=== PATIENT | male | born 1945 | race Caucasian/White ===

== ENCOUNTER 2018-03-05 04:23 | Emergency (ER) | payer MEDICARE, MEDICAID, SELFPAY ==
[2018-03-05 04:24] VITALS: BP 127/67; PULSE 72; RESP 16; TEMP 36.6; O2SAT 97; BMI 32.1
[2018-03-05 05:24] LABS: Absolute Lymphocyte Count 1.57 X10^3/ul (0.83-4.51); Basophil# 0.04 X10^3/uL; Basophil% 0.2 % (0-1); Eosinophil# 0.19 X10^3/uL; Eosinophils% 0.9 % (0-5); Hematocrit 44.4 % (40-54); Hemoglobin 15.5 g/dl (13.0-16.5); Lymphocyte # 1.57 X10^3/ul (4.0); Lymphocyte % 7.6 % (19-41); Mean Corp Hgb Conc 34.9 g/gl (32-36); Mean Corpuscular Hgb 33.3 pg (27.0-32.0); Mean Corpuscular Volume 95.5 fL (80-94); Mean Platelet Vol. 10.9 fl (6.2-12.0); Monocyte% 8.2 % (0-10); Neutrophil # 17.04 X10^3/uL (2.7-7.7); Neutrophil % 82.5 % (47-70); Platelet Count 257 K/mm3 (150-450); RBC Distribution Width CV 13.4 % (11.6-14.6); RBC Distribution Width SD 45.9 fl (35.1-43.9); Red Blood Count 4.65 M/mm3 (4.6-6.2); White Blood Count 20.7 K/mm3 (4.4-11.0)
[2018-03-05 05:27] LABS: Differential Indicated SCAN CRITERIA MET; POSITIVE COUNT NO; POSITIVE DIFFERENTIAL YES; POSITIVE MORPHOLOGY NO
--- NOTE | 2018-03-05 05:47 | CT_ITS ---
STUDY: CT ABDOMEN AND PELVIS WITH CONTRAST REASON FOR EXAM: Male, 73 years old. Right upper quadrant pain. Leukocytosis. Diarrhea for 3 days. RADIATION DOSAGE (If Supplied By Facility): CTDIvol = ( 19.11 ) mGy, DLP = ( 1074.03 ) mGycm TECHNIQUE: Transaxial images were obtained from the dome of the diaphragm to the symphysis pubis without oral contrast. 100 ml of Isovue 300 contrast was administered. Sagittal and coronal images were reconstructed. Individualized dose optimization techniques were used for this CT. COMPARISON: June 13, 2017. FINDINGS: Possible bilateral lower lobe subsegmental atelectasis or fibrosis. The visualized portions of the heart are within normal limits. Small hiatal hernia. Normal liver. Normal gallbladder and extrahepatic biliary system. Normal spleen. Normal pancreas. Normal bilateral adrenal glands. Stable bilateral renal cysts largest arising from the midpole left kidney measuring 3.1 cm. Normal visualized stomach. Wall thickening and perienteric inflammatory changes involving the distal ileum including the terminal ileum. Normal colon. The appendix is visualized and appears normal. There is atherosclerotic calcification of the abdominal aorta and common iliac arteries with 1.5 cm dilatation of the proximal left common iliac artery unchanged.. Normal inferior vena cava. Normal retroperitoneum. No intra-abdominal free air. Normal urinary bladder. Prostate gland radiation implant seeds. The prostate gland is not enlarged. Normal abdominal wall. Postkyphoplasty changes T11 present previously. Multilevel degenerative changes of the lumbar spine. No evidence of metastatic disease. CT/Abdomen/Pelvis W IV Cont ONLY IMPRESSION: Enteritis involving the distal ileum. Considerations include inflammatory bowel disease or infection. Small hiatal hernia. Stable bilateral renal cysts. Mild dilatation of left common iliac artery unchanged. Prostate gland radiation implant seeds. Postkyphoplasty changes T11. Electronically Signed: Charbel Mayen MD at 6:46 EDT , Service support ,
[2018-03-05 05:51] LABS: AST(SGOT) 29 U/L (15-37); Alanine Aminotransfer ALT/SGPT 28 U/L (16-61); Albumin, Serum 3.3 g/dL (3.2-5.0); Alkaline Phosphatase 64 U/L (45-117); Anion Gap 11 (5-15); BUN 12 mg/dL (7-18); BUN/Creat Ratio 15.9 RATIO (10-20); Bilirubin, Direct 0.23 mg/dL (0.00-0.30); Calcium,Total 8.4 mg/dL (8.5-10.1); Chloride 106 mmol/L (98-107); Creatinine, Serum 0.75 mg/dL (0.70-1.30); EST Glomerular Filtration Rate 108 mL/min (>60); Est Glom Filt Rate - Afr Amer 130 mL/min (>60); Estimated Creatinine Clearance 58.48 ml/min; Globulin 3.8 g/dL (2.2-4.2); Glucose 115 mg/dL (74-106); Lipase 128 U/L (73-393); Potassium 4.5 mmol/L (3.5-5.1); Protein, Total 7.1 g/dL (6.4-8.2); Sodium Level 139 mmol/L (136-145)
--- NOTE | 2018-03-05 06:36 | ED.DCSUM_ITS ---
- ER Visit Summary Date of Service: 03/05/18 Chief Complaint: Epigastric abdominal pain History of Present Illness: The patient is a 73 M with 3-day history of epigastric abdominal pain with loose stools. Denies any obvious melena no vomiting or any hematemesis. No fever. No drastic weight loss. He has had 4- 5 episodes per day for the last 3 days of loose stools. No history of infectious diarrhea. No recent antibiotic use. States epigastric pain is sharp at times. Denies any fever. No prior abdominal surgeries. Physical Examination: Older male no acute distress. Vital signs are stable afebrile. Initial blood pressure 120s over 67. He does not look septic or toxic. H EENT exam unremarkable. Moist wheeze membranes. Neck nontender no lymphadenopathy. Lungs clear to auscultation bilaterally. Heart regular rhythm no murmur. Abdomen is soft nondistended normal bowel sounds no peritoneal signs. No hernias no masses no organomegaly. He is tender in epigastric region only. No Dupont's or McBurney's point tenderness. No pulsatile mass. Ventral hernia that easily reduces on tone. No signs of obstruction, incarceration or strangulation. He is moving all 4 extremities. Neurovascular intact. Back exam nontender. Neurologic exam normal. Test Results: CBC is elevated 20,700. Normal H&H and bands. Chemistries normal. Normal gap and creatinine. Liver enzymes are normal other than total bilirubin slightly elevated at 1.4. Lipase is normal as is the troponin. EKG is a sinus rhythm rate of 65 with a first-degree AV block otherwise unchanged from prior EKG from May of last year. CT abdomen pelvis with IV contrast only shows enteritis of the distal ileum. Also prostate gland radiation implant seeds. Otherwise unremarkable. Read by the radiologist reviewed by me. Emergency Department Course and Treatment: Patient is currently resting comfortably. He has received IV Protonix. His abdominal exam is not significantly changed. Due to the white count he will undergo a CT abdomen and pelvis to evaluate him for epigastric abdominal pain. Treatment Plan: Repeat exams at both 05:17 and 0700 patient is doing well. Abdomen is benign. He and I discussed all his tests and results. He is comfortable being discharged home. We will continue his Protonix at home. Follow-up his primary care physician. Disposition: Discharge Impression: Acute epigastric abdominal pain of uncertain etiology Leukocytosis This note was generated with Betty dictation software. It may contain incorrect words, spelling, and punctuation that were not noted in review of the chart prior to signing ED Disposition - Plan for ED Patient: Chief Complaint: Diarrhea Referrals: Chaitanya Castaneda Jr., MD [Primary Care Provider] -
--- NOTE | 2018-03-05 07:03 | ED.DEP ---
ED Disposition - Plan for ED Patient: Disposition: Home or Assisted Living Chief Complaint: Diarrhea Instructions: ED Abdominal Pain Unkn Cause Referrals: Chaitanya Castaneda Jr., MD [Primary Care Provider] - 3-5 Days if not improving Additional Instructions: Continue your daily Protonix. Avoid excessive caffeine, alcohol and any spicy foods. [place] diet and increase slowly. Follow-up your primary care physician if not improving. Return to ER if feeling worse, black or bloody stool, vomiting blood. Or fever.
[2018-03-05 07:11] VITALS: BP 129/68; PULSE 71; RESP 15; O2SAT 96
== END 2018-03-05 07:11 | disposition home or self-care (01) ==
PROVIDERS: Emergency Provider Emergency Medicine; Family Provider Internal Medicine; PCP Internal Medicine
DX: R10.13 Epigastric pain (principal); D72.829 Elevated white blood cell count, unspecified; I44.0 Atrioventricular block, first degree; R19.7 Diarrhea, unspecified; I10 Essential (primary) hypertension; E78.00 Pure hypercholesterolemia, unspecified; K21.9 Gastro-esophageal reflux disease without esophagitis
CPT/HCPCS: 74177; 80048; 80076; 83690; 84484; 85025; 93005; 99285; J7050; Q9967; A4216

== ENCOUNTER 2018-03-07 10:39 | Outpatient (REF) | payer SELFPAY ==
[2018-03-07 10:40] VITALS: BP 143/80; PULSE 91; RESP 15; TEMP 36.6; BMI 31.8
--- NOTE | 2018-03-07 11:04 | ED.VISSUMM ---
- ER Visit Summary Date of Service: 03/07/18 Chief Complaint: Skin tear right upper extremity History of Present Illness: The patient is a 73 M presenting with skin tear right upper extremity. Patient was getting off the elevator and the door hit him on the right arm. He sustained a skin tear to the right forearm. He does not recall his last tetanus immunization. He is not on anticoagulants. No other injuries. Physical Examination: Vitals are stable. Patient is afebrile. Alert no acute distress. HEENT exam is unremarkable. Lungs are clear and equal bilaterally. Heart is regular rate and rhythm. Extremities 3 cm skin tear to right forearm, AFROM, normal distal pulse. Skin is warm and dry. No focal neurologic deficit. Remainder of exam is unremarkable. Emergency Department Course and Treatment: Patient is given tetanus IM. Wound was cleaned and dressed. Advised wound care instructions. Advised to follow with primary care physician. Advised return to ED for worsening complaints. Disposition: Discharge home Impression: Skin tear right upper extremity This note was generated with eduPad dictation software. It may contain incorrect words, spelling, and punctuation that were not noted in review of the chart prior to signing ED Disposition - Plan for ED Patient: Chief Complaint: Wound Instructions: ED Avulsion Dermal Referrals: Chaitanya Castaneda Jr., MD [Primary Care Provider] -
[2018-03-07] MEDS: Diphth,Pertuss(Acell),Tet Vac 0.5 ML Vial IM (11:31)
== END 2018-03-07 11:39 | disposition home or self-care (01) ==
LOC: ED 10:39
PROVIDERS: Family Provider Internal Medicine; PCP Internal Medicine; Visit Provider Emergency Medicine
DX: S51.811A Laceration without foreign body of right forearm, initial encounter (principal); W22.8XXA Striking against or struck by other objects, initial encounter; Y93.9 Activity, unspecified; Y92.89 Other specified places as the place of occurrence of the external cause; Y99.9 Unspecified external cause status; Z23 Encounter for immunization; I10 Essential (primary) hypertension; K21.9 Gastro-esophageal reflux disease without esophagitis
CPT/HCPCS: 90471; 90715

== ENCOUNTER 2018-06-24 09:34 | Observation (INO) | payer MEDICARE, MEDICAID, SELFPAY ==
[2018-06-24] VITALS (11 sets, daily range): BP systolic 121–166; BP diastolic 56–72; PULSE 52–85; RESP 14–18; TEMP 36.5–36.9; O2SAT 94–99; BMI 32.2; BMI 31.8
--- NOTE | 2018-06-24 09:51 | CT_ITS ---
STUDY: CT ABDOMEN AND PELVIS WITHOUT CONTRAST REASON FOR EXAM: Male, 73 years old. RT SIDED CP, RT FLANK PAIN, HX-KS, GERD, COPD, EMPHYSEMA, HTN, COPD, EMPHYSEMA, PROSTATE CA-FIDUCIALS FOR RAD TX RADIATION DOSAGE (If Supplied By Facility): CTDIvol = ( 20.19 ) mGy, DLP = ( 963.32 ) mGycm TECHNIQUE: Transaxial images were obtained from the dome of the diaphragm to the symphysis pubis without oral contrast, and without intravenous contrast. Sagittal and coronal images were reconstructed. Individualized dose optimization techniques were used for this CT. COMPARISON: None. FINDINGS: Posterior basilar atelectatic changes with granulomatous change the right lower lung. The visualized portions of the heart are within normal limits. Normal liver. Normal gallbladder and extrahepatic biliary system. Normal spleen. Normal pancreas. Normal bilateral adrenal glands. Hypodensity within the right lateral cortex of the right kidney consistent with cortical cyst is present measuring 1.7 cm. Exophytic left hypodense renal cyst measuring 3 cm in diameter is present with simple Hounsfield units. Normal visualized stomach. Normal small intestine. Normal colon. The appendix is visualized and appears normal. There is diffuse atherosclerotic calcification of the abdominal aorta, without a demonstrated aneurysm. Normal inferior vena cava. Normal retroperitoneum. Normal urinary bladder. Surgical clips are noted within the prostate. Normal abdominal wall. Normal osseous structures. CT/Abdomen/Pelvis without Cont IMPRESSION: Senescent changes and renal cysts as above with no evidence of acute intra-abdominal process or focal inflammation. Electronically Signed: Orlando Parker DO at 10:44 EST , Service support ,
--- NOTE | 2018-06-24 09:51 | EKG12_ITS ---
Test Reason : CP Blood Pressure : / mmHG Vent. Rate : 078 BPM Atrial Rate : 078 BPM P-R Int : 184 ms QRS Dur : 094 ms QT Int : 390 ms P-R-T Axes : 066 047 049 degrees QTc Int : 444 ms Normal sinus rhythm Normal ECG Confirmed by ADÁN WASHINGTON, RIAZ ([id number]), photographic editor MAGALY LYNN ([id number] on 06/27/2018 2:24:31 PM Referred By: KHLOE Confirmed By:RIAZ MCCAIN MD
--- NOTE | 2018-06-24 09:51 | RAD_ITS ---
STUDY: X-RAY CHEST REASON FOR EXAM: Male, 73 years old. Chest and back pain. TECHNIQUE: Single AP portable view of the chest. COMPARISON: 31 July 2014 FINDINGS: The lungs are clear and expanded. There is no demonstrated pleural abnormality. Normal size heart. Normal mediastinum and elvin. Normal visualized pulmonary arteries. There is atherosclerotic calcification of the aortic arch with tortuosity. Normal visualized thoracic spine. Normal visualized ribs, clavicles, and shoulders. There is no demonstrated abnormality of the visualized soft tissue structures of the upper abdomen. RAD/Chest 1 View (Portable) IMPRESSION: No evidence of acute cardiopulmonary process. Electronically Signed: Orlando Parker DO at 10:34 EST , Service support ,
[2018-06-24] MEDS: 0.9% Normal Saline 1,000 ML 150 ML IV (09:53)
[2018-06-24 10:06] LABS: Absolute Lymphocyte Count 1.86 X10^3/ul (0.83-4.51); Absolute Neutrophil Count 11.8 X10^3/uL (2.0-7.7); Basophil# 0.05 X10^3/uL; Basophil% 0.3 % (0-1); Eosinophil# 0.03 X10^3/uL; Eosinophils% 0.2 % (0-5); Hematocrit 46.1 % (40-54); Hemoglobin 15.9 g/dl (13.0-16.5); Lymphocyte # 1.86 X10^3/ul (4.0); Lymphocyte % 12.7 % (19-41); Mean Corp Hgb Conc 34.5 g/gl (32-36); Mean Corpuscular Hgb 32.1 pg (27.0-32.0); Mean Corpuscular Volume 92.9 fL (80-94); Mean Platelet Vol. 10.5 fl (6.2-12.0); Monocyte# 0.61 X10^3/uL; Monocyte% 4.2 % (0-10); Neutrophil # 11.75 X10^3/uL (2.7-7.7); Neutrophil % 80.5 % (47-70); Platelet Count 289 K/mm3 (150-450); RBC Distribution Width CV 13.8 % (11.6-14.6); RBC Distribution Width SD 45.8 fl (35.1-43.9); Red Blood Count 4.96 M/mm3 (4.6-6.2); White Blood Count 14.6 K/mm3 (4.4-11.0)
[2018-06-24 10:07] LABS: Differential Indicated SCAN CRITERIA MET; POSITIVE COUNT NO; POSITIVE DIFFERENTIAL NO; POSITIVE MORPHOLOGY YES
[2018-06-24 10:11] LABS: Bacteria 0 SEEN /hpf (None Seen); Mucous, Urine 0 SEEN /hpf (<or=2+); Red Blood Cells-Urine 0 SEEN /hpf (0-5); White Blood Cells 0 SEEN /hpf (0-5)
[2018-06-24 10:13] LABS: Color, Urine Yellow (Yellow); Glucose, Dipstick Normal (Normal); Ketone-Dipstick Negative (Negative); Leukocyte Esterase-Dipstick Negative /ul (Negative); Nitrite-Dipstick Negative (Negative); Occult Blood-Urine Negative /ul (Negative); Protein-Dipstick Negative (Negative); Urine Bilirubin Dipstick Negative (Negative); Urine Clarity Clear (Clear); Urine Urobilinogen Normal (Normal); Urine pH 6.5 (5.0 - 8.0)
[2018-06-24 10:13] LABS: D-Dimer Quantitative (DVT/PE) 0.56 FEU/ug/m (0.27-0.49)
[2018-06-24 10:17] LABS: ALB/GLOB Ratio 0.9 RATIO (0.9-2.4); AST(SGOT) 12 U/L (15-37); Alanine Aminotransfer ALT/SGPT 31 U/L (16-61); Albumin, Serum 3.6 g/dL (3.2-5.0); Alkaline Phosphatase 73 U/L (45-117); Anion Gap 9 (5-15); BUN 13 mg/dL (7-18); BUN/Creat Ratio 17.6 RATIO (10-20); Calcium,Total 8.4 mg/dL (8.5-10.1); Chloride 105 mmol/L (98-107); Creatinine, Serum 0.74 mg/dL (0.70-1.30); EST Glomerular Filtration Rate 110 mL/min (>60); Est Glom Filt Rate - Afr Amer 133 mL/min (>60); Estimated Creatinine Clearance 60.59 ml/min; Globulin 4.2 g/dL (2.2-4.2); Glucose 118 mg/dL (74-106); Lipase 152 U/L (73-393); Potassium 3.2 mmol/L (3.5-5.1); Protein, Total 7.8 g/dL (6.4-8.2); Sodium Level 138 mmol/L (136-145)
[2018-06-24 10:18] LABS: Squamous Epithelial Cells - UA 0-5 SEEN /hpf (0-5)
--- NOTE | 2018-06-24 11:10 | ED.VISSUMM ---
- ER Visit Summary Date of Service: 06/24/18 Chief Complaint: [Chest pain] History of Present Illness: The patient is a 73 M presents with chest pain that started this morning about an hour ago. Patient states that he was driving when he had sudden onset of severe pain in his right flank that radiated up his back and into his right shoulder. Patient did not develop diffuse chest discomfort that he described as tightness and a dull ache. Patient felt somewhat short of breath. Night any nausea or vomiting. Patient called EMS who gave him an aspirin and a nitro which resolved his pain however he states the pain was starting to go away before that. Patient is never had discomfort like that before. Patient does have a history of COPD, GERD, hypertension, prostate cancer and remote history of pulmonary embolism. Patient is not currently anticoagulated. Patient's last heart catheterization was in 1999 but he has had a stress test since he cannot remember how long ago. Patient himself does not have any cardiac history.] Physical Examination: [HEENT-PERRLA, EOMI. Cranial nerves II through XII grossly intact. TMs clear. Mucous membranes moist. No adenopathy. Cardiovascular-regular rate and rhythm without murmur or ectopy Lungs-clear to auscultation, chest wall stable without crepitus or subcu emphysema Abdomen-normoactive bowel sounds, soft, nontender, no rebound or rigidity, no peritoneal signs. Extremities-intact ?4, normal range of motion, normal pulses, atraumatic] Test Results: [EKG obtained on arrival showed a sinus rhythm with a ventricular rate of 78 bpm with no acute ST segment changes. CBC with differential obtained was significant for slightly elevated white blood cell count of 14.6, hemoglobin 16, hematocrit 46, platelets 289. Chemistries unremarkable other than a slightly depressed potassium of 3.2. LFTs were normal. Lipase normal. Urinalysis normal. Troponin was less than 0.015. Chest x-ray showed nothing acute. Flank CT showed nothing acute.] Emergency Department Course and Treatment: [Patient continued describes small amount of discomfort retrosternally. Patient was ordered a sublingual nitroglycerin in the department. Case will be discussed with hospitalist evaluate patient for admission] Treatment Plan: [Admit for further workup of his chest pain.] Disposition: [Admit] Impression: [Chest pain-rule out acute coronary syndrome] This note was generated with Dragon dictation software. It may contain incorrect words, spelling, and punctuation that were not noted in review of the chart prior to signing ED Disposition - Plan for ED Patient: Chief Complaint: Chest Other Referrals: Chaitanya Castaneda Jr., MD [Primary Care Provider] -
--- NOTE | 2018-06-24 14:07 | EKG12_ITS ---
Test Reason : CHEST PAIN Blood Pressure : / mmHG Vent. Rate : 052 BPM Atrial Rate : 052 BPM P-R Int : 182 ms QRS Dur : 076 ms QT Int : 430 ms P-R-T Axes : 059 050 055 degrees QTc Int : 399 ms Sinus bradycardia Otherwise normal ECG Confirmed by ADÁN WASHINGTON, RIAZ ([id number]), order editor MAGALY LYNN ([id number] on 06/29/2018 2:16:44 PM Referred By: JORDANA Confirmed By:RIAZ MCCAIN MD
[2018-06-24] MEDS: Mag Hydrox/Al Hydrox/Simeth 30 ML UDC PO (16:06)
--- NOTE | 2018-06-24 19:21 | HP.PCM_ITS ---
Problem List (1) Glaucoma Status: Chronic (2) Chest pain Status: Acute (3) Gastroesophageal reflux disease Status: Chronic (4) COPD (chronic obstructive pulmonary disease) Status: Chronic Comment: mild (5) HTN (hypertension) Status: Chronic History of Present Illness Date of Admission: 06/24/18 Chief Complaint: chest pain The patient is a 73 year old M with a PMH as below presenting with an acute onset flank pain on the right that radiated to his chest. He became SOB. No lightheadedness or dizziness. No arm or jaw pain, no diaphoresis. He pain improved with nitroglycerin and resolved by the time he was admitted. He has smoked a significant amount in the past, but has quit. Denies any cardiac history. In the ER troponins were negative and EKG was unremarkable. He has leukocytosis which appears chronic but was afebrile, D-Dimer was normal for age, and his troponin has remained negative x3. He is having intermittent burning pain. Past Medical History Past Medical History (Chronic Problems): Chronic Problems Glaucoma (Chronic) Tobacco user (Chronic) Gastroesophageal reflux disease (Chronic) COPD (chronic obstructive pulmonary disease) (Chronic) mild Hx pulmonary embolism (Chronic) HTN (hypertension) (Chronic) Prostate cancer (Chronic) Allergies Penicillins Allergy (Verified 06/24/18 09:40) Unknown Sulfa (Sulfonamide Antibiotics) Allergy (Verified 06/24/18 09:40) Unknown morphine Adverse Reaction (Intermediate, Verified 06/24/18 09:40) Shortness of breath lorazepam Adverse Reaction (Verified 06/24/18 09:40) Other blurry vision Home Medications: Ambulatory Orders Medication Instructions Recorded Amlodipine [Norvasc] 10 mg PO DAILY 01/27/14 Metoprolol(XL)Succ [Toprol Xl 100 mg PO QHS 01/27/14 (Beta Vivien)] Vitamin B Complex 1 each PO DAILY 01/27/14 Bimatoprost 0.01% [Lumigan 0.01%] 1 drop EACH EYE QHS 07/28/16 Timolol Maleate [Timoptic-XE 0.5%] 1 drop EACH EYE DAILY 07/28/16 Losartan Potassium 50 mg PO BID 05/07/17 Pantoprazole Sodium [Protonix] 40 mg PO DAILY 06/13/17 Nitroglycerin [Nitrostat] 0.4 mg SUBLINGUAL Q5M PRN 03/05/18 Oxycodone HCl/Acetaminophen 1 tablet PO Q8H PRN PRN 03/05/18 [Percocet 10-325 mg Tablet] Cyanocobalamin (Vitamin B-12) 1,000 mcg SL DAILY 06/24/18 [B-12] Tamsulosin HCl [Flomax] 0.4 mg PO QHS 06/24/18 Surgical History: tonsillectomy Psychiatric History: No pertinent psych hx, - - He has no hx of anxiety but his BP goes up with any stressor. He is afraid to go home even though the work up in the ER is negative. When the EMT's picked him up at his house his BP was over 200 he says. It was 173/91 with a HR of 103 when he initially presented to the ER. Smoking Status: Former smoker Tobacco Use: Cigarettes Alcohol: None Drugs: None - *Family History Maternal History Items: No pertinent history Paternal History Items: Heart Disease Review of Systems Constitutional: Denies: Chills, Fever, Weight Change HEENT: Denies: Head Aches, Sinus Congestion, Sinus Drainage Cardiovascular: Reports: Chest Pain. Denies: Palpitations Respiratory: Denies: Cough, Shortness of breath at rest, Sputum production Gastrointestinal: Denies: Abdominal Pain, Nausea, Vomiting Genitourinary: Denies: Dysuria Musculoskeletal: Denies: Joint Pain, Joint Tenderness Skin: Denies: Rash, Wounds Neurological: Denies: Numbness, Tingling, Focal weakness Psychiatric: Denies: Anxiety, Depression Hematologic/ Lymphatic: Denies: Easy Bruising, Easy Bleeding VTE Information - Inpt Only VTE Present on Admission: No Patient Problems: Active and Suspected Problems Chest pain (Acute) - Physical Exam General: Alert, Oriented x3, Cooperative, No apparent distress HEENT: Atraumatic, PERRLA, EOMI, Normocephalic Oral: Moist Mucosa Neck: Supple, No JVD Lungs: Clear to auscultation, Normal air movement, No rhonchi, No wheeze, No rales Cardiovascular: Regular rate, Regular Rhythm, Normal S1, Normal S2, No murmurs Abdomen: Soft, Non Tender, Non-Distended, No Hepato-splenomegaly Extremities: No edema, Capillary Refill Less than 3 Seconds Skin: No rashes, No breakdown Neurological: Neuro grossly intact, Sensory exam intact to light touch and pain Psych/Mental Status: Normal Affect, Appropriate Vital Signs Temp Pulse Resp BP Pulse Ox 98.4 F 68 18 154/72 H 96 06/24/18 17:25 06/24/18 17:25 06/24/18 17:25 06/24/18 17:25 06/24/18 17:25 Oxygen Delivery Method Room Air Weight: 197 lb 5.019 oz Body Mass Index (BMI) 31.8 Intake and Output for Last 24 Hours 06/22/18 06/23/18 06/24/18 23:59 23:59 23:59 Intake Total 550 / 550 Balance 550 / 550 Laboratory Tests Past 24 Hrs 06/24/18 06/24/18 06/24/18 09:50 09:50 09:50 WBC 14.6 H RBC 4.96 Hgb 15.9 Hct 46.1 MCV 92.9 MCH 32.1 H MCHC 34.5 RDW 13.8 RDW Differential 45.8 H Plt Count 289 MPV 10.5 Immature Gran % (Auto) 2.100 H Neut % (Auto) 80.5 H Lymph % (Auto) 12.7 L [place] % (Auto) 4.2 Eos % (Auto) 0.2 Baso % (Auto) 0.3 Absolute Neuts (auto) 11.8 H Absolute Lymphs (auto) 1.86 Total Counted Not Reportable Diff Path Review May foll D-Dimer Quant (PE/DVT) 0.56 H* Sodium 138 Potassium 3.2 L Chloride 105 Carbon Dioxide 24.0 Anion Gap 9 BUN 13 Creatinine 0.74 Estim Creat Clear Calc 60.59 Est GFR (MDRD) Af Amer 133 Est GFR (MDRD) Non-Af 110 BUN/Creatinine Ratio 17.6 Glucose 118 H Calcium 8.4 L Total Bilirubin 0.80 AST 12 L ALT 31 Alkaline Phosphatase 73 Troponin I < 0.015 Total Protein 7.8 Albumin 3.6 Globulin 4.2 Albumin/Globulin Ratio 0.9 Lipase 152 Urine Color Urine Clarity Urine pH Ur Specific [place] Urine Protein Urine Glucose (UA) Urine Ketones Urine Occult Blood Urine Nitrite Urine Bilirubin Urine Urobilinogen Ur Leukocyte Esterase Urine RBC Urine WBC Ur Squamous Epith Cells Urine Bacteria Urine Mucus 06/24/18 06/24/18 06/24/18 10:00 14:27 17:25 WBC RBC Hgb Hct MCV MCH MCHC RDW RDW Differential Plt Count MPV Immature Gran % (Auto) Neut % (Auto) Lymph % (Auto) [place] % (Auto) Eos % (Auto) Baso % (Auto) Absolute Neuts (auto) Absolute Lymphs (auto) Total Counted Diff Path Review D-Dimer Quant (PE/DVT) Sodium Potassium Chloride Carbon Dioxide Anion Gap BUN Creatinine Estim Creat Clear Calc Est GFR (MDRD) Af Amer Est GFR (MDRD) Non-Af BUN/Creatinine Ratio Glucose Calcium Total Bilirubin AST ALT Alkaline Phosphatase Troponin I < 0.015 < 0.015 Total Protein Albumin Globulin Albumin/Globulin Ratio Lipase Urine Color Yellow Urine Clarity Clear Urine pH 6.5 Ur Specific [place] 1.010 Urine Protein Negative Urine Glucose (UA) Normal Urine Ketones Negative Urine Occult Blood Negative Urine Nitrite Negative Urine Bilirubin Negative Urine Urobilinogen Normal Ur Leukocyte Esterase Negative Urine RBC 0 SEEN Urine WBC 0 SEEN Ur Squamous Epith Cells 0-5 SEEN Urine Bacteria 0 SEEN Urine Mucus 0 SEEN Assessment/Plan All Active Problems Chest pain (Acute) Near syncope (Acute) Hyperglycemia (Acute) 1. Chest pain/HTN/flank pain - Will risk stratify with lipid panel for possible statin use - He will be started on an aspirin - Possible stress test on tuesday - GI cocktail to see if that helps with his burning chest pain - CT abd/pelvis was negative - c/w home BP meds 2. GERD - GI cocktail for his burning pain - c/w his PPI 3. Glaucoma - stable - c/w home eye drops 4. BPH - stable - c/w flomax DVT: Heparin diet: Cardiac Code Visit OBSV E&M: [id number] Initial observation care L3
[2018-06-24 20:09] LABS: Hemoglobin A1c 5.9 % (4.2-6.3)
[2018-06-24] MEDS: 0.9% NaCl Peripheral Flush Adult/Peds IV (22:08)
[2018-06-24] MEDS: Heparin Injection (Vial) 5,000 UNIT/ML VIAL 5000 UNIT SC (22:10)
[2018-06-25 03:00] VITALS: PULSE 67
[2018-06-25 04:00] VITALS: BP 153/74; PULSE 80; RESP 16; TEMP 36.9; O2SAT 94
[2018-06-25 05:52] LABS: Absolute Lymphocyte Count 1.73 X10^3/ul (0.83-4.51); Absolute Neutrophil Count 8.6 X10^3/uL (2.0-7.7); Basophil# 0.04 X10^3/uL; Basophil% 0.4 % (0-1); Eosinophil# 0.02 X10^3/uL; Eosinophils% 0.2 % (0-5); Hematocrit 43.4 % (40-54); Hemoglobin 14.9 g/dl (13.0-16.5); Lymphocyte # 1.73 X10^3/ul (4.0); Lymphocyte % 15.3 % (19-41); Mean Corp Hgb Conc 34.3 g/gl (32-36); Mean Corpuscular Hgb 32.3 pg (27.0-32.0); Mean Corpuscular Volume 93.9 fL (80-94); Mean Platelet Vol. 10.9 fl (6.2-12.0); Monocyte# 0.73 X10^3/uL; Monocyte% 6.5 % (0-10); Neutrophil # 8.64 X10^3/uL (2.7-7.7); Neutrophil % 76.4 % (47-70); Platelet Count 266 K/mm3 (150-450); RBC Distribution Width SD 46.3 fl (35.1-43.9); Red Blood Count 4.62 M/mm3 (4.6-6.2); White Blood Count 11.3 K/mm3 (4.4-11.0)
[2018-06-25 06:03] LABS: Anion Gap 7 (5-15); BUN 11 mg/dL (7-18); BUN/Creat Ratio 19.7 RATIO (10-20); Calcium,Total 8.3 mg/dL (8.5-10.1); Chloride 109 mmol/L (98-107); Cholesterol 144 mg/dL (200); Creatinine, Serum 0.56 mg/dL (0.70-1.30); EST Glomerular Filtration Rate 152 mL/min (>60); Est Glom Filt Rate - Afr Amer 184 mL/min (>60); Estimated Creatinine Clearance 58.48 ml/min; Glucose 105 mg/dL (74-106); High Density Lipoprotein 36 mg/dL; Potassium 4.2 mmol/L (3.5-5.1); Sodium Level 141 mmol/L (136-145); Triglycerides 82 mg/dL; Very Low Density Lipoprotein 16 mg/dL (5-40)
--- NOTE | 2018-06-25 06:54 | PCM.PN.HOSP ---
Patient Problems: Active and Suspected Problems Chest pain (Acute) Subjective: No complaints today, pain has resolved Vitals/I&O's: Vital Signs Temp Pulse Resp BP Pulse Ox 98.5 F 80 16 153/74 H 94 06/25/18 04:00 06/25/18 04:00 06/25/18 04:00 06/25/18 04:00 06/25/18 04:00 Oxygen Delivery Method Room Air Weight: 197 lb 5.019 oz Body Mass Index (BMI) 31.8 Intake and Output for Last 24 Hours 06/23/18 06/24/18 06/25/18 23:59 23:59 23:59 Intake Total 550 / 550 890 / 890 Balance 550 / 550 890 / 890 General: Alert, Oriented x3, Cooperative, No apparent distress HEENT: Atraumatic, PERRLA, EOMI, Normocephalic Oral: Moist Mucosa Neck: Supple, No JVD Lungs: Clear to auscultation, Normal air movement, No rhonchi, No wheeze, No rales Cardiovascular: Regular rate, Regular Rhythm, Normal S1, Normal S2, No murmurs Abdomen: Soft, Non Tender, Non-Distended, No Hepato-splenomegaly Extremities: No edema, Capillary Refill Less than 3 Seconds Skin: No rashes, No breakdown Neurological: Neuro grossly intact, Sensory exam intact to light touch and pain Psych/Mental Status: Normal Affect, Appropriate Laboratory Results 06/24/18 09:50: WBC 14.6 H, RBC 4.96, Hgb 15.9, Hct 46.1, MCV 92.9, MCH 32.1 H, MCHC 34.5, RDW 13.8, RDW Differential 45.8 H, Plt Count 289, MPV 10.5, Immature Gran % (Auto) 2.100 H, Neut % (Auto) 80.5 H, Lymph % (Auto) 12.7 L, [place] % (Auto) 4.2, Eos % (Auto) 0.2, Baso % (Auto) 0.3, Absolute Neuts (auto) 11.8 H, Absolute Lymphs (auto) 1.86, Total Counted Not Reportable, Diff Path Review November06/24/18 09:50: D-Dimer Quant (PE/DVT) 0.56 H* 06/24/18 09:50: Sodium 138, Potassium 3.2 L, Chloride 105, Carbon Dioxide 24.0, Anion Gap 9, BUN 13, Creatinine 0.74, Estim Creat Clear Calc 60.59, Est GFR (MDRD) Af Amer 133, Est GFR (MDRD) Non-Af 110, BUN/Creatinine Ratio 17.6, Glucose 118 H, Calcium 8.4 L, Total Bilirubin 0.80, AST 12 L, ALT 31, Alkaline Phosphatase 73, Troponin I < 0.015, Total Protein 7.8, Albumin 3.6, Globulin 4.2, Albumin/Globulin Ratio 0.9, Lipase 152 06/24/18 09:50: Hemoglobin A1c 5.9 06/24/18 10:00: Urine Color Yellow, Urine Clarity Clear, Urine pH 6.5, Ur Specific [place] 1.010, Urine Protein Negative, Urine Glucose (UA) Normal, Urine Ketones Negative, Urine Occult Blood Negative, Urine Nitrite Negative, Urine Bilirubin Negative, Urine Urobilinogen Normal, Ur Leukocyte Esterase Negative, Urine RBC 0 SEEN, Urine WBC 0 SEEN, Ur Squamous Epith Cells 0-5 SEEN, Urine Bacteria 0 SEEN, Urine Mucus 0 SEEN 06/24/18 14:27: Troponin I < 0.015 06/24/18 17:25: Troponin I < 0.015 06/25/18 04:45: WBC Pending, RBC Pending, Hgb Pending, Hct Pending, MCV Pending, MCH Pending, MCHC Pending, RDW Pending, RDW Differential Pending, Plt Count Pending, Neut % (Auto) Pending, Absolute Neuts (auto) Pending, Total Counted Pending 06/25/18 04:45: Sodium 141, Potassium 4.2, Chloride 109 H, Carbon Dioxide 25.0, Anion Gap 7, BUN 11, Creatinine 0.56 L, Estim Creat Clear Calc 58.48, Est GFR (MDRD) Af Amer 184, Est GFR (MDRD) Non-Af 152, BUN/Creatinine Ratio 19.7, Glucose 105, Calcium 8.3 L, Triglycerides 82, Cholesterol 144, LDL Cholesterol 92, VLDL Cholesterol 16, HDL Cholesterol 36 L Current Medications Acetaminophen (Tylenol) 325 mg PO Q8H PRN PRN PRN Reason: PAIN Aspirin (Aspirin, Baby) 81 mg PO DAILY@0800 [facility] Heparin Sodium (Porcine) (Heparin Na) 5,000 unit SC Q12 JOE Last Admin: 06/24/18 22:10 Dose: 5,000 unit Magnesium Hydroxide (Milk Of Magnesia) 30 ml PO DAILY PRN PRN Reason: Constipation Oxycodone HCl (Oxyir) 10 mg PO Q8H PRN PRN PRN Reason: SEVERE PAIN (6-10/10) Sodium Chloride () 5 - 15 ml IV UD PRN PRN Reason: SALINE FLUSH Last Admin: 06/24/18 22:08 Dose: 10 ml Medical Necessity - Tobacco Use Smoking Status: Former smoker Tobacco Use: Cigarettes Assessment/Plan All Active Problems Chest pain (Acute) Near syncope (Acute) Hyperglycemia (Acute) 1. Chest pain/HTN/flank pain - He will be started on an aspirin - Had a stress test in [place] in August which was negative and he has an appointment with cardiology on tuesday - CT abd/pelvis was negative - c/w home BP meds - ASCVD is 34%, though this is mostly influenced by his age, will start lipitor 40 mg - He would like to go home today since he feels great 2. GERD - GI cocktail for his burning pain - c/w his PPI 3. Glaucoma - stable - c/w home eye drops 4. BPH - stable - c/w flomax DVT: Heparin diet: Cardiac Code Visit OBSV E&M: 17687 Initial observation care L2
[2018-06-25 07:06] VITALS: PULSE 62
[2018-06-25 07:08] LABS: POSITIVE COUNT NO; POSITIVE DIFFERENTIAL NO; POSITIVE MORPHOLOGY NO
[2018-06-25 07:49] VITALS: RESP 18
[2018-06-25 09:28] VITALS: BP 171/86; PULSE 89; RESP 18; TEMP 37.2; O2SAT 97
[2018-06-25 10:23] LABS: Bacteria 0 SEEN /hpf (None Seen); Mucous, Urine 0 SEEN /hpf (<or=2+); Red Blood Cells-Urine 0 SEEN /hpf (0-5); Squamous Epithelial Cells - UA 0 SEEN /hpf (0-5); White Blood Cells 0 SEEN /hpf (0-5)
[2018-06-25 10:26] LABS: Color, Urine Yellow (Yellow); Glucose, Dipstick Normal (Normal); Ketone-Dipstick Negative (Negative); Leukocyte Esterase-Dipstick Negative /ul (Negative); Nitrite-Dipstick Negative (Negative); Occult Blood-Urine Negative /ul (Negative); Protein-Dipstick 30 mg/dl (Negative); Specific Gravity, Urine 1.015 (1.002-1.030); Urine Bilirubin Dipstick Negative (Negative); Urine Clarity Clear (Clear); Urine Urobilinogen Normal (Normal)
--- NOTE | 2018-06-25 11:06 | DCINST_ITS ---
- Discharge Diagnoses Current Active Problems: Current Active and Chronic Problems Glaucoma (Chronic) Chest pain (Acute) You will use the following diet at home:: Cardiac Your food should be the consistency of: Regular Your liquids should be the consistency of: Regular/Thin Discharge Activity: No Restrictions Call your doctor if you observe: Shortness of breath, Dizziness, Chest pain, Increased palpitations (irregular heartbeat) Allergies/Adverse Reactions: Allergies Penicillins Allergy (Verified 06/24/18 09:40) Unknown Sulfa (Sulfonamide Antibiotics) Allergy (Verified 06/24/18 09:40) Unknown morphine Adverse Reaction (Intermediate, Verified 06/24/18 09:40) Shortness of breath lorazepam Adverse Reaction (Verified 06/24/18 09:40) Other blurry vision Medications to take at Discharge Amlodipine [Norvasc] 10 mg PO DAILY 01/27/14 Metoprolol(XL)Succ [Toprol Xl (Beta Vivien)] 100 mg PO QHS 01/27/14 Vitamin B Complex 1 each PO DAILY 01/27/14 Bimatoprost 0.01% [Lumigan 0.01%] 1 drop EACH EYE QHS 07/28/16 Timolol Maleate [Timoptic-XE 0.5%] 1 drop EACH EYE DAILY 07/28/16 Losartan Potassium 50 mg PO BID 05/07/17 Pantoprazole Sodium [Protonix] 40 mg PO DAILY 06/13/17 Nitroglycerin [Nitrostat] 0.4 mg SUBLINGUAL Q5M PRN 03/05/18 Oxycodone HCl/Acetaminophen [Percocet 10-325 mg Tablet] 1 tablet PO Q8H PRN PRN 03/05/18 Cyanocobalamin (Vitamin B-12) [B-12] 1,000 mcg SL DAILY 06/24/18 Tamsulosin HCl [Flomax] 0.4 mg PO QHS 06/24/18 Aspirin [Aspirin, Baby] 81 mg PO DAILY@0800 #30 tab.chew 06/25/18 Atorvastatin Calcium [Lipitor] 40 mg PO QHS #30 tab 06/25/18 The following prescriptions were given: Aspirin [Aspirin, Baby] 81 mg PO DAILY@0800 #30 tab.chew Atorvastatin Calcium [Lipitor] 40 mg PO QHS #30 tab Primary Care Physician: Chaitanya Castaneda Jr., MD [Primary Care Provider] - Please follow up with your Primary Care Physician in: In 3-5 days Test Results: Test results from this visit will be discussed in further detail at your follow- up appointment, if applicable.
[2018-06-25] MEDS: Vitamin B Comp W-C Capsule 1 CAP PO (11:21)
[2018-06-25] MEDS: Aspirin 81 MG TAB.CHEW PO (11:21)
[2018-06-25] MEDS: Losartan Potassium 50 MG Tablet PO (11:21)
[2018-06-25] MEDS: Cyanocobalamin 500 MCG Tablet 1000 MCG PO (11:21)
[2018-06-25] MEDS: Pantoprazole Sodium 40 MG Tablet PO (11:21)
[2018-06-25] MEDS: amLODIPine 10 MG Tablet PO (11:22)
--- NOTE | 2018-06-25 12:05 | DS.PCM_ITS ---
Discharge Date and Diagnosis Date of Admission: 06/24/18 Date of Discharge: 06/25/18 - Secondary Discharge Diagnosis Chronic Problems Glaucoma (Chronic) Tobacco user (Chronic) Gastroesophageal reflux disease (Chronic) COPD (chronic obstructive pulmonary disease) (Chronic) mild Hx pulmonary embolism (Chronic) HTN (hypertension) (Chronic) Prostate cancer (Chronic) Hospital Course and Treatment Imaging Results: CT abd/pelvis: IMPRESSION: Senescent changes and renal cysts as above with no evidence of acute intra-abdominal process or focal inflammation. CXR: IMPRESSION: No evidence of acute cardiopulmonary process. Operations: None Procedures: None Summary of Care Provided: Per HPI: The patient is a 73 year old M with a PMH as below presenting with an acute onset flank pain on the right that radiated to his chest. He became SOB. No lightheadedness or dizziness. No arm or jaw pain, no diaphoresis. He pain improved with nitroglycerin and resolved by the time he was admitted. He has smoked a significant amount in the past, but has quit. Denies any cardiac history. In the ER troponins were negative and EKG was unremarkable. He has leukocytosis which appears chronic but was afebrile, D-Dimer was normal for age, and his troponin has remained negative x3. He is having intermittent burning pain. Hospital Course: 1. Chest Pain/HTN/Flank Pain - He presented with flank pain on the right that then had progressed across his chest which is why he presented to the ER. He was admitted for chest pain rule out after CT scan of his abdomen and pelvis was negative. During his admission he was found to have 2 EKGs were both normal sinus without any ischemic changes, and 3 troponins were negative. On the morning of his discharge we discussed the fact that he had had a normal stress test in August at [facility], and currently he was not having any chest pain. He did not want to stay for a stress test on Tuesday since he was going to be seeing a patient service technician pst on Tuesday where his could be having carotid ultrasound. He was discharged on an aspirin and his ASCVD risk was obtained at around 34% mostly due to his age. He was discharged on a statin as well. 2. His other medical diagnoses were evaluated and his home medications were continued were appropriate. - Physical Exam Vital Signs Temp Pulse Resp BP Pulse Ox 98.9 F 89 18 171/86 H 97 06/25/18 09:28 06/25/18 09:28 06/25/18 09:28 06/25/18 09:28 06/25/18 09:28 Oxygen Delivery Method Room Air Weight: 197 lb 5.019 oz Body Mass Index (BMI) 31.8 Intake and Output for Last 24 Hours 06/23/18 06/24/18 06/25/18 23:59 23:59 23:59 Intake Total 550 / 550 890 / 890 Balance 550 / 550 890 / 890 Laboratory Tests Past 24 Hrs 06/24/18 06/24/18 06/24/18 09:50 14:27 17:25 WBC RBC Hgb Hct MCV MCH MCHC RDW RDW Differential Plt Count MPV Immature Gran % (Auto) Neut % (Auto) Lymph % (Auto) [place] % (Auto) Eos % (Auto) Baso % (Auto) Absolute Neuts (auto) Absolute Lymphs (auto) Total Counted Sodium Potassium Chloride Carbon Dioxide Anion Gap BUN Creatinine Estim Creat Clear Calc Est GFR (MDRD) Af Amer Est GFR (MDRD) Non-Af BUN/Creatinine Ratio Glucose Hemoglobin A1c 5.9 Calcium Troponin I < 0.015 < 0.015 Triglycerides Cholesterol LDL Cholesterol VLDL Cholesterol HDL Cholesterol Urine Color Urine Clarity Urine pH Ur Specific [place] Urine Protein Urine Glucose (UA) Urine Ketones Urine Occult Blood Urine Nitrite Urine Bilirubin Urine Urobilinogen Ur Leukocyte Esterase Urine RBC Urine WBC Ur Squamous Epith Cells Urine Bacteria Urine Mucus 06/25/18 06/25/18 06/25/18 04:45 04:45 10:15 WBC 11.3 H RBC 4.62 Hgb 14.9 Hct 43.4 MCV 93.9 MCH 32.3 H MCHC 34.3 RDW 14.0 RDW Differential 46.3 H Plt Count 266 MPV 10.9 Immature Gran % (Auto) 1.200 H Neut % (Auto) 76.4 H Lymph % (Auto) 15.3 L [place] % (Auto) 6.5 Eos % (Auto) 0.2 Baso % (Auto) 0.4 Absolute Neuts (auto) 8.6 H Absolute Lymphs (auto) 1.73 Total Counted Not Reportable Sodium 141 Potassium 4.2 Chloride 109 H Carbon Dioxide 25.0 Anion Gap 7 BUN 11 Creatinine 0.56 L Estim Creat Clear Calc 58.48 Est GFR (MDRD) Af Amer 184 Est GFR (MDRD) Non-Af 152 BUN/Creatinine Ratio 19.7 Glucose 105 Hemoglobin A1c Calcium 8.3 L Troponin I Triglycerides 82 Cholesterol 144 LDL Cholesterol 92 VLDL Cholesterol 16 HDL Cholesterol 36 L Urine Color Yellow Urine Clarity Clear Urine pH 6.0 Ur Specific [place] 1.015 Urine Protein 30 H Urine Glucose (UA) Normal Urine Ketones Negative Urine Occult Blood Negative Urine Nitrite Negative Urine Bilirubin Negative Urine Urobilinogen Normal Ur Leukocyte Esterase Negative Urine RBC 0 SEEN Urine WBC 0 SEEN Ur Squamous Epith Cells 0 SEEN Urine Bacteria 0 SEEN Urine Mucus 0 SEEN Discharge Activity: No Restrictions Call your doctor if you observe: Shortness of breath, Dizziness, Chest pain, Increased palpitations (irregular heartbeat) Home Medications: Medications to take at Discharge Amlodipine [Norvasc] 10 mg PO DAILY 01/27/14 Metoprolol(XL)Succ [Toprol Xl (Beta Vivien)] 100 mg PO QHS 01/27/14 Vitamin B Complex 1 each PO DAILY 01/27/14 Bimatoprost 0.01% [Lumigan 0.01%] 1 drop EACH EYE QHS 07/28/16 Timolol Maleate [Timoptic-XE 0.5%] 1 drop EACH EYE DAILY 07/28/16 Losartan Potassium 50 mg PO BID 05/07/17 Pantoprazole Sodium [Protonix] 40 mg PO DAILY 06/13/17 Nitroglycerin [Nitrostat] 0.4 mg SUBLINGUAL Q5M PRN 03/05/18 Oxycodone HCl/Acetaminophen [Percocet 10-325 mg Tablet] 1 tablet PO Q8H PRN PRN 03/05/18 Cyanocobalamin (Vitamin B-12) [B-12] 1,000 mcg SL DAILY 06/24/18 Tamsulosin HCl [Flomax] 0.4 mg PO QHS 06/24/18 Aspirin [Aspirin, Baby] 81 mg PO DAILY@0800 #30 tab.chew 06/25/18 Atorvastatin Calcium [Lipitor] 40 mg PO QHS #30 tab 06/25/18 Following Prescrptions Were Given to Patient: Aspirin [Aspirin, Baby] 81 mg PO DAILY@0800 #30 tab.chew Atorvastatin Calcium [Lipitor] 40 mg PO QHS #30 tab Primary Care Physician: Chaitanya Castaneda Jr., MD [Primary Care Provider] - Please follow up with your Primary Care Physician in: In 3-5 days Disposition: Home Patient Condition:: Good Medical Necessity - Tobacco Use Smoking Status: Former smoker Tobacco Use: Cigarettes Meaningful Use Info Meaningful Use Diagnoses (Choose all that apply): None applicable Code Visit OBSV E&M: 87471 Observation care discharge
[2018-06-27 14:43] LABS: Pathologist Review Reviewed
--- OUTSIDE RECORDS SUMMARY | 2018-08-18 19:41 | XMS RPT_ITS ---
:1945 Author Organization [facility] Care Team Providers Name Role Phone CHAITANYA LEBRON MD, JR. Attending Unavailable CHAITANYA LEBRON MD, JR. Primary Care Unavailable CHAITANYA LEBRON MD, JR. Attending Unavailable CHAITANYA LEBRON MD, JR. Primary Care Unavailable HAZEL ISSA CNP Attending Unavailable CHAITANYA LEBRON MD, JR. Primary Care Unavailable Leonel Gandhi, Chaitanya Primary Care Unavailable Eder Smith Attending Unavailable Leonel Gandhi, Chaitanya Primary Care Unavailable Debra Marquez Attending Unavailable Delgado Salguero Attending Unavailable Leonel Gandhi, Chaitanya Primary Care Unavailable Leonel Gandhi, Chaitanya Primary Care Unavailable Kotsonis, Mihir F Admitting Unavailable Kotsonis, Mihir F Attending Unavailable Kotsonis, Mihir F Admitting Unavailable Kotsonis, Mihir F Attending Unavailable Leonel Gandhi, Chaitanya Primary Care Unavailable Kotsonis, Mihir F Consulting Unavailable Kotsonis, Mihir F Admitting Unavailable Kotsonis, Mihir F Attending Unavailable Leonel Gandhi, Chaitanya Primary Care Unavailable Kotsonis, Mihir F Consulting Unavailable PROBLEMS PROBLEMS No Problem Records FoundPROCEDURES PROCEDURES No Procedure Records FoundRESULTS RESULTS VL CAROTID BILATERAL Observed: 06/30/2018 Status: F Source: [place] [employer] DUPLEX 8:52 AM [facility] REPOSITORY ORIGINAL Carotid duplex examination using B-mode, color flow and spectral Doppler CLINICAL STATEMENT: stenosis, , follow-up previous carotid stenosis, history of hypertension, coronary artery disease and increased cholesterol COMPARISON: 03/11/2015 FINDINGS: There is intimal thickening and a small amount of partially calcified atherosclerotic plaque in the distal common and proximal internal carotid arteries on both sides. RIGHT SIDE: Maximum morphologic diameter stenosis in the carotid bulb is 38%. CCA PSV: 76 cm/s ICA PSV: 72 cm/s ICA/CCA ratio: 0.94 ECA PSV: 197 cm/s Vertebral artery: Antegrade , low resistance Subclavian artery: Antegrade LEFT SIDE: Maximum morphologic diameter stenosis in the carotid bulb is 30%. CCA PSV: 73 cm/s ICA PSV: 99 cm/s ICA/CCA ratio: 1.54 ECA PSV: 177 cm/s Vertebral artery: Antegrade , low resistance Subclavian artery: Antegrade IMPRESSION: There is atherosclerotic disease bilaterally. No ICA stenosis of greater than 50% is seen. Findings are not significantly changed from the earlier study. Interpreted By: Enrique Jackson MD Preliminary Report By: Enrique Jackson MD Electronically Signed By: Enrique Jackson MD Dictated Date: 07/01/2018 9:53:32 AM Prelim Date: 07/01/2018 9:53:32 AM Sign Date: 07/01/2018 9:55:40 AM 12 LEAD ELECTROCARDIOGRAM Observed: 06/29/2018 Status: F Source: [place] 2:17 PM [facility] REPOSITORY [facility] Cardiovascular Services [address] [place] [address] 12 Lead EKG 06/24/18 1425 MR#: [id number] Acct: [id number] Name: TRI FRANK Jr. Rep #: [id number] : 1945 73 From: Joel Mccain MD Attending Dr: Mihir Harden MD Status: DIS HARMAN Ordering Dr: Mihir Harden MD Date: 06/24/18 Location: [facility] Sex: M C Admitted: 06/24/18 Test Reason : CHEST PAIN Blood Pressure : / mmHG Vent. Rate : 052 BPM Atrial Rate : 052 BPM P-R Int : 182 ms QRS Dur : 076 ms QT Int : 430 ms P-R-T Axes : 059 050 055 degrees QTc Int : 399 ms Sinus bradycardia Otherwise normal ECG Confirmed by ADÁN WASHINGTON, JOEL ([id number]), editor greeting card MAGALY LYNN ([id number]) on 06/29/2018 2:16:44 PM Referred By: JORDANA Confirmed By:JOEL MCCAIN MD 06/29/18 1416 Date Joel Mccain MD CC: Chaitanya Lebron Jr., MD; Mihir Harden MD Signed 12 LEAD ELECTROCARDIOGRAM Observed: 06/27/2018 Status: F Source: [place] 2:25 PM [facility] REPOSITORY [facility] Cardiovascular Services [address] [place] [address] 12 Lead EKG 06/24/18 0944 MR#: [id number] Acct: [id number] Name: TRI FRANK Jr. Rep #: [id number] : 1945 73 From: Joel Mccain MD Attending Dr: Mihir Harden MD Status: DIS HARMAN Ordering Dr: Sonia Marion DO Date: 06/24/18 Location: [facility] Sex: M C Admitted: 06/24/18 Test Reason : CP Blood Pressure : / mmHG Vent. Rate : 078 BPM Atrial Rate : 078 BPM P-R Int : 184 ms QRS Dur : 094 ms QT Int : 390 ms P-R-T Axes : 066 047 049 degrees QTc Int : 444 ms Normal sinus rhythm Normal ECG Confirmed by ADÁN WASHINGTON, JOEL ([id number]), editor greeting card MAGALY LYNN ([id number]) on 06/27/2018 2:24:31 PM Referred By: RU Confirmed By:JOEL MCCAIN MD 06/27/18 1424 Date Joel Mccain MD CC: Chaitanya Lebron Jr., MD; Mihir Harden MD; Sonia Marion DO Signed DISCHARGE SUMMARY Observed: 06/25/2018 Status: F Source: [place] 12:08 PM [facility] REPOSITORY [facility] Medical Records Department [address] [place] [address] Discharge Summary 06/25/18 1201 MR#: [id number] Acct: [id number] Name: TRI FRANK JrShanthi Rep #: [id number] : 1945 73 From: Mihir Harden MD PCP: Chaitanya Lebron Jr., MD Status: DIS HARMAN Y Location: [place] [address]-1 Discharge Date and Diagnosis Date of Admission: 06/24/18 Date of Discharge: 06/25/18 - Secondary Discharge Diagnosis Chronic Problems Glaucoma (Chronic) Tobacco user (Chronic) Gastroesophageal reflux disease (Chronic) COPD (chronic obstructive pulmonary disease) (Chronic) mild Hx pulmonary embolism (Chronic) HTN (hypertension) (Chronic) Prostate cancer (Chronic) Hospital Course and Treatment Imaging Results: CT abd/pelvis: IMPRESSION: Senescent changes and renal cysts as above with no evidence of acute intra-abdominal process or focal inflammation. CXR: IMPRESSION: No evidence of acute cardiopulmonary process. Operations: None Procedures: None Summary of Care Provided: Per HPI: The patient is a 73 year old M with a PMH as below presenting with an acute onset flank pain on the right that radiated to his chest. He became SOB. No lightheadedness or dizziness. No arm or jaw pain, no diaphoresis. He pain improved with nitroglycerin and resolved by the time he was admitted. He has smoked a significant amount in the past, but has quit. Denies any cardiac history. In the ER troponins were negative and EKG was unremarkable. He has leukocytosis which appears chronic but was afebrile, D-Dimer was normal for age, and his troponin has remained negative x3. He is having intermittent burning pain. Hospital Course: 1. Chest Pain/HTN/Flank Pain - He presented with flank pain on the right that then had progressed across his chest which is why he presented to the ER. He was admitted for chest pain rule out after CT scan of his abdomen and pelvis was negative. During his admission he was found to have 2 EKGs were both normal sinus without any ischemic changes, and 3 troponins were negative. On the morning of his discharge we discussed the fact that he had had a normal stress test in August at [facility], and currently he was not having any chest pain. He did not want to stay for a stress test on Tuesday since he was going to be seeing a sales support associate on Tuesday where his could be having carotid ultrasound. He was discharged on an aspirin and his ASCVD risk was obtained at around 34% mostly due to his age. He was discharged on a statin as well. 2. His other medical diagnoses were evaluated and his home medications were continued were appropriate. - Physical Exam Vital Signs Temp Pulse Resp BP Pulse Ox 98.9 F 89 18 171/86 H 97 06/25/18 09:28 06/25/18 09:28 06/25/18 09:28 06/25/18 09:28 06/25/18 09:28 Oxygen Delivery Method Room Air Weight: 197 lb 5.019 oz Body Mass Index (BMI) 31.8 Intake and Output for Last 24 Hours Intake Total 550 / 550 890 / 890 Balance 550 / 550 890 / 890 Laboratory Tests Past 24 Hrs WBC RBC Hgb Hct MCV MCH MCHC Discharge Activity: No Restrictions Call your doctor if you observe: Shortness of breath, Dizziness, Chest pain, Increased palpitations (irregular heartbeat) Home Medications: Medications to take at Discharge Amlodipine [Norvasc] 10 mg PO DAILY 01/27/14 Metoprolol(XL)Succ [Toprol Xl (Beta Vivien)] 100 mg PO QHS 01/27/14 Vitamin B Complex 1 each PO DAILY 01/27/14 Bimatoprost 0.01% [Lumigan 0.01%] 1 drop EACH EYE QHS 07/28/16 Timolol Maleate [Timoptic-XE 0.5%] 1 drop EACH EYE DAILY 07/28/16 Losartan Potassium 50 mg PO BID 05/07/17 Pantoprazole Sodium [Protonix] 40 mg PO DAILY 06/13/17 Nitroglycerin [Nitrostat] 0.4 mg SUBLINGUAL Q5M PRN 03/05/18 Oxycodone HCl/Acetaminophen [Percocet 10-325 mg Tablet] 1 tablet PO Q8H PRN PRN 03/05/18 Cyanocobalamin (Vitamin B-12) [B-12] 1,000 mcg SL DAILY 06/24/18 Tamsulosin HCl [Flomax] 0.4 mg PO QHS 06/24/18 Aspirin [Aspirin, Baby] 81 mg PO DAILY@0800 #30 tab.chew 06/25/18 Atorvastatin Calcium [Lipitor] 40 mg PO QHS #30 tab 06/25/18 Following Prescrptions Were Given to Patient: Aspirin [Aspirin, Baby] 81 mg PO DAILY@0800 #30 tab.chew Atorvastatin Calcium [Lipitor] 40 mg PO QHS #30 tab Primary Care Physician: Chaitanya Lebron Jr., MD [Primary Care Provider] - Please follow up with your Primary Care Physician in: In 3- 5 days Disposition: Home Patient Condition:: Good Medical Necessity - Tobacco Use Smoking Status: Former smoker Tobacco Use: Cigarettes Meaningful Use Info Meaningful Use Diagnoses (Choose all that apply): None applicable Code Visit OBSV E AND M: 83704 Observation care discharge 06/25/18 1208 <Electronically signed by Mihir Harden MD> Date Mihir Harden MD Cosigner Signature (if applicable): Date CC: Chaitanya Lebron Jr., MD; Mihir Harden MD Signed DISCHARGE INSTRUCTION Observed: 06/25/2018 Status: F Source: [place] 11:06 AM [facility] REPOSITORY [facility] Medical Records Department [address] [place] [address] Instructions for Home/Discharge Instructions 06/25/18 1104 MR#: [id number] Acct: [id number] Name: TRI FRANK Jr. Rep #: [id number] : 1945 73 From: Mihir Harden MD PCP: Chaitanya Lebron Jr., MD Status: ADM HARMAN - Discharge Diagnoses Current Active Problems: Current Active and Chronic Problems Glaucoma (Chronic) Chest pain (Acute) You will use the following diet at home:: Cardiac Your food should be the consistency of: Regular Your liquids should be the consistency of: Regular/Thin Discharge Activity: No Restrictions Call your doctor if you observe: Shortness of breath, Dizziness, Chest pain, Increased palpitations (irregular heartbeat) Allergies/Adverse Reactions: Allergies Penicillins Allergy (Verified 06/24/18 09:40) Unknown Sulfa (Sulfonamide Antibiotics) Allergy (Verified 06/24/18 09:40) Unknown morphine Adverse Reaction (Intermediate, Verified 06/24/18 09:40) Shortness of breath lorazepam Adverse Reaction (Verified 06/24/18 09:40) Other blurry vision Medications to take at Discharge Amlodipine [Norvasc] 10 mg PO DAILY 01/27/14 Metoprolol(XL)Succ [Toprol Xl (Beta Vivien)] 100 mg PO QHS 01/27/14 Vitamin B Complex 1 each PO DAILY 01/27/14 Bimatoprost 0.01% [Lumigan 0.01%] 1 drop EACH EYE QHS 07/28/16 Timolol Maleate [Timoptic-XE 0.5%] 1 drop EACH EYE DAILY 07/28/16 Losartan Potassium 50 mg PO BID 05/07/17 Pantoprazole Sodium [Protonix] 40 mg PO DAILY 06/13/17 Nitroglycerin [Nitrostat] 0.4 mg SUBLINGUAL Q5M PRN 03/05/18 Oxycodone HCl/Acetaminophen [Percocet 10-325 mg Tablet] 1 tablet PO Q8H PRN PRN 03/05/18 Cyanocobalamin (Vitamin B-12) [B-12] 1,000 mcg SL DAILY 06/24/18 Tamsulosin HCl [Flomax] 0.4 mg PO QHS 06/24/18 Aspirin [Aspirin, Baby] 81 mg PO DAILY@0800 #30 tab.chew 06/25/18 Atorvastatin Calcium [Lipitor] 40 mg PO QHS #30 tab 06/25/18 The following prescriptions were given: Aspirin [Aspirin, Baby] 81 mg PO DAILY@0800 #30 tab.chew Atorvastatin Calcium [Lipitor] 40 mg PO QHS #30 tab Primary Care Physician: Chaitanya Lebron Jr., MD [Primary Care Provider] - Please follow up with your Primary Care Physician in: In 3- 5 days Test Results: Test results from this visit will be discussed in further detail at your follow-up appointment, if applicable. 06/25/18 1106 <Electronically signed by Mihir Harden MD> Date Mihir Harden MD CC: Chaitanya Lebron Jr., MD URINALYSIS, COMPLETE Collected: 06/25/2018 Status: F Source: [place] 10:15 AM [facility] REPOSITORY Order Comment: Order Date: 06/25/18 How was Urine Obtained? CLEAN CATCH TYPE CODE TESTS RESULT OUT OF RANGE REFERENCE UNITS LAB L400.3000 Yellow COLOR Normal Yellow LAB L400.3050 Clear Normal CLARITY Clear LAB L400.3200 Normal mg/dl Normal GLUCOSE, UR Normal LAB L400.3300 Negative mg/dL Normal BILIRUBIN URINE Negative LAB L400.3400 Negative mg/dl Normal KETONE UR Negative LAB L400.3465 1.002-1.030 Normal SP.GR. DIPSTX 1.015 LAB L400.3550 5.0 - 8.0 pH UR Normal 6.0 LAB L400.3600 Negative mg/dl High PROT 30 DIPSTX LAB L400.3700 Normal mg/dl Normal UROBILI Normal LAB L400.3750 Negative Normal NITRITE UR Negative LAB L400.3780 Negative /ul Normal OCCULT BLOOD-UR Negative LAB L400.3800 Negative /ul LEUK Normal ESTERASE Negative LAB L400.4050 0-5 /hpf WBC 0 Normal SEEN LAB L400.4100 0-5 /hpf 0 Normal RBC-UA SEEN LAB L400.4150 0-5 /hpf SQUAM 0 Normal EPI SEEN LAB L400.4300 None Seen /hpf 0 Normal BACTERIA SEEN LAB L400.4350 <or=2+ /hpf 0 Normal MUCUS, URINE SEEN Performed By: #### L400.0001 #### [facility] [address] [place], [place], [address] BASIC METABOLIC Collected: 06/25/2018 Status: F Source: [place] PROFILE (BMP) 4:45 AM [facility] REPOSITORY TYPE CODE TESTS RESULT OUT OF RANGE REFERENCE UNITS LAB L501.0100 74-106 mg/dL Normal GLU 105 Result Comment: Fasting Glucose result from 100 to 125 mg/dL suggests IMPAIRED HOMEOSTASIS per A.D.A. criteria. Please note revised GLUCOSE reference range effective 2017. LAB L501.1000 7-18 mg/dL Normal BUN 11 LAB L501.1100 0.70-1.30 mg/dL Low CREAT,SERUM 0.56 Result Comment: The validity of the calculated GFR AND GFRAA in patients over 70 years has not been determined. Clinical correlation is essential. LAB L501.1110 >60 mL/min Normal EST GFR 152 Result Comment: Non- GFR Calc LAB L501.1115 >60 mL/min Normal EST GFR - AA 184 Result Comment: GFR Calc LAB L501.1255 ml/min Normal Estimated CRCL 58.48 LAB L501.1300 10-20 RATIO Normal BUN/CRE 19.7 LAB L501.2200 8.5-10 mg/dL Low .1 CA 8.3 LAB L501.5300 136-14 mmol/L Normal 5 NA 141 LAB L501.5600 3.5-5. mmol/L Normal 1 K 4.2 LAB L501.5900 98-107 mmol/L High CL 109 LAB L501.6100 21.0-3 mmol/L Normal 2.0 CO2 25.0 LAB L501.6200 5-15 Normal GAP 7 Performed By: #### L500.2500, L500.4100 #### [facility] [address] [place], [place], [address] LIPID PROFILE Collected: 06/25/2018 Status: F Source: [place] 4:45 AM [facility] REPOSITORY TYPE CODE TESTS RESULT OUT OF RANGE REFERENCE UNITS LAB L501.4900 200 mg/dL Normal CHOL 144 Result Comment: <200 mg/dL Desirable 200-240 mg/dL Borderline >240 mg/dL High Risk LAB L501.5000 mg/dL Normal TRIG 82 Result Comment: The drugs N-Acetylcysteine and Metamizole may falsely depress this assay. Serum Triglycerides Reference Interval Normal <150 mg/dL Borderline high 150 - 199 mg/dL High 200 - 499 mg/dL Very High > or = 500 mg/dL LAB L501.6400 mg/dL Low HDL 36 Result Comment: The drugs N-Acetylcysteine and Metamizole may falsely depress this assay. Reference Range HDL <40 mg/dL Low HDL Cholesterol HDL >or= 60 mg/dL High HDL Cholesterol LAB L501.6500 0-130 mg/dL Normal LDL 92 LAB L501.6600 5-40 mg/dL Normal VLDL 16 Performed By: #### L500.2500, L500.4100 #### [facility] [address] [place], [place], [address] CBC W/DIFF, AUTOMATED Collected: 06/25/2018 Status: F Source: [place] 4:45 AM [facility] REPOSITORY TYPE CODE TESTS RESULT OUT OF RANGE REFERENCE UNITS LAB L100.1000 4.4-11.0 K/mm3 High WBC 11.3 LAB L100.1200 4.6-6.2 M/mm3 Normal RBC 4.62 LAB L100.1300 13.0-16.5 g/dl Normal HGB 14.9 LAB L100.1400 40-54 % Normal HCT 43.4 LAB L100.1500 80-94 fL Normal MCV 93.9 LAB L100.1600 27.0-32.0 pg High MCH 32.3 LAB L100.1700 32-36 g/gl Normal MCHC 34.3 LAB L100.1810 11.6-14.6 % Normal RDW CV 14.0 LAB L100.1820 35.1-43.9 fl High RDW SD 46.3 LAB L100.1900 150-450 K/mm3 Normal PLT 266 LAB L100.2000 6.2-12.0 fl Normal MPV 10.9 LAB L100.2100 47-70 % High NEUT% 76.4 LAB L100.2200 19-41 % Low LY% 15.3 LAB L100.2300 0-10 % Normal MONO% 6.5 LAB L100.2400 0-5 % Normal EO% 0.2 LAB L100.2500 0-1 % Normal BASO% 0.4 LAB L100.2550 0.0-0.9 % High IM GRAN % 1.200 Result Comment: IG% - Immature Granulocytes (promyelocytes, myelocytes and metamyelocytes) > 1% indicates that a LEFT SHIFT is Present. LAB L100.2620 2.0-7.7 X10 3/uL High Absolute Neut 8.6 LAB L100.2720 0.83-4.51 X10 3/ul Normal Absolute Lymph 1.73 Performed By: #### L100.0100 #### [facility] [address] [facility] [place], [address] HISTORY AND PHYSICAL Observed: 06/24/2018 Status: F Source: [place] EXAM 7:27 PM [facility] REPOSITORY [facility] Medical Records Department [address] [place] [address] History and Physical 06/24/181916 MR#: [id number] Acct: [id number] Name: TRI FRANK Jr. Rep #: [id number] : 1945 73 From: Mihir Harden MD PCP: Chaitanya Lebron Jr., MD Status: ADM HARMAN Y Location: [place] [address] Problem List (1) Glaucoma Status: Chronic (2) Chest pain Status: Acute (3) Gastroesophageal reflux disease Status: Chronic (4) COPD (chronic obstructive pulmonary disease) Status: Chronic Comment: mild (5) HTN (hypertension) Status: Chronic History of Present Illness Date of Admission: 06/24/18 Chief Complaint: chest pain The patient is a 73 year old M with a PMH as below presenting with an acute onset flank pain on the right that radiated to his chest. He became SOB. No lightheadedness or dizziness. No arm or jaw pain, no diaphoresis. He pain improved with nitroglycerin and resolved by the time he was admitted. He has smoked a significant amount in the past, but has quit. Denies any cardiac history. In the ER troponins were negative and EKG was unremarkable. He has leukocytosis which appears chronic but was afebrile, D-Dimer was normal for age, and his troponin has remained negative x3. He is having intermittent burning pain. Past Medical History Past Medical History (Chronic Problems): Chronic Problems Glaucoma (Chronic) Tobacco user (Chronic) Gastroesophageal reflux disease (Chronic) COPD (chronic obstructive pulmonary disease) (Chronic) mild Hx pulmonary embolism (Chronic) HTN (hypertension) (Chronic) Prostate cancer (Chronic) Allergies Penicillins Allergy (Verified 06/24/18 09:40) Unknown Sulfa (Sulfonamide Antibiotics) Allergy (Verified 06/24/18 09:40) Unknown morphine Adverse Reaction (Intermediate, Verified 06/24/18 09:40) Shortness of breath lorazepam Adverse Reaction (Verified 06/24/18 09:40) Other blurry vision Home Medications: Ambulatory Orders Medication Instructions Recorded Amlodipine [Norvasc] 10 mg PO DAILY 01/27/14 Metoprolol(XL)Succ [Toprol Xl 100 mg PO QHS 01/27/14 Surgical History: tonsillectomy Psychiatric History: No pertinent psych hx, - - He has no hx of anxiety but his BP goes up with any stressor. He is afraid to go home even though the work up in the ER is negative. When the EMT's picked him up at his house his BP was over 200 he says. It was 173/91 with a HR of 103 when he initially presented to the ER. Smoking Status: Former smoker Tobacco Use: Cigarettes Alcohol: None Drugs: None - *Family History Maternal History Items: No pertinent history Paternal History Items: Heart Disease Review of Systems Constitutional: Denies: Chills, Fever, Weight Change HEENT: Denies: Head Aches, Sinus Congestion, Sinus Drainage Cardiovascular: Reports: Chest Pain. Denies: Palpitations Respiratory: Denies: Cough, Shortness of breath at rest, Sputum production Gastrointestinal: Denies: Abdominal Pain, Nausea, Vomiting Genitourinary: Denies: Dysuria Musculoskeletal: Denies: Joint Pain, Joint Tenderness Skin: Denies: Rash, Wounds Neurological: Denies: Numbness, Tingling, Focal weakness Psychiatric: Denies: Anxiety, Depression Hematologic/ Lymphatic: Denies: Easy Bruising, Easy Bleeding VTE Information - Inpt Only VTE Present on Admission: No Patient Problems: Active and Suspected Problems Chest pain (Acute) - Physical Exam General: Alert, Oriented x3, Cooperative, No apparent distress HEENT: Atraumatic, PERRLA, EOMI, Normocephalic Oral: Moist Mucosa Neck: Supple, No JVD Lungs: Clear to auscultation, Normal air movement, No rhonchi, No wheeze, No rales Cardiovascular: Regular rate, Regular Rhythm, Normal S1, Normal S2, No murmurs Abdomen: Soft, Non Tender, Non-Distended, No Hepato-splenomegaly Extremities: No edema, Capillary Refill Less than 3 Seconds Skin: No rashes, No breakdown Neurological: Neuro grossly intact, Sensory exam intact to light touch and pain Psych/Mental Status: Normal Affect, Appropriate Vital Signs Temp Pulse Resp BP Pulse Ox 98.4 F 68 18 154/72 H 96 06/24/18 17:25 06/24/18 17:25 06/24/18 17:25 06/24/18 17:25 06/24/18 17:25 Oxygen Delivery Method Room Air Weight: 197 lb 5.019 oz Body Mass Index (BMI) 31.8 Intake and Output for Last 24 Hours Intake Total 550 / 550 Balance 550 / 550 Laboratory Tests Past 24 Hrs WBC RBC Hgb Hct MCV MCH MCHC Assessment/Plan All Active Problems Chest pain (Acute) Near syncope (Acute) Hyperglycemia (Acute) 1. Chest pain/HTN/flank pain - Will risk stratify with lipid panel for possible statin use - He will be started on an aspirin - Possible stress test on tuesday - GI cocktail to see if that helps with his burning chest pain - CT abd/pelvis was negative - c/w home BP meds 2. GERD - GI cocktail for his burning pain - c/w his PPI 3. Glaucoma - stable - c/w home eye drops 4. BPH - stable - c/w flomax DVT: Heparin diet: Cardiac Code Visit OBSV E AND M: 02108 Initial observation care L3 06/24/181926 <Electronically signed by Mihir Harden MD> Date Mihir Harden MD Cosigner Signature: Date (if applicable) CC: Chaitanya Lebron Jr., MD; Mihir Harden MD Signed TROPONIN-I Collected: 06/24/2018 Status: F Source: [place] 5:25 PM [facility] REPOSITORY Order Comment: 'TROP' Serial specimen #1, #2 or #3: 3 TYPE CODE TESTS RESULT OUT OF RANGE REFERENCE UNITS LAB L501.4010 <0.045 ng/mL Normal < 0.015 TROPONIN-I Result Comment: TROPONIN-I EXPECTED VALUES <0.045 Negative 0.045 - 0.590 Consistent with Cardiac Damage > OR = 0.600 Critical Value Not every elevated troponin is indicative of TN. These values should be used with clinical judgement in examining the patient's clinical picture for diagnosis. To establish a diagnosis of TN versus myocardial injury, there must be a demonstrated rise and/or fall in the troponin values, in addition to ischemic symptoms, EKG changes, new regional wall motion abnormality, and/or angiographical evidence. PLEASE NOTE: REFERENCE RANGES EDITED 17 Performed By: #### L501.4010 #### [facility] [place], [address] TROPONIN-I Collected: 06/24/2018 Status: F Source: [place] 2:27 PM [facility] REPOSITORY Order Comment: 'TROP' Serial specimen #1, #2 or #3: 2 TYPE CODE TESTS RESULT OUT OF RANGE REFERENCE UNITS LAB L501.4010 <0.045 ng/mL Normal < 0.015 TROPONIN-I Result Comment: TROPONIN-I EXPECTED VALUES <0.045 Negative 0.045 - 0.590 Consistent with Cardiac Damage > OR = 0.600 Critical Value Not every elevated troponin is indicative of TN. These values should be used with clinical judgement in examining the patient's clinical picture for diagnosis. To establish a diagnosis of TN versus myocardial injury, there must be a demonstrated rise and/or fall in the troponin values, in addition to ischemic symptoms, EKG changes, new regional wall motion abnormality, and/or angiographical evidence. PLEASE NOTE: REFERENCE RANGES EDITED 17 Performed By: #### L501.4010 #### [facility] [address] [place], [address] EMERGENCY DEPARTMENT Observed: 06/24/2018 Status: F Source: [place] SUMMARY 11:13 AM [facility] REPOSITORY [facility] Medical Records Department 176 [place] [address] Emergency Department Summary 06/24/18 1110 MR#: [id number] Acct: [id number] Name: TRI FRANK Jr. Rep #: [id number] : 1945 73 From: Sonia Marion DO PCP: Chaitanya Lebron Jr., MD Status: REG ER - ER Visit Summary Date of Service: 06/24/18 Chief Complaint: [Chest pain] History of Present Illness: The patient is a 73 M presents with chest pain that started this morning about an hour ago. Patient states that he was driving when he had sudden onset of severe pain in his right flank that radiated up his back and into his right shoulder. Patient did not develop diffuse chest discomfort that he described as tightness and a dull ache. Patient felt somewhat short of breath. Night any nausea or vomiting. Patient called EMS who gave him an aspirin and a nitro which resolved his pain however he states the pain was starting to go away before that. Patient is never had discomfort like that before. Patient does have a history of COPD, GERD, hypertension, prostate cancer and remote history of pulmonary embolism. Patient is not currently anticoagulated. Patient's last heart catheterization was in 1999 but he has had a stress test since he cannot remember how long ago. Patient himself does not have any cardiac history.] Physical Examination: [HEENT-PERRLA, EOMI. Cranial nerves II through XII grossly intact. TMs clear. Mucous membranes moist. No adenopathy. Cardiovascular-regular rate and rhythm without murmur or ectopy Lungs-clear to auscultation, chest wall stable without crepitus or subcu emphysema Abdomen-normoactive bowel sounds, soft, nontender, no rebound or rigidity, no peritoneal signs. Extremities-intact 4, normal range of motion, normal pulses, atraumatic] Test Results: [EKG obtained on arrival showed a sinus rhythm with a ventricular rate of 78 bpm with no acute ST segment changes. CBC with differential obtained was significant for slightly elevated white blood cell count of 14.6, hemoglobin 16, hematocrit 46, platelets 289. Chemistries unremarkable other than a slightly depressed potassium of 3.2. LFTs were normal. Lipase normal. Urinalysis normal. Troponin was less than 0.015. Chest x-ray showed nothing acute. Flank CT showed nothing acute.] Emergency Department Course and Treatment: [Patient continued describes small amount of discomfort retrosternally. Patient was ordered a sublingual nitroglycerin in the department. Case will be discussed with hospitalist evaluate patient for admission] Treatment Plan: [Admit for further workup of his chest pain.] Disposition: [Admit] Impression: [Chest pain-rule out acute coronary syndrome] This note was generated with Acousticeye dictation software. It may contain incorrect words, spelling, and punctuation that were not noted in review of the chart prior to signing ED Disposition - Plan for ED Patient: Chief Complaint: Chest Other Referrals: Chaitanya Lebron Jr., MD [Primary Care Provider] - What to do if you have Problems For any increased pain, shortness of breath, bleeding, nausea or vomiting, chest pain, or any unexpected problems, contact your Primary Care Provider. Call [facility] ([phone]) or report to the closest Emergency Room. Call 911 if necessary. 06/24/18 1113 <Electronically signed by Sonia Marion DO> Date Sonia Marion DO Cosigner Signature (If Indicated): Date CC: Chaitanya Lebron Jr., MD URINALYSIS, COMPLETE Collected: 06/24/2018 Status: F Source: DUC 10:00 AM [facility] REPOS[facility] Order Comment: Order Date: 06/24/18 How was Urine Obtained? CLEAN CATCH TYPE CODE TESTS RESULT OUT OF RANGE REFERENCE UNITS LAB L400.3000 Yellow COLOR Normal Yellow LAB L400.3050 Clear Normal CLARITY Clear LAB L400.3200 Normal mg/dl Normal GLUCOSE, UR Normal LAB L400.3300 Negative mg/dL Normal BILIRUBIN URINE Negative LAB L400.3400 Negative mg/dl Normal KETONE UR Negative LAB L400.3465 1.002-1.030 Normal SP.GR. DIPSTX 1.010 LAB L400.3550 5.0 - 8.0 pH UR Normal 6.5 LAB L400.3600 Negative mg/dl PROT Normal DIPSTX Negative LAB L400.3700 Normal mg/dl Normal UROBILI Normal LAB L400.3750 Negative Normal NITRITE UR Negative LAB L400.3780 Negative /ul Normal OCCULT BLOOD-UR Negative LAB L400.3800 Negative /ul LEUK Normal ESTERASE Negative LAB L400.4050 0-5 /hpf WBC 0 Normal SEEN LAB L400.4100 0-5 /hpf 0 Normal RBC-UA SEEN LAB L400.4150 0-5 /hpf SQUAM Normal EPI 0-5 SEEN LAB L400.4300 None Seen /hpf 0 Normal BACTERIA SEEN LAB L400.4350 <or=2+ /hpf 0 Normal MUCUS, URINE SEEN Performed By: #### L400.0001 #### [facility] [address] [place], [address] CHEST 1 VIEW Observed: 06/24/2018 Status: F Source: DUC (PORTABLE) 9:53 AM [facility] REPOSITORY [facility] Imaging Services [address] [place] [address] Chest 1 View (Portable) MR#: [id number] Acct: [id number] Name: TRI FRANK Jr. Rep #: [id number] : 1945 M 73 From: Orlando Parker DO PCP: Chaitanya Lebron Jr., MD Status: REG ER Study: Chest 1 View (Portable) Date of Exam: 06/24/18 Exam# [id number] Ordering Dr: Sonia Marion DO STUDY: X-RAY CHEST REASON FOR EXAM: Male, 73 years old. Chest and back pain. TECHNIQUE: Single AP portable view of the chest. COMPARISON: 31 July 2014 FINDINGS: The lungs are clear and expanded. There is no demonstrated pleural abnormality. Normal size heart. Normal mediastinum and elvin. Normal visualized pulmonary arteries. There is atherosclerotic calcification of the aortic arch with tortuosity. Normal visualized thoracic spine. Normal visualized ribs, clavicles, and shoulders. There is no demonstrated abnormality of the visualized soft tissue structures of the upper abdomen. RAD/Chest 1 View (Portable) IMPRESSION: No evidence of acute cardiopulmonary process. Electronically Signed: Orlando Parker DO at 10:34 EST , Service support , CC: Chaitanya Lebron Jr., MD; Sonia Marion DO Information Systems Planner: Signed ABDOMEN/PELVIS WITHOUT Observed: 06/24/2018 Status: F Source: [place] CONT 9:53 AM [facility] REPOSITORY [facility] Imaging Services [address] [place] [address] Abdomen/Pelvis without Cont MR#: [id number] Acct: [id number] Name: TRI FRANK Jr. Rep #: [id number] : 1945 M 73 From: Orlando Parker DO PCP: Chaitanya Lebron Jr., MD Status: REG ER Study: Abdomen/Pelvis without Cont Date of Exam: 06/24/18 Exam# [id number] Ordering Dr: Sonia Marion DO STUDY: CT ABDOMEN AND PELVIS WITHOUT CONTRAST REASON FOR EXAM: Male, 73 years old. RT SIDED CP, RT FLANK PAIN, HX-KS, GERD, COPD, EMPHYSEMA, HTN, COPD, EMPHYSEMA, PROSTATE CA-FIDUCIALS FOR RAD TX RADIATION DOSAGE (If Supplied By Facility): CTDIvol = ( 20.19 ) mGy, DLP = ( 963.32 ) mGycm TECHNIQUE: Transaxial images were obtained from the dome of the diaphragm to the symphysis pubis without oral contrast, and without intravenous contrast. Sagittal and coronal images were reconstructed. Individualized dose optimization techniques were used for this CT. COMPARISON: None. FINDINGS: Posterior basilar atelectatic changes with granulomatous change the right lower lung. The visualized portions of the heart are within normal limits. Normal liver. Normal gallbladder and extrahepatic biliary system. Normal spleen. Normal pancreas. Normal bilateral adrenal glands. Hypodensity within the right lateral cortex of the right kidney consistent with cortical cyst is present measuring 1.7 cm. Exophytic left hypodense renal cyst measuring 3 cm in diameter is present with simple Hounsfield units. Normal visualized stomach. Normal small intestine. Normal colon. The appendix is visualized and appears normal. There is diffuse atherosclerotic calcification of the abdominal aorta, without a demonstrated aneurysm. Normal inferior vena cava. Normal retroperitoneum. Normal urinary bladder. Surgical clips are noted within the prostate. Normal abdominal wall. Normal osseous structures. CT/Abdomen/Pelvis without Cont IMPRESSION: Senescent changes and renal cysts as above with no evidence of acute intra-abdominal process or focal inflammation. Electronically Signed: Orlando Parker DO at 10:44 EST , Service support , CC: Chaitanya Lebron Jr., MD; Sonia Marion DO Information Systems Planner: Signed CBC W/DIFF, AUTOMATED Collected: 06/24/2018 Status: C Source: [place]UC 9:50 AM [facility] REPOS[facility] TYPE CODE TESTS RESULT OUT OF RANGE REFERENCE UNITS LAB L100.1000 4.4-11.0 K/mm3 High WBC 14.6 LAB L100.1200 4.6-6.2 M/mm3 Normal RBC 4.96 LAB L100.1300 13.0-16.5 g/dl Normal HGB 15.9 LAB L100.1400 40-54 % Normal HCT 46.1 LAB L100.1500 80-94 fL Normal MCV 92.9 LAB L100.1600 27.0-32.0 pg High MCH 32.1 LAB L100.1700 32-36 g/gl Normal MCHC 34.5 LAB L100.1810 11.6-14.6 % Normal RDW CV 13.8 LAB L100.1820 35.1-43.9 fl High RDW SD 45.8 LAB L100.1900 150-450 K/mm3 Normal PLT 289 LAB L100.2000 6.2-12.0 fl Normal MPV 10.5 LAB L100.2100 47-70 % High NEUT% 80.5 LAB L100.2200 19-41 % Low LY% 12.7 LAB L100.2300 0-10 % Normal MONO% 4.2 LAB L100.2400 0-5 % Normal EO% 0.2 LAB L100.2500 0-1 % Normal BASO% 0.3 LAB L100.2550 0.0-0.9 % High IM GRAN % 2.100 Result Comment: IG% - Immature Granulocytes (promyelocytes, myelocytes and metamyelocytes) > 1% indicates that a LEFT SHIFT is Present. LAB L100.2620 2.0-7.7 X10 3/uL High Absolute Neut 11.8 LAB L100.2720 0.83-4.51 X10 3/ul Normal Absolute Lymph 1.86 LAB L100.9900 Normal PATH REV Reviewed Result Comment: Neutrophilic leukocytosis with left shift. Clinical correlation necessary. Saravanan Healy M.D. 06/27/18 AMENDED REPORT 06/27/18 1443 PATH REV previously reported as: November martha Performed By: #### L100.0100 #### [facility] [address] [place], [address] D-DIMER QUANTITATIVE Collected: 06/24/2018 Status: F Source: [facility] (DVT/PE) 9:50 AM [facility]POS[facility] Order Comment: CRITICAL VALUE VERIFIED. CALLED TO TABITHA 06/24/18 Kevin Mittal. RESULTS READ BACK BY RENUKA . TYPE CODE TESTS RESULT OUT OF RANGE REFERENCE UNITS LAB L300.8000 0.27-0.49 FEU/ug/m High alert D-DIMER 0.56 QUANT Result Comment: D-Dimer ELEVATED (>0.49): Additional studies and clinical assessments are indicated to conclude diagnosis of: Deep Vein Thrombosis (DVT) or Pulmonary Embolism (PE) Performed By: #### L300.8000 #### [facility] [place], [address] COMPREHENSIVE METABOLIC Collected: 06/24/2018 Status: F Source: DUC [facility] 9:50 AM [facility]POS[facility] TYPE CODE TESTS RESULT OUT OF RANGE REFERENCE UNITS LAB L501.0100 74-106 mg/dL High GLU 118 Result Comment: Fasting Glucose result from 100 to 125 mg/dL suggests IMPAIRED HOMEOSTASIS per A.D.A. criteria. Please note revised GLUCOSE reference range effective 2017. LAB L501.1000 7-18 mg/dL Normal BUN 13 LAB L501.1100 0.70-1.30 mg/dL Normal CREAT,SERUM 0.74 Result Comment: The validity of the calculated GFR AND GFRAA in patients over 70 years has not been determined. Clinical correlation is essential. LAB L501.1110 >60 mL/min Normal EST GFR 110 Result Comment: Non- GFR Calc LAB L501.1115 >60 mL/min Normal EST GFR - AA 133 Result Comment: GFR Calc LAB L501.1255 ml/min Normal Estimated CRCL 60.59 LAB L501.1300 10-20 RATIO Normal BUN/CRE 17.6 LAB L501.1500 6.4-8. g/dL Normal 2 T PROT 7.8 LAB L501.1800 3.2-5. g/dL Normal 0 ALB 3.6 LAB L501.1950 2.2-4. g/dL Normal 2 GLOB 4.2 LAB L501.2000 0.9-2. RATIO Normal 4 A/G 0.9 LAB L501.2200 8.5-10 mg/dL Low .1 CA 8.4 LAB L501.4100 15-37 U/L Low AST 12 LAB L501.4305 45-117 U/L Normal ALK P 73 LAB L501.4405 16-61 U/L Normal ALT 31 LAB L501.4600 0.20-1 mg/dL Normal .00 T BILI 0.80 LAB L501.5300 136-14 mmol/L Normal 5 NA 138 LAB L501.5600 3.5-5. mmol/L Low 1 K 3.2 LAB L501.5900 98-107 mmol/L Normal CL 105 LAB L501.6100 21.0-3 mmol/L Normal 2.0 CO2 24.0 LAB L501.6200 5-15 Normal GAP 9 Performed By: #### L500.4050, L501.2450, L501.4010 #### [facility] [address] [place], [address] LIPASE Collected: 06/24/2018 Status: F Source: [place] 9:50 AM [facility] TYPE CODE TESTS RESULT OUT OF RANGE REFERENCE UNITS LAB L501.2450 73-393 U/L Normal LIPASE 152 Performed By: #### L500.4050, L501.2450, L501.4010 #### [facility] [address] [place], [place], [address] TROPONIN-I Collected: 06/24/2018 Status: F Source: [place] 9:50 AM [facility] TYPE CODE TESTS RESULT OUT OF RANGE REFERENCE UNITS LAB L501.4010 <0.045 ng/mL Normal < 0.015 TROPONIN-I Result Comment: TROPONIN-I EXPECTED VALUES <0.045 Negative 0.045 - 0.590 Consistent with Cardiac Damage > OR = 0.600 Critical Value Not every elevated troponin is indicative of TN. These values should be used with clinical judgement in examining the patient's clinical picture for diagnosis. To establish a diagnosis of TN versus myocardial injury, there must be a demonstrated rise and/or fall in the troponin values, in addition to ischemic symptoms, EKG changes, new regional wall motion abnormality, and/or angiographical evidence. PLEASE NOTE: REFERENCE RANGES EDITED 17 Performed By: #### L500.4050, L501.2450, L501.4010 #### [facility] [address] [place], [place], [address] HEMOGLOBIN A1C Collected: 06/24/2018 Status: F Source: [place] 9:50 AM [facility] TYPE CODE TESTS RESULT OUT OF RANGE REFERENCE UNITS LAB L501.9985 4.2-6.3 % Normal HGB A1C 5.9 Performed By: #### L501.9985 #### [facility] [address] [place], [address] CBC Collected: 04/03/2018 Status: F Source: [facility] 9:36 AM [facility] REPOSITORY TYPE CODE TESTS RESULT OUT OF REFERENCE UNITS RANGE LAB WBC(LOINC) 4.60-10.80 10 3/mcL High WBC 12.30 LAB RBCCT(LOINC 4.04-6.13 10 6/mcL ) RBC 5.06 LAB HGB(LOINC) 14.0-18.0 G/dL Hgb 16.5 LAB HCT(LOINC) 42.0-52.0 % Hct 47.5 LAB MCV(LOINC) 80.0-94.0 fL MCV 93.8 LAB MCH(LOINC) 27.0-31.2 pg High MCH 32.6 LAB MCHC(LOINC) 31.8-35.4 G/dL MCHC 34.8 LAB RDW(LOINC) 11.5-14.5 % RDW 13.3 LAB PLT(LOINC) 130-400 10 3/mcL Platelet 284 LAB MPV(LOINC) 7.4-10.4 fL MPV 9.6 Performed By: #### CBC, ANEU, ADIFF #### [facility] [address] [address] .AUTO DIFF Collected: 04/03/2018 Status: F Source: [facility] 9:36 AM [facility] REPOSITORY TYPE CODE TESTS RESULT OUT OF REFERENCE UNITS RANGE LAB SARITHA(LOINC) 37.0-80.0 % Neutrophil % 74.6 LAB LYM(LOINC) 10.0-50.0 % Lymphocyte % 17.1 LAB MON(LOINC) 1.7-13.0 % Monocyte % 6.9 LAB EO(LOINC) 0.0-7.0 % Eosinophil % 1.0 LAB BAS(LOINC) 0.0-2.5 % Basophil % 0.4 LAB ABLYM(LOIN 0.77-3.85 10 3/mcL C) Lymphocyte, 2.10 Absolute LAB DAMON(LOINC 0.15-1.00 10 3/mcL ) Monocyte, 0.80 Absolute LAB AEOS(LOINC 0.00-0.40 10 3/mcL ) Eosinophil, 0.10 Absolute LAB ABAS(LOINC 0.00-0.19 10 3/mcL ) Basophil, 0.00 Absolute Performed By: #### CBC, ANEU, ADIFF #### [facility] [place] [address] [place], [place] [address] .NEUABS Collected: 04/03/2018 Status: F Source: [facility] 9:36 AM [facility] TYPE CODE TESTS RESULT OUT OF REFERENCE UNITS RANGE LAB ANEU(LOINC) 2.85-6.16 10 3/mcL High Neutrophil, 9.20 Absolute Performed By: #### CBC, ANEU, ADIFF #### [facility] [address] [place], [place] [address] 12 LEAD ELECTROCARDIOGRAM Observed: 03/07/2018 Status: F Source: [place] 12:48 PM [facility] REPOSITORY [facility] Cardiovascular Services [address] [place] [address] 12 Lead EKG 03/05/18 0457 MR#: [id number] Acct: [id number] Name: TRI FRANK Rep #: [id number] : 1945 73 From: Reji Monson MD Attending Dr: Status: DEP ER Ordering Dr: Eder Smith MD Date: 03/05/18 Location: ED Sex: M C Admitted: Test Reason : DIARRHEA Blood Pressure : / mmHG Vent. Rate : 065 BPM Atrial Rate : 065 BPM P-R Int : 214 ms QRS Dur : 086 ms QT Int : 400 ms P-R-T Axes : 053 032 062 degrees QTc Int : 416 ms Sinus rhythm with 1st degree A-V block Otherwise normal ECG Confirmed by REJI MONSON MD ([id number]), editor greeting card MAGALY LYNN ([id number]) on 03/07/2018 12:48:06 PM Referred By: ELOY Confirmed By:REJI MONSON MD 03/07/18 1248 Date Reji Monson MD CC: Chaitanya Lebron Jr., MD; Eder Smith MD Signed EMERGENCY DEPARTMENT Observed: 03/07/2018 Status: F Source: [place] SUMMARY 11:06 AM [facility] REPOSITORY [facility] Medical Records Department [address] [place] [address] Emergency Department Summary 03/07/18 1104 MR#: [id number] Acct: [id number] Name: TRI FRANK Jr. Rep #: [id number] : 1945 73 From: Debra Marquez MD PCP: Chaitanya Lebron Jr., MD Status: PRE ER - ER Visit Summary Date of Service: 03/07/18 Chief Complaint: Skin tear right upper extremity History of Present Illness: The patient is a 73 M presenting with skin tear right upper extremity. Patient was getting off the elevator and the door hit him on the right arm. He sustained a skin tear to the right forearm. He does not recall his last tetanus immunization. He is not on anticoagulants. No other injuries. Physical Examination: Vitals are stable. Patient is afebrile. Alert no acute distress. HEENT exam is unremarkable. Lungs are clear and equal bilaterally. Heart is regular rate and rhythm. Extremities 3 cm skin tear to right forearm, AFROM, normal distal pulse. Skin is warm and dry. No focal neurologic deficit. Remainder of exam is unremarkable. Emergency Department Course and Treatment: Patient is given tetanus IM. Wound was cleaned and dressed. Advised wound care instructions. Advised to follow with primary care physician. Advised return to ED for worsening complaints. Disposition: Discharge home Impression: Skin tear right upper extremity This note was generated with Acousticeye dictation software. It may contain incorrect words, spelling, and punctuation that were not noted in review of the chart prior to signing ED Disposition - Plan for ED Patient: Chief Complaint: Wound Instructions: ED Avulsion Dermal Referrals: Chaitanya Lebron Jr., MD [Primary Care Provider] - What to do if you have Problems For any increased pain, shortness of breath, bleeding, nausea or vomiting, chest pain, or any unexpected problems, contact your Primary Care Provider. Call [facility] ([phone]) or report to the closest Emergency Room. Call 911 if necessary. 03/07/18 1106 <Electronically signed by Debra Marquez MD> Date Debra Marquez MD Cosigner Signature (If Indicated): Date CC: Chaitanya Lebron Jr., MD DISCHARGE INSTRUCTION Observed: 03/07/2018 Status: F Source: DUC 11:04 AM [facility] Medical Records Department [address] [place] [address] Discharge Instruction 03/07/18 110 MR#: [id number] Acct: [id number] Name: ZACTRI Geeta Gandhi Rep #: [id number] : 1945 73 From: Debra Marquez MD PCP: Chaitanya Lebron Jr., MD Status: PRE ER ED Disposition - Plan for ED Patient: Chief Complaint: Wound Instructions: ED Avulsion Dermal Referrals: Chaitanya Lebron Jr., MD [Primary Care Provider] - What to do if you have Problems For any increased pain, shortness of breath, bleeding, nausea or vomiting, chest pain, or any unexpected problems, contact your Primary Care Provider. Call [facility] ([phone]) or report to the closest Emergency Room. Call 911 if necessary. 03/07/18 1104 <Electronically signed by Debra Marquez MD> Date Debra Marquez MD Cosigner Signature (If Indicated): Date CC: Chaitanya Lebron Jr., MD EMERGENCY DEPARTMENT Observed: 03/05/2018 Status: F Source: DUC SUMMARY 10:34 PM [facility] Medical Records Department [address] [facility] [place] [place] [address] Emergency Department Summary 03/05/18 0633 MR#: [id number] Acct: [id number] Name: TRI FRANK Jr. Rep #: [id number] : 1945 73 From: Eder Smith MD PCP: Chaitanya Lebron Jr., MD Status: DEP ER - ER Visit Summary Date of Service: 03/05/18 Chief Complaint: Epigastric abdominal pain History of Present Illness: The patient is a 73 M with 3-day history of epigastric abdominal pain with loose stools. Denies any obvious melena no vomiting or any hematemesis. No fever. No drastic weight loss. He has had 4-5 episodes per day for the last 3 days of loose stools. No history of infectious diarrhea. No recent antibiotic use. States epigastric pain is sharp at times. Denies any fever. No prior abdominal surgeries. Physical Examination: Older male no acute distress. Vital signs are stable afebrile. Initial blood pressure 120s over 67. He does not look septic or toxic. H EENT exam unremarkable. Moist wheeze membranes. Neck nontender no lymphadenopathy. Lungs clear to auscultation bilaterally. Heart regular rhythm no murmur. Abdomen is soft nondistended normal bowel sounds no peritoneal signs. No hernias no masses no organomegaly. He is tender in epigastric region only. No Dupont's or McBurney's point tenderness. No pulsatile mass. Ventral hernia that easily reduces on tone. No signs of obstruction, incarceration or strangulation. He is moving all 4 extremities. Neurovascular intact. Back exam nontender. Neurologic exam normal. Test Results: CBC is elevated 20,700. Normal H AND H and bands. Chemistries normal. Normal gap and creatinine. Liver enzymes are normal other than total bilirubin slightly elevated at 1.4. Lipase is normal as is the troponin. EKG is a sinus rhythm rate of 65 with a first-degree AV block otherwise unchanged from prior EKG from May of last year. CT abdomen pelvis with IV contrast only shows enteritis of the distal ileum. Also prostate gland radiation implant seeds. Otherwise unremarkable. Read by the radiologist reviewed by me. Emergency Department Course and Treatment: Patient is currently resting comfortably. He has received IV Protonix. His abdominal exam is not significantly changed. Due to the white count he will undergo a CT abdomen and pelvis to evaluate him for epigastric abdominal pain. Treatment Plan: Repeat exams at both 05:17 and 0700 patient is doing well. Abdomen is benign. He and I discussed all his tests and results. He is comfortable being discharged home. We will continue his Protonix at home. Follow-up his primary care physician. Disposition: Discharge Impression: Acute epigastric abdominal pain of uncertain etiology Leukocytosis This note was generated with Acousticeye dictation software. It may contain incorrect words, spelling, and punctuation that were not noted in review of the chart prior to signing ED Disposition - Plan for ED Patient: Chief Complaint: Diarrhea Referrals: Chaitanya Lebron Jr., MD [Primary Care Provider] - What to do if you have Problems For any increased pain, shortness of breath, bleeding, nausea or vomiting, chest pain, or any unexpected problems, contact your Primary Care Provider. Call [facility] ([phone]) or report to the closest Emergency Room. Call 911 if necessary. 03/05/18 223 <Electronically signed by Eder Smith MD> Date Eder Smith MD Cosigner Signature (If Indicated): Date CC: Chaitanya Lebron Jr., MD DISCHARGE INSTRUCTION Observed: 03/05/2018 Status: F Source: [place] 10:34 PM [facility] REPOSITORY [facility] Medical Records Department [address] [place] [address] Discharge Instruction 03/05/18 0703 MR#: [id number] Acct: [id number] Name: TRI FRANK Geeta Gandhi Rep #: [id number] : 1945 73 From: Eder Smith MD PCP: Chaitanya Lebron Jr., MD Status: DEP ER ED Disposition - Plan for ED Patient: Disposition: Home or Assisted Living Chief Complaint: Diarrhea Instructions: ED Abdominal Pain Unkn Cause Referrals: Chaitanya Lebron Jr., MD [Primary Care Provider] - 3-5 Days if not improving Additional Instructions: Continue your daily Protonix. Avoid excessive caffeine, alcohol and any spicy foods. Bryant diet and increase slowly. Follow-up your primary care physician if not improving. Return to ER if feeling worse, black or bloody stool, vomiting blood. Or fever. What to do if you have Problems For any increased pain, shortness of breath, bleeding, nausea or vomiting, chest pain, or any unexpected problems, contact your Primary Care Provider. Call [facility] ([phone]) or report to the closest Emergency Room. Call 911 if necessary. 03/05/18 2274 <Electronically signed by Eder Smith MD> Date Eder Smith MD Cosigner Signature (If Indicated): Date CC: Chaitanya Lebron Jr., MD ABDOMEN/PELVIS W IV CONT Observed: 03/05/2018 Status: F Source: DUC ONLY 5:48 AM [facility] REPOSITORY [facility] Imaging Services [address] [place] [address] 22857 Abdomen/Pelvis W IV Cont ONLY MR#: [id number] Acct: [id number] Name: TRI FRANK Geeta Gandhi Rep #: [id number] : 1945 M 73 From: Charbel Mayen PCP: Chaitanya Lebron Jr., MD Status: REG ER Study: Abdomen/Pelvis W IV Cont ONLY Date of Exam: 03/05/18 Exam# [id number] Ordering Dr: Eder Smith MD STUDY: CT ABDOMEN AND PELVIS WITH CONTRAST REASON FOR EXAM: Male, 73 years old. Right upper quadrant pain. Leukocytosis. Diarrhea for 3 days. RADIATION DOSAGE (If Supplied By Facility): CTDIvol = ( 19.11 ) mGy, DLP = ( 1074.03 ) mGycm TECHNIQUE: Transaxial images were obtained from the dome of the diaphragm to the symphysis pubis without oral contrast. 100 ml of Isovue 300 contrast was administered. Sagittal and coronal images were reconstructed. Individualized dose optimization techniques were used for this CT. COMPARISON: June 13, 2017. FINDINGS: Possible bilateral lower lobe subsegmental atelectasis or fibrosis. The visualized portions of the heart are within normal limits. Small hiatal hernia. Normal liver. Normal gallbladder and extrahepatic biliary system. Normal spleen. Normal pancreas. Normal bilateral adrenal glands. Stable bilateral renal cysts largest arising from the midpole left kidney measuring 3.1 cm. Normal visualized stomach. Wall thickening and perienteric inflammatory changes involving the distal ileum including the terminal ileum. Normal colon. The appendix is visualized and appears normal. There is atherosclerotic calcification of the abdominal aorta and common iliac arteries with 1.5 cm dilatation of the proximal left common iliac artery unchanged.. Normal inferior vena cava. Normal retroperitoneum. No intra-abdominal free air. Normal urinary bladder. Prostate gland radiation implant seeds. The prostate gland is not enlarged. Normal abdominal wall. Postkyphoplasty changes T11 present previously. Multilevel degenerative changes of the lumbar spine. No evidence of metastatic disease. CT/Abdomen/Pelvis W IV Cont ONLY IMPRESSION: Enteritis involving the distal ileum. Considerations include inflammatory bowel disease or infection. Small hiatal hernia. Stable bilateral renal cysts. Mild dilatation of left common iliac artery unchanged. Prostate gland radiation implant seeds. Postkyphoplasty changes T11. Electronically Signed: Charbel Mayen MD at 6:46 EDT , Service support , CC: Chaitanya Lebron Jr., MD; Eder Smith MD Information Systems Planner: Signed CBC W/DIFF, AUTOMATED Collected: 03/05/2018 Status: F Source: DUC 4:55 AM [facility] REPOSITORY TYPE CODE TESTS RESULT OUT OF RANGE REFERENCE UNITS LAB L100.1000 4.4-11.0 K/mm3 High WBC 20.7 LAB L100.1200 4.6-6.2 M/mm3 Normal RBC 4.65 LAB L100.1300 13.0-16.5 g/dl Normal HGB 15.5 LAB L100.1400 40-54 % Normal HCT 44.4 LAB L100.1500 80-94 fL High MCV 95.5 LAB L100.1600 27.0-32.0 pg High MCH 33.3 LAB L100.1700 32-36 g/gl Normal MCHC 34.9 LAB L100.1810 11.6-14.6 % Normal RDW CV 13.4 LAB L100.1820 35.1-43.9 fl High RDW SD 45.9 LAB L100.1900 150-450 K/mm3 Normal PLT 257 LAB L100.2000 6.2-12.0 fl Normal MPV 10.9 LAB L100.2100 47-70 % High NEUT% 82.5 LAB L100.2200 19-41 % Low LY% 7.6 LAB L100.2300 0-10 % Normal MONO% 8.2 LAB L100.2400 0-5 % Normal EO% 0.9 LAB L100.2500 0-1 % Normal BASO% 0.2 LAB L100.2550 0.0-0.9 % Normal IM GRAN % 0.600 Result Comment: IG% - Immature Granulocytes (promyelocytes, myelocytes and metamyelocytes) > 1% indicates that a LEFT SHIFT is Present. LAB L100.2620 2.0-7.7 X10 3/uL High Absolute Neut 17.0 LAB L100.2720 0.83-4.51 X10 3/ul Normal Absolute Lymph 1.57 Performed By: #### L100.0100 #### [facility]. [place], [place], [address] BASIC METABOLIC Collected: 03/05/2018 Status: F Source: [place] PROFILE ([facility]) 4:55 AM [facility] REPOSITORY TYPE CODE TESTS RESULT OUT OF RANGE REFERENCE UNITS LAB L501.0100 74-106 mg/dL High GLU 115 Result Comment: Fasting Glucose result from 100 to 125 mg/dL suggests IMPAIRED HOMEOSTASIS per A.D.A. criteria. Please note revised GLUCOSE reference range effective 2017. LAB L501.1000 7-18 mg/dL Normal BUN 12 LAB L501.1100 0.70-1.30 mg/dL Normal CREAT,SERUM 0.75 Result Comment: The validity of the calculated GFR AND GFRAA in patients over 70 years has not been determined. Clinical correlation is essential. LAB L501.1110 >60 mL/min Normal EST GFR 108 Result Comment: Non- GFR Calc LAB L501.1115 >60 mL/min Normal EST GFR - AA 130 Result Comment: GFR Calc LAB L501.1255 ml/min Normal Estimated CRCL 58.48 LAB L501.1300 10-20 RATIO Normal BUN/CRE 15.9 LAB L501.2200 8.5-10 mg/dL Low .1 CA 8.4 LAB L501.5300 136-14 mmol/L Normal 5 NA 139 LAB L501.5600 3.5-5. mmol/L Normal 1 K 4.5 LAB L501.5900 98-107 mmol/L Normal CL 106 LAB L501.6100 21.0-3 mmol/L Normal 2.0 CO2 22.0 LAB L501.6200 5-15 Normal GAP 11 Performed By: #### L500.2500, L500.3400, L501.2450, L501.4010 #### [facility] [address] [facility]. [place], [place], [id number] LIVER PROFILE Collected: 03/05/2018 Status: F Source: [place] 4:55 AM [facility] REPOSITORY TYPE CODE TESTS RESULT OUT OF RANGE REFERENCE UNITS LAB L501.1500 6.4-8.2 g/dL Normal T PROT 7.1 LAB L501.1800 3.2-5.0 g/dL Normal ALB 3.3 LAB L501.1950 2.2-4.2 g/dL Normal GLOB 3.8 LAB L501.4100 15-37 U/L Normal AST 29 LAB L501.4305 45-117 U/L Normal ALK P 64 LAB L501.4405 16-61 U/L Normal ALT 28 LAB L501.4600 0.20-1.00 mg/dL High T BILI 1.40 LAB L501.4700 0.00-0.30 mg/dL Normal D BILI 0.23 Performed By: #### L500.2500, L500.3400, L501.2450, L501.4010 #### [facility] [address] [place], [place], [id number] LIPASE Collected: 03/05/2018 Status: F Source: [place] 4:55 AM [facility] REPOSITORY TYPE CODE TESTS RESULT OUT OF RANGE REFERENCE UNITS LAB L501.2450 73-393 U/L Normal LIPASE 128 Performed By: #### L500.2500, L500.3400, L501.2450, L501.4010 #### [facility] [address] [place], [place], [address] TROPONIN-I Collected: 03/05/2018 Status: F Source: [place] 4:55 AM [facility] REPOSITORY TYPE CODE TESTS RESULT OUT OF RANGE REFERENCE UNITS LAB L501.4010 <0.045 ng/mL Normal < 0.015 TROPONIN-I Result Comment: TROPONIN-I EXPECTED VALUES <0.045 Negative 0.045 - 0.590 Consistent with Cardiac Damage > OR = 0.600 Critical Value Not every elevated troponin is indicative of TN. These values should be used with clinical judgement in examining the patient's clinical picture for diagnosis. To establish a diagnosis of TN versus myocardial injury, there must be a demonstrated rise and/or fall in the troponin values, in addition to ischemic symptoms, EKG changes, new regional wall motion abnormality, and/or angiographical evidence. PLEASE NOTE: REFERENCE RANGES EDITED 17 Performed By: #### L500.2500, L500.3400, L501.2450, L501.4010 #### [facility] [address] [facility] [place], [address] HGMP Collected: 02/16/2018 Status: F Source: [facility] 7:46 AM [facility] REPOSITORY TYPE CODE TESTS RESULT OUT OF REFERENCE UNITS RANGE LAB WBC(LOINC) 4.60-10.80 10 3/mcL High WBC 12.10 LAB RBCCT(LOINC 4.04-6.13 10 6/mcL ) RBC 4.77 LAB HGB(LOINC) 14.0-18.0 G/dL Hgb 15.4 LAB HCT(LOINC) 42.0-52.0 % Hct 44.9 LAB MCV(LOINC) 80.0-94.0 fL MCV 94.0 LAB MCH(LOINC) 27.0-31.2 pg High MCH 32.3 LAB MCHC(LOINC) 31.8-35.4 G/dL MCHC 34.4 LAB RDW(LOINC) 11.5-14.5 % RDW 13.9 LAB PLT(LOINC) 130-400 10 3/mcL Platelet 282 LAB MPV(LOINC) 7.4-10.4 fL MPV 9.5 Performed By: #### PSA, GFR, CMP, LIPID #### [place] [address] #### HGMP #### [address] [address] PSA Collected: 02/16/2018 Status: F Source: [facility] 7:46 AM [facility] REPOSITORY TYPE CODE TESTS RESULT OUT OF REFERENCE UNITS RANGE LAB PSA(LOINC) 0.00-4.00 ng/mL Prostate 0.28 Specific Antigen Performed By: #### PSA, GFR, CMP, LIPID #### [place] [address] #### HGMP #### [address] [address] LIPID Collected: 02/16/2018 Status: F Source: [facility] 7:46 AM [facility] REPOSITORY TYPE CODE TESTS RESULT OUT OF REFERENCE UNITS RANGE LAB CHOL(LOINC 0-200 mg/dL ) Cholesterol 160 Result Comment: Cholesterol Reference Interval: Less than 200 Desirable 200-239 Borderline high risk 240 and above High risk LAB TRIG(LOINC) 0-150 mg/dL Triglycerides 86 Result Comment: Triglyceride Reference Interval: Less than 150 Normal 150-199 Borderline high risk 200-499 High risk 500 or higher Very high risk LAB HD(LOINC) 40-60 mg/dL HDL Cholesterol 40 LAB LDL(LOINC) 0-130 mg/dL LDL Cholesterol 103 Performed By: #### PSA, GFR, CMP, LIPID #### [place] [address] #### HGMP #### [place] [address] [place], [place] [address] CMP Collected: 02/16/2018 Status: F Source: [facility] 7:46 AM [facility] REPOSITORY TYPE CODE TESTS RESULT OUT OF REFERENCE UNITS RANGE LAB GLU(LOINC) 83-110 mg/dL Glucose Level 92 LAB NA(LOINC) 136-145 mmol/L Sodium Level 138 LAB K(LOINC) 3.5-5.1 mmol/L Potassium Level 4.5 LAB CL(LOINC) 98-107 mmol/L Chloride 102 LAB CO2(LOINC) 23-31 mmol/L CO2 28 LAB EBAL(LOINC mEq/L ) Electrolyte Balance 8.0 LAB BUN(LOINC) 7-18 mg/dL BUN 13 LAB CRE(LOINC) 0.70-1.30 mg/dL Creatinine Lvl (s) 0.75 LAB BC(LOINC) 7-27 ratio BUN/Creatinine 17 Ratio LAB CA(LOINC) 8.4-10.2 mg/dL Calcium Lvl 8.9 LAB PROT(LOINC 6.4-8.2 G/dL ) Total Protein 7.2 LAB ALB(LOINC) 3.4-4.8 G/dL Albumin Level 3.8 LAB GLB(LOINC) G/dL Globulin 3.4 LAB AG(LOINC) 1.1-2.5 ratio A/G Ratio 1.1 LAB BILT(LOINC 0.2-1.0 mg/dL ) Bili Total 1.0 LAB AP(LOINC) 40-135 U/L Alk Phos 69 LAB AST(LOINC) 10-40 U/L AST/SGOT 14 LAB ALT(LOINC) 10-35 U/L ALT/SGPT 34 Performed By: #### PSA, GFR, CMP, LIPID #### [address] [address] #### HGMP #### [address] [address] .GFR Collected: 02/16/2018 Status: F Source: [facility] 7:46 AM [facility] REPOSITORY TYPE CODE TESTS RESULT OUT OF REFERENCE UNITS RANGE LAB GFRAA(LOINC ml/min/1.73 ) sqm GFR 123 Cameroonian Result Comment: GFR Population mean for , Non- Americans Ages 20-29 = 116 mL/min/1.73 sq.m. Ages 30-39 = 107 mL/min/1.73 sq.m. Ages 40-49 = 99 mL/min/1.73 sq.m. Ages 50-59 = 93 mL/min/1.73 sq.m. Ages 60-69 = 85 mL/min/1.73 sq.m. Ages 70+ = 75 mL/min/1.73 sq.m. Chronic Kidney Disease: Less than 60 mL/min/1.73 square meters End Stage Renal Disease: Less than 15 mL/min/1.73 square meters LAB GFRNO(LOINC) ml/min/1.73sqm GFR Non- 102 Result Comment: GFR Population mean for , Non- Americans Ages 20-29 = 116 mL/min/1.73 sq.m. Ages 30-39 = 107 mL/min/1.73 sq.m. Ages 40-49 = 99 mL/min/1.73 sq.m. Ages 50-59 = 93 mL/min/1.73 sq.m. Ages 60-69 = 85 mL/min/1.73 sq.m. Ages 70+ = 75 mL/min/1.73 sq.m. Chronic Kidney Disease: Less than 60 mL/min/1.73 square meters End Stage Renal Disease: Less than 15 mL/min/1.73 square meters Performed By: #### PSA, GFR, CMP, LIPID #### [address] [address] #### HGMP #### [address] [address] PROGRESS Observed: 07/31/2017 Status: COMPLETED Source: [place] 9:43 AM [facility] REPOSITORY HNO ID: [id number] Author: Evon Miller Service: (none) Author Type: Nurse Practitioner Type: Progress Notes Filed: 07/31/2017 9:46 AM Note Text: Patient is a 72 year old male presenting with cough. The history is provided by the patient (coughing since worse when laying down, headache, sneezing, fever, sinus pressure ). Cough Associated symptoms include sore throat. He has tried decongestants for the symptoms. Review of Systems Constitutional: Positive for fever. HENT: Positive for congestion, sinus pain and sore throat. Respiratory: Positive for cough. Physical Exam Constitutional: He is oriented to person, place, and time and well-developed, well-nourished, and in no distress. Vital signs are normal. BP 132/68 Pulse 82 Temp 36.8 ?C (98.3 ?F) (Tympanic) Resp 16 Wt 93 kg (205 lb) SpO2 99% BMI 33.59 kg/m2 HENT: Right Ear: Tympanic membrane normal. Left Ear: Tympanic membrane normal. Nose: Rhinorrhea present. Mouth/Throat: Oropharynx is clear and moist. Clear rhinorrhea , sinus pressure upon palpation Cardiovascular: Normal rate and regular rhythm. Neurological: He is oriented to person, place, and time. ASSESSMENT/PLAN: 1. Cough - ICD9: 786.2, ICD10: R05 (primary diagnosis) - BENZONATATE 100 MG CAPSULE 2. Bacterial sinusitis - ICD9: 473.9, 041.9, ICD10: J32.9, B96.89 - The patient should also be given OTC cough and cold meds as needed and warm salt water gargles, throat lozenges and/or OTC throat spray as needed for the first 5-7 days of treatment. - Supportive care with plenty of fluids, rest, and analgesia prn. - Follow up in 3-5 days if symptoms persist or worsen. - AZITHROMYCIN 250 MG TABLET Evon Miller CNP CNOV Observed: 07/31/2017 Status: COMPLETED Source: [place] 9:15 AM [facility] REPOSITORY Office Visit (WSTR) TRI FRANK ([id number]) 1945 M Date Time Provider Department 07/31/17 9:15 AM EVON MILLER) WSTR During your visit today, we recorded the following information about you: Temperature Pulse Respiration Blood pressure 98.3 degrees 82/minute 16/minute 132/68 Weight 93 kg Evon Miller CNP 07/31/2017 9:46 AM Signed Patient is a 72 year old male presenting with cough. The history is provided by the patient (coughing since worse when laying down, headache, sneezing, fever, sinus pressure ). Cough Associated symptoms include sore throat. He has tried decongestants for the symptoms. Review of Systems Constitutional: Positive for fever. HENT: Positive for congestion, sinus pain and sore throat. Respiratory: Positive for cough. Physical Exam Constitutional: He is oriented to person, place, and time and well-developed, well-nourished, and in no distress. Vital signs are normal. BP 132/68 Pulse 82 Temp 36.8 ?C (98.3 ?F) (Tympanic) Resp 16 Wt 93 kg (205 lb) SpO2 99% BMI 33.59 kg/m2 HENT: Right Ear: Tympanic membrane normal. Left Ear: Tympanic membrane normal. Nose: Rhinorrhea present. Mouth/Throat: Oropharynx is clear and moist. Clear rhinorrhea , sinus pressure upon palpation Cardiovascular: Normal rate and regular rhythm. Neurological: He is oriented to person, place, and time. ASSESSMENT/PLAN: 1. Cough - ICD9: 786.2, ICD10: R05 (primary diagnosis) - BENZONATATE 100 MG CAPSULE 2. Bacterial sinusitis - ICD9: 473.9, 041.9, ICD10: J32.9, B96.89 - The patient should also be given OTC cough and cold meds as needed and warm salt water gargles, throat lozenges and/or OTC throat spray as needed for the first 5-7 days of treatment. - Supportive care with plenty of fluids, rest, and analgesia prn. - Follow up in 3-5 days if symptoms persist or worsen. - AZITHROMYCIN 250 MG TABLET Evon Miller CNP Referring Provider: SELF [200] Allergies As of Date: 07/31/2017 Noted Allergy Reaction LORAZEPAM 01/29/2015 5 - Intolerance MORPHINE 04/12/2012 12 - Shortness of Breath PENICILLINS 04/12/2012 16 - Unknown Comments: SULFA (SULFONAMIDE ANTIBIOTICS) 08/21/2012 5 - Intolerance Date Reviewed: 07/31/2017 Reviewed by: Amaya Frederick Cma - Fully Assessed Reason for Visit: Cough [28] Cmt: cough and chest congestion x 3 days Rhinitis [369] Cmt: x 3 days Primary Visit Diagnosis:Cough [R05] Other Visit Diagnosis:Bacterial sinusitis [J32.9, B96.89] Order(s):azithromycin (ZITHROMAX) 250 mg tabletTake 1 tablet by mouth once daily.Disp: 5 tabletRfl: 0 benzonatate (TESSALON PERLE) 100 mg capsuleTake 1 capsule by mouth three times daily as needed for Cough for up to 7 days.Disp: 21 capsuleRfl: 0 Prescriptions as of 07/31/2017 Sig: TAMSULOSIN 0.4 MG CAPSULE Take 0.4 mg by mouth. MUPIROCIN 2 % TOPICAL OINTMENT Apply 1 application to affect* LOSARTAN 50 MG TABLET Take 50 mg by mouth twice connie* LUMIGAN OPHTHALMIC Use in eyes. TIMOPTIC OPHTHALMIC Use in eyes. AMLODIPINE 10 MG TABLET Take 10 mg by mouth once stefan* LORATADINE 10 MG CAPSULE Take by mouth once daily. PANTOPRAZOLE 40 MG TABLET,DEL* Take 40 mg by mouth once stefan* NITROGLYCERIN 0.4 MG SUBLINGU* Dissolve 0.4 mg under the ton* METOPROLOL TARTRATE 50 MG TAB* Take 100 mg by mouth once connie* * VITAMIN B COMPLEX TABLET Take 1 tablet by mouth once d* AZITHROMYCIN 250 MG TABLET Take 1 tablet by mouth once d* BENZONATATE 100 MG CAPSULE Take 1 capsule by mouth three* Problem List As Of Date 07/31/2017 Noted Resolved Unspecified essential hypertension [I10] Prostate cancer [C61] Acute gastritis without mention of hemorrhage [*INVALID FOR* Benign neoplasm of colon [D12.6] INVALID FOR* Diverticulosis of colon (without mention of hem*INVALID FOR* Family history of malignant neoplasm of gastroi*INVALID FOR* Prescriptions ordered this encounter Disp Refills Start End AZITHROMYCIN 250 MG TABLET 5 ta* 0 07/31/2017 Route: ORAL Sig: Take 1 tablet by mouth once daily. BENZONATATE 100 MG CAPSULE 21 c* 0 07/31/2017 08/07/2017 Route: ORAL Sig: Take 1 capsule by mouth three times daily as needed for Cough for up to 7 days. Encounter Status:Closed by EVON MILLER CNP on 07/31/17 ALLERGIES ALLERGIES DATE TYPE / NAME / CODE REACTION SEVERITY SOURCE CODE 06/24/2018 Drug Penicillins/F0010 Unknown Unknown Amber Allergy/41 68091(RXNORM) Community [id number]([facility]) Repository 06/24/2018 Drug Sulfa Unknown Unknown Amber Allergy/41 (Sulfonamide [facility] 2987561( Antibiotics)/F001 [facility]) 841499(RXNORM) Repository 06/24/2018 Drug lorazepam/[id number] Other Unknown Duc Allergy/41 460(RXNORM) Community 8406720( Hospital OMED [facility]) Repository 06/24/2018 Drug morphine/[id number] Shortness of [place] Duc Allergy/41 45(RXNORM) breath Community 2068945( Hospital OMED CT) Repository 01/29/2015 DRUG LORAZEPAM INTOLERANCE [facility] INGREDI/[address] [place] 1032857( Repository OMED CT) 08/21/2012 Drug SULFA INTOLERANCE [facility] Class/4195 (SULFONAMIDE [place] [address](SNOM ANTIBIOTICS) Repository ED CT) 04/12/2012 DRUG MORPHINE SHORTNESS OF [facility] INGREDI/41 [address] [place] 0870914( Repository OMED CT) 04/12/2012 Drug PENICILLINS UNKNOWN [facility] Class/4195 [place] [address](SNOM Repository ED CT) ENCOUNTERS ENCOUNTERS ADMIT/DISCHARGE ACCOUNT NUMBER ADMITTING ENCOUNTER LOCATION SOURCE CLASS 06/30/2018/06/30/20 [id number] Ambulatory BBuilding:[address] Repository 06/24/2018/06/25/20 [id number] Mckinley Harden [address] ding:PCURoom Repository : [id number]: 1 06/24/2018 [id number] Mckinley Harden BMSBuilding: Duc Ibarra [facility] Repository 06/24/2018 [id number] Mckinley Harden BMSBuilding: Duc Ibarra [facility] Repository 05/25/2018 [id number] Ambulatory [facility] ding:LAB.FUT Repository URE 04/03/2018/04/03/20 [id number] Ambulatory [address] ding:OLAB [facility] Repository 03/07/2018/03/07/20 [id number] Ambulatory [address] ding:ED Repository 03/05/2018/03/05/20 [id number] Emergency [address] ding:ED Repository 02/16/2018/02/17/20 [id number] Ambulatory [address] ding:DARYL [facility] Repository 07/31/2017/07/31/19 [id number] Ambulatory [address] Repository PAYERS PAYERS ENCOUNTER GUARANTOR PAYER SUBSCRIBER SOURCE 06/30/2018 TRI Connor [facility]: [facility] [id number] APT Number: [address] [place] [address] [id number] [place] [address]Obg: 330) Date:2018-06-30Tel: [phone] [phone] ()Tel: ([phone]) Name:[facility] () () [facility] 000-0000 () [address] [place] [address]HH: 06/30/2018 Secondary TRI Connor [facility] Insurance:MEDICAID [facility]AC [facility] [id number] Repository Number: [id number] [place], [place] Date:2018-06-30 [id number]: [phone] [phone] Name:DESHAWN Jefferson ()Tel: ([phone], [place] 000-0000 (WP) [phone]: 06/24/2018 TRI Connor Primary TRI Connor Duc FR[address] Jr[address] Insurance:MEDICARE ZAC Gandhi: Community [address] PART A [facility] [id number] Number: Repository [address]Bxr: [phone] [id number] [phone] (HP) Date:2018-06-24 06/24/2018 Secondary TRI Xavier Insurance:MEDICAIDPol ZAC Gandhi: Community icy Number: [id number] Hospital [id number] Repository Date:2018-06-24 06/24/2018 Tertiary NOT GIVENUNK Amber Insurance:SELF PAY [facility]: Effective Repository Date:2018-06-24 06/24/2018 TRI Connor Primary TRI GODFREYLER Jr[address]905 Insurance:MEDICARE BEICHLER Jr.: Community [address] PART A [facility] [id number], [place] Number: Repository [address]Jbi: 330 [id number] [phone] (HP) Date:2018-06-24 06/24/2018 Secondary TRI Elkinsoster Insurance:MEDICAIDPol BEICHLER Jr.: Community icy Number: [id number] Hospital [id number] Repository Date:2018-06-24 06/24/2018 Tertiary NOT GIVENUNK Amber Insurance:SELF PAY [facility] Number: Effective Repository Date:2018-06-24 06/24/2018 TRI Connor Primary TRI GODFREYLER Jr.905 Insurance:MEDICARE BEICHLER Jr.: Community [address] A [facility] [id number] [place] Number: Repository [address]Uxf: 330 [id number] [phone] (HP) Date:2018-06-24 06/24/2018 Secondary TRI Xavier Insurance:MEDICAIDPol BEICHLER Jr.: Community icy Number: [id number] Hospital [id number] Repository Date:2018-06-24 06/24/2018 Tertiary NOT GIVENUNK Duc Insurance:SELF PAY [facility] Number: Effective Repository Date:2018-06-24 05/25/2018 TRI Connor Primary TRI GODFREYLER Jr[address]905 Insurance:MEDICARE BEICHLER Jr.: Community [address] PART A [facility] [id number], [place] Number: Repository [id number]: 330 [id number] [phone] (HP) Date:2018-05-25 05/25/2018 Secondary TRI G Duc [facility] ZAC Shanthi: Community icy Number: [id number] Hospital [id number] Repository Date:2018-05-25 05/25/2018 Tertiary NOT GIVENUNK Duc Insurance:SELF PAY [facility] Number: Effective Repository Date:2018-05-25 04/03/2018 TRI Connor Primary TRI Connor [facility] Insurance:MEDICARE BEICHLER JRDOB: [facility] PART BPolicy Number: [id number] [id number] [place], [place] Date:2018-04-03[place], [place] [address]Nhc: 330 [id number]: Name:[place] [address] ()Tel: (999) Administrators LLCPO () () [address] [address]Jgtlhpxox, 000[address] () [place] [address]FI: 04/03/2018 Secondary TRI Connor [facility] Insurance:MEDICAID [facility] Number: [id number] Repository [id number]T Date:2018[place] [id number] [id number]: ([phone]) Name:DESHAWN CRENSHAW [phone] [id number], [place] ()Tel: [phone]) [phone]: (WP) [phone] 03/07/2018 TRI Connor Primary NOT GIVENUNK Duc ZAC [id number] Insurance:SELF PAY [address] Number: Effective Repository [id number]: ([phone]) Date:2018-03-07 [phone] (HP) 03/05/2018 TRI [facility] KIMMAURO [id number] Insurance:MEDICARE ZAC Gandhi: [address] BPolicy [id number] [address], [place] Number: Repository [address]Dbq: [phone] [phone] (HP) Date:2018-03-05 03/05/2018 Secondary TRI Xavier [facility]: [facility] ic Number: [id number] [id number] Repository Date:2018-03-05 03/05/2018 Tertiary NOT GIVENUNK Duc Insurance:SELF PAY [facility]: Effective Repository Date:2018-03-05 02/16/2018 TRI [facility] [place] PART olicy Number: [id number], [place] Date:2018-02-16[place], [place] [address]Bfa: [phone] [id number]: Name:[facility] [id number] (HP)Tel: [phone] Administrators LLCPO (HP) (WP) [address], [phone] (WP) [place] [address]JC: 02/16/2018 Secondary [facility] Insurance:MEDICAID [facility] Number: [id number] Repository [id number] Date:2018-02-16[place], [place] [id number]: [phone] Name:DESHAWN CRENSHAW [phone] [id number], [place] (HP)Tel: [phone]: [phone]
== END 2018-06-25 11:05 | disposition home or self-care (01) ==
LOC: ED 10:41 → PCU 12:41
PROVIDERS: Admitting Provider Family Medicine; Emergency Provider Emergency Medicine; Family Provider Internal Medicine; PCP Internal Medicine; Visit Provider Family Medicine
DX: R07.89 Other chest pain (principal); I10 Essential (primary) hypertension; R06.02 Shortness of breath; J44.9 Chronic obstructive pulmonary disease, unspecified; K21.9 Gastro-esophageal reflux disease without esophagitis; H40.9 Unspecified glaucoma; R55 Syncope and collapse; N40.0 Benign prostatic hyperplasia without lower urinary tract symptoms; R73.9 Hyperglycemia, unspecified; Z85.46 Personal history of malignant neoplasm of prostate; Z86.711 Personal history of pulmonary embolism; Z79.899 Other long term (current) drug therapy; Z87.891 Personal history of nicotine dependence
CPT/HCPCS: 36415; 71045; 74176; 80048; 80053; 80061; 81001; 83036; 83690; 84484; 85025; 85379; 93005; 96360; 96361; 96372; 99218; 99285; J7030; A4216; G0378

== ENCOUNTER 2018-10-27 00:26 | Observation (INO) | payer MEDICARE, MEDICAID, SELFPAY ==
[2018-06-24 13:21] VITALS: BMI 31.8
[2018-10-27] VITALS (12 sets, daily range): BP systolic 130–180; BP diastolic 65–91; PULSE 54–92; RESP 12–18; TEMP 36.4–36.6; O2SAT 92–97; BMI 34.5; BMI 32.3; BMI 34.0
--- NOTE | 2018-10-27 00:44 | EKG12_ITS ---
Test Reason : REPEAT CP Blood Pressure : / mmHG Vent. Rate : 068 BPM Atrial Rate : 068 BPM P-R Int : 208 ms QRS Dur : 080 ms QT Int : 400 ms P-R-T Axes : 059 049 062 degrees QTc Int : 425 ms Normal sinus rhythm Normal ECG Confirmed by LONI WASHINGTON, FERNANDO ([id number]), state editor ANA MURRY ([id number]) on 10/30/2018 11:12:18 AM Referred By: LUDWIN Confirmed By:FERNANDO IVEY MD
--- NOTE | 2018-10-27 00:48 | ED.DCSUM_ITS ---
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 nausea, resolved. Narrative: No shortness of breath, palpitations, near syncope. No recent leg swelling or pain. States this feels the same as when he was diagnosed with a blood clot 7 years ago or so. He is no longer on anticoagulants. No recent travel, immobilization, hospitalization, or surgery. He had a stress test may be 2 years ago that was unremarkable. He is a former smoker. Compliant with medications he is prescribed. He states he had 2 heart caths, one in 1990 and one in 2000, at [facility] which no longer [facility], and [facility]. Both were unremarkable. - Past Medical History (1) Hyperlipidemia Status: Chronic (2) COPD (chronic obstructive pulmonary disease) Status: Chronic Comment: mild (3) Gastroesophageal reflux disease Status: Chronic (4) HTN (hypertension) Status: Chronic (5) Hx pulmonary embolism Status: Chronic Past Medical History - Allergies and Home Meds Allergies/Adverse Reactions: Allergies Penicillins Allergy (Verified 10/27/18 00:30) Unknown Sulfa (Sulfonamide Antibiotics) Allergy (Verified 10/27/18 00:30) Unknown morphine Adverse Reaction (Intermediate, Verified 10/27/18 00:30) Shortness of breath lorazepam Adverse Reaction (Verified 10/27/18 00:30) Other blurry vision Surgical History: tonsillectomy Lives: Spouse/ Significant Other Smoking Status: Former smoker - Family History Maternal Family History: Reports: No pertinent history Paternal Family History: Reports: Heart Disease Review of Systems General: Reports: Malaise, Sweats. Denies: Chills, Fever Eyes: Denies: Visual changes - bilaterally, Diplopia ENT: Denies: Rhinorrhea, Sore throat Cardiovascular: Reports: Chest pain. Denies: Palpitations, Heart racing Respiratory: Denies: Dyspnea, Cough, Dyspnea on exertion Gastrointestinal: Reports: Nausea - gone. Denies: Abdominal pain, Vomiting, Diarrhea, Melena, Hematochezia Genitourinary: Denies: Dysuria, Hematuria, Frequency Musculoskeletal: Reports: Extremity Pain - RUE - gone Skin: Denies: Rash, Wounds Neurological: Denies: Headache, Weakness, Numbness Physical Exam Vital Signs/Narrative: Vital Signs Temp Pulse Resp BP Pulse Ox 10/27/18 00:27 97.9 F 92 12 180/91 H 97 Inital Vital Signs reviewed: Yes General: Well nourished, Well developed, No Acute Distress Head: Normocephalic, Atraumatic Eyes: Perrl, EOMI ENT: Moist mucous membranes, No rhinorrhea Neck: Supple, Nontender, No JVD Cardiovascular: Regular rate, Regular rhythm, No murmurs, Normal S1, Normal S2. Negative for: Tachycardia Respiratory: No distress, CTA bilaterally, Chest nontender Abdomen: Soft, Nontender, Nondistended, Normal bowel sounds Back: Nontender, Normal Inspection Extremities: Nontender, No edema. Negative for: Calf Tenderness Skin: Normal color, No rash Neurological: Alert, Oriented x3, Cranial nerves II-XII grossly intact, Normal Strength, Normal Sensation Psychological: Normal affect, Normal Mood Diagnostic/Tx/Re-eval Chest X-Ray - ED: 1 View, Read by ED Physician, No Acute Disease, Chronic Changes Laboratory Tests 10/27/18 10/27/18 10/27/18 Range/Units 00:35 00:35 00:35 WBC 12.0 H (4.4-11.0) K/mm3 RBC 5.11 (4.6-6.2) M/mm3 Hgb 15.7 (13.0-16.5) g/dl Hct 46.2 (40-54) % MCV 90.4 (80-94) fL MCH 30.7 (27.0-32.0) pg MCHC 34.0 (32-36) g/gl RDW 13.5 (11.6-14.6) % RDW Differential 44.2 H (35.1-43.9) fl Plt Count 246 (150-450) K/mm3 MPV 10.8 (6.2-12.0) fl Immature Gran % (Auto) 0.800 (0.0-0.9) % Neut % (Auto) 75.5 H (47-70) % Lymph % (Auto) 14.9 L (19-41) % Edwards % (Auto) 7.5 (0-10) % Eos % (Auto) 1.0 (0-5) % Baso % (Auto) 0.3 (0-1) % Absolute Neuts (auto) 9.0 H (2.0-7.7) X10^3/uL Absolute Lymphs (auto) 1.79 (0.83-4.51) X10^3/ul Total Counted Not Reportable D-Dimer Quant (PE/DVT) 0.39 (0.27-0.49) FEU/ug/m Sodium 140 (136-145) mmol/L Potassium 3.3 L (3.5-5.1) mmol/L Chloride 106 (98-107) mmol/L Carbon Dioxide 27.0 (21.0-32.0) mmol/L Anion Gap 7 (5-15) BUN 10 (7-18) mg/dL Creatinine 0.75 (0.70-1.30) mg/dL Estim Creat Clear Calc 56.38 ml/min Est GFR (MDRD) Af Amer 131 (>60) mL/min Est GFR (MDRD) Non-Af 109 (>60) mL/min BUN/Creatinine Ratio 13.4 (10-20) RATIO Glucose 138 H (74-106) mg/dL Calcium 8.2 L (8.5-10.1) mg/dL Troponin I < 0.015 (<0.045) ng/mL - Rhythm Strip Rhythm Strip: Sinus Rhythm Rate: 80 Ectopy: None - EKG Initial EKG Interpretation: Sinus Rhythm, No Acute Injury Pattern - nml axis. nml EKG. Follow-up EKG Interpretation: Sinus Rhythm, No Acute Injury Pattern Prior: Unchanged - Medical Decision Making FRANCA risk score - 2 HEART score - 4 EKG unremarkable while he was chest pain-free, workup is negative so far but he had discomfort that started only 1 hour prior to arrival. His chest pain returned mild, while sitting and at rest in the emergency department, after the workup returned. EKG was repeated. No acute injury pattern or significant dynamic changes. He was given nitroglycerin, which made his burning discomfort resolve; NTG paste applied. Plan is for admission for evaluation and further treatment. ED Disposition - Plan for ED Patient: Disposition: [facility] Diagnosis: Chest pain
[2018-10-27 00:54] LABS: Absolute Lymphocyte Count 1.79 X10^3/ul (0.83-4.51); Basophil# 0.03 X10^3/uL; Basophil% 0.3 % (0-1); Eosinophil# 0.12 X10^3/uL; Hematocrit 46.2 % (40-54); Hemoglobin 15.7 g/dl (13.0-16.5); Lymphocyte # 1.79 X10^3/ul (4.0); Lymphocyte % 14.9 % (19-41); Mean Corpuscular Hgb 30.7 pg (27.0-32.0); Mean Corpuscular Volume 90.4 fL (80-94); Mean Platelet Vol. 10.8 fl (6.2-12.0); Monocyte% 7.5 % (0-10); Neutrophil # 9.04 X10^3/uL (2.7-7.7); Neutrophil % 75.5 % (47-70); Platelet Count 246 K/mm3 (150-450); RBC Distribution Width CV 13.5 % (11.6-14.6); RBC Distribution Width SD 44.2 fl (35.1-43.9); Red Blood Count 5.11 M/mm3 (4.6-6.2)
--- NOTE | 2018-10-27 00:55 | RAD_ITS ---
HISTORY: chest pain EXAM:XR Chest 1 View portable COMPARISON: 06/24/2018 FINDINGS: EKG leads in place. Normal heart size. Left basilar chronic mild scarring or atelectasis and right basilar chronic interstitial thickening. No vascular congestion or pulmonary consolidation. No pneumothorax. Atherosclerotic thoracic aorta. Previous kyphoplasty of the T11 level. RAD/Chest 1 View (Portable) IMPRESSION: 1. Left basilar chronic atelectasis or mild scarring. 2. No pneumonia or CHF identified. at 0122 Reported and signed by: Gordon Lopez MD Electronically Signed: Gordon Lopez, at 1:21 EDT Tel , Service support ,
[2018-10-27 00:57] LABS: POSITIVE COUNT NO; POSITIVE DIFFERENTIAL NO; POSITIVE MORPHOLOGY NO
[2018-10-27] MEDS: 0.9% Normal Saline 1,000 ML 150 ML IV (01:00)
[2018-10-27 01:04] LABS: Anion Gap 7 (5-15); BUN 10 mg/dL (7-18); BUN/Creat Ratio 13.4 RATIO (10-20); Calcium,Total 8.2 mg/dL (8.5-10.1); Chloride 106 mmol/L (98-107); Creatinine, Serum 0.75 mg/dL (0.70-1.30); D-Dimer Quantitative (DVT/PE) 0.39 FEU/ug/m (0.27-0.49); EST Glomerular Filtration Rate 109 mL/min (>60); Est Glom Filt Rate - Afr Amer 131 mL/min (>60); Estimated Creatinine Clearance 56.38 ml/min; Glucose 138 mg/dL (74-106); Potassium 3.3 mmol/L (3.5-5.1); Sodium Level 140 mmol/L (136-145)
--- NOTE | 2018-10-27 01:55 | HP.PCM_ITS ---
Problem List (1) Chest pain Status: Acute (2) Hyperlipidemia Status: Chronic (3) HTN (hypertension) Status: Chronic History of Present Illness Date of Admission: 10/27/18 Chief Complaint: chest pain The patient is a 73 year old M with a significant history of hypertension; prostate cancer status post radiation ( and implantation of some material); former tobacco abuse who presented to the emergency department with substernal chest pain that radiated to his right arm and to his right wrist. He rates his chest pain severity as 9 out of 10. His chest pain is dull and burning. Associated with his symptoms is shortness of breath and diaphoresis. He reports burning in his throat. He denies any nausea or vomiting. He denies any aggravating or ameliorating factor. His chest pain occurred at rest a few hours before presentation. He was evaluated with health cath in 1990 and in 2000 and both were unremarkable. Also he think he had a stress test in at [facility]. At the emergency department his troponin was negative. Chest x-ray showed some mild atelectasis in the left lower base. He was admitted and discharged at our the hospital June 24, 2018 and June 25, 2018 respectively with chest pain. 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 Past Medical History Past Medical History (Chronic Problems): Chronic Problems Glaucoma (Chronic) Hyperlipidemia (Chronic) Tobacco user (Chronic) Gastroesophageal reflux disease (Chronic) COPD (chronic obstructive pulmonary disease) (Chronic) mild Hx pulmonary embolism (Chronic) HTN (hypertension) (Chronic) Prostate cancer (Chronic) Allergies Penicillins Allergy (Verified 10/27/18 00:30) Unknown Sulfa (Sulfonamide Antibiotics) Allergy (Verified 10/27/18 00:30) Unknown morphine Adverse Reaction (Intermediate, Verified 10/27/18 00:30) Shortness of breath lorazepam Adverse Reaction (Verified 10/27/18 00:30) Other blurry vision Home Medications: Ambulatory Orders Medication Instructions Recorded Amlodipine [Norvasc] 10 mg PO DAILY 01/27/14 Metoprolol(XL)Succ [Toprol Xl 100 mg PO QHS 01/27/14 (Beta Vivien)] Vitamin B Complex 1 each PO DAILY 01/27/14 Bimatoprost 0.01% [Lumigan 0.01%] 1 drop EACH EYE QHS 07/28/16 Timolol Maleate [Timoptic-XE 0.5%] 1 drop EACH EYE DAILY 07/28/16 Losartan Potassium 50 mg PO BID 05/07/17 Pantoprazole Sodium [Protonix] 40 mg PO DAILY 06/13/17 Nitroglycerin [Nitrostat] 0.4 mg SUBLINGUAL Q5M PRN 03/05/18 Oxycodone HCl/Acetaminophen 1 tablet PO Q8H PRN PRN 03/05/18 [Percocet 10-325 mg Tablet] Cyanocobalamin (Vitamin B-12) 1,000 mcg SL DAILY 06/24/18 [B-12] Tamsulosin HCl [Flomax] 0.4 mg PO QHS 06/24/18 Loratadine [Claritin] 10 mg PO DAILY 10/27/18 Surgical History: tonsillectomy Lives: Spouse/ Significant Other Smoking Status: Former smoker - *Family History Maternal History Items: COPD Paternal History Items: Heart Disease - His father at age 50 from massive heart attack. Review of Systems Constitutional: Denies: Chills, Fever, Weight Change HEENT: Denies: Head Aches, Sinus Congestion, Sinus Drainage Cardiovascular: Reports: Chest Pain. Denies: Palpitations Respiratory: Denies: Cough, Shortness of breath at rest, Sputum production Gastrointestinal: Denies: Abdominal Pain, Nausea, Vomiting Genitourinary: Denies: Dysuria Musculoskeletal: Reports: Joint Pain - Right wrist. Denies: Joint Tenderness Skin: Denies: Rash, Wounds Neurological: Denies: Numbness, Tingling, Focal weakness Psychiatric: Denies: Anxiety, Depression, Homicidal Ideations, Suicidal Ideations Hematologic/ Lymphatic: Denies: Easy Bruising, Easy Bleeding VTE Information - Inpt Only VTE Present on Admission: No VTE Mechan Device Prophylaxis: None VTE Pharm Prophylaxis ordered?: Yes Patient Problems: Active and Suspected Problems Chest pain (Acute) - Physical Exam General: Alert, Oriented x3, Cooperative HEENT: Atraumatic, PERRLA, EOMI, Normocephalic Neck: Supple, No JVD, Negative Carotid Bruits Lungs: Clear to auscultation, Normal air movement Cardiovascular: Regular rate, No murmurs Abdomen: Bowel Sounds Present, Soft, Non Tender Extremities: No edema, Capillary Refill Less than 3 Seconds Skin: No rashes, No breakdown Musculoskeletal: No Tenderness to Palpation of Joints or Extremities Neurological: Neuro grossly intact Psych/Mental Status: Normal Affect, Appropriate Vital Signs Temp Pulse Resp BP Pulse Ox 97.9 F 92 12 180/91 H 97 10/27/18 00:27 10/27/18 00:27 10/27/18 00:27 10/27/18 00:27 10/27/18 00:27 Oxygen Flow Rate (L/min) 2 Oxygen Delivery Method Nasal Cannula Weight: 94.2 kg Body Mass Index (BMI) 34.5 Laboratory Tests Past 24 Hrs 10/27/18 10/27/18 10/27/18 00:35 00:35 00:35 WBC 12.0 H RBC 5.11 Hgb 15.7 Hct 46.2 MCV 90.4 MCH 30.7 MCHC 34.0 RDW 13.5 RDW Differential 44.2 H Plt Count 246 MPV 10.8 Immature Gran % (Auto) 0.800 Neut % (Auto) 75.5 H Lymph % (Auto) 14.9 L [place] % (Auto) 7.5 Eos % (Auto) 1.0 Baso % (Auto) 0.3 Absolute Neuts (auto) 9.0 H Absolute Lymphs (auto) 1.79 Total Counted Not Reportable D-Dimer Quant (PE/DVT) 0.39 Sodium 140 Potassium 3.3 L Chloride 106 Carbon Dioxide 27.0 Anion Gap 7 BUN 10 Creatinine 0.75 Estim Creat Clear Calc 56.38 Est GFR (MDRD) Af Amer 131 Est GFR (MDRD) Non-Af 109 BUN/Creatinine Ratio 13.4 Glucose 138 H Calcium 8.2 L Troponin I < 0.015 Assessment/Plan All Active Problems Chest pain (Acute) Near syncope (Acute) Hyperglycemia (Acute) The patient is a 73 year old M with a significant history of hypertension;prostate cancer status post radiation ( and implantation of some material) former tobacco abuse who presented to the emergency department with substernal chest pain and with a significant family history where his father at age 50 with a massive heart attack. Chest pain Admit to a monitored bed on PCU Chest x-ray showed mild atelectasis in the left lower base. Chest x-ray was independently reviewed. I agree with radiologist interpretation. EKG independently reviewed confirms sinus rhythm. ASA 81 mg p.o. daily SL NTG 0.4 mg x3 was given at emergency department and Nitroglycerin paste placed. Of note patient has an allergy to morphine. We will check lipid panel. High intensity statin x1 dose ordered. Serial cardiac enzymes ordered Stat EKG as needed for chest pain Chemical stress test in the AM if the cardiac enzymes are negative. He report that he has back pain and so he cannot walk fast/run on a tread mill Hypertension On presentation his blood pressure was not within goal but with nitroglycerin his blood pressure reduced appropriately Amlodipine, losartan and metoprolol continued Trend blood pressure and adjust blood pressure medication Hypokalemia: On presentation his potassium was 3.3. Potassium chloride 40 mEq x1 ordered. BPH Tamsulosin continue GERD: Protonix continued. Glaucoma: timolol maleate continued. Allergies: Claritin continued. Chronic back pain: As needed Percocet- 10 continued. DVT prophylaxis Subcutaneous Lovenox. Code Visit OBSV E&M: 56436 Initial observation care L3
[2018-10-27] MEDS: Nitroglycerin Oint 1 INCH PACKET 0.5 INCH TRANSDERM. (03:36)
[2018-10-27] MEDS: Ondansetron 4 MG/2 ML Vial IV (05:42)
--- NOTE | 2018-10-27 05:43 | NURSING ---
PT AWAKE, DRY HEAVING VERY NAUSEATED. PRN ZOFRAN GIVEN
[2018-10-27 06:29] LABS: International Normalized Ratio 1.1; Prothrombin Time (Protime)PT. 13.7 SECONDS (11.7-14.9)
[2018-10-27 06:35] LABS: Cholesterol 136 mg/dL (200); High Density Lipoprotein 35 mg/dL; Triglycerides 70 mg/dL; Very Low Density Lipoprotein 14 mg/dL (5-40)
[2018-10-27] MEDS: Aspirin E.C. 81 MG Tablet PO (08:09)
[2018-10-27] MEDS: Losartan Potassium 50 MG Tablet PO (08:09)
[2018-10-27] MEDS: amLODIPine 10 MG Tablet PO (10:29)
[2018-10-27] MEDS: Loratadine 10 MG Tablet PO (10:29)
[2018-10-27] MEDS: Cyanocobalamin 500 MCG Tablet 1000 MCG PO (10:29)
[2018-10-27] MEDS: Vitamin B Comp W-C Capsule 1 CAP PO (10:30)
[2018-10-27] MEDS: Pantoprazole Sodium 40 MG Tablet PO (10:30)
--- NOTE | 2018-10-27 10:48 | STRESSREP ---
Stress Test Report Pharmacologic myocardial perfusion stress test. 73-year-old male with a history of chest pain. Stress protocol: Resting EKG demonstrates normal sinus rhythm with a rate of 66 beats minute normal intervals are noted resting blood pressure 168/70 mmHg. 0.4 mg of regadenoson was infused per usual protocol followed by rapid intravenous saline flush injection continuous EKG monitoring was performed. The maximum heart rate attained was 95 bpm which was 65% of maximum predicted heart rate the maximum workload was 1 metabolic equivalent. At rest there were no ST or T wave changes noted suggest abnormal flow reserve at peak infusion nonspecific ST-T wave changes were noted with no meet the criteria for ischemia. Resting blood pressure 160/70 final blood pressure 146/70. Myocardial perfusion protocol. 14.1 mCi of technetium 99m sestamibi was injected at rest. 0.4 mg of regadenoson was infused per usual protocol peak infusion 44.3 mCi of technetium 99m sestamibi was injected stress images were obtained stress and rest images were reconstructed and compared in the short axis vertical long horizontal long axis. Gated images were also obtained per Perfusion SPECT analysis: Review of the stress images demonstrate normal uptake of tracer noted in all areas of the myocardium. The resting images similarly demonstrate normal uptake of tracer noted in all areas of the myocardium. No areas of reversibility are noted suggest ischemia no previous infarct is noted. Gated SPECT analysis: The gated ejection fraction is noted to be 80%. Conclusion: Normal pharmacologic myocardial perfusion stress test. Preserved ejection fraction.
--- NOTE | 2018-10-27 11:36 | PCM.DC.SUM ---
Discharge Date and Diagnosis - Problem List Patient Problems: Active and Suspected Problems Chest pain (Acute) Date of Admission: 10/27/18 Date of Discharge: 10/27/18 - Primary Discharge Diagnosis Active and Suspected Problems Chest pain (Acute) - Secondary Discharge Diagnosis Chronic Problems Glaucoma (Chronic) Hyperlipidemia (Chronic) Tobacco user (Chronic) Gastroesophageal reflux disease (Chronic) COPD (chronic obstructive pulmonary disease) (Chronic) mild Hx pulmonary embolism (Chronic) HTN (hypertension) (Chronic) Prostate cancer (Chronic) Hospital Course and Treatment Imaging Results: 10/27/18 05:55 Nuclear Stress Test - Chemical [NM] AM (NON MEDS) Consults: None Operations: None Procedures: Nuclear stress test - Perfusion SPECT analysis: Review of the stress images demonstrate normal uptake of tracer noted in all areas of the myocardium. The resting images similarly demonstrate normal uptake of tracer noted in all areas of the myocardium. No areas of reversibility are noted suggest ischemia no previous infarct is noted. Gated SPECT analysis: The gated ejection fraction is noted to be 80%. Conclusion: Normal pharmacologic myocardial perfusion stress test. Preserved ejection fraction. Summary of Care Provided: Per HPI: The patient is a 73 year old M with a significant history of hypertension; prostate cancer status post radiation ( and implantation of some material); former tobacco abuse who presented to the emergency department with substernal chest pain that radiated to his right arm and to his right wrist. He rates his chest pain severity as 9 out of 10. His chest pain is dull and burning. Associated with his symptoms is shortness of breath and diaphoresis. He reports burning in his throat. He denies any nausea or vomiting. He denies any aggravating or ameliorating factor. His chest pain occurred at rest a few hours before presentation. He was evaluated with health cath in 1990 and in 2000 and both were unremarkable. Also he think he had a stress test in 2015/2016 at [facility]. At the emergency department his troponin was negative. Chest x-ray showed some mild atelectasis in the left lower base. He was admitted and discharged at our the hospital June 24, 2018 and June 25, 2018 respectively with chest pain. 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 Hospital Course: 1. Chest pain/[id number]-old male with a history of hypertension, prostate cancer and former tobacco abuse has presented multiple times in the last several months with chest pain. He unfortunate was unable to stay due to prior outpatient commitments, however he did have serial troponins at that time which were negative. He presents again with chest pain that was substernal and radiated to his right arm into his right wrist. This was atypical in presentation however considering he has had previous ER visits he was admitted for an observation to have a stress test. The stress test was performed today and was found to be negative and he states that his symptoms have resolved and he is feeling much better. He would like to go home and I recommended that he follow-up with his primary care physician to further workup a burning chest pain. This could be secondary to GERD and he is on a PPI but may need an EGD as an outpatient. 2. His other medical diagnoses were evaluated and his home medications were continued where appropriate Patient Problems: Active and Suspected Problems Chest pain (Acute) - Physical Exam General: Alert, Oriented x3, Cooperative, No apparent distress HEENT: Atraumatic, PERRLA, EOMI, Normocephalic Oral: Moist Mucosa Neck: Supple, No JVD, Trachea Midline Lungs: Clear to auscultation, Normal air movement, No rhonchi, No wheeze, No rales Cardiovascular: Regular rate, Regular Rhythm, Normal S1, Normal S2, No murmurs Abdomen: Soft, Non Tender, Non-Distended, No Hepato-splenomegaly Extremities: No edema, Capillary Refill Less than 3 Seconds Skin: - - Multiple areas of ecchymosis on both arms is chronic Neurological: Neuro grossly intact, Sensory exam intact to light touch and pain Psych/Mental Status: Normal Affect, Appropriate Vital Signs Temp Pulse Resp BP Pulse Ox 97.6 F L 81 18 130/69 H 92 10/27/18 08:10 10/27/18 11:00 10/27/18 08:10 10/27/18 08:10 10/27/18 08:40 Oxygen Flow Rate (L/min) 2 Oxygen Delivery Method Room Air Weight: 194 lb 3.636 oz Body Mass Index (BMI) 32.3 Intake and Output for Last 24 Hours 10/25/18 10/26/18 10/27/18 23:59 23:59 23:59 Intake Total 25 / 25 Balance 25 / 25 Laboratory Tests Past 24 Hrs 10/27/18 10/27/1819 00:35 00:35 00:35 WBC 12.0 H RBC 5.11 Hgb 15.7 Hct 46.2 MCV 90.4 MCH 30.7 MCHC 34.0 RDW 13.5 RDW Differential 44.2 H Plt Count 246 MPV 10.8 Immature Gran % (Auto) 0.800 Neut % (Auto) 75.5 H Lymph % (Auto) 14.9 L [place] % (Auto) 7.5 Eos % (Auto) 1.0 Baso % (Auto) 0.3 Absolute Neuts (auto) 9.0 H Absolute Lymphs (auto) 1.79 Total Counted Not Reportable PT INR D-Dimer Quant (PE/DVT) 0.39 Sodium 140 Potassium 3.3 L Chloride 106 Carbon Dioxide 27.0 Anion Gap 7 BUN 10 Creatinine 0.75 Estim Creat Clear Calc 56.38 Est GFR (MDRD) Af Amer 131 Est GFR (MDRD) Non-Af 109 BUN/Creatinine Ratio 13.4 Glucose 138 H Calcium 8.2 L Troponin I < 0.015 Triglycerides Cholesterol LDL Cholesterol VLDL Cholesterol HDL Cholesterol 10/27/18 10/27/18 10/27/18 05:48 05:48 05:48 WBC RBC Hgb Hct MCV MCH MCHC RDW RDW Differential Plt Count MPV Immature Gran % (Auto) Neut % (Auto) Lymph % (Auto) [place] % (Auto) Eos % (Auto) Baso % (Auto) Absolute Neuts (auto) Absolute Lymphs (auto) Total Counted PT 13.7 INR 1.1 D-Dimer Quant (PE/DVT) Sodium Potassium Chloride Carbon Dioxide Anion Gap BUN Creatinine Estim Creat Clear Calc Est GFR (MDRD) Af Amer Est GFR (MDRD) Non-Af BUN/Creatinine Ratio Glucose Calcium Troponin I < 0.015 Triglycerides 70 Cholesterol 136 LDL Cholesterol 87 VLDL Cholesterol 14 HDL Cholesterol 35 L 10/27/18 10:22 WBC RBC Hgb Hct MCV MCH MCHC RDW RDW Differential Plt Count MPV Immature Gran % (Auto) Neut % (Auto) Lymph % (Auto) [place] % (Auto) Eos % (Auto) Baso % (Auto) Absolute Neuts (auto) Absolute Lymphs (auto) Total Counted PT INR D-Dimer Quant (PE/DVT) Sodium Potassium Chloride Carbon Dioxide Anion Gap BUN Creatinine Estim Creat Clear Calc Est GFR (MDRD) Af Amer Est GFR (MDRD) Non-Af BUN/Creatinine Ratio Glucose Calcium Troponin I < 0.015 Triglycerides Cholesterol LDL Cholesterol VLDL Cholesterol HDL Cholesterol Call your doctor if you observe: Fever of 101 or Higher, Shortness of breath, Dizziness, Fainting spells, Swelling in the ankles, Chest pain, Increased palpitations (irregular heartbeat) Home Medications: Medications to take at Discharge Amlodipine [Norvasc] 10 mg PO DAILY 01/27/14 Metoprolol(XL)Succ [Toprol Xl (Beta Vivien)] 100 mg PO QHS 01/27/14 Vitamin B Complex 1 each PO DAILY 01/27/14 Timolol Maleate [Timoptic-XE 0.5%] 1 drop EACH EYE QHS 07/28/16 Losartan Potassium 50 mg PO BID 05/07/17 Pantoprazole Sodium [Protonix] 40 mg PO DAILY 06/13/17 Nitroglycerin [Nitrostat] 0.4 mg SUBLINGUAL Q5M PRN 03/05/18 Oxycodone HCl/Acetaminophen [Percocet 10-325 mg Tablet] 1 tablet PO Q8H PRN PRN 03/05/18 Cyanocobalamin (Vitamin B-12) [B-12] 1,000 mcg SL DAILY 06/24/18 Tamsulosin HCl [Flomax] 0.4 mg PO QHS 06/24/18 Aspirin E.C. [Ecotrin] 81 mg PO DAILY@0800 tablet 10/27/18 Loratadine [Claritin] 10 mg PO DAILY 10/27/18 Primary Care Physician: Layo Clifford DO [Primary Care Provider] - Please follow up with your Primary Care Physician in: 3-5 days Disposition: Home Minutes spent on discharge:: 35 Patient Condition:: Stable Medical Necessity - Tobacco Use Smoking Status: Former smoker Meaningful Use Info Meaningful Use Diagnoses (Choose all that apply): None applicable Code Visit OBSV E&M: 02234 Observation care discharge
--- NOTE | 2018-10-27 11:37 | DCINST_ITS ---
- Discharge Diagnoses Current Active Problems: Current Active and Chronic Problems Chest pain (Acute) You will use the following diet at home:: Cardiac Your food should be the consistency of: Regular Your liquids should be the consistency of: Regular/Thin Discharge Activity: Return to Normal Activity Call your doctor if you observe: Fever of 101 or Higher, Shortness of breath, Dizziness, Fainting spells, Swelling in the ankles, Chest pain, Increased palpitations (irregular heartbeat) Allergies/Adverse Reactions: Allergies Penicillins Allergy (Verified 10/27/18 00:30) Unknown Sulfa (Sulfonamide Antibiotics) Allergy (Verified 10/27/18 00:30) Unknown morphine Adverse Reaction (Intermediate, Verified 10/27/18 00:30) Shortness of breath lorazepam Adverse Reaction (Verified 10/27/18 00:30) Other blurry vision Medications to take at Discharge Amlodipine [Norvasc] 10 mg PO DAILY 01/27/14 Metoprolol(XL)Succ [Toprol Xl (Beta Vivien)] 100 mg PO QHS 01/27/14 Vitamin B Complex 1 each PO DAILY 01/27/14 Timolol Maleate [Timoptic-XE 0.5%] 1 drop EACH EYE QHS 07/28/16 Losartan Potassium 50 mg PO BID 05/07/17 Pantoprazole Sodium [Protonix] 40 mg PO DAILY 06/13/17 Nitroglycerin [Nitrostat] 0.4 mg SUBLINGUAL Q5M PRN 03/05/18 Oxycodone HCl/Acetaminophen [Percocet 10-325 mg Tablet] 1 tablet PO Q8H PRN PRN 03/05/18 Cyanocobalamin (Vitamin B-12) [B-12] 1,000 mcg SL DAILY 06/24/18 Tamsulosin HCl [Flomax] 0.4 mg PO QHS 06/24/18 Aspirin E.C. [Ecotrin] 81 mg PO DAILY@0800 tablet 10/27/18 Loratadine [Claritin] 10 mg PO DAILY 10/27/18 Primary Care Physician: Laoy Clifford DO [Primary Care Provider] - Please follow up with your Primary Care Physician in: 3-5 days Test Results: Test results from this visit will be discussed in further detail at your follow- up appointment, if applicable.
== END 2018-10-27 11:36 | disposition home or self-care (01) ==
LOC: ED 01:22 → PCU 02:26
PROVIDERS: Admitting Provider Hospitalist; Emergency Provider Emergency Medicine; Family Provider Family Medicine; PCP Family Medicine; Visit Provider Family Medicine
DX: R07.89 Other chest pain (principal); R06.02 Shortness of breath; E78.5 Hyperlipidemia, unspecified; J44.9 Chronic obstructive pulmonary disease, unspecified; K21.9 Gastro-esophageal reflux disease without esophagitis; I10 Essential (primary) hypertension; N40.0 Benign prostatic hyperplasia without lower urinary tract symptoms; G89.29 Other chronic pain; H40.9 Unspecified glaucoma; E87.6 Hypokalemia; Z86.711 Personal history of pulmonary embolism; Z87.891 Personal history of nicotine dependence; Z79.899 Other long term (current) drug therapy; Z85.46 Personal history of malignant neoplasm of prostate; Z92.3 Personal history of irradiation
CPT/HCPCS: 36415; 71045; 78452; 80048; 80061; 84484; 85025; 85379; 85610; 93005; 93017; 96361; 96374; 99218; 99285; A9500; J7030; A4216; G0378; J2405; J2785

== ENCOUNTER 2018-11-07 18:35 | Observation (INO) | payer MEDICARE, MEDICAID, SELFPAY ==
[2018-10-27 02:58] VITALS: BMI 32.3
[2018-11-07 18:36] VITALS: BP 171/72; PULSE 111; RESP 18; TEMP 36.9; O2SAT 96; BMI 31.1
--- NOTE | 2018-11-07 18:37 | ED.RN ---
CALLED FOR EKG, PULLED OLD EKGS FOR
[2018-11-07 18:46] VITALS: O2SAT 99
--- NOTE | 2018-11-07 18:46 | EKG12_ITS ---
Test Reason : Blood Pressure : / mmHG Vent. Rate : 075 BPM Atrial Rate : 075 BPM P-R Int : 182 ms QRS Dur : 084 ms QT Int : 388 ms P-R-T Axes : 057 043 061 degrees QTc Int : 433 ms Normal sinus rhythm Normal ECG Confirmed by LONI WASHINGTON, FERNANDO ([id number]), city editor MAGALY LYNN ([id number] on 11/09/2018 9:46:32 AM Referred By: Sanket Haider Confirmed By:FERNANDO IVEY MD
--- NOTE | 2018-11-07 18:46 | RAD_ITS ---
STUDY: X-RAY CHEST REASON FOR EXAM: Male, 73 years old. Chest pain. TECHNIQUE: Single AP portable view of the chest. COMPARISON: October 27, 2018. FINDINGS: Telemetry wires overlie the chest. The lungs are well expanded. There is mild chronic interstitial changes without acute infiltrate or mass. There is calcification in the left hilum unchanged from the prior exam. There is no demonstrated pleural abnormality. Normal size heart. Normal mediastinum and elvin. Normal visualized pulmonary arteries. Normal visualized aortic arch and descending thoracic aorta. The thoracic spine is obscured by the mediastinum. There is evidence of kyphoplasty of the lower thoracic vertebral body. Normal visualized ribs, clavicles, and shoulders. There is no demonstrated abnormality of the visualized soft tissue structures of the upper abdomen. RAD/Chest 1 View (Portable) IMPRESSION: No acute cardiopulmonary disease or major interval change. Electronically Signed: Reno Quispe DO at 19:11 EDT Tel [phone], Service support ,
--- NOTE | 2018-11-07 19:00 | ED.VISSUMM ---
- ER Visit Summary Date of Service: 11/07/18 Chief Complaint: Chest pain History of Present Illness: The patient is a 73 M presenting with chest pain. He states the chest pain started 45 minutes prior to arrival. He took one nitro at home with some improvement. EMS was called. He was given additional nitro per EMS with improvement of his pain. He complains of associated nausea, no vomiting. Denies diaphoresis. Complains of shortness of breath. Pain is midsternal with no radiation. He states initially was 10 out of 10. After 2 nitro it was 4 out of 10. Patient was recently started on lisinopril and his losartan was stopped by his primary care physician. He had a stress test on October 27, 2018 which was normal. Physical Examination: Vitals are stable. Patient is afebrile. Alert no acute distress. HEENT exam is unremarkable. Neck is supple. Lungs are clear and equal bilaterally. Heart is regular rate and rhythm. Abdomen is soft nontender nondistended. Extremities are unremarkable. Skin is warm and dry. No focal neurologic deficit. Remainder of exam is unremarkable. Emergency Department Course and Treatment: EKG is sinus rate of 90 with no acute ischemic changes. Chest x-ray shows no acute process. CBC shows white count of 15.6. Chemistries show potassium 2.8, glucose 169. Troponin is negative. He was given potassium oral replacement. He was given aspirin on arrival. On reevaluation, patient is chest pain-free. Discussed with Dr. Deal and the hospitalist. Patient will be admitted for further evaluation. Disposition: Admission Impression: Chest pain This note was generated with Rapportive dictation software. It may contain incorrect words, spelling, and punctuation that were not noted in review of the chart prior to signing ED Disposition - Plan for ED Patient: Referrals: Layo Clifford DO [Primary Care Provider] -
[2018-11-07 19:21] LABS: Absolute Lymphocyte Count 2.28 X10^3/ul (0.83-4.51); Absolute Neutrophil Count 12.3 X10^3/uL (2.0-7.7); Basophil# 0.04 X10^3/uL; Basophil% 0.3 % (0-1); Eosinophil# 0.12 X10^3/uL; Eosinophils% 0.8 % (0-5); Hematocrit 47.1 % (40-54); Hemoglobin 16.2 g/dl (13.0-16.5); Lymphocyte # 2.28 X10^3/ul (4.0); Lymphocyte % 14.6 % (19-41); Mean Corp Hgb Conc 34.4 g/gl (32-36); Mean Corpuscular Hgb 30.7 pg (27.0-32.0); Mean Corpuscular Volume 89.4 fL (80-94); Mean Platelet Vol. 11.3 fl (6.2-12.0); Monocyte# 0.75 X10^3/uL; Monocyte% 4.8 % (0-10); Neutrophil # 12.29 X10^3/uL (2.7-7.7); Neutrophil % 78.9 % (47-70); Platelet Count 273 K/mm3 (150-450); RBC Distribution Width CV 13.6 % (11.6-14.6); RBC Distribution Width SD 44.1 fl (35.1-43.9); Red Blood Count 5.27 M/mm3 (4.6-6.2); White Blood Count 15.6 K/mm3 (4.4-11.0)
[2018-11-07 19:31] LABS: Anion Gap 7 (5-15); BUN 8 mg/dL (7-18); BUN/Creat Ratio 9.4 RATIO (10-20); Calcium,Total 8.8 mg/dL (8.5-10.1); Chloride 103 mmol/L (98-107); Creatinine, Serum 0.85 mg/dL (0.70-1.30); EST Glomerular Filtration Rate 94 mL/min (>60); Est Glom Filt Rate - Afr Amer 113 mL/min (>60); Estimated Creatinine Clearance 76.25 ml/min; Glucose 169 mg/dL (74-106); Potassium 2.8 mmol/L (3.5-5.1); Sodium Level 136 mmol/L (136-145)
[2018-11-07 19:33] LABS: POSITIVE COUNT NO; POSITIVE DIFFERENTIAL NO; POSITIVE MORPHOLOGY NO
[2018-11-07 19:35] VITALS: BP 141/73; PULSE 84; RESP 18; O2SAT 98
[2018-11-07 20:00] VITALS: BP 163/75; PULSE 79; RESP 14; O2SAT 98
[2018-11-07 20:00] LABS: D-Dimer Quantitative (DVT/PE) 0.35 FEU/ug/m (0.27-0.49)
[2018-11-07 21:00] VITALS: BP 170/79; PULSE 85; RESP 14
--- NOTE | 2018-11-07 21:40 | PCM.HP.STD ---
Problem List (1) Chest pain at rest Status: Acute (2) COPD (chronic obstructive pulmonary disease) Status: Chronic Comment: mild (3) HTN (hypertension) Status: Chronic History of Present Illness Date of Admission: 11/07/18 Chief Complaint: chest pain The patient is a 73 year old M with a significant history of hypertension; COPD; PE; obesity; and a leaky heart valve who presents with progressively worsening continues excruciating substernal chest pain that started few hours before his admission. His chest pain relieved somewhat with nitroglycerin that he took at home by himself. Also he received nitroglycerin from the paramedics that also improved his pain. He denies any exacerbating factors to his chest pain. Originally he attributed his chest pain to indigestion but his chest pain persisted beyond what he thought an indigestion will be. He describes chest pain as a sledge hammer going through his chest. Emergency department doctor reported a conversation with battery inspector with cardiology intention to follow patient for possible cardiac cath because of a recent negative stress test.. Patient denies any diaphoresis, nausea or vomiting. His chest pain was nonradiating. While at emergency department patient reported that his chest pain has eased. However he complains of heartburn that started about an hour ago while at emergency department for which reason it was discussed the emergency department doctor to administer GI cocktail. While on the floor patient reported about bubbling feeling in his upper abdomen that he attributes to heartburn and was requesting medication for relief. Patient was recently admitted on 10/27/18 for chest pain and discharge same day after a negative stress test. Past Medical History Past Medical History (Chronic Problems): Chronic Problems Glaucoma (Chronic) Hyperlipidemia (Chronic) Tobacco user (Chronic) Gastroesophageal reflux disease (Chronic) COPD (chronic obstructive pulmonary disease) (Chronic) mild Hx pulmonary embolism (Chronic) HTN (hypertension) (Chronic) Prostate cancer (Chronic) Allergies Penicillins Allergy (Verified 11/07/18 18:35) Unknown Sulfa (Sulfonamide Antibiotics) Allergy (Verified 11/07/18 18:35) Unknown morphine Adverse Reaction (Intermediate, Verified 11/07/18 18:35) Shortness of breath lorazepam Adverse Reaction (Verified 11/07/18 18:35) Other blurry vision Home Medications: Ambulatory Orders Medication Instructions Recorded Amlodipine [Norvasc] 10 mg PO DAILY 07/06/14 Metoprolol(XL)Succ [Toprol Xl 100 mg PO QHS 01/27/14 (Beta Vivien)] Vitamin B Complex 1 each PO DAILY 01/27/14 Timolol Maleate [Timoptic-XE 0.5%] 1 drop EACH EYE QHS 07/28/16 Pantoprazole Sodium [Protonix] 40 mg PO DAILY 06/13/17 Nitroglycerin [Nitrostat] 0.4 mg SUBLINGUAL Q5M PRN 03/05/18 Oxycodone HCl/Acetaminophen 1 tablet PO Q8H PRN PRN 03/05/18 [Percocet 10-325 mg Tablet] Cyanocobalamin (Vitamin B-12) 1,000 mcg SL DAILY 06/24/18 [B-12] Tamsulosin HCl [Flomax] 0.4 mg PO QHS 06/24/18 Loratadine [Claritin] 10 mg PO DAILY 10/27/18 Benzonatate 100 mg PO TID PRN 11/07/18 Lisinopril 20 mg PO QHS 11/07/18 Surgical History: tonsillectomy Lives: Alone Smoking Status: Former smoker - *Family History Maternal History Items: COPD Paternal History Items: Heart Disease - His father at age 50 from massive heart attack. Review of Systems Constitutional: Denies: Chills, Fever, Weight Change HEENT: Denies: Head Aches, Sinus Congestion, Sinus Drainage Cardiovascular: Denies: Chest Pain, Palpitations Respiratory: Denies: Cough, Shortness of breath at rest, Sputum production Gastrointestinal: Denies: Abdominal Pain, Nausea, Vomiting Genitourinary: Denies: Dysuria Musculoskeletal: Denies: Joint Pain, Joint Tenderness Skin: Denies: Rash, Wounds Neurological: Denies: Numbness, Tingling, Focal weakness Psychiatric: Denies: Anxiety, Depression, Homicidal Ideations, Suicidal Ideations Hematologic/ Lymphatic: Denies: Easy Bruising, Easy Bleeding VTE Information - Inpt Only VTE Present on Admission: No VTE Mechan Device Prophylaxis: None VTE Pharm Prophylaxis ordered?: Yes Patient Problems: Active and Suspected Problems Chest pain at rest (Acute) - Physical Exam General: Alert, Oriented x3, Cooperative HEENT: Atraumatic, PERRLA, EOMI, Normocephalic Neck: Supple, No JVD, Negative Carotid Bruits Lungs: Clear to auscultation, Normal air movement Cardiovascular: Regular rate, No murmurs Abdomen: Bowel Sounds Present, Soft, Non Tender Extremities: No edema, Capillary Refill Less than 3 Seconds Skin: No rashes, No breakdown Musculoskeletal: No Tenderness to Palpation of Joints or Extremities Neurological: Cranial nerves II-XII grossly intact Psych/Mental Status: Normal Affect, Appropriate Vital Signs Temp Pulse Resp BP Pulse Ox 98.5 F 79 14 163/75 H 98 11/07/18 18:36 11/07/18 20:00 11/07/18 20:00 11/07/18 20:00 11/07/18 20:00 Oxygen Flow Rate (L/min) 2 Oxygen Delivery Method Nasal Cannula Weight: 95.8 kg Body Mass Index (BMI) 31.1 Laboratory Tests Past 24 Hrs 11/07/18 11/07/18 11/07/18 18:47 18:47 18:47 WBC 15.6 H RBC 5.27 Hgb 16.2 Hct 47.1 MCV 89.4 MCH 30.7 MCHC 34.4 RDW 13.6 RDW Differential 44.1 H Plt Count 273 MPV 11.3 Immature Gran % (Auto) 0.600 Neut % (Auto) 78.9 H Lymph % (Auto) 14.6 L [place] % (Auto) 4.8 Eos % (Auto) 0.8 Baso % (Auto) 0.3 Absolute Neuts (auto) 12.3 H Absolute Lymphs (auto) 2.28 Total Counted Not Reportable D-Dimer Quant (PE/DVT) 0.35 Sodium 136 Potassium 2.8 L Chloride 103 Carbon Dioxide 26.0 Anion Gap 7 BUN 8 Creatinine 0.85 Estim Creat Clear Calc 76.25 Est GFR (MDRD) Af Amer 113 Est GFR (MDRD) Non-Af 94 BUN/Creatinine Ratio 9.4 L Glucose 169 H Calcium 8.8 Troponin I < 0.015 Assessment/Plan All Active Problems Chest pain (Acute) Chest pain at rest (Acute) Near syncope (Acute) Hyperglycemia (Acute) The patient is a 73 year old M with a significant history of hypertension; COPD; PE; obesity; and a leaky heart valve who presents with progressively worsening continues excruciating substernal chest pain after a negative stress test on 10/27/2018. Chest pain Admit to a monitored bed on PCU CXR independently reviewed confirms no acute cardiopulmonary process. EKG independently reviewed confirms nonspecific ST abnormality. Old records reviewed showed EKG with normal sinus rhythm. Received aspirin 324 mg from paramedics. ASA 81 mg p.o. daily ordered SL NTG 0.4 mg prn as needed for chest pain High intensity statin ordered. Initial troponin at the emergency department was negative. Serial cardiac enzymes Stat EKG as needed for chest pain We will keep n.p.o. while Cardiology intend to see patient in a.m. GERD Discussed with ED doctor to give GI cocktail At floor patient still complained of heart burn and mylicon 80MG X1 was given. While n.p.o. we will hold his home Protonix 40 mg daily and escalate his PPI regimen to Protonix 40 mg IV every 12 hours. Hypokalemia On admission his potassium was 2.8. Received 40 mEq of K-Dur at the emergency department. We will give another K-Dur 40 mEq x1. Lactated Ringer's with 40 potassium 75 MLS per hour for 1 L ordered. We will check magnesium Trend BMP. Hypertension On presentation his blood pressure was not within goal Patient reported not taking both his metoprolol and lisinopril scheduled each night. Discussed with nurse to give both medication now. Continue amlodipine daily. PRN labetalol ordered. Trend blood pressures and adjust blood pressure medications. DVT prophylaxis Subcutaneous heparin ordered. Code Visit OBSV E&M: 29025 Initial observation care L3
[2018-11-07] MEDS: Mag Hydrox/Al Hydrox/Simeth 30 ML UDC PO (22:55)
[2018-11-07 23:06] VITALS: BMI 32.5
[2018-11-07 23:19] VITALS: BP 169/83; PULSE 98; RESP 16; TEMP 36.6; O2SAT 95
[2018-11-07 23:22] VITALS: BMI 32.0
[2018-11-08] VITALS (18 sets, daily range): BP systolic 127–160; BP diastolic 65–88; PULSE 71–98; RESP 16–18; TEMP 36.8–37.6; O2SAT 93–97
--- NOTE | 2018-11-08 00:09 | EKG12_ITS ---
Test Reason : CP Blood Pressure : / mmHG Vent. Rate : 090 BPM Atrial Rate : 090 BPM P-R Int : 182 ms QRS Dur : 090 ms QT Int : 362 ms P-R-T Axes : 054 041 062 degrees QTc Int : 442 ms Normal sinus rhythm Nonspecific ST abnormality Abnormal ECG Confirmed by LONI WASHINGTON, FERNANDO ([id number]), image editor MAGALY LYNN ([id number]) on 11/09/2018 9:32:55 AM Referred By: Sanket Haider Confirmed By:FERNANDO IVEY MD
[2018-11-08] MEDS: Lisinopril 20 MG Tablet PO (01:01)
[2018-11-08] MEDS: Atorvastatin Calcium 80 MG Tablet PO (01:02)
[2018-11-08] MEDS: Metoprolol(XL)Succ 100 MG Tablet PO (01:02)
[2018-11-08] MEDS: Timolol 0.5% 5ML OPTH.BTL 1 DRP EACH EYE (01:03)
[2018-11-08] MEDS: Ondansetron 4 MG/2 ML Vial IV (01:22)
[2018-11-08 02:40] LABS: Anion Gap 7 (5-15); BUN 7 mg/dL (7-18); BUN/Creat Ratio 11.7 RATIO (10-20); Calcium,Total 8.2 mg/dL (8.5-10.1); Chloride 108 mmol/L (98-107); EST Glomerular Filtration Rate 141 mL/min (>60); Est Glom Filt Rate - Afr Amer 170 mL/min (>60); Estimated Creatinine Clearance 56.38 ml/min; Glucose 125 mg/dL (74-106); Potassium 3.5 mmol/L (3.5-5.1); Sodium Level 139 mmol/L (136-145)
--- NOTE | 2018-11-08 07:06 | PCM.CONS.C ---
Problem List (1) Chest pain Status: Acute (2) Hyperlipidemia Status: Chronic (3) HTN (hypertension) Status: Chronic (4) PAD (peripheral artery disease) Status: Chronic (5) COPD (chronic obstructive pulmonary disease) Status: Chronic Comment: mild (6) Gastroesophageal reflux disease Status: Chronic Reason for Consult Date of Consultation: 11/08/18 History of Present Illness: The patient is a 73 year old white male with a past history which is included hyperlipidemia, hypertension, PAD/carotid artery disease, COPD, GERD, who is been following with Dr. farias as a software development manager in [place], [place] for concerns of leaky valve and his carotid artery disease who presents for evaluation of recurrent chest discomfort. He has been evaluated in the past both noninvasively and invasively. He has had noninvasive studies performed at [facility] and invasive studies with respect to diagnostic cardiac catheterization performed in [place], [place]. He states he was told he had leaky valve but no underlying CAD. Over time he was diagnosed with a left carotid artery bruit which led to noninvasive studies. He states he does have carotid artery disease but has not required intervention thus far. He also notes he has a history of COPD and GERD. He has presented recently for chest discomfort. He underwent NM protocol which was reportedly negative. He was released home. He did have a follow-up appointment with his software development manager. He was returned for an outpatient exercise tolerance test. This was performed on 10/27/2018 as a pharmacologic stress nuclear imaging study. It was interpreted as negative. He notes yesterday he had abdominal discomfort and felt bloated. He thought this was related to his GERD. However as the day progressed he developed centralized chest pressure. It did not radiate. He is not sure whether or not he was truly nauseated. He did not have any obvious emesis. There is no report of dyspnea or diaphoresis. He presented back to the emergency department for further evaluation. There he had repeat cardiac enzymes which were negative and a repeat ECG which demonstrated sinus rhythm with no acute ECG changes. He was separately brought into the hospital for further cardiovascular evaluation as well as noncardiac evaluation. Today he states he feels better with respect to his chest pressure. However he states he still feels abdominal discomfort and somewhat bloated. He believes there is a difference between the two. He is denied any obvious orthopnea or PND or worsening peripheral pitting edema. There has been no near syncope or syncope. He does state that he has undergone EGD in the past. He believes he was told at one time he may have had ulcer disease. [] Past Medical History Allergies/Adverse Reactions: Allergies Penicillins Allergy (Verified 11/07/18 18:35) Unknown Sulfa (Sulfonamide Antibiotics) Allergy (Verified 11/07/18 18:35) Unknown morphine Adverse Reaction (Intermediate, Verified 11/07/18 18:35) Shortness of breath lorazepam Adverse Reaction (Verified 11/07/18 18:35) Other blurry vision Home Medications: Ambulatory Orders Medication Instructions Recorded RX: Amlodipine [Norvasc] 10 mg PO DAILY 01/27/14 RX: Metoprolol(XL)Succ [Toprol Xl 100 mg PO QHS 01/27/14 (Beta Vivien)] RX: Vitamin B Complex 1 each PO DAILY 01/27/14 RX: Timolol Maleate [Timoptic-XE 1 drop EACH EYE QHS 07/28/16 0.5%] RX: Pantoprazole Sodium [Protonix] 40 mg PO DAILY 06/13/17 RX: Nitroglycerin [Nitrostat] 0.4 mg SUBLINGUAL Q5M PRN 03/05/18 RX: Oxycodone HCl/Acetaminophen 1 tablet PO Q8H PRN PRN 03/05/18 [Percocet 10-325 mg Tablet] RX: Cyanocobalamin (Vitamin B-12) 1,000 mcg SL DAILY 06/24/18 [B-12] RX: Tamsulosin HCl [Flomax] 0.4 mg PO QHS 06/24/18 RX: Loratadine [Claritin] 10 mg PO DAILY 10/27/18 RX: Benzonatate 100 mg PO TID PRN 11/07/18 RX: Lisinopril 20 mg PO QHS 11/07/18 Past Medical History (Chronic Problems): Chronic Problems Glaucoma (Chronic) Hyperlipidemia (Chronic) PAD (peripheral artery disease) (Chronic) Tobacco user (Chronic) Gastroesophageal reflux disease (Chronic) COPD (chronic obstructive pulmonary disease) (Chronic) mild Hx pulmonary embolism (Chronic) HTN (hypertension) (Chronic) Prostate cancer (Chronic) Surgical History: tonsillectomy - *Family History Maternal History Items: COPD Paternal History Items: Heart Disease - His father at age 50 from massive heart attack. Lives: Alone Smoking Status: Former smoker Review of Systems - Review of Systems General: Denies: Fever, Night Sweats, Fatigue Cardiovascular: Reports: Chest Discomfort, Chest Discomfort at Rest, Shortness of Breath. Denies: Orthopnea, PND, Peripheral Edema, Palpitations, Lightheadedness, Dizziness, Near Syncope, Syncope Respiratory: Reports: Shortness of Breath. Denies: Cough, Sputum Production, Hemoptysis Gastrointestinal: Reports: Abdominal Discomfort. Denies: Hematemesis, Hematochezia, Melena Genitourinary: Denies: Dysuria, Hematuria Skin: Denies: Rash Subjectve: This is a 73-year-old white male who appears to be resting comfortably at the moment in the supine position in no acute distress. Objective: Vital Signs Temp Pulse Resp BP Pulse Ox 97.8 F 93 16 160/88 H 95 11/07/18 23:19 11/08/18 01:35 11/08/18 00:05 11/08/18 01:02 11/07/18 23:19 Oxygen Flow Rate (L/min) 2 Oxygen Delivery Method Room Air Weight: 195 lb 12.328 oz Body Mass Index (BMI) 32.5 General: Awake, Alert, Oriented x 3, Cooperative, No Acute Distress HEENT: Atraumatic, Normocephalic, PERRL, EOMI, Sclera Non Icteric Oral: Moist Mucosa Neck: Supple, Good ROM, No JVD Lungs: Clear to auscultation Cardiovascular: Regular Rhythm, Normal S1, Normal S2 Vascular: L Carotid Artery Bruits Abdomen: Bowel Sounds Present, Soft, - - Tenderness to palpation in the epigastric area. Extremities: No Cyanosis, No Clubbing, No edema Neurological: No Focal Motor or Sensory Deficit Psych/Mental Status: Appropriate 11/07/18 18:47: WBC 15.6 H, RBC 5.27, Hgb 16.2, Hct 47.1, MCV 89.4, MCH 30.7, MCHC 34.4, RDW 13.6, RDW Differential 44.1 H, Plt Count 273, MPV 11.3, Immature Gran % (Auto) 0.600, Neut % (Auto) 78.9 H, Lymph % (Auto) 14.6 L, [place] % (Auto) 4.8, Eos % (Auto) 0.8, Baso % (Auto) 0.3, Absolute Neuts (auto) 12.3 H, Total Counted Not Reportable 11/07/18 18:47: D-Dimer Quant (PE/DVT) 0.35 11/07/18 18:47: Sodium 136, Potassium 2.8 L, Chloride 103, Carbon Dioxide 26.0, Anion Gap 7, BUN 8, Creatinine 0.85, Est GFR (MDRD) Af Amer 113, Est GFR (MDRD) Non-Af 94, BUN/Creatinine Ratio 9.4 L, Glucose 169 H, Calcium 8.8, Troponin I < 0.015 11/07/18 23:20: Troponin I 0.030 11/08/18 02:10: Magnesium 2.0, Troponin I 0.024 11/08/18 02:10: Sodium 139, Potassium 3.5, Chloride 108 H, Carbon Dioxide 24.0, Anion Gap 7, BUN 7, Creatinine 0.60 L, Est GFR (MDRD) Af Amer 170, Est GFR (MDRD) Non-Af 141, BUN/Creatinine Ratio 11.7, Glucose 125 H, Calcium 8.2 L Rhythm: Sinus rhythm EKG: Sinus rhythm ECHO: 06/29/2013: Left ventricle normal with an LVEF of 65%; trivial MR/TR; mild aortic valve thickening; trivial AI Stress Test: As noted above Cardiac Cath: Unavailable for review CXR: Preliminary evaluation: No acute cardiopulmonary disease process appreciated: Please see official report Assessment/Plan 1. Chest pain The patient has had recurrent chest pain. He states this is different from his GERD symptoms. He has been undergoing a rule out NM protocol which has been negative thus far. His recent pharmacologic stress nuclear imaging study was interpreted as negative. However he returns with recurrent chest pain that is otherwise unclear as to the etiology and From a cardiac standpoint based upon his history, his cardiovascular risk factors, etc. was felt reasonable the patient be considered for further evaluation with diagnostic cardiac catheterization. The procedure and risks were discussed with him. He was agreeable to this approach. If this is unremarkable for angiographically significant appearing CAD requiring above and beyond medical therapy then he may need to be considered for other etiologies of his chest discomfort including gastrointestinal evaluation based upon his history and other symptoms and physical examination findings. 2. Hyperlipidemia He will need to continue lipid evaluation and care as deemed appropriate. 3. Hypertension He notes his antihypertensive medications have been adjusted recently. His blood pressure has been somewhat elevated. It is unclear as to whether that is playing a role in his ongoing symptoms. He will need further evaluation care of his blood pressure as deemed appropriate. 4. COPD He has a history of COPD. He will need continue evaluation care per internal medicine. 5. GERD He does have a history of GERD. Again he may need further evaluation, whether or not he has underlying CAD, etc., based on his symptoms and physical exam emanation findings with respect to be there is esophagus, gastric system, gallbladder system, etc. Comment: The patient's case has been discussed and reviewed with patient and previously with Dr. Marquez of the emergency department staff. This note was generated using a voice recognition system and there may be incorrect words, spelling or punctuation that were not noted when reviewing the office note prior to saving.
[2018-11-08] MEDS: Aspirin 81 MG TAB.CHEW PO (07:12)
--- NOTE | 2018-11-08 07:13 | CON.PCM_ITS ---
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 He has been evaluated in the past both noninvasively and invasively. He has had noninvasive studies performed at [facility] and invasive studies with respect to diagnostic cardiac catheterization performed in [place], [place]. He states he was told he had leaky valve but no underlying CAD. Over time he was diagnosed with a left carotid artery bruit which led to noninvasive studies. He states he does have carotid artery disease but has not required intervention thus far. He also notes he has a history of COPD and GERD. He has presented recently for chest discomfort. He underwent LA protocol which was reportedly negative. He was released home. He did have a follow-up a ppointment with his limousine driver. He was returned for an outpatient exercise tolerance test. This was performed on 10/27/2018 as a pharmacologic stress nuclear imaging study. It was interpreted as negative. He notes yesterday he had abdominal discomfort and felt bloated. He thought this was related to his GERD. However as the day progressed he developed centralized chest pressure. It did not radiate. He is not sure whether or not he was truly nauseated. He did not have any obvious emesis. There is no report of dyspnea or diaphoresis. He presented back to the emergency department for f urther evaluation. There he had repeat cardiac enzymes which were negative and a repeat ECG which demonstrated sinus rhythm with no acute ECG changes. He was separately brought into the hospital for further cardiovascular evaluation as well as noncardiac evaluation. Today he states he feels better with respect to his chest pressure. However he states he still feels abdominal discomfort and somewhat bloated. He believes there is a difference between the two. He is denied any obvious orthopnea or PND or worsening peripheral pitting edema. There has been no near syncope or syncope. He does state that he has undergone EGD in the past. He believes he was told at one time he may have had ulcer disease. [] Past Medical History Allergies/Adverse Reactions: Allergies Penicillins Allergy (Verified 11/07/18 18:35) Unknown Sulfa (Sulfonamide Antibiotics) Allergy (Verified 11/07/18 18:35) Unknown morphine Adverse Reaction (Intermediate, Verified 11/07/18 18:35) Shortness of breath lorazepam Adverse Reaction (Verified 11/07/18 18:35) Other blurry vision Home Medications: Ambulatory Orders Medication Instructions Recorded RX: Amlodipine [Norvasc] 10 mg PO DAILY 01/27/14 RX: Metoprolol(XL)Succ [Toprol Xl 100 mg PO QHS 01/27/14 (Beta Vivien)] RX: Vitamin B Complex 1 each PO DAILY 01/27/14 RX: Timolol Maleate [Timoptic-XE 1 drop EACH EYE QHS 07/28/16 0.5%] RX: Pantoprazole Sodium [Protonix] 40 mg PO DAILY 06/13/17 RX: Nitroglycerin [Nitrostat] 0.4 mg SUBLINGUAL Q5M PRN 03/05/18 RX: Oxycodone HCl/Acetaminophen 1 tablet PO Q8H PRN PRN 03/05/18 [Percocet 10-325 mg Tablet] RX: Cyanocobalamin (Vitamin B-12) 1,000 mcg SL DAILY 06/24/18 [B-12] RX: Tamsulosin HCl [Flomax] 0.4 mg PO QHS 06/24/18 RX: Loratadine [Claritin] 10 mg PO DAILY 10/27/18 RX: Benzonatate 100 mg PO TID PRN 11/07/18 RX: Lisinopril 20 mg PO QHS 11/07/18 Past Medical History (Chronic Problems): Chronic Problems Glaucoma (Chronic) Hyperlipidemia (Chronic) PAD (peripheral artery disease) (Chronic) Tobacco user (Chronic) Gastroesophageal reflux disease (Chronic) COPD (chronic obstructive pulmonary disease) (Chronic) mild Hx pulmonary embolism (Chronic) HTN (hypertension) (Chronic) Prostate cancer (Chronic) Surgical History: tonsillectomy - *Family History Maternal History Items: COPD Paternal History Items: Heart Disease - His father at age 50 from massive heart attack. Lives: Alone Smoking Status: Former smoker Review of Systems - Review of Systems General: Denies: Fever, Night Sweats, Fatigue Cardiovascular: Reports: Chest Discomfort, Chest Discomfort at Rest, Shortness of Breath. Denies: Orthopnea, PND, Peripheral Edema, Palpitations, Lightheadedness, Dizziness, Near Syncope, Syncope Respiratory: Reports: Shortness of Breath. Denies: Cough, Sputum Production, Hemoptysis Gastrointestinal: Reports: Abdominal Discomfort. Denies: Hematemesis, Hematochezia, Melena Genitourinary: Denies: Dysuria, Hematuria Skin: Denies: Rash Subjectve: This is a 73-year-old white male who appears to be resting comfortably at the moment in the supine position in no acute distress. Objective: Vital Signs Temp Pulse Resp BP Pulse Ox 97.8 F 93 16 160/88 H 95 11/07/18 23:19 11/08/18 01:35 11/08/18 00:05 11/08/18 01:02 11/07/18 23:19 Oxygen Flow Rate (L/min) 2 Oxygen Delivery Method Room Air Weight: 195 lb 12.328 oz Body Mass Index (BMI) 32.5 General: Awake, Alert, Oriented x 3, Cooperative, No Acute Distress HEENT: Atraumatic, Normocephalic, PERRL, EOMI, Sclera Non Icteric Oral: Moist Mucosa Neck: Supple, Good ROM, No JVD Lungs: Clear to auscultation Cardiovascular: Regular Rhythm, Normal S1, Normal S2 Vascular: L Carotid Artery Bruits Abdomen: Bowel Sounds Present, Soft, - - Tenderness to palpation in the epigastric area. Extremities: No Cyanosis, No Clubbing, No edema Neurological: No Focal Motor or Sensory Deficit Psych/Mental Status: Appropriate 11/07/18 18:47: WBC 15.6 H, RBC 5.27, Hgb 16.2, Hct 47.1, MCV 89.4, MCH 30.7, MCHC 34.4, RDW 13.6, RDW Differential 44.1 H, Plt Count 273, MPV 11.3, Immature Gran % (Auto) 0.600, Neut % (Auto) 78.9 H, Lymph % (Auto) 14.6 L, [place] % (Auto) 4.8, Eos % (Auto) 0.8, Baso % (Auto) 0.3, Absolute Neuts (auto) 12.3 H, Total Counted Not Reportable 11/07/18 18:47: D-Dimer Quant (PE/DVT) 0.35 11/07/18 18:47: Sodium 136, Potassium 2.8 L, Chloride 103, Carbon Dioxide 26.0, Anion Gap 7, BUN 8, Creatinine 0.85, Est GFR (MDRD) Af Amer 113, Est GFR (MDRD) Non-Af 94, BUN/Creatinine Ratio 9.4 L, Glucose 169 H, Calcium 8.8, Troponin I < 0.015 11/07/18 23:20: Troponin I 0.030 11/08/18 02:10: Magnesium 2.0, Troponin I 0.024 11/08/18 02:10: Sodium 139, Potassium 3.5, Chloride 108 H, Carbon Dioxide 24.0, Anion Gap 7, BUN 7, Creatinine 0.60 L, Est GFR (MDRD) Af Amer 170, Est GFR (MDRD) Non-Af 141, BUN/Creatinine Ratio 11.7, Glucose 125 H, Calcium 8.2 L Rhythm: Sinus rhythm EKG: Sinus rhythm ECHO: 06/29/2013: Left ventricle normal with an LVEF of 65%; trivial MR/TR; mild aortic valve thickening; trivial AI Stress Test: As noted above Cardiac Cath: Unavailable for review CXR: Preliminary evaluation: No acute cardiopulmonary disease process appreci ated: Please see official report Assessment/Plan 1. Chest pain The patient has had recurrent chest pain. He states this is different from his GERD symptoms. He has been undergoing a rule out LA protocol which has been negative thus far. His recent pharmacologic stress nuclear imaging study was interpreted as negative. However he returns with recurrent chest pain that is otherwise unclear as to the etiology and From a cardiac standpoint based upon his history, his cardiovascular risk factors, etc. was felt reasonable the patient be considered for further evaluation with diagnostic cardiac catheterization. The procedure and risks were discussed with him. He was agreeable to this approach. If this is unremarkable for angiographically significant appearing CAD requiring above and beyond medical therapy then he may need to be considered for other etiologies of his chest discomfort including gastrointestinal evaluation based upon his history and other symptoms and physical examination findings. 2. Hyperlipidemia He will need to continue lipid evaluation and care as deemed appropriate. 3. Hypertension He notes his antihypertensive medications have been adjusted recently. His blood pressure has been somewhat elevated. It is unclear as to whether that is playing a role in his ongoing symptoms. He will need further evaluation care of his blood pressure as deemed appropriate. 4. COPD He has a history of COPD. He will need continue evaluation care per internal medicine. 5. GERD He does have a history of GERD. Again he may need further evaluation, whether or not he has underlying CAD, etc., based on his symptoms and physical exam emanation findings with respect to be there is esophagus, gastric system, gallbladder system, etc. Comment: The patient's case has been discussed and reviewed with patient and previously with Dr. Marquez of the emergency department staff. This note was generated using a voice recognition system and there may be incorrect words, spelling or punctuation that were not noted when reviewing the office note prior to saving.
--- NOTE | 2018-11-08 08:45 | NURSING ---
pt returned from medical laboratory technical officer at this time
[2018-11-08 08:49] LABS: Absolute Lymphocyte Count 1.34 X10^3/ul (0.83-4.51); Absolute Neutrophil Count 12.6 X10^3/uL (2.0-7.7); Basophil# 0.02 X10^3/uL; Basophil% 0.1 % (0-1); Eosinophil# 0.11 X10^3/uL; Eosinophils% 0.7 % (0-5); Hematocrit 42.8 % (40-54); Hemoglobin 14.6 g/dl (13.0-16.5); Lymphocyte # 1.34 X10^3/ul (4.0); Lymphocyte % 8.7 % (19-41); Mean Corp Hgb Conc 34.1 g/gl (32-36); Mean Corpuscular Hgb 31.1 pg (27.0-32.0); Mean Corpuscular Volume 91.1 fL (80-94); Mean Platelet Vol. 11.6 fl (6.2-12.0); Monocyte# 1.16 X10^3/uL; Monocyte% 7.6 % (0-10); Neutrophil # 12.63 X10^3/uL (2.7-7.7); Neutrophil % 82.4 % (47-70); Platelet Count 243 K/mm3 (150-450); RBC Distribution Width CV 13.6 % (11.6-14.6); White Blood Count 15.3 K/mm3 (4.4-11.0)
[2018-11-08 08:50] LABS: POSITIVE COUNT NO; POSITIVE DIFFERENTIAL NO; POSITIVE MORPHOLOGY NO
[2018-11-08] MEDS: Vitamin B Comp W-C Capsule 1 CAP PO (09:43)
[2018-11-08] MEDS: Loratadine 10 MG Tablet PO (09:43)
[2018-11-08] MEDS: Cyanocobalamin 500 MCG Tablet 1000 MCG PO (09:43)
[2018-11-08] MEDS: amLODIPine 10 MG Tablet PO (09:43)
[2018-11-08] MEDS: oxyCODONE 5 MG Tablet 10 MG PO (09:46)
--- NOTE | 2018-11-08 11:13 | DCINST_ITS ---
- Discharge Diagnoses Current Active Problems: Current Active and Chronic Problems Chest pain at rest (Acute) PAD (peripheral artery disease) (Chronic) You will use the following diet at home:: Cardiac Your food should be the consistency of: Regular Discharge Activity: Return to Normal Activity Weight Bearing Status: Weight bearing as tolerated Call your doctor if you observe: Fever of 101 or Higher, Shortness of breath, Dizziness, Fainting spells, Chest pain, Increased palpitations (irregular heartbeat), Uncontrolled pain Additional Instructions: Follow-up with your primary doctor in a week if the symptoms of abdominal bloating continued. You may need to be referred to GI specialist as outpatient. Allergies/Adverse Reactions: Allergies Penicillins Allergy (Verified 11/07/18 18:35) Unknown Sulfa (Sulfonamide Antibiotics) Allergy (Verified 11/07/18 18:35) Unknown morphine Adverse Reaction (Intermediate, Verified 11/07/18 18:35) Shortness of breath lorazepam Adverse Reaction (Verified 11/07/18 18:35) Other blurry vision Medications to take at Discharge Amlodipine [Norvasc] 10 mg PO DAILY 01/27/14 Metoprolol(XL)Succ [Toprol Xl (Beta Vivien)] 100 mg PO QHS 01/27/14 Vitamin B Complex 1 each PO DAILY 01/27/14 Timolol Maleate [Timoptic-XE 0.5%] 1 drop EACH EYE QHS 07/28/16 Pantoprazole Sodium [Protonix] 40 mg PO DAILY 06/13/17 Nitroglycerin [Nitrostat] 0.4 mg SUBLINGUAL Q5M PRN 03/05/18 Oxycodone HCl/Acetaminophen [Percocet 10-325 mg Tablet] 1 tablet PO Q8H PRN PRN 03/05/18 Cyanocobalamin (Vitamin B-12) [B-12] 1,000 mcg SL DAILY 06/24/18 Tamsulosin HCl [Flomax] 0.4 mg PO QHS 06/24/18 Loratadine [Claritin] 10 mg PO DAILY 10/27/18 Benzonatate 100 mg PO TID PRN 11/07/18 Lisinopril 20 mg PO QHS 11/07/18 Primary Care Physician: Layo Clifford DO [Primary Care Provider] - Please follow up with your Primary Care Physician in: 1-2 WEEKS. Test Results: Test results from this visit will be discussed in further detail at your follow- up appointment, if applicable.
--- NOTE | 2018-11-08 12:53 | NURSING ---
pt ambulated in [place] at this time. Rt groin site c/d/i post ambulation. No signs of bleeding or hematoma
--- NOTE | 2018-11-08 13:41 | PCM.DC.SUM ---
Discharge Date and Diagnosis Date of Admission: 11/07/18 Date of Discharge: 11/08/18 - Primary Discharge Diagnosis Active and Suspected Problems #1 atypical chest pain, ACS ruled out. #2 hypokalemia. - Secondary Discharge Diagnosis Chronic Problems Glaucoma (Chronic) Hyperlipidemia (Chronic) PAD (peripheral artery disease) (Chronic) Tobacco user (Chronic) Gastroesophageal reflux disease (Chronic) COPD (chronic obstructive pulmonary disease) (Chronic) mild Hx pulmonary embolism (Chronic) HTN (hypertension) (Chronic) Prostate cancer (Chronic) Hospital Course and Treatment Imaging Results: Clinical Impression(s) from Imaging Studies Chest X-Ray 11/07/18 18:46 IMPRESSION: No acute cardiopulmonary disease or major interval change. Electronically Signed: Reno Quispe DO at 19:11 EDT Tel [phone], Service support , Dr. Monson, cardiology. Operations: None Procedures: Cardiac catheterization, EKG Summary of Care Provided: Patient seen and examined on the day of discharge and appeared to be stable to be discharged home. He states that he had no more chest pain. He complained of mild abdominal bloating and discomfort. He admitted eating some kind of corn from [place] over the last couple of days with lots of volume. He denied fever or chills. He denies constipation or diarrhea. His vital signs are stable. The patient is a 73 year old M admitted because of chest pain for evaluation. His chest pain seemed to be atypical for acute coronary syndrome. His EKG revealed normal sinus rhythm without evidence of acute ischemic changes. His troponin was negative x3. His routine blood work was remarkable for potassium of 2.8 which was replaced and corrected. Chest x-ray showed no acute findings. Cardiology consulted and because patient had recent stress test that was unremarkable, cardiac catheterization recommended. Patient underwent cardiac catheterization that revealed angiographically normal left main coronary artery, 10-25% stenosis of the proximal LAD, mild luminal irregularities of the mid LAD, angiographically normal right coronary artery, normal aortic root and there was no evidence of significant coronary artery atherosclerosis. Patient symptoms of abdominal discomfort and bloating attributed to probable acute gastritis. Patient's vital signs were stable. Patient discharged home in a stable medical condition, discharged on his chronic home medications without any changes, recommended follow-up with PCP in 1-2 weeks. - Physical Exam General: Alert, Oriented x3, Cooperative, No apparent distress HEENT: Atraumatic, PERRLA, EOMI, Normocephalic Oral: Moist Mucosa, No Gingival or Mucosal Lesions/ Ulcerations Neck: Supple, No JVD, Negative Carotid Bruits Lungs: Clear to auscultation, Normal air movement, No rhonchi, No wheeze, No rales Cardiovascular: Regular rate, Regular Rhythm, Normal S1, Normal S2, PMI Normal Abdomen: Bowel Sounds Present, Soft, Non Tender, Non-Distended, No Hepato-splenomegaly, Obese Extremities: No clubbing, No cyanosis Skin: No rashes, No breakdown Lymphatic: No Cervical, Supraclavicular, or Inguinal Adenopathy Neurological: Cranial nerves II-XII grossly intact, Neuro grossly intact Psych/Mental Status: Normal Affect, Appropriate Vital Signs Temp Pulse Resp BP Pulse Ox 98.3 F 77 16 139/69 H 93 11/08/18 12:45 11/08/18 12:45 11/08/18 12:45 11/08/18 12:45 11/08/18 12:45 Oxygen Flow Rate (L/min) 2 Oxygen Delivery Method Room Air Weight: 195 lb 12.328 oz Body Mass Index (BMI) 32.5 Intake and Output for Last 24 Hours 11/06/18 11/07/18 11/08/18 23:59 23:59 23:59 Intake Total 1182 / 1182 Output Total 700 / 700 Balance 482 / 482 Laboratory Tests Past 24 Hrs 11/07/18 11/07/18 11/07/18 18:47 18:47 18:47 WBC 15.6 H RBC 5.27 Hgb 16.2 Hct 47.1 MCV 89.4 MCH 30.7 MCHC 34.4 RDW 13.6 RDW Differential 44.1 H Plt Count 273 MPV 11.3 Immature Gran % (Auto) 0.600 Neut % (Auto) 78.9 H Lymph % (Auto) 14.6 L Foster % (Auto) 4.8 Eos % (Auto) 0.8 Baso % (Auto) 0.3 Absolute Neuts (auto) 12.3 H Absolute Lymphs (auto) 2.28 Total Counted Not Reportable D-Dimer Quant (PE/DVT) 0.35 Sodium 136 Potassium 2.8 L Chloride 103 Carbon Dioxide 26.0 Anion Gap 7 BUN 8 Creatinine 0.85 Estim Creat Clear Calc 76.25 Est GFR (MDRD) Af Amer 113 Est GFR (MDRD) Non-Af 94 BUN/Creatinine Ratio 9.4 L Glucose 169 H Calcium 8.8 Magnesium Troponin I < 0.015 11/07/18 11/08/18 11/08/18 23:20 02:10 02:10 WBC RBC Hgb Hct MCV MCH MCHC RDW RDW Differential Plt Count MPV Immature Gran % (Auto) Neut % (Auto) Lymph % (Auto) Foster % (Auto) Eos % (Auto) Baso % (Auto) Absolute Neuts (auto) Absolute Lymphs (auto) Total Counted D-Dimer Quant (PE/DVT) Sodium 139 Potassium 3.5 Chloride 108 H Carbon Dioxide 24.0 Anion Gap 7 BUN 7 Creatinine 0.60 L Estim Creat Clear Calc 56.38 Est GFR (MDRD) Af Amer 170 Est GFR (MDRD) Non-Af 141 BUN/Creatinine Ratio 11.7 Glucose 125 H Calcium 8.2 L Magnesium 2.0 Troponin I 0.030 0.024 11/08/18 02:10 WBC 15.3 H RBC 4.70 Hgb 14.6 Hct 42.8 MCV 91.1 MCH 31.1 MCHC 34.1 RDW 13.6 RDW Differential 45.0 H Plt Count 243 MPV 11.6 Immature Gran % (Auto) 0.500 Neut % (Auto) 82.4 H Lymph % (Auto) 8.7 L Foster % (Auto) 7.6 Eos % (Auto) 0.7 Baso % (Auto) 0.1 Absolute Neuts (auto) 12.6 H Absolute Lymphs (auto) 1.34 Total Counted Not Reportable D-Dimer Quant (PE/DVT) Sodium Potassium Chloride Carbon Dioxide Anion Gap BUN Creatinine Estim Creat Clear Calc Est GFR (MDRD) Af Amer Est GFR (MDRD) Non-Af BUN/Creatinine Ratio Glucose Calcium Magnesium Troponin I Discharge Activity: Return to Normal Activity Weight Bearing Status: Weight bearing as tolerated Call your doctor if you observe: Fever of 101 or Higher, Shortness of breath, Dizziness, Fainting spells, Chest pain, Increased palpitations (irregular heartbeat), Uncontrolled pain Home Medications: Medications to take at Discharge Amlodipine [Norvasc] 10 mg PO DAILY 01/27/14 Metoprolol(XL)Succ [Toprol Xl (Beta Vivien)] 100 mg PO QHS 01/27/14 Vitamin B Complex 1 each PO DAILY 01/27/14 Timolol Maleate [Timoptic-XE 0.5%] 1 drop EACH EYE QHS 07/28/16 Pantoprazole Sodium [Protonix] 40 mg PO DAILY 06/13/17 Nitroglycerin [Nitrostat] 0.4 mg SUBLINGUAL Q5M PRN 03/05/18 Oxycodone HCl/Acetaminophen [Percocet 10-325 mg Tablet] 1 tablet PO Q8H PRN PRN 03/05/18 Cyanocobalamin (Vitamin B-12) [B-12] 1,000 mcg SL DAILY 06/24/18 Tamsulosin HCl [Flomax] 0.4 mg PO QHS 06/24/18 Loratadine [Claritin] 10 mg PO DAILY 10/27/18 Benzonatate 100 mg PO TID PRN 11/07/18 Lisinopril 20 mg PO QHS 11/07/18 Primary Care Physician: Layo Clifford DO [Primary Care Provider] - Please follow up with your Primary Care Physician in: 1-2 WEEKS. Disposition: Home Minutes spent on discharge:: 25 Patient Condition:: Stable Medical Necessity - Tobacco Use Smoking Status: Former smoker Meaningful Use Info Meaningful Use Diagnoses (Choose all that apply): None applicable Code Visit OBSV E&M: 06615 Observation care discharge
== END 2018-11-08 11:13 | disposition home or self-care (01) ==
LOC: ED 22:07 → PCU 22:41
PROVIDERS: Admitting Provider Hospitalist; Emergency Provider Emergency Medicine; Family Provider Family Medicine; PCP Family Medicine; Referring Provider Hospitalist; Visit Provider Hospitalist
DX: R07.89 Other chest pain (principal); E87.6 Hypokalemia; R11.0 Nausea; I25.10 Atherosclerotic heart disease of native coronary artery without angina pectoris; R06.02 Shortness of breath; I10 Essential (primary) hypertension; J44.9 Chronic obstructive pulmonary disease, unspecified; I73.9 Peripheral vascular disease, unspecified; E66.9 Obesity, unspecified; K21.9 Gastro-esophageal reflux disease without esophagitis; Z68.32 Body mass index [BMI] 32.0-32.9, adult; Z71.3 Dietary counseling and surveillance; Z85.46 Personal history of malignant neoplasm of prostate; Z79.899 Other long term (current) drug therapy; Z86.711 Personal history of pulmonary embolism; Z87.891 Personal history of nicotine dependence
CPT/HCPCS: 36415; 71045; 80048; 83735; 84484; 85025; 85379; 93005; 93458; 96365; 96366; 99152; 99153; 99218; 99285; J7030; J7120; Q9967; A4216; C1769; C1894; G0378; J2405

== ENCOUNTER 2018-12-15 07:31 | Emergency (ER) | payer MEDICARE, MEDICAID, SELFPAY ==
[2018-12-15 07:35] VITALS: BP 192/75; PULSE 82; RESP 13; TEMP 36.4; O2SAT 98; BMI 32.8
--- NOTE | 2018-12-15 07:41 | EKG12_ITS ---
Test Reason : ALLERGIC REACTION Blood Pressure : / mmHG Vent. Rate : 064 BPM Atrial Rate : 064 BPM P-R Int : 208 ms QRS Dur : 090 ms QT Int : 414 ms P-R-T Axes : 062 039 060 degrees QTc Int : 427 ms Normal sinus rhythm Normal ECG Confirmed by LIANNA APONTE ([id number]), manuscript editor ANA MURRY ([id number]) on 12/21/2018 8:44:41 AM Referred By: MARILY Confirmed By:LIANNA APONTE
--- NOTE | 2018-12-15 07:41 | RAD_ITS ---
STUDY: X-RAY CHEST REASON FOR EXAM: Male, 73 years old. Chest discomfort. Cough. TECHNIQUE: PA and lateral views of the chest. COMPARISON: Comparison is made with prior study dated November 07, 2018. FINDINGS: EKG electrodes are seen. Mild increased markings at the lung bases suggestive of bibasilar atelectasis. These have progressed as compared to prior study. There is no demonstrated pleural abnormality. Normal size heart. Normal mediastinum and elvin. Normal visualized pulmonary arteries. There is atherosclerotic calcification of the aortic arch with tortuosity. Prior vertebroplasty of the T11 vertebrae. There is degenerative osteoarthritis of the bilateral shoulders. There is no demonstrated abnormality of the visualized soft tissue structures of the upper abdomen. RAD/Chest PA and Lateral IMPRESSION: Increased linear markings at the lung bases suggestive of a linear atelectasis superimposed on linear scarring. Electronically Signed: Anthony Beyer, at 8:59 EDT , Service support ,
--- NOTE | 2018-12-15 07:45 | ED.VISSUMM ---
- ER Visit Summary Date of Service: 12/15/18 Chief Complaint: General malaise History of Present Illness: The patient is a 73 M presents to the emergency department generalized malaise. The patient was recently taken off of his metoprolol and started on carvedilol 3 days ago. He states that last night, he began to have chills and sweats. He states that he had increased urinary frequency and was feeling just generalized malaise. He thought that he may be having a reaction to his medication. He had been on metoprolol for some time. He states he had no issues with it. He denies any shortness of breath. He denies any chest pain. He had no headache. He is unsure if he had a fever, but was having chills and sweats. He denies any back pain but does admit to some myalgias. Physical Examination: Vital signs reviewed General: Well-nourished, well-developed Head: Normocephalic, atraumatic Eyes: Pupils equal and reactive, extraocular muscles intact Neck, supple, no lymphadenopathy Heart: Regular rate and rhythm Respiratory: No distress, clear bilaterally Abdomen: Soft, nontender, nondistended, no peritoneal signs Back: Nontender Extremities: Nontender, no edema, no cords Skin: Normal color no rash Neuro: Alert and oriented, no focal or lateralizing deficits Test Results: [] Emergency Department Course and Treatment: Broad metabolic work-up was pursued. EKG showed sinus rhythm without acute ischemic change. The patient did have a heart catheterization 3 weeks ago which was normal. Screening labs are obtained were unremarkable. Chest x-ray shows atelectasis but no pneumonia. Urine shows no infection. I do feel this may be intolerance to his new carvedilol. He did fine on his metoprolol. I do feel that placing back on his metoprolol to be the most important plan of care at this time. He is comfortable with this. 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 The patient will be discharged home. Treatment Plan: [] Disposition: Discharge Impression: 1. Medication intolerance This note was generated with [employer] software. It may contain incorrect words, spelling, and punctuation that were not noted in review of the chart prior to signing ED Disposition - Plan for ED Patient: Instructions: ED Drug React Adverse Other Prescriptions: Metoprolol(XL)Succ [Toprol Xl (Beta Vivien)] 100 mg PO DAILY #30 tab Referrals: Layo Clifford DO [Primary Care Provider] - Additional Instructions: Stop the Coreg. Call your steel division supervisor today and let them know that we are going to resume metoprolol as you
[2018-12-15 08:19] LABS: Absolute Neutrophil Count 6.5 X10^3/uL (2.0-7.7); Basophil# 0.03 X10^3/uL; Basophil% 0.3 % (0-1); Eosinophils% 1.1 % (0-5); Hematocrit 45.8 % (40-54); Hemoglobin 15.6 g/dl (13.0-16.5); Lymphocyte % 19.6 % (19-41); Mean Corp Hgb Conc 34.1 g/gl (32-36); Mean Corpuscular Hgb 30.8 pg (27.0-32.0); Mean Corpuscular Volume 90.3 fL (80-94); Mean Platelet Vol. 10.7 fl (6.2-12.0); Monocyte# 0.68 X10^3/uL; Monocyte% 7.4 % (0-10); Neutrophil # 6.54 X10^3/uL (2.7-7.7); Neutrophil % 71.2 % (47-70); Platelet Count 257 K/mm3 (150-450); RBC Distribution Width SD 45.6 fl (35.1-43.9); Red Blood Count 5.07 M/mm3 (4.6-6.2); White Blood Count 9.2 K/mm3 (4.4-11.0)
[2018-12-15 08:28] LABS: POSITIVE COUNT NO; POSITIVE DIFFERENTIAL NO; POSITIVE MORPHOLOGY NO
[2018-12-15 08:30] LABS: Bacteria 0 SEEN /hpf (None Seen); Mucous, Urine 0 SEEN /hpf (<or=2+); Red Blood Cells-Urine 0 SEEN /hpf (0-5); Squamous Epithelial Cells - UA 0 SEEN /hpf (0-5); White Blood Cells 0 SEEN /hpf (0-5)
[2018-12-15 08:34] LABS: ALB/GLOB Ratio 0.9 RATIO (0.9-2.4); AST(SGOT) 12 U/L (15-37); Alanine Aminotransfer ALT/SGPT 27 U/L (16-61); Albumin, Serum 3.6 g/dL (3.2-5.0); Alkaline Phosphatase 76 U/L (45-117); Anion Gap 3 (5-15); BUN 8 mg/dL (7-18); BUN/Creat Ratio 11.7 RATIO (10-20); Calcium,Total 8.5 mg/dL (8.5-10.1); Chloride 108 mmol/L (98-107); Creatinine, Serum 0.69 mg/dL (0.70-1.30); EST Glomerular Filtration Rate 120 mL/min (>60); Est Glom Filt Rate - Afr Amer 145 mL/min (>60); Estimated Creatinine Clearance 56.38 ml/min; Glucose 100 mg/dL (74-106); Potassium 3.5 mmol/L (3.5-5.1); Protein, Total 7.6 g/dL (6.4-8.2); Sodium Level 140 mmol/L (136-145)
[2018-12-15 08:39] LABS: Color, Urine Yellow (Yellow); Glucose, Dipstick Normal (Normal); Ketone-Dipstick Negative (Negative); Leukocyte Esterase-Dipstick Negative /ul (Negative); Nitrite-Dipstick Negative (Negative); Occult Blood-Urine Negative /ul (Negative); Protein-Dipstick 30 mg/dl (Negative); Urine Bilirubin Dipstick Negative (Negative); Urine Clarity Clear (Clear); Urine Urobilinogen Normal (Normal)
[2018-12-15 09:13] VITALS: BP 165/73; PULSE 59; RESP 10; O2SAT 95
== END 2018-12-15 09:18 | disposition home or self-care (01) ==
LOC: ED 08:05
PROVIDERS: Emergency Provider Emergency Medicine; Family Provider Family Medicine; PCP Family Medicine
DX: R53.81 Other malaise (principal); R35.0 Frequency of micturition; T44.7X5A Adverse effect of beta-adrenoreceptor antagonists, initial encounter; Y92.9 Unspecified place or not applicable; I25.10 Atherosclerotic heart disease of native coronary artery without angina pectoris; I10 Essential (primary) hypertension; E78.00 Pure hypercholesterolemia, unspecified; I25.2 Old myocardial infarction; Z87.891 Personal history of nicotine dependence
CPT/HCPCS: 71046; 80053; 81001; 85025; 93005; 99285; J7040

== ENCOUNTER → 2019-02-05 10:19 | Outpatient (CLI) | payer MEDICARE, MEDICAID, SELFPAY ==
[2019-02-05 12:02] LABS: Anion Gap 5 (5-15); BUN 10 mg/dL (7-18); BUN/Creat Ratio 13.5 RATIO (10-20); Calcium,Total 8.8 mg/dL (8.5-10.1); Chloride 105 mmol/L (98-107); Creatinine, Serum 0.74 mg/dL (0.70-1.30); EST Glomerular Filtration Rate 109 mL/min (>60); Est Glom Filt Rate - Afr Amer 132 mL/min (>60); Glucose 101 mg/dL (74-106); PSA,Total- Diagnostic 0.19 ng/mL (0.0-4.0); Potassium 3.2 mmol/L (3.5-5.1); Sodium Level 140 mmol/L (136-145)
== END ==
PROVIDERS: Family Provider Family Medicine; PCP Family Medicine; Referring Provider Urology; Visit Provider Urology
DX: C61 Malignant neoplasm of prostate (principal)
CPT/HCPCS: 36415; 80048; 84153

== ENCOUNTER 2019-03-20 06:59 | Observation (INO) | payer MEDICARE, MEDICAID, SELFPAY ==
[2019-03-20] VITALS (14 sets, daily range): BP systolic 145–176; BP diastolic 70–82; PULSE 60–83; RESP 16–19; TEMP 36.4–37.2; O2SAT 92–100; BMI 33.2; BMI 32.3
--- NOTE | 2019-03-20 07:09 | EKG12_ITS ---
Test Reason : CP Blood Pressure : / mmHG Vent. Rate : 072 BPM Atrial Rate : 072 BPM P-R Int : 212 ms QRS Dur : 092 ms QT Int : 420 ms P-R-T Axes : 061 039 053 degrees QTc Int : 459 ms Sinus rhythm with 1st degree A-V block Otherwise normal ECG Confirmed by LIANNA APONTE ([id number]), material expeditor RADHA BE ([id number]) on 03/27/2019 10:10:19 AM Referred By: Yfn Smith Confirmed By:LIANNA APONTE
--- NOTE | 2019-03-20 07:15 | RAD_ITS ---
STUDY: X-RAY CHEST REASON FOR EXAM: Male, 74 years old. Chest pain TECHNIQUE: Portable chest COMPARISON: 12/15/2018 FINDINGS: There is mild left lower lobe pulmonary opacity. There is also linear left lower lobe scar or subsegmental atelectasis. There is no demonstrated pleural abnormality. Normal size heart. Normal mediastinum and elvin. Normal visualized pulmonary arteries. Normal visualized aortic arch and descending thoracic aorta. There is an old lower thoracic spine compression fracture with prior kyphoplasty. There is no demonstrated abnormality of the visualized soft tissue structures of the upper abdomen. RAD/Chest 1 View (Portable) IMPRESSION: Mild left lower lobe infiltrate and linear subsegmental atelectasis or scar Old lower thoracic spine compression fracture and prior kyphoplasty Electronically Signed: Layo Salazar, at 7:50 EDT Tel , Service support ,
--- NOTE | 2019-03-20 07:20 | ED.VISSUMM ---
- ER Visit Summary Date of Service: 03/20/19 Chief Complaint: Sudden onset of midsternal chest pain History of Present Illness: The patient is a 74 M history of hypertension, prior PE in 2011, prostate cancer, kidney stone, chronic pain from neck and back pain degenerative disc disease. Patient had a recent cardiac cath which he states was negative in October. He is never had an NH or known coronary disease. He is never had a stent. Patient states that around 630 this morning he had sudden onset of midsternal chest pain that did not radiate. He has had prior pain like this before. He was given sublingual nitro that he took 1 of his own into by the squad along with aspirin and his pain is almost completely gone. He denies any recent exertional dyspnea or exertional chest pain. No leg pain or swelling. No hemoptysis. Last time he was hospitalized was in October. Physical Examination: Older male no acute distress. Vital signs are stable and afebrile. His pulse ox is 100% on 2 L. H EENT exam unremarkable. Neck nontender. Lungs clear to auscultation bilaterally. Heart regular rhythm rate about 81 no murmur. Chest wall nontender. Abdomen is soft and nontender. Normal bowel sounds no pulsatile mass. No peritoneal signs. Patient moving all 4 extremities. Calves are nontender without edema or cords. Dorsi and plantar flexion intact. 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 Equal symmetrical radial pulses. Neurologically is awake and alert with no focal motor deficits. Test Results: EKG shows a sinus rhythm with first-degree AV block with a heart rate of 72. No acute signs of NH no ischemia. Chest x-ray shows chronic changes no acute process. CBC unremarkable white count 8. Hemoglobin 16. Electrolytes unremarkable potassium 3.2. Normal creatinine and gap. Troponin normal. Troponin III hours after the first did go up to 0.058. Repeat EKG done at 11:20 AM shows sinus rhythm with no acute signs of NH or ischemia and unchanged infarct. Emergency Department Course and Treatment: Patient will undergo cardiac work-up. He is already received aspirin and nitro by squad. P exam the patient is doing well at 9 AM. He is currently pain-free. And I have gone over all the test results. He will have a 3-hour troponin redrawn by nursing staff. I did review his most recent cardiac catheterization from October done at this facility. He had minimal irregularity and disease. Treatment Plan: Due to his rise in his troponin, I spoke to the hospitalist about admission and further evaluation. Disposition: Discharge Impression: Acute chest pain uncertain etiology This note was generated with [employer] dictation software. It may contain incorrect words, spelling, and punctuation that were not noted in review of the chart prior to signing ED Disposition - Plan for ED Patient: Referrals: Layo Clifford DO [Primary Care Provider] -
[2019-03-20 07:26] LABS: Absolute Lymphocyte Count 2.53 X10^3/uL (0.83-4.51); Absolute Neutrophil Count 5.6 X10^3/uL (2.0-7.7); Basophil# 0.04 X10^3/uL; Basophil% 0.4 % (0-1); Eosinophil# 0.18 X10^3/uL; Hematocrit 47.6 % (40-54); Lymphocyte # 2.53 X10^3/ul (4.0); Lymphocyte % 28.3 % (19-41); Mean Corp Hgb Conc 33.6 g/dL (32-36); Mean Corpuscular Hgb 30.1 pg (27.0-32.0); Mean Corpuscular Volume 89.5 fL (80-94); Mean Platelet Vol. 10.8 fl (6.2-12.0); Monocyte# 0.53 X10^3/uL; Monocyte% 5.9 % (0-10); NRBC Flagged by Analyzer 0 % (0-5); Neutrophil # 5.58 X10^3/uL (2.7-7.7); Neutrophil % 62.5 % (47-70); Platelet Count 234 K/mm3 (150-450); RBC Distribution Width CV 13.8 % (11.6-14.6); RBC Distribution Width SD 45.3 fl (35.1-43.9); Red Blood Count 5.32 M/mm3 (4.6-6.2); White Blood Count 8.9 K/mm3 (4.4-11.0)
[2019-03-20 07:43] LABS: Anion Gap 7 (5-15); BUN 11 mg/dL (7-18); BUN/Creat Ratio 12.8 RATIO (10-20); Calcium,Total 8.9 mg/dL (8.5-10.1); Chloride 108 mmol/L (98-107); Creatinine, Serum 0.86 mg/dL (0.70-1.30); EST Glomerular Filtration Rate 92 mL/min (>60); Est Glom Filt Rate - Afr Amer 112 mL/min (>60); Estimated Creatinine Clearance 64.56 ml/min; Glucose 138 mg/dL (74-106); Potassium 3.2 mmol/L (3.5-5.1); Sodium Level 141 mmol/L (136-145)
--- NOTE | 2019-03-20 11:06 | EKG12_ITS ---
Test Reason : CP REPEAT Blood Pressure : / mmHG Vent. Rate : 067 BPM Atrial Rate : 067 BPM P-R Int : 220 ms QRS Dur : 088 ms QT Int : 410 ms P-R-T Axes : 061 039 058 degrees QTc Int : 433 ms Sinus rhythm with sinus arrhythmia with 1st degree A-V block Otherwise normal ECG Confirmed by LIANNA APONTE ([id number]), assignment editor RADHA BE ([id number]) on 03/27/2019 10:09:53 AM Referred By: Yfn Smith Confirmed By:LIANNA APONTE
--- NOTE | 2019-03-20 11:27 | HP.PCM_ITS ---
Problem List (1) Chest pain at rest Status: Acute (2) Hyperglycemia Status: Acute (3) Near syncope Status: Inactive (4) COPD (chronic obstructive pulmonary disease) Status: Chronic Comment: mild (5) Gastroesophageal reflux disease Status: Chronic (6) Glaucoma Status: Chronic (7) HTN (hypertension) Status: Chronic (8) Hx pulmonary embolism Status: Chronic (9) Hyperlipidemia Status: Chronic (10) PAD (peripheral artery disease) Status: Chronic (11) Prostate cancer Status: Chronic (12) Tobacco user Status: Chronic History of Present Illness Date of Admission: 03/20/19 Chief Complaint: Chest pain The patient is a 74 year old M with history of hypertension, PE in 2012, prostate cancer other comorbidities came to ER with chest pain that this started after he woke up. Chest pain is localized midsternal felt like someone had punched him without radiation. Associated with mild shortness of breath but no dizziness, near-syncope or syncope. Patient also has obstructive sleep apnea and follows Dr. Jain and has been using CPAP for last 2 months. He felt very uncomfortable and was trying to remove CPAP last night and could not sleep. In ED, EKG shows normal sinus rhythm at 67 bpm with sinus arrhythmia type I AV block. CT interval 220 ms. First troponin normal second elevated, 0.058. Mild hypokalemia, K 3.2. Past Medical History Past Medical History (Chronic Problems): Chronic Problems Glaucoma (Chronic) Hyperlipidemia (Chronic) PAD (peripheral artery disease) (Chronic) Tobacco user (Chronic) Gastroesophageal reflux disease (Chronic) COPD (chronic obstructive pulmonary disease) (Chronic) mild Hx pulmonary embolism (Chronic) HTN (hypertension) (Chronic) Prostate cancer (Chronic) Allergies Penicillins Allergy (Verified 03/20/19 07:00) Unknown Sulfa (Sulfonamide Antibiotics) Allergy (Verified 03/20/19 07:00) Unknown morphine Adverse Reaction (Intermediate, Verified 03/20/19 07:00) Shortness of breath lorazepam Adverse Reaction (Verified 03/20/19 07:00) Other blurry vision Home Medications: Ambulatory Orders Medication Instructions Recorded Amlodipine [Norvasc] 10 mg PO DAILY 01/27/14 Metoprolol(XL)Succ [Toprol Xl 50 mg PO QHS 01/27/14 (Beta Vivien)] Vitamin B Complex 1 each PO DAILY 01/27/14 Timolol Maleate [Timoptic-XE 0.5%] 1 drop EACH EYE QHS 07/28/16 Pantoprazole Sodium [Protonix] 40 mg PO DAILY 06/13/17 Nitroglycerin (INPATIENT USE) 0.4 mg SUBLINGUAL Q5M PRN 03/05/18 [Nitrostat] Cyanocobalamin (Vitamin B-12) 1,000 mcg SL DAILY 06/24/18 [B-12] Tamsulosin HCl [Flomax] 0.4 mg PO QHS 06/24/18 Loratadine [Claritin] 10 mg PO DAILY 10/27/18 Metoprolol(XL)Succ [Toprol Xl 100 mg PO DAILY #30 tab 12/15/18 (Beta Vivien)] Bimatoprost 0.01% [Lumigan 0.01%] 1 drp EACH EYE QHS 03/20/19 Cholecalciferol (Vitamin D3) 2,000 unit PO DAILY 03/20/19 [Vitamin D3] Furosemide [Lasix] 20 mg PO DAILY 03/20/19 Potassium Chloride [Klor-Con M20] 20 meq PO DAILY 03/20/19 Surgical History: tonsillectomy Psychiatric History: No pertinent psych hx, - - He has no hx of anxiety but his BP goes up with any stressor. He is afraid to go home even though the work up in the ER is negative. When the EMT's picked him up at his house his BP was over 200 he says. It was 173/91 with a HR of 103 when he initially presented to the ER. Smoking Status: Former smoker - *Family History Maternal History Items: COPD Paternal History Items: Heart Disease - His father at age 50 from massive heart attack. Review of Systems Constitutional: Denies: Chills, Fever, Weight Change HEENT: Denies: Head Aches, Sinus Congestion, Sinus Drainage Cardiovascular: Reports: Chest Pain. Denies: Palpitations Respiratory: Reports: Shortness of Breath. Denies: Cough, Shortness of breath at rest, Sputum production Gastrointestinal: Denies: Abdominal Pain, Nausea, Vomiting Genitourinary: Denies: Dysuria, Frequency, Urgency Musculoskeletal: Reports: Joint stiffness, Neck Pain, Shoulder Pain. Denies: Joint Pain, Joint Tenderness Skin: Denies: Rash, Wounds Neurological: Denies: Numbness, Tingling, Focal weakness Psychiatric: Denies: Anxiety, Depression, Homicidal Ideations, Suicidal Ideations Hematologic/ Lymphatic: Denies: Easy Bruising, Easy Bleeding VTE Information - Inpt Only VTE Present on Admission: No VTE Mechan Device Prophylaxis: None VTE Pharm Prophylaxis ordered?: Yes - Physical Exam General: Alert, Oriented x3, Cooperative HEENT: Atraumatic, PERRLA, EOMI, Normocephalic Neck: Supple, No JVD, Negative Carotid Bruits Lungs: Clear to auscultation, No rhonchi, No wheeze, No rales, Diminished Cardiovascular: Regular rate, Regular Rhythm, Normal S1, Normal S2, No murmurs Abdomen: Bowel Sounds Present, Soft, Non Tender, Non-Distended Extremities: Capillary Refill Less than 3 Seconds, Edema - Mild ankle edema Skin: No rashes, No breakdown Musculoskeletal: No Tenderness to Palpation of Joints or Extremities, Arthritic Changes Neurological: Cranial nerves II-XII grossly intact, Deep Tendon Reflexes 2+/4 and Symmetrical, Neuro grossly intact, Motor Exam 5/5 strength throughout Psych/Mental Status: Normal Affect, Appropriate Vital Signs Temp Pulse Resp BP Pulse Ox 97.6 F L 83 18 166/80 H 97 03/20/19 07:00 03/20/19 11:23 03/20/19 11:23 03/20/19 11:23 03/20/19 11:23 Oxygen Flow Rate (L/min) 2 Oxygen Delivery Method Nasal Cannula Weight: 199 lb 11.821 oz Body Mass Index (BMI) 33.2 Laboratory Tests Past 24 Hrs 03/20/19 03/20/19 03/20/19 07:10 07:10 10:20 WBC 8.9 RBC 5.32 Hgb 16.0 Hct 47.6 MCV 89.5 MCH 30.1 MCHC 33.6 RDW Std Deviation 45.3 H RDW Coeff of Suki 13.8 Plt Count 234 MPV 10.8 Immature Gran % (Auto) 0.900 Neut % (Auto) 62.5 Lymph % (Auto) 28.3 [place] % (Auto) 5.9 Eos % (Auto) 2.0 Baso % (Auto) 0.4 Absolute Neuts (auto) 5.6 Absolute Lymphs (auto) 2.53 Nucleated RBC % 0 Sodium 141 Potassium 3.2 L Chloride 108 H Carbon Dioxide 26.0 Anion Gap 7 BUN 11 Creatinine 0.86 Estim Creat Clear Calc 64.56 Est GFR (MDRD) Af Amer 112 Est GFR (MDRD) Non-Af 92 BUN/Creatinine Ratio 12.8 Glucose 138 H Calcium 8.9 Troponin I < 0.015 0.058 H Assessment/Plan All Active Problems Chest pain at rest (Acute) Hyperglycemia (Acute) The patient is a 74 year old M with history of hypertension, PE in 2011, prostate cancer other comorbidities came to ER with chest pain that this started after he woke up. Chest pain is localized midsternal felt like someone had punched him without radiation. Associated with mild shortness of breath but no dizziness, near-syncope or syncope. Patient also has obstructive sleep apnea and follows Dr. Jain and has been using CPAP for last 2 months. He felt very uncomfortable and was trying to remove CPAP last night and could not sleep. In ED, EKG shows normal sinus rhythm at 67 bpm with sinus arrhythmia type I AV block. CT interval 220 ms. First troponin normal second elevated, 0.058. Mild hypokalemia, K 3.2. 1. Atypical chest pain: Patient had been about 4 times since June 2018 for chest pain. Last time he had diagnostic cardiac cath and reported EF 65% with normal LV size, wall motion and systolic function. Mild [place] multivessel coronary artery disease, proximal LAD 10 to 25% recommended medical therapy. This time, unclear whether related to hypoxia provoked chest pain. Cycle troponin. 2D echo ordered. BNP ordered. 2. GERD: Patient had EGD about 5 to 10 years ago. Does not remember EGD finding but gets heartburn. On Protonix daily. Will. 3. Hypokalemia on Lasix: Patient has mild ankle edema. Potassium being replaced. Monitor electrolytes. 4. Hypertension: Blood pressure is elevated. On amlodipine. Lisinopril 5 mg daily added. 5. Other comorbidities include prostate cancer, glaucoma, history of PE and obstructive sleep apnea on CPAP: Home medication reconciliation done. Continue CPAP. DVT prophylaxis: On Lovenox 40 mg subcu daily Clinical Impression(s) from Imaging Studies Chest X-Ray 03/20/19 07:15 IMPRESSION: Mild left lower lobe infiltrate and linear subsegmental atelectasis or scar Old lower thoracic spine compression fracture and prior kyphoplasty Laboratory Results 03/20/19 07:10: WBC 8.9, RBC 5.32, Hgb 16.0, Hct 47.6, MCV 89.5, MCH 30.1, MCHC 33.6, RDW Std Deviation 45.3 H, RDW Coeff of Suki 13.8, Plt Count 234, MPV 10.8, Immature Gran % (Auto) 0.900, Neut % (Auto) 62.5, Lymph % (Auto) 28.3, [place] % (Auto) 5.9, Eos % (Auto) 2.0, Baso % (Auto) 0.4, Absolute Neuts (auto) 5.6, Absolute Lymphs (auto) 2.53, Nucleated RBC % 0 03/20/19 07:10: Sodium 141, Potassium 3.2 L, Chloride 108 H, Carbon Dioxide 26.0, Anion Gap 7, BUN 11, Creatinine 0.86, Estim Creat Clear Calc 64.56, Est GFR (MDRD) Af Amer 112, Est GFR (MDRD) Non-Af 92, BUN/Creatinine Ratio 12.8, Glucose 138 H, Calcium 8.9, Troponin I < 0.015 03/20/19 07:10: B-Natriuretic Peptide Pending 03/20/19 10:20: Troponin I 0.058 H Code Visit OBSV E&M: 49615 Initial observation care L3
--- NOTE | 2019-03-20 12:39 | ECHOCS_ITS ---
Reason For Study: Chest pain Procedure This was a 2D Doppler, Color Flow transthoracic echocardiogram. The study was technically difficult. Contrast injection was performed. Exam performed portable in patient room. Left Ventricle Normal LV size. Left ventricular systolic function is normal. The estimated ejection fraction is 65 %. Diastolic function is indeterminate. No regional wall motion abnormalities noted. Right Ventricle Mildly dilated right ventricle. Normal systolic function. Atria Normal left atrium. Normal right atrium. No doppler evidence for ASD. Mitral Valve There is mild mitral annular calcification. Normal mitral valve. Trivial mitral valve insufficiency. Tricuspid Valve Normal tricuspid valve. Trivial tricuspid valve insufficiency. Right ventricular systolic pressure estimated to be 31 mmHg. Aortic Valve Trisinus/trileaflet aortic valve. Mild focal aortic valve calcification. Trivial aortic valve insufficiency. Pulmonic Valve The pulmonic valve is not well visualized. Great Vessels Normal sized aortic root. Pericardium/Pleural No pericardial effusion. Medication Diluted definity 1.5ml given slow IV push to enhance endocardial definition. MMode/2D Measurements & Calculations LVIDd: 3.6 cm IVSd: 1.4 cm Ao root diam: 3.3 cm LVIDs: 2.2 cm LVPWd: 1.2 cm RVDd: 3.3 cm FS: 40.6 % LAV(MOD-bp): 46.7 ml LA A4 area: 16.7 cm2 LA dimension(2D): 4.2 cm LAV(MOD-bp) Indexed: 23.6 ml/m2 LAV(MOD-sp2): 46.3 ml LAV(MOD-sp4): 43.8 ml RA A4 area: 17.6 cm2 Doppler Measurements & Calculations MV E max juan alberto: 91.0 cm/sec Lat Peak E' Juan Alberto: 7.4 cm/sec Med Peak E' Juan Alberto: 6.7 cm/sec MV A max juan alberto: 100.8 cm/sec E/E' lat: 12.2 E/E' med: 13.5 MV E/A: 0.90 Ao V2 max: 113.8 cm/sec LV V1 max: 99.5 cm/sec PA V2 max: 86.2 cm/sec Ao max P.2 mmHg LV V1 max P.0 mmHg TR max juan alberto: 263.7 cm/sec TR max P.8 mmHg Interpretation Summary The study was technically difficult. Contrast injection was performed. Left ventricular systolic function is normal. The estimated ejection fraction is 65 %. Mildly dilated right ventricle. There is mild mitral annular calcification. Trivial mitral valve insufficiency. Trivial tricuspid valve insufficiency. Mild focal aortic valve calcification. Trivial aortic valve insufficiency. Right ventricular systolic pressure estimated to be 31 mmHg. Diastolic function is indeterminate. Ordering Physician: Yfn Smith Referring Physician: Layo Clifford Performed By: Manuel, Aurelia, RDCS
[2019-03-20] MEDS: Enoxaparin 40 MG/0.4 ML Syringe SC (14:03)
--- NOTE | 2019-03-20 15:00 | EKG12_ITS ---
Test Reason : CP Blood Pressure : / mmHG Vent. Rate : 066 BPM Atrial Rate : 066 BPM P-R Int : 208 ms QRS Dur : 086 ms QT Int : 400 ms P-R-T Axes : 065 039 051 degrees QTc Int : 419 ms Normal sinus rhythm Normal ECG Confirmed by ADÁN WASHINGTON, RIAZ ([id number]), editor managing director RADHA BE ([id number]) on 03/27/2019 12:02:26 PM Referred By: Yfn Smith Confirmed By:RIAZ MCCAIN MD
[2019-03-20] MEDS: Acetaminophen 325 MG Tablet 650 MG PO (15:18)
--- NOTE | 2019-03-20 18:45 | NURSING ---
REVIEWED SERGIO Jiménez'S CHARTING.
[2019-03-20] MEDS: Latanoprost 0.005% 1 Bottle 1 DRP EACH EYE (21:19)
[2019-03-20] MEDS: Timolol 0.5% 5ML OPTH.BTL 1 DRP EACH EYE (21:19)
[2019-03-20] MEDS: Tamsulosin HCl 0.4 MG Capsule PO (21:19)
[2019-03-20] MEDS: Metoprolol(XL)Succ 50 MG Tablet PO (21:19)
[2019-03-21] VITALS (7 sets, daily range): BP systolic 139–153; BP diastolic 65–80; PULSE 52–76; RESP 16–18; TEMP 36.4–36.6; O2SAT 92–96
[2019-03-21] MEDS: Acetaminophen 325 MG Tablet 650 MG PO (02:39)
[2019-03-21 06:26] LABS: ALB/GLOB Ratio 0.8 RATIO (0.9-2.4); AST(SGOT) 18 U/L (15-37); Alanine Aminotransfer ALT/SGPT 28 U/L (16-61); Albumin, Serum 3.2 g/dL (3.2-5.0); Alkaline Phosphatase 71 U/L (45-117); Anion Gap 7 (5-15); BUN 9 mg/dL (7-18); BUN/Creat Ratio 13.2 RATIO (10-20); Calcium,Total 8.4 mg/dL (8.5-10.1); Chloride 109 mmol/L (98-107); Cholesterol 146 mg/dL (200); Creatinine, Serum 0.68 mg/dL (0.70-1.30); EST Glomerular Filtration Rate 121 mL/min (>60); Est Glom Filt Rate - Afr Amer 146 mL/min (>60); Estimated Creatinine Clearance 55.52 ml/min; Globulin 3.9 g/dL (2.2-4.2); Glucose 100 mg/dL (74-106); High Density Lipoprotein 30 mg/dL; Protein, Total 7.1 g/dL (6.4-8.2); Sodium Level 142 mmol/L (136-145); Thyroid Stim Hormone (TSH) 1.48 uIU/mL (0.358-3.74); Triglycerides 123 mg/dL; Very Low Density Lipoprotein 25 mg/dL (5-40)
--- NOTE | 2019-03-21 08:37 | CT_ITS ---
STUDY: CTA CHEST REASON FOR EXAM: Male, 74 years old. Shortness of breath. History of pulmonary embolism. RADIATION DOSAGE (If Supplied By Facility): CTDIvol = ( 13.03 ) mGy, DLP = ( 509.97 ) mGycm TECHNIQUE: The examination was performed with the intravenous administration of 100 IV Isovue 370. Post-processing of the angiographic images was performed, with multiplanar reformation and 3D reconstruction. Individualized dose optimization techniques were used for this CT. COMPARISON: Comparison is made with prior study dated January 27, 2014. FINDINGS: Normal enhancement of the main pulmonary artery and right and left pulmonary arteries. Normal enhancement of the bilateral peripheral pulmonary arteries. There is no demonstrated pulmonary embolism. Normal thoracic aorta and visualized great vessels. There is no demonstrated aortic dissection. Normal heart and pericardium. Normal mediastinum. Normal hilar regions. Normal visualized trachea and bronchi. The lungs are well expanded. Mild degree of emphysematous changes. Mild degree of linear scarring in the posterior segment of the right upper lobe as well as at the lung bases with subpleural blebs. Mild degree of bronchiectasis in the lower lobes. Normal pleura. Normal chest wall structures. There are degenerative changes of thoracic spine. Prior vertebroplasty of a lower dorsal vertebrae. Small hiatal hernia. Stable cysts in the upper aspects of both kidneys more prominent on the left side measuring 3.2 cm x [address]/CTA Chest W/WO Contrast IMPRESSION: No evidence of pulmonary embolism. Findings in keeping with mild scarring at the lung bases. Bilateral renal cysts. Electronically Signed: Anthony Beyer, at 9:52 EDT , Service support ,
[2019-03-21] MEDS: Loratadine 10 MG Tablet PO (08:57)
[2019-03-21] MEDS: Pantoprazole Sodium 40 MG Tablet PO (08:57)
[2019-03-21] MEDS: Metoprolol(XL)Succ 100 MG Tablet PO (08:57)
[2019-03-21] MEDS: amLODIPine 10 MG Tablet PO (08:57)
[2019-03-21] MEDS: Polyethylene Glycol 3350 17 GM PACKET PO (08:58)
[2019-03-21] MEDS: Enoxaparin 40 MG/0.4 ML Syringe SC (08:58)
[2019-03-21] MEDS: Timolol 0.5% 5ML OPTH.BTL 1 DRP EACH EYE (08:58)
--- NOTE | 2019-03-21 11:08 | DCINST_ITS ---
You will use the following diet at home:: Cardiac Your food should be the consistency of: Regular Discharge Activity: May Not Drive Call your doctor if you observe: Fever of 101 or Higher, Numbness or Tingling, Inability to urinate, Inability to have a bowel movement, Shortness of breath, Dizziness, Fainting spells, Swelling in the ankles, Chest pain, Prolonged hiccoughing, Increased palpitations (irregular heartbeat), Calf discomfort, Uncontrolled pain Allergies/Adverse Reactions: Allergies Penicillins Allergy (Verified 03/20/19 07:00) Unknown Sulfa (Sulfonamide Antibiotics) Allergy (Verified 03/20/19 07:00) Unknown morphine Adverse Reaction (Intermediate, Verified 03/20/19 07:00) Shortness of breath lorazepam Adverse Reaction (Verified 03/20/19 07:00) Other blurry vision Medications to take at Discharge Amlodipine [Norvasc] 10 mg PO DAILY 01/27/14 Vitamin B Complex 1 each PO DAILY 01/27/14 Timolol Maleate [Timoptic-XE 0.5%] 1 drop EACH EYE QHS 07/28/16 Pantoprazole Sodium [Protonix] 40 mg PO DAILY 06/13/17 Nitroglycerin (INPATIENT USE) [Nitrostat] 0.4 mg SUBLINGUAL Q5M PRN 03/05/18 Cyanocobalamin (Vitamin B-12) [B-12] 1,000 mcg SL DAILY 06/24/18 Tamsulosin HCl [Flomax] 0.4 mg PO QHS 06/24/18 Loratadine [Claritin] 10 mg PO DAILY 10/27/18 Metoprolol(XL)Succ [Toprol Xl (Beta Vivien)] 100 mg PO DAILY #30 tab 12/15/18 Bimatoprost 0.01% [Lumigan 0.01%] 1 drp EACH EYE QHS 03/20/19 Cholecalciferol (Vitamin D3) [Vitamin D3] 2,000 unit PO DAILY 03/20/19 Furosemide [Lasix] 20 mg PO DAILY 03/20/19 Oxycodone HCl/Acetaminophen [Oxycodone-Acetaminophen 10-325] 5 - 10 mg PO BID 03/20/19 Potassium Chloride [Klor-Con M20] 20 meq PO DAILY 03/20/19 Simvastatin 20 mg PO QHS 03/20/19 Zolpidem Tartrate [Ambien] 10 mg PO QHS PRN 03/20/19 Primary Care Physician: Layo Clifford DO [Primary Care Provider] - Please follow up with your Primary Care Physician in: in 2 weeks Test Results: Test results from this visit will be discussed in further detail at your follow- up appointment, if applicable. Please Follow Up With: Layo Jain MD When: Right ventricle dialted. COPD? in 3-4 weeks
--- NOTE | 2019-03-21 11:10 | DS.PCM_ITS ---
Discharge Date and Diagnosis Date of Admission: 03/20/19 Date of Discharge: 03/21/19 - Secondary Discharge Diagnosis Chronic Problems Glaucoma (Chronic) Hyperlipidemia (Chronic) PAD (peripheral artery disease) (Chronic) Tobacco user (Chronic) Gastroesophageal reflux disease (Chronic) COPD (chronic obstructive pulmonary disease) (Chronic) mild Hx pulmonary embolism (Chronic) HTN (hypertension) (Chronic) Prostate cancer (Chronic) Hospital Course and Treatment Imaging Results: 03/21/19 08:37 CTA Chest W/WO Contrast [CT] Urgent Operations: None Summary of Care Provided: [] The patient is a 74 year old M with history of hypertension, PE in 2011, prostate cancer other comorbidities came to ER with chest pain that this started after he woke up. Chest pain is localized midsternal felt like someone had punched him without radiation. Associated with mild shortness of breath but no dizziness, near-syncope or syncope. Patient also has obstructive sleep apnea and follows Dr. Jain and has been using CPAP for last 2 months. He felt very uncomfortable and was trying to remove CPAP last night and could not sleep. In ED, EKG shows normal sinus rhythm at 67 bpm with sinus arrhythmia type I AV block. IN interval 220 ms. First troponin normal second elevated, 0.058. Mild hypokalemia, K 3.2. 1. Atypical chest pain; exact etiology unclear but acute coronary syndrome and PE ruled out: The patient had diagnostic cardiac cath in 2018 and reported EF 65% with normal LV size, wall motion and systolic function. Mild [place] multivessel coronary artery disease, proximal LAD 10 to 25% recommended medical therapy. BNP 11. Last troponin normal, therefore middle elevated troponin 0.058 may be error. Echo was done and shows right ventricle mildly dilated with normal systolic function, suggestive of mild right-sided heart failure. Patient has leg swelling on Lasix at home. EF 65%. No regional wall motion abnormality. Normal LV systolic function. Trivial TR, RVSP 31 mmHg. Normal left and right atria. It is unclear whether mild RV dilatation is old or new as he had PE in 2012. CTPA was further done and is negative for acute PE. 2. GERD: Patient had EGD about 5 to 10 years ago. Does not remember EGD finding but gets heartburn. On Protonix daily. Follow with PCP. He might need repeat EGD as outpatient. 3. Hypokalemia on Lasix: Patient has mild ankle edema. Repeat electrolytes are normal. Lasix was held as the patient got contrast and perfused with IV fluid normal saline. 4. Hypertension: Blood pressure is elevated. On amlodipine. Lisinopril 5 mg daily was restarted and a prescription sent to pharmacy. Continue metoprolol. 5. Other comorbidities include prostate cancer, glaucoma, history of PE, dyslipidemia and obstructive sleep apnea on CPAP: Home medication reconciliation done. Continue CPAP. Lipid profile reported as LDL 91, HDL 30. Continue simvastatin. 6. Prediabetes: A1c 6.0. Diet control and weight control advised. Recommended 1600 ADA diet. DVT prophylaxis: On Lovenox 40 mg subcut daily Clinical Impression(s) from Imaging Studies Chest X-Ray 03/20/19 07:15 IMPRESSION: Mild left lower lobe infiltrate and linear subsegmental atelectasis or scar Old lower thoracic spine compression fracture and prior kyphoplasty Chest CTA 03/21/19 08:37 IMPRESSION: No evidence of pulmonary embolism. Findings in keeping with mild scarring at the lung bases. Bilateral renal cysts. Laboratory Results 03/20/19 13:52: Troponin I < 0.015 03/21/19 05:10: Sodium 142, Potassium 4.0, Chloride 109 H, Carbon Dioxide 26.0, Anion Gap 7, BUN 9, Creatinine 0.68 L, Estim Creat Clear Calc 55.52, Est GFR (MDRD) Af Amer 146, Est GFR (MDRD) Non-Af 121, BUN/Creatinine Ratio 13.2, Glucose 100, Calcium 8.4 L, Total Bilirubin 1.10 H, AST 18, ALT 28, Alkaline Phosphatase 71, Total Protein 7.1, Albumin 3.2, Globulin 3.9, Albumin/Globulin Ratio 0.8 L, Triglycerides 123, Cholesterol 146, LDL Cholesterol 91, VLDL Cholesterol 25, HDL Cholesterol 30 L, TSH 1.48 03/21/19 05:10: Hemoglobin A1c 6.0 Subjective: Seen and examined. Patient had history of PE 2012 and at that time he quit his smoking. Started smoking at the age of 20 when he joined [employer]. He follows [employer] Dr. Jain and gets regular PFT. - Physical Exam General: Alert, Oriented x3, Cooperative HEENT: Atraumatic, PERRLA, EOMI, Normocephalic Neck: Supple, No JVD, Negative Carotid Bruits Lungs: Clear to auscultation, Normal air movement, No rhonchi, No wheeze, No rales Cardiovascular: Regular rate, Regular Rhythm, Normal S1, Normal S2, No murmurs Abdomen: Bowel Sounds Present, Soft, Non Tender, Non-Distended Extremities: No edema, Capillary Refill Less than 3 Seconds Skin: No rashes, No breakdown Musculoskeletal: No Tenderness to Palpation of Joints or Extremities, Arthritic Changes Neurological: Cranial nerves II-XII grossly intact, Deep Tendon Reflexes 2+/4 and Symmetrical, Neuro grossly intact Psych/Mental Status: Normal Affect, Appropriate Vital Signs Temp Pulse Resp BP Pulse Ox 97.5 F L 69 18 153/65 H 96 03/21/19 08:55 03/21/19 08:57 03/21/19 08:55 03/21/19 08:55 03/21/19 08:55 Oxygen Flow Rate (L/min) 2 Oxygen Delivery Method Room Air Weight: 194 lb 0.108 oz Body Mass Index (BMI) 32.3 Intake and Output for Last 24 Hours 03/19/19 03/20/19 03/21/19 23:59 23:59 23:59 Intake Total 480 / 480 120 / 120 Output Total / Balance 479 / 479 120 / 120 Laboratory Tests Past 24 Hrs 03/20/19 03/20/19 03/21/19 07:10 13:52 05:10 Sodium 142 Potassium 4.0 Chloride 109 H Carbon Dioxide 26.0 Anion Gap 7 BUN 9 Creatinine 0.68 L Estim Creat Clear Calc 55.52 Est GFR (MDRD) Af Amer 146 Est GFR (MDRD) Non-Af 121 BUN/Creatinine Ratio 13.2 Glucose 100 Hemoglobin A1c Calcium 8.4 L Total Bilirubin 1.10 H AST 18 ALT 28 Alkaline Phosphatase 71 Troponin I < 0.015 B-Natriuretic Peptide 11.0 Total Protein 7.1 Albumin 3.2 Globulin 3.9 Albumin/Globulin Ratio 0.8 L Triglycerides 123 Cholesterol 146 LDL Cholesterol 91 VLDL Cholesterol 25 HDL Cholesterol 30 L TSH 1.48 03/21/19 05:10 Sodium Potassium Chloride Carbon Dioxide Anion Gap BUN Creatinine Estim Creat Clear Calc Est GFR (MDRD) Af Amer Est GFR (MDRD) Non-Af BUN/Creatinine Ratio Glucose Hemoglobin A1c 6.0 Calcium Total Bilirubin AST ALT Alkaline Phosphatase Troponin I B-Natriuretic Peptide Total Protein Albumin Globulin Albumin/Globulin Ratio Triglycerides Cholesterol LDL Cholesterol VLDL Cholesterol HDL Cholesterol TSH Discharge Activity: May Not Drive Call your doctor if you observe: Fever of 101 or Higher, Numbness or Tingling, Inability to urinate, Inability to have a bowel movement, Shortness of breath, Dizziness, Fainting spells, Swelling in the ankles, Chest pain, Prolonged hiccoughing, Increased palpitations (irregular heartbeat), Calf discomfort, Uncontrolled pain Home Medications: Medications to take at Discharge Amlodipine [Norvasc] 10 mg PO DAILY 01/27/14 Vitamin B Complex 1 each PO DAILY 01/27/14 Timolol Maleate [Timoptic-XE 0.5%] 1 drop EACH EYE QHS 07/28/16 Pantoprazole Sodium [Protonix] 40 mg PO DAILY 06/13/17 Nitroglycerin (INPATIENT USE) [Nitrostat] 0.4 mg SUBLINGUAL Q5M PRN 03/05/18 Cyanocobalamin (Vitamin B-12) [B-12] 1,000 mcg SL DAILY 06/24/18 Tamsulosin HCl [Flomax] 0.4 mg PO QHS 06/24/18 Loratadine [Claritin] 10 mg PO DAILY 10/27/18 Metoprolol(XL)Succ [Toprol Xl (Beta Vivien)] 100 mg PO DAILY #30 tab 12/15/18 Bimatoprost 0.01% [Lumigan 0.01%] 1 drp EACH EYE QHS 03/20/19 Cholecalciferol (Vitamin D3) [Vitamin D3] 2,000 unit PO DAILY 03/20/19 Furosemide [Lasix] 20 mg PO DAILY 03/20/19 Oxycodone HCl/Acetaminophen [Oxycodone-Acetaminophen 10-325] 5 - 10 mg PO BID 03/20/19 Potassium Chloride [Klor-Con M20] 20 meq PO DAILY 03/20/19 Simvastatin 20 mg PO QHS 03/20/19 Zolpidem Tartrate [Ambien] 10 mg PO QHS PRN 03/20/19 Primary Care Physician: Layo Clifford DO [Primary Care Provider] - Please follow up with your Primary Care Physician in: in 2 weeks Please Follow Up With: Layo Jain MD When: Right ventricle dialted. COPD? in 3-4 weeks Medical Necessity - Tobacco Use Smoking Status: Former smoker Tobacco Use: Cigarettes Meaningful Use Info Meaningful Use Diagnoses (Choose all that apply): None applicable Code Visit OBSV E&M: 74738 Observation care discharge
--- NOTE | 2019-03-21 11:38 | PHA.DC.MR ---
Pharmacy Service has performed discharge medication reconciliation for this patient. No new home medications added at discharge, reviewed previously reported home medications. The patient's discharge medication list was reviewed for discrepancies and discrepancies were resolved. Home Medications Amlodipine [Norvasc] 10 mg PO DAILY 01/27/14 Vitamin B Complex 1 each PO DAILY 01/27/14 Timolol Maleate [Timoptic-XE 0.5%] 1 drop EACH EYE QHS 07/28/16 Pantoprazole Sodium [Protonix] 40 mg PO DAILY 06/13/17 Nitroglycerin (INPATIENT USE) [Nitrostat] 0.4 mg SUBLINGUAL Q5M PRN 03/05/18 Cyanocobalamin (Vitamin B-12) [B-12] 1,000 mcg SL DAILY 06/24/18 Tamsulosin HCl [Flomax] 0.4 mg PO QHS 06/24/18 Loratadine [Claritin] 10 mg PO DAILY 10/27/18 Metoprolol(XL)Succ [Toprol Xl (Beta Vivien)] 100 mg PO DAILY #30 tab 12/15/18 Bimatoprost 0.01% [Lumigan 0.01%] 1 drp EACH EYE QHS 03/20/19 Cholecalciferol (Vitamin D3) [Vitamin D3] 2,000 unit PO DAILY 03/20/19 Furosemide [Lasix] 20 mg PO DAILY 03/20/19 Oxycodone HCl/Acetaminophen [Oxycodone-Acetaminophen 10-325] 5 - 10 mg PO BID 03/20/19 Potassium Chloride [Klor-Con M20] 20 meq PO DAILY 03/20/19 Simvastatin 20 mg PO QHS 03/20/19 Zolpidem Tartrate [Ambien] 10 mg PO QHS PRN 03/20/19
--- NOTE | 2019-03-21 11:41 | CASEMGMT ---
LW/POA forms scanned into summary tab of pt's echart in [employer]. Meliza Robles is listed as POA. RIC Austin
== END 2019-03-21 11:09 | disposition home or self-care (01) ==
LOC: ED 07:24 → PCU 11:30
PROVIDERS: Admitting Provider Internal Medicine; Emergency Provider Emergency Medicine; Family Provider Family Medicine; PCP Family Medicine; Referring Provider Internal Medicine; Visit Provider Internal Medicine
DX: R07.89 Other chest pain (principal); I10 Essential (primary) hypertension; G89.29 Other chronic pain; K21.9 Gastro-esophageal reflux disease without esophagitis; J44.9 Chronic obstructive pulmonary disease, unspecified; E78.5 Hyperlipidemia, unspecified; I73.9 Peripheral vascular disease, unspecified; R73.03 Prediabetes; G47.33 Obstructive sleep apnea (adult) (pediatric); R06.00 Dyspnea, unspecified; E87.6 Hypokalemia; I44.1 Atrioventricular block, second degree; Z86.711 Personal history of pulmonary embolism; Z85.46 Personal history of malignant neoplasm of prostate; Z79.899 Other long term (current) drug therapy; Z87.891 Personal history of nicotine dependence
CPT/HCPCS: 36415; 71045; 71275; 80048; 80053; 80061; 83036; 83880; 84443; 84484; 85025; 93005; 93306; 96360; 96361; 96372; 99218; 99285; J7030; Q9957; Q9967; A4216; C8929; G0378

== ENCOUNTER 2020-01-11 20:02 | Inpatient (IN) | payer MEDICARE, MEDICAID, SELFPAY ==
[2019-03-20 12:40] VITALS: BMI 32.3
[2020-01-11 20:02] VITALS: BP 177/71; PULSE 69; RESP 18; TEMP 37.4; O2SAT 98; BMI 32.9
[2020-01-11 20:09] VITALS: BP 177/71; PULSE 71; O2SAT 99
--- NOTE | 2020-01-11 20:18 | EKG12_ITS ---
Test Reason : CP Blood Pressure : / mmHG Vent. Rate : 073 BPM Atrial Rate : 073 BPM P-R Int : 164 ms QRS Dur : 090 ms QT Int : 384 ms P-R-T Axes : 054 039 055 degrees QTc Int : 423 ms Normal sinus rhythm with sinus arrhythmia Normal ECG Confirmed by LONI WASHINGTON, FERNANDO ([id number]), makeup editor ANA MURRY ([id number]) on 01/15/2020 10:42:53 AM Referred By: CHRISS Confirmed By:FERNANDO IVEY MD
--- NOTE | 2020-01-11 20:19 | CT_ITS ---
CTA of the chest and abdomen INDICATION: Aortic dissection Comparison study March 21, 2019 TECHNIQUE: CTA of the chest and abdomen was performed scanning in the axial plane following contrast injection followed by sagittal and coronal reconstructions. Radiographic technique was optimized to limit patient radiation dose. DLP was 914.32 FINDINGS: There is mild diffuse interstitial thickening more pronounced in the lower lobes. Centrilobular emphysematous changes are seen in the upper lobes There is minor atelectasis at both lung bases. There is no focal infiltrate. There is a tiny calcified nodule in the right lower lobe.. The heart is normal size. There is multifocal coronary artery calcification. There are tiny calcified right hilar lymph nodes There is mild atherosclerotic changes of the aorta without evidence for aneurysm periaortic leak or dissection. Dorsal spine demonstrates degenerative change. There is old compression fracture of T12 status post kyphoplasty The liver is enlarged and fatty infiltrated without mass or bile duct dilatation. The gallbladder is normal. The spleen is normal size and homogeneous attenuation. Pancreas is normal in size and homogeneous attenuation. The adrenals are normal. There is no evidence for renal obstruction. There are multiple bilateral renal cysts. There are atherosclerotic changes of the aorta without evidence for aneurysm periaortic leak or dissection. There is no evidence for small bowel obstruction normal peritoneum. CT/CTA Chest W/WO Contrast IMPRESSION: COPD and old granulomatous disease. Minor atelectasis at both lung bases. ASHD. No evidence for aortic aneurysm periaortic leak or dissection. Enlarged fatty infiltrated liver. Multiple bilateral renal cysts Old compression fracture of T12 status post kyphoplasty Electronically Signed: Eder Camarena MD at 20:55 EDT , Service support ,
--- NOTE | 2020-01-11 20:19 | CT_ITS ---
CTA of the chest and abdomen INDICATION: Aortic dissection Comparison study March 21, 2019 TECHNIQUE: CTA of the chest and abdomen was performed scanning in the axial plane following contrast injection followed by sagittal and coronal reconstructions. Radiographic technique was optimized to limit patient radiation dose. DLP was 914.32 FINDINGS: There is mild diffuse interstitial thickening more pronounced in the lower lobes. Centrilobular emphysematous changes are seen in the upper lobes There is minor atelectasis at both lung bases. There is no focal infiltrate. There is a tiny calcified nodule in the right lower lobe.. The heart is normal size. There is multifocal coronary artery calcification. There are tiny calcified right hilar lymph nodes There is mild atherosclerotic changes of the aorta without evidence for aneurysm periaortic leak or dissection. Dorsal spine demonstrates degenerative change. There is old compression fracture of T12 status post kyphoplasty The liver is enlarged and fatty infiltrated without mass or bile duct dilatation. The gallbladder is normal. The spleen is normal size and homogeneous attenuation. Pancreas is normal in size and homogeneous attenuation. The adrenals are normal. There is no evidence for renal obstruction. There are multiple bilateral renal cysts. There are atherosclerotic changes of the aorta without evidence for aneurysm periaortic leak or dissection. There is no evidence for small bowel obstruction normal peritoneum. CT/CTA Abdomen W/WO Contrast IMPRESSION: COPD and old granulomatous disease. Minor atelectasis at both lung bases. ASHD. No evidence for aortic aneurysm periaortic leak or dissection. Enlarged fatty infiltrated liver. Multiple bilateral renal cysts Old compression fracture of T12 status post kyphoplasty Electronically Signed: Eder Camarena MD at 20:55 EDT , Service support ,
[2020-01-11 20:40] LABS: Absolute Lymphocyte Count 2.52 X10^3/uL (0.83-4.51); Absolute Neutrophil Count 17.2 X10^3/uL (2.0-7.7); Basophil% 0.5 % (0-1); Eosinophil# 0.03 X10^3/uL; Eosinophils% 0.1 % (0-5); Hematocrit 45.2 % (40-54); Hemoglobin 15.5 g/dL (13.0-16.5); Lymphocyte # 2.52 X10^3/ul (4.0); Lymphocyte % 11.5 % (19-41); Mean Corp Hgb Conc 34.3 g/dL (32-36); Mean Corpuscular Hgb 31.8 pg (27.0-32.0); Mean Corpuscular Volume 92.6 fL (80-94); Mean Platelet Vol. 11.2 fl (6.2-12.0); Monocyte# 1.41 X10^3/uL; Monocyte% 6.5 % (0-10); NRBC Flagged by Analyzer 0 % (0-5); Neutrophil # 17.19 X10^3/uL (2.7-7.7); Neutrophil % 78.8 % (47-70); Platelet Count 290 K/mm3 (150-450); RBC Distribution Width CV 13.7 % (11.6-14.6); RBC Distribution Width SD 46.7 fl (35.1-43.9); Red Blood Count 4.88 M/mm3 (4.6-6.2); White Blood Count 21.8 K/mm3 (4.4-11.0)
[2020-01-11] MEDS: 0.9% Normal Saline 1,000 ML 1000 ML IV (20:40)
[2020-01-11 21:00] LABS: ALB/GLOB Ratio 0.9 RATIO (0.9-2.4); AST(SGOT) 11 U/L (15-37); Alanine Aminotransfer ALT/SGPT 34 U/L (16-61); Albumin, Serum 3.5 g/dL (3.2-5.0); Alkaline Phosphatase 65 U/L (45-117); Anion Gap 9 (5-15); BUN 14 mg/dL (7-18); Calcium,Total 8.8 mg/dL (8.5-10.1); Chloride 105 mmol/L (98-107); Creatinine, Serum 0.74 mg/dL (0.70-1.30); EST Glomerular Filtration Rate 110 mL/min (>60); Est Glom Filt Rate - Afr Amer 133 mL/min (>60); Estimated Creatinine Clearance 55.52 ml/min; Globulin 3.7 g/dL (2.2-4.2); Glucose 133 mg/dL (74-106); Lipase 134 U/L (73-393); Potassium 3.5 mmol/L (3.5-5.1); Protein, Total 7.2 g/dL (6.4-8.2); Sodium Level 138 mmol/L (136-145)
[2020-01-11 21:43] LABS: Bacteria 0 SEEN /hpf (None Seen); Color, Urine Yellow (Yellow); Glucose, Dipstick Normal (Normal); Ketone-Dipstick Negative (Negative); Leukocyte Esterase-Dipstick Negative /ul (Negative); Mucous, Urine 0 SEEN /hpf (<or=2+); Nitrite-Dipstick Negative (Negative); Occult Blood-Urine Negative /ul (Negative); Protein-Dipstick Negative (Negative); Red Blood Cells-Urine 0 SEEN /hpf (0-5); Specific Gravity, Urine 1.005 (1.002-1.030); Squamous Epithelial Cells - UA 0 SEEN /hpf (0-5); Urine Bilirubin Dipstick Negative (Negative); Urine Clarity Sl. Cloudy (Clear); Urine Urobilinogen Normal (Normal); White Blood Cells 0 SEEN /hpf (0-5)
[2020-01-11] MEDS: oxyCODONE 5 MG Tablet PO (21:59)
[2020-01-11] MEDS: Acetaminophen 500 MG Tablet 1000 MG PO (22:00)
[2020-01-11 22:08] VITALS: BP 150/60; O2SAT 98
--- NOTE | 2020-01-11 22:29 | EKG12_ITS ---
Test Reason : REPEAT EKG Blood Pressure : / mmHG Vent. Rate : 058 BPM Atrial Rate : 058 BPM P-R Int : 190 ms QRS Dur : 092 ms QT Int : 410 ms P-R-T Axes : 048 031 049 degrees QTc Int : 402 ms Sinus bradycardia Otherwise normal ECG Confirmed by LONI WASHINGTON, FERNANDO ([id number]), editor & co founder ANA MURRY ([id number]) on 01/15/2020 10:43:08 AM Referred By: CHRISS Confirmed By:FERNANDO IVEY MD
--- NOTE | 2020-01-11 23:28 | ED.VISSUMM ---
- ER Visit Summary Date of Service: 01/11/20 Chief Complaint: Chest pain History of Present Illness: The patient is a [address] 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 Patient reports that he was at a baseball game and had back pain that came on abruptly it was a sharp pain was 8 out of 10 in severity. It radiated up from his lower back into his neck. He got in his car and was driving to the emergency department when he had the onset of chest pain that began 30 minutes ago. He describes it as a elephant sitting on my chest. States pain was 10 at 10 at worst and is pain-free currently. It was worsened by nothing. It was relieved with a second nitroglycerin on the way in. Reports that it made him nauseated, diaphoretic, and short of breath. States is had similar symptoms previously. He had a heart catheterization 1 year ago that did not require stents. Physical Examination: Vitals: Stable. Afebrile. General: Well-nourished and well-developed. Head: Normocephalic atraumatic. Neck: Supple, no lymphadenopathy. No JVD. Nontender. Cardiovascular: Regular rate and rhythm. 2 out of 6 systolic murmur. Respiratory: No respiratory distress. Clear to auscultation bilaterally. Abdominal: Soft, nontender, nondistended, normal bowel sounds. No guarding, rebound, or peritoneal signs. Back: Nontender. Extremities: Nontender, no edema. Skin: Normal color, no rash. Neurologic: Alert and oriented ?3. Cranial nerves II through XII are intact. Normal strength and sensation. Psych: Normal affect. Test Results: EKG shows sinus arrhythmia rate of 73. Is unchanged from February 2019. Repeat EKG is unchanged. Initial troponin is 0.015. Repeat troponin is 0.091. CBC shows a white count of 21.8 with 79 segmented neutrophils, 12 lymphocytes, and 2.6% immature granulocytes. Chem-7 shows a glucose 133. LFTs are normal. Lipase is normal. UA is normal. Clinical Impression(s) from Imaging Studies Abdomen CTA 01/11/20 20:19 IMPRESSION: COPD and old granulomatous disease. Minor atelectasis at both lung bases. ASHD. No evidence for aortic aneurysm periaortic leak or dissection. Enlarged fatty infiltrated liver. Multiple bilateral renal cysts Old compression fracture of T12 status post kyphoplasty Electronically Signed: Eder Camarena MD at 20:55 EDT , Service support , Chest CTA 01/11/20 20:19 IMPRESSION: COPD and old granulomatous disease. Minor atelectasis at both lung bases. ASHD. No evidence for aortic aneurysm periaortic leak or dissection. Enlarged fatty infiltrated liver. Multiple bilateral renal cysts Old compression fracture of T12 status post kyphoplasty Electronically Signed: Eder Camarena MD at 20:55 EDT , Service support , Emergency Department Course and Treatment: Patient was given a dose of Tylenol and oxycodone p.o. He is resting comfortably. He was given aspirin by squad. He denies chest pain at this time. I reviewed the patient's records. He had a heart catheterization in October 2018 that showed 10-25 proximal LAD and only mild luminal irregularities otherwise. He was admitted in February of last year with what he reports are the exact same symptoms that he had tonight. At that time his troponin became indeterminate as well and his third troponin was normal. He reports that he was not given an explanation for this. I told him that I do not have an explanation for this tonight either. Treatment Plan: Patient was discussed with Dr. Haider. He will be admitted to the hospital for further evaluation and treatment. Disposition: Admitted in improved and stable condition. Impression: 1. Atypical chest pain. 2. Indeterminate troponin. 3. FRANCA score of 3. 4. Leukocytosis. 5. Back pain, uncertain cause. This note was generated with [employer] software. It may contain incorrect words, spelling, and punctuation that were not noted in review of the chart prior to signing ED Disposition - Plan for ED Patient: Referrals: Layo Clifford DO [Primary Care Provider] -
--- NOTE | 2020-01-11 23:34 | PCM.HP.STD ---
Problem List (1) Glaucoma Status: Chronic (2) Hyperlipidemia Status: Chronic (3) Chest pain at rest Status: Acute (4) PAD (peripheral artery disease) Status: Chronic (5) Gastroesophageal reflux disease Status: Chronic (6) COPD (chronic obstructive pulmonary disease) Status: Chronic Comment: mild (7) Hx pulmonary embolism Status: Chronic (8) HTN (hypertension) Status: Chronic (9) Prostate cancer Status: Chronic (10) NSTEMI (non-ST elevated myocardial infarction) Status: Acute History of Present Illness Date of Admission: 01/11/20 Chief Complaint: chest pain The patient is a 74 year old M with a significant history of prostate cancer; hypertension; and hyperlipidemia who presented to emergency department with chest pain that started at rest. Patient was watching his grandson's baseball game. He began to have progressively worsening excruciating substernal chest pain. Because of the chest pain he left the basketball game and began to drive towards the hospital. He took 2 tablets of nitroglycerin sequentially. His second nitroglycerin gave him some relief. Because his chest pain was getting worse he called the paramedics who met him on his way and brought him to the emergency department. He denies any aggravating factors to the chest pain. The paramedics gave patient 4 tablets of baby aspirin. His chest pain radiates to his back. Associated with his symptoms is diaphoresis; nausea and shortness of breath. He denies vomiting. At the emergency department EKG shows sinus bradycardia. Past Medical History Past Medical History (Chronic Problems): Chronic Problems Glaucoma (Chronic) Hyperlipidemia (Chronic) PAD (peripheral artery disease) (Chronic) Gastroesophageal reflux disease (Chronic) COPD (chronic obstructive pulmonary disease) (Chronic) mild Hx pulmonary embolism (Chronic) HTN (hypertension) (Chronic) Prostate cancer (Chronic) Allergies Penicillins Allergy (Verified 01/11/20 20:13) Unknown Sulfa (Sulfonamide Antibiotics) Allergy (Verified 01/11/20 20:13) Unknown morphine Adverse Reaction (Intermediate, Verified 01/11/20 20:13) Shortness of breath lorazepam Adverse Reaction (Verified 01/11/20 20:13) Other blurry vision Home Medications: Ambulatory Orders Medication Instructions Recorded Amlodipine [Norvasc] 10 mg PO DAILY 01/27/14 Vitamin B Complex 1 each PO DAILY 01/27/14 Timolol Maleate [Timoptic-XE 0.5%] 1 drop EACH EYE QHS 01/04/17 Pantoprazole Sodium [Protonix] 40 mg PO DAILY 06/13/17 Nitroglycerin (INPATIENT USE) 0.4 mg SUBLINGUAL Q5M PRN 03/05/18 [Nitrostat] Cyanocobalamin (Vitamin B-12) 1,000 mcg SL DAILY 06/24/18 [B-12] Tamsulosin HCl [Flomax] 0.4 mg PO QHS 06/24/18 Loratadine [Claritin] 10 mg PO DAILY 10/27/18 Metoprolol(XL)Succ [Toprol Xl 100 mg PO DAILY #30 tab 12/15/18 (Beta Vivien)] Bimatoprost 0.01% [Lumigan 0.01%] 1 drp EACH EYE QHS 03/20/19 Cholecalciferol (Vitamin D3) 2,000 unit PO DAILY 03/20/19 [Vitamin D3] Furosemide [Lasix] 20 mg PO DAILY 03/20/19 Oxycodone HCl/Acetaminophen 10 mg PO BID PRN 03/20/19 [Oxycodone-Acetaminophen 10-325] Potassium Chloride [Klor-Con M20] 20 meq PO DAILY 03/20/19 Glucosamine/Methylsulfonylmeth 2 ea PO DAILY 01/12/20 [Glucosamine-MSM Caplet] Surgical History: tonsillectomy Psychiatric History: No pertinent psych hx, - - He has no hx of anxiety but his BP goes up with any stressor. He is afraid to go home even though the work up in the ER is negative. When the EMT's picked him up at his house his BP was over 200 he says. It was 173/91 with a HR of 103 when he initially presented to the ER. Smoking Status: Never smoker - *Family History Maternal History Items: COPD Paternal History Items: Heart Disease - His father at age 50 from massive heart attack. Review of Systems Constitutional: Denies: Chills, Fever, Weight Change HEENT: Denies: Head Aches, Sinus Congestion, Sinus Drainage Cardiovascular: Reports: Chest Pain. Denies: Palpitations Respiratory: Reports: Shortness of Breath. Denies: Cough, Sputum production Gastrointestinal: Reports: Nausea. Denies: Abdominal Pain, Vomiting Genitourinary: Denies: Dysuria Musculoskeletal: Reports: Back Pain. Denies: Joint Pain, Joint Tenderness Skin: Denies: Rash, Wounds Neurological: Denies: Numbness, Tingling, Focal weakness Psychiatric: Denies: Anxiety, Depression, Homicidal Ideations, Suicidal Ideations Hematologic/ Lymphatic: Denies: Easy Bruising, Easy Bleeding VTE Information - Inpt Only VTE Present on Admission: No VTE Mechan Device Prophylaxis: None VTE Pharm Prophylaxis ordered?: No Reason prophylaxis not ordered:: Treatment Not Indicated - Started on heparin drip for non-ST elevation SC. Patient Problems: Active and Suspected Problems NSTEMI (non-ST elevated myocardial infarction) (Acute) - Physical Exam Vitals/I&O's: Vital Signs Temp Pulse Resp BP Pulse Ox 99.3 F H 71 18 150/60 H 98 01/11/20 20:02 01/11/20 20:09 01/11/20 20:02 01/11/20 22:08 01/11/20 22:08 Oxygen Delivery Method Room Air Weight: 89.7 kg Body Mass Index (BMI) 32.9 Intake and Output for Last 24 Hours 01/09/20 01/10/20 01/11/20 23:59 23:59 23:59 Intake Total 1000 / 1000 Balance 1000 / 1000 General: Alert, Oriented x3, Cooperative HEENT: Atraumatic, PERRLA, EOMI, Normocephalic Neck: Supple, No JVD, Negative Carotid Bruits Lungs: Clear to auscultation, Normal air movement, No rhonchi, No wheeze, No rales Cardiovascular: Regular rate, Regular Rhythm, Normal S1, Normal S2, No murmurs Abdomen: Bowel Sounds Present, Soft, Non Tender Extremities: No edema, Capillary Refill Less than 3 Seconds Skin: No rashes, No breakdown Musculoskeletal: No Tenderness to Palpation of Joints or Extremities Neurological: Cranial nerves II-XII grossly intact Psych/Mental Status: Normal Affect, Appropriate Laboratory Results 01/11/20 20:15: WBC 21.8 H, RBC 4.88, Hgb 15.5, Hct 45.2, MCV 92.6, MCH 31.8, MCHC 34.3, RDW Std Deviation 46.7 H, RDW Coeff of Suki 13.7, Plt Count 290, MPV 11.2, Immature Gran % (Auto) 2.600 H, Neut % (Auto) 78.8 H, Lymph % (Auto) 11.5 L, [place] % (Auto) 6.5, Eos % (Auto) 0.1, Baso % (Auto) 0.5, Absolute Neuts (auto) 17.2 H, Absolute Lymphs (auto) 2.52, Nucleated RBC % 0 01/11/20 20:15: Sodium 138, Potassium 3.5, Chloride 105, Carbon Dioxide 24.0, Anion Gap 9, BUN 14, Creatinine 0.74, Estim Creat Clear Calc 55.52, Est GFR (MDRD) Af Amer 133, Est GFR (MDRD) Non-Af 110, BUN/Creatinine Ratio 19.0, Glucose 133 H, Calcium 8.8, Total Bilirubin 0.90, AST 11 L, ALT 34, Alkaline Phosphatase 65, Troponin I < 0.015, Total Protein 7.2, Albumin 3.5, Globulin 3.7, Albumin/Globulin Ratio 0.9, Lipase 134 01/11/20 21:40: Urine Color Yellow, Urine Clarity Sl. Cloudy, Urine pH 7.0, Ur Specific Fenton 1.005, Urine Protein Negative, Urine Glucose (UA) Normal, Urine Ketones Negative, Urine Occult Blood Negative, Urine Nitrite Negative, Urine Bilirubin Negative, Urine Urobilinogen Normal, Ur Leukocyte Esterase Negative, Urine RBC 0 SEEN, Urine WBC 0 SEEN, Ur Squamous Epith Cells 0 SEEN, Urine Bacteria 0 SEEN, Urine Mucus 0 SEEN 01/11/20 22:40: Troponin I 0.091 H Assessment/Plan All Active Problems Chest pain at rest (Acute) NSTEMI (non-ST elevated myocardial infarction) (Acute) The patient is a 74 year old M with a significant history of prostate cancer; hypertension; and hyperlipidemia who presented to emergency department with chest pain that started at rest and with elevated troponin. Non-ST elevation SC. His initial troponin was 0.015. However his repeat troponin increase to 0.091. Received 4 baby aspirin by paramedics. Discussed case with biological lab technician on-call Dr. Aldo Christianson. Aspirin 81 mg daily ordered. Up recommendation from biological lab technician will start patient on IV nitroglycerin and IV heparin. Cardiology to see patient in a.m.. Repeat EKG. Check lipid panel. EKG on presentation showed mild sinus bradycardia with ventricular rate of 58. Review of emergency department labs showed first troponin to be Patient had a diagnostic cardiac catheterization on 11/08/2018 which showed lower [place] multivessel CAD. His proximal LAD showed 10 to 25% stenosis. Mid LAD show some mild luminal irregularities. Circumflex showed mild luminal irregularities. OM1 proximal showed mild showed mild luminal irregularities. Ramus was angiographically normal. Right coronary artery showed mild luminal irregularities. His left ventricular ejection fraction was normal. He had elevated left ventricular end-diastolic pressure. Metoprolol and lisinopril continued. Hypertensive emergency Highest systolic blood pressure is 200. Amlodipine continued. Lisinopril and metoprolol continued. Trend blood pressure and adjust blood pressure medications. Nitroglycerin IV started for chest pain. DVT prophylaxis Not indicated since patient has been started on a heparin drip for non-ST elevation SC. Inpatient E&M: 16930 Init Hosp L3
[2020-01-11 23:56] VITALS: BP 187/76; PULSE 73; RESP 15; TEMP 37.1; O2SAT 98
[2020-01-12] VITALS (21 sets, daily range): BP systolic 132–200; BP diastolic 54–93; PULSE 54–101; RESP 11–16; TEMP 36.5–36.7; O2SAT 89–98; BMI 31.4
--- NOTE | 2020-01-12 00:38 | EKG12_ITS ---
Test Reason : CP ADMIT Blood Pressure : / mmHG Vent. Rate : 059 BPM Atrial Rate : 059 BPM P-R Int : 190 ms QRS Dur : 090 ms QT Int : 404 ms P-R-T Axes : 050 033 056 degrees QTc Int : 399 ms Sinus bradycardia Otherwise normal ECG When compared with ECG of 11-JAN-2020 20:11, MANUAL COMPARISON REQUIRED, DATA IS UNCONFIRMED Confirmed by LONI WASHINGTON, FERNANDO ([id number]), multimedia editor ANA MURRY ([id number]) on 01/15/2020 11:07:31 AM Referred By: DR DUKE Confirmed By:FERNANDO IVEY MD
[2020-01-12] MEDS: Nitroglycerin Infusion 250 ML 3 MG IV (01:54)
[2020-01-12] MEDS: 0.9% Saline Lock 10 ML Syringe IV (02:03)
[2020-01-12 02:52] LABS: International Normalized Ratio 1.1; Prothrombin Time (Protime)PT. 13.4 SECONDS (11.7-14.9)
[2020-01-12] MEDS: Atorvastatin Calcium 40 MG Tablet PO (02:57)
[2020-01-12] MEDS: oxyCODONE 5 MG Tablet PO ×2 (03:02→09:09)
[2020-01-12 03:09] LABS: Absolute Lymphocyte Count 1.53 X10^3/uL (0.83-4.51); Absolute Neutrophil Count 15.2 X10^3/uL (2.0-7.7); Basophil# 0.07 X10^3/uL; Basophil% 0.4 % (0-1); Eosinophil# 0.03 X10^3/uL; Eosinophils% 0.2 % (0-5); Hematocrit 44.8 % (40-54); Hemoglobin 15.2 g/dL (13.0-16.5); Lymphocyte # 1.53 X10^3/ul (4.0); Lymphocyte % 8.4 % (19-41); Mean Corp Hgb Conc 33.9 g/dL (32-36); Mean Corpuscular Hgb 31.9 pg (27.0-32.0); Mean Corpuscular Volume 93.9 fL (80-94); Mean Platelet Vol. 11.1 fl (6.2-12.0); Monocyte# 0.97 X10^3/uL; Monocyte% 5.3 % (0-10); NRBC Flagged by Analyzer 0 % (0-5); Neutrophil # 15.24 X10^3/uL (2.7-7.7); Neutrophil % 83.5 % (47-70); Platelet Count 274 K/mm3 (150-450); RBC Distribution Width CV 13.9 % (11.6-14.6); RBC Distribution Width SD 48.2 fl (35.1-43.9); Red Blood Count 4.77 M/mm3 (4.6-6.2); White Blood Count 18.3 K/mm3 (4.4-11.0)
[2020-01-12 03:23] LABS: ALB/GLOB Ratio 0.9 RATIO (0.9-2.4); AST(SGOT) 10 U/L (15-37); Alanine Aminotransfer ALT/SGPT 30 U/L (16-61); Albumin, Serum 3.2 g/dL (3.2-5.0); Alkaline Phosphatase 60 U/L (45-117); Anion Gap 6 (5-15); BUN 13 mg/dL (7-18); BUN/Creat Ratio 21.9 RATIO (10-20); Calcium,Total 8.3 mg/dL (8.5-10.1); Chloride 108 mmol/L (98-107); Cholesterol 166 mg/dL (200); Creatinine, Serum 0.59 mg/dL (0.70-1.30); EST Glomerular Filtration Rate 141 mL/min (>60); Est Glom Filt Rate - Afr Amer 171 mL/min (>60); Estimated Creatinine Clearance 55.52 ml/min; Globulin 3.5 g/dL (2.2-4.2); Glucose 131 mg/dL (74-106); High Density Lipoprotein 52 mg/dL; Potassium 3.7 mmol/L (3.5-5.1); Protein, Total 6.7 g/dL (6.4-8.2); Sodium Level 140 mmol/L (136-145); Triglycerides 61 mg/dL; Very Low Density Lipoprotein 12 mg/dL (5-40)
[2020-01-12] MEDS: Heparin Injection (Vial) 5,000 UNIT/ML VIAL 6000 UNIT IV (03:29)
[2020-01-12] MEDS: HEPARIN/D5w 25,000 UNITS 25,000 UNITS/250 ML IV.SOLN. 12 UNITS IV (03:30)
--- NOTE | 2020-01-12 09:53 | PCM.CONS.C ---
Problem List (1) Chest pain at rest Status: Acute Reason for Consult Date of Consultation: 01/12/20 Reason for Consultation: Recurrence of chest pain History of Present Illness: The patient is a 74 year old M [] Was at a baseball game yesterday and develop neck pain with radiation down to the substernal area. He drove long-term to the hospital and took 2 nitro with resolutions of the pain. The EMT picked him up long-term and brought him to the emergency room. After admission, 3 sets of EKG were normal, troponin was mildly elevated initially and trending down. 14 months ago patient had similar pain and had cardiac catheterization which showed insignificant coronary artery disease with preserved left ventricular systolic wall motion. He was a heavy smoker and quit several years ago. He is a nondrinker. He is known to have hypertension and hyperlipidemia. In a good day, patient can walk through [facility] with no difficulty. Past Medical History Allergies/Adverse Reactions: Allergies Penicillins Allergy (Verified 01/11/20 20:13) Unknown Sulfa (Sulfonamide Antibiotics) Allergy (Verified 01/11/20 20:13) Unknown morphine Adverse Reaction (Intermediate, Verified 01/11/20 20:13) Shortness of breath lorazepam Adverse Reaction (Verified 01/11/20 20:13) Other blurry vision Home Medications: Ambulatory Orders Medication Instructions Recorded Amlodipine [Norvasc] 10 mg PO DAILY 01/27/14 Vitamin B Complex 1 each PO DAILY 01/27/14 Timolol Maleate [Timoptic-XE 0.5%] 1 drop EACH EYE QHS 07/28/16 Pantoprazole Sodium [Protonix] 40 mg PO DAILY 06/13/17 Nitroglycerin (INPATIENT USE) 0.4 mg SUBLINGUAL Q5M PRN 03/05/18 [Nitrostat] Cyanocobalamin (Vitamin B-12) 1,000 mcg SL DAILY 06/24/18 [B-12] Tamsulosin HCl [Flomax] 0.4 mg PO QHS 06/24/18 Loratadine [Claritin] 10 mg PO DAILY 10/27/18 Metoprolol(XL)Succ [Toprol Xl 100 mg PO DAILY #30 tab 12/15/18 (Beta Vivien)] Bimatoprost 0.01% [Lumigan 0.01%] 1 drp EACH EYE QHS 03/20/19 Cholecalciferol (Vitamin D3) 2,000 unit PO DAILY 03/20/19 [Vitamin D3] Furosemide [Lasix] 20 mg PO DAILY 03/20/19 Oxycodone HCl/Acetaminophen 10 mg PO BID PRN 03/20/19 [Oxycodone-Acetaminophen 10-325] Potassium Chloride [Klor-Con M20] 20 meq PO DAILY 03/20/19 Glucosamine/Methylsulfonylmeth 2 ea PO DAILY 01/12/20 [Glucosamine-MSM Caplet] Past Medical History (Chronic Problems): Chronic Problems Glaucoma (Chronic) Hyperlipidemia (Chronic) PAD (peripheral artery disease) (Chronic) Gastroesophageal reflux disease (Chronic) COPD (chronic obstructive pulmonary disease) (Chronic) mild Hx pulmonary embolism (Chronic) HTN (hypertension) (Chronic) Prostate cancer (Chronic) Surgical History: tonsillectomy Psychiatric History: No pertinent psych hx, - - He has no hx of anxiety but his BP goes up with any stressor. He is afraid to go home even though the work up in the ER is negative. When the EMT's picked him up at his house his BP was over 200 he says. It was 173/91 with a HR of 103 when he initially presented to the ER. - *Family History Maternal History Items: COPD Paternal History Items: Heart Disease - His father at age 50 from massive heart attack. Smoking Status: Former smoker Tobacco Use: Cigarettes Review of Systems - Review of Systems General: Denies: Fever, Fatigue, Weakness Cardiovascular: Reports: Chest Discomfort at Rest - History of present illness Gastrointestinal: Denies: Hematemesis, Hematochezia, Melena Neurological: Reports: Dizziness - For short period time yesterday Objective: Vital Signs Temp Pulse Resp BP Pulse Ox 98.0 F 54 L 14 151/61 H 92 01/12/20 08:00 01/12/20 08:00 01/12/20 08:00 01/12/20 09:00 01/12/20 08:00 Oxygen Delivery Method Room Air Weight: 188 lb 14.978 oz Body Mass Index (BMI) 31.4 Intake and Output for Last 24 Hours 01/10/20 01/11/20 01/12/20 23:59 23:59 23:59 Intake Total 1000 / 1000 100.30 / 100.30 Output Total 250 / 250 Balance 1000 / 1000 -149.70 / -149.70 General: Healthy Appearing, No Acute Distress Neck: Supple Lungs: Diminished Abelardo Bases - No bronchospasm Cardiovascular: Regular Rhythm, Normal S1, Normal S2, No Murmurs Vascular: No Carotid Bruits Abdomen: Bowel Sounds Present, Soft, Non Tender Extremities: Mild LLE Edema Neurological: No Focal Motor or Sensory Deficit 01/11/20 20:15: WBC 21.8 H, RBC 4.88, Hgb 15.5, Hct 45.2, MCV 92.6, MCH 31.8, MCHC 34.3, Plt Count 290, MPV 11.2, Immature Gran % (Auto) 2.600 H, Neut % (Auto) 78.8 H, Lymph % (Auto) 11.5 L, [place] % (Auto) 6.5, Eos % (Auto) 0.1, Baso % (Auto) 0.5, Absolute Neuts (auto) 17.2 H, Nucleated RBC % 0 01/11/20 20:15: Sodium 138, Potassium 3.5, Chloride 105, Carbon Dioxide 24.0, Anion Gap 9, BUN 14, Creatinine 0.74, Est GFR (MDRD) Af Amer 133, Est GFR (MDRD) Non-Af 110, BUN/Creatinine Ratio 19.0, Glucose 133 H, Calcium 8.8, Total Bilirubin 0.90, Troponin I < 0.015 01/11/20 21:40: Urine Color Yellow, Urine Clarity Sl. Cloudy, Urine pH 7.0, Ur Specific [place] 1.005, Urine Protein Negative, Urine Glucose (UA) Normal, Urine Ketones Negative, Urine Occult Blood Negative, Urine Nitrite Negative, Urine Bilirubin Negative, Urine Urobilinogen Normal, Ur Leukocyte Esterase Negative, Urine RBC 0 SEEN, Urine WBC 0 SEEN 01/11/20 22:40: Troponin I 0.091 H 01/12/20 02:36: WBC 18.3 H, RBC 4.77, Hgb 15.2, Hct 44.8, MCV 93.9, MCH 31.9, MCHC 33.9, Plt Count 274, MPV 11.1, Immature Gran % (Auto) 2.200 H, Neut % (Auto) 83.5 H, Lymph % (Auto) 8.4 L, [place] % (Auto) 5.3, Eos % (Auto) 0.2, Baso % (Auto) 0.4, Absolute Neuts (auto) 15.2 H, Nucleated RBC % 0 01/12/20 02:36: Sodium 140, Potassium 3.7, Chloride 108 H, Carbon Dioxide 26.0, Anion Gap 6, BUN 13, Creatinine 0.59 L, Est GFR (MDRD) Af Amer 171, Est GFR (MDRD) Non-Af 141, BUN/Creatinine Ratio 21.9 H, Glucose 131 H, Calcium 8.3 L, Total Bilirubin 1.10 H, Triglycerides 61, Cholesterol 166, LDL Cholesterol 102, VLDL Cholesterol 12, HDL Cholesterol 52 01/12/20 02:36: Troponin I 0.069 H 01/12/20 02:36: PT 13.4, INR 1.1, APTT 28.0 Rhythm: EK sets of EKG were normal ECHO: Stress Test: Cardiac Cath: Normal cardiac catheterization 14 months ago PCI: CT Surgery: Holter monitor: EPS: PPM: CXR: Chest CT Scan: CTA of the chest and abdomen showed no dissection Assessment/Plan #1 chest pain preceded by neck pain, this is most likely due to degenerative arthritis of the neck which the patient is known to have. The pain was similar to the pain 14 months ago before cardiac catheterization which showed insignificant coronary artery disease. 3 sets of EKG were normal. 3 sets of enzymes were not impressive. CTA of the chest showed no dissection. I am comfortable concluding that the patient does not have ischemic episode. IV nitro and IV heparin could be discontinued. At this point no invasive cardiology procedure is entertained
[2020-01-12] MEDS: Timolol 0.5% 5ML OPTH.BTL 5 DRP EACH EYE (10:00)
[2020-01-12] MEDS: Loratadine 10 MG Tablet PO (10:03)
[2020-01-12] MEDS: Vitamin B Comp W-C Capsule 1 CAP PO (10:03)
[2020-01-12] MEDS: Furosemide 20 MG Tablet PO (10:04)
[2020-01-12] MEDS: Aspirin E.C. 81 MG Tablet PO (10:04)
[2020-01-12] MEDS: amLODIPine 10 MG Tablet PO (10:04)
[2020-01-12] MEDS: Pantoprazole Sodium 40 MG Tablet PO (10:04)
[2020-01-12 10:05] LABS: Partial Thromboplast Time 120.1 Seconds (24.1-36.2)
[2020-01-12] MEDS: Metoprolol(XL)Succ 100 MG Tablet PO (10:05)
[2020-01-12] MEDS: Latanoprost 0.005% 1 Bottle 1 DRP OPHTHALMIC (10:05)
--- NOTE | 2020-01-12 11:00 | DCINST_ITS ---
- Discharge Diagnoses Current Active Problems: Current Active and Chronic Problems NSTEMI (non-ST elevated myocardial infarction) (Acute) You will use the following diet at home:: No restrictions Your food should be the consistency of: Regular Your liquids should be the consistency of: Regular/Thin Discharge Activity: Return to Normal Activity Weight Bearing Status: Full weight bearing Allergies/Adverse Reactions: Allergies Penicillins Allergy (Verified 01/11/20 20:13) Unknown Sulfa (Sulfonamide Antibiotics) Allergy (Verified 01/11/20 20:13) Unknown morphine Adverse Reaction (Intermediate, Verified 01/11/20 20:13) Shortness of breath lorazepam Adverse Reaction (Verified 01/11/20 20:13) Other blurry vision Medications to take at Discharge Amlodipine [Norvasc] 10 mg PO DAILY 01/27/14 Vitamin B Complex 1 each PO DAILY 01/27/14 Timolol Maleate [Timoptic-XE 0.5%] 1 drop EACH EYE QHS 07/28/16 Pantoprazole Sodium [Protonix] 40 mg PO DAILY 06/13/17 Nitroglycerin (INPATIENT USE) [Nitrostat] 0.4 mg SUBLINGUAL Q5M PRN 03/05/18 Cyanocobalamin (Vitamin B-12) [B-12] 1,000 mcg SL DAILY 06/24/18 Tamsulosin HCl [Flomax] 0.4 mg PO QHS 06/24/18 Loratadine [Claritin] 10 mg PO DAILY 10/27/18 Metoprolol(XL)Succ [Toprol Xl (Beta Vivien)] 100 mg PO DAILY #30 tab 12/15/18 Bimatoprost 0.01% [Lumigan 0.01%] 1 drp EACH EYE QHS 03/20/19 Cholecalciferol (Vitamin D3) [Vitamin D3] 2,000 unit PO DAILY 03/20/19 Furosemide [Lasix] 20 mg PO DAILY 03/20/19 Oxycodone HCl/Acetaminophen [Oxycodone-Acetaminophen 10-325] 10 mg PO BID PRN 03/20/19 Potassium Chloride [Klor-Con M20] 20 meq PO DAILY 03/20/19 Glucosamine/Methylsulfonylmeth [Glucosamine-MSM Caplet] 2 ea PO DAILY 01/12/20 Isosorbide Mononitrate [Imdur] 30 mg PO UD #60 tab 01/12/20 The following prescriptions were given: Isosorbide Mononitrate [Imdur] 30 mg PO UD #60 tab Transmission Status: Pending to [id number] Primary Care Physician: Layo Clifford DO [Primary Care Provider] - Please follow up with your Primary Care Physician in: in one week Test Results: Test results from this visit will be discussed in further detail at your follow- up appointment, if applicable.
--- NOTE | 2020-01-12 11:10 | CASEMGMT ---
JOHNY QUIROZ assessment: Face to Face with patient for initial transition planning/care coordination assessment. JOHNY QUIROZ introduced self and role at [facility], pt voices understanding and consents to assessment at this time. Pt is sitting up in bed in no distress at this time. Pt is A/Ox4 at this time and answers all questions appropriately at this time. Care providers, pharmacy, and demographics verified at this time. Presentation: CP starting at 1900-took nitro, felt 'sick to stomach' with pain Admitting dx: NSTEMI PCP: Layo Clifford Specialists: Josi-CHRISTINA at [facility] Preferred Pharmacy: [facility] Insurance: [facility] A/B, [employer] Prescription Benefit: Yes Living Will/HPOA: Pt has LW/HPOA and is aware that they are on file at [facility] at this time. Pt's daughter, Meliza Robles, is HPOA. LNOK: Meliza Robles, daughter Living Arrangements: Pt states lives alone in 1 story apartment and states no concerns at home at this time. Pt states is independent with ADL's. Transportation: Pt states drives self and states no transportation concerns at this time. DME/HHC: Pt states has the following DME: cane, grab bars, and cpap thru [employer]. Pt states no need for any further DME at this time. Pt states no hx of HHC or SNF in the past. Pt states no concerns with going home at time of discharge. Pt states is retired. Pt states does not smoke or drink ETOH. Pt states no further concerns/needs at this time. CM to follow for any further discharge planning/needs. Advised pt to ask for CM if any further questions/concerns/needs arise, voices understanding. Pt Goal: Home Plan[place] JOHNY QUIROZ
[2020-01-12 12:50] LABS: Hemoglobin A1c 5.7 % (3.8-5.6)
--- NOTE | 2020-01-13 17:07 | DS.PCM_ITS ---
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 #5 chronic obstructive pulmonary disease #6 hyperlipidemia - Secondary Discharge Diagnosis Chronic Problems: Chronic Problems Glaucoma (Chronic) Hyperlipidemia (Chronic) PAD (peripheral artery disease) (Chronic) Gastroesophageal reflux disease (Chronic) COPD (chronic obstructive pulmonary disease) (Chronic) mild Hx pulmonary embolism (Chronic) HTN (hypertension) (Chronic) Prostate cancer (Chronic) Hospital Course and Treatment Operations: None Procedures: None Summary of Care Provided: The patient is a 74 year old M was seen in the emergency room at [facility] with a chief complaint of back pain that radiated into his neck, he then had onset of chest pain. He described it as an elephant sitting on my chest. Patient took 2 nitroglycerin and it relieved the pain. Patient had a history of nonocclusive coronary disease and had underwent a cardiac catheterization approximately a year ago which showed minimal coronary artery disease. Patient was worked up in the emergency room, EKG showed sinus arrhythmia but was unchanged from February 2019, initial troponin was 0.015, repeat troponin was obtained which was elevated at 0.091. CBC showed an elevated white blood cell count at 21.8, CTA of the chest was performed which showed no evidence of pulmonary emboli, and old compression fracture of T12 was noted to be present with evidence of post kyphoplasty, minor atelectasis at both lung bases was noted along with COPD. Patient was admitted for non-STEMI, repeat troponin actually declined from the second troponin. Patient had no more episodes of chest pain, he was seen in consultation by cardiology who did not feel the patient had a non-STEMI and felt that his chest discomfort could have been secondary to musculoskeletal reasons. On 01/12/2020, patient was seen and examined: On examination he appeared in good health and spirits. Vital signs as documented. Skin warm and dry and without overt rashes. Neck without JVD, neck was supple, trachea midline, thyroid was normal. Lungs clear bilaterally, normal air movement was noted. Heart exam notable for regular rhythm, normal sounds and absence of murmurs, rubs or gallops. Abdomen unremarkable and without evidence of organomegaly, masses, or abdominal aortic enlargement. Bowel sounds are present, abdomen is not distended. Extremities nonedematous, no cyanosis was noted, no clubbing was noted. Neuro: Cranial nerves II through XII are grossly intact, no focal motor deficits were noted, sensation to light touch and pinprick intact, motor exam 5/5 throughout. Psych: Patient is alert and oriented x3, he does not appear anxious or depressed, he does not appear agitated. On 01/12/2020, patient was seen and examined felt in stable condition for discharge home-I made the decision at the time of discharge to place the patient on long-acting nitrates and have him follow-up with his PCP for further instructions. Cardiology did not recommend placing the patient on an aspirin. - Physical Exam Vitals/I&O's: Vital Signs Temp Pulse Resp BP Pulse Ox 98.0 F 101 H 14 174/88 H 94 01/12/20 09:58 01/12/20 10:58 01/12/20 09:58 01/12/20 09:58 01/12/20 09:58 Oxygen Delivery Method Room Air Weight: 85.7 kg Body Mass Index (BMI) 31.4 Intake and Output for Last 24 Hours 01/11/20 01/12/20 01/13/20 23:59 23:59 23:59 Intake Total 1000 / 1000 100.30 / 100.30 Output Total 250 / 250 Balance 1000 / 1000 -149.70 / -149.70 Discharge Activity: Return to Normal Activity Weight Bearing Status: Full weight bearing Home Medications: Medications to take at Discharge Amlodipine [Norvasc] 10 mg PO DAILY 01/27/14 Vitamin B Complex 1 each PO DAILY 01/27/14 Timolol Maleate [Timoptic-XE 0.5%] 1 drop EACH EYE QHS 07/28/16 Pantoprazole Sodium [Protonix] 40 mg PO DAILY 06/13/17 Nitroglycerin (INPATIENT USE) [Nitrostat] 0.4 mg SUBLINGUAL Q5M PRN 03/05/18 Cyanocobalamin (Vitamin B-12) [B-12] 1,000 mcg SL DAILY 06/24/18 Tamsulosin HCl [Flomax] 0.4 mg PO QHS 06/24/18 Loratadine [Claritin] 10 mg PO DAILY 10/27/18 Metoprolol(XL)Succ [Toprol Xl (Beta Vivien)] 100 mg PO DAILY #30 tab 12/15/18 Bimatoprost 0.01% [Lumigan 0.01%] 1 drp EACH EYE QHS 03/20/19 Cholecalciferol (Vitamin D3) [Vitamin D3] 2,000 unit PO DAILY 03/20/19 Furosemide [Lasix] 20 mg PO DAILY 03/20/19 Oxycodone HCl/Acetaminophen [Oxycodone-Acetaminophen 10-325] 10 mg PO BID PRN 03/20/19 Potassium Chloride [Klor-Con M20] 20 meq PO DAILY 03/20/19 Glucosamine/Methylsulfonylmeth [Glucosamine-MSM Caplet] 2 ea PO DAILY 01/12/20 Isosorbide Mononitrate [Imdur] 30 mg PO UD #60 tab 01/12/20 Following Prescrptions Were Given to Patient: Isosorbide Mononitrate [Imdur] 30 mg PO UD #60 tab Transmission Status: [id number] Primary Care Physician: Layo Clifford DO [Primary Care Provider] - Please follow up with your Primary Care Physician in: in one week Disposition: Home Minutes spent on discharge:: 31 Patient Condition:: Stable Medical Necessity - Tobacco Use Smoking Status: Former smoker Tobacco Use: Cigarettes Meaningful Use Info Meaningful Use Diagnoses (Choose all that apply): None applicable OBSV E&M: 53801 Observ/hosp same date L3
== END 2020-01-12 11:47 | disposition home or self-care (01) | DRG 313 ==
LOC: ED 20:51 → PCU 01-12 00:41
PROVIDERS: Admitting Provider Hospitalist; Emergency Provider Emergency Medicine; PCP Family Medicine; Visit Provider Internal Medicine
DX: R07.89 Other chest pain (principal); I16.1 Hypertensive emergency; M48.54XA Collapsed vertebra, not elsewhere classified, thoracic region, initial encounter for fracture; I25.10 Atherosclerotic heart disease of native coronary artery without angina pectoris; E78.5 Hyperlipidemia, unspecified; N28.1 Cyst of kidney, acquired; R79.89 Other specified abnormal findings of blood chemistry; M47.812 Spondylosis without myelopathy or radiculopathy, cervical region; M50.30 Other cervical disc degeneration, unspecified cervical region; M51.36 Other intervertebral disc degeneration, lumbar region; H40.9 Unspecified glaucoma; I73.9 Peripheral vascular disease, unspecified; K21.9 Gastro-esophageal reflux disease without esophagitis; I10 Essential (primary) hypertension; J44.9 Chronic obstructive pulmonary disease, unspecified; Z86.711 Personal history of pulmonary embolism; Z85.46 Personal history of malignant neoplasm of prostate; Z82.49 Family history of ischemic heart disease and other diseases of the circulatory system; Z82.5 Family history of asthma and other chronic lower respiratory diseases
CPT/HCPCS: 36415; 71275; 74175; 80053; 80061; 81001; 83036; 83690; 84484; 85025; 85610; 85730; 93005; 99285; Q9967; A4216

== ENCOUNTER 2021-08-18 15:25 | Emergency (ER) | payer MEDICARE, MEDICAID, SELFPAY ==
[2021-08-18 15:26] VITALS: PULSE 77; RESP 20; TEMP 36.7; O2SAT 96; BMI 33.7
[2021-08-18 15:30] VITALS: BP 156/61
--- NOTE | 2021-08-18 15:40 | CT_ITS ---
STUDY: CT BRAIN WITHOUT CONTRAST REASON FOR EXAM: Male, 76 years old. Confusion RADIATION DOSAGE (If Supplied By Facility): CTDIvol = ( 44.99 ) mGy, DLP = ( 812.98 ) mGycm TECHNIQUE: Transaxial CT imaging of the brain was performed without administration of intravenous contrast material. Individualized dose optimization techniques were used for this CT. COMPARISON: 07/20/2013 FINDINGS: Normal soft tissue structures. Normal calvarium. There is mild cerebral atrophy with widening of the extra-axial spaces and ventricular dilatation. Normal white matter tracts of the cerebral hemispheres. Normal basal ganglia and thalami. Normal brainstem. Normal cerebellum. There is no intracranial hemorrhage. There are no findings of an acute ischemic infarction. Normal visualized paranasal sinuses. CT/Brain/Head without Contrast IMPRESSION: Chronic involutional changes of the brain. Electronically Signed: Chaitanya Machuca MD at 16:37 EST ,
--- NOTE | 2021-08-18 15:43 | EX.ED.DYSGE1 ---
HPI History of Present Illness Chief Complaint: Confusion Informant: patient Onset/Context/Timing Onset: Today Context: Gradual Onset Timing: Waxes and wanes Quality: Confused Location: Generalized Worsened by: Nothing Relieved by: Nothing Narrative Narrative: Patient presents with confusion that began today. Patient states it has been waxing and waning throughout the day. Patient remembers telling the nurse that he saw the year was 2019 but also remembers that she corrected him and knows that the year is 2021. Patient knows the president [employer]. Patient knows that it is Tuesday. Patient denies any numbness or tingling in his arms or legs. Patient admits to a mild headache. Patient states nothing makes his symptoms worse and nothing makes it better. Patient states that he has had abnormal labs recently. Patient does not remember the labs that have been abnormal however triage note indicates that it is his sodium. Patient states he only drank small amount of coffee today. [facility] Medical History (Updated 08/18/21 @ 17:[address] Aldo Rice, DO) COPD (chronic obstructive pulmonary disease) HTN (hypertension) PAD (peripheral artery disease) Home Medications amlodipine 10 mg PO DAILY 01/27/14 [History Last Taken 01/11/20] vitamin B complex 1 ea PO DAILY 01/27/14 [History Last Taken 01/11/20] timolol maleate [Timoptic-XE] 1 drp EACH EYE QHS 07/28/16 [History Last Taken 01/10/20] pantoprazole 40 mg PO DAILY 06/13/17 [History Last Taken 01/11/20] nitroglycerin 0.4 mg SUBLINGUAL Q5M PRN 03/05/18 [History Last Taken 01/11/20] cyanocobalamin (vitamin B-12) 1,000 mcg SUBLINGUAL DAILY 06/24/18 [History Last Taken 01/11/20] tamsulosin [Flomax] 0.4 mg PO QHS 06/24/18 [History Last Taken 01/10/20] metoprolol succinate 100 mg PO DAILY #30 tab 12/15/18 [Rx Last Taken 01/11/20 10:00] bimatoprost 1 drp EACH EYE QHS 03/20/19 [History Last Taken 01/10/20] cholecalciferol (vitamin D3) 2,000 unit PO DAILY 03/20/19 [History Last Taken 01/11/20] furosemide 20 mg PO DAILY 03/20/19 [History Last Taken 01/11/20] oxycodone-acetaminophen 10 mg PO BID PRN 03/20/19 [History Last Taken 01/08/20] potassium chloride 20 meq PO DAILY 03/20/19 [History Last Taken 01/11/20] glucosamine sulfate-msm 2 ea PO DAILY 01/12/20 [History Last Taken 01/11/20] isosorbide mononitrate 60 mg PO UD 08/18/21 [History Last Taken Unknown] Allergy/AdvReac Type Severity Reaction Status Date / Time Penicillins Allergy Unknown Verified 08/18/21 15:29 Sulfa (Sulfonamide Allergy Unknown Verified 08/18/21 15:29 Antibiotics) morphine AdvReac Intermediate Shortness Verified 08/18/21 15:29 of breath lorazepam AdvReac Other Verified 08/18/21 15:29 Surgical History (Updated 08/18/21 @ 15:[address] Aldo Riec DO) Hx of tonsillectomy Social History Smoking Status: Former smoker ROS ROS ED Constitutional Constitutional ED: Denies chills or fever(s) Eyes Eyes: Denies blurry vision or change in vision ENT ENT ED: Reports sore throat; Denies rhinorrhea Cardiovascular Cardiovascular: Denies chest pain or palpitations Respiratory/Chest Respiratory/Chest: Reports cough; Denies dyspnea Gastrointestinal Gastrointestinal: Denies nausea or vomiting Genitourinary Genitourinary ED: Reports urinary frequency; Denies dysuria or hematuria Musculoskeletal Musculoskeletal: Reports neck pain; Denies back pain Integumentary Denies abscess or rash Neurologic Neurologic: Reports headache(s); Denies weakness Allergic/Immunologic Allergic/Immunologic ED: Denies mouth swelling or urticaria EXAM Physical Exam Const Vital Signs: 08/18/21 15:26 08/18/21 15:30 Temperature 98.1 F Temperature Source Oral Pulse Rate 77 Respiratory Rate 20 H Blood Pressure 156/61 H Blood Pressure Mean 92 Pulse Ox 96 Oxygen Delivery Method Room Air Positive well nourished and well developed General Appearance ED: well developed HEENT Reports moist mucous membranes Neck supple and no JVD Resp normal respiratory effort and clear to auscultation bilaterally Cardio regular rate, regular rhythm and no murmurs GI normal to inspection, nondistended, normoactive bowel sounds and non-tender Palpation: soft Extremity normal to inspection General Extremety ED: Negative for edema or tenderness General Extremity: Negative for edema Neuro oriented x3, CN's II-XII intact bilaterally and no sensory deficits noted Sensorium / Orientation: alert Motor Exam: strength 5/5 throughout Psych mental status grossly normal Skin no rashes or lesions noted MDM MDM MDM Narrative Medical decision making narrative: CT scan of the brain was obtained. There are chronic changes noted. There is no acute intracranial abnormality. This was interpreted by the radiologist and reviewed by myself. CBC and comprehensive metabolic profile were obtained and were within normal limits. Urinalysis does not show any evidence of urinary tract infection. Ammonia level was normal. Patient was advised of his findings. Patient was instructed to follow-up with his primary care physician in 3 to 5 days for further evaluation. Patient understood and was agreeable with the plan. All questions were answered. Lab Data Labs: Laboratory Results - last 24 hr 08/18/21 08/18/21 08/18/21 15:45 15:45 15:55 WBC 9.2 RBC 5.07 Hgb 15.8 Hct 46.9 MCV 92.5 MCH 31.2 MCHC 33.7 RDW Std Deviation 44.6 H RDW Coeff of Suki 13.2 Plt Count 233 MPV 11.8 Immature Gran % (Auto) 0.400 Neut % (Auto) 68.7 Lymph % (Auto) 22.2 [place] % (Auto) 6.4 Eos % (Auto) 1.9 Baso % (Auto) 0.4 Absolute Neuts (auto) 6.3 Absolute Lymphs (auto) 2.04 Nucleated RBC % 0 Sodium 141 Potassium 4.0 Chloride 109 H Carbon Dioxide 27.0 Anion Gap 5 BUN 9 Creatinine 0.80 Estim Creat Clear Calc 67.27 Est GFR (MDRD) Af Amer 120 Est GFR (MDRD) Non-Af 99 BUN/Creatinine Ratio 11.2 Glucose 106 Calcium 8.9 Total Bilirubin 1.10 H AST 16 ALT 31 Alkaline Phosphatase 77 Ammonia Total Protein 8.0 Albumin 3.9 Globulin 4.1 Albumin/Globulin Ratio 1.0 Urine Color Straw Urine Clarity Clear Urine pH 7.0 Ur Specific [place] 1.005 Urine Protein Negative Urine Glucose (UA) Normal Urine Ketones Negative Urine Occult Blood Negative Urine Nitrite Negative Urine Bilirubin Negative Urine Urobilinogen Normal Ur Leukocyte Esterase Negative Urine RBC 0 SEEN Urine WBC 0 SEEN Ur Squamous Epith Cells 0 SEEN Urine Bacteria 0 SEEN Urine Mucus 0 SEEN 08/18/21 15:57 WBC RBC Hgb Hct MCV MCH MCHC RDW Std Deviation RDW Coeff of Suki Plt Count MPV Immature Gran % (Auto) Neut % (Auto) Lymph % (Auto) [place] % (Auto) Eos % (Auto) Baso % (Auto) Absolute Neuts (auto) Absolute Lymphs (auto) Nucleated RBC % Sodium Potassium Chloride Carbon Dioxide Anion Gap BUN Creatinine Estim Creat Clear Calc Est GFR (MDRD) Af Amer Est GFR (MDRD) Non-Af BUN/Creatinine Ratio Glucose Calcium Total Bilirubin AST ALT Alkaline Phosphatase Ammonia 11.0 Total Protein Albumin Globulin Albumin/Globulin Ratio Urine Color Urine Clarity Urine pH Ur Specific [place] Urine Protein Urine Glucose (UA) Urine Ketones Urine Occult Blood Urine Nitrite Urine Bilirubin Urine Urobilinogen Ur Leukocyte Esterase Urine RBC Urine WBC Ur Squamous Epith Cells Urine Bacteria Urine Mucus Radiography Diagnostic Testing: Clinical Impression(s) from Imaging Studies Brain CT 08/18/21 15:40 IMPRESSION: Chronic involutional changes of the brain. Electronically Signed: Chaitanya Machuca MD at 16:37 EST , Discharge Plan Triage Chief Complaint: Confusion ED Provider: Aldo Rice Dx/Rx/DC Orders Clinical Impression: Episode of confusion Instructions: ED Confusion Prescriptions: No Action amlodipine 5 MG tablet 10 mg PO DAILY RF: 0 vitamin B complex 1 EACH capsule 1 ea PO DAILY RF: 0 timolol maleate [Timoptic-XE] 1 DROP gel forming solution 1 drp Each Eye QHS RF: 0 pantoprazole 40 MG tablet 40 mg PO DAILY RF: 0 nitroglycerin 0.4 MG tablet 0.4 mg sublingual Q5M PRN (Reason: Chest Pain) RF: 0 cyanocobalamin (vitamin B-12) 1,000 MCG tablet 1,000 mcg sublingual DAILY RF: 0 tamsulosin [Flomax] 0.4 MG capsule 0.4 mg PO QHS RF: 0 metoprolol succinate 100 MG tablet 100 mg PO DAILY Qty: 30 RF: 0 potassium chloride 20 MEQ tablet,ER particles/crystals 20 meq PO DAILY RF: 0 furosemide 20 MG tablet 20 mg PO DAILY RF: 0 cholecalciferol (vitamin D3) 2,000 UNIT capsule 2,000 unit PO DAILY RF: 0 bimatoprost 1 DROP bottle 1 drp EACH EYE QHS RF: 0 oxycodone-acetaminophen 1 EACH tablet 10 mg PO BID PRN (Reason: Pain Score 1-10/10) RF: 0 glucosamine sulfate-msm 1 EACH tablet 2 ea PO DAILY RF: 0 isosorbide mononitrate 30 MG tablet extended release 24 hr 60 mg PO UD RF: 0 Primary Care Provider: Care Physician,No Primary Referrals: Care Physician,No Primary [Primary Care Provider] - Doctor,Your [STAFF PHYSICIAN] - 3-5 Days Disposition Disposition: Home, Self Care
[2021-08-18 15:59] LABS: Bacteria 0 SEEN /hpf (None Seen); Mucous, Urine 0 SEEN /hpf (<or=2+); Red Blood Cells-Urine 0 SEEN /hpf (0-5); Squamous Epithelial Cells - UA 0 SEEN /hpf (0-5); White Blood Cells 0 SEEN /hpf (0-5)
[2021-08-18 16:06] LABS: Color, Urine Straw (Yellow); Glucose, Dipstick Normal (Normal); Ketone-Dipstick Negative (Negative); Leukocyte Esterase-Dipstick Negative /ul (Negative); Nitrite-Dipstick Negative (Negative); Occult Blood-Urine Negative /ul (Negative); Protein-Dipstick Negative (Negative); Specific Gravity, Urine 1.005 (1.002-1.030); Urine Bilirubin Dipstick Negative (Negative); Urine Clarity Clear (Clear); Urine Urobilinogen Normal (Normal)
[2021-08-18] MEDS: 0.9% Normal Saline 1,000 ML 1000 ML IV (16:13)
[2021-08-18 16:16] LABS: AST(SGOT) 16 U/L (15-37); Alanine Aminotransfer ALT/SGPT 31 U/L (16-61); Albumin, Serum 3.9 g/dL (3.2-5.0); Alkaline Phosphatase 77 U/L (45-117); Anion Gap 5 (5-15); BUN 9 mg/dL (7-18); BUN/Creat Ratio 11.2 RATIO (10-20); Calcium,Total 8.9 mg/dL (8.5-10.1); Chloride 109 mmol/L (98-107); EST Glomerular Filtration Rate 99 mL/min (>60); Est Glom Filt Rate - Afr Amer 120 mL/min (>60); Estimated Creatinine Clearance 67.27 ml/min; Globulin 4.1 g/dL (2.2-4.2); Glucose 106 mg/dL (74-106); Sodium Level 141 mmol/L (136-145)
[2021-08-18 16:18] LABS: Absolute Lymphocyte Count 2.04 X10^3/uL (0.83-4.51); Absolute Neutrophil Count 6.3 X10^3/uL (2.0-7.7); Basophil# 0.04 X10^3/uL; Basophil% 0.4 % (0-1); Eosinophil# 0.17 X10^3/uL; Eosinophils% 1.9 % (0-5); Hematocrit 46.9 % (40-54); Hemoglobin 15.8 g/dL (13.0-16.5); Lymphocyte # 2.04 X10^3/ul (0.83-4.51); Lymphocyte % 22.2 % (19-41); Mean Corp Hgb Conc 33.7 g/dL (32-36); Mean Corpuscular Hgb 31.2 pg (27.0-32.0); Mean Corpuscular Volume 92.5 fL (80-94); Mean Platelet Vol. 11.8 fl (6.2-12.0); Monocyte# 0.59 X10^3/uL; Monocyte% 6.4 % (0-10); NRBC Flagged by Analyzer 0 % (0-5); Neutrophil % 68.7 % (47-70); Platelet Count 233 K/mm3 (150-450); RBC Distribution Width CV 13.2 % (11.6-14.6); RBC Distribution Width SD 44.6 fl (35.1-43.9); Red Blood Count 5.07 M/mm3 (4.6-6.2); White Blood Count 9.2 K/mm3 (4.4-11.0)
[2021-08-18 17:32] VITALS: BP 145/61; PULSE 70; RESP 16; O2SAT 95
== END 2021-08-18 17:33 | disposition home or self-care (01) ==
PROVIDERS: Emergency Provider Emergency Medicine; Visit Provider Emergency Medicine
DX: R41.0 Disorientation, unspecified (principal); J44.9 Chronic obstructive pulmonary disease, unspecified; I73.9 Peripheral vascular disease, unspecified; I10 Essential (primary) hypertension; Z79.899 Other long term (current) drug therapy; Z87.891 Personal history of nicotine dependence
CPT/HCPCS: 70450; 80053; 81001; 82140; 85025; 96360; 99285; J7030; A4216

== ENCOUNTER → 2021-11-13 | Outpatient (CLI) | payer MEDICARE, MEDICAID, SELFPAY ==
[2021-11-13 08:11] LABS: Osmolality, Urine 118 mOsm/KG
[2021-11-13 08:20] LABS: Urine Sodium 19 mmol/L (Not Establ.)
[2021-11-13 08:30] LABS: Anion Gap 4 (5-15); BUN 13 mg/dL (7-18); BUN/Creat Ratio 17.1 RATIO (10-20); Calcium,Total 8.1 mg/dL (8.5-10.1); Chloride 106 mmol/L (98-107); Creatinine, Serum 0.76 mg/dL (0.70-1.30); EST Glomerular Filtration Rate 105 mL/min (>60); Est Glom Filt Rate - Afr Amer 127 mL/min (>60); Glucose 107 mg/dL (74-106); Potassium 3.8 mmol/L (3.5-5.1); Sodium Level 138 mmol/L (136-145)
== END | disposition home or self-care (01) ==
LOC: LAB 07:17
PROVIDERS: Referring Provider Internal Medicine Nephrology; Visit Provider Internal Medicine Nephrology
DX: E87.1 Hypo-osmolality and hyponatremia (principal)
CPT/HCPCS: 36415; 80048; 83935; 84300

== ENCOUNTER → 2021-12-25 | Outpatient (CLI) | payer MEDICARE, MEDICAID, SELFPAY ==
--- NOTE | 2021-12-25 16:24 | CT_ITS ---
INDICATION: PULMONARY HPERTENSION EXAMINATION: CT CHEST WITHOUT CONTRAST - CT Chest W/O Contrast Injection TECHNIQUE: Helically acquired images were obtained of the chest. A radiation dose optimization technique was used for this scan. IV Contrast dosage and agent: None. COMPARISON: CTA chest of 01/11/2020.. FINDINGS: LUNGS, PLEURA AND LARGE AIRWAYS: Chronic discoid scarring or atelectasis at the lung bases. Mild pulmonary emphysema again noted within the upper lobes. No acute pulmonary infiltrates. No masses, consolidation, or edema. No pleural effusion or thickening. No pneumothorax. THYROID: No thyroid lesions. HEART AND PERICARDIUM: Trace of pericardial fluid, extending into the superior pericardial recess; this minimal pericardial effusion has developed since the prior study. CORONARY ARTERIES: Extensive coronary artery calcification. VESSELS: Thoracic aorta is calcific and is normal in caliber. No intimal calcification displacement. Main pulmonary trunk measures up to 3.4 cm in transverse diameter, as can be seen with pulmonary arterial hypertension, and unchanged.. MEDIASTINUM AND DAVID: Normal size mediastinal lymph nodes. Calcified hilar lymph nodes are present indicating remote granulomatous infection. No mediastinal or hilar adenopathy. Esophagus is unremarkable. No hiatal hernia. UPPER ABDOMEN: Visualized portions of the liver, spleen, and adrenal glands are unremarkable. 3.2 cm simple cyst is partially imaged at the upper pole of the right kidney, and requires no follow-up. Left renal upper pole is unremarkable. Pancreas is atrophic. No pneumoperitoneum is noted. 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 BONES: No acute fracture. Previous vertebroplasty at the T11 level. CT/Chest without Contrast IMPRESSION: No significant interval change. Mild upper lobe pulmonary emphysema. Mild dilatation of the main pulmonary trunk as can be seen with pulmonary arterial hypertension. Interval development of a minimal pericardial effusion. No acute pulmonary infiltrates. Electronically Signed: Onesimo Montero MD at 7:35 EDT ,
== END | disposition home or self-care (01) ==
LOC: CT 16:21
PROVIDERS: PCP Nurse Practitioner Primary Care; Referring Provider Internal Medicine Pulmonary Disease; Visit Provider Internal Medicine Pulmonary Disease
DX: I27.20 Pulmonary hypertension, unspecified (principal)
CPT/HCPCS: 71250

== ENCOUNTER → 2023-01-10 | Outpatient (CLI) | payer MEDICARE, MEDICAID, SELFPAY ==
--- NOTE | 2023-01-10 07:07 | CT_ITS ---
STUDY: LOW DOSE CT LUNG CANCER SCREENING REASON FOR EXAM: Male, 77 years old. One pack per day smoker x30 years, quit 20 years ago RADIATION DOSAGE (If Supplied By Facility): CTDIvol = ( 3.02 ) mGy, DLP = ( 91.01 ) mGycm TECHNIQUE: No contrast was administered. Low dose technique was utilized (average mAS-38 and kVp 120). 1.25 mm axial source images with a slice interval of 1.25-mm were reconstructed in lung windows. 2.5 mm axial source images with a slice interval of 2.5-mm were reconstructed in lung windows. 5.0 mm axial source images with a slice interval of 5.0-mm were reconstructed in soft tissue windows. COMPARISON: 12/25/2021 FINDINGS: Lung windows show the lungs to be normally expanded. Chronic interstitial changes in both lung amras with bibasilar atelectasis. No organized infiltrate, or effusion, no suspicious noncalcified mass or nodule. Soft tissue windows show normal-appearing thyroid gland. Scattered subcentimeter in short axis dimension likely physiologic axillary and mediastinal lymph nodes. Peripheral calcifications noted in the thoracic aorta and multiple coronary vessels. Bony structures show degenerative change. Limited cuts through the upper abdomen do not show any suspicious abnormality CT/Low Dose CT Lung Screening IMPRESSION: Lung-RADS category 2 - Continue annual screening with LDCT in 12 months. IMPORTANT NOTES FOR USE: ACR Lung-RADS Version 1.1 Assessment Categories Release Date: 2018 Category: Coded 0-4 bases on nodule(s) with highest degree of suspicion. Negative screen is defined as categories 1 and 2; a positive screen is defined as categories 3 and 4. Category 3 and 4A nodules that are unchanged on interval CT should be coded as category 2, and individuals returned to screening in 12 months. Category 4X: Category 3 or 4 nodules with additional imaging findings that increase the suspicion of lung cancer, such as spiculation, GGN that doubles in size in 1 year, enlarged lymph notes, etc. Category Modifiers: S (significant finding unrelated to lung cancer) Electronically Signed: Johny Da Silva MD at 16:19 EDT ,
== END | disposition home or self-care (01) ==
LOC: CT 07:06
PROVIDERS: PCP Nurse Practitioner Primary Care; Referring Provider Internal Medicine Pulmonary Disease; Visit Provider Internal Medicine Pulmonary Disease
DX: Z12.2 Encounter for screening for malignant neoplasm of respiratory organs (principal); Z87.891 Personal history of nicotine dependence
CPT/HCPCS: 71271

== ENCOUNTER → 2023-06-01 | Outpatient (CLI) | payer MEDICARE, SELFPAY ==
--- NOTE | 2023-06-01 11:19 | CT_ITS ---
STUDY: CT BRAIN WITHOUT CONTRAST REASON FOR EXAM: Male, 78 years old. Headache for the last 2 weeks. RADIATION DOSAGE (If Supplied By Facility): CTDIvol = ( 44.99 ) mGy, DLP = ( 812.98 ) mGycm TECHNIQUE: Transaxial CT imaging of the brain was performed without administration of intravenous contrast material. Individualized dose optimization techniques were used for this CT. COMPARISON: Comparison is made with prior study February 15, 2022. FINDINGS: Normal soft tissue structures. Normal calvarium. There is mild cerebral atrophy with widening of the extra-axial spaces and ventricular dilatation. There are areas of decreased attenuation within the white matter tracts of the supratentorial brain, consistent with microvascular disease changes. Normal basal ganglia and thalami. Normal brainstem. Normal cerebellum. There is no intracranial hemorrhage. There are no findings of an acute ischemic infarction. Atherosclerotic plaque formation of the cavernous portions of the internal carotid arteries bilaterally. Minimal mucosal thickening along the posterior aspect of the left sphenoid sinus. CT/Brain/Head without Contrast IMPRESSION: Chronic involutional changes of the brain. Electronically Signed: Anthony Beyer MD at 12:36 EST ,
== END | disposition home or self-care (01) ==
PROVIDERS: PCP Nurse Practitioner Primary Care; Referring Provider Nurse Practitioner Primary Care; Visit Provider Nurse Practitioner Primary Care
DX: R51.9 Headache, unspecified (principal)
CPT/HCPCS: 70450

== ENCOUNTER 2023-06-30 13:02 | Inpatient (IN) | payer MEDICARE, SELFPAY ==
[2023-06-30] VITALS (9 sets, daily range): BP systolic 124–181; BP diastolic 55–67; PULSE 74–105; RESP 14–18; TEMP 36.8–37.3; O2SAT 86–100; BMI 30.7; BMI 29.8
[2023-06-30 14:56] LABS: Absolute Lymphocyte Count 1.27 X10^3/uL (0.83-4.51); Absolute Neutrophil Count 8.6 X10^3/uL (2.0-7.7); Basophil# 0.05 X10^3/uL; Basophil% 0.4 % (0-1); Eosinophil# 0.15 X10^3/uL; Eosinophils% 1.3 % (0-5); Hematocrit 42.3 % (40-54); Hemoglobin 14.2 g/dL (13.0-16.5); Lymphocyte # 1.27 X10^3/ul (0.83-4.51); Lymphocyte % 11.2 % (19-41); Mean Corp Hgb Conc 33.6 g/dL (32-36); Mean Corpuscular Hgb 31.1 pg (27.0-32.0); Mean Corpuscular Volume 92.8 fL (80-94); Monocyte% 10.6 % (0-10); NRBC Flagged by Analyzer 0 % (0-5); Neutrophil % 76.1 % (47-70); Platelet Count 204 K/mm3 (150-450); RBC Distribution Width SD 44.1 fl (35.1-43.9); Red Blood Count 4.56 M/mm3 (4.6-6.2); White Blood Count 11.3 K/mm3 (4.4-11.0)
[2023-06-30 15:10] LABS: ALB/GLOB Ratio 0.8 RATIO (0.9-2.4); AST(SGOT) 14 U/L (15-37); Alanine Aminotransfer ALT/SGPT 28 U/L (16-61); Albumin, Serum 3.6 g/dL (3.2-5.0); Alkaline Phosphatase 59 U/L (45-117); Anion Gap 4 (5-15); BUN 10 mg/dL (7-18); BUN/Creat Ratio 10.7 RATIO (10-20); Calcium,Total 8.5 mg/dL (8.5-10.1); Chloride 106 mmol/L (98-107); Creatinine, Serum 0.93 mg/dL (0.70-1.30); EST Glomerular Filtration Rate 83 mL/min (>60); Est Glom Filt Rate - Afr Amer 100 mL/min (>60); Globulin 4.3 g/dL (2.2-4.2); Glucose 115 mg/dL (74-106); Potassium 4.1 mmol/L (3.5-5.1); Protein, Total 7.9 g/dL (6.4-8.2); Sodium Level 138 mmol/L (136-145)
--- NOTE | 2023-06-30 16:26 | EDS_ITS ---
HPI History of Present Illness Chief Complaint: Nausea/Vomiting Narrative Narrative: 77-year-old male presenting with chest pain. He states left-sided and rating to left arm. This happened about noon today. Patient states that he was diagnosed with COVID-19 this morning at [place] and was on his way home and decided to get a sandwich at the gas station. When he sat in his car he started to develop chest pain that lasted about 3 minutes in which time he had called EMS. By the time they arrived he states the chest pain was improved. Patient states that he has no cardiac history. He states his only medical problem is hypertension. He states has been sick since Tuesday so this is roughly 6 days. [facility] Medical History COPD (chronic obstructive pulmonary disease) HTN (hypertension) PAD (peripheral artery disease) Home Medications amlodipine 5 mg tablet 10 mg PO DAILY blood pressure 01/27/14 [History Last Taken 01/11/20] vitamin B complex 1 ea PO DAILY vitamin 01/27/14 [History Last Taken 01/11/20] timolol maleate 0.5 % eye gel forming solution (Timoptic-XE) 1 drp QHS eye health 07/28/16 [History Last Taken 01/10/20] pantoprazole 40 mg tablet,delayed release 40 mg PO DAILY reflux 06/13/17 [History Last Taken 01/11/20] nitroglycerin 0.4 mg sublingual tablet 0.4 mg sublingual Q5M PRN Chest Pain 03/05/18 [History Last Taken 01/11/20] cyanocobalamin (vitamin B-12) 1,000 mcg tablet 1,000 mcg sublingual DAILY vitamin 06/24/18 [History Last Taken 01/11/20] tamsulosin 0.4 mg capsule (Flomax) 0.4 mg PO QHS prostate 06/24/18 [History Last Taken 01/10/20] metoprolol succinate 100 mg tablet,extended release 24 hr 100 mg PO DAILY #30 tabs 12/15/18 [Rx Last Taken 01/11/20 10:00] bimatoprost 0.01 % eye drops 1 drp EACH EYE QHS glaucoma 03/20/19 [History Last Taken 01/10/20] cholecalciferol (vitamin D3) 50 mcg (2,000 unit) capsule 2,000 unit PO DAILY vitamin 03/20/19 [History Last Taken 01/11/20] furosemide 20 mg tablet 20 mg PO DAILY diuretic 03/20/19 [History Last Taken 01/11/20] oxycodone-acetaminophen 10 mg-325 mg tablet 10 mg PO BID PRN Pain Score 1-1003/20/19 [History Last Taken 01/08/20] potassium chloride 20 mEq tablet,extended release(part/cryst) 20 meq PO DAILY replacement 03/20/19 [History Last Taken 01/11/20] glucosamine sulfate-methylsulfonylmethane 500 mg-500 mg tablet 2 ea PO DAILY joint health 01/12/20 [History Last Taken 01/11/20] isosorbide mononitrate 30 mg tablet,extended release 24 hr 60 mg PO UD 08/18/21 [History Last Taken Unknown] Allergy/AdvReac Type Severity Reaction Status Date / Time Penicillins Allergy Unknown Verified 06/30/23 13:03 Sulfa (Sulfonamide Allergy Unknown Verified 06/30/23 13:03 Antibiotics) morphine AdvReac Intermediate Shortness Verified 06/30/23 13:03 of breath lorazepam AdvReac Other Verified 06/30/23 13:03 Surgical History Hx of tonsillectomy Social History Smoking Status: Former smoker ROS ROS ED Constitutional Constitutional ED: Denies chills, fever(s) or sweats Eyes Eyes: Denies blurry vision or change in vision ENT ENT ED: Denies ear pain or sore throat Cardiovascular Cardiovascular: Reports chest pain; Denies palpitations or racing heartbeat Respiratory/Chest Respiratory/Chest: Reports cough; Denies dyspnea or sputum Gastrointestinal Gastrointestinal: Reports nausea; Denies abdominal pain, constipation, diarrhea or vomiting Genitourinary Genitourinary ED: Denies dysuria, hematuria or urinary frequency Musculoskeletal Musculoskeletal: Denies arthralgias, myalgias or neck pain Integumentary Denies abscess, Abrasions or rash Neurologic Neurologic: Denies headache(s), paresthesias or weakness Psychiatric Psychiatric: Denies anxiety, depression, suicidal ideation or suicidal thoughts Endocrine Endocrinology: Denies polydipsia or polyuria EXAM Physical Exam Const Vital Signs: 06/30/23 13:03 06/30/23 16:29 06/30/23 19:47 Temperature 98.3 F Temperature Source Temporal Pulse Rate 74 105 H 94 Respiratory Rate 14 17 17 Blood Pressure 129/56 H 176/65 H 124/62 H Blood Pressure Mean 80 102 82 Pulse Ox 98 100 90 Oxygen Delivery Method Room Air Room Air Room Air Oxygen Flow Rate (L/min) 06/30/23 19:50 06/30/23 19:58 06/30/23 19:58 Temperature Temperature Source Pulse Rate Respiratory Rate Blood Pressure Blood Pressure Mean Pulse Ox 93 86 93 Oxygen Delivery Method Room Air Room Air Nasal Cannula Oxygen Flow Rate (L/min) 2 06/30/23 20:01 Temperature Temperature Source Pulse Rate 91 Respiratory Rate 16 Blood Pressure 124/55 H Blood Pressure Mean 78 Pulse Ox 93 Oxygen Delivery Method Oxygen Flow Rate (L/min) Positive well nourished General Appearance ED: Negative for pallor HEENT Reports moist mucous membranes normocephalic and atraumatic Eyes PERRL Chest Wall inspection of chest normal Resp normal respiratory effort and clear to auscultation bilaterally Auscultation: Negative for rales, rhonchi or wheezes Cardio regular rate and regular rhythm GI normal to inspection, nondistended, normoactive bowel sounds Neuro oriented x3 and CN's II-XII intact bilaterally Sensorium / Orientation: awake and alert Motor Exam: strength 5/5 throughout Psych mental status grossly normal Skin no rashes or lesions noted General Skin Exam: Negative for jaundice or pallor Heart Score History: Slightly/Non-Suspicious ECG: Normal Age: >/= 65 years Risk Factors: >/= 3 Risk Factors or History of CAD Troponin: </= Normal Limit Score: 4 MDM MDM MDM Narrative Medical decision making narrative: Patient presenting with chest pain. This started about noon today. He states he does not have any cardiac history although there is a history of hyperlipidemia, NSTEMI, PAD, hypertension and previous tobacco use. Patient was initially triaged in the emergency room for nausea/vomiting and apparently had not told the nurse he was having chest pain. After discussing this with him he tells me it started about noon lasted about 3 minutes. I did review the medical record and again he has multiple medical problems and risk for cardiac disease. Differential includes ACS, CHF, PE, pneumonia, dehydration, electrolyte abnormalities, COVID-19. Patient medicated with Zofran. He is currently pain- free. EKG high-sensitivity troponin will be obtained. Basic lab work ordered as protocol in the waiting room. His CBC shows a normal white blood cell count, hemoglobin, platelets. CMP shows normal renal function and electrolytes. His LFTs are unremarkable. His total bilirubin is always elevated and is 1.2 today consistent with previous. Other LFTs are normal. Troponin was 5. D-dimer was elevated at 0.81 so CTA of the chest was performed and does not show any PE or dissection, or acute infiltrate. Patient's delta troponin came back at 58 therefore his changes greater than 20. Patient given aspirin 325 mg. In addition to this when I went back to evaluate the patient he was 87% on room air. For this reason he was given Decadron. Discussed with the hospitalist for admission. Impression: 1. COVID-19 2. Chest pain 3. Hypoxic respiratory failure Lab Data Labs: Laboratory Results - last 24 hr 06/30/23 06/30/23 06/30/23 14:40 17:20 19:08 WBC 11.3 H RBC 4.56 L Hgb 14.2 Hct 42.3 MCV 92.8 MCH 31.1 MCHC 33.6 RDW Std Deviation 44.1 H RDW Coeff of Suki 13.0 Plt Count 204 MPV 11.0 Immature Gran % (Auto) 0.400 Neut % (Auto) 76.1 H Lymph % (Auto) 11.2 L [place] % (Auto) 10.6 H Eos % (Auto) 1.3 Baso % (Auto) 0.4 Absolute Neuts (auto) 8.6 H Absolute Lymphs (auto) 1.27 Nucleated RBC % 0 D-Dimer Quant (PE/DVT) 0.81 H* Sodium 138 Potassium 4.1 Chloride 106 Carbon Dioxide 28.0 Anion Gap 4 L BUN 10 Creatinine 0.93 Est GFR (MDRD) Af Amer 100 Est GFR (MDRD) Non-Af 83 BUN/Creatinine Ratio 10.7 Glucose 115 H Calcium 8.5 Total Bilirubin 1.20 H AST 14 L ALT 28 Alkaline Phosphatase 59 Troponin I High Sens 5 Total Protein 7.9 Albumin 3.6 Globulin 4.3 H Albumin/Globulin Ratio 0.8 L Urine Color Yellow Urine Clarity Clear Urine pH 6.0 Ur Specific [place] 1.010 Urine Protein 15 H Urine Glucose (UA) Normal Urine Ketones Negative Urine Occult Blood Negative Urine Nitrite Negative Urine Bilirubin Negative Urine Urobilinogen Normal Ur Leukocyte Esterase Negative Urine RBC 0 SEEN Urine WBC 0 SEEN Ur Squamous Epith Cells 0 SEEN Urine Bacteria 0 SEEN Urine Mucus 0 SEEN 06/30/23 19:20 WBC RBC Hgb Hct MCV MCH MCHC RDW Std Deviation RDW Coeff of Suki Plt Count MPV Immature Gran % (Auto) Neut % (Auto) Lymph % (Auto) [place] % (Auto) Eos % (Auto) Baso % (Auto) Absolute Neuts (auto) Absolute Lymphs (auto) Nucleated RBC % D-Dimer Quant (PE/DVT) Sodium Potassium Chloride Carbon Dioxide Anion Gap BUN Creatinine Est GFR (MDRD) Af Amer Est GFR (MDRD) Non-Af BUN/Creatinine Ratio Glucose Calcium Total Bilirubin AST ALT Alkaline Phosphatase Troponin I High Sens 58 Total Protein Albumin Globulin Albumin/Globulin Ratio Urine Color Urine Clarity Urine pH Ur Specific [place] Urine Protein Urine Glucose (UA) Urine Ketones Urine Occult Blood Urine Nitrite Urine Bilirubin Urine Urobilinogen Ur Leukocyte Esterase Urine RBC Urine WBC Ur Squamous Epith Cells Urine Bacteria Urine Mucus Radiography Diagnostic Testing: Clinical Impression(s) from Imaging Studies Chest X-Ray 06/30/23 16:49 IMPRESSION: Emphysema without pneumonia or atelectasis. Electronically Signed: Chaitanya Machuca MD at 17:29 EST Reading Location ID and State: [id number] / [employer] Tel , Service support , Chest CTA 06/30/23 17:47 IMPRESSION: Normal CTA chest examination, without a demonstrated pulmonary embolism or arterial dissection. Electronically Signed: Chaitanya Machuca MD at 18:39 EST , Discharge Plan Triage Chief Complaint: Nausea/Vomiting ED Provider: Loco Dee Dx/Rx/DC Orders Primary Care Provider: Jessica Galaviz NP
[2023-06-30] MEDS: Ondansetron 4 MG/2 ML Vial IV (16:35)
--- NOTE | 2023-06-30 16:49 | RAD_ITS ---
STUDY: X-RAY CHEST REASON FOR EXAM: Male, 78 years old. chest pain TECHNIQUE: Single AP portable view of the chest. COMPARISON: None. FINDINGS: There is hyperinflation of the lungs consistent with chronic obstructive lung disease (COPD). There is no demonstrated pleural abnormality. Normal size heart. Normal mediastinum and elvin. Normal visualized pulmonary arteries. Normal visualized aortic arch and descending thoracic aorta. Normal visualized thoracic spine. Normal visualized ribs, clavicles, and shoulders. There is no demonstrated abnormality of the visualized soft tissue structures of the upper abdomen. RAD/Chest 1 View (Portable) IMPRESSION: Emphysema without pneumonia or atelectasis. Electronically Signed: Chaitanya Machuca MD at 17:29 EST ,
[2023-06-30 17:43] LABS: Troponin-I HS 5 pg/mL (3.0-78.0)
[2023-06-30 17:45] LABS: D-Dimer Quantitative (DVT/PE) 0.81 FEU/ug/m (0.27-0.49)
--- NOTE | 2023-06-30 17:47 | CT_ITS ---
STUDY: CTA CHEST REASON FOR EXAM: Male, 78 years old. chest pain PE suspected RADIATION DOSAGE (If Supplied By Facility): CTDIvol = ( 10.12 ) mGy, DLP = ( 470.14 ) mGycm TECHNIQUE: The examination was performed with the intravenous administration of IV 100mL Isovue-370. Post-processing of the angiographic images was performed, with multiplanar reformation and 3D reconstruction. Individualized dose optimization techniques were used for this CT. COMPARISON: 12/25/2021 FINDINGS: Normal enhancement of the main pulmonary artery and right and left pulmonary arteries. Normal enhancement of the bilateral peripheral pulmonary arteries. There is no demonstrated pulmonary embolism. Normal thoracic aorta and visualized great vessels. There is no demonstrated aortic dissection. Normal heart and pericardium. Normal mediastinum. Normal hilar regions. Normal visualized trachea and bronchi. The lungs are well expanded. Mild emphysema. Some bibasilar linear scarring. No noncalcified nodule or mass. Normal pleura. Normal chest wall structures. Status post vertebroplasty in the lower thoracic spine. Normal visualized upper abdomen. CT/CTA Chest W/WO Contrast IMPRESSION: Normal CTA chest examination, without a demonstrated pulmonary embolism or arterial dissection. Electronically Signed: Chaitanya Machuca MD at 18:39 EST ,
[2023-06-30 19:16] LABS: Bacteria 0 SEEN /hpf (None Seen); Mucous, Urine 0 SEEN /hpf (<or=2+); Red Blood Cells-Urine 0 SEEN /hpf (0-5); Squamous Epithelial Cells - UA 0 SEEN /hpf (0-5); White Blood Cells 0 SEEN /hpf (0-5)
[2023-06-30 19:17] LABS: Color, Urine Yellow (Yellow); Glucose, Dipstick Normal (Normal); Ketone-Dipstick Negative (Negative); Leukocyte Esterase-Dipstick Negative /ul (Negative); Nitrite-Dipstick Negative (Negative); Occult Blood-Urine Negative /ul (Negative); Protein-Dipstick 15 mg/dl (Negative); Urine Bilirubin Dipstick Negative (Negative); Urine Clarity Clear (Clear); Urine Urobilinogen Normal (Normal)
[2023-06-30 19:46] LABS: Troponin-I HS 58 pg/mL (3.0-78.0)
--- NOTE | 2023-06-30 19:56 | HP.PCM.HOS_ITS ---
HPI - General General Date of Admission: 06/30/23 Date of Service: 06/30/23 Chief Complaint: Chest pain, nausea and vomiting HPI Narrative TRI FRANK, is a 78 M with a past medical history of essential hypertension, hyperlipidemia, obesity; with BMI of 30.7 present on admission, history of coronary artery disease; status post non-ST elevation IA (2019), peripheral arterial disease, glaucoma, GERD, BPH, history of prostate cancer, os teoarthritis; with degenerative disc disease of the lumbar and cervical spine and history of tobacco abuse with subsequent COPD who presents to [facility] ER complaining of chest pain, nausea and vomiting. Mr. Caldwell reports his initial symptoms began approximately 6 days ago with a gradual onset of a viral upper of upper respiratory syndrome that have progressively worsened since that time and then ~8 hours prior to admission around noon earlier today on June 30, 2023, while he was at [facility] shortly after being diagnosed with COVID-19 he then decided to get a sandwich at the gas station and then started to have chest pain that was substernal, pressure-like, moderate and radiating into his left arm with nothing seeming to make the pain better or worse. The pain lasted more than 3 minutes so he activated EMS. He admits to associated nausea with 1 episode of vomiting with bilious emesis. In the ER he was noted to have an elevated D-dimer of 0.81 present on admission with his subsequent CTA of the chest negative for PE or other acute pathologic changes but there was evidence of chronic emphysema. His troponins also were noted to be trending from 5 pg/mL present on admission to 58 pg/mL on second check with a delta of greater than 20 suggestive of suspected ischemia with a confirmed non-ST elevation IA after his third troponin returned elevated at 174 pg/mL complicated by an active COVID-19 diagnosis in the setting of baseline COPD. He was then admitted to the PCU under droplet and contact precautions for a stay that is expected to be greater than 48 hours. [facility] Medical History COPD (chronic obstructive pulmonary disease) HTN (hypertension) PAD (peripheral artery disease) Home Medications amlodipine 5 mg tablet 10 mg PO DAILY blood pressure 01/27/14 [History Last Taken 01/11/20] vitamin B complex 1 ea PO DAILY vitamin 01/27/14 [History Last Taken 01/11/20] timolol maleate 0.5 % eye gel forming solution (Timoptic-XE) 1 drp QHS eye health 07/28/16 [History Last Taken 01/10/20] pantoprazole 40 mg tablet,delayed release 40 mg PO DAILY reflux 06/13/17 [History Last Taken 01/11/20] nitroglycerin 0.4 mg sublingual tablet 0.4 mg sublingual Q5M PRN Chest Pain 03/05/18 [History Last Taken 01/11/20] cyanocobalamin (vitamin B-12) 1,000 mcg tablet 1,000 mcg sublingual DAILY vit mckeon 06/24/18 [History Last Taken 01/11/20] tamsulosin 0.4 mg capsule (Flomax) 0.4 mg PO QHS prostate 06/24/18 [History Last Taken 01/10/20] metoprolol succinate 100 mg tablet,extended release 24 hr 100 mg PO DAILY #30 tabs 12/15/18 [Rx Last Taken 01/11/20 10:00] cholecalciferol (vitamin D3) 50 mcg (2,000 unit) capsule 2,000 unit PO DAILY vitamin 03/20/19 [History Last Taken 01/11/20] furosemide 20 mg tablet 20 mg PO DAILY diuretic 03/20/19 [History Last Taken 01/11/20] oxycodone-acetaminophen 10 mg-325 mg tablet 10 mg PO BID PRN Pain Score 1-05/0303/20/19 [History Last Taken 01/08/20] glucosamine sulfate-methylsulfonylmethane 500 mg-500 mg tablet 2 ea PO DAILY joint health 01/12/20 [History Last Taken 01/11/20] isosorbide mononitrate 30 mg tablet,extended release 24 hr 60 mg PO UD high b lood pressure 08/18/21 [History Last Taken Unknown] amlodipine 10 mg tablet 10 mg PO DAILY high blood pressure 06/30/23 [History Last Taken Unknown] dorzolamide 2 % eye drops 1 drp ophthalmic (eye) TID glaucoma 06/30/23 [History Last Taken Unknown] potassium chloride 20 mEq tablet,extended release (K-Tab) 20 meq PO DAILY potassium level 06/30/23 [History Last Taken Unknown] Allergy/AdvReac Type Severity Reaction Status Date / Time Penicillins Allergy Unknown Verified 06/30/23 13:03 Sulfa (Sulfonamide Allergy Unknown Verified 06/30/23 13:03 Antibiotics) morphine AdvReac Intermediate Shortness Verified 06/30/23 13:03 of breath lorazepam AdvReac Other Verified 06/30/23 13:03 Surgical History Hx of tonsillectomy Social History household members: none housing: apartment number of children: 1 service: Yes ([employer]) current occupational status: retired Smoking Status: Former smoker Prior Cardiac Testing/Procedures Prior Cardiac Testing/Procedures: Echocardiogram, Stenting and CTA Chest/CTA Coronary Angioplasty ROS ROS Narrative Review of systems: General: Denies fever or chills HENT: Denies headache, denies stuffy nose, denies sore throat EYES: Denies changes in vision Resp: Denies cough but admits to mild shortness of breath Cardiac: He admits to chest pain radiating into his left arm with a known history of coronary artery disease and previous non-ST elevation IA GI: He admits to nausea with bilious emesis : Denies changes in urination Extremity: Denies swelling Musculoskeletal: Feels somewhat generally weak and unwell Neuro: Denies any numbness/tingling Heme: Denies any bleeding or bruising Skin: Denies rashes Psychiatric: No complaints voiced with patient denying anxiety, depression or suicidal thoughts Endocrine: No polyuria, polydipsia or polyphagia The rest of the 14 point ROS was negative except for positives in HPI. Vital Signs Vital Signs Vital Signs: 06/30/23 13:03 06/30/23 16:29 06/30/23 19:47 Temperature 98.3 F Temperature Source Temporal Pulse Rate 74 105 H 94 Respiratory Rate 14 17 17 Blood Pressure 129/56 H 176/65 H 124/62 H Blood Pressure Mean 80 102 82 Pulse Ox 98 100 90 Oxygen Delivery Method Room Air Room Air Room Air 06/30/23 19:50 Temperature Temperature Source Pulse Rate Respiratory Rate Blood Pressure Blood Pressure Mean Pulse Ox 93 Oxygen Delivery Method Room Air Weight Weight: 190 lb 0.615 oz Body Mass Index (BMI) 30.7 Physical Exam Const alert, oriented x3, no apparent distress and average body habitus General Appearance: cooperative HEENT normocephalic, head/scalp atraumatic, hearing grossly normal bilaterally and moist oral mucous membranes Eyes PERRL and EOMs intact bilaterally Neck no lymphadenopathy and supple Resp Resp Narrative: Diminished breath sounds throughout with scattered rhonchi. Auscultation: rhonchi Cardio regular rate and regular rhythm GI normal to inspection, nondistended, normoactive bowel sounds, soft to palpation, non-tender and non-distended Extremity normal to inspection Skin Skin Narrative: And has no evidence of rash at this time. Neuro oriented x3, CN's II-XII intact bilaterally, moves all extremities and no focal motor deficits Sensorium / Orientation: awake, alert, oriented to person, oriented to place and oriented to time Speech: speech normal Motor Exam: strength 5/5 throughout Psych affect normal Results Medical Records Data Attestation: I reviewed the patient's medical records Lab / Micro Data Attestation: I reviewed the patient's lab results. 06/30/23 14:40 06/30/23 14:40 Labs: Laboratory Results - last 24 hr 06/30/23 14:40: WBC 11.3 H, RBC 4.56 L, Hgb 14.2, Hct 42.3, MCV 92.8, MCH 31.1, MCHC 33.6, RDW Std Deviation 44.1 H, RDW Coeff of Suki 13.0, Plt Count 204, MPV 11.0, Immature Gran % (Auto) 0.400, Neut % (Auto) 76.1 H, Lymph % (Auto) 11.2 L, [place] % (Auto) 10.6 H, Eos % (Auto) 1.3, Baso % (Auto) 0.4, Absolute Neuts (auto) 8.6 H, Absolute Lymphs (auto) 1.27, Nucleated RBC % 0, Sodium 138, Potassium 4.1, Chloride 106, Carbon Dioxide 28.0, Anion Gap 4 L, BUN 10, Creatinine 0.93, Est GFR (MDRD) Af Amer 100, Est GFR (MDRD) Non-Af 83, BUN/Creatinine Ratio 10.7, Glucose 115 H, Calcium 8.5, Total Bilirubin 1.20 H, AST 14 L, ALT 28, Alkaline Phosphatase 59, Total Protein 7.9, Albumin 3.6, Globulin 4.3 H, Albumin/Globulin Ratio 0.8 L 06/30/23 17:20: D-Dimer Quant (PE/DVT) 0.81 H*, Troponin I High Sens 5 06/30/23 19:08: Urine Color Yellow, Urine Clarity Clear, Urine pH 6.0, Ur Specific [place] 1.010, Urine Protein 15 H, Urine Glucose (UA) Normal, Urine Ketones Negative, Urine Occult Blood Negative, Urine Nitrite Negative, Urine Bilirubin Negative, Urine Urobilinogen Normal, Ur Leukocyte Esterase Negative, Urine RBC 0 SEEN, Urine WBC 0 SEEN, Ur Squamous Epith Cells 0 SEEN, Urine Bacteria 0 SEEN, Urine Mucus 0 SEEN 06/30/23 19:20: Troponin I High Sens 58 Imagaing Radiology Impression Chest X-Ray 06/30/23 16:49 IMPRESSION: Emphysema without pneumonia or atelectasis. Electronically Signed: Chaitanya Machuca MD at 17:29 EST Reading Location ID and State: [facility] / [employer] Tel , Service support , Chest CTA 06/30/23 17:47 IMPRESSION: Normal CTA chest examination, without a demonstrated pulmonary embolism or arterial dissection. Electronically Signed: Chaitanya Machuca MD at 18:39 EST Reading Location ID and State: [id number] / [employer] Tel , Service support , Assessment & Plan Assessment/Plan (1) COVID-19: (2) Chest pain at rest: (3) Dyspnea: QUALIFIERS: Dyspnea type: shortness of breath Qualified Code(s): R06.02 - Shortness of breath (4) Nausea & vomiting: QUALIFIERS: Vomiting type: bilious vomiting Qualified Code(s): R11.14 - Bilious vomiting PLAN: Plan 1. Acute COVID-19 infection - Admit to PCU under droplet and contact precautions. Continue IV Decadron and nebulizers plus add IV doxycycline. Give vitamin D3, vitamin C and zinc to optimize immune response. Give Tylenol as needed fever or mild to moderate level 1-5 out of 10 pain. 2. Non-ST elevation IA with troponin rising from 5 pg/mL to 58 pg/mL up to 174 pg/mL in the setting of known previous coronary artery disease; status post non- ST elevation IA (2019) complicating #1 - Resume aspirin begun in the ER plus add Plavix, statin and full-dose Lovenox. Check echocardiogram to evaluate left ventricular ejection fraction. Give low-dose Dilaudid as needed for severe level 6-10 out of 10 pain (given his listed allergy to morphine). Finally, we will consult the decorating machine tender on-call to see this patient on rounds in the a.m. for further recommendations regarding possible left heart catheterization with help appreciated in advance. 3. Acute hypoxic respiratory insufficiency arising from #1 & #2 in the setting of previous tobacco abuse; with subsequent COPD- Wean supplemental oxygen as tolerated. Patient has no evidence of acute exacerbation of COPD at this time. Continue as needed nebulizers as previous. 4. Essential hypertension - Continue home medications plus give as needed IV hydralazine for systolic blood pressure greater than 160 mmHg. 5. Hyperlipidemia - Resume statin and check lipid profile this admission in light of #2. 6. Obesity; with BMI of 30.7 present on admission - Weight loss will be recommended. Check TSH. 7. Peripheral arterial disease - Stable at this time. 8. Glaucoma - Continue eyedrops as previous. 9. GERD - Resume PPI. 10. BPH - Continue Flomax and watch for signs of urinary retention. 11. History of prostate cancer - Stable. 12 Osteoarthritis; with degenerative disc disease of the lumbar and cervical spine - Noted. 13. DVT prophylaxis - Patient on full dose Lovenox for #2. Total time: Approximately 55 minutes. Charges/Coding Visit Charges Inpatient E&M: 12234 Init Hosp L2
[2023-06-30] MEDS: Aspirin 81 MG TAB.CHEW 324 MG PO (20:09)
[2023-06-30] MEDS: dexAMETHasone 10 MG/ML Vial 6 MG IV (20:09)
[2023-06-30] MEDS: 0.9% Saline Lock 10 ML Syringe IV (22:35)
[2023-06-30] MEDS: Lactated Ringers 1,000 ML 75 ML IV (22:36)
[2023-06-30] MEDS: Latanoprost 0.005% 1 Bottle 1 DRP EACH EYE (23:34)
[2023-06-30] MEDS: Enoxaparin 100 MG/ML Syringe 90 MG SC (23:34)
[2023-06-30] MEDS: Timolol 0.5% 5ML OPTH.BTL 1 DRP OPHTHALMIC (23:35)
[2023-06-30] MEDS: Clopidogrel Bisulfate 75 MG Tablet PO (23:35)
[2023-06-30] MEDS: Zinc Sulfate 50 mg zinc (220 mg) ORAL capsule PO (23:36)
[2023-06-30] MEDS: Atorvastatin Calcium 40 MG Tablet PO (23:36)
[2023-06-30] MEDS: Metoprolol(XL)Succ 50 MG Tablet PO (23:36)
[2023-06-30] MEDS: Tamsulosin HCl 0.4 MG Capsule PO (23:36)
[2023-06-30] MEDS: Doxycycline 100 MG in Dextrose 5%-Water (250mL Bag) 250 ML 250 MG IV (23:39)
[2023-07-01] VITALS (10 sets, daily range): BP systolic 126–160; BP diastolic 60–72; PULSE 70–85; RESP 16–18; TEMP 35.9–36.3; O2SAT 96–97; BMI 30.6
--- NOTE | 2023-07-01 00:09 | NURSING ---
Pts primary rn aware of troponin of 174 at this time.
[2023-07-01 00:10] LABS: Troponin-I HS 174 pg/mL (3.0-78.0)
[2023-07-01] MEDS: Nitroglycerin Oint 1 INCH PACKET TD ×2 (02:17→06:45)
[2023-07-01 06:33] LABS: Absolute Lymphocyte Count 0.95 X10^3/uL (0.83-4.51); Absolute Neutrophil Count 4.8 X10^3/uL (2.0-7.7); Basophil# 0.01 X10^3/uL; Basophil% 0.2 % (0-1); Hematocrit 41.1 % (40-54); Hemoglobin 13.6 g/dL (13.0-16.5); Lymphocyte # 0.95 X10^3/ul (0.83-4.51); Lymphocyte % 16.2 % (19-41); Mean Corp Hgb Conc 33.1 g/dL (32-36); Mean Corpuscular Hgb 31.1 pg (27.0-32.0); Mean Corpuscular Volume 94.1 fL (80-94); Mean Platelet Vol. 11.4 fl (6.2-12.0); Monocyte# 0.15 X10^3/uL; Monocyte% 2.6 % (0-10); NRBC Flagged by Analyzer 0 % (0-5); Neutrophil # 4.75 X10^3/uL (2.7-7.7); Neutrophil % 80.7 % (47-70); Platelet Count 222 K/mm3 (150-450); RBC Distribution Width CV 13.1 % (11.6-14.6); Red Blood Count 4.37 M/mm3 (4.6-6.2); White Blood Count 5.9 K/mm3 (4.4-11.0)
[2023-07-01] MEDS: Isosorbide Mononitrate 60 MG Tablet PO (06:44)
[2023-07-01] MEDS: Clopidogrel Bisulfate 75 MG Tablet PO (06:44)
[2023-07-01] MEDS: Metoprolol(XL)Succ 100 MG Tablet PO (06:44)
[2023-07-01] MEDS: amLODIPine 10 MG Tablet PO (06:44)
--- NOTE | 2023-07-01 07:00 | NURSING ---
AM meds given early d/t possibility of heart cath today
[2023-07-01 07:06] LABS: Troponin-I HS 90 pg/mL (3.0-78.0)
[2023-07-01 07:16] LABS: Cholesterol 135 mg/dL (200); High Density Lipoprotein 37 mg/dL; Triglycerides 58 mg/dL; Very Low Density Lipoprotein 12 mg/dL (5-40)
--- NOTE | 2023-07-01 08:59 | PN.HOSP_ITS ---
Reason for Visit Reason for Visit: Diagnoses Shortness of breath (06/30/23) Chest pain, unspecified (06/30/23) Bilious vomiting (06/30/23) COVID-19 (06/30/23) Subjective Subjective Patient was seen and examined today, he is currently on 2 L of oxygen via nasal cannula, he does not complain of any chest pain or shortness of breath. Patient will be seen by cardiology today to determine if he needs a cardiac catheterization. Objective Data Objective Data Vital Signs: Vital Signs Temp Pulse Resp BP Pulse Ox O2 Del Method O2 Flow Rate 97.3 F L 78 16 160/71 H 97 Nasal Cannula 2 07/01/23 06:49 07/01/23 06:49 07/01/23 06:49 07/01/23 06:49 07/01/23 06:49 07/01/23 06:49 07/01/23 06:49 Oxygen Flow Rate (L/min) 2 Oxygen Delivery Method Nasal Cannula Weight: 86 kg Body Mass Index (BMI) 30.6 Intake & Output: Intake and Output for Last 24 Hours 06/29/23 06/30/23 07/01/23 23:59 23:59 23:59 Intake Total 607.5 / 607.5 Balance 607.5 / 607.5 Lab / Micro Data 07/01/23 05:10 06/30/23 14:40 Labs: Laboratory Results - last 24 hr 06/30/23 14:40: WBC 11.3 H, RBC 4.56 L, Hgb 14.2, Hct 42.3, MCV 92.8, MCH 31.1, MCHC 33.6, RDW Std Deviation 44.1 H, RDW Coeff of Suki 13.0, Plt Count 204, MPV 11.0, Immature Gran % (Auto) 0.400, Neut % (Auto) 76.1 H, Lymph % (Auto) 11.2 L, [place] % (Auto) 10.6 H, Eos % (Auto) 1.3, Baso % (Auto) 0.4, Absolute Neuts (auto) 8.6 H, Absolute Lymphs (auto) 1.27, Nucleated RBC % 0, Sodium 138, Potassium 4.1, Chloride 106, Carbon Dioxide 28.0, Anion Gap 4 L, BUN 10, Creatinine 0.93, Est GFR (MDRD) Af Amer 100, Est GFR (MDRD) Non-Af 83, BUN/Creatinine Ratio 10.7, Glucose 115 H, Calcium 8.5, Total Bilirubin 1.20 H, AST 14 L, ALT 28, Alkaline Phosphatase 59, Total Protein 7.9, Albumin 3.6, Globulin 4.3 H, Albumin/Globulin Ratio 0.8 L 06/30/23 17:20: D-Dimer Quant (PE/DVT) 0.81 H*, Troponin I High Sens 5 06/30/23 19:08: Urine Color Yellow, Urine Clarity Clear, Urine pH 6.0, Ur Specific [place] 1.010, Urine Protein 15 H, Urine Glucose (UA) Normal, Urine Ketones Negative, Urine Occult Blood Negative, Urine Nitrite Negative, Urine Bilirubin Negative, Urine Urobilinogen Normal, Ur Leukocyte Esterase Negative, Urine RBC 0 SEEN, Urine WBC 0 SEEN, Ur Squamous Epith Cells 0 SEEN, Urine Bacteria 0 SEEN, Urine Mucus 0 SEEN 06/30/23 19:20: Troponin I High Sens 58 06/30/23 23:35: Troponin I High Sens 174 H* 07/01/23 05:10: WBC 5.9, RBC 4.37 L, Hgb 13.6, Hct 41.1, MCV 94.1 H, MCH 31.1, MCHC 33.1, RDW Std Deviation 45.0 H, RDW Coeff of [place]uki 13.1, Plt Count 222, MPV 11.4, Immature Gran % (Auto) 0.300, Neut % (Auto) 80.7 H, Lymph % (Auto) 16.2 L, [place] % (Auto) 2.6, Eos % (Auto) 0.0, Baso % (Auto) 0.2, Absolute Neuts (auto) 4.8, Absolute Lymphs (auto) 0.95, Nucleated RBC % 0, Troponin I High Sens 90 H, Triglycerides 58, Cholesterol 135, LDL Cholesterol 86, VLDL Cholesterol 12, HDL Cholesterol 37 L Radiography Diagnostic Testing: Radiology Impression Chest X-Ray 06/30/23 16:49 IMPRESSION: Emphysema without pneumonia or atelectasis. Electronically Signed: Chaitanya Machuca MD at 17:29 EST , Chest CTA 06/30/23 17:47 IMPRESSION: Normal CTA chest examination, without a demonstrated pulmonary embolism or arterial dissection. Electronically Signed: Chaitanya Machuca MD at 18:39 EST , Physical Exam Const alert, oriented x3, no apparent distress, average body habitus and healthy appearing General Appearance: cooperative, well kempt and well developed Orientation / Consciousness: awake, oriented to person, oriented to place and oriented to time HEENT normocephalic, head/scalp atraumatic and moist oral mucous membranes Eyes PERRL, EOMs intact bilaterally and conjunctivae normal Neck supple, no JVD, thyroid normal and no carotid bruits General: trachea midline Resp normal respiratory effort, no retractions, no use of accessory muscles and clear to auscultation bilaterally Auscultation: Negative for rales, rhonchi or wheezes Cardio regular rate, regular rhythm, S1 normal heart sound, S2 normal heart sound, no murmurs, no rub and no gallops GI normal to inspection, nondistended, normoactive bowel sounds, soft to palpation, non-tender and non-distended Extremity no clubbing, cyanosis or edema Skin no rashes or lesions noted General Skin Exam: no breakdown Neuro oriented x3, CN's II-XII intact bilaterally, moves all extremities, no focal mot or deficits and no sensory deficits noted Sensorium / Orientation: awake, alert, oriented to person, oriented to place and oriented to time Speech: speech normal Psych affect normal Assessment & Plan Assessment/Plan (1) COVID-19: PLAN: Plan 1. COVID-19 infection without pneumonia-patient will remain in droplet precautions/COVID precautions, he will remain on dexamethasone, if his oxygen is able to be weaned off, I will not place him on remdesivir. I decided to stop his doxycycline #2 non-ST elevation RI-patient's troponin is now on the decline, he is not having any more chest pain, I discussed the case with cardiology and they advised that an echocardiogram should be obtained and he could have a stress test as an outpatient. I will cancel the cardiology consultation for now. #3 hypoxia-again patient's pulse ox is 97% on 2 L, I will attempt to wean his oxygen off, pulse ox will be monitored #4 essential hypertension-patient will remain on his present medications, medicines will be adjusted if necessary Total clinical time spent by myself addressing the patient's medical issues, reviewing all of his data, and collaborating with patient's care team: 35 minutes Charges/Coding Visit Charges Inpatient E&M: 82535 Subs Hosp L2
--- NOTE | 2023-07-01 09:07 | ECHOD_ITS ---
Reason For Study: Chest Pain Procedure This was a limited 2D transthoracic echocardiogram. The study was technically difficult. Exam performed portable in patient room. The exam was abbreviated due to the COVID 19 protocol. Left Ventricle Normal size and thickness. The left ventricular ejection fraction is 65 %. Unable to assess diastolic function based on available data. Right Ventricle Normal right ventricle. Atria The left and right atria are normal. Mitral Valve Trivial mitral valve insufficiency. Tricuspid Valve Trivial tricuspid valve insufficiency. Unable to estimate RV systolic pressure due to insufficient tricuspid regurgitant envelope. Aortic Valve Trisinus/trileaflet aortic valve. Aortic sclerosis, no stenosis. Pulmonic Valve The pulmonic valve is not well visualized. Great Vessels The aortic root is not well visualized. Pericardium/Pleural No pericardial effusion. MMode/2D Measurements & Calculations LVIDd: 4.2 cm IVSd: 0.99 cm LVIDs: 2.4 cm LVPWd: 0.98 cm FS: 41.8 % ECHO/Echo Complete Interpretation Summary The left ventricular ejection fraction is 65 %. Aortic sclerosis, no stenosis. The study was technically difficult. Ordering Physician: Yaw Yao Referring Physician: Jessica Galaviz Performed By: Mary Ramires, DARYA, RVT
[2023-07-01 10:27] LABS: ALB/GLOB Ratio 0.8 RATIO (0.9-2.4); AST(SGOT) 14 U/L (15-37); Alanine Aminotransfer ALT/SGPT 26 U/L (16-61); Albumin, Serum 3.2 g/dL (3.2-5.0); Alkaline Phosphatase 56 U/L (45-117); Anion Gap 5 (5-15); BUN 11 mg/dL (7-18); BUN/Creat Ratio 13.8 RATIO (10-20); Calcium,Total 8.6 mg/dL (8.5-10.1); Chloride 109 mmol/L (98-107); EST Glomerular Filtration Rate 100 mL/min (>60); Est Glom Filt Rate - Afr Amer 121 mL/min (>60); Estimated Creatinine Clearance 67.57 ml/min; Globulin 4.2 g/dL (2.2-4.2); Glucose 139 mg/dL (74-106); Magnesium 2.3 mg/dL (1.6-2.6); Phosphorus 1.4 mg/dL (2.5-4.9); Potassium 4.2 mmol/L (3.5-5.1); Protein, Total 7.4 g/dL (6.4-8.2); Sodium Level 140 mmol/L (136-145); Thyroid Stim Hormone (TSH) 0.34 uIU/mL (0.358-3.74)
[2023-07-01] MEDS: Enoxaparin 100 MG/ML Syringe 90 MG SC ×2 (11:31→22:00)
[2023-07-01] MEDS: Ascorbic Acid 500 MG Tablet 1000 MG PO ×2 (11:31→16:01)
[2023-07-01] MEDS: Potassium Chloride Oral Tablet 20 MEQ PO (11:32)
[2023-07-01] MEDS: dexAMETHasone 10 MG/ML Vial 6 MG IV ×2 (11:32→21:57)
[2023-07-01] MEDS: Oxycodone/Apap 5/325 Tablet PO ×2 (11:32→21:51)
[2023-07-01] MEDS: Cyanocobalamin 500 MCG Tablet 1000 MCG PO (11:33)
[2023-07-01] MEDS: Cholecalciferol (VIT D3) 25 MCG TABLET (1,000 UNITS) 50 MCG PO (11:33)
[2023-07-01] MEDS: Zinc Sulfate 50 mg zinc (220 mg) ORAL capsule PO (11:33)
[2023-07-01] MEDS: Furosemide 20 MG Tablet PO (11:34)
[2023-07-01] MEDS: Pantoprazole Sodium 40 MG Tablet PO (11:34)
[2023-07-01] MEDS: Vitamin B Comp W-C Capsule 1 CAP PO (11:34)
[2023-07-01] MEDS: Flu Vacc QS2023-24(65YR UP)/PF 240 MCG/0.7 ML Syringe IM (11:41)
--- NOTE | 2023-07-01 11:50 | CASEMGMT ---
RN GABRIELLA Face to Face with patient for initial transition planning/care coordination assessment. RN CM introduced self and role at [facility]. Patient lying in bed, alert and oriented. Patient willing to participate in assessment and is able to answer all questions appropriately. Care providers, pharmacy, and demographics verified. Patient wishes to discharge home, denies need for home health at this time. Patient states he has no further needs or concerns at this time. CM to follow for discharge planning needs that may arise. PCP: BRAVO Galaviz Specialists: Cristobal, ict support engineer; Rico community relations liaison Preferred Pharmacy: [facility] Insurance: [employer] Prescription Benefit: yes Living Will/HPOA: yes, daughter Meliza Robles LNOK: daugther Living Arrangements: Patient lives alone in a first floor apartment with no steps to enter. Patient is independent at home. Transportation: self, daughter DME/HHC: Patient has cane, wheelchair, cpap, home oxygen at 2 lpm at HS. No previous HHC or SNF. Will monitor for increase in home oxygen. Disposition Plan: Patient to discharge home with family support and follow-up plans in place. Kym AGRAWAL, RN, CM
[2023-07-01] MEDS: Timolol 0.5% 5ML OPTH.BTL 1 DRP OPHTHALMIC ×2 (11:52→22:01)
[2023-07-01] MEDS: Tamsulosin HCl 0.4 MG Capsule PO (21:50)
[2023-07-01] MEDS: Metoprolol(XL)Succ 50 MG Tablet PO (21:50)
[2023-07-01] MEDS: Atorvastatin Calcium 40 MG Tablet PO (21:51)
[2023-07-01] MEDS: 0.9% Saline Lock 10 ML Syringe IV (21:58)
[2023-07-01] MEDS: Latanoprost 0.005% 1 Bottle 1 DRP EACH EYE (22:00)
[2023-07-02] VITALS (10 sets, daily range): BP systolic 138–158; BP diastolic 45–79; PULSE 66–92; RESP 16–18; TEMP 35.8–36.8; O2SAT 93–95; BMI 30.5
[2023-07-02] MEDS: Cyanocobalamin 500 MCG Tablet 1000 MCG PO (09:32)
[2023-07-02] MEDS: Potassium Chloride Oral Tablet 20 MEQ PO (09:32)
[2023-07-02] MEDS: dexAMETHasone 10 MG/ML Vial 6 MG IV (09:32)
[2023-07-02] MEDS: Enoxaparin 100 MG/ML Syringe 90 MG SC (09:32)
[2023-07-02] MEDS: Metoprolol(XL)Succ 100 MG Tablet PO (09:33)
[2023-07-02] MEDS: Vitamin B Comp W-C Capsule 1 CAP PO (09:33)
[2023-07-02] MEDS: Furosemide 20 MG Tablet PO (09:33)
[2023-07-02] MEDS: Isosorbide Mononitrate 60 MG Tablet PO (09:33)
[2023-07-02] MEDS: amLODIPine 10 MG Tablet PO (09:33)
[2023-07-02] MEDS: Clopidogrel Bisulfate 75 MG Tablet PO (09:33)
[2023-07-02] MEDS: Ascorbic Acid 500 MG Tablet 1000 MG PO ×2 (09:33→16:58)
[2023-07-02] MEDS: Pantoprazole Sodium 40 MG Tablet PO (09:33)
[2023-07-02] MEDS: Zinc Sulfate 50 mg zinc (220 mg) ORAL capsule PO (09:34)
[2023-07-02] MEDS: Cholecalciferol (VIT D3) 25 MCG TABLET (1,000 UNITS) 50 MCG PO (09:34)
[2023-07-02] MEDS: Timolol 0.5% 5ML OPTH.BTL 1 DRP OPHTHALMIC ×2 (09:34→21:29)
[2023-07-02] MEDS: Nitroglycerin Oint 1 INCH PACKET TD ×2 (12:29→16:59)
--- NOTE | 2023-07-02 16:26 | PN.HOSP_ITS ---
Reason for Visit Reason for Visit: Diagnoses Shortness of breath (06/30/23) Chest pain, unspecified (06/30/23) Bilious vomiting (06/30/23) COVID-19 (06/30/23) Subjective Subjective Patient was seen and examined today, nursing states the patient appeared to have some confusion this morning, yesterday when I was talking to the patient he also exhibited some confusion. I talked to the patient's daughter by phone today and she states she has noticed that her father has been confused at times over the past year, she would like to talk with his physician about this but she states the physician does not seem to want to discuss this with her. Patient remains on room air at this time, he has no complaints of any chest pain or shortness of breath. Objective Data Objective Data Vital Signs: Vital Signs Temp Pulse Resp BP Pulse Ox O2 Del Method O2 Flow Rate 97.1 F L 70 18 158/62 H 94 Room Air 93 07/02/23 12:15 07/02/23 12:29 07/02/23 12:15 07/02/23 12:29 07/02/23 12:15 07/02/23 14:00 07/02/23 14:00 Oxygen Flow Rate (L/min) 93 Oxygen Delivery Method Room Air Weight: 85.8 kg Body Mass Index (BMI) 30.5 Intake & Output: Intake and Output for Last 24 Hours 06/30/23 07/01/23 07/02/23 23:59 23:59 23:59 Intake Total 1905.0 / 1905.0 600 / 600 Output Total 200 / 200 Balance 1705.0 / 1705.0 600 / 600 Lab / Micro Data 07/01/23 05:10 07/01/23 05:10 Radiography Diagnostic Testing: Radiology Impression Echocardiogram 07/01/23 09:07 Interpretation Summary The left ventricular ejection fraction is 65 %. Aortic sclerosis, no stenosis. The study was technically difficult. Ordering Physician: Yaw Yao Referring Physician: Jessica Galaviz Performed By: Mary Ramires, DARYA, RVT Physical Exam Narrative alert,, no apparent distress, average body habitus and healthy appearing General Appearance: cooperative, well kempt and well developed Orientation / Consciousness: awake, oriented to person, oriented to place and oriented to time HEENT normocephalic, head/scalp atraumatic and moist oral mucous membranes Eyes PERRL, EOMs intact bilaterally and conjunctivae normal Neck supple, no JVD, thyroid normal and no carotid bruits General: trachea midline Resp normal respiratory effort, no retractions, no use of accessory muscles and clear to auscultation bilaterally Auscultation: Negative for rales, rhonchi or wheezes Cardio regular rate, regular rhythm, S1 normal heart sound, S2 normal heart sound, no murmurs, no rub and no gallops GI normal to inspection, nondistended, normoactive bowel sounds, soft to palpation, non-tender and non-distended Extremity no clubbing, cyanosis or edema Skin no rashes or lesions noted General Skin Exam: no breakdown Neuro CN's II-XII intact bilaterally, moves all extremities, no focal motor deficits and no sensory deficits noted Sensorium / Orientation: awake, alert, oriented to person, oriented to place Speech: speech normal Psych affect normal Assessment & Plan Assessment/Plan (1) COVID-19: PLAN: Plan 1. COVID-19 infection without pneumonia-patient will remain in droplet precautions/COVID precautions, I do not feel the patient needs dexamethasone at this time, I stopped it #2 non-ST elevation [place]-patient will be set up for a nuclear stress test on Tuesday #3 hypoxia-resolved at this time, patient is on room air #4 essential hypertension-patient will remain on his present medications, medicines will be adjusted if necessary #5 evidence of mild cognitive impairment-I have decided to place the patient on Aricept, I discussed this with his daughter Total clinical time spent by myself addressing the patient's medical issues, reviewing all of his data, and collaborating with patient's care team: 35 christophe steen Charges/Coding Visit Charges Inpatient E&M: 40774 Subs Hosp L2
--- NOTE | 2023-07-02 20:30 | NURSING ---
pt confused and agitated at this time, wanting to leave and turn off truck lights so the battery does not . This RN and nightshift aid tried to redirect and orient pt of arriving to the Hospital via ambulance. Pt is unable to be redirected and starts cussing at RN and aid
[2023-07-02] MEDS: Haloperidol Lactate 5 MG/ML Vial 1 MG IV (21:02)
--- NOTE | 2023-07-02 21:15 | NURSING ---
This RN talked to daughter and had pt talk to her as well, daughter states that this is normal for pt to become confused and agitated at times, MD came to pts room and attempted to educate pt on the importance of staying, pt still unable to understand and agitated. MD ordered 1mg of Haldol to be given stat
[2023-07-02] MEDS: Atorvastatin Calcium 40 MG Tablet PO (21:22)
[2023-07-02] MEDS: Tamsulosin HCl 0.4 MG Capsule PO (21:22)
[2023-07-02] MEDS: Donepezil HCl 5 MG Tablet PO (21:22)
[2023-07-02] MEDS: Metoprolol(XL)Succ 50 MG Tablet PO (21:22)
[2023-07-02] MEDS: Oxycodone/Apap 5/325 Tablet PO (21:23)
[2023-07-02] MEDS: Latanoprost 0.005% 1 Bottle 1 DRP EACH EYE (21:29)
[2023-07-03 02:20] VITALS: BP 164/69; PULSE 77; RESP 16; TEMP 36.4; O2SAT 94
[2023-07-03] MEDS: Nitroglycerin Oint 1 INCH PACKET TD ×3 (02:51→18:12)
[2023-07-03 05:13] VITALS: BMI 30.5
[2023-07-03 08:30] VITALS: BP 156/59; PULSE 56; RESP 17; TEMP 36; O2SAT 98
[2023-07-03] MEDS: Enoxaparin 100 MG/ML Syringe 90 MG SC ×2 (10:50→21:39)
[2023-07-03] MEDS: Ascorbic Acid 500 MG Tablet 1000 MG PO ×2 (10:51→18:13)
[2023-07-03] MEDS: Cyanocobalamin 500 MCG Tablet 1000 MCG PO (10:51)
[2023-07-03] MEDS: amLODIPine 10 MG Tablet PO (10:51)
[2023-07-03] MEDS: Cholecalciferol (VIT D3) 25 MCG TABLET (1,000 UNITS) 50 MCG PO (10:51)
[2023-07-03] MEDS: Pantoprazole Sodium 40 MG Tablet PO (10:51)
[2023-07-03] MEDS: Vitamin B Comp W-C Capsule 1 CAP PO (10:52)
[2023-07-03] MEDS: Isosorbide Mononitrate 60 MG Tablet PO (10:52)
[2023-07-03] MEDS: Potassium Chloride Oral Tablet 20 MEQ PO (10:52)
[2023-07-03] MEDS: Furosemide 20 MG Tablet PO (10:53)
[2023-07-03] MEDS: Clopidogrel Bisulfate 75 MG Tablet PO (10:54)
[2023-07-03] MEDS: Zinc Sulfate 50 mg zinc (220 mg) ORAL capsule PO (10:55)
[2023-07-03] MEDS: Timolol 0.5% 5ML OPTH.BTL 1 DRP OPHTHALMIC ×2 (10:56→21:44)
--- NOTE | 2023-07-03 11:08 | PCM.PN.HOSP ---
Reason for Visit Reason for Visit: Diagnoses Shortness of breath (06/30/23) Chest pain, unspecified (06/30/23) Bilious vomiting (06/30/23) COVID-19 (06/30/23) Subjective Subjective Seen and examined today, he exhibited some confusion today when I talked to him in his room, initially he stated he did not know where he was and then he corrected himself. Patient denies any chest pain or shortness of breath. Patient remains on room air. Objective Data Objective Data Vital Signs: Vital Signs Temp Pulse Resp BP Pulse Ox O2 Del Method O2 Flow Rate 96.8 F L 56 L 17 156/59 H 98 Room Air 93 07/03/23 08:30 07/03/23 08:30 07/03/23 08:30 07/03/23 08:30 07/03/23 08:30 07/03/23 08:30 07/02/23 14:00 Oxygen Flow Rate (L/min) 93 Oxygen Delivery Method Room Air Weight: 85.9 kg Body Mass Index (BMI) 30.5 Intake & Output: Intake and Output for Last 24 Hours 07/01/23 07/02/23 07/03/23 23:59 23:59 23:59 Intake Total 1905.0 / 1905.0 1100 / 1100 Output Total 200 / 200 Balance 1705.0 / 1705.0 1100 / 1100 Lab / Micro Data 07/01/23 05:10 07/01/23 05:10 Physical Exam Narrative alert,, no apparent distress, average body habitus and healthy appearing General Appearance: cooperative, well kempt and well developed Orientation / Consciousness: awake, oriented to person, oriented to place and oriented to time HEENT normocephalic, head/scalp atraumatic and moist oral mucous membranes Eyes PERRL, EOMs intact bilaterally and conjunctivae normal Neck supple, no JVD, thyroid normal and no carotid bruits General: trachea midline Resp normal respiratory effort, no retractions, no use of accessory muscles and clear to auscultation bilaterally Auscultation: Negative for rales, rhonchi or wheezes Cardio regular rate, regular rhythm, S1 normal heart sound, S2 normal heart sound, no murmurs, no rub and no gallops GI normal to inspection, nondistended, normoactive bowel sounds, soft to palpation, non-tender and non-distended Extremity no clubbing, cyanosis or edema Skin no rashes or lesions noted General Skin Exam: no breakdown Neuro CN's II-XII intact bilaterally, moves all extremities, no focal motor deficits and no sensory deficits noted Sensorium / Orientation: awake, alert, oriented to person, oriented to place Speech: speech normal Psych affect normal Assessment & Plan Assessment/Plan (1) COVID-19: PLAN: Plan 1. COVID-19 infection without pneumonia-patient will remain in droplet precautions/COVID precautions, patient remains on room air, he does not complain of any symptoms of COVID #2 non-ST elevation [place]-patient will be set up for a nuclear stress test on Tuesday, I discussed this with cardiology #3 hypoxia-resolved at this time, patient is on room air #4 essential hypertension-patient will remain on his present medications, medicines will be adjusted if necessary #5 evidence of mild cognitive impairment-patient is currently on Aricept Total clinical time spent by myself addressing the patient's medical issues, reviewing all of his data, and collaborating with patient's care team: 25 minutes Charges/Coding Visit Charges Inpatient E&M: 17257 Subs Hosp L1
[2023-07-03] MEDS: Oxycodone/Apap 5/325 Tablet PO ×2 (12:19→14:51)
[2023-07-03] MEDS: Dorzolamide 2% 10ml Bottle 1 DRP OPHTHALMIC ×2 (14:51→21:45)
[2023-07-03 14:54] VITALS: BP 159/58; PULSE 54; RESP 16; TEMP 36.2; O2SAT 95
[2023-07-03 21:34] VITALS: BP 159/80; PULSE 59; RESP 18; TEMP 36.6; O2SAT 97
[2023-07-03] MEDS: Atorvastatin Calcium 40 MG Tablet PO (21:38)
[2023-07-03] MEDS: MELATONIN 3 MG TABLET PO (21:38)
[2023-07-03] MEDS: Donepezil HCl 5 MG Tablet PO (21:38)
[2023-07-03] MEDS: Tamsulosin HCl 0.4 MG Capsule PO (21:39)
[2023-07-03] MEDS: Latanoprost 0.005% 1 Bottle 1 DRP EACH EYE (21:44)
[2023-07-04 00:28] VITALS: BP 159/67; PULSE 52; RESP 16; TEMP 36.6; O2SAT 94
--- NOTE | 2023-07-04 05:55 | EKG12_ITS ---
Test Reason : REPEAT CP Blood Pressure : / mmHG Vent. Rate : 110 BPM Atrial Rate : 110 BPM P-R Int : 196 ms QRS Dur : 088 ms QT Int : 330 ms P-R-T Axes : 071 047 063 degrees QTc Int : [address] depression, consider subendocardial injury Abnormal ECG When compared with ECG of 30-JUN-2023 16:30, MANUAL COMPARISON REQUIRED, DATA IS UNCONFIRMED Confirmed by HOA WASHINGTON, ODALYS ([id number]), supervising film or videotape editor ANA MURRY ([id number]) on 07/11/2023 1:01:19 P M Referred By: MOJGAN Confirmed By:MOHAN CAMARA MD
[2023-07-04 06:00] VITALS: BMI 30.6
[2023-07-04] MEDS: Clopidogrel Bisulfate 75 MG Tablet PO ×2 (06:32→10:09)
[2023-07-04] MEDS: Dorzolamide 2% 10ml Bottle 1 DRP OPHTHALMIC ×2 (06:33→15:49)
[2023-07-04 06:35] VITALS: BP 164/63; PULSE 64; RESP 16; TEMP 36.6; O2SAT 96
[2023-07-04 10:03] VITALS: BP 171/72; PULSE 69; RESP 15; TEMP 36.6; O2SAT 97
[2023-07-04] MEDS: Isosorbide Mononitrate 60 MG Tablet PO (10:07)
[2023-07-04] MEDS: Enoxaparin 100 MG/ML Syringe 90 MG SC (10:08)
[2023-07-04] MEDS: Zinc Sulfate 50 mg zinc (220 mg) ORAL capsule PO (10:08)
[2023-07-04] MEDS: amLODIPine 10 MG Tablet PO (10:08)
[2023-07-04] MEDS: Vitamin B Comp W-C Capsule 1 CAP PO (10:09)
[2023-07-04] MEDS: Pantoprazole Sodium 40 MG Tablet PO (10:09)
[2023-07-04] MEDS: Ascorbic Acid 500 MG Tablet 1000 MG PO ×2 (10:09→15:48)
[2023-07-04] MEDS: Cholecalciferol (VIT D3) 25 MCG TABLET (1,000 UNITS) 50 MCG PO (10:09)
[2023-07-04] MEDS: Cyanocobalamin 500 MCG Tablet 1000 MCG PO (10:10)
[2023-07-04] MEDS: Potassium Chloride Oral Tablet 20 MEQ PO (10:10)
[2023-07-04] MEDS: Furosemide 20 MG Tablet PO (10:10)
[2023-07-04] MEDS: Timolol 0.5% 5ML OPTH.BTL 1 DRP OPHTHALMIC (10:11)
[2023-07-04 12:09] VITALS: O2SAT 97; O2SAT 99
--- NOTE | 2023-07-04 15:18 | DS.PCM_ITS ---
Providers Date of Admission: 06/30/23 Date of Discharge: 07/04/23 Primary Care Physician: Jessica Galaviz NP Reason For Visit: ACUTE COVID 19, CHEST PAIN W/UPWARD TRENDING Diagnosis Discharge Diagnosis (1) COVID-19: Status: Acute Code(s): U07.1 - COVID-19 Medications at Discharge Home Medications vitamin B complex 1 ea PO DAILY vitamin 01/27/14 timolol maleate 0.5 % eye gel forming solution (Timoptic-XE) 1 drp QHS eye health 07/28/16 pantoprazole 40 mg tablet,delayed release 40 mg PO DAILY reflux 06/13/17 nitroglycerin 0.4 mg sublingual tablet 0.4 mg sublingual Q5M PRN Chest Pain 03/05/18 cyanocobalamin (vitamin B-12) 1,000 mcg tablet 1,000 mcg sublingual DAILY vitamin 06/24/18 tamsulosin 0.4 mg capsule (Flomax) 0.4 mg PO QHS prostate 06/24/18 metoprolol succinate 100 mg tablet,extended release 24 hr 100 mg PO DAILY #30 tabs 12/15/18 cholecalciferol (vitamin D3) 50 mcg (2,000 unit) capsule 2,000 unit PO DAILY vitamin 03/20/19 furosemide 20 mg tablet 20 mg PO DAILY diuretic 03/20/19 oxycodone-acetaminophen 10 mg-325 mg tablet 10 mg PO BID PRN Pain Score 1-05/0303/20/19 glucosamine sulfate-methylsulfonylmethane 500 mg-500 mg tablet 2 ea PO DAILY [facility] 01/12/20 isosorbide mononitrate 30 mg tablet,extended release 24 hr 60 mg PO UD high blood pressure 08/18/21 amlodipine 10 mg tablet 10 mg PO DAILY high blood pressure 06/30/23 dorzolamide 2 % eye drops 1 drp ophthalmic (eye) TID glaucoma 06/30/23 potassium chloride 20 mEq tablet,extended release (K-Tab) 20 meq PO DAILY potassium level 06/30/23 aspirin 81 mg chewable tablet 81 mg PO DAILY #1 TAB 07/04/23 atorvastatin 40 mg tablet 40 mg PO QHS #0 tabs 07/04/23 clopidogrel 75 mg tablet (Plavix) 75 mg PO DAILY #30 tabs 07/04/23 lisinopril 20 mg tablet 20 mg PO DAILY #30 tabs 07/04/23 Hospital Course Procedures 2-D Echocardiogram and EKG Summary of Care Provided Minutes Spent on Discharge: 40 Hospital Course: Mr. Bravo is a 78-year-old white male who presented to the emergency department at [facility] on 06/30/2023 complaining of chest pain. He stated it radiated to his left arm that happened at noon on the day of presentation. He was diagnosed with COVID-19 infection on the morning of admission at [facility] and was on his way home when he decided to get a sandwich at the gas station. He sat in his car and developed chest pain that lasted for about 3 minutes and then decided to call the EMS. By the time they a rrived his chest pain had improved and when he was seen in the emergency department his chest pain had resolved and he had no recurrences while he was hospitalized. His vital signs on presentation were unremarkable however during his hospitalization he has been markedly hypertensive and when I look back at previous documentation of blood pressure while hospitalized his blood pressures been elevated then as well. His cardiac enzymes were cycled with an initial troponin of 5 with a repeat of 58 and a peak of 174. He was initially placed on full dose anticoagulation with Lovenox and Plavix by the admitting physician. Cardiology was consulted. The case was discussed with cardiology as they felt he did not need a consult at that time and they recommended an echocardiogram and a stress test. His echocardiogram was performed and demonstrated an EF of 65% as well as aortic sclerosis with no stenosis. No wall motion abnormality was identified. Unfortunately, with his positive COVID status we cannot perform a stress test until he is COVID-negative or been 10 days post diagnosis. With his diagnosis being on 06/30/2023 he is allowed to come out of precautions on 07/09/2023 at 10 days. I have asked that he wear a mask in public until the . With regards to his cardiac testing, I discussed the case further with cardiology and they recommended discharging him on aspirin and Plavix as well as a statin and improved blood pressure control with outpatient follow-up for outpatient testing noninvasively. He has an appointment scheduled to see Dr. Decker, who is a product safety consultant with whom I discussed the above, on 08/09/2022. The patient was instructed to come back to the emergency department if he develops any further coronary symptoms including chest pain or acute onset shortness of breath. Throughout his hospitalization he did quite well with regards to his COVID-19 symptoms and only had some URI type symptoms. We did an ambulatory pulse ox prior to discharge and he required no oxygen with rest or exertion. Prescriptions for Plavix, atorvastatin, and lisinopril was sent to his local pharmacy and he was instructed to lease picker aspirin to take 1 tablet 81 mg daily. He is to follow-up with his primary care physician within the next 2 weeks. Discharge diagnoses: Acute COVID-19 infection Chest pain Troponin elevation of unknown significance Hypertension Hyperlipidemia Metabolic/toxic encephalopathy COPD Peripheral arterial disease Physical Exam Const alert, oriented x3, no apparent distress, no limitations, healthy appearing and well nourished Constitutional Narrative: Obese, elderly, white male, reclining in a chair watching television, appears comfortable and nontoxic, currently oriented x 3 General Appearance: cooperative, comfortable, well kempt and well developed Orientation / Consciousness: awake, oriented to person, oriented to place and oriented to time Exam Limitations: no limitations Nutritional Appearance: obese HEENT normocephalic, head/scalp atraumatic and moist oral mucous membranes HEENT Narrative: Moderate hearing loss, dentition is poor, Mallampati is 2, no thrush Eyes PERRL, EOMs intact bilaterally and conjunctivae normal Eyes Narrative: No scleral icterus Neck no lymphadenopathy and supple Neck Narrative: Trachea midline, no thyroid enlargement Resp normal respiratory effort, no retractions, no use of accessory muscles and clear to auscultation bilaterally Resp Narrative: Diffusely diminished but clear Auscultation: Negative for rales, rhonchi or wheezes Cardio regular rate, regular rhythm, S1 normal heart sound, S2 normal heart sound, no murmurs, no rub, no gallops and no clicks GI normal to inspection, nondistended, normoactive bowel sounds, soft to palpation and non-tender Extremity no clubbing, cyanosis or edema Extremity Narrative: 2+ pedal pulses Skin no rashes or lesions noted, no wounds, skin turgor normal and no jaundice Neuro oriented x3, moves all extremities, no focal motor deficits and no sensory deficits noted Sensorium / Orientation: oriented to person, oriented to place and oriented to time Speech: speech normal Psych affect normal Psych Narrative: Very pleasant, eye contact is good, patient interacts appropriately Weight / BMI Weight Weight: 86 kg Body Mass Index (BMI) 30.6 ABG / Lab / Microbiology Data 07/01/23 05:10 07/01/23 05:10 D/C Instructions Discharge Diet: Low fat / Low cholesterol Discharge Activity: Return to Normal Activity Return to work on: 07/09/23 Meaningful Use Info Meaningful Use Diagnoses (Choose all that apply): None applicable Discharge Plan Admission Admit Date/Time: 06/30/23 20:36 Primary Reason for Your Visit: Nausea and vomiting Attending Provider: Idania John Primary Care Provider: Jessica Galaviz NP Consulting Providers: Mihir Harden; Yaw Yao Instructions Additional Instructions / Restrictions: 1. Please wear a mask while in public places until 07/09/2023 2. Please follow-up with cardiology for scheduled appointment below so we can get an outpatient stress test. 3. Please return to the emergency department if you have chest pain. Discharge Orders/Prescriptions Prescriptions: New lisinopril 20 mg tablet 20 mg PO DAILY Qty: 30 1RF atorvastatin 40 mg Tablet 40 mg PO QHS Qty: 0 0RF aspirin 81 mg tablet,chewable 81 mg PO DAILY Qty: 1 0RF clopidogrel [Plavix] 75 mg tablet 75 mg PO DAILY Qty: 30 1RF Continued vitamin B complex 1 EACH capsule 1 ea PO DAILY Patient Comments: SUPPLEMENT timolol maleate [Timoptic-XE] 1 DROP gel forming solution 1 drp Each Eye QHS pantoprazole 40 MG tablet 40 mg PO DAILY nitroglycerin 0.4 MG tablet 0.4 mg sublingual Q5M PRN (Reason: Chest Pain) cyanocobalamin (vitamin B-12) 1,000 MCG tablet 1,000 mcg sublingual DAILY Patient Comments: TAKE ONE TABLET BY MOUTH EVERY DAY tamsulosin [Flomax] 0.4 MG capsule 0.4 mg PO QHS metoprolol succinate 100 MG tablet 100 mg PO DAILY Qty: 30 0RF Rx Instructions: 100 mg QAM, 50 mg QHS furosemide 20 MG tablet 20 mg PO DAILY cholecalciferol (vitamin D3) 2,000 UNIT capsule 2,000 unit PO DAILY oxycodone-acetaminophen 1 EACH tablet 10 mg PO BID PRN (Reason: Pain Score 1-10/10) Patient Comments: TAKE 1 TABLET BY MOUTH EVERY 12 HOURS glucosamine sulfate-msm 1 EACH tablet 2 ea PO DAILY isosorbide mononitrate 30 MG tablet extended release 24 hr 60 mg PO UD Rx Instructions: two tabs once daily dorzolamide 2 % drops 1 drp ophthalmic (eye) TID Patient Comments: INSTILL 1 DROP INTO BOTH EYES 3 TIMES A DAY amlodipine 10 mg tablet 10 mg PO DAILY Patient Comments: TAKE 1 TABLET BY MOUTH EVERY DAY potassium chloride [K-Tab] 20 mEq tablet extended release 20 meq PO DAILY Rx Instructions: orally daily; Discontinued amlodipine 5 MG tablet 10 mg PO DAILY Patient Comments: High blood pressure Referrals / Follow Up: Marilu Decker MD [Med Staff - Active Staff] - 08/09/23 10:30 am Reji Monson MD [Med Staff - Active Staff] - Jessica Galaviz NP, SERVICE DELIVERY MANAGEMENT CONSULTANT-C [Primary Care Provider] - Within 2 Weeks Disposition Disposition (needs filled in before D/C Order can be placed): Home, Self Care Charges/Coding Visit Charges Inpatient E&M: 81674 Disch Hosp >30min
[2023-07-04 15:44] VITALS: BP 148/68; PULSE 86; RESP 16; TEMP 36.2; O2SAT 96
[2023-07-04 16:30] VITALS: PULSE 120
[2023-07-04] MEDS: Metoprolol(XL)Succ 50 MG Tablet PO (16:30)
--- NOTE | 2023-07-04 16:37 | CASEMGMT ---
Patient has order for discharge. Patient independent in room. Patient denies needs or help at discharge. RN CM instructed patient to follow-up with PCP should needs arise. Patient denied further questions or concerns.
== END 2023-07-04 17:03 | disposition home or self-care (01) | DRG 177 ==
LOC: ED 20:08 → PCU 21:05
PROVIDERS: Internal Medicine; Admitting Provider Family Medicine; Emergency Provider Student in an Organized Health Care Education/Training Program; PCP Nurse Practitioner Primary Care; Visit Provider Internal Medicine
DX: U07.1 COVID-19 (principal); G92.8 Other toxic encephalopathy; I73.9 Peripheral vascular disease, unspecified; J44.9 Chronic obstructive pulmonary disease, unspecified; I70.0 Atherosclerosis of aorta; I10 Essential (primary) hypertension; I25.2 Old myocardial infarction; I25.10 Atherosclerotic heart disease of native coronary artery without angina pectoris; K21.9 Gastro-esophageal reflux disease without esophagitis; M51.36 Other intervertebral disc degeneration, lumbar region; E78.5 Hyperlipidemia, unspecified; M50.30 Other cervical disc degeneration, unspecified cervical region; G31.84 Mild cognitive impairment of uncertain or unknown etiology; E66.9 Obesity, unspecified; Z87.891 Personal history of nicotine dependence; Z79.01 Long term (current) use of anticoagulants; H40.9 Unspecified glaucoma; Z79.52 Long term (current) use of systemic steroids; R09.02 Hypoxemia; N40.0 Benign prostatic hyperplasia without lower urinary tract symptoms; Z85.46 Personal history of malignant neoplasm of prostate; Z68.30 Body mass index [BMI] 30.0-30.9, adult; R07.9 Chest pain, unspecified; R79.89 Other specified abnormal findings of blood chemistry
CPT/HCPCS: 36415; 71045; 71275; 80053; 80061; 81001; 83735; 84100; 84443; 84484; 85025; 85379; 93005; 93306; 94668; 99285; J7120; Q9957; Q9967; 90662; A4216; J2405

== ENCOUNTER 2023-11-07 18:46 | Inpatient (IN) | payer MEDICARE, SELFPAY ==
[2023-11-07] VITALS (22 sets, daily range): BP systolic 124–169; BP diastolic 60–116; PULSE 63–111; RESP 9–34; TEMP 36.7–37; O2SAT 67–97; BMI 31.0
--- NOTE | 2023-11-07 19:10 | EKG12_ITS ---
Test Reason : CP Blood Pressure : / mmHG Vent. Rate : 099 BPM Atrial Rate : 099 BPM P-R Int : 216 ms QRS Dur : 082 ms QT Int : 354 ms P-R-T Axes : 054 042 057 degrees QTc Int : 454 ms Sinus rhythm with 1st degree A-V block Otherwise normal ECG Confirmed by LONI WASHINGTON, FERNANDO ([id number]), commissioning editor EN BUCHANAN ([id number]) on 11/08/2023 8:29:10 AM Referred By: MOJGAN Confirmed By:FERNANDO IVEY MD
--- NOTE | 2023-11-07 19:32 | RAD_ITS ---
STUDY: X-RAY CHEST REASON FOR EXAM: Male, 78 years old. Chest pain TECHNIQUE: Frontal and lateral views of the chest. COMPARISON: June 30, 2023 FINDINGS: The lungs are clear and expanded. There is no demonstrated pleural abnormality. Normal size heart. Normal mediastinum and elvin. There is stable small metallic foreign body in the left hilar region. There is atherosclerotic calcification of the aortic arch with tortuosity. There is compression fracture of the lower thoracic spine with prior kyphoplasty. Normal visualized ribs, clavicles, and shoulders. There is no demonstrated abnormality of the visualized soft tissue structures of the upper abdomen. RAD/Chest PA and Lateral IMPRESSION: Degenerative changes, as described above. No demonstrated acute cardiopulmonary process. Electronically Signed: Michael Cooper MD at 19:52 EDT ,
[2023-11-07 19:44] LABS: Absolute Lymphocyte Count 1.86 X10^3/uL (0.83-4.51); Absolute Neutrophil Count 6.5 X10^3/uL (2.0-7.7); Basophil# 0.03 X10^3/uL; Basophil% 0.3 % (0-1); Eosinophil# 0.08 X10^3/uL; Eosinophils% 0.9 % (0-5); Hematocrit 43.9 % (40-54); Hemoglobin 14.9 g/dL (13.0-16.5); Lymphocyte # 1.86 X10^3/ul (0.83-4.51); Lymphocyte % 20.5 % (19-41); Mean Corp Hgb Conc 33.9 g/dL (32-36); Mean Corpuscular Hgb 30.5 pg (27.0-32.0); Mean Corpuscular Volume 89.8 fL (80-94); Mean Platelet Vol. 11.2 fl (6.2-12.0); Monocyte# 0.61 X10^3/uL; Monocyte% 6.7 % (0-10); NRBC Flagged by Analyzer 0 % (0-5); Neutrophil # 6.46 X10^3/uL (2.7-7.7); Platelet Count 212 K/mm3 (150-450); RBC Distribution Width CV 12.8 % (11.6-14.6); RBC Distribution Width SD 42.3 fl (35.1-43.9); Red Blood Count 4.89 M/mm3 (4.6-6.2); White Blood Count 9.1 K/mm3 (4.4-11.0)
--- NOTE | 2023-11-07 19:45 | ED.VIS.CHEST ---
HPI <JEANETTE Chapman - Last Filed: 11/07/23 22:10> History of Present Illness Chief Complaint: Chest Pain Narrative Narrative: Patient presenting today due to midsternal chest pain that started this evening while he was driving. He reports that he had a sudden sharp pain that quickly went away. About 20 minutes later, he was eating a banana and developed sudden midsternal chest sharp pain again while swallowing a piece of the banana. He reports that he took a nitro and it did seem to resolve by the time he got home and called paramedics. He reports that occasionally while eating food will get stuck in his esophagus where he will have occasional pain with swallowing, he has never had an EGD performed. He reports that he recently had a cardiac stress test and echocardiogram, he does have follow-up with his spinning frame fixer tomorrow. He denies any fevers, chills, abdominal pain, nausea, and vomiting. PE Risk Factors: Negative for Recent Travel/Surgery, Recent Immobilization or Prior DVT or PE PFSH <JEANETTE Chapman - Last Filed: 11/07/23 22:10> PFSH Medical History Aortic valve disease Back pain Bleeding nevus Cataract Chronic pain COPD (chronic obstructive pulmonary disease) COVID-19 CPAP (continuous positive airway pressure) dependence MARIE (dyspnea on exertion) Edema of both lower extremities Ganglion cyst Gastroesophageal reflux disease Glaucoma HTN (hypertension) Hx pulmonary embolism Hyperglycemia Hyperlipidemia Left carotid bruit MVP (mitral valve prolapse) Near syncope NSTEMI (non-ST elevated myocardial infarction) Osteoarthritis PAD (peripheral artery disease) Panic attack Prostate cancer Tobacco user Home Medications timolol maleate 0.5 % eye gel forming solution (Timoptic-XE) 1 drp [facility] eye health 07/28/16 [History Last Taken 01/10/20] pantoprazole 40 mg tablet,delayed release 40 mg PO DAILY reflux 06/13/17 [History Last Taken 01/11/20] nitroglycerin 0.4 mg sublingual tablet 0.4 mg sublingual Q5M PRN Chest Pain 03/05/18 [History Last Taken 01/11/20] cyanocobalamin (vitamin B-12) 1,000 mcg tablet 1,000 mcg sublingual DAILY vitamin 06/24/18 [History Last Taken 01/11/20] tamsulosin 0.4 mg capsule (Flomax) 0.4 mg PO QHS prostate 06/24/18 [History Last Taken 01/10/20] cholecalciferol (vitamin D3) 50 mcg (2,000 unit) capsule 2,000 unit PO DAILY vitamin 03/20/19 [History Last Taken 01/11/20] furosemide 20 mg tablet 20 mg PO DAILY diuretic 03/20/19 [History Last Taken 01/11/20] oxycodone-acetaminophen 10 mg-325 mg tablet 10 mg PO BID PRN Pain Score 1-05/0303/20/19 [History Last Taken 01/08/20] amlodipine 10 mg tablet 10 mg PO DAILY high blood pressure 06/30/23 [History Last Taken Unknown] dorzolamide 2 % eye drops 1 drp ophthalmic (eye) TID glaucoma 06/30/23 [History Last Taken Unknown] potassium chloride 20 mEq tablet,extended release (K-Tab) 20 meq PO DAILY potassium level 06/30/23 [History Last Taken Unknown] aspirin 81 mg chewable tablet 81 mg PO DAILY #1 TAB 07/04/23 [Rx Last Taken Unknown] atorvastatin 40 mg tablet 40 mg PO QHS #0 tabs 07/04/23 [Rx Last Taken Unknown] clopidogrel 75 mg tablet (Plavix) 75 mg PO DAILY #30 tabs 07/04/23 [Rx Last Taken Unknown] lisinopril 20 mg tablet 20 mg PO DAILY #30 tabs 07/04/23 [Rx Last Taken Unknown] glucosamine sulfate-methylsulfonylmethane 500 mg-500 mg tablet 2 tab PO DAILY joint health 07/14/23 [History Last Taken Unknown] isosorbide mononitrate 60 mg tablet,extended release 24 hr 60 mg PO DAILY 07/14/23 [History Last Taken Unknown] metoprolol succinate 100 mg tablet,extended release 24 hr 150 mg PO DAILY 07/14/23 [History Last Taken Unknown] vitamin B complex 1 cap PO DAILY vitamin 07/14/23 [History Last Taken Unknown] benazepril 20 mg tablet 20 mg PO BID 11/07/23 [History Last Taken Unknown] brimonidine 0.2 %-timolol 0.5 % eye drops 1 drp ophthalmic (eye) BID 11/07/23 [History Last Taken Unknown] latanoprostene bunod 0.024 % eye drops (Vyzulta) 1 drp ophthalmic (eye) DAILY 11/07/23 [History Last Taken Unknown] omeprazole 40 mg capsule,delayed release 40 mg PO DAILY GERD 11/07/23 [History Last Taken Unknown] pravastatin 10 mg tablet 10 mg PO DAILY 11/07/23 [History Last Taken Unknown] Allergy/AdvReac Type Severity Reaction Status Date / Time Penicillins Allergy Unknown Verified 07/14/23 09:54 Sulfa (Sulfonamide Allergy Unknown Verified 07/14/23 09:54 Antibiotics) carvedilol AdvReac Severe Respiratory Verified 07/14/23 09:54 distress acetaminophen [From Vicodin] AdvReac Intermediate Other Verified 07/14/23 09:54 hydralazine AdvReac Intermediate Dizziness Verified 07/14/23 09:54 hydrocodone [From Vicodin] AdvReac Intermediate Other Verified 07/14/23 09:54 morphine AdvReac Intermediate Shortness Verified 07/14/23 09:54 of breath lorazepam AdvReac Other Verified 07/14/23 09:54 Family History Mother COPD (chronic obstructive pulmonary disease) Father Cancer Myocardial infarction Surgical History Hx of eye surgery Hx of tonsillectomy Social History household members: none housing: apartment number of children: 1 current occupational status: retired Smoking Status: Former smoker alcohol intake: never substance use type: does not use caffeine: Yes (all day) Type: coffee ROS <JEANETTE Chapman - Last Filed: 11/07/23 22:10> ROS ED Constitutional Constitutional ED: Denies chills or fever(s) Cardiovascular Cardiovascular: Reports chest pain; Denies palpitations or racing heartbeat Respiratory/Chest Respiratory/Chest: Denies cough or dyspnea Gastrointestinal Gastrointestinal: Denies abdominal pain, nausea or vomiting Musculoskeletal Musculoskeletal: Denies arthralgias or myalgias Integumentary Denies rash Neurologic Neurologic: Denies weakness EXAM <JEANETTE Chapman - Last Filed: 11/07/23 22:10> Physical Exam Const Vital Signs: 11/07/23 18:47 11/07/23 19:17 11/07/23 19:30 Temperature 98.0 F Temperature Source Temporal Pulse Rate 109 H 96 Respiratory Rate 21 H 12 Blood Pressure 160/83 H 138/70 H Blood Pressure Mean 108 92 Pulse Ox 96 95 Oxygen Delivery Method Room Air 11/07/23 19:39 11/07/23 19:45 11/07/23 20:00 Temperature Temperature Source Pulse Rate 91 93 85 Respiratory Rate 29 H 34 H 10 L Blood Pressure 137/64 H 124/64 H Blood Pressure Mean 86 83 Pulse Ox 96 95 94 Oxygen Delivery Method Room Air Room Air 11/07/23 20:15 11/07/23 20:30 11/07/23 20:45 Temperature Temperature Source Pulse Rate 80 75 74 Respiratory Rate 11 L 9 L 11 L Blood Pressure 130/70 H 141/71 H 154/79 H Blood Pressure Mean 89 91 100 Pulse Ox 92 93 93 Oxygen Delivery Method 11/07/23 21:00 11/07/23 21:15 11/07/23 21:30 Temperature Temperature Source Pulse Rate 111 H 71 71 Respiratory Rate 26 H 10 L 14 Blood Pressure 165/116 H 130/60 H 130/68 H Blood Pressure Mean 127 82 85 Pulse Ox 91 95 94 Oxygen Delivery Method Room Air 11/07/23 22:46 11/07/23 21:45 11/07/23 22:00 Temperature 98.6 F Temperature Source Pulse Rate 80 70 72 Respiratory Rate 14 16 17 Blood Pressure 146/68 H 130/61 H Blood Pressure Mean 94 78 Pulse Ox 97 95 Oxygen Delivery Method 11/07/23 22:15 Temperature Temperature Source Pulse Rate 69 Respiratory Rate 18 Blood Pressure 138/71 H Blood Pressure Mean 87 Pulse Ox 94 Oxygen Delivery Method Room Air Positive well nourished, well developed and no apparent distress General Appearance ED: well developed HEENT Reports normocephalic and head/scalp atraumatic Mouth ED: Yes moist mucous membranes normal Eyes PERRL and EOMs intact bilaterally Neck full ROM and supple Chest Wall inspection of chest normal Resp normal respiratory effort and clear to auscultation bilaterally Cardio regular rate and regular rhythm GI soft to palpation, non-tender, non-distended and no masses Back/Spine normal ROM and normal to inspection Extremity normal to inspection and full ROM Neuro oriented x3, CN's II-XII intact bilaterally, moves all extremities, no focal motor deficits and no sensory deficits noted Sensorium / Orientation: awake and alert Psych mental status grossly normal and thought process normal Skin no rashes or lesions noted and no wounds <Jas Stevens MD - Last Filed: 11/07/23 23:00> Physical Exam Const Vital Signs: 11/07/23 18:47 11/07/23 19:17 11/07/23 19:30 Temperature 98.0 F Temperature Source Temporal Pulse Rate 109 H 96 Respiratory Rate 21 H 12 Blood Pressure 160/83 H 138/70 H Blood Pressure Mean 108 92 Pulse Ox 96 95 Oxygen Delivery Method Room Air 11/07/23 19:39 11/07/23 19:45 11/07/23 20:00 Temperature Temperature Source Pulse Rate 91 93 85 Respiratory Rate 29 H 34 H 10 L Blood Pressure 137/64 H 124/64 H Blood Pressure Mean 86 83 Pulse Ox 96 95 94 Oxygen Delivery Method Room Air Room Air 11/07/23 20:15 11/07/23 20:30 11/07/23 20:45 Temperature Temperature Source Pulse Rate 80 75 74 Respiratory Rate 11 L 9 L 11 L Blood Pressure 130/70 H 141/71 H 154/79 H Blood Pressure Mean 89 91 100 Pulse Ox 92 93 93 Oxygen Delivery Method 11/07/23 21:00 11/07/23 21:15 11/07/23 21:30 Temperature Temperature Source Pulse Rate 111 H 71 71 Respiratory Rate 26 H 10 L 14 Blood Pressure 165/116 H 130/60 H 130/68 H Blood Pressure Mean 127 82 85 Pulse Ox 91 95 94 Oxygen Delivery Method Room Air 11/07/23 22:46 11/07/23 21:45 11/07/23 22:00 Temperature 98.6 F Temperature Source Pulse Rate 80 70 72 Respiratory Rate 14 16 17 Blood Pressure 146/68 H 130/61 H Blood Pressure Mean 94 78 Pulse Ox 97 95 Oxygen Delivery Method 11/07/23 22:15 Temperature Temperature Source Pulse Rate 69 Respiratory Rate 18 Blood Pressure 138/71 H Blood Pressure Mean 87 Pulse Ox 94 Oxygen Delivery Method Room Air [facility] <JEANETTE Chapman - Last Filed: 11/07/23 22:10> [facility] Narrative Medical decision making narrative: Patient presenting today due to midsternal chest pain that started this evening. He initially had a sharp pain that quickly went away, about 20 minutes later he had another pain while swallowing a piece of banana. He has had pain off and on with swallowing and occasionally does get food stuck in his esophagus, no diagnosis of esophageal strictures but has never had an EGD. He could be having esophageal spasms. He had a stress test performed on 08/08/2023, this is negative for any gross ischemia or infarct. Echocardiogram was performed on 07/01/2023, shows a LVEF of 65%. He does have a follow-up with his spinning frame fixer tomorrow. He no longer has chest pain, cardiac workup will be obtained. Chest x-ray is negative for any acute cardiopulmonary abnormality. CBC is unremarkable, BMP shows a potassium of 3.3, initial troponin is 66, delta troponin will be obtained. As long as patient's delta troponin is nonsignificant, he will be discharged home in stable condition. He is comfortable with plan. Lab Data Attestation: I reviewed the patient's lab results. Labs: Laboratory Results - last 24 hr 11/07/23 11/07/23 19:10 21:10 WBC 9.1 RBC 4.89 Hgb 14.9 Hct 43.9 MCV 89.8 MCH 30.5 MCHC 33.9 RDW Std Deviation 42.3 RDW Coeff of Suki 12.8 Plt Count 212 MPV 11.2 Immature Gran % (Auto) 0.600 Neut % (Auto) 71.0 H Lymph % (Auto) 20.5 [place] % (Auto) 6.7 Eos % (Auto) 0.9 Baso % (Auto) 0.3 Absolute Neuts (auto) 6.5 Absolute Lymphs (auto) 1.86 Nucleated RBC % 0 Sodium 140 Potassium 3.3 L Chloride 108 H Carbon Dioxide 25.0 Anion Gap 7 BUN 9 Creatinine 0.87 Estim Creat Clear Calc 71.28 Est GFR (MDRD) Af Amer 109 Est GFR (MDRD) Non-Af 90 BUN/Creatinine Ratio 10.4 Glucose 148 H Calcium 8.9 Troponin I High Sens 66 124 H* Radiography X-Ray: Read by ED Physician and Read by Radiologist Diagnostic Testing: Clinical Impression(s) from Imaging Studies Chest X-Ray 11/07/23 19:32 IMPRESSION: Degenerative changes, as described above. No demonstrated acute cardiopulmonary process. Electronically Signed: Michael Cooper MD at 19:52 EDT , EKG Initial EKG: Comments: 99 bpm, sinus rhythm with first-degree AV block, no ST elevation, reviewed and interpreted by attending ED physician <Jas Stevens MD - Last Filed: 11/07/23 23:00> [facility] Narrative Medical decision making narrative: Patient presenting today due to midsternal chest pain that started this evening. He initially had a sharp pain that quickly went away, about 20 minutes later he had another pain while swallowing a piece of banana. He has had pain off and on with swallowing and occasionally does get food stuck in his esophagus, no diagnosis of esophageal strictures but has never had an EGD. He could be having esophageal spasms. He had a stress test performed on 08/08/2023, this is negative for any gross ischemia or infarct. Echocardiogram was performed on 07/01/2023, shows a LVEF of 65%. He does have a follow-up with his spinning frame fixer tomorrow. He no longer has chest pain, cardiac workup will be obtained. Chest x-ray is negative for any acute cardiopulmonary abnormality. CBC is unremarkable, BMP shows a potassium of 3.3, initial troponin is 66, delta troponin will be obtained. As long as patient's delta troponin is nonsignificant, he will be discharged home in stable condition. He is comfortable with plan. Dr. Stevens: I have personally performed a face to face assessment of the patient and have reviewed the JACOB Note. I performed a substantive portion of the visit including all aspects of the following. My vazquez findings include: History is chest pain this evening after eating a banana, sharp pain that resolved. Had chest pain prior to this. Exam is afebrile. Vital signs noted. Regular rate and rhythm. Lungs clear to auscultation bilaterally. Abdomen soft nontender with normoactive bowel sounds. Medical Decision Making: Check labs. Check EKG. EKG obtained and interpreted by myself independently as normal sinus rhythm at 99 bpm without ectopy or acute ST changes. No STEMI. Chest x-ray interpreted by myself independently shows no evidence of acute process, no pneumonia, no pneumothorax. I reviewed the radiology report which confirms my independent interpretation. Check labs. I reviewed his laboratory work and of significance is his troponin at 66 initially with repeat troponin elevated above 120. Given that this is a delta troponin of greater than 20, I discussed patient with Dr. Addi Harden who will admit the patient, but he requested that I speak with the on-call spinning frame fixer. In discussion with Dr. Monson, he states that the patient should receive an injection of Lovenox, be given aspirin, and set up for a stress test in the morning. Disposition is admitted in stable condition. Other additions or changes: [None] History & Record Review Discussion w/independent historian: Patient Additional record(s) reviewed:: Prior ED visit and Prior labs Lab Data Labs: Laboratory Results - last 24 hr 11/07/23 11/07/23 19:10 21:10 WBC 9.1 RBC 4.89 Hgb 14.9 Hct 43.9 MCV 89.8 MCH 30.5 MCHC 33.9 RDW Std Deviation 42.3 RDW Coeff of [place] 12.8 Plt Count 212 MPV 11.2 Immature Gran % (Auto) 0.600 Neut % (Auto) 71.0 H Lymph % (Auto) 20.5 [place] % (Auto) 6.7 Eos % (Auto) 0.9 Baso % (Auto) 0.3 Absolute Neuts (auto) 6.5 Absolute Lymphs (auto) 1.86 Nucleated RBC % 0 Sodium 140 Potassium 3.3 L Chloride 108 H Carbon Dioxide 25.0 Anion Gap 7 BUN 9 Creatinine 0.87 Estim Creat Clear Calc 71.28 Est GFR (MDRD) Af Amer 109 Est GFR (MDRD) Non-Af 90 BUN/Creatinine Ratio 10.4 Glucose 148 H Calcium 8.9 Troponin I High Sens 66 124 H* Radiography Chest X-Ray - ED: Read by ED Physician and Read by Radiologist Diagnostic Testing: Clinical Impression(s) from Imaging Studies Chest X-Ray 11/07/23 19:32 IMPRESSION: Degenerative changes, as described above. No demonstrated acute cardiopulmonary process. Electronically Signed: Michael Cooper MD at 19:52 EDT , Discharge Plan Triage Chief Complaint: Chest Pain ED Midlevel Provider: Kath Reyes ED Provider: Jas Stevens Dx/Rx/DC Orders Clinical Impression: Chest pain Instructions: ED Chest Pain, Uncertain Cause Prescriptions: No Action isosorbide mononitrate 60 mg tablet extended release 24 hr 60 mg PO DAILY Patient Comments: TAKE 1 TABLET BY MOUTH EVERY DAY IN THE MORNING metoprolol succinate 100 mg tablet extended release 24 hr 150 mg PO DAILY Rx Instructions: 100 mg QAM, 50 mg QHS vitamin B complex Capsule 1 cap PO DAILY Patient Comments: SUPPLEMENT timolol maleate [Timoptic-XE] 1 DROP gel forming solution 1 drp Each Eye QHS pantoprazole 40 MG tablet 40 mg PO DAILY nitroglycerin 0.4 MG tablet 0.4 mg sublingual Q5M PRN (Reason: Chest Pain) cyanocobalamin (vitamin B-12) 1,000 MCG tablet 1,000 mcg sublingual DAILY Patient Comments: TAKE ONE TABLET BY MOUTH EVERY DAY tamsulosin [Flomax] 0.4 MG capsule 0.4 mg PO QHS furosemide 20 MG tablet 20 mg PO DAILY cholecalciferol (vitamin D3) 2,000 UNIT capsule 2,000 unit PO DAILY oxycodone-acetaminophen 1 EACH tablet 10 mg PO BID PRN (Reason: Pain Score 1-10/10) Patient Comments: TAKE 1 TABLET BY MOUTH EVERY 12 HOURS glucosamine sulfate-msm 500-500 mg tablet 2 tab PO DAILY dorzolamide 2 % drops 1 drp ophthalmic (eye) TID Patient Comments: INSTILL 1 DROP INTO BOTH EYES 3 TIMES A DAY amlodipine 10 mg tablet 10 mg PO DAILY Patient Comments: TAKE 1 TABLET BY MOUTH EVERY DAY potassium chloride [K-Tab] 20 mEq tablet extended release 20 meq PO DAILY Rx Instructions: orally daily; lisinopril 20 mg tablet 20 mg PO DAILY Qty: 30 1RF atorvastatin 40 mg Tablet 40 mg PO QHS Qty: 0 0RF Patient Comments: TAKES OFF AND ON 11/06/24 aspirin 81 mg tablet,chewable 81 mg PO DAILY Qty: 1 0RF Patient Comments: DOES NOT TAKE ON REGULAR BASIS clopidogrel [Plavix] 75 mg tablet 75 mg PO DAILY Qty: 30 1RF omeprazole 40 mg capsule,delayed release(DR/EC) 40 mg PO DAILY pravastatin 10 mg tablet 10 mg PO DAILY benazepril 20 mg tablet 20 mg PO BID brimonidine-timolol 0.2-0.5 % drops 1 drp ophthalmic (eye) BID Vyzulta 0.024 % drops 1 drp ophthalmic (eye) DAILY Primary Care Provider: Jessica Galaviz NP Referrals: Jessica Galaviz NP, IRRIGATOR-C [Primary Care Provider] - Activity Restrictions/Additional Instructions: Follow-up with your spinning frame fixer tomorrow, return for any worsening of your symptoms. Disposition Disposition: Home, Self Care
[2023-11-07 20:10] LABS: Anion Gap 7 (5-15); BUN 9 mg/dL (7-18); BUN/Creat Ratio 10.4 RATIO (10-20); Calcium,Total 8.9 mg/dL (8.5-10.1); Chloride 108 mmol/L (98-107); Creatinine, Serum 0.87 mg/dL (0.70-1.30); EST Glomerular Filtration Rate 90 mL/min (>60); Est Glom Filt Rate - Afr Amer 109 mL/min (>60); Estimated Creatinine Clearance 71.28 ml/min; Glucose 148 mg/dL (74-106); Potassium 3.3 mmol/L (3.5-5.1); Sodium Level 140 mmol/L (136-145); Troponin-I HS (w/2H Reflex) 66 pg/mL (3.0-78.0)
[2023-11-07] MEDS: Potassium Chloride Oral Tablet 20 MEQ 40 MEQ PO (20:51)
[2023-11-07 21:55] LABS: Reflex Troponin-HS? (from REC) Y
[2023-11-07 22:21] LABS: Troponin-I HS 124 pg/mL (3.0-78.0)
--- NOTE | 2023-11-07 23:31 | PCM.HP.STD ---
HPI - General General Date of Admission: 11/07/23 HPI Narrative TRI FRANK, is a 78 M who presents today with substernal chest pain. Initial troponin in the ER was normal however delta troponin climbed to 124 from 66. ED physician discussed with cardiology recommended dose of therapeutic Lovenox and a stress test in the morning. 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 He also had an echo in June 2023 with a normal EF of 65% will not be repeated here. He did receive a dose of nitroglycerin in the ER which resolved his chest pain. He denies activity with chest pain and states that he was currently driving when he developed this massive substernal chest pain no lightheadedness or dizziness, and the pain did not radiate anywhere. PFSH Medical History Aortic valve disease Back pain Bleeding nevus Cataract Chronic pain COPD (chronic obstructive pulmonary disease) COVID-19 CPAP (continuous positive airway pressure) dependence MARIE (dyspnea on exertion) Edema of both lower extremities Ganglion cyst Gastroesophageal reflux disease Glaucoma HTN (hypertension) Hx pulmonary embolism Hyperglycemia Hyperlipidemia Left carotid bruit MVP (mitral valve prolapse) Near syncope NSTEMI (non-ST elevated myocardial infarction) Osteoarthritis PAD (peripheral artery disease) Panic attack Prostate cancer Tobacco user Home Medications timolol maleate 0.5 % eye gel forming solution (Timoptic-XE) 1 drp Q eye health 07/28/16 [History Last Taken 01/10/20] pantoprazole 40 mg tablet,delayed release 40 mg PO DAILY reflux 06/13/17 [History Last Taken 01/11/20] nitroglycerin 0.4 mg sublingual tablet 0.4 mg sublingual Q5M PRN Chest Pain 03/05/18 [History Last Taken 01/11/20] cyanocobalamin (vitamin B-12) 1,000 mcg tablet 1,000 mcg sublingual DAILY vitamin 06/24/18 [History Last Taken 01/11/20] tamsulosin 0.4 mg capsule (Flomax) 0.4 mg PO QHS prostate 06/24/18 [History Last Taken 01/10/20] cholecalciferol (vitamin D3) 50 mcg (2,000 unit) capsule 2,000 unit PO DAILY vitamin 03/20/19 [History Last Taken 01/11/20] furosemide 20 mg tablet 20 mg PO DAILY diuretic 03/20/19 [History Last Taken 01/11/20] oxycodone-acetaminophen 10 mg-325 mg tablet 10 mg PO BID PRN Pain Score 1-05/0303/20/19 [History Last Taken 01/08/20] amlodipine 10 mg tablet 10 mg PO DAILY high blood pressure 06/30/23 [History Last Taken Unknown] dorzolamide 2 % eye drops 1 drp ophthalmic (eye) TID glaucoma 06/30/23 [History Last Taken Unknown] potassium chloride 20 mEq tablet,extended release (K-Tab) 20 meq PO DAILY potassium level 06/30/23 [History Last Taken Unknown] aspirin 81 mg chewable tablet 81 mg PO DAILY #1 TAB 07/04/23 [Rx Last Taken Unknown] atorvastatin 40 mg tablet 40 mg PO QHS #0 tabs 07/04/23 [Rx Last Taken Unknown] clopidogrel 75 mg tablet (Plavix) 75 mg PO DAILY #30 tabs 07/04/23 [Rx Last Taken Unknown] lisinopril 20 mg tablet 20 mg PO DAILY #30 tabs 07/04/23 [Rx Last Taken Unknown] glucosamine sulfate-methylsulfonylmethane 500 mg-500 mg tablet 2 tab PO DAILY joint health 07/14/23 [History Last Taken Unknown] isosorbide mononitrate 60 mg tablet,extended release 24 hr 60 mg PO DAILY 07/14/23 [History Last Taken Unknown] metoprolol succinate 100 mg tablet,extended release 24 hr 150 mg PO DAILY 07/14/23 [History Last Taken Unknown] vitamin B complex 1 cap PO DAILY vitamin 07/14/23 [History Last Taken Unknown] benazepril 20 mg tablet 20 mg PO BID 11/07/23 [History Last Taken Unknown] brimonidine 0.2 %-timolol 0.5 % eye drops 1 drp ophthalmic (eye) BID 11/07/23 [History Last Taken Unknown] latanoprostene bunod 0.024 % eye drops (Vyzulta) 1 drp ophthalmic (eye) DAILY 11/07/23 [History Last Taken Unknown] omeprazole 40 mg capsule,delayed release 40 mg PO DAILY GERD 11/07/23 [History Last Taken Unknown] pravastatin 10 mg tablet 10 mg PO DAILY 11/07/23 [History Last Taken Unknown] Allergy/AdvReac Type Severity Reaction Status Date / Time Penicillins Allergy Unknown Verified 07/14/23 09:54 Sulfa (Sulfonamide Allergy Unknown Verified 07/14/23 09:54 Antibiotics) carvedilol AdvReac Severe Respiratory Verified 07/14/23 09:54 distress acetaminophen [From Vicodin] AdvReac Intermediate Other Verified 07/14/23 09:54 hydralazine AdvReac Intermediate Dizziness Verified 07/14/23 09:54 hydrocodone [From Vicodin] AdvReac Intermediate Other Verified 07/14/23 09:54 morphine AdvReac Intermediate Shortness Verified 07/14/23 09:54 of breath lorazepam AdvReac Other Verified 07/14/23 09:54 Family History Mother COPD (chronic obstructive pulmonary disease) Father Cancer Myocardial infarction Surgical History Hx of eye surgery Hx of tonsillectomy Social History household members: none housing: apartment number of children: 1 current occupational status: retired Smoking Status: Former smoker alcohol intake: never substance use type: does not use caffeine: Yes (all day) Type: coffee ROS Constitutional Constitutional: Denies chills, fatigue, fever(s) or malaise Eyes Eyes: Denies blurry vision ENT HEENT: Denies headache(s) or nasal discharge Cardiovascular Cardiovascular: Reports chest pain; Denies dyspnea on exertion or syncope Respiratory/Chest Respiratory/Chest: Denies cough, shortness of breath at rest or shortness of breath with exertion Gastrointestinal Gastrointestinal: Denies constipation, diarrhea, nausea or vomiting Genitourinary Genitourinary: Denies dysuria Neurologic Neurologic: Denies focal weakness, numbness or tremor(s) Psychiatric Psychiatric: Denies anxiety or depression Vital Signs Vital Signs Vital Signs: 11/07/23 18:47 11/07/23 19:17 11/07/23 19:30 Temperature 98.0 F Temperature Source Temporal Pulse Rate 109 H 96 Respiratory Rate 21 H 12 Blood Pressure 160/83 H 138/70 H Blood Pressure Mean 108 92 Pulse Ox 96 95 Oxygen Delivery Method Room Air 11/07/23 19:39 11/07/23 19:45 11/07/23 20:00 Temperature Temperature Source Pulse Rate 91 93 85 Respiratory Rate 29 H 34 H 10 L Blood Pressure 137/64 H 124/64 H Blood Pressure Mean 86 83 Pulse Ox 96 95 94 Oxygen Delivery Method Room Air Room Air 11/07/23 20:15 11/07/23 20:30 11/07/23 20:45 Temperature Temperature Source Pulse Rate 80 75 74 Respiratory Rate 11 L 9 L 11 L Blood Pressure 130/70 H 141/71 H 154/79 H Blood Pressure Mean 89 91 100 Pulse Ox 92 93 93 Oxygen Delivery Method 11/07/23 21:00 11/07/23 21:15 11/07/23 21:30 Temperature Temperature Source Pulse Rate 111 H 71 71 Respiratory Rate 26 H 10 L 14 Blood Pressure 165/116 H 130/60 H 130/68 H Blood Pressure Mean 127 82 85 Pulse Ox 91 95 94 Oxygen Delivery Method Room Air 11/07/23 22:46 11/07/23 21:45 11/07/23 22:00 Temperature 98.6 F Temperature Source Pulse Rate 80 70 72 Respiratory Rate 14 16 17 Blood Pressure 146/68 H 130/61 H Blood Pressure Mean 94 78 Pulse Ox 97 95 Oxygen Delivery Method 11/07/23 22:15 11/07/23 22:30 11/07/23 22:45 Temperature Temperature Source Pulse Rate 69 69 77 Respiratory Rate 18 21 H 23 H Blood Pressure 138/71 H 136/63 H 146/68 H Blood Pressure Mean 87 85 90 Pulse Ox 94 96 Oxygen Delivery Method Room Air Room Air 11/07/23 23:00 Temperature Temperature Source Pulse Rate 68 Respiratory Rate 16 Blood Pressure 132/68 H Blood Pressure Mean 89 Pulse Ox 67 Oxygen Delivery Method Room Air Weight Weight: 192 lb 7.417 oz Body Mass Index (BMI) 31.0 Physical Exam Narrative General: Alert, Oriented x3, Cooperative, No apparent distress HEENT: Atraumatic, PERRLA, EOMI, Normocephalic Oral: Moist Mucosa Neck: Supple, No JVD Lungs: Diminished, Normal air movement, No rhonchi, No wheeze, No rales Cardiovascular: Regular rate, Regular Rhythm, Normal S1, Normal S2, No murmurs Abdomen: Soft, Non Tender, Non-Distended, No Hepato-splenomegaly Extremities: Trace edema, Capillary Refill Less than 3 Seconds Skin: No rashes, No breakdown Musculoskeletal: No Tenderness to Palpation of Joints or Extremities Neurological: No focal neurological deficits, Motor Exam 5/5 strength throughout, Sensory exam intact to light touch and pain Psych/Mental Status: Normal Affect, Appropriate Results Lab / Micro Data 11/07/23 19:10 11/07/23 19:10 Labs: Laboratory Results - last 24 hr 11/07/23 19:10: WBC 9.1, RBC 4.89, Hgb 14.9, Hct 43.9, MCV 89.8, MCH 30.5, MCHC 33.9, RDW Std Deviation 42.3, RDW Coeff of Suki 12.8, Plt Count 212, MPV 11.2, Immature Gran % (Auto) 0.600, Neut % (Auto) 71.0 H, Lymph % (Auto) 20.5, Mccone % (Auto) 6.7, Eos % (Auto) 0.9, Baso % (Auto) 0.3, Absolute Neuts (auto) 6.5, Absolute Lymphs (auto) 1.86, Nucleated RBC % 0, Sodium 140, Potassium 3.3 L, Chloride 108 H, Carbon Dioxide 25.0, Anion Gap 7, BUN 9, Creatinine 0.87, Estim Creat Clear Calc 71.28, Est GFR (MDRD) Af Amer 109, Est GFR (MDRD) Non-Af 90, BUN/Creatinine Ratio 10.4, Glucose 148 H, Calcium 8.9, Troponin I High Sens 66 11/07/23 21:10: Troponin I High Sens 124 H* Imaging Radiology Impression Chest X-Ray 11/07/23 19:32 IMPRESSION: Degenerative changes, as described above. No demonstrated acute cardiopulmonary process. Electronically Signed: Michael Cooper MD at 19:52 EDT , Assessment & Plan Assessment/Plan (1) Elevated troponin: (2) Chest pain: PLAN: Plan 1. Chest pain with an elevated troponin/essential HTN/HLD/PAD ? Unclear etiology at the moment as he has had a normal stress test per his report as well as a normal echo a few months ago ? Obtain serial troponins if they continue to climb or chest pain recurs will consult cardiology ? Will also obtain records to confirm that he had a stress test at an outside hospital and if that is accurate then we will discuss potentially with cardiology the need for heart cath in the morning ? Continue with his home blood pressure medications ? Continue with his home Lipitor ? We will monitor make adjustments as necessary ? Continue with aspirin ? She did receive a therapeutic dose of Lovenox on admission 2. GERD ? Stable ? Continue with PPI 3. Glaucoma ? Stable ? Continue with his eyedrops DVT: Therapeutic Lovenox dose x 1 75 minutes was spent on direct patient care, including documentation as well as chart review and collaboration with colleagues Charges/Coding Visit Charges Inpatient E&M: 31359 Init Hosp L3
--- NOTE | 2023-11-07 23:41 | ED.RN ---
CALLED PHARMACY FOR LOVENOX INJECTION, SPOKE WITH PATRICIA. HE IS SENDING THE MEDICATION KASEY.
[2023-11-07] MEDS: Enoxaparin 100 MG/ML Syringe 88 MG SC (23:52)
[2023-11-07] MEDS: Aspirin 81 MG TAB.CHEW 324 MG PO (23:52)
[2023-11-08] VITALS (16 sets, daily range): BP systolic 110–161; BP diastolic 54–90; PULSE 66–135; RESP 14–32; TEMP 36.2–36.6; O2SAT 94–99; BMI 31.0
--- NOTE | 2023-11-08 00:30 | EKG12_ITS ---
Test Reason : CP admission EKG Blood Pressure : / mmHG Vent. Rate : 078 BPM Atrial Rate : 078 BPM P-R Int : 220 ms QRS Dur : 094 ms QT Int : 388 ms P-R-T Axes : 062 042 062 degrees QTc Int : 442 ms Sinus rhythm with 1st degree A-V block Otherwise normal ECG When compared with ECG of 07-NOV-2023 18:50, MANUAL COMPARISON REQUIRED, DATA IS UNCONFIRMED Confirmed by LONI WASHINGTON, FERNANDO ([id number]), news assignment editor ANA MURRY ([id number]) on 11/09/2023 6:52:37 AM Referred By: Confirmed By:FERNANDO IVEY MD
[2023-11-08 02:46] LABS: Troponin-I HS 205 pg/mL (3.0-78.0)
[2023-11-08] MEDS: Dorzolamide 2% 10ml Bottle 1 DRP OPHTHALMIC ×3 (05:23→20:39)
[2023-11-08] MEDS: Aspirin 81 MG TAB.CHEW PO (05:23)
[2023-11-08] MEDS: Lisinopril 20 MG Tablet PO ×2 (05:36→20:40)
[2023-11-08 06:30] LABS: Absolute Lymphocyte Count 2.47 X10^3/uL (0.83-4.51); Absolute Neutrophil Count 6.8 X10^3/uL (2.0-7.7); Basophil# 0.04 X10^3/uL; Basophil% 0.4 % (0-1); Eosinophil# 0.13 X10^3/uL; Eosinophils% 1.3 % (0-5); Hematocrit 43.9 % (40-54); Hemoglobin 14.7 g/dL (13.0-16.5); Lymphocyte # 2.47 X10^3/ul (0.83-4.51); Lymphocyte % 24.1 % (19-41); Mean Corp Hgb Conc 33.5 g/dL (32-36); Mean Corpuscular Hgb 30.4 pg (27.0-32.0); Mean Corpuscular Volume 90.9 fL (80-94); Mean Platelet Vol. 10.6 fl (6.2-12.0); Monocyte% 7.8 % (0-10); NRBC Flagged by Analyzer 0 % (0-5); Neutrophil # 6.79 X10^3/uL (2.7-7.7); Neutrophil % 66.1 % (47-70); Platelet Count 207 K/mm3 (150-450); RBC Distribution Width CV 12.9 % (11.6-14.6); RBC Distribution Width SD 42.9 fl (35.1-43.9); Red Blood Count 4.83 M/mm3 (4.6-6.2); White Blood Count 10.3 K/mm3 (4.4-11.0)
[2023-11-08 06:55] LABS: Anion Gap 4 (5-15); BUN 9 mg/dL (7-18); BUN/Creat Ratio 12.2 RATIO (10-20); Calcium,Total 8.6 mg/dL (8.5-10.1); Chloride 110 mmol/L (98-107); Creatinine, Serum 0.74 mg/dL (0.70-1.30); EST Glomerular Filtration Rate 109 mL/min (>60); Est Glom Filt Rate - Afr Amer 131 mL/min (>60); Glucose 103 mg/dL (74-106); Potassium 3.6 mmol/L (3.5-5.1); Sodium Level 141 mmol/L (136-145)
--- NOTE | 2023-11-08 10:45 | CON.PCM.CA_ITS ---
Assessment & Plan Assessment/Plan (1) Elevated troponin: PLAN: He does have evidence of elevated troponin. He had a stress test performe d in July of this year which was negative. As such I recommended canceling his current stress test and evaluating him fully with a cardiac catheterization. The risk benefits alternatives have been explained to him he understands and agrees to proceed. (2) HTN (hypertension): PLAN: His blood pressure appears to be under good control but at this particular time I would not make any changes. (3) Hyperlipidemia: PLAN: He will continue with risk factor modification. HPI Consult Data Date of Consult: 11/08/23 HPI Narrative HPI Narrative: TRI FRANK, is a 78 M who presents with chest discomfort which she describes as a heaviness occurring in his chest with minimal exertion. He says that he presented to the emergency room was evaluated cardiac enzymes were obtained and were noted to be mildly abnormal. The ER physician contacted me and it was decided to admit him pending further evaluation such as stress testing. However on further discussion with him this morning it appears that h is chest discomfort appears to be more cardiac related. Of note was the fact that he had presented to the hospital in June 2023 complaining of chest discomfort which he said radiated to his left arm. He had previously been diagnosed with COVID-19 and was being managed medically. During his visit he was noted to be markedly hypertensive and he did have mild elevation in his cardiac troponin enzymes. Cardiology was consulted and it appears that an echocardiogram was performed which demonstrated preserved ejection fraction of 65% with aortic sclerosis but no stenosis and medical therapy was recommended. He was scheduled to have a stress test which she has as an outpatient which was apparently negative. 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 He presented back this time and is also noted to have elevated cardiac enzymes with no acute EKG molina ges. [facility] Medical History Aortic valve disease Back pain Bleeding nevus Cataract Chronic pain COPD (chronic obstructive pulmonary disease) COVID-19 CPAP (continuous positive airway pressure) dependence MARIE (dyspnea on exertion) Edema of both lower extremities Ganglion cyst Gastroesophageal reflux disease Glaucoma HTN (hypertension) Hx pulmonary embolism Hyperglycemia Hyperlipidemia Left carotid bruit MVP (mitral valve prolapse) Near syncope NSTEMI (non-ST elevated myocardial infarction) Osteoarthritis PAD (peripheral artery disease) Panic attack Prostate cancer Tobacco user Home Medications timolol maleate 0.5 % eye gel forming solution (Timoptic-XE) 1 drp QHS eye health 07/28/16 [History Last Taken 01/10/20] pantoprazole 40 mg tablet,delayed release 40 mg PO DAILY reflux 06/13/17 [History Last Taken 01/11/20] nitroglycerin 0.4 mg sublingual tablet 0.4 mg sublingual Q5M PRN Chest Pain 03/05/18 [History Last Taken 01/11/20] cyanocobalamin (vitamin B-12) 1,000 mcg tablet 1,000 mcg sublingual DAILY vitamin 06/24/18 [History Last Taken 01/11/20] tamsulosin 0.4 mg capsule (Flomax) 0.4 mg PO QHS prostate 06/24/18 [History Last Taken 01/10/20] cholecalciferol (vitamin D3) 50 mcg (2,000 unit) capsule 2,000 unit PO DAILY vitamin 03/20/19 [History Last Taken 01/11/20] furosemide 20 mg tablet 20 mg PO DAILY diuretic 03/20/19 [History Last Taken 01/11/20] oxycodone-acetaminophen 10 mg-325 mg tablet 10 mg PO BID PRN Pain Score 1-05/0303/20/19 [History Last Taken 01/08/20] amlodipine 10 mg tablet 10 mg PO DAILY high blood pressure 06/30/23 [History Last Taken Unknown] dorzolamide 2 % eye drops 1 drp ophthalmic (eye) TID glaucoma 06/30/23 [History Last Taken Unknown] potassium chloride 20 mEq tablet,extended release (K-Tab) 20 meq PO DAILY potassium level 06/30/23 [History Last Taken Unknown] aspirin 81 mg chewable tablet 81 mg PO DAILY #1 TAB 07/04/23 [Rx Last Taken Unknown] atorvastatin 40 mg tablet 40 mg PO QHS #0 tabs 07/04/23 [Rx Last Taken Unknown] clopidogrel 75 mg tablet (Plavix) 75 mg PO DAILY #30 tabs 07/04/23 [Rx Last Taken Unknown] lisinopril 20 mg tablet 20 mg PO DAILY #30 tabs 07/04/23 [Rx Last Taken Unknown] glucosamine sulfate-methylsulfonylmethane 500 mg-500 mg tablet 2 tab PO DAILY joint health 07/14/23 [History Last Taken Unknown] isosorbide mononitrate 60 mg tablet,extended release 24 hr 60 mg PO DAILY 07/14/23 [History Last Taken Unknown] metoprolol succinate 100 mg tablet,extended release 24 hr 150 mg PO DAILY 07/14/23 [History Last Taken Unknown] vitamin B complex 1 cap PO DAILY vitamin 07/14/23 [History Last Taken Unknown] benazepril 20 mg tablet 20 mg PO BID 11/07/23 [History Last Taken Unknown] brimonidine 0.2 %-timolol 0.5 % eye drops 1 drp ophthalmic (eye) BID 11/07/23 [History Last Taken Unknown] latanoprostene bunod 0.024 % eye drops (Vyzulta) 1 drp ophthalmic (eye) DAILY 11/07/23 [History Last Taken Unknown] omeprazole 40 mg capsule,delayed release 40 mg PO DAILY GERD 11/07/23 [History Last Taken Unknown] pravastatin 10 mg tablet 10 mg PO DAILY 11/07/23 [History Last Taken Unknown] Allergy/AdvReac Type Severity Reaction Status Date / Time Penicillins Allergy Unknown Verified 07/14/23 09:54 Sulfa (Sulfonamide Allergy Unknown Verified 07/14/23 09:54 Antibiotics) carvedilol AdvReac Severe Respiratory Verified 07/14/23 09:54 distress acetaminophen [From Vicodin] AdvReac Intermediate Other Verified 07/14/23 09:54 hydralazine AdvReac Intermediate Dizziness Verified 07/14/23 09:54 hydrocodone [From Vicodin] AdvReac Intermediate Other Verified 07/14/23 09:54 morphine AdvReac Intermediate Shortness Verified 07/14/23 09:54 of breath lorazepam AdvReac Other Verified 07/14/23 09:54 Family History Mother COPD (chronic obstructive pulmonary disease) Father Cancer Myocardial infarction Surgical History Hx of eye surgery Hx of tonsillectomy Social History household members: none housing: apartment number of children: 1 current occupational status: retired Smoking Status: Former smoker alcohol intake: never substance use type: does not use caffeine: Yes (all day) Type: coffee ROS Constitutional Constitutional: Denies fever(s) or weight loss Eyes Eyes: Reports systems reviewed and no addt'l complaints, except as documented ENT HEENT: Reports systems reviewed and no addt'l complaints, except as documented Cardiovascular Cardiovascular: Denies chest pain at rest, chest pain with activity, dyspnea at rest, dyspnea on exertion, edema, palpitations or paroxysmal nocturnal dyspnea Respiratory/Chest Respiratory/Chest: Denies dyspnea on exertion, productive cough, shortness of br eath at rest or shortness of breath with exertion Gastrointestinal Gastrointestinal: Denies change in bowel habits, nausea, vomiting or weight changes Genitourinary Genitourinary: Denies difficulty urinating Musculoskeletal Musculoskeletal: Denies joint stiffness or muscle weakness Integumentary Integumentary: Denies lesions Neurologic Neurologic: Denies dizziness or syncope Psychiatric Psychiatric: Denies anxiety Endocrine Endocrinology: Denies excessive sweating or fatigue Hematologic/Lymphatic Hematologic/Lymphatic: Denies anemia Allergic/Immunologic Allergic/Immunologic: Denies seasonal rhinorrhea Physical Exam Const alert, oriented x3 and no apparent distress General Appearance: cooperative HEENT hearing grossly normal bilaterally Head and Scalp: atraumatic Eyes EOMs intact bilaterally Neck General: normal visual inspection Chest inspection of chest normal and palpation of chest normal Resp normal respiratory effort Auscultation: clear to auscultation bilaterally Cardio regular rate, regular rhythm, S1 normal heart sound and S2 normal heart sound Jugular Venous Distention: JVD GI normal to inspection, nondistended, normoactive bowel sounds Extremity normal capillary refill and no pedal edema Peripheral Pulses: Yes pulses 2+ throughout and femoral pulses present Skin no rashes or lesions noted Neuro oriented x3 and CN's II-XII intact bilaterally Psych Appearance: grossly normal and appropriate Risk Stratification Risk Stratification Applicable: Yes Age >/= 65: Yes >/= 3 CAD Risk Factors (HTN, HLD, DM, family hx of CAD, or current smoker): Yes Aspirin Use in the Past 7 Days: Yes Severe Angina (>/= episodes in 24 hours): No EKG ST Changes >/= 0.5mm: No Positive Cardiac Marker: Yes FRANCA Risk Stratification Score: 4 FRANCA % Risk: 20% Risk Objective Data Vital Signs: Vital Signs Temp Pulse Resp BP Pulse Ox O2 Del Method 97.8 F 81 18 129/66 H 94 Room Air 11/08/23 05:30 11/08/23 05:30 11/08/23 05:30 11/08/23 05:30 11/08/23 05:30 11/08/23 08:00 Oxygen Delivery Method Room Air Weight: 180 lb 15.992 oz Body Mass Index (BMI) 31.0 Lab / Micro Data 11/08/23 06:00 11/08/23 06:00 Labs: Laboratory Results - last 24 hr 11/07/23 19:10: WBC 9.1, RBC 4.89, Hgb 14.9, Hct 43.9, MCV 89.8, MCH 30.5, MCHC 33.9, RDW Std Deviation 42.3, RDW Coeff of Suki 12.8, Plt Count 212, MPV 11.2, Immature Gran % (Auto) 0.600, Neut % (Auto) 71.0 H, Lymph % (Auto) 20.5, Curry % (Auto) 6.7, Eos % (Auto) 0.9, Baso % (Auto) 0.3, Absolute Neuts (auto) 6.5, Absolute Lymphs (auto) 1.86, Nucleated RBC % 0, Sodium 140, Potassium 3.3 L, Chloride 108 H, Carbon Dioxide 25.0, Anion Gap 7, BUN 9, Creatinine 0.87, Estim Creat Clear Calc 71.28, Est GFR (MDRD) Af Amer 109, Est GFR (MDRD) Non-Af 90, BUN/Creatinine Ratio 10.4, Glucose 148 H, Calcium 8.9, Troponin I High Sens 66 11/07/23 21:10: Troponin I High Sens 124 H* 11/08/23 02:09: Troponin I High Sens 205 H* 11/08/23 06:00: WBC 10.3, RBC 4.83, Hgb 14.7, Hct 43.9, MCV 90.9, MCH 30.4, MCHC 33.5, RDW Std Deviation 42.9, RDW Coeff of Suki 12.9, Plt Count 207, MPV 10.6, Immature Gran % (Auto) 0.300, Neut % (Auto) 66.1, Lymph % (Auto) 24.1, Curry % (Auto) 7.8, Eos % (Auto) 1.3, Baso % (Auto) 0.4, Absolute Neuts (auto) 6.8, Absolute Lymphs (auto) 2.47, Nucleated RBC % 0, Sodium 141, Potassium 3.6, C hloride 110 H, Carbon Dioxide 27.0, Anion Gap 4 L, BUN 9, Creatinine 0.74, Estim Creat Clear Calc 72.40, Est GFR (MDRD) Af Amer 131, Est GFR (MDRD) Non-Af 109, BUN/Creatinine Ratio 12.2, Glucose 103, Calcium 8.6 Cardiology Labs/Tests 11/07/23 19:10: WBC 9.1, RBC 4.89, Hgb 14.9, Hct 43.9, MCV 89.8, MCH 30.5, MCHC 33.9, Plt Count 212, MPV 11.2, Immature Gran % (Auto) 0.600, Neut % (Auto) 71.0 H, Lymph % (Auto) 20.5, Curry % (Auto) 6.7, Eos % (Auto) 0.9, Baso % (Auto) 0.3, Absolute Neuts (auto) 6.5, Nucleated RBC % 0, Sodium 140, Potassium 3.3 L, Chloride 108 H, Carbon Dioxide 25.0, Anion Gap 7, BUN 9, Creatinine 0.87, Est GFR (MDRD) Af Amer 109, Est GFR (MDRD) Non-Af 90, BUN/Creatinine Ratio 10.4, Glucose 148 H, Calcium 8.9 11/08/23 06:00: WBC 10.3, RBC 4.83, Hgb 14.7, Hct 43.9, MCV 90.9, MCH 30.4, MCHC 33.5, Plt Count 207, MPV 10.6, Immature Gran % (Auto) 0.300, Neut % (Auto) 66.1, Lymph % (Auto) 24.1, Curry % (Auto) 7.8, Eos % (Auto) 1.3, Baso % (Auto) 0.4, Absolute Neuts (auto) 6.8, Nucleated RBC % 0, Sodium 141, Potassium 3.6, Chloride 110 H, Carbon Dioxide 27.0, Anion Gap 4 L, BUN 9, Creatinine 0.74, Est GFR (MDRD) Af Amer 131, Est GFR (MDRD) Non-Af 109, BUN/Creatinine Ratio 12.2, Glucose 103, Calcium 8.6 Rhythm: EKG: ECHO: Stress Test: Cardiac Cath: PCI: CT Surgery: Holter monitor: EPS: PPM: CXR: Chest CT Scan: Radiography Diagnostic Testing: Radiology Impression Chest X-Ray 11/07/23 19:32 IMPRESSION: Degenerative changes, as described above. No demonstrated acute cardiopulmonary process. Electronically Signed: Michael Cooper MD at 19:52 EDT ,
--- NOTE | 2023-11-08 11:02 | CASEMGMT ---
Tertiary facilities in-network with patient's insurance: [facility], [facility], [facility], , [facility], [facility], [facility], [facility]
[2023-11-08 12:59] LABS: ACT Activated Clotting Time 320 sec (74-137)
[2023-11-08 12:59] LABS: ACT Activated Clotting Time 261 sec (74-137)
[2023-11-08] MEDS: 0.9% Normal Saline (1000mL) 1,000 ML 100 ML IV (13:05)
--- NOTE | 2023-11-08 13:20 | PN.HOSP_ITS ---
Reason for Visit Reason for Visit: Diagnoses Atherosclerotic heart disease of zuni coronary artery without angina pectoris (11/07/23) Chest pain, unspecified (11/07/23) Other specified abnormal findings of blood chemistry (11/07/23) Subjective Subjective Patient admitted overnight for chest pain. Saw at bedside this morning. Sitting up comfortably in bed, no acute distress. Denied any chest pain at rest currently. He did note that he went down from nuclear stress test this morning and per Cards recs, stress test was canceled and plan instead is for left heart cath later this morning. Patient has had multiple caths in the past, has no issue with the plan. No other acute concerns. Objective Data Objective Data Vital Signs: Vital Signs Temp Pulse Resp BP Pulse Ox O2 Del Method 97.8 F 81 18 129/66 H 94 Room Air 11/08/23 05:30 11/08/23 05:30 11/08/23 05:30 11/08/23 05:30 11/08/23 05:30 11/08/23 09:30 Oxygen Delivery Method Room Air Weight: 82.1 kg Body Mass Index (BMI) 31.0 Lab / Micro Data 11/08/23 06:00 11/08/23 06:00 Labs: Laboratory Results - last 24 hr 11/07/23 19:10: WBC 9.1, RBC 4.89, Hgb 14.9, Hct 43.9, MCV 89.8, MCH 30.5, MCHC 33.9, RDW Std Deviation 42.3, RDW Coeff of Suki 12.8, Plt Count 212, MPV 11.2, Immature Gran % (Auto) 0.600, Neut % (Auto) 71.0 H, Lymph % (Auto) 20.5, [place] % (Auto) 6.7, Eos % (Auto) 0.9, Baso % (Auto) 0.3, Absolute Neuts (auto) 6.5, Absolute Lymphs (auto) 1.86, Nucleated RBC % 0, Sodium 140, Potassium 3.3 L, Chloride 108 H, Carbon Dioxide 25.0, Anion Gap 7, BUN 9, Creatinine 0.87, Estim Creat Clear Calc 71.28, Est GFR (MDRD) Af Amer 109, Est GFR (MDRD) Non-Af 90, BUN/Creatinine Ratio 10.4, Glucose 148 H, Calcium 8.9, Troponin I High Sens 66 11/07/23 21:10: Troponin I High Sens 124 H* 11/08/23 02:09: Troponin I High Sens 205 H* 11/08/23 06:00: WBC 10.3, RBC 4.83, Hgb 14.7, Hct 43.9, MCV 90.9, MCH 30.4, MCHC 33.5, RDW Std Deviation 42.9, RDW Coeff of Suki 12.9, Plt Count 207, MPV 10.6, Immature Gran % (Auto) 0.300, Neut % (Auto) 66.1, Lymph % (Auto) 24.1, [place] % (Auto) 7.8, Eos % (Auto) 1.3, Baso % (Auto) 0.4, Absolute Neuts (auto) 6.8, Absolute Lymphs (auto) 2.47, Nucleated RBC % 0, Sodium 141, Potassium 3.6, Chloride 110 H, Carbon Dioxide 27.0, Anion Gap 4 L, BUN 9, Creatinine 0.74, Estim Creat Clear Calc 72.40, Est GFR (MDRD) Af Amer 131, Est GFR (MDRD) Non-Af 109, BUN/Creatinine Ratio 12.2, Glucose 103, Calcium 8.6 11/08/23 12:21: Activated Clotting Time 320 H 11/08/23 12:46: Activated Clotting Time 261 H Radiography Diagnostic Testing: Radiology Impression Chest X-Ray 11/07/23 19:32 IMPRESSION: Degenerative changes, as described above. No demonstrated acute cardiopulmonary process. Electronically Signed: Michael Cooper MD at 19:52 EDT , Physical Exam Const alert, oriented x3 and no apparent distress Constitutional Narrative: Obese. General Appearance: cooperative and comfortable HEENT normocephalic, head/scalp atraumatic, hearing grossly normal bilaterally, nasal mucous membranes and turbinates normal and moist oral mucous membranes Eyes PERRL, EOMs intact bilaterally and conjunctivae normal Neck full ROM Chest inspection of chest normal Resp normal respiratory effort, normal air movement, no use of accessory muscles and clear to auscultation bilaterally Cardio regular rate, regular rhythm, no murmurs and peripheral pulses 2+ throughout GI normal to inspection, nondistended, normoactive bowel sounds, soft to palpation, non-tender and non-distended Back/Spine normal ROM Extremity normal to inspection, full ROM and no pedal edema Skin no rashes or lesions noted Neuro no focal motor deficits and no sensory deficits noted Speech: speech normal Psych mental status grossly normal Assessment & Plan Assessment/Plan (1) NSTEMI, initial episode of care: PLAN: Plan Patient is a 78-year-old male who presented [facility] ED on 11/07/2023 with chest pain. 1. NSTEMI; history of HTN, HLD, PAD - Cardiology following. Presented w/ chest pain, troponin trend 66 > 124 > 205. Had negative stress test in July so initial plan was for repeat stress test, but per Cards stress test was canceled. Had left heart cath on 11/07 that showed severe proximal to mid 80% calcified lesion in LAD with JUSTIN x 1 placed. No other significant coronary lesions. LVEF 65% by LV gram. Continue home aspi rin, Plavix added on 11/07. Continue home statin. Continue home toprol, imdur, lasix, lisinopril, amlodipine. If remains stable overnight, hopeful for discharge home tomorrow. Appreciate further Cardiology recs. Chronic medical conditions: - GERD: Continue home PPI. - Glaucoma: Continue home eyedrops. - Obesity: BMI 31 on admit. Encouraged lifestyle modifications. Complicates hospital course, care and prognosis. - BPH w/ obstructive symptoms: Continue home flomax. DVT ppx: Lovenox Code status: Full code, verified Expected disposition: Home, 1-2 days Total clinical time spent by myself addressing the patient's medical issues, reviewing all the data, and collaborating with patient's care team: 35 minutes. Charges/Coding Visit Charges Inpatient E&M: 02188 Subs Hosp L2
--- NOTE | 2023-11-08 14:08 | CRPHASE1_ITS ---
Patient Communication Patient Information PHII Cardiac Rehab Discussed with Patient:: Yes Guide to Cardiac Rehab Given to Patient:: Yes Cardiac Rehab Facility Choice List Given to Patient:: Yes Communication to Cardiac Rehab Choice Program [facility] CR PHII:: Communication Given to CR Slip Tender:: Marilu Decker Phase II Cardiac Rehab:: Yes Sessions:: 36 sessions - 3 days/wk, 12 weeks Cardiac Rehabilitation Info Program Information Cardiac Rehabilitation Program Information: Cardiac Rehab The cardiac rehab team at [facility] consists of highly skilled exercise physiologists, nurses, respiratory therapists and physicians working together with you. Our purpose is to help you have a full recovery and achieve the goals you set for yourself. Over the years many of our patients have returned to activities they assumed they would never do again! We can help restore your confidence and motivation to make lifestyle changes that can have a significant impact on your health and quality of life! We can help answer questions and concerns you may have about exercise, lifestyle, medications, diet, stress and anxiety which are common following a hospitalization. WE monitor ECG and vital signs during exercise and discuss your progress with you and report to your physician(s). Cardiac Rehab is proven to help reduce readmissions, improve functional capacity and lower recurrence of problems with your heart. Our Cardiac Rehab program is Certified by the [place] [employer] Pulmonary [employer] (AACVPR) and Accredited by the [employer] through our [facility]. You can contact us at . We invite you to call us with your questions or to get started in our program. If you have other questions or concerns be sure to ask your physician/provider during your follow-up visit. WE look forward to seeing you!
--- NOTE | 2023-11-08 14:08 | CRPH1.INSTRU ---
General Education Discussed with Patient CAD and cardiac anatomy and function:: Patient communicates acknowledgment Explanation of diagnoses and procedures:: Patient communicates acknowledgment Sign/Symptoms of NM:: Patient communicates acknowledgment Antiplatelet therapy: Patient communicates acknowledgment Proper use of NTG-SL: Patient communicates acknowledgment Emergency procedures and activation of EMS: Patient communicates acknowledgment Compliance of all prescribed medications: Patient communicates acknowledgment Smoking Risk Factors Patient Nicotine/Smoking Risk Factors Are:: Non-smoker Recommendations Recommendations Include:: Previous smoker; encourage continued cessation Response Code Nicotine/Smoking Response Code:: Patient communicates acknowledgment Dyslipidemia Risk Factors Patient Dyslipidemia Risk Factors Are:: Total Cholesterol, Triglycerides, HDL and LDL Recommendations Recommendations Include:: Lipid profile not available, Reviewed NCEP/ATP guidelines and Therapeutic Lifestyle Change dietary guidelines Response Code Dyslipidemia Response Code:: Patient communicates acknowledgment Overweight/Obesity Risk Factors Patient Overweight/Obesity Risk Factors Are:: Obesity - > or = 30 Recommendations Recommendations Include:: Weight loss of 5-10%, Reduced calorie diet and Exercise 5-7 times/week Response Code Overweight/Obesity:: Patient communicates acknowledgment Hypertension Recommendations Recommendations Include:: Maintain BP <130/85, DASH dietary guidelines, Decrease/maintain normal body weight and Moderation of ETOH Response Code Hypertension:: Patient communicates acknowledgment Metabolic Syndrome Risk Factors Patient Metabolic Syndrome Risk Factors Are [3 of 5]:: Fasting blood sugar > 100 mg/dL, Waist circumference > 35 [female] or 40 [male], High triglyceride >150, Hypertension and Low HDL <40 [male] or < 50 [female] Recommendations Recommendations Include:: Reinforce compliance to risk factor modifications and Encouraged follow-up with Primary Care Physician Response Code Metabolic Syndrome Response Code:: Patient communicates acknowledgment Sedentary Risk Factors Patient Sedentary Risk Factors Are:: Lack of regular exercise Recommendations Recommendations Include:: Aerobic exercise 5-7 times/week for 20-30 minutes continuously, Benefits of regular exercise, Discussed home walking program and Monitored Outpatient Cardiac Rehab Response Code Sedentary Response Code:: Patient communicates acknowledgment Stress Recommendations Recommendations Include:: Identification of stressors, and assessment of coping skills and Stress management techniques Response Code Stress Response Code:: Patient communicates acknowledgment
[2023-11-08] MEDS: Metoprolol(XL)Succ 100 MG Tablet PO (14:13)
[2023-11-08] MEDS: Furosemide 20 MG Tablet PO (14:14)
[2023-11-08] MEDS: Isosorbide Mononitrate 60 MG Tablet PO (14:14)
[2023-11-08] MEDS: Pantoprazole Sodium 40 MG Tablet PO (14:15)
[2023-11-08] MEDS: amLODIPine 10 MG Tablet PO (14:15)
[2023-11-08] MEDS: Timolol 0.5% 5ML OPTH.BTL 1 DRP EACH EYE ×2 (14:16→20:39)
[2023-11-08] MEDS: BRIMONIDINE 0.2% 5ML BOTTLE 1 DRP EACH EYE ×2 (14:17→20:38)
[2023-11-08] MEDS: oxyCODONE 5 MG Tablet 10 MG PO (16:14)
--- NOTE | 2023-11-08 16:56 | CL.D_ITS ---
Patient Name: TRI FRANK Study Date: 11/08/2023 Performing: Reji Monson MD Ht: 64 inches 162.56 cm : 1945 Wt: 181.2 lbs 82.1 kg Age: 78 Gender: male BSA: 1.87 PROCEDURE(S) PERFORMED DC01-(10052)LHC/COR/LV IC12-(21036/C9600)JUSTIN W/WO PTCA, SINGLE CORONARY ARTERY CLINICAL PROFILE AND INDICATIONS Indications: Suspected CAD Heart Failure: None Stress/Imaging Stress/Image Study Performed: No CAD Presentations: Unstable angina. CONCLUSIONS Severe proximal to mid 80% calcified lesion, in the LAD RECOMMENDATIONS Referred for immediate PCI DESCRIPTION OF PROCEDURE The patient arrived to the procedure lab. The risks and benefits of the procedure as well as a full description of our services here and current unavailability of surgical backup were fully explained to the patient and/or their significant other prior to the catheterization. The Timeout was completed, verifying the correct patient and procedure. The patient's procedural site was prepped and draped in the usual fashion. Local anesthetic was given subcutaneously to right radial region with Lidocaine 2%. Using a modified Seldinger technique, arterial access was obtained via the right radial artery, a 6Fr sheath was inserted. Right Coronary Artery selective angiography was then performed in multiple views using a 5 Fr. 4.0 [place] catheter. Left Coronary Artery selective angiography was performed in multiple views using a 5 Fr. 4.0 [place] catheter. Left Ventriculography was performed in DUMONT projection using a 5 Fr. [place] catheter. LV to AO pullback pressures were then recorded.The arterial sheath was pulled and a TR Band was applied for hemostasis CORONARY ANGIOGRAPHY DOMINANCE: Left Dominant LEFT HEART ASSESSMENT Left Ventricular Ejection Fraction: by LV Gram 65 % Normal LV wall motion Normal Left Ventricular systolic function LEFT MAIN: Mild calcification LEFT ANTERIOR DESCENDING ARTERY: Moderate calcification, Proximal complex 80% stenotic lesion at the takeoff of the first diagonal. The rest of the vessel appears to be mildly diseased. CIRCUMFLEX ARTERY: Mild luminal irregularities less than 30% RIGHT CORONARY ARTERY: Moderate luminal irregularities up to 50% COMPLICATIONS No Complications PROCEDURE MEDICATIONS Versed 1 mg IV Fentanyl 50 mcg IV Versed 1 mg IV Fentanyl 50 mcg IV Versed 1 mg IV Oxygen: 2 L/min via nasal cannula Brilinta 180 mg PO @ 11/08/2023 12:31:08 Heparin 6000 unit(s) IV 11/08/2023 12:15:54 Nitro 200 mcg IC 11/08/2023 12:33:40 Metoprolol 10 mg iv 11/08/2023 12:33:59 Nitro 200 mcg IC 11/08/2023 12:36:35 Zofran 4 mg IV 11/08/2023 12:33:49 SUMMARY OF HEMODYNAMIC DATA Time AIR REST ECG 11:05:48 AO 141/83 (109) SA 11:43:43 LV 152/13, 34 11:54:22 LV 147/10, 12 11:54:31 LV 160/12, 23 11:55:09 LV 165/13, 18 11:55:18 LVp 161/13, 17 11:55:22 AOp 161/69 (108) 11:55:29 AO 186/88 (130) 12:30:40 Signed By Reji Monson MD On 11/08/2023 16:56:52 Signed By Reji Monson MD On 11/08/2023 16:56:29 Reji Monson MD
[2023-11-08] MEDS: Clopidogrel Bisulfate 300 MG Tablet PO (18:40)
[2023-11-08] MEDS: Tamsulosin HCl 0.4 MG Capsule PO (20:38)
[2023-11-08] MEDS: Pravastatin 20 MG Tablet 10 MG PO (20:38)
[2023-11-08] MEDS: Metoprolol(XL)Succ 50 MG Tablet PO (20:40)
[2023-11-09 02:40] VITALS: BP 106/61; PULSE 59; RESP 16; TEMP 36.1; O2SAT 94
[2023-11-09] MEDS: Dorzolamide 2% 10ml Bottle 1 DRP OPHTHALMIC (05:14)
[2023-11-09 07:40] LABS: Hematocrit 41.1 % (40-54); Hemoglobin 13.5 g/dL (13.0-16.5); Mean Corp Hgb Conc 32.8 g/dL (32-36); Mean Corpuscular Hgb 30.3 pg (27.0-32.0); Mean Corpuscular Volume 92.4 fL (80-94); Mean Platelet Vol. 11.2 fl (6.2-12.0); Platelet Count 203 K/mm3 (150-450); RBC Distribution Width CV 13.2 % (11.6-14.6); RBC Distribution Width SD 44.8 fl (35.1-43.9); Red Blood Count 4.45 M/mm3 (4.6-6.2)
[2023-11-09 08:06] LABS: ALB/GLOB Ratio 0.9 RATIO (0.9-2.4); AST(SGOT) 12 U/L (15-37); Alanine Aminotransfer ALT/SGPT 19 U/L (16-61); Albumin, Serum 3.2 g/dL (3.2-5.0); Alkaline Phosphatase 54 U/L (45-117); Anion Gap 4 (5-15); BUN 15 mg/dL (7-18); BUN/Creat Ratio 19.2 RATIO (10-20); Calcium,Total 8.4 mg/dL (8.5-10.1); Chloride 107 mmol/L (98-107); Creatinine, Serum 0.78 mg/dL (0.70-1.30); EST Glomerular Filtration Rate 101 mL/min (>60); Est Glom Filt Rate - Afr Amer 123 mL/min (>60); Globulin 3.6 g/dL (2.2-4.2); Glucose 92 mg/dL (74-106); Potassium 3.7 mmol/L (3.5-5.1); Protein, Total 6.8 g/dL (6.4-8.2); Sodium Level 137 mmol/L (136-145)
[2023-11-09 08:40] VITALS: BP 136/62; PULSE 70; RESP 18; TEMP 36.1; O2SAT 96
--- NOTE | 2023-11-09 09:14 | PCM.PN.CARD ---
Subjective Subjective Patient seen and evaluated. Doing well with no complaints. Objective Data Vital Signs: Vital Signs Temp Pulse Resp BP Pulse Ox O2 Del Method 97.0 F L 70 18 136/62 H 96 Room Air 11/09/23 08:40 11/09/23 08:40 11/09/23 08:40 11/09/23 08:40 11/09/23 08:40 11/09/23 08:40 Oxygen Delivery Method Room Air Weight: 180 lb 15.992 oz Body Mass Index (BMI) 31.0 Intake & Output: Intake and Output for Last 24 Hours 11/07/23 11/08/23 11/09/23 23:59 23:59 23:59 Intake Total 800 / 800 Output Total 0 / 0 Balance 800 / 800 0 / 0 Lab / Micro Data 11/09/23 07:10 11/09/23 07:10 Labs: Laboratory Results - last 24 hr 11/08/23 12:21: Activated Clotting Time 320 H 11/08/23 12:46: Activated Clotting Time 261 H 11/09/23 07:10: WBC 13.0 H, RBC 4.45 L, Hgb 13.5, Hct 41.1, MCV 92.4, MCH 30.3, MCHC 32.8, RDW Std Deviation 44.8 H, RDW Coeff of Suki 13.2, Plt Count 203, MPV 11.2, Sodium 137, Potassium 3.7, Chloride 107, Carbon Dioxide 26.0, Anion Gap 4 L, BUN 15, Creatinine 0.78, Estim Creat Clear Calc 72.40, Est GFR (MDRD) Af Amer 123, Est GFR (MDRD) Non-Af 101, BUN/Creatinine Ratio 19.2, Glucose 92, Calcium 8.4 L, Total Bilirubin 1.30 H, AST 12 L, ALT 19, Alkaline Phosphatase 54, Total Protein 6.8, Albumin 3.2, Globulin 3.6, Albumin/Globulin Ratio 0.9 Cardiology Labs/Tests 11/09/23 07:10: WBC 13.0 H, RBC 4.45 L, Hgb 13.5, Hct 41.1, MCV 92.4, MCH 30.3, MCHC 32.8, Plt Count 203, MPV 11.2, Sodium 137, Potassium 3.7, Chloride 107, Carbon Dioxide 26.0, Anion Gap 4 L, BUN 15, Creatinine 0.78, Est GFR (MDRD) Af Amer 123, Est GFR (MDRD) Non-Af 101, BUN/Creatinine Ratio 19.2, Glucose 92, Calcium 8.4 L, Total Bilirubin 1.30 H Rhythm: EKG: ECHO: Stress Test: Cardiac Cath: PCI: CT Surgery: Holter monitor: EPS: PPM: CXR: Chest CT Scan: Physical Exam Const alert, oriented x3 and no apparent distress General Appearance: cooperative HEENT hearing grossly normal bilaterally Head and Scalp: atraumatic Eyes EOMs intact bilaterally Neck General: normal visual inspection Chest inspection of chest normal and palpation of chest normal Resp normal respiratory effort Auscultation: clear to auscultation bilaterally Cardio regular rate, regular rhythm, S1 normal heart sound and S2 normal heart sound Jugular Venous Distention: JVD GI normal to inspection, nondistended, normoactive bowel sounds Extremity normal capillary refill and no pedal edema Peripheral Pulses: Yes pulses 2+ throughout and femoral pulses present Skin no rashes or lesions noted Neuro oriented x3 and CN's II-XII intact bilaterally Psych Appearance: grossly normal and appropriate Assessment & Plan Assessment/Plan (1) Elevated troponin: PLAN: He does have evidence of elevated troponin. He had a stress test performed in July of this year which was negative. His cardiac catheterization demonstrated a high-grade proximal to mid LAD lesion. This was angioplastied and stented successfully. He had mild hematoma of his right arm which has resolved. He can be discharged home today on guideline directed medical therapy. (2) HTN (hypertension): PLAN: His blood pressure appears to be under good control but at this particular time I would not make any changes. (3) Hyperlipidemia: PLAN: He will continue with risk factor modification.
[2023-11-09 09:41] VITALS: PULSE 70
[2023-11-09] MEDS: Metoprolol(XL)Succ 100 MG Tablet PO (09:41)
[2023-11-09] MEDS: Isosorbide Mononitrate 60 MG Tablet PO (09:41)
[2023-11-09] MEDS: Clopidogrel Bisulfate 75 MG Tablet PO (09:42)
[2023-11-09] MEDS: Pantoprazole Sodium 40 MG Tablet PO (09:42)
[2023-11-09] MEDS: Lisinopril 20 MG Tablet PO (09:42)
[2023-11-09] MEDS: BRIMONIDINE 0.2% 5ML BOTTLE 1 DRP EACH EYE (09:42)
[2023-11-09] MEDS: Timolol 0.5% 5ML OPTH.BTL 1 DRP EACH EYE (09:42)
[2023-11-09] MEDS: amLODIPine 10 MG Tablet PO (09:42)
[2023-11-09] MEDS: Furosemide 20 MG Tablet PO (09:42)
[2023-11-09] MEDS: Aspirin 81 MG TAB.CHEW PO (09:42)
[2023-11-09] MEDS: Enoxaparin 40 MG/0.4 ML Syringe SC (09:54)
--- NOTE | 2023-11-09 11:00 | CASEMGMT ---
JOHNY QUIROZ Face to Face with patient for initial transition planning/care coordination assessment. JOHNY QUIROZ introduced self and role at [facility]. Patient lying in bed, alert and oriented, forgetful at time but able to answer questions appropriately . Patient willing to participate in assessment and is able to answer all questions appropriately. Care providers, pharmacy, and demographics verified. PCP: Rico Oneil Specialists: Cristobal, telemetry technician; Macario, escrow closer; [facility]erred [facility] Benef[facility]: yes Living Will/HPOA: none LNOK: daughter Living Arrangements: Patient lives alone in a first floor apartment with no steps to enter. Patient is independent at home. Transportation: self, daughter, hospital van DME/HHC: Pateint has cane, wheelchair, cpap, home oxygen at through [facility]. No previous HHC or SNF Patient wishes to discharge home, denies need for home health at this time. Patient gave permission to discuss discharge plans with daughter Patient states he has no further needs or concerns at this time. CM to follow for discharge planning needs that may arise. JOHNY QUIROZ called daughter Meliza and updated regarding discharge plans and discharge later today. Daughter states she will be able to pickup patient around 5pm. Meliza states she notices patient is becoming more forgetful at time, CM encourage daughter to discuss with patient's PCP, daughter voiced understanding. Disposition Plan: Patient to discharge home with family support and follow-up plans in place. Kym AGRAWAL, RN, CM
--- NOTE | 2023-11-09 11:39 | DCINST_ITS ---
Discharge Instructions Diet
--- NOTE | 2023-11-09 11:39 | PCM.DC.SUM ---
Providers Date of Admission: 11/07/23 Date of Discharge: 11/09/23 Primary Care Physician: Jessica Galaviz NP Reason For Visit: CHEST PAIN Diagnosis Discharge Diagnosis (1) Elevated troponin: Status: Acute Code(s): R79.89 - Other specified abnormal findings of blood chemistry (2) HTN (hypertension): Status: Chronic Code(s): I10 - Essential (primary) hypertension (3) Hyperlipidemia: Status: Chronic Code(s): E78.5 - Hyperlipidemia, unspecified Medications at Discharge Home Medications timolol maleate 0.5 % eye gel forming solution (Timoptic-XE) 1 drp Q eye health 07/28/16 pantoprazole 40 mg tablet,delayed release 40 mg PO DAILY reflux 06/13/17 nitroglycerin 0.4 mg sublingual tablet 0.4 mg sublingual Q5M PRN Chest Pain 03/05/18 cyanocobalamin (vitamin B-12) 1,000 mcg tablet 1,000 mcg sublingual DAILY vitamin 06/24/18 tamsulosin 0.4 mg capsule (Flomax) 0.4 mg PO QHS prostate 06/24/18 cholecalciferol (vitamin D3) 50 mcg (2,000 unit) capsule 2,000 unit PO DAILY vitamin 03/20/19 furosemide 20 mg tablet 20 mg PO DAILY diuretic 03/20/19 oxycodone-acetaminophen 10 mg-325 mg tablet 10 mg PO BID PRN Pain Score 1-05/0303/20/19 amlodipine 10 mg tablet 10 mg PO DAILY high blood pressure 06/30/23 dorzolamide 2 % eye drops 1 drp ophthalmic (eye) TID glaucoma 06/30/23 potassium chloride 20 mEq tablet,extended release (K-Tab) 20 meq PO DAILY potassium level 06/30/23 glucosamine sulfate-methylsulfonylmethane 500 mg-500 mg tablet 2 tab PO DAILY joint health 07/14/23 isosorbide mononitrate 60 mg tablet,extended release 24 hr 60 mg PO DAILY 07/14/23 metoprolol succinate 100 mg tablet,extended release 24 hr 150 mg PO DAILY 07/14/23 vitamin B complex 1 cap PO DAILY vitamin 07/14/23 benazepril 20 mg tablet 20 mg PO BID 11/07/23 brimonidine 0.2 %-timolol 0.5 % eye drops 1 drp ophthalmic (eye) BID 11/07/23 latanoprostene bunod 0.024 % eye drops (Vyzulta) 1 drp ophthalmic (eye) DAILY 11/07/23 omeprazole 40 mg capsule,delayed release 40 mg PO DAILY GERD 11/07/23 aspirin 81 mg chewable tablet 81 mg PO DAILYCM 90 days #90 tabs 11/09/23 atorvastatin 40 mg tablet 40 mg PO QHS 90 days #90 tabs 11/09/23 clopidogrel 75 mg tablet 75 mg PO DAILY 90 days #90 tabs 11/09/23 Hospital Course Operations None Procedures Cardiac catheterization, EKG and - (Chest x-ray) Summary of Care Provided Minutes Spent on Discharge: 35 Hospital Course: Patient is a 78-year-old male who presented [facility] ED on 11/07/2023 with chest pain. Hospital course as noted below. Patient discharged home with no therapy needs in stable condition on 11/08. 1. NSTEMI; history of HTN, HLD, PAD Presented w/ chest pain, troponin trend 66 > 124 > 205. Had negative stress test in July so initial plan was for repeat stress test, but per Cards stress test was canceled. Had left heart cath on 11/07 that showed severe proximal to mid 80% calcified lesion in LAD with JUSTIN x 1 placed. No other significant coronary lesions. LVEF 65% by LV gram. ? Cardiology followed. Discharged on aspirin, Plavix, high intensity atorvastatin. Continued home Toprol, Imdur, Lasix, lisinopril and amlodipine. Outpatient follow-up with cardiology in next few weeks for further medication titration. Chronic medical conditions: - GERD: Continue home PPI. - Glaucoma: Continue home eyedrops. - Obesity: BMI 31 on admit. Encouraged lifestyle modifications. Complicated hospital course, care and prognosis. - BPH w/ obstructive symptoms: Continue home flomax. Total clinical time spent by myself addressing the patient's medical issues, reviewing all the data, and collaborating with patient's care team: 35 minutes. Physical Exam Const alert, oriented x3 and no apparent distress Constitutional Narrative: Obese. General Appearance: cooperative and comfortable HEENT normocephalic, head/scalp atraumatic, hearing grossly normal bilaterally, nasal mucous membranes and turbinates normal and moist oral mucous membranes Eyes PERRL, EOMs intact bilaterally and conjunctivae normal Neck full ROM Chest inspection of chest normal Resp normal respiratory effort, normal air movement, no use of accessory muscles and clear to auscultation bilaterally Cardio regular rate, regular rhythm, no murmurs and peripheral pulses 2+ throughout GI normal to inspection, nondistended, normoactive bowel sounds, soft to palpation, non-tender and non-distended Back/Spine normal ROM Extremity normal to inspection, full ROM and no pedal edema Skin no rashes or lesions noted Neuro no focal motor deficits and no sensory deficits noted Speech: speech normal Psych mental status grossly normal Weight / BMI Weight Weight: 82.1 kg Body Mass Index (BMI) 31.0 ABG / Lab / Microbiology Data 11/09/23 07:10 11/09/23 07:10 Laboratory: Laboratory Results - last 24 hr 11/08/23 12:21: Activated Clotting Time 320 H 11/08/23 12:46: Activated Clotting Time 261 H 11/09/23 07:10: WBC 13.0 H, RBC 4.45 L, Hgb 13.5, Hct 41.1, MCV 92.4, MCH 30.3, MCHC 32.8, RDW Std Deviation 44.8 H, RDW Coeff of Suki 13.2, Plt Count 203, MPV 11.2, Sodium 137, Potassium 3.7, Chloride 107, Carbon Dioxide 26.0, Anion Gap 4 L, BUN 15, Creatinine 0.78, Estim Creat Clear Calc 72.40, Est GFR (MDRD) Af Amer 123, Est GFR (MDRD) Non-Af 101, BUN/Creatinine Ratio 19.2, Glucose 92, Calcium 8.4 L, Total Bilirubin 1.30 H, AST 12 L, ALT 19, Alkaline Phosphatase 54, Total Protein 6.8, Albumin 3.2, Globulin 3.6, Albumin/Globulin Ratio 0.9 Meaningful Use Info Meaningful Use Meaningful Use Diagnoses (Choose all that apply): AMI AMI/Post PCI/Angioplasty Aspirin given w/in 24hrs of arrival?: Yes ASA at discharge?: Yes Statins at discharge?: Yes Emmanuel/ARB at discharge?: Yes Beta Vivien at discharge?: Yes Done w/ Acute IA measure.: Yes Ischemic Stroke Statin Dosing Therapy Reference: STATIN DOSE THERAPY REFERENCE: * Patients > 75 years receive moderate or high dose statin therapy. * Patients 75 years or YOUNGER should receive HIGH intensity statin dose unless contraindicated. You will be required to document reason for non-treatment if statin daily dose does not meet guidelines. HIGH DOSE STATIN THERAPY DAILY Atorvastatin > than or = to 40 mg Rosuvastatin > than or = to 20 mg Amlodipine + Atorvastatin > than or = to 2.5/40 mg Ezetimibe + Simvastatin 10/80 mg Simvastatin 80mg Discharge Plan Admission Admit Date/Time: 11/08/23 15:12 Primary Reason for Your Visit: Chest pain Attending Provider: Rudi Anne Primary Care Provider: Jessica Galaviz NP Consulting Providers: Mihir Harden Instructions Additional Instructions / Restrictions: Please take aspirin and Plavix daily going forward. Please also take Lipitor 40 mg daily going forward. Continue all other home medications as normal as noted below. The tour production supervisor office will call to schedule you a follow-up appointment soon. Discharge Orders/Prescriptions Prescriptions: New clopidogrel 75 mg Tablet 75 mg PO DAILY 90 Days Qty: 90 3RF aspirin 81 mg Tablet,Chewable 81 mg PO DAILYCM 90 Days Qty: 90 3RF Continued isosorbide mononitrate 60 mg tablet extended release 24 hr 60 mg PO DAILY Patient Comments: TAKE 1 TABLET BY MOUTH EVERY DAY IN THE MORNING metoprolol succinate 100 mg tablet extended release 24 hr 150 mg PO DAILY Rx Instructions: 100 mg QAM, 50 mg QHS vitamin B complex Capsule 1 cap PO DAILY Patient Comments: SUPPLEMENT timolol maleate [Timoptic-XE] 1 DROP gel forming solution 1 drp Each Eye QHS pantoprazole 40 MG tablet 40 mg PO DAILY nitroglycerin 0.4 MG tablet 0.4 mg sublingual Q5M PRN (Reason: Chest Pain) cyanocobalamin (vitamin B-12) 1,000 MCG tablet 1,000 mcg sublingual DAILY Patient Comments: TAKE ONE TABLET BY MOUTH EVERY DAY tamsulosin [Flomax] 0.4 MG capsule 0.4 mg PO QHS furosemide 20 MG tablet 20 mg PO DAILY cholecalciferol (vitamin D3) 2,000 UNIT capsule 2,000 unit PO DAILY oxycodone-acetaminophen 1 EACH tablet 10 mg PO BID PRN (Reason: Pain Score 1-10/10) Patient Comments: TAKE 1 TABLET BY MOUTH EVERY 12 HOURS glucosamine sulfate-msm 500-500 mg tablet 2 tab PO DAILY dorzolamide 2 % drops 1 drp ophthalmic (eye) TID Patient Comments: INSTILL 1 DROP INTO BOTH EYES 3 TIMES A DAY amlodipine 10 mg tablet 10 mg PO DAILY Patient Comments: TAKE 1 TABLET BY MOUTH EVERY DAY potassium chloride [K-Tab] 20 mEq tablet extended release 20 meq PO DAILY Rx Instructions: orally daily; omeprazole 40 mg capsule,delayed release(DR/EC) 40 mg PO DAILY benazepril 20 mg tablet 20 mg PO BID brimonidine-timolol 0.2-0.5 % drops 1 drp ophthalmic (eye) BID Vyzulta 0.024 % drops 1 drp ophthalmic (eye) DAILY atorvastatin 40 mg Tablet 40 mg PO QHS 90 Days Qty: 90 3RF Discontinued lisinopril 20 mg tablet 20 mg PO DAILY Qty: 30 1RF aspirin 81 mg tablet,chewable 81 mg PO DAILY Qty: 1 0RF Patient Comments: DOES NOT TAKE ON REGULAR BASIS clopidogrel [Plavix] 75 mg tablet 75 mg PO DAILY Qty: 30 1RF pravastatin 10 mg tablet 10 mg PO DAILY Referrals / Follow Up: Jessica Galaviz NP, CASING OPERATOR-C [Primary Care Provider] - 11/14/23 10:30 am Disposition Disposition (needs filled in before D/C Order can be placed): Home, Self Care Charges/Coding Visit Charges Inpatient E&M: 37181 Disch Hosp >30min
--- NOTE | 2023-11-09 13:46 | PHA.DC.MR.R ---
Pharmacy [facility] Recon[facility] Pharmacy Service has performed discharge medication reconciliation for this patient. Patient has been on aspirin, clopidogrel and atorvastatin within the last few months. 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 The patient's discharge medication list was reviewed for discrepancies and discrepancies were resolved. Medications at Discharge Home Medications timolol maleate 0.5 % eye gel forming solution (Timoptic-XE) 1 drp QHS eye health 07/28/16 pantoprazole 40 mg tablet,delayed release 40 mg PO DAILY reflux 06/13/17 nitroglycerin 0.4 mg sublingual tablet 0.4 mg sublingual Q5M PRN Chest Pain 03/05/18 cyanocobalamin (vitamin B-12) 1,000 mcg tablet 1,000 mcg sublingual DAILY vitamin 06/24/18 tamsulosin 0.4 mg capsule (Flomax) 0.4 mg PO QHS prostate 06/24/18 cholecalciferol (vitamin D3) 50 mcg (2,000 unit) capsule 2,000 unit PO DAILY vitamin 03/20/19 furosemide 20 mg tablet 20 mg PO DAILY diuretic 03/20/19 oxycodone-acetaminophen 10 mg-325 mg tablet 10 mg PO BID PRN Pain Score 1-05/0303/20/19 amlodipine 10 mg tablet 10 mg PO DAILY high blood pressure 06/30/23 dorzolamide 2 % eye drops 1 drp ophthalmic (eye) TID glaucoma 06/30/23 potassium chloride 20 mEq tablet,extended release (K-Tab) 20 meq PO DAILY potassium level 06/30/23 glucosamine sulfate-methylsulfonylmethane 500 mg-500 mg tablet 2 tab PO DAILY joint health 07/14/23 isosorbide mononitrate 60 mg tablet,extended release 24 hr 60 mg PO DAILY 07/14/23 metoprolol succinate 100 mg tablet,extended release 24 hr 150 mg PO DAILY 07/14/23 vitamin B complex 1 cap PO DAILY vitamin 07/14/23 benazepril 20 mg tablet 20 mg PO BID 11/07/23 brimonidine 0.2 %-timolol 0.5 % eye drops 1 drp ophthalmic (eye) BID 11/07/23 latanoprostene bunod 0.024 % eye drops (Vyzulta) 1 drp ophthalmic (eye) DAILY 11/07/23 omeprazole 40 mg capsule,delayed release 40 mg PO DAILY GERD 11/07/23 aspirin 81 mg chewable tablet 81 mg PO DAILYCM 90 days #90 tabs 11/09/23 atorvastatin 40 mg tablet 40 mg PO QHS 90 days #90 tabs 11/09/23 clopidogrel 75 mg tablet 75 mg PO DAILY 90 days #90 tabs 11/09/23
--- NOTE | 2023-11-09 14:15 | PHA.DC_ITS ---
Pharmacy [facility] Pharmacy Service has performed discharge medication reconciliation and counseling for this patient. Spoke to patient regarding duplicate PPI. Both omeprazole and pantoprazole were on home med list, asked patient if he takes omeprazole or pantoprazole but he was not sure. Called his pharmacy, [facility], he has active prescriptions for both and they have different prescribers so it is unclear which he should be on. Told the patient he needs to speak with his PCP at a follow up appointment to clarify which PPI he should be on. 1. ASPIRIN 81MG PO DAILYCM 2. CLOPIDOGREL 75MG PO DAILY The patient's discharge medication list was reviewed for discrepancies and discrepancies were resolved. The patient was counseled on the following discharge medications and changes in medications for homegoing were reviewed. The Reason for Use, instructions for use, and potential side effects were reviewed for all new medications. The patient's questions regarding all of their medications were answered. The patient was able to verbally demonstrate an understanding of their discharge medications. Medications at Discharge Home Medications timolol maleate 0.5 % eye gel forming solution (Timoptic-XE) 1 drp Q eye health 07/28/16 pantoprazole 40 mg tablet,delayed release 40 mg PO DAILY reflux 06/13/17 nitroglycerin 0.4 mg sublingual tablet 0.4 mg sublingual Q5M PRN Chest Pain 03/05/18 cyanocobalamin (vitamin B-12) 1,000 mcg tablet 1,000 mcg sublingual DAILY vit mckeon 06/24/18 tamsulosin 0.4 mg capsule (Flomax) 0.4 mg PO QHS prostate 06/24/18 cholecalciferol (vitamin D3) 50 mcg (2,000 unit) capsule 2,000 unit PO DAILY vitamin 03/20/19 furosemide 20 mg tablet 20 mg PO DAILY diuretic 03/20/19 oxycodone-acetaminophen 10 mg-325 mg tablet 10 mg PO BID PRN Pain Score 1-05/0303/20/19 amlodipine 10 mg tablet 10 mg PO DAILY high blood pressure 06/30/23 dorzolamide 2 % eye drops 1 drp ophthalmic (eye) TID glaucoma 06/30/23 potassium chloride 20 mEq tablet,extended release (K-Tab) 20 meq PO DAILY potassium level 06/30/23 glucosamine sulfate-methylsulfonylmethane 500 mg-500 mg tablet 2 tab PO DAILY joint health 07/14/23 isosorbide mononitrate 60 mg tablet,extended release 24 hr 60 mg PO DAILY 07/14/23 metoprolol succinate 100 mg tablet,extended release 24 hr 150 mg PO DAILY 07/14/23 vitamin B complex 1 cap PO DAILY vitamin 07/14/23 benazepril 20 mg tablet 20 mg PO BID 11/07/23 brimonidine 0.2 %-timolol 0.5 % eye drops 1 drp ophthalmic (eye) BID 11/07/23 latanoprostene bunod 0.024 % eye drops (Vyzulta) 1 drp ophthalmic (eye) DAILY 11/07/23 omeprazole 40 mg capsule,delayed release 40 mg PO DAILY GERD 11/07/23 aspirin 81 mg chewable tablet 81 mg PO DAILYCM 90 days #90 tabs 11/09/23 atorvastatin 40 mg tablet 40 mg PO QHS 90 days #90 tabs 11/09/23 clopidogrel 75 mg tablet 75 mg PO DAILY 90 days #90 tabs 11/09/23
[2023-11-09 14:40] VITALS: BP 133/69; PULSE 68; RESP 18; TEMP 36.1; O2SAT 95
--- NOTE | 2023-11-10 10:30 | CL.I_ITS ---
Patient Name: TRI FRANK Study Date: 11/08/2023 Performing: Marilu Decker MD Ht: 64 inches 162.56 cm : 1945 Wt: 181.2 lbs 82.1 kg Age: 78 Gender: male BSA: 1.87 PROCEDURE(S) PERFORMED IC12-(72161/C9600)JUSTIN W/WO PTCA, SINGLE CORONARY ARTERY CLINICAL PROFILE AND CO-MORBIDITIES Indications: Suspected CAD Heart Failure: None Stress/Imaging Stress/Image Study Performed: No CAD Presentations: Unstable angina. CONCLUSIONS Successful PTCA/JUSTIN Mid LAD using [place] 2.75x15 mm, post-dilated using 3.0 mm balloon RECOMMENDATIONS ASA Indefinitley Plavix for at least 12 months DESCRIPTION OF PROCEDURE The patient arrived to the procedure lab. The risks and benefits of the procedure as well as a full description of our services here and current unavailability of surgical backup were fully explained to the patient and/or their significant other prior to the catheterization. The Timeout was completed, verifying the correct patient and procedure. The patient's procedural site was prepped and draped in the usual fashion. Local anesthetic was given subcutaneously to right radial region with Lidocaine 2% Using a modified Seldinger technique,arterial access was obtained via the right radial artery, a 6Fr sheath was inserted. Right Coronary Artery selective angiography was then performed in multiple views using a 5 Fr. 4.0 [place] catheter. Left Coronary Artery selective angiography was performed in multiple views using a 5 Fr. 4.0 [place] catheter. Left Ventriculography was performed in DUMONT projection using a 5 Fr. Pig[place] catheter. LV to AO pullback pressures were then recorded.The images were reviewed and options discussed. A decision was then made to proceed with an Intervention, IVUS or other adjunct procedure. xb3 Guide catheter was inserted and engaged into the LCA. runthrough Guide wire was advanced to the LAD. Angiogram performed pre balloon dilatation. emerge 2.5 x 12 Balloon catheter was advanced across lesion in the LAD, mid. 2.75 x 15 Drug Eluting stent was advanced across the lesion in the LAD, mid. Angiogram performed post stent deployment. nc emerge 3.00 x 12 Balloon catheter was inserted post stent. Angiogram performed post balloon dilatation. The arterial sheath was pulled and a TR Band was applied for hemostasis INTERVENTION INFORMATION LESION SITE: LAD (Mid) Lesion Complexity: Non-High/Non-C, lesion length: 13 mm Pre Stenosis: 80 % Pre intervention FRANCA flow: 3 PROCEDURE: Drug Eluting Stent with pre and post dilatation Post Stenosis: 0 % Post intervention FRANCA flow: 3 Lesion Devices: Cordis 6 Fr XB3.0 100cm Guide Catheter Terumo .014 180cm Runthrough Extra Floppy straight Herbert Sci NC EMERGE MR 3.00x12 BALLOON Herbert Sci EMERGE MR 2.50x12 BALLOON Medtronic 2.75 x 15 RITU FRONTIER JUSTIN COMPLICATIONS No Complications PROCEDURE MEDICATIONS Versed 1 mg IV Fentanyl 50 mcg IV Versed 1 mg IV Fentanyl 50 mcg IV Versed 1 mg IV Oxygen: 2 L/min via nasal cannula Brilinta 180 mg PO @ 11/08/2023 12:31:08 Heparin 6000 unit(s) IV 11/08/2023 12:15:54 Nitro 200 mcg IC 11/08/2023 12:33:40 Metoprolol 10 mg iv 11/08/2023 12:33:59 Nitro 200 mcg IC 11/08/2023 12:36:35 Zofran 4 mg IV 11/08/2023 12:33:49 SUMMARY OF HEMODYNAMIC DATA Time AIR REST ECG 11:05:48 AO 141/83 (109) SA 11:43:43 LV 152/13, 34 11:54:22 LV 147/10, 12 11:54:31 LV 160/12, 23 11:55:09 LV 165/13, 18 11:55:18 LVp 161/13, 17 11:55:22 AOp 161/69 (108) 11:55:29 AO 186/88 (130) 12:30:40 Signed By Marilu Decker MD On 11/10/2023 10:29:55 Marilu Decker MD
== END 2023-11-09 17:04 | disposition home or self-care (01) | DRG 322 ==
LOC: ED 23:04 → PCU 23:44
PROVIDERS: Internal Medicine Cardiovascular Disease; Physician Assistant; Admitting Provider Family Medicine; Emergency Provider Emergency Medicine; PCP Nurse Practitioner Primary Care; Visit Provider Hospitalist
DX: I21.4 Non-ST elevation (NSTEMI) myocardial infarction (principal); N13.8 Other obstructive and reflux uropathy; J44.9 Chronic obstructive pulmonary disease, unspecified; I25.110 Atherosclerotic heart disease of native coronary artery with unstable angina pectoris; I73.9 Peripheral vascular disease, unspecified; I10 Essential (primary) hypertension; E78.5 Hyperlipidemia, unspecified; K21.9 Gastro-esophageal reflux disease without esophagitis; I25.2 Old myocardial infarction; E66.9 Obesity, unspecified; Z68.31 Body mass index [BMI] 31.0-31.9, adult; N40.1 Benign prostatic hyperplasia with lower urinary tract symptoms; H40.9 Unspecified glaucoma; Z79.82 Long term (current) use of aspirin; Z79.02 Long term (current) use of antithrombotics/antiplatelets; Z79.899 Other long term (current) drug therapy; Z87.891 Personal history of nicotine dependence
CPT/HCPCS: 36415; 71046; 80048; 80053; 84484; 85025; 85027; 85347; 92928; 93005; 93458; 99152; 99153; 99285; J7030; Q9967; A4216; C1725; C1769; C1874; C1887; C1894; C9600; J2405

== ENCOUNTER → 2024-01-12 | Outpatient (CLI) | payer MEDICARE, SELFPAY ==
--- NOTE | 2024-01-12 13:16 | CT_ITS ---
STUDY: LOW DOSE CT LUNG CANCER SCREENING REASON FOR EXAM: Male, 78 years old. SCREENING -- -- Please compare to lung screen from 01/10/23. Patient smoked 1 pack per day for 50 years. RADIATION DOSAGE (If Supplied By Facility): CTDIvol = ( 3.18 ) mGy, DLP = ( 110.00 ) mGycm TECHNIQUE: No contrast was administered. Low dose technique was utilized (average mAS-38 and kVp 120). 1.25 mm axial source images with a slice interval of 1.25-mm were reconstructed in lung windows. 2.5 mm axial source images with a slice interval of 2.5-mm were reconstructed in lung windows. 5.0 mm axial source images with a slice interval of 5.0-mm were reconstructed in soft tissue windows. COMPARISON: Comparison is made with prior study dated January 10, 2023. NODULES: No suspicious nodules are seen. Stable chronic interstitial changes in the lung bases. Emphysema: Mild degree of emphysematous changes. Endobronchial lesion: None Aorta: Atherosclerotic calcific plaques of the aortic arch. CORONARY ARTERIES: Coronary artery calcification is seen. Heart: Unremarkable Pulmonary artery: Unremarkable Mediastinal nodes: Small mediastinal lymph nodes. Other chest and abdominal findings: CT/Low Dose CT Lung Screening IMPRESSION: Lung-RADS category 2 - Continue annual screening with LDCT in 12 months. IMPORTANT NOTES FOR USE: ACR Lung-RADS Version 1.1 Assessment Categories Release Date: 2018 Category: Coded 0-4 bases on nodule(s) with highest degree of suspicion. Negative screen is defined as categories 1 and 2; a positive screen is defined as categories 3 and 4. Category 3 and 4A nodules that are unchanged on interval CT should be coded as category 2, and individuals returned to screening in 12 months. Category 4X: Category 3 or 4 nodules with additional imaging findings that increase the suspicion of lung cancer, such as spiculation, GGN that doubles in size in 1 year, enlarged lymph notes, etc. Category Modifiers: S (significant finding unrelated to lung cancer) Electronically Signed: Anthony Beyer MD at 15:09 EDT ,
== END | disposition home or self-care (01) ==
PROVIDERS: PCP Nurse Practitioner Adult Health; Referring Provider Internal Medicine Pulmonary Disease; Visit Provider Internal Medicine Pulmonary Disease
DX: Z12.2 Encounter for screening for malignant neoplasm of respiratory organs (principal); Z87.891 Personal history of nicotine dependence
CPT/HCPCS: 71271

== ENCOUNTER 2024-05-22 12:29 | Emergency (ER) | payer MEDICARE, SELFPAY ==
[2024-05-22 12:35] VITALS: BP 153/67; PULSE 74; RESP 18; TEMP 36.6; O2SAT 97
[2024-05-22 14:24] LABS: Mucous, Urine 0 SEEN /hpf (<or=2+)
[2024-05-22 14:26] LABS: Color, Urine Yellow (Yellow); Glucose, Dipstick Normal (Normal); Ketone-Dipstick Negative (Negative); Leukocyte Esterase-Dipstick 25 /ul (Negative); Nitrite-Dipstick Negative (Negative); Occult Blood-Urine 250 /ul (Negative); Protein-Dipstick 30 mg/dl (Negative); Urine Bilirubin Dipstick Negative (Negative); Urine Clarity Cloudy (Clear); Urine Urobilinogen Normal (Normal)
[2024-05-22 14:36] LABS: Red Blood Cells-Urine > 100 SEEN /hpf (0-5)
[2024-05-22 14:37] LABS: Bacteria RARE /hpf (None Seen); Squamous Epithelial Cells - UA 0-5 SEEN /hpf (0-5); White Blood Cells 0-5 SEEN /hpf (0-5)
[2024-05-22 14:41] VITALS: BP 142/78; PULSE 78; RESP 16; TEMP 36.6; O2SAT 98; BMI 29.6
--- NOTE | 2024-05-22 14:50 | CT_ITS ---
STUDY: CT ABDOMEN AND PELVIS WITH CONTRAST REASON FOR EXAM: Male, 79 years old. Hematuria. Blood in the stool. RADIATION DOSAGE (If Supplied By Facility): CTDIvol = ( 16.15 ) mGy, DLP = ( 965.9 ) mGycm TECHNIQUE: Transaxial images were obtained from the dome of the diaphragm to the symphysis pubis without oral contrast. IV 100mL Isovue-370 was administered. Sagittal and coronal images were reconstructed. Individualized dose optimization techniques were used for this CT. COMPARISON: Comparison is made with prior study dated June 24, 2018. FINDINGS: Mild increased linear markings at the lung bases suggestive of linear scarring. Coronary artery calcification. Normal liver. Normal gallbladder and extrahepatic biliary system. Normal spleen. There is diffuse atrophy of the pancreas. Normal bilateral adrenal glands. Right renal cysts. The largest cyst measures 2.5 cm. 3 cm cyst in the lateral aspect of the left kidney. Mild to moderate degree of left hydronephrosis and left hydroureter down to the left ureterovesical junction.. Normal visualized stomach. Normal small intestine. Normal colon. The appendix is visualized and appears normal. There is diffuse atherosclerotic calcification of the abdominal aorta, without a demonstrated aneurysm. Normal inferior vena cava. Normal retroperitoneum. Mildly distended urinary bladder. There is evidence of a bladder wall thickening at the base of the bladder more prominent on the left side. There is enlargement of the prostate gland. The prostate measures 3.9 cm x 4.6 cm. This causes indentation of the bladder base. Metallic densities seen within the prostate most likely secondary to prior radiation pellets. Normal abdominal wall. There are diffuse degenerative changes of the visualized lumbar spine. Prior vertebroplasty of the T11 vertebrae with a loss of height. CT/Abdomen/Pelvis W IV Cont ONLY IMPRESSION: Stable bilateral renal cysts. Moderate degree of a left hydronephrosis and hydroureter down to the ureterovesical junction. Prosthetic enlargement with indentation of the bladder base and thickening of the bladder base more prominent on the left side. Electronically Signed: Anthony Beyer MD at 15:48 EDT ,
--- NOTE | 2024-05-22 14:50 | ED.VIS.GI ---
HPI HPI - GI History of Present Illness Chief Complaint: GI Bleed Informant: patient Narrative Narrative: Presents for concerns for blood in the urine x 2 today. No dysuria no back pain. He is on aspirin and Plavix for history of coronary stent placed this past October. He also reports he had black stool this morning. Denies abdominal pain. Denies Pepto-Bismol use or eating red meats or licorice. Unclear if he takes iron. Colonoscopy years ago. Remote tobacco. History of prostate cancer currently in treatment. Prior similar symptoms: No PFSH PFSH Medical History Osteoarthritis Panic attack MARIE (dyspnea on exertion) MVP (mitral valve prolapse) Left carotid bruit Ganglion cyst Edema of both lower extremities CPAP (continuous positive airway pressure) dependence Chronic pain Cataract Bleeding nevus Back pain Aortic valve disease COVID-19 NSTEMI (non-ST elevated myocardial infarction) PAD (peripheral artery disease) Hyperlipidemia Glaucoma Near syncope Hyperglycemia Tobacco user Gastroesophageal reflux disease COPD (chronic obstructive pulmonary disease) Hx pulmonary embolism HTN (hypertension) Prostate cancer Home Medications ?Medication ?Instructions ?Recorded ?Last Taken ?Type timolol maleate 0.5 % eye gel 1 drp [facility] eye health 07/28/16 01/10/20 History forming solution (Timoptic-XE) pantoprazole 40 mg tablet,delayed 40 mg PO DAILY reflux 06/13/17 01/11/20 History release nitroglycerin 0.4 mg sublingual 0.4 mg sublingual Q5M PRN Chest 03/05/18 01/11/20 History tablet Pain cyanocobalamin (vitamin B-12) 1,000 mcg sublingual DAILY vitamin 06/24/18 01/11/20 History 1,000 mcg tablet tamsulosin 0.4 mg capsule (Flomax) 0.4 mg PO QHS prostate 06/24/18 01/10/20 History cholecalciferol (vitamin D3) 50 2,000 unit PO DAILY vitamin 03/20/19 01/11/20 History mcg (2,000 unit) capsule furosemide 20 mg tablet 20 mg PO DAILY diuretic 03/20/19 01/11/20 History oxycodone-acetaminophen 10 mg-325 10 mg PO BID PRN Pain Score 1-05/0303/20/19 01/08/20 History mg tablet amlodipine 10 mg tablet 10 mg PO DAILY high blood pressure 06/30/23 Unknown History dorzolamide 2 % eye drops 1 drp ophthalmic (eye) TID glaucoma 06/30/23 Unknown History potassium chloride 20 mEq 20 meq PO DAILY potassium level 06/30/23 Unknown History tablet,extended release (K-Tab) glucosamine 2 tab PO DAILY joint health 07/14/23 Unknown History sulfate-methylsulfonylmethane 500 mg-500 mg tablet isosorbide mononitrate 60 mg 60 mg PO DAILY 07/14/23 Unknown History tablet,extended release 24 hr metoprolol succinate 100 mg 150 mg PO DAILY 07/14/23 Unknown History tablet,extended release 24 hr vitamin B complex 1 cap PO DAILY vitamin 07/14/23 Unknown History benazepril 20 mg tablet 20 mg PO BID 11/07/23 Unknown History brimonidine 0.2 %-timolol 0.5 % 1 drp ophthalmic (eye) BID 11/07/23 Unknown History eye drops latanoprostene bunod 0.024 % eye 1 drp ophthalmic (eye) DAILY 11/07/23 Unknown History drops (Vyzulta) omeprazole 40 mg capsule,delayed 40 mg PO DAILY GERD 11/07/23 Unknown History release aspirin 81 mg chewable tablet 81 mg PO DAILYCM 90 days #90 tabs 11/09/23 Unknown Rx atorvastatin 40 mg tablet 40 mg PO QHS 90 days #90 tabs 11/09/23 Unknown Rx clopidogrel 75 mg tablet 75 mg PO DAILY 90 days #90 tabs 11/09/23 Unknown Rx Allergy/AdvReac Type Severity Reaction Status Date / Time Penicillins Allergy Unknown Verified 05/22/24 12:35 Sulfa (Sulfonamide Allergy Unknown Verified 05/22/24 12:35 Antibiotics) carvedilol AdvReac Severe Respiratory Verified 05/22/24 12:35 distress acetaminophen (From Vicodin) AdvReac Intermediate Other Verified 05/22/24 12:35 hydralazine AdvReac Intermediate Dizziness Verified 05/22/24 12:35 hydrocodone (From Vicodin) AdvReac Intermediate Other Verified 05/22/24 12:35 morphine AdvReac Intermediate Shortness Verified 05/22/24 12:35 of breath lorazepam AdvReac Other Verified 05/22/24 12:35 Family History Mother COPD (chronic obstructive pulmonary disease) Father Cancer Myocardial infarction Surgical History Hx of cardiac catheterization (~11/08/23) Stented coronary artery (~11/08/23) Hx of eye surgery Hx of tonsillectomy Social History household members: none housing: apartment number of children: 1 current occupational status: retired Smoking Status: Former smoker alcohol intake: never substance use type: does not use caffeine: Yes (all day) Type: coffee ROS ROS ED Constitutional Constitutional ED: Denies chills, fever(s) or sweats Eyes Eyes: Denies change in vision ENT ENT ED: Denies dysphagia or sore throat Cardiovascular Cardiovascular: Denies chest pain, leg edema, palpitations or racing heartbeat Respiratory/Chest Respiratory/Chest: Denies cough, dyspnea or dyspnea on exertion Gastrointestinal Gastrointestinal: Reports other Details: Black stool ; Denies abdominal pain, diarrhea, nausea or vomiting Genitourinary Genitourinary ED: Reports hematuria; Denies dysuria or urinary frequency Musculoskeletal Musculoskeletal: Denies back pain, extremity pain or neck pain Integumentary Denies rash or wounds Neurologic Neurologic: Denies headache(s), paresthesias or weakness EXAM Physical Exam Const Vital Signs: 05/22/24 12:35 05/22/24 14:41 05/22/24 16:02 Temperature 98 F 97.8 F 97.8 F Temperature Source Oral Temporal Temporal Pulse Rate 74 78 64 Respiratory Rate 18 16 18 Blood Pressure 153/67 H 142/78 H 137/79 H Blood Pressure Mean 95 99 98 Pulse Ox 97 98 76 Oxygen Delivery Method Room Air Room Air Room Air 05/22/24 16:44 Temperature 97.6 F L Temperature Source Pulse Rate 78 Respiratory Rate 16 Blood Pressure 139/61 H Blood Pressure Mean 87 Pulse Ox 99 Oxygen Delivery Method Positive well nourished and well developed General Appearance ED: well developed and NAD HEENT Reports moist mucous membranes normocephalic and atraumatic Eyes EOMs intact bilaterally and conjunctivae normal General Eye ED: Yes normal appearance of both eyes Neck no lymphadenopathy and supple General: Negative for tenderness Chest Wall Chest: Negative for tenderness Resp normal respiratory effort and normal air movement Effort and Inspection: symmetric chest movement; Negative for respiratory distress Cardio regular rate, regular rhythm and no murmurs Peripheral Pulses: pulses 2+ throughout GI normal to inspection, nondistended, normoactive bowel sounds and non-tender GI Narrative: Rectal no external hemorrhoids, digital rectal exam specks of brown stools, guaiac pending. Palpation: Negative for guarding or rebound tenderness present Back/Spine no CVA tenderness and no thoracic nor lumbar tenderness Extremity normal to inspection General Extremety ED: Negative for edema or tenderness General Extremity: Negative for edema Neuro oriented x3 and no sensory deficits noted Sensorium / Orientation: awake and alert Skin no rashes or lesions noted and no wounds MDM MDM MDM Narrative Medical decision making narrative: Interventions / MDM: Differential diagnosis: Hematuria, masses Diagnosis considered but do not suspect: Rectal bleed however Hemoccult negative My EKG interpretation: N/A Imaging independently reviewed and interpreted by myself: CT abdomen pelvis IV contrast enlarged prostate, thickening bladder 1 in the left side with moderate hydro and ureter no renal stones. Also read by radiology. External documents reviewed: N/A Test considered but not ordered:N/A ED course: Protocol triage obtained urine cloudy and yellow with a occult blood and leukocytes with greater than 100 RBCs. He has no abdominal pain. Hemoccult pending. Hematuria remote tobacco, will check labs and CT scan to rule out any masses. Hemoglobin 14 was [address] scan thickened bladder with left hydroureter and hydronephrosis. He follows urologist Dr. Slaguero his history of prostate cancer. I discussed with his urologist findings on imaging, he is nontoxic. Urine culture was sent. He will follow-up in the office for outpatient evaluation. Discussed with patient if he is unable to urinate to return to ED for reevaluation. All questions were answered. Re-evaluation: stable Disposition discussed with patient/family/significant other: Patient Case discussed with consulting clinician: Urology This note was generated with [employer] dictation software. It may contain incorrect words, spelling, and punctuation that were not noted in checking the note before signing. Lab Data Attestation: I reviewed the patient's lab results. Labs: Laboratory Results - last 24 hr 05/22/24 05/22/24 14:20 14:59 WBC 10.0 RBC 4.73 Hgb 14.7 Hct 43.5 MCV 92.0 MCH 31.1 MCHC 33.8 RDW Std Deviation 43.3 RDW Coeff of Suki 12.8 Plt Count 220 MPV 11.2 Immature Gran % (Auto) 0.400 Neut % (Auto) 66.3 Lymph % (Auto) 22.4 Poinsett % (Auto) 8.5 Eos % (Auto) 1.9 Baso % (Auto) 0.5 Absolute Neuts (auto) 6.6 Absolute Lymphs (auto) 2.23 Nucleated RBC % 0 Sodium 140 Potassium 3.7 Chloride 107 Carbon Dioxide 28.0 Anion Gap 5 BUN 9 Creatinine 0.79 Estim Creat Clear Calc 74.54 Est GFR (MDRD) Af Amer 121 Est GFR (MDRD) Non-Af 100 BUN/Creatinine Ratio 11.4 Glucose 86 Calcium 9.0 Urine Color Yellow Urine Clarity Cloudy Urine pH 7.0 Ur Specific Issue 1.010 Urine Protein 30 H Urine Glucose (UA) Normal Urine Ketones Negative Urine Occult Blood 250 H Urine Nitrite Negative Urine Bilirubin Negative Urine Urobilinogen Normal Ur Leukocyte Esterase 25 H Urine RBC > 100 SEEN Urine WBC 0-5 SEEN Ur Squamous Epith Cells 0-5 SEEN Urine Bacteria RARE Urine Mucus 0 SEEN Radiography Diagnostic Testing: Clinical Impression(s) from Imaging Studies Abdomen/Pelvis CT 05/22/24 14:50 IMPRESSION: Stable bilateral renal cysts. Moderate degree of a left hydronephrosis and hydroureter down to the ureterovesical junction. Prosthetic enlargement with indentation of the bladder base and thickening of the bladder base more prominent on the left side. Electronically Signed: Anthony Beyer MD at 15:48 EDT , Discharge Plan Triage Chief Complaint: GI Bleed Other Complaint: Complaint ED Provider: Sheldon De La Rosa Dx/Rx/DC Orders Clinical Impression: Hematuria, Bladder wall thickening, Hydroureter on left Instructions: ED Hematuria Prescriptions: No Action isosorbide mononitrate 60 mg tablet extended release 24 hr 60 mg PO DAILY Patient Comments: TAKE 1 TABLET BY MOUTH EVERY DAY IN THE MORNING metoprolol succinate 100 mg tablet extended release 24 hr 150 mg PO DAILY Rx Instructions: 100 mg QAM, 50 mg QHS vitamin B complex Capsule 1 cap PO DAILY Patient Comments: SUPPLEMENT timolol maleate [Timoptic-XE] 1 DROP gel forming solution 1 drp Each Eye QHS pantoprazole 40 MG tablet 40 mg PO DAILY nitroglycerin 0.4 MG tablet 0.4 mg sublingual Q5M PRN (Reason: Chest Pain) cyanocobalamin (vitamin B-12) 1,000 MCG tablet 1,000 mcg sublingual DAILY Patient Comments: TAKE ONE TABLET BY MOUTH EVERY DAY tamsulosin [Flomax] 0.4 MG capsule 0.4 mg PO QHS furosemide 20 MG tablet 20 mg PO DAILY cholecalciferol (vitamin D3) 2,000 UNIT capsule 2,000 unit PO DAILY oxycodone-acetaminophen 1 EACH tablet 10 mg PO BID PRN (Reason: Pain Score 1-10/10) Patient Comments: TAKE 1 TABLET BY MOUTH EVERY 12 HOURS glucosamine sulfate-msm 500-500 mg tablet 2 tab PO DAILY dorzolamide 2 % drops 1 drp ophthalmic (eye) TID Patient Comments: INSTILL 1 DROP INTO BOTH EYES 3 TIMES A DAY amlodipine 10 mg tablet 10 mg PO DAILY Patient Comments: TAKE 1 TABLET BY MOUTH EVERY DAY potassium chloride [K-Tab] 20 mEq tablet extended release 20 meq PO DAILY Rx Instructions: orally daily; omeprazole 40 mg capsule,delayed release(DR/EC) 40 mg PO DAILY benazepril 20 mg tablet 20 mg PO BID brimonidine-timolol 0.2-0.5 % drops 1 drp ophthalmic (eye) BID Vyzulta 0.024 % drops 1 drp ophthalmic (eye) DAILY clopidogrel 75 mg Tablet 75 mg PO DAILY 90 Days Qty: 90 3RF aspirin 81 mg Tablet,Chewable 81 mg PO DAILYCM 90 Days Qty: 90 3RF atorvastatin 40 mg Tablet 40 mg PO QHS 90 Days Qty: 90 3RF Primary Care Provider: ENRICO BELLAMY Referrals: Delgado Salguero MD [Med Staff - Active Staff] - 2 Days ENRICO BELLAMY CRNP [Primary Care Provider] - Activity Restrictions/Additional Instructions: Urine with blood microscopic. No gross blood. Hemoglobin 14.7. CT scan large prostate however thickening bladder wall more on the left with left hydroureter. Discussed with Dr. Salguero in ED. Follow-up with him in the office this coming or Tuesday. Call for an appointment. If you have difficulty urinating and unable to urinate with increasing pain, return to the ED for reevaluation. Print Language: Turkish Disposition Disposition: Home, Self Care Discharge Date/Time: 05/22/24 16:44
[2024-05-22 15:13] LABS: Absolute Lymphocyte Count 2.23 X10^3/uL (0.83-4.51); Absolute Neutrophil Count 6.6 X10^3/uL (2.0-7.7); Basophil# 0.05 X10^3/uL; Basophil% 0.5 % (0-1); Eosinophil# 0.19 X10^3/uL; Eosinophils% 1.9 % (0-5); Hematocrit 43.5 % (40-54); Hemoglobin 14.7 g/dL (13.0-16.5); Lymphocyte # 2.23 X10^3/ul (0.83-4.51); Lymphocyte % 22.4 % (19-41); Mean Corp Hgb Conc 33.8 g/dL (32-36); Mean Corpuscular Hgb 31.1 pg (27.0-32.0); Mean Platelet Vol. 11.2 fl (6.2-12.0); Monocyte# 0.85 X10^3/uL; Monocyte% 8.5 % (0-10); NRBC Flagged by Analyzer 0 % (0-5); Neutrophil % 66.3 % (47-70); Platelet Count 220 K/mm3 (150-450); RBC Distribution Width CV 12.8 % (11.6-14.6); RBC Distribution Width SD 43.3 fl (35.1-43.9); Red Blood Count 4.73 M/mm3 (4.6-6.2)
[2024-05-22 15:26] LABS: Anion Gap 5 (5-15); BUN 9 mg/dL (7-18); BUN/Creat Ratio 11.4 RATIO (10-20); Chloride 107 mmol/L (98-107); Creatinine, Serum 0.79 mg/dL (0.70-1.30); EST Glomerular Filtration Rate 100 mL/min (>60); Est Glom Filt Rate - Afr Amer 121 mL/min (>60); Estimated Creatinine Clearance 74.54 ml/min; Glucose 86 mg/dL (74-106); Potassium 3.7 mmol/L (3.5-5.1); Sodium Level 140 mmol/L (136-145)
[2024-05-22 16:02] VITALS: BP 137/79; PULSE 64; RESP 18; TEMP 36.6; O2SAT 76
[2024-05-22 16:44] VITALS: BP 139/61; PULSE 78; RESP 16; TEMP 36.4; O2SAT 99
== END 2024-05-22 16:44 | disposition home or self-care (01) ==
PROVIDERS: Emergency Provider Emergency Medicine; PCP Nurse Practitioner Adult Health; Visit Provider Emergency Medicine
DX: R31.9 Hematuria, unspecified (principal); J44.9 Chronic obstructive pulmonary disease, unspecified; Z79.82 Long term (current) use of aspirin; N32.89 Other specified disorders of bladder; N13.30 Unspecified hydronephrosis; I10 Essential (primary) hypertension; E78.5 Hyperlipidemia, unspecified; Z79.02 Long term (current) use of antithrombotics/antiplatelets; Z95.5 Presence of coronary angioplasty implant and graft; N13.4 Hydroureter; Z87.891 Personal history of nicotine dependence; Z85.46 Personal history of malignant neoplasm of prostate; Z99.89 Dependence on other enabling machines and devices; Z86.16 Personal history of COVID-19; Z86.711 Personal history of pulmonary embolism; I25.2 Old myocardial infarction
CPT/HCPCS: 74177; 80048; 81001; 82274; 85025; 87077; 87086; 87088; 87186; 99284; Q9967

== ENCOUNTER → 2024-05-28 | Outpatient (CLI) | payer MEDICARE, SELFPAY ==
--- NOTE | 2024-05-28 | CYSPIN_PTH ---
PATHOLOGY RESULTS PATIENT: TRI FRANK Jr. LOC: [facility] U#:[id number] AGE/SX: 79/M ROOM: RE05/28/[address]: Dr. Delgado Salguero MD : 1945 BED: DIS: 05/28/2024 SPEC #: [id number] RECD: 05/29/24 09:43 STATUS: VIN JOAQUÍN #: [id number] RANDALL: 05/28/24 00:[address]: Delgado Salguero DEPT: CYTOLOGY RECD BY: Clement Colón ENTERED: 05/29/24 09:43 SP TYPE: CYSPIN FL OTHR DR: RAQUEL PACE Tissues: Urine Procedures: Pap Stain (control) Special Stain Group II Cytospin Fluid HEADER OPERATION: Not noted PRE-OP DIAGNOSIS: Hydroureter TISSUE SUBMITTED: Urine for cytology DIAGNOSIS CYTOLOGY Urine for cytology (cytospin): Negative for high grade urothelial carcinoma. See comment. 05/29/2024 COMMENT The Caitlin System for urine cytology diagnostic categorization was used in the evaluation of this case. CYTOLOGY STUDY Slides are reviewed. CYTOLOGY GROSS Received is 40 ml of gold-cloudy fluid labeled with the patient's name and and designated per the requisition as urine. Submitted for cytology preparation. Mr 05/29/2024 TC:5 CPT: 18855
[2024-05-28 16:05] LABS: Cytology, Body Fluid / CSF SEE PATHOLOGY REPORT
== END | disposition home or self-care (01) ==
LOC: LABSPEC 15:51
PROVIDERS: PCP Nurse Practitioner Adult Health; Referring Provider Urology; Visit Provider Urology
DX: N13.4 Hydroureter (principal)
CPT/HCPCS: 88108; 88313

== ENCOUNTER 2024-06-02 20:43 | Emergency (ER) | payer MEDICARE, SELFPAY ==
[2024-06-02 20:44] VITALS: BP 154/65; PULSE 69; RESP 18; TEMP 36.1; O2SAT 96; BMI 29.7
[2024-06-02 21:12] LABS: Bacteria 0 SEEN /hpf (None Seen); Mucous, Urine 0 SEEN /hpf (<or=2+)
[2024-06-02 21:16] LABS: Absolute Lymphocyte Count 2.78 X10^3/uL (0.83-4.51); Absolute Neutrophil Count 6.3 X10^3/uL (2.0-7.7); Basophil# 0.05 X10^3/uL; Basophil% 0.5 % (0-1); Color, Urine Red (Yellow); Eosinophil# 0.26 X10^3/uL; Eosinophils% 2.5 % (0-5); Glucose, Dipstick Normal (Normal); Hematocrit 41.8 % (40-54); Hemoglobin 13.9 g/dL (13.0-16.5); Ketone-Dipstick Negative (Negative); Leukocyte Esterase-Dipstick 25 /ul (Negative); Lymphocyte # 2.78 X10^3/ul (0.83-4.51); Mean Corp Hgb Conc 33.3 g/dL (32-36); Mean Corpuscular Hgb 31.2 pg (27.0-32.0); Mean Corpuscular Volume 93.9 fL (80-94); Mean Platelet Vol. 11.3 fl (6.2-12.0); Monocyte# 0.92 X10^3/uL; Monocyte% 8.9 % (0-10); NRBC Flagged by Analyzer 0 % (0-5); Neutrophil # 6.27 X10^3/uL (2.7-7.7); Neutrophil % 60.8 % (47-70); Nitrite-Dipstick Negative (Negative); Occult Blood-Urine 250 /ul (Negative); Platelet Count 188 K/mm3 (150-450); Protein-Dipstick 100 mg/dl (Negative); RBC Distribution Width CV 12.7 % (11.6-14.6); RBC Distribution Width SD 43.8 fl (35.1-43.9); Red Blood Count 4.45 M/mm3 (4.6-6.2); Specific Gravity, Urine 1.005 (1.002-1.030); Urine Bilirubin Dipstick Negative (Negative); Urine Clarity Cloudy (Clear); Urine Urobilinogen Normal (Normal); White Blood Count 10.3 K/mm3 (4.4-11.0)
[2024-06-02 21:42] LABS: Anion Gap 3 (5-15); BUN 14 mg/dL (7-18); BUN/Creat Ratio 18.3 RATIO (10-20); Calcium,Total 8.8 mg/dL (8.5-10.1); Chloride 112 mmol/L (98-107); Creatinine, Serum 0.76 mg/dL (0.70-1.30); EST Glomerular Filtration Rate 104 mL/min (>60); Est Glom Filt Rate - Afr Amer 126 mL/min (>60); Estimated Creatinine Clearance 74.67 ml/min; Glucose 112 mg/dL (74-106); Potassium 4.1 mmol/L (3.5-5.1); Sodium Level 140 mmol/L (136-145)
[2024-06-02 21:52] LABS: Red Blood Cells-Urine > 100 SEEN /hpf (0-5); Squamous Epithelial Cells - UA 0-5 SEEN /hpf (0-5); White Blood Cells 5-10 SEEN /hpf (0-5)
[2024-06-02 22:40] VITALS: BP 140/73; PULSE 85; RESP 18; TEMP 36.8; O2SAT 99
== END 2024-06-02 22:40 | disposition home or self-care (01) ==
PROVIDERS: Emergency Provider Emergency Medicine; PCP Nurse Practitioner Adult Health; Referring Provider Emergency Medicine; Visit Provider Emergency Medicine
DX: R31.9 Hematuria, unspecified (principal); J44.9 Chronic obstructive pulmonary disease, unspecified; E78.5 Hyperlipidemia, unspecified; Z87.891 Personal history of nicotine dependence; Z79.82 Long term (current) use of aspirin; I10 Essential (primary) hypertension; Z79.02 Long term (current) use of antithrombotics/antiplatelets; Z85.46 Personal history of malignant neoplasm of prostate; I25.2 Old myocardial infarction; K21.9 Gastro-esophageal reflux disease without esophagitis; Z79.899 Other long term (current) drug therapy
CPT/HCPCS: 80048; 81001; 85025; 99285

== ENCOUNTER 2024-06-15 11:53 | Day surgery (SDC) | payer MEDICARE, SELFPAY ==
[2024-06-15] VITALS (9 sets, daily range): BP systolic 101–142; BP diastolic 42–68; PULSE 62–76; RESP 16; TEMP 36.6–36.9; O2SAT 93–100; BMI 29.0
[2024-06-15] MEDS: Lactated Ringers 1,000 ML 15 ML IV (12:35)
--- NOTE | 2024-06-15 13:02 | PRE.ANES_ITS ---
ASA Classification* ASA Classification ASA Classification: 3 Assessment & Plan Anesthesia* Anesthesia Assessment Anesthesia Assessment: Discussed sedation and/or anesthesia options, risks, benefits, and alternatives with patient/parents/legal guardian/POA. Questions invited. The patient/parents/legal guardian/POA seems to understand and agrees to proceed with anesthesia plan. Reviewed the physical assessment, medical history, allergy history and patient home medications list prior to surgery/procedure/anesthetic and documented any changes. Performed airway and anesthesia risk assessments. Anesthesia Type Anesthesia Type: General Anesthesia Focused Assessment* Temperature: 98.5 F Pulse Rate: 76 Blood Pressure: 142/68 Respiratory Rate: 16 Pulse Ox: 100 Airway Assessment Mouth opens: >3 cm Mallampati Score: II Focused Labs Anesthesia Preop lab: CBC WBC 10.3 K/mm3 (4.4-11.0) 06/02/24 21:09 RBC 4.45 M/mm3 (4.6-6.2) L 06/02/24 21:09 Hgb 13.9 g/dL (13.0-16.5) 06/02/24 21:09 Hct 41.8 % (40-54) 06/02/24 21:09 Plt Count 188 K/mm3 (150-450) 06/02/24 21:09 CHEMISTRY Potassium 4.1 mmol/L (3.5-5.1) 06/02/24 21:09 Sodium 140 mmol/L (136-145) 06/02/24 21:09 Magnesium 2.3 mg/dL (1.6-2.6) 07/01/23 05:10 Phosphorus 1.4 mg/dL (2.5-4.9) L 07/01/23 05:10 BUN 14 mg/dL (7-18) 06/02/24 21:09 Creatinine 0.76 mg/dL (0.70-1.30) 06/02/24 21:09 Glucose 112 mg/dL (74-106) H 06/02/24 21:09 TSH 0.34 uIU/mL (0.358-3.74) L 07/01/23 05:10 COAG PT 13.4 SECONDS (11.7-14.9) 01/12/20 02:36 Pre-Assessment Diagnosis/Proposed Procedure Planned Operative Procedure(s): Cysto,Biopsy,Fulg and Left Ureteroscopy Anesthesia History Anesthesia History - access services librarian: Anesthesia History - access services librarian Hx Hospitalization No 06/08/24 09:27 Any Problems With Anesthesia No 06/08/24 09:27 Cholinesterase deficiency No 06/08/24 09:27 You/Your Family Experience No 06/08/24 09:27 fever (hyperthermia) with Relationship Recent Exposure to Contagious No 06/15/24 12:27 Disease Does patient have nerve No 06/08/24 09:27 stimulator Patient instructed to have device shut off --Does patient have Pacemaker No 06/15/24 12:27 or ICD? When Was Last Pacemaker Check QUESTION #4 FULL TEXT: You/Your Family Experience fever (hyperthermia) with Anesthesia Last Oral Intake Last Oral intake: Last Oral Intake NPO since 11:00 06/15/24 12:27 Meds taken in AM with sips of water? Meds patient instructed to take am of surgery PONV PONV - access services librarian: PONV - access services librarian Female No 06/08/24 09:27 HX of Motion Sickness No 06/08/24 09:27 HX of N/V After Surgery No 06/08/24 09:27 Non-Smoker Yes 06/08/24 09:27 Duration of Surgery greater Yes 06/08/24 09:27 than 60 minutes Number of Risk Factors 2 06/08/24 09:27 PONV Score Moderate Risk 06/08/24 09:27 Height & Weight Height & Weight: Anesthesia: Height & Weight Height 5 ft 6 in 06/15/24 12:27 Weight: 81.647 kg 06/15/24 12:27 Body Mass Index (BMI) 29.0 06/15/24 12:27 Respiratory Assessment Respiratory Assessment - access services librarian: Respiratory Tract Infection Hx - access services librarian Hx Respiratory Tract Infection No 06/08/24 09:27 STOP Sleep Apnea STOP Sleep Apnea - access services librarian: STOP Sleep Apnea - access services librarian Hx Hypertension Yes 06/08/24 09:27 Hx Sleep Apnea Yes 06/08/24 09:27 CPAP Yes 06/08/24 09:27 BIPAP No 06/08/24 09:27 Do you snore loudly (louder than talking or can be heard Do you often feel tired/ fatigued/ sleepy during daytime? Has anyone observed you stop breathing during sleep? STOP Results Positive 06/08/24 09:27 QUESTION #5 FULL TEXT : Do you snore loudly (louder than talking or can be heard through closed doors)? Tobacco Use History Tobacco Use History - access services librarian: Tobacco Use History - access services librarian Tobacco Use Non-smoker 08/18/21 15:25 Smoking Status Former smoker 06/08/24 09:27 Hx Tobacco Use No 06/08/24 09:27 Years Smoking Packs Smoked per Day Smoking Cessation Date was No - quit smoking greater 06/08/24 09:27 within the last 15 years than 15 years ago Hx Smoking Cessation Date 01/11/12 06/08/24 09:27 Hx Smoking Cessation No 06/08/24 09:27 Counseling Hematologic Medial History Hematologic Hx - access services librarian: Hematologic Medical Hx - manager document Hx of Blood Transfusion No 06/08/24 09:27 Hx of Transfusion in last 3 No 06/08/24 09:27 Months Date of Last Transfusion (if within last 3 months) Ever experience any problems No 06/08/24 09:27 with transfusion(s)? Specify any problems Hx of Preganancy in last 3 N/A 06/08/24 09:27 Months Nurse Filling Out Transfusion VCHRISTIN 06/08/24 09:27 & Questions: Date: 06/08/24 06/08/24 09:27 Time: :06/08/24 09:27 Patient unable to answer at this time (ie. confused, unrespo /Reproduction History /Reproductive History - access services librarian: /Reproductive Hx- access services librarian Hx Now Gestational Age (in weeks): EDC: Hx Hx Para Hx Section SAB Active Medications Active Medications: Current Medications Generic Name Dose Route Start Last Admin Trade Name Freq PRN Reason Stop Dose Admin Lactated Ringer's 1,000 mls @ 15 mls/hr 06/15/24 12:00 06/15/24 12:35 IV 06/21/24 01:19 15 mls/hr .Q48H JOE Administration Protocol PFSH Medical History Wears dentures Wears glasses Cancer Arthritis High cholesterol Migraine headache Injury of head and neck History of IBS Gastric reflux Former smoker Sleep apnea History of stress test History of echocardiogram Hypertension Cardiology follow-up encounter History of irregular heartbeat Osteoarthritis Panic attack MARIE (dyspnea on exertion) MVP (mitral valve prolapse) Left carotid bruit Ganglion cyst Edema of both lower extremities CPAP (continuous positive airway pressure) dependence Chronic pain Cataract Bleeding nevus Back pain Aortic valve disease COVID-19 NSTEMI (non-ST elevated myocardial infarction) PAD (peripheral artery disease) Hyperlipidemia Glaucoma Near syncope Hyperglycemia Tobacco user Gastroesophageal reflux disease COPD (chronic obstructive pulmonary disease) Hx pulmonary embolism HTN (hypertension) Prostate cancer Home Medications ?Medication ?Instructions ?Recorded ?Last Taken ?Type timolol maleate 0.5 % eye gel 1 drp QHS eye health 07/28/16 01/10/20 History forming solution (Timoptic-XE) pantoprazole 40 mg tablet,delayed 40 mg PO DAILY reflux 06/13/17 06/15/24 History release nitroglycerin 0.4 mg sublingual 0.4 mg sublingual Q5M PRN Chest 03/05/18 01/11/20 History tablet Pain tamsulosin 0.4 mg capsule (Flomax) 0.4 mg PO QHS prostate 06/24/18 01/10/20 History oxycodone-acetaminophen 10 mg-325 10 mg PO BID PRN Pain Score 1-05/0303/20/19 01/08/20 History mg tablet amlodipine 10 mg tablet 10 mg PO DAILY high blood pressure 06/30/23 06/15/24 History dorzolamide 2 % eye drops 1 drp ophthalmic (eye) TID glaucoma 06/30/23 Unknown History isosorbide mononitrate 60 mg 60 mg PO DAILY 07/14/23 06/15/24 History tablet,extended release 24 hr metoprolol succinate 100 mg 150 mg PO DAILY 07/14/23 06/15/24 History tablet,extended release 24 hr benazepril 20 mg tablet 20 mg PO BID 11/07/23 Unknown History brimonidine 0.2 %-timolol 0.5 % 1 drp ophthalmic (eye) BID 11/07/23 Unknown History eye drops latanoprostene bunod 0.024 % eye 1 drp ophthalmic (eye) DAILY 11/07/23 Unknown History drops (Vyzulta) atorvastatin 40 mg tablet 40 mg PO QHS 90 days #90 tabs 11/09/23 Unknown Rx clopidogrel 75 mg tablet 75 mg PO DAILY 90 days #90 tabs 11/09/23 Unknown Rx aspirin 81 mg chewable tablet 81 mg PO DAILYCM PRN TAKES 06/08/24 06/08/24 History PERIODICALLY Allergy/AdvReac Type Severity Reaction Status Date / Time Penicillins Allergy Unknown Verified 06/15/24 12:24 Sulfa (Sulfonamide Allergy Unknown Verified 06/15/24 12:24 Antibiotics) carvedilol AdvReac Severe Respiratory Verified 06/15/24 12:24 distress hydralazine AdvReac Intermediate Dizziness Verified 06/15/24 12:24 hydrocodone (From Vicodin) AdvReac Intermediate Other Verified 06/15/24 12:24 morphine AdvReac Intermediate Shortness Verified 06/15/24 12:24 of breath lorazepam AdvReac Other Verified 06/15/24 12:24 Family History Mother COPD (chronic obstructive pulmonary disease) Father Cancer Myocardial infarction Surgical History Hx of cardiac catheterization (~11/08/23) Stented coronary artery (~11/08/23) Hx of eye surgery Hx of tonsillectomy Social History household members: none housing: apartment number of children: 1 current occupational status: retired Smoking Status: Former smoker alcohol intake: never substance use type: does not use caffeine: Yes (all day) Type: coffee Review of Systems (Anesthesia) ROS Narrative System reviewed and no additional complaints, except as documented.
--- NOTE | 2024-06-15 14:00 | CYSPIN_PTH ---
PATIENT: TRI FRANK Jr. LOC: [facility] [place] U#:[id number] AGE/SX: 79/M ROOM: RE06/15/[address]: Dr. Delgado Salguero MD : 1945 BED: DIS: 06/15/2024 SPEC #: [id number] RECD: 06/15/24 15:13 STATUS: VIN YANES #: [id number] RANDALL: 06/15/24 14:[address]: Delgado Salguero DEPT: CYTOLOGY RECD BY: Taylor Torres ENTERED: 06/18/24 11:00 SP TYPE: CYSPIN FL OTHR DR: RAQUEL PACE Tissues: Urine Procedures: Pap Stain (control) Special Stain Group II Cytospin Fluid HEADER OPERATION: Left retro pyelogram, left ureteroscopy and stent placement PRE-OP DIAGNOSIS: Gross hematuria TISSUE SUBMITTED: Urine for cytology DIAGNOSIS CYTOLOGY Urine for cytology (cytospin): Atypical urothelial cells present (Caitlin category system III). See comment. AM.mr 06/18/2024 COMMENT The Caitlin System for urine cytology diagnostic categorization was used in the evaluation of this case. CYTOLOGY STUDY Slides are reviewed. CYTOLOGY GROSS Received is 10 ml of brown cloudy fluid labeled with the patient's name and and designated per the requisition as urine. Submitted for cytology preparation. Mr 06/18/2024 TC:? CPT: 09102
[2024-06-15] MEDS: Cefazolin 2 GM in Syringe IV (14:15)
--- NOTE | 2024-06-15 14:52 | HP.PCM_ITS ---
[facility] - General General Date of Service: 06/15/24 Chief Complaint: Blood coming from the left ureteral orifice HPI Narrative TRI FRANK, is a 79 M who presents for left ureteroscopy and stent placement for blood coming from the left ureteral orifice that the source is unknown [facility] Medical History (Updated 06/15/24 @ 14:[address] Delgado Salguero MD) Wears dentures Wears glasses Cancer Arthritis High cholesterol Migraine headache Injury of head and neck History of IBS Gastric reflux Former smoker Sleep apnea History of stress test History of echocardiogram Hypertension Cardiology follow-up encounter History of irregular heartbeat Osteoarthritis Panic attack MARIE (dyspnea on exertion) MVP (mitral valve prolapse) Left carotid bruit Ganglion cyst Edema of both lower extremities CPAP (continuous positive airway pressure) dependence Chronic pain Cataract Bleeding nevus Back pain Aortic valve disease COVID-19 NSTEMI (non-ST elevated myocardial infarction) PAD (peripheral artery disease) Hyperlipidemia Glaucoma Near syncope Hyperglycemia Tobacco user Gastroesophageal reflux disease COPD (chronic obstructive pulmonary disease) Hx pulmonary embolism HTN (hypertension) Prostate cancer Home Medications ?Medication ?Instructions ?Recorded ?Last Taken ?Type timolol maleate 0.5 % eye gel 1 drp [facility] eye health 07/28/16 01/10/20 History forming solution (Timoptic-XE) pantoprazole 40 mg tablet,delayed 40 mg PO DAILY reflux 06/13/17 06/15/24 History release nitroglycerin 0.4 mg sublingual 0.4 mg sublingual Q5M PRN Chest 03/05/18 01/11/20 History tablet Pain tamsulosin 0.4 mg capsule (Flomax) 0.4 mg PO QHS prostate 06/24/18 01/10/20 History oxycodone-acetaminophen 10 mg-325 10 mg PO BID PRN Pain Score 1-05/0303/20/19 01/08/20 History mg tablet amlodipine 10 mg tablet 10 mg PO DAILY high blood pressure 06/30/23 06/15/24 History dorzolamide 2 % eye drops 1 drp ophthalmic (eye) TID glaucoma 06/30/23 Unknown History isosorbide mononitrate 60 mg 60 mg PO DAILY 07/14/23 06/15/24 History tablet,extended release 24 hr metoprolol succinate 100 mg 150 mg PO DAILY 07/14/23 06/15/24 History tablet,extended release 24 hr benazepril 20 mg tablet 20 mg PO BID 11/07/23 Unknown History brimonidine 0.2 %-timolol 0.5 % 1 drp ophthalmic (eye) BID 11/07/23 Unknown History eye drops latanoprostene bunod 0.024 % eye 1 drp ophthalmic (eye) DAILY 11/07/23 Unknown History drops (Vyzulta) atorvastatin 40 mg tablet 40 mg PO QHS 90 days #90 tabs 11/09/23 Unknown Rx cephalexin 500 mg capsule 500 mg PO TID #15 caps 06/15/24 Unknown Rx oxycodone 5 mg tablet 5 mg PO Q6H PRN pain 3 days #14 06/15/24 Unknown Rx tabs Allergy/AdvReac Type Severity Reaction Status Date / Time Penicillins Allergy Unknown Verified 06/15/24 12:24 Sulfa (Sulfonamide Allergy Unknown Verified 06/15/24 12:24 Antibiotics) carvedilol AdvReac Severe Respiratory Verified 06/15/24 12:24 distress hydralazine AdvReac Intermediate Dizziness Verified 06/15/24 12:24 hydrocodone (From Vicodin) AdvReac Intermediate Other Verified 06/15/24 12:24 morphine AdvReac Intermediate Shortness Verified 06/15/24 12:24 of breath lorazepam AdvReac Other Verified 06/15/24 12:24 Family History Mother COPD (chronic obstructive pulmonary disease) Father Cancer Myocardial infarction Surgical History Hx of cardiac catheterization (~11/08/23) Stented coronary artery (~11/08/23) Hx of eye surgery Hx of tonsillectomy Social History household members: none housing: apartment number of children: 1 current occupational status: retired Smoking Status: Former smoker alcohol intake: never substance use type: does not use caffeine: Yes (all day) Type: coffee Vital Signs Vital Signs Vital Signs: 06/15/24 12:27 06/15/24 12:27 06/15/24 13:02 Temperature 98.5 F 98.5 F Temperature Source Temporal Pulse Rate 76 76 Respiratory Rate 16 16 Respiratory Pattern Normal Blood Pressure 142/68 H 142/68 H Blood Pressure Mean 92 Blood Pressure Source Monitor Blood Pressure Position Semi-Fowlers Blood Pressure Location Right Arm Pulse Ox 100 100 Oxygen Delivery Method Room Air Weight Weight: 81.647 kg Body Mass Index (BMI) 29.0
--- NOTE | 2024-06-15 14:52 | PCM.DC ---
Discharge Instructions Diet Discharge Diet: No restrictions Activity Discharge Activity: Return to Normal Activity and May Not Drive (while taking narcotic pain medications.) Dressing / Incision Call your doctor if you observe: Fever of 101 or Higher Follow Up Care Please Follow Up With: Delgado Salguero MD When: Call [phone] for an appointment Test Results: Test results from this visit will be discussed in further detail at your follow-up appointment, if applicable. Discharge Plan Admission Primary Reason for Your Visit: left stent Attending Provider: Delgado Salguero Primary Care Provider: ENRICO BELLAMY Instructions Print Language: Luxembourgish Discharge Orders/Prescriptions Prescriptions: New cephalexin 500 mg capsule 500 mg PO TID Qty: 15 0RF oxycodone 5 mg tablet 5 mg PO Q6H PRN (Reason: pain) 3 Days Qty: 14 0RF Continued isosorbide mononitrate 60 mg tablet extended release 24 hr 60 mg PO DAILY Patient Comments: TAKE 1 TABLET BY MOUTH EVERY DAY IN THE MORNING metoprolol succinate 100 mg tablet extended release 24 hr 150 mg PO DAILY Rx Instructions: 100 mg QAM, 50 mg QHS timolol maleate [Timoptic-XE] 1 DROP gel forming solution 1 drp Each Eye QHS pantoprazole 40 MG tablet 40 mg PO DAILY nitroglycerin 0.4 MG tablet 0.4 mg sublingual Q5M PRN (Reason: Chest Pain) tamsulosin [Flomax] 0.4 MG capsule 0.4 mg PO QHS oxycodone-acetaminophen 1 EACH tablet 10 mg PO BID PRN (Reason: Pain Score 1-10/10) Patient Comments: TAKE 1 TABLET BY MOUTH EVERY 12 HOURS dorzolamide 2 % drops 1 drp ophthalmic (eye) TID Patient Comments: INSTILL 1 DROP INTO BOTH EYES 3 TIMES A DAY amlodipine 10 mg tablet 10 mg PO DAILY Patient Comments: TAKE 1 TABLET BY MOUTH EVERY DAY benazepril 20 mg tablet 20 mg PO BID brimonidine-timolol 0.2-0.5 % drops 1 drp ophthalmic (eye) BID Vyzulta 0.024 % drops 1 drp ophthalmic (eye) DAILY atorvastatin 40 mg Tablet 40 mg PO QHS 90 Days Qty: 90 3RF Discontinued clopidogrel 75 mg Tablet 75 mg PO DAILY 90 Days Qty: 90 3RF aspirin 81 mg Tablet,Chewable 81 mg PO DAILYCM PRN (Reason: TAKES PERIODICALLY) Referrals / Follow Up: ENRICO BELLAMY CRNP [Primary Care Provider] - Disposition Disposition (needs filled in before D/C Order can be placed): Home, Self Care
--- NOTE | 2024-06-15 14:52 | PCM.OPRPT ---
Operative Report (Standard) Operative Information Surgery/Procedure Performed: Cystoscopy, left retrograde pyelogram, left ureteroscopy, urine sent for cytology, left stent placement Surgeon: Delgado Salguero Date of Procedure: 06/15/24 Procedure Start Time: 14:11 Procedure Stop Time: 14:53 Pre-Operative Diagnosis: Bleeding from the left ureter and urinary system Post-Operative Diagnosis: The same Select all DRAINS/GRAFTS/IMPLANTS that apply: Drains Drain details: 7 Tajik by 26 cm stent left side Type of Anesthesia: General Estimated Blood Loss: None Specimen collected: Yes Description of specimen(s) removed: Urine for cytology Description of surgery: This is a 79-year-old male history prostate cancer in the past also history of coronary disease presented with gross bleeding on cystoscopy was found to have blood coming from the left ureteral orifice CAT scan was done and demonstrated just a dilated left collecting system but no obvious tumor so today organ to proceed with ureteroscopy possible biopsy and stent placement he was instructed to stop his Plavix but he failed to stop his Plavix preoperatively so I may admit not be able to do the entire procedure as planned. Patient was taken back to the operating room and a smooth induction of general anesthesia he was placed in dorsolithotomy position. Went to the bladder with a 21 Tajik rigid cystourethroscope. The entire length urethra was normal the prostate was normal partially shaved open from prior TURP once inside the bladder there is some debris from bleeding from the left ureteral orifice I tried to cannulate the left ureteral orifice but the initial wire would not go up I then cannulated with a Pollick catheter performed a retrograde pyelogram we can see J hooking ureter very dilated ureter and what appeared to be some filling defects in the distal left ureter I then used the semirigid ureteroscope and was able to get into the ureter quite difficult angle and then once again in the ureter left the wire in place and we got urine for cytology this was sent off I did not do ureteroscopy elevate the kidney there was a lot of debris and a lot of blood the patient had instructed to stop his Plavix but he failed to follow instructions and still was too bloody to see anything so at this point I displaced a stent it was a 7 Tajik stent on that left side to drain the left kidney will give him instructions stop his aspirin and Plavix and have to bring him back at some point for diagnostic ureteroscopy and also review the cytology to see if any cancer cells and cytology on inspection of the distal ureter I did not see any obvious tumors just like a J-hook in ureter and some dilated distal ureter but I did not inspect the upper kidneys without the bring him back for cystoscopy to inspect the upper kidney and then see if there is any finding that is causing his bleeding. Patient's anesthetic was reversed and taken back to PACU in good condition. Surgical Findings: Very difficult angle to get into the distal left ureter was able to get in with a semirigid ureteroscope lots of blood and debris in the ureter no obvious tumors. But lots of bleeding. Benefits Coordinator pharmacy district manager: No Complications Complications: No Admit VTE Documentation VTE Present on Admission: No VTE Mechan Device Prophylaxis: SCD's VTE Pharm Prophylaxis ordered?: No
--- NOTE | 2024-06-15 14:57 | PCM.POST.ANE ---
Anesthesia: Postop Eval I Current Vital Signs Temperature: 98 F Pulse Rate: 62 Blood Pressure: 127/51 Respiratory Rate: 16 Pulse Ox: 96 Oxygen Delivery Method: Room Air Assessment Airway patent: Yes Spontaneous unlabored respirations: Yes Mental status: Awake and Calm nausea: No Vomiting: No Anesthesia Complication: No Fluid Hydration Crystalloid volume administer (ml): 600 Total IV fluid infused: 600 Progress Note Anesthesia document: Postop Eval 1 completed: Yes
--- NOTE | 2024-06-15 16:38 | POSTOPAN2_ITS ---
Anesthesia Postop Eval I Sum Postop Eval Completion status Anesthesia document: Postop Eval 1 completed: Yes Anesthesia Postop Eval I Summary Anesthesia Postop Eval I Summary: Anesthesia Postop Eval I: Assessment Summary Airway patent Yes 06/15/24 14:57 EMU FARM [email or web address] Spontaneous unlabored Yes 06/15/24 14:57 EMU FARM WORKER.RORY respirations Mental status Awake,Calm 06/15/24 14:57 EMU FARM [email or web address].SKOBY nausea No 06/15/24 14:57 EMU FARM WORKER.GUALBERTOOBJono Vomiting No 06/15/24 14:57 EMU FARM WORKER.GUALBERTOOBJono Anesthesia Postop Eval I: Fluid Summary Crystalloid volume administer 600 06/15/24 14:57 EMU FARM [email or web address].SKOBY (ml) Colloids volume administered ( ml) Blood Product volume administered (ml) Total IV fluid infused 600 06/15/24 14:57 EMU FARM WORKER.GUALBERTOOBJono Anesthesia Postop Eval I: Summary Notes Anesthesia Complication No 06/15/24 14:57 EMU FARM WORKER.RORY Anesthesia Complication Comment: Post-operative progress note Anesthesia: Postop Eval II Evaluation Mental status: Awake and Calm Pain Level: 1 nausea: No Vomiting: No Complications Anesthesia Complication: No
--- NOTE | 2024-06-15 16:38 | PCM.POSTANE2 ---
Anesthesia Postop Eval I Sum Postop Eval Completion status Anesthesia document: Postop Eval 1 completed: Yes Anesthesia Postop Eval I Summary Anesthesia Postop Eval I Summary: Anesthesia Postop Eval I: Assessment Summary Airway patent Yes 06/15/24 14:57 MEN'S [email or web address].[email or web address] Spontaneous unlabored Yes 06/15/24 14:57 MEN'S SWIM COACH.RORY respirations Mental status Awake,Calm 06/15/24 14:57 MEN'S SWIM COACH.SKOBY nausea No 06/15/24 14:57 MEN'S SWIM COACH.GUALBERTOOBJono Vomiting No 06/15/24 14:57 MEN'S SWIM COACH.GUALBERTOOBJono Anesthesia Postop Eval I: Fluid Summary Crystalloid volume administer 600 06/15/24 14:57 MEN'S SWIM COACH.SKOBY (ml) Colloids volume administered ( ml) Blood Product volume administered (ml) Total IV fluid infused 600 06/15/24 14:57 MEN'S SWIM COACH.GUALBERTOOBJono Anesthesia Postop Eval I: Summary Notes Anesthesia Complication No 06/15/24 14:57 MEN'S SWIM COACH.RORY Anesthesia Complication Comment: Post-operative progress note Anesthesia: Postop Eval II Evaluation Mental status: Awake and Calm Pain Level: 1 nausea: No Vomiting: No Complications Anesthesia Complication: No
== END 2024-06-15 16:13 | disposition home or self-care (01) ==
LOC: SDC 11:54 → AC 11:58
PROVIDERS: PCP Nurse Practitioner Adult Health; Referring Provider Urology; Visit Provider Urology
PROC: 0TBB8ZX Excision of Bladder, Via Natural or Artificial Opening Endoscopic, Diagnostic (ICD-10-PCS; CPT 52351; principal; 2024-06-15 13:50)
DX: R31.0 Gross hematuria (principal); J44.9 Chronic obstructive pulmonary disease, unspecified; I10 Essential (primary) hypertension; E78.5 Hyperlipidemia, unspecified; Z86.16 Personal history of COVID-19; G89.29 Other chronic pain; Z87.891 Personal history of nicotine dependence; I25.2 Old myocardial infarction; I73.9 Peripheral vascular disease, unspecified; Z86.711 Personal history of pulmonary embolism; Z85.46 Personal history of malignant neoplasm of prostate; I25.10 Atherosclerotic heart disease of native coronary artery without angina pectoris; Z95.5 Presence of coronary angioplasty implant and graft
CPT/HCPCS: 52351; 52332; 00910; 76000; 88108; 88313; C1769; C1874; C2617; J2405

== ENCOUNTER 2024-06-18 19:34 | Inpatient (IN) | payer MEDICARE, SELFPAY ==
[2024-06-18] VITALS (13 sets, daily range): BP systolic 96–135; BP diastolic 59–81; PULSE 82–98; RESP 17–21; TEMP 36.4–36.9; O2SAT 94–100; BMI 29.0
--- NOTE | 2024-06-18 19:44 | EKG12_ITS ---
Test Reason : CP Blood Pressure : */* mmHG Vent. Rate : 100 BPM Atrial Rate : 100 BPM P-R Int : 172 ms QRS Dur : 140 ms QT Int : 394 ms P-R-T Axes : 77 236 56 degrees QTcB Int : 508 ms Sinus rhythm with Fusion complexes Right bundle branch block Cannot rule out Anteroseptal infarct , age undetermined Abnormal ECG Confirmed by Ashok Mcbride ([id number]), offline editor ANA MURRY ([id number]) on 06/22/2024 6:56:59 AM Referred By: Marilu Decker Confirmed By: Ashok Mcbride
--- NOTE | 2024-06-18 19:46 | EDS_ITS ---
HPI History of Present Illness Chief Complaint: Chest Pain Informant: patient and EMS Onset/Context/Timing Onset: Today Activity at onset: sudden Timing: Continuous Quality: Positive for Heaviness and Pressure Location: Substernal Worsened By: Nothing Relieved By: Nothing Associated Symptoms: Positive for Dyspnea; Negative for Nausea, Vomiting, Diaphoresis, Cough, Fever, Lightheadedness, Acid Reflux or Palpitations Narrative Narrative: Patient presents with chest pain that began tonight. Patient states it began rather suddenly. Patient states he walked from the bathroom and sat down in a chair when the pain began. Patient states the pain is diffuse across his entire chest. Patient states nothing makes it better nothing makes it worse. Patient denies any nausea or vomiting. Patient denies any diaphoresis. Patient does admit to some shortness of breath. Patient denies any fevers or chills. EMS administered 4000 units of heparin and 180 mg of Brilinta. CVD Risk Factors: Positive for Hypertension; Negative for Smoking PE Risk Factors: Positive for Recent Travel/Surgery [facility] Medical History Wears dentures Wears glasses Cancer Arthritis High cholesterol Migraine headache Injury of head and neck History of IBS Gastric reflux Former smoker Sleep apnea History of stress test History of echocardiogram Hypertension Cardiology follow-up encounter History of irregular heartbeat Osteoarthritis Panic attack MARIE (dyspnea on exertion) MVP (mitral valve prolapse) Left carotid bruit Ganglion cyst Edema of both lower extremities CPAP (continuous positive airway pressure) dependence Chronic pain Cataract Bleeding nevus Back pain Aortic valve disease COVID-19 NSTEMI (non-ST elevated myocardial infarction) PAD (peripheral artery disease) Hyperlipidemia Glaucoma Near syncope Hyperglycemia Tobacco user Gastroesophageal reflux disease COPD (chronic obstructive pulmonary disease) Hx pulmonary embolism HTN (hypertension) Prostate cancer Home Medications ?Medication ?Instructions ?Recorded ?Last Taken ?Type timolol maleate 0.5 % eye gel [address] [facility] eye health 07/28/16 01/10/20 History forming solution (Timoptic-XE) pantoprazole 40 mg tablet,delayed 40 mg PO DAILY reflux 06/13/17 06/15/24 History release nitroglycerin 0.4 mg sublingual 0.4 mg sublingual Q5M PRN Chest 03/05/18 01/11/20 History tablet Pain tamsulosin 0.4 mg capsule (Flomax) 0.4 mg PO QHS prostate 06/24/18 01/10/20 History oxycodone-acetaminophen 10 mg-325 10 mg PO BID PRN Pain Score 1-05/0303/20/19 01/08/20 History mg tablet amlodipine 10 mg tablet 10 mg PO DAILY high blood pressure 06/30/23 06/15/24 History dorzolamide 2 % eye drops 1 drp ophthalmic (eye) TID glaucoma 06/30/23 Unknown History isosorbide mononitrate 60 mg 60 mg PO DAILY 07/14/23 06/15/24 History tablet,extended release 24 hr metoprolol succinate 100 mg 150 mg PO DAILY 07/14/23 06/15/24 History tablet,extended release 24 hr benazepril 20 mg tablet 20 mg PO BID 11/07/23 Unknown History brimonidine 0.2 %-timolol 0.5 % 1 drp ophthalmic (eye) BID 11/07/23 Unknown History eye drops latanoprostene bunod 0.024 % eye 1 drp ophthalmic (eye) DAILY 11/07/23 Unknown History drops (Vyzulta) atorvastatin 40 mg tablet 40 mg PO QHS 90 days #90 tabs 11/09/23 Unknown Rx cephalexin 500 mg capsule 500 mg PO TID #15 caps 06/15/24 Unknown Rx oxycodone 5 mg tablet 5 mg PO Q6H PRN pain 3 days #14 06/15/24 Unknown Rx tabs tramadol 50 mg tablet 50 mg PO Q6H PRN pain #14 tabs 06/15/24 Unknown Rx Allergy/AdvReac Type Severity Reaction Status Date / Time Penicillins Allergy Unknown Verified 06/15/24 12:24 Sulfa (Sulfonamide Allergy Unknown Verified 06/15/24 12:24 Antibiotics) carvedilol AdvReac Severe Respiratory Verified 06/15/24 12:24 distress hydralazine AdvReac Intermediate Dizziness Verified 06/15/24 12:24 hydrocodone (From Vicodin) AdvReac Intermediate Other Verified 06/15/24 12:24 morphine AdvReac Intermediate Shortness Verified 06/15/24 12:24 of breath lorazepam AdvReac Other Verified 06/15/24 12:24 Family History Mother COPD (chronic obstructive pulmonary disease) Father Cancer Myocardial infarction Surgical History Hx of cardiac catheterization (~11/08/23) Stented coronary artery (~11/08/23) Hx of eye surgery Hx of tonsillectomy Social History household members: none housing: apartment number of children: 1 current occupational status: retired Smoking Status: Former smoker alcohol intake: never substance use type: does not use caffeine: Yes (all day) Type: coffee ROS ROS ED Constitutional Constitutional ED: Denies chills or fever(s) Eyes Eyes: Denies blurry vision or change in vision ENT ENT ED: Denies rhinorrhea or sore throat Cardiovascular Cardiovascular: Reports chest pain; Denies palpitations Respiratory/Chest Respiratory/Chest: Reports dyspnea; Denies cough Gastrointestinal Gastrointestinal: Denies nausea or vomiting Genitourinary Genitourinary ED: Denies dysuria or hematuria Musculoskeletal Musculoskeletal: Denies back pain or neck pain Integumentary Denies abscess or rash Neurologic Neurologic: Reports weakness; Denies headache(s) Allergic/Immunologic Allergic/Immunologic ED: Denies mouth swelling or urticaria EXAM Physical Exam Const Vital Signs: 06/18/24 19:35 Temperature 97.6 F L Temperature Source Temporal Pulse Rate 98 Respiratory Rate 18 Blood Pressure 135/81 H Blood Pressure Mean 99 Pulse Ox 97 Oxygen Delivery Method Room Air Positive well nourished and well developed General Appearance ED: well developed and NAD HEENT Reports moist mucous membranes Neck supple and no JVD Resp normal respiratory effort and clear to auscultation bilaterally Cardio regular rate and regular rhythm GI soft to palpation, non-tender and non-distended Neuro oriented x3, CN's II-XII intact bilaterally and no sensory deficits noted Sensorium / Orientation: awake and alert Motor Exam: strength 5/5 throughout Psych mental status grossly normal Mood & Affect: anxious Heart Score History: Highly Suspicious ECG: Significant ST-Depression Age: >/= 65 years Risk Factors: >/= 3 Risk Factors or History of CAD Score: 8 MDM MDM MDM Narrative Medical decision making narrative: Differential diagnosis includes. Acute STEMI, cardiac dysrhythmia, cardiac ischemia, electrolyte abnormality, and pulmonary embolism. EKG will be obtained to assess for acute STEMI, cardiac dysrhythmia and cardiac ischemia. CBC will be obtained to assess for leukocytosis and anemia. Basic metabolic profile will be obtained to assess for electrolyte abnormality renal function. PT with INR PTT will be obtained to assess for coagulopathy. High-sensitivity troponin will be obtained to assess for cardiac ischemia. EKG Initial EKG: Attestation: I personally reviewed and interpreted this EKG as follows: Interpretation: Sinus Rhythm (100) and RBBB Comments: EKG was obtained. On my independent interpretation, shows normal sinus rhythm with a rate of 100. TN interval was normal at 172 ms. QRS interval was prolonged at 140 ms. QTc interval was slightly prolonged at 508 ms. There is a right bundle branch block pattern noted. There is ST elevation in leads V1 through V3. Prior EKG tracings: available for review Prior: Changed (The right bundle branch block and ST elevation are new compared to previous EKG dated 11/08/2023.) Management Discussion w/another healthcare provider: Hospitalist and Woodworker Treatment and Re-Evaluation :: Patient was given aspirin. Patient is allergic to morphine. Case was discussed with Dr. Decker from cardiology. He will take the [facility] to [facility]. Case was also discussed with Dr. Anne, hospitalist. He will admit the patient to his service after cardiac cath. Discharge Plan Triage Chief Complaint: Chest Pain ED Provider: Michael Curry Dx/Rx/DC Orders Prescriptions: No Action isosorbide mononitrate 60 mg tablet extended release 24 hr 60 mg PO DAILY Patient Comments: TAKE 1 TABLET BY MOUTH EVERY DAY IN THE MORNING metoprolol succinate 100 mg tablet extended release 24 hr 150 mg PO DAILY Rx Instructions: 100 mg QAM, 50 mg QHS timolol maleate [Timoptic-XE] 1 DROP gel forming solution 1 drp Each Eye QHS pantoprazole 40 MG tablet 40 mg PO DAILY nitroglycerin 0.4 MG tablet 0.4 mg sublingual Q5M PRN (Reason: Chest Pain) tamsulosin [Flomax] 0.4 MG capsule 0.4 mg PO QHS oxycodone-acetaminophen 1 EACH tablet 10 mg PO BID PRN (Reason: Pain Score 1-10/10) Patient Comments: TAKE 1 TABLET BY MOUTH EVERY 12 HOURS dorzolamide 2 % drops 1 drp ophthalmic (eye) TID Patient Comments: INSTILL 1 DROP INTO BOTH EYES 3 TIMES A DAY amlodipine 10 mg tablet 10 mg PO DAILY Patient Comments: TAKE 1 TABLET BY MOUTH EVERY DAY benazepril 20 mg tablet 20 mg PO BID brimonidine-timolol 0.2-0.5 % drops 1 drp ophthalmic (eye) BID Vyzulta 0.024 % drops 1 drp ophthalmic (eye) DAILY atorvastatin 40 mg Tablet 40 mg PO QHS 90 Days Qty: 90 3RF cephalexin 500 mg capsule 500 mg PO TID Qty: 15 0RF oxycodone 5 mg tablet 5 mg PO Q6H PRN (Reason: pain) 3 Days Qty: 14 0RF tramadol 50 mg tablet 50 mg PO Q6H PRN (Reason: pain) Qty: 14 0RF Primary Care Provider: ENRICO BELLAMY Referrals: ENRICO BELLAMY CRNP [Primary Care Provider] - Print Language: Setswana
[2024-06-18] MEDS: Aspirin 81 MG TAB.CHEW 324 MG PO (19:54)
[2024-06-18 19:55] LABS: Absolute Lymphocyte Count 3.86 X10^3/uL (0.83-4.51); Absolute Neutrophil Count 12.5 X10^3/uL (2.0-7.7); Basophil# 0.09 X10^3/uL; Basophil% 0.5 % (0-1); Eosinophil# 0.18 X10^3/uL; Hematocrit 40.1 % (40-54); Hemoglobin 13.9 g/dL (13.0-16.5); Lymphocyte # 3.86 X10^3/ul (0.83-4.51); Lymphocyte % 21.3 % (19-41); Mean Corp Hgb Conc 34.7 g/dL (32-36); Mean Corpuscular Hgb 31.5 pg (27.0-32.0); Mean Corpuscular Volume 90.9 fL (80-94); Mean Platelet Vol. 10.8 fl (6.2-12.0); Monocyte# 1.41 X10^3/uL; Monocyte% 7.8 % (0-10); NRBC Flagged by Analyzer 0 % (0-5); Neutrophil # 12.47 X10^3/uL (2.7-7.7); Neutrophil % 68.8 % (47-70); Platelet Count 363 K/mm3 (150-450); RBC Distribution Width CV 12.3 % (11.6-14.6); RBC Distribution Width SD 41.1 fl (35.1-43.9); Red Blood Count 4.41 M/mm3 (4.6-6.2); White Blood Count 18.1 K/mm3 (4.4-11.0)
--- NOTE | 2024-06-18 20:00 | PCM.HP.STD ---
HPI - General General Date of Admission: 06/18/24 Date of Service: 06/18/24 Chief Complaint: Chest pain HPI Narrative TRI FRANK, is a 79 M who presented to [facility] ED on 06/18/2024 with acute onset chest pain. Was found to have an anterior STEMI enroute to the ED and STEMI alert was activated. I saw the patient briefly on arrival to the ED. He was reporting significant chest pain/pressure but was hemodynamically stable on room air. He was taken emergently to the [facility] and had left heart cath done by Dr. Decker. Coronary angiography revealed 99% in-stent thrombosis of proximal LAD s/p successful percutaneous intervention with balloon angioplasty and IVUS. LV gram did show an estimated EF of 30%. Patient was stable post cath and transported to the ICU for further management. I saw the patient at bedside in the ICU. Patient was laying back in bed fairly comfortably and in no acute distress. Patient did report continued chest pain/pressure when I saw him, though much less severe than prior to cath. Patient was previously hospitalized here in October with chest pain. Had drug-eluting stent x 1 placed to a severe proximal to mid LAD lesion at that time. He notably had not followed up with cardiology since then. Patient has had issues with hematuria since the end of April. He had cystoscopy with left ureteral stent placement with Dr. Salguero on 06/15 and apparently was holding both aspirin and Plavix for some time prior to that procedure. Aside from the chest pressure, patient denies any other acute concerns at this time. [facility] Medical History Wears dentures Wears glasses Cancer Arthritis High cholesterol Migraine headache Injury of head and neck History of IBS Gastric reflux Former smoker Sleep apnea History of stress test History of echocardiogram Hypertension Cardiology follow-up encounter History of irregular heartbeat Osteoarthritis Panic attack MARIE (dyspnea on exertion) MVP (mitral valve prolapse) Left carotid bruit Ganglion cyst Edema of both lower extremities CPAP (continuous positive airway pressure) dependence Chronic pain Cataract Bleeding nevus Back pain Aortic valve disease COVID-19 NSTEMI (non-ST elevated myocardial infarction) PAD (peripheral artery disease) Hyperlipidemia Glaucoma Near syncope Hyperglycemia Tobacco user Gastroesophageal reflux disease COPD (chronic obstructive pulmonary disease) Hx pulmonary embolism HTN (hypertension) Prostate cancer Home Medications ?Medication ?Instructions ?Recorded ?Last Taken ?Type timolol maleate 0.5 % eye gel 1 drp QHS eye health 07/28/16 01/10/20 History forming solution (Timoptic-XE) pantoprazole 40 mg tablet,delayed 40 mg PO DAILY reflux 06/13/17 06/15/24 History release nitroglycerin 0.4 mg sublingual 0.4 mg sublingual Q5M PRN Chest 03/05/18 01/11/20 History tablet Pain tamsulosin 0.4 mg capsule (Flomax) 0.4 mg PO QHS prostate 06/24/18 01/10/20 History oxycodone-acetaminophen 10 mg-325 10 mg PO BID PRN Pain Score 1-05/0303/20/19 01/08/20 History mg tablet amlodipine 10 mg tablet 10 mg PO DAILY high blood pressure 06/30/23 06/15/24 History dorzolamide 2 % eye drops 1 drp ophthalmic (eye) TID glaucoma 06/30/23 Unknown History isosorbide mononitrate 60 mg 60 mg PO DAILY 07/14/23 06/15/24 History tablet,extended release 24 hr metoprolol succinate 100 mg 150 mg PO DAILY 07/14/23 06/15/24 History tablet,extended release 24 hr benazepril 20 mg tablet 20 mg PO BID 11/07/23 Unknown History brimonidine 0.2 %-timolol 0.5 % 1 drp ophthalmic (eye) BID 11/07/23 Unknown History eye drops latanoprostene bunod 0.024 % eye 1 drp ophthalmic (eye) DAILY 11/07/23 Unknown History drops (Vyzulta) atorvastatin 40 mg tablet 40 mg PO QHS 90 days #90 tabs 11/09/23 Unknown Rx cephalexin 500 mg capsule 500 mg PO TID #15 caps 06/15/24 Unknown Rx oxycodone 5 mg tablet 5 mg PO Q6H PRN pain 3 days #14 06/15/24 Unknown Rx tabs tramadol 50 mg tablet 50 mg PO Q6H PRN pain #14 tabs 06/15/24 Unknown Rx Allergy/AdvReac Type Severity Reaction Status Date / Time Penicillins Allergy Unknown Verified 06/15/24 12:24 Sulfa (Sulfonamide Allergy Unknown Verified 06/15/24 12:24 Antibiotics) carvedilol AdvReac Severe Respiratory Verified 06/15/24 12:24 distress hydralazine AdvReac Intermediate Dizziness Verified 06/15/24 12:24 hydrocodone (From Vicodin) AdvReac Intermediate Other Verified 06/15/24 12:24 morphine AdvReac Intermediate Shortness Verified 06/15/24 12:24 of breath lorazepam AdvReac Other Verified 06/15/24 12:24 Family History Mother COPD (chronic obstructive pulmonary disease) Father Cancer Myocardial infarction Surgical History Hx of cardiac catheterization (~11/08/23) Stented coronary artery (~11/08/23) Hx of eye surgery Hx of tonsillectomy Social History household members: none housing: apartment number of children: 1 current occupational status: retired Smoking Status: Former smoker alcohol intake: never substance use type: does not use caffeine: Yes (all day) Type: coffee ROS Constitutional Constitutional: Denies chills, fatigue, fever(s) or weakness Cardiovascular Cardiovascular: Reports chest pain; Denies dyspnea on exertion, edema, lightheadedness or palpitations Respiratory/Chest Respiratory/Chest: Denies cough or shortness of breath at rest Gastrointestinal Gastrointestinal: Denies abdominal pain Musculoskeletal Musculoskeletal: Denies arthralgias or myalgias Vital Signs Vital Signs Vital Signs: 06/18/24 19:35 06/18/24 19:40 06/18/24 19:40 Temperature 97.6 F L Temperature Source Temporal Pulse Rate 98 Respiratory Rate 18 20 H Respiratory Effort Short of Breath Labored Accessory Muscle Use Blood Pressure 135/81 H 135/81 H Blood Pressure Mean 99 Pulse Ox 97 Oxygen Delivery Method Room Air Oxygen Flow Rate (L/min) 06/18/24 19:51 06/18/24 19:51 Temperature 97.9 F Temperature Source Pulse Rate 95 Respiratory Rate 20 H Respiratory Effort Blood Pressure 134/79 H Blood Pressure Mean 97 Pulse Ox 100 100 Oxygen Delivery Method Nasal Cannula Oxygen Flow Rate (L/min) 2 Weight Weight: 81.5 kg Body Mass Index (BMI) 29.0 Physical Exam Const alert, oriented x3, no apparent distress and average body habitus Constitutional Narrative: Pleasant elderly male, mildly fatigued appearing, otherwise laying back fairly comfortably in bed, conversing normally, in no acute distress. General Appearance: cooperative and comfortable HEENT normocephalic, head/scalp atraumatic, hearing grossly normal bilaterally, nasal mucous membranes and turbinates normal and moist oral mucous membranes Eyes PERRL, EOMs intact bilaterally and conjunctivae normal Neck full ROM Chest inspection of chest normal Resp normal respiratory effort, normal air movement, no use of accessory muscles and clear to auscultation bilaterally Cardio regular rate, regular rhythm, no murmurs and peripheral pulses 2+ throughout GI normal to inspection, nondistended, normoactive bowel sounds, soft to palpation, non-tender and non-distended Back/Spine normal ROM Extremity normal to inspection, full ROM and no pedal edema Skin no rashes or lesions noted Psych mental status grossly normal Results Lab / Micro Data 06/18/24 19:43 06/18/24 19:43 Labs: Laboratory Results - last 24 hr 06/18/24 19:43: WBC 18.1 H, RBC 4.41 L, Hgb 13.9, Hct 40.1, MCV 90.9, MCH 31.5, MCHC 34.7, RDW Std Deviation 41.1, RDW Coeff of Suki 12.3, Plt Count 363, MPV 10.8, Immature Gran % (Auto) 0.600, Neut % (Auto) 68.8, Lymph % (Auto) 21.3, [place] % (Auto) 7.8, Eos % (Auto) 1.0, Baso % (Auto) 0.5, Absolute Neuts (auto) 12.5 H, Absolute Lymphs (auto) 3.86, Nucleated RBC % 0 Assessment & Plan Assessment/Plan (1) ST elevation (STEMI) myocardial infarction involving left anterior descending coronary artery: (2) Left ventricular systolic dysfunction (LVSD): PLAN: Plan Patient is an 79-year-old male who presented [facility] ED on 06/18/2024 with chest pain. 1. STEMI ? Admit under patient status to ICU. Cardiology following. Left heart cath showed 99% in-stent thrombosis of proximal LAD s/p successful percutaneous intervention with balloon angioplasty and IVUS. Per cardiology, will need to continue aspirin uninterrupted unless absolutely necessary. Continue Plavix. Continue home statin, ALONDRA inhibitor, nitrate, beta-anupam. Started on Lasix, empagliflozin and spironolactone. Amlodipine discontinued. Monitor vitals closely. Continue cardiac monitoring. 2. Left ventricular systolic dysfunction ? Secondary to STEMI. LV gram during cath showed estimated EF of 30%. Formal echo ordered. Last echo in June 2023 showed EF 65%, no other abnormalities. Medication management as above. 3. History of CAD with stenting, history of PAD, hypertension, hyperlipidemia ? History of NSTEMI in October 2023 with stent x 1 placed to the proximal to mid LAD. Medication management as above. 4. Hematuria, recent left sided hydronephrosis with ureteral stent placement, history of prostate cancer ? Follows with Dr. Salguero outpatient. CT of the pelvis on 05/22 when hematuria started showed moderate left hydronephrosis and hydroureter down to UVJ with prostatic enlargement. Had cystoscopy on 06/15 that showed significant bloody output from left ureteral system; ureteral stent was placed and biopsy samples were collected and are pending. Patient continues to have pinkish urine at this time. Hemoglobin is stable at baseline around 14. No inpatient urology needs at this time. 5. Post catheterization chest pain ? Patient reporting moderate chest pressure post cath. Only minor improvement noted with p.o. oxycodone. IV Dilaudid 0.5 mg every 4 hours as needed ordered for pain control for now. 6. Leukocytosis ? WBC count 18 on admit. Presumed secondary to acute stress state from STEMI, low concern for active infection. Follow-up a.m. CBC. 7. Glaucoma ? Continue home eyedrops. 8. GERD ? Continue home PPI. DVT prophylaxis: Lovenox CODE STATUS: Full code, verified Expected disposition: Home, 2 to 3 days Total clinical time spent by myself addressing the patient's medical issues, reviewing all the data, and collaborating with patient's care team: 55 minutes. Charges/Coding Visit Charges Inpatient E&M: 34866 Init Hosp L2
[2024-06-18 20:01] LABS: International Normalized Ratio 1.2; Prothrombin Time (Protime)PT. 15.1 SECONDS (11.7-14.9)
[2024-06-18 20:12] LABS: Anion Gap 6 (5-15); BUN 20 mg/dL (7-18); BUN/Creat Ratio 21.9 RATIO (10-20); Calcium,Total 9.2 mg/dL (8.5-10.1); Chloride 109 mmol/L (98-107); Creatinine, Serum 0.91 mg/dL (0.70-1.30); EST Glomerular Filtration Rate 85 mL/min (>60); Est Glom Filt Rate - Afr Amer 103 mL/min (>60); Estimated Creatinine Clearance 64.91 ml/min; Glucose 176 mg/dL (74-106); Potassium 3.6 mmol/L (3.5-5.1); Sodium Level 140 mmol/L (136-145); Troponin-I HS 93 pg/mL (3.0-78.0)
[2024-06-18 20:13] LABS: Partial Thromboplast Time 172.5 Seconds (24.1-36.2)
--- NOTE | 2024-06-18 20:18 | CM.ED ---
Social Work Reason for visit: STEMI alert. This SW entered patients room to see if there was any family he would like called as he was brought in alone from his apartment. As SW was entering the room, nurse was notifying patient that she had contacted his daughter. SW reiterated this to patient, he was grateful for same. No further needs identified at this time. Candice Hollingsworth, PATIENT SAFETY COORDINATOR, [employer]
--- NOTE | 2024-06-18 21:03 | CON.PCM.CA_ITS ---
Assessment & Plan Assessment/Plan (1) ST elevation (STEMI) myocardial infarction involving left anterior descending coronary artery: PLAN: Patient was taken emergently to the cardiac catheterization lab. Coronary angiography revealed 99% in-stent thrombosis of proximal LAD. Successful percutaneous intervention was performed with balloon angioplasty. IVUS was also performed. Excellent results were noted with anabaptism of FRANCA-3 flow. Continue aspirin. Continue clopidogrel. (2) CAD (coronary artery disease): PLAN: See #1 above. It is recommended that the patient continue at at least aspirin uninterrupted unless absolutely necessary. Continue clopidogrel. Risk factor modification. (3) Left ventricular systolic dysfunction (LVSD): PLAN: Secondary to #1 above. Patient has a dominant LAD which wraps around the apex and supplies the distal inferior wall as well as the inferior septum. Beta-blockers, ACEI, Aldactone, SGLT2 inhibitors (4) Dyslipidemia: PLAN: Atorvastatin (5) Hematuria: PLAN: Status post ureteral stent placement. Monitor. HPI Consult Data Date of Consult: 06/18/24 HPI Narrative Reason for Consultation: ST ANETTE HPI Narrative: 79-year-old gentleman with past medical history significant for coronary artery disease status post NSTEMI in October of this year. He has had coronary angiography and a drug-eluting stent was placed for his proximal LAD. Recently patient has had gross hematuria. He stopped taking his aspirin and clopidogrel. Developed acute onset chest discomfort this evening about half an hour prior to presentation. EMS was called. An ECG was done in the field which showed changes consistent with acute anterior ST elevation myocardial infarction. Subsequently a STEMI alert was called. It is noted that the patient has not followed with cardiology since his hospitalization in October with NSTEMI. [facility] Medical History Wears dentures Wears glasses Cancer Arthritis High cholesterol Migraine headache Injury of head and neck History of IBS Gastric reflux Former smoker Sleep apnea History of stress test History of echocardiogram Hypertension Cardiology follow-up encounter History of irregular heartbeat Osteoarthritis Panic attack MARIE (dyspnea on exertion) MVP (mitral valve prolapse) Left carotid bruit Ganglion cyst Edema of both lower extremities CPAP (continuous positive airway pressure) dependence Chronic pain Cataract Bleeding nevus Back pain Aortic valve disease COVID-19 NSTEMI (non-ST elevated myocardial infarction) PAD (peripheral artery disease) Hyperlipidemia Glaucoma Near syncope Hyperglycemia Tobacco user Gastroesophageal reflux disease COPD (chronic obstructive pulmonary disease) Hx pulmonary embolism HTN (hypertension) Prostate cancer Home Medications ?Medication ?Instructions ?Recorded ?Last Taken ?Type timolol maleate 0.5 % eye gel 1 drp QHS eye health 07/28/16 01/10/20 History forming solution (Timoptic-XE) pantoprazole 40 mg tablet,delayed 40 mg PO DAILY reflux 06/13/17 06/15/24 History release nitroglycerin 0.4 mg sublingual 0.4 mg sublingual Q5M PRN Chest 03/05/18 01/11/20 History tablet Pain tamsulosin 0.4 mg capsule (Flomax) 0.4 mg PO QHS prostate 06/24/18 01/10/20 History oxycodone-acetaminophen 10 mg-325 10 mg PO BID PRN Pain Score 1-05/0303/20/19 01/08/20 History mg tablet amlodipine 10 mg tablet 10 mg PO DAILY high blood pressure 06/30/23 06/15/24 History dorzolamide 2 % eye drops 1 drp ophthalmic (eye) TID glaucoma 06/30/23 Unknown History isosorbide mononitrate 60 mg 60 mg PO DAILY 07/14/23 06/15/24 History tablet,extended release 24 hr metoprolol succinate 100 mg 150 mg PO DAILY 07/14/23 06/15/24 History tablet,extended release 24 hr benazepril 20 mg tablet 20 mg PO BID 11/07/23 Unknown History brimonidine 0.2 %-timolol 0.5 % 1 drp ophthalmic (eye) BID 11/07/23 Unknown History eye drops latanoprostene bunod 0.024 % eye 1 drp ophthalmic (eye) DAILY 11/07/23 Unknown History drops (Vyzulta) atorvastatin 40 mg tablet 40 mg PO QHS 90 days #90 tabs 11/09/23 Unknown Rx cephalexin 500 mg capsule 500 mg PO TID #15 caps 06/15/24 Unknown Rx oxycodone 5 mg tablet 5 mg PO Q6H PRN pain 3 days #14 06/15/24 Unknown Rx tabs tramadol 50 mg tablet 50 mg PO Q6H PRN pain #14 tabs 06/15/24 Unknown Rx Allergy/AdvReac Type Severity Reaction Status Date / Time Penicillins Allergy Unknown Verified 06/15/24 12:24 Sulfa (Sulfonamide Allergy Unknown Verified 06/15/24 12:24 Antibiotics) carvedilol AdvReac Severe Respiratory Verified 06/15/24 12:24 distress hydralazine AdvReac Intermediate Dizziness Verified 06/15/24 12:24 hydrocodone (From Vicodin) AdvReac Intermediate Other Verified 06/15/24 12:24 morphine AdvReac Intermediate Shortness Verified 06/15/24 12:24 of breath lorazepam AdvReac Other Verified 06/15/24 12:24 Family History Mother COPD (chronic obstructive pulmonary disease) Father Cancer Myocardial infarction Surgical History Hx of cardiac catheterization (~11/08/23) Stented coronary artery (~11/08/23) Hx of eye surgery Hx of tonsillectomy Social History household members: none housing: apartment number of children: 1 current occupational status: retired Smoking Status: Former smoker alcohol intake: never substance use type: does not use caffeine: Yes (all day) Type: coffee Physical Exam Narrative Mildly anxious. Heart sounds 1 and 2 noted. Chest clear to auscultation bilaterally. Alert oriented x 3. No ankle edema. Risk Stratification Risk Stratification Applicable: No Objective Data Vital Signs: Vital Signs Temp Pulse Resp BP Pulse Ox O2 Del Method O2 Flow Rate 97.9 F 95 20 H 134/79 H 100 Nasal Cannula 2 06/18/24 19:51 06/18/24 19:51 06/18/24 19:51 06/18/24 19:51 06/18/24 19:51 06/18/24 19:51 06/18/24 19:51 Oxygen Flow Rate (L/min) 2 Oxygen Delivery Method Nasal Cannula Weight: 179 lb 10.828 oz Body Mass Index (BMI) 29.0 Intake & Output: Intake and Output for Last 24 Hours 06/16/24 06/17/24 06/18/24 23:59 23:59 23:59 Intake Total 0 / 0 Balance 0 / 0 Lab / Micro Data 06/18/24 19:43 06/18/24 19:43 Labs: Laboratory Results - last 24 hr 06/18/24 19:43: WBC 18.1 H, RBC 4.41 L, Hgb 13.9, Hct 40.1, MCV 90.9, MCH 31.5, MCHC 34.7, RDW Std Deviation 41.1, RDW Coeff of Suki 12.3, Plt Count 363, MPV 10.8, Immature Gran % (Auto) 0.600, Neut % (Auto) 68.8, Lymph % (Auto) 21.3, [place] % (Auto) 7.8, Eos % (Auto) 1.0, Baso % (Auto) 0.5, Absolute Neuts (auto) 12.5 H, Absolute Lymphs (auto) 3.86, Nucleated RBC % 0, PT 15.1 H, INR 1.2, APTT 172.5 H*, Sodium 140, Potassium 3.6, Chloride 109 H, Carbon Dioxide 25.0, Anion Gap 6, BUN 20 H, Creatinine 0.91, Estim Creat Clear Calc 64.91, Est GFR (MDRD) Af Amer 103, Est GFR (MDRD) Non-Af 85, BUN/Creatinine Ratio 21.9 H, Glucose 176 H, Calcium 9.2, Troponin I High Sens 93 H Cardiology Labs/Tests 06/18/24 19:43: WBC 18.1 H, RBC 4.41 L, Hgb 13.9, Hct 40.1, MCV 90.9, MCH 31.5, MCHC 34.7, Plt Count 363, MPV 10.8, Immature Gran % (Auto) 0.600, Neut % (Auto) 68.8, Lymph % (Auto) 21.3, [place] % (Auto) 7.8, Eos % (Auto) 1.0, Baso % (Auto) 0.5, Absolute Neuts (auto) 12.5 H, Nucleated RBC % 0, PT 15.1 H, INR 1.2, APTT 172.5 H*, Sodium 140, Potassium 3.6, Chloride 109 H, Carbon Dioxide 25.0, Anion Gap 6, BUN 20 H, Creatinine 0.91, Est GFR (MDRD) Af Amer 103, Est GFR (MDRD) Non-Af 85, BUN/Creatinine Ratio 21.9 H, Glucose 176 H, Calcium 9.2 Rhythm: EKG: ECHO: Stress Test: Cardiac Cath: PCI: CT Surgery: Holter monitor: EPS: PPM: CXR: Chest CT Scan:
[2024-06-18 21:16] LABS: ACT Activated Clotting Time 195 sec (74-137)
[2024-06-18 21:16] LABS: ACT Activated Clotting Time 220 sec (74-137)
--- NOTE | 2024-06-18 21:20 | ECHOCS_ITS ---
Reason For Study: Chest Pain Procedure This was a 2D Doppler, Color Flow transthoracic echocardiogram. Contrast injection was performed. Exam performed portable in ICU/CCU. Left Ventricle Normal LV size. The estimated ejection fraction is 20 %. Stage 2 diastolic dysfunction. The basal segments are diana, the rest of the wall segments are akinetic. Right Ventricle Normal RV size. Normal systolic function. Atria The left and right atria are normal. Mitral Valve The mitral valve is structurally normal. No prolapse or stenosis seen. Mild focal mitral valve calcification of the posterior leaflet. Trivial mitral valve insufficiency. Tricuspid Valve Normal tricuspid valve. Mild (1+) tricuspid valve insufficiency. Pulmonary artery systolic pressure is 45 mmHg. Aortic Valve Trisinus/trileaflet aortic valve. Mild focal aortic valve thickening. Aortic sclerosis, no stenosis. Mild (1+) aortic valve insufficiency. Pulmonic Valve Normal pulmonic valve. Trivial pulmonic valve insufficiency. Great Vessels Normal aortic root. Pericardium/Pleural No pericardial effusion. Medication Diluted definity 3ml given slow IV push to enhance endocardial definition. MMode/2D Measurements & Calculations LVIDd: 3.8 cm IVSd: 1.1 cm LVOT diam: 2.2 cm LVIDs: 2.1 cm LVPWd: 0.82 cm RVDd: 3.5 cm FS: 44.6 % LVOT area: 3.8 cm2 asc Aorta Diam: 3.4 cm LAV(MOD-bp): 39.4 ml LVAd ap4: 33.3 cm2 LAV(MOD-bp) Indexed: 21.3 ml/m2 LVLd ap4: 9.1 cm LAV(MOD-sp2): 43.5 ml EDV(MOD-sp4): 99.2 ml LAV(MOD-sp4): 35.0 ml EDV(sp4-el): 103.4 ml LVAs ap4: 28.3 cm2 LVLs ap4: 8.6 cm ESV(MOD-sp4): 79.1 ml ESV(sp4-el): 79.5 ml EF(MOD-sp4): 20.3 % EF(sp4-el): 23.2 % LVAd ap2: 38.4 cm2 SV(MOD-sp4): 20.1 ml SV(MOD-sp2): 28.2 ml LVLd ap2: 8.9 cm SI(MOD-sp4): 10.9 ml/m2 SI(MOD-sp2): 15.2 ml/m2 EDV(MOD-sp2): 135.3 ml EDV(sp2-el): 140.4 ml LVAs ap2: 33.3 cm2 LVLs ap2: 8.8 cm ESV(MOD-sp2): 107.1 ml ESV(sp2-el): 106.8 ml EF(MOD-sp2): 20.8 % SV(sp4-el): 24.0 ml LA dimension(2D): 4.2 cm LA A4 area: 14.2 cm2 RA A4 area: 9.4 cm2 TAPSE: 1.9 cm Time Measurements MV dec time: 0.18 sec Doppler Measurements & Calculations MV E max juan alberto: 78.0 cm/sec Lat Peak E' Juan Alberto: 6.5 cm/sec Med Peak E' Juan Alberto: 4.5 cm/sec MV A max juan alberto: 86.7 cm/sec E/E' lat: 12.1 E/E' med: 17.5 MV E/A: 0.90 Ao V2 max: 104.1 cm/sec LV V1 max: 93.8 cm/sec MV dec slope: 432.5 cm/sec2 Ao max P.3 mmHg LV V1 max P.5 mmHg Ao V2 mean: 76.3 cm/sec LV V1 mean P.7 mmHg Ao mean P.5 mmHg LV V1 mean: 60.8 cm/sec Ao V2 VTI: 22.4 cm LV V1 VTI: 18.3 cm AV (velocity ratio): 0.82 HERACLIO(I,D): 3.1 cm2 HERACLIO(V,D): 3.4 cm2 SV(LVOT): 70.0 ml PA V2 max: 73.3 cm/sec TR max juan alberto: 302.0 cm/sec TR max P.5 mmHg ECHO/Echo Complete W/ Contrast Interpretation Summary The estimated ejection fraction is 20 %. Anterior, anteroseptal, inferior septa l akinesis. Stage 2 diastolic dysfunction. tricuspid valve insufficiency. Mild focal aortic valve thickening. Mild (1+) aortic valve insufficiency. The study was technically difficult. Contrast injection was performed. Ordering Physician: Marilu Decker Referring Physician: Marilu Decker Performed By: Mary Ramires RVT, RDCS and Student
--- NOTE | 2024-06-18 21:30 | CL.I_ITS ---
Patient Name: TRI FRANK Study Date: 06/18/2024 Performing: Marilu Decker MD Ht: 66 inches 167.64 cm : 1945 Wt: 179.68 lbs 81.5 kg Age: 79 Gender: male BSA: 1.91 PROCEDURE(S) PERFORMED [id number])LHC/COR/LV IC16-([id number])AMI, JUSTIN OR PTCA, ARTERY/GRAFT, SINGLE VESSEL CLINICAL PROFILE AND CO-MORBIDITIES Indications: ACS <= 24 hrs Heart Failure: None CAD Presentations: STEMI. Symptom onset Date/Time: Time Not Available CONCLUSIONS 99% in-stent Prox LAD thrombosis Successful IVL/PTCA Prox LAD using 3.25 mm balloon RECOMMENDATIONS ASA Indefinitley Plavix for at least 12 months DESCRIPTION OF PROCEDURE The patient arrived to the procedure lab. The risks and benefits of the procedure as well as a full description of our services here and lack of surgical backup were fully explained to the patient and/or their significant other prior to the catheterization. The Timeout was completed, verifying the correct patient and procedure. The patient's procedural site was prepped and draped in the usual fashion. Local anesthetic was given subcutaneously to right radial region with Lidocaine 2%. Using a modified Seldinger technique, arterial access was obtained via the right radial artery, a 6Fr sheath was inserted.. Left Coronary Artery selective angiography was performed in multiple views using a 6 Fr.. Right Coronary Artery selective angiography was then performed in multiple views using a 5 Fr. JR 4 catheter. Left Ventriculography was performed in DUMONT projection using a 5 Fr. Pigtail catheter. LV to AO pullback pressures were then recordedThe images were reviewed and options discussed. A decision was then made to proceed with an Intervention, IVUS or other adjunct procedure. xb3 Guide catheter was inserted and engaged into the LCA. runthrough Guide wire was advanced to the LAD. emerge 3.00 x 12 Balloon catheter was advanced across lesion in the LAD, proximal. PTCA balloon inflated at 8 atms for 6 secs. PTCA balloon inflated at 8 atms for 5 secs. PTCA balloon inflated at 12 atms for 12 secs. PTCA balloon inflated at 12 atms for 9 secs. Angiogram performed post balloon dilatation. nc emerge 3.25 x 12 Balloon catheter was advanced across lesion in the LAD, proximal. Angiogram performed post lithotripsy. nc emerge 3.25 x 12 Balloon catheter was inserted post stent. Angiogram performed post balloon dilatation. Angiogram performed post balloon dilatation. The arterial sheath was pulled and a TR Band was applied for hemostasis CORONARY ANGIOGRAPHY DOMINANCE: Left Dominant LEFT HEART ASSESSMENT Left Ventricular Ejection Fraction: by LV Gram 30 % LVEDP: 31 mmHg LEFT MAIN: Angiographically normal LEFT ANTERIOR DESCENDING ARTERY: LAD: Thrombus 99% Proximal lesion in LAD Tubular 50% Mid lesion in LAD OM 1: Tubular 50% Proximal lesion in MARG1 OM 2: Tubular 50% Proximal lesion in MARG1 RIGHT CORONARY ARTERY: RCA: Tubular 50% Proximal lesion in RCA INTERVENTION INFORMATION LESION SITE: LAD (Proximal) Lesion Complexity: High/C, thrombus present: Yes, lesion length: 12 mm, In-stent Thrombosis: Yes Pre Stenosis: 99 % Pre intervention FRANCA flow: 2 PROCEDURE: Balloon Angioplasty, IVL Post Stenosis: 0 % Post intervention FRANCA flow: 3 Lesion Devices: Cordis 6 Fr XB3.0 100cm Guide Catheter Herbert Sci EMERGE MR 3.00x12 BALLOON Terumo .014 180cm Runthrough Extra Floppy straight Herbert Sci NC EMERGE MR 3.25x12 BALLOON [employer] Shockwave IVL cable sleeve [employer] Shockwave IVL 3.0x12 COMPLICATIONS No Complications PROCEDURE MEDICATIONS Oxygen: 2 L/min via nasal cannula Heparin 4000 unit(s) IV 06/18/2024 20:14:23 Lasix 40 mg IV 06/18/2024 21:05:04 Heparin 2000 unit(s) IV 06/18/2024 21:05:13 Nitro 200 mcg IC 06/18/2024 20:46:20 Verapamil 2.5mg, Ntg 200mcgs, given IA 06/18/2024 20:10:30 SUMMARY OF HEMODYNAMIC DATA Time AIR REST ECG 20:05:26 AO 116/82 (100) SA 20:18:23 LV 131/15, 31 20:54:09 LV 134/13, 31 20:54:18 LV 128/39, 42 20:55:37 LVp 129/38, 42 20:55:44 AOp 0/0 (54) 20:55:52 21:28:14 Signed By Marilu Decker MD On 06/18/2024 21:29:39 Marilu Decker MD
--- NOTE | 2024-06-18 22:10 | EKG12_ITS ---
Test Reason : Blood Pressure : */* mmHG Vent. Rate : 82 BPM Atrial Rate : 82 BPM P-R Int : 208 ms QRS Dur : 96 ms QT Int : 386 ms P-R-T Axes : 55 62 69 degrees QTcB Int : 450 ms Critical Test Result: STEMI Normal sinus rhythm Anteroseptal infarct , possibly acute ACUTE NH / STEMI Abnormal ECG When compared with ECG of 18-Jun-2024 19:39, MANUAL COMPARISON REQUIRED DATA IS UNCONFIRMED Confirmed by Ashok Mcbride ([id number]), newspaper copy editor ANA MURRY ([id number]) on 06/19/2024 10:46:34 AM Referred By: Marilu Decker Confirmed By: Ashok Mcbride
[2024-06-18] MEDS: 0.9% Normal Saline (1000mL) 1,000 ML 75 ML IV (22:18)
[2024-06-18] MEDS: BRIMONIDINE 0.2% 5ML BOTTLE 1 DRP EACH EYE (22:21)
[2024-06-18] MEDS: Timolol 0.5% 5ML OPTH.BTL 1 DRP EACH EYE (22:21)
[2024-06-18] MEDS: Metoprolol(XL)Succ 50 MG Tablet PO (22:21)
[2024-06-18] MEDS: Atorvastatin Calcium 40 MG Tablet PO (22:21)
[2024-06-18] MEDS: Tamsulosin HCl 0.4 MG Capsule PO (22:21)
[2024-06-18] MEDS: Dorzolamide 2% 10ml Bottle 1 DRP EACH EYE (22:21)
[2024-06-18] MEDS: Lisinopril 20 MG Tablet PO (22:22)
[2024-06-18] MEDS: Nitroglycerin (INPATIENT USE) 0.4 MG TAB.SUBL SL (22:35)
[2024-06-18] MEDS: oxyCODONE 5 MG Tablet PO (23:05)
[2024-06-18] MEDS: Acetaminophen 325 MG Tablet 650 MG PO (23:05)
[2024-06-19] VITALS (20 sets, daily range): BP systolic 93–117; BP diastolic 54–82; PULSE 65–88; RESP 11–20; TEMP 36.3–37.2; O2SAT 95–100; BMI 26.9
[2024-06-19] MEDS: Nitroglycerin (INPATIENT USE) 0.4 MG TAB.SUBL SL (00:53)
[2024-06-19] MEDS: HYDROmorphone 1 MG/ML Syringe 0.5 MG IV ×2 (01:16→05:54)
[2024-06-19] MEDS: Clopidogrel Bisulfate 300 MG Tablet PO (02:46)
[2024-06-19] MEDS: 0.9% Saline Lock 10 ML Syringe IV ×2 (05:01→05:54)
[2024-06-19] MEDS: Dorzolamide 2% 10ml Bottle 1 DRP EACH EYE ×2 (05:01→21:57)
[2024-06-19 05:13] LABS: Hematocrit 36.2 % (40-54); Hemoglobin 12.5 g/dL (13.0-16.5); Mean Corp Hgb Conc 34.5 g/dL (32-36); Mean Corpuscular Hgb 31.2 pg (27.0-32.0); Mean Corpuscular Volume 90.3 fL (80-94); Mean Platelet Vol. 10.6 fl (6.2-12.0); Platelet Count 318 K/mm3 (150-450); RBC Distribution Width CV 12.2 % (11.6-14.6); RBC Distribution Width SD 40.3 fl (35.1-43.9); Red Blood Count 4.01 M/mm3 (4.6-6.2); White Blood Count 19.1 K/mm3 (4.4-11.0)
[2024-06-19 05:33] LABS: ALB/GLOB Ratio 0.8 RATIO (0.9-2.4); AST(SGOT) 503 U/L (15-37); Alanine Aminotransfer ALT/SGPT 108 U/L (16-61); Albumin, Serum 3.1 g/dL (3.2-5.0); Alkaline Phosphatase 78 U/L (45-117); Anion Gap 7 (5-15); BUN 18 mg/dL (7-18); BUN/Creat Ratio 20.2 RATIO (10-20); Calcium,Total 8.8 mg/dL (8.5-10.1); Chloride 106 mmol/L (98-107); Creatinine, Serum 0.89 mg/dL (0.70-1.30); EST Glomerular Filtration Rate 87 mL/min (>60); Est Glom Filt Rate - Afr Amer 105 mL/min (>60); Estimated Creatinine Clearance 59.74 ml/min; Globulin 4.1 g/dL (2.2-4.2); Glucose 151 mg/dL (74-106); Potassium 3.1 mmol/L (3.5-5.1); Protein, Total 7.2 g/dL (6.4-8.2); Sodium Level 138 mmol/L (136-145)
[2024-06-19 06:50] LABS: Cholesterol 84 mg/dL (200); High Density Lipoprotein 29 mg/dL; T4 Free Direct 1.24 ng/dL (0.76-1.46); Thyroid Stim Hormone (TSH) 0.543 uIU/mL (0.358-3.740); Triglycerides 78 mg/dL; Very Low Density Lipoprotein 16 mg/dL (5-40)
--- NOTE | 2024-06-19 07:33 | QUALITY_ITS ---
STEMI STEMI ED Door Time / Other REG STEMI EKG Time (1) ST elevation (STEMI) myocardial infarction involving left anterior de scending coronary artery: Acute ~06/18/24 19:34 Balloon/Aspiration Date-Time Date of Balloon/Aspiration:: 06/18/24 Time of Balloon/Aspiration:: 20:24
[2024-06-19 07:43] LABS: Hemoglobin A1c 5.5 % (3.8-5.6)
[2024-06-19] MEDS: Pantoprazole Sodium 40 MG Tablet PO (08:14)
[2024-06-19] MEDS: Isosorbide Mononitrate 60 MG Tablet PO (08:14)
[2024-06-19] MEDS: Aspirin E.C. 81 MG Tablet PO (08:14)
[2024-06-19] MEDS: Furosemide 40 MG Tablet PO (08:15)
[2024-06-19] MEDS: Potassium Chloride Oral Tablet 20 MEQ PO (08:15)
[2024-06-19] MEDS: Lisinopril 20 MG Tablet PO ×2 (08:15→21:59)
[2024-06-19] MEDS: Spironolactone 25 MG Tablet 12.5 MG PO (08:15)
[2024-06-19] MEDS: Metoprolol(XL)Succ 100 MG Tablet PO (08:15)
--- NOTE | 2024-06-19 10:00 | EKG12_ITS ---
Test Reason : AM Blood Pressure : */* mmHG Vent. Rate : 73 BPM Atrial Rate : 73 BPM P-R Int : 212 ms QRS Dur : 104 ms QT Int : 398 ms P-R-T Axes : 63 53 78 degrees QTcB Int : 438 ms Sinus rhythm with 1st degree A-V block Septal infarct , age undetermined Abnormal ECG When compared with ECG of 18-Jun-2024 22:10, MANUAL COMPARISON REQUIRED DATA IS UNCONFIRMED Confirmed by Ashok Mcbride ([id number]), newspaper editor managing ANA MURRY ([id number]) on 06/19/2024 10:44:31 AM Referred By: Marilu Decker Confirmed By: Ashok Mcbride
[2024-06-19] MEDS: Empagliflozin 10 MG Tablet PO (10:58)
--- NOTE | 2024-06-19 11:24 | PN.CARD_ITS ---
Subjective Subjective Denies any complaints. Lying flat in the bed. No apparent distress. Objective Data Vital Signs: Vital Signs Temp Pulse Resp BP Pulse Ox O2 Del Method O2 Flow Rate 98.2 F 71 15 112/65 98 Room Air 2 06/19/24 08:00 06/19/24 10:00 06/19/24 10:00 06/19/24 10:00 06/19/24 10:00 06/19/24 10:00 06/19/24 07:00 Oxygen Flow Rate (L/min) 2 Oxygen Delivery Method Room Air Weight: 167 lb 8.821 oz Body Mass Index (BMI) 26.9 Intake & Output: Intake and Output for Last 24 Hours 06/17/24 06/18/24 06/19/24 23:59 23:59 23:59 Intake Total 0 / 0 Output Total 1999 400 / 400 Balance -1999 / -400 / -400 Lab / Micro Data Attestation: I reviewed the patient's lab results. 06/19/24 05:00 06/19/24 05:00 Labs: Laboratory Results - last 24 hr 06/18/24 19:43: WBC 18.1 H, RBC 4.41 L, Hgb 13.9, Hct 40.1, MCV 90.9, MCH 31.5, MCHC 34.7, RDW Std Deviation 41.1, RDW Coeff of Suki 12.3, Plt Count 363, MPV 10.8, Immature Gran % (Auto) 0.600, Neut % (Auto) 68.8, Lymph % (Auto) 21.3, [place] % (Auto) 7.8, Eos % (Auto) 1.0, Baso % (Auto) 0.5, Absolute Neuts (auto) 12.5 H, Absolute Lymphs (auto) 3.86, Nucleated RBC % 0, PT 15.1 H, INR 1.2, APTT 172.5 H*, Sodium 140, Potassium 3.6, Chloride 109 H, Carbon Dioxide 25.0, Anion Gap 6, BUN 20 H, Creatinine 0.91, Estim Creat Clear Calc 64.91, Est GFR (MDRD) Af Amer 103, Est GFR (MDRD) Non-Af 85, BUN/Creatinine Ratio 21.9 H, Glucose 176 H, Calcium 9.2, Troponin I High Sens 93 H 06/18/24 20:16: Activated Clotting Time 195 H 06/18/24 20:57: Activated Clotting Time 220 H 06/19/24 05:00: WBC 19.1 H, RBC 4.01 L, Hgb 12.5 L, Hct 36.2 L, MCV 90.3, MCH 31.2, MCHC 34.5, RDW Std Deviation 40.3, RDW Coeff of Suki 12.2, Plt Count 318, MPV 10.6, Sodium 138, Potassium 3.1 L, Chloride 106, Carbon Dioxide 26.0, Anion Gap 7, BUN 18, Creatinine 0.89, Estim Creat Clear Calc 59.74, Est GFR (MDRD) Af Amer 105, Est GFR (MDRD) Non-Af 87, BUN/Creatinine Ratio 20.2 H, Glucose 151 H, Hemoglobin A1c 5.5, Calcium 8.8, Total Bilirubin 0.90, AST 503 H, ALT 108 H, Alkaline Phosphatase 78, Total Protein 7.2, Albumin 3.1 L, Globulin 4.1, A lbumin/Globulin Ratio 0.8 L, Triglycerides 78, Cholesterol 84, LDL Cholesterol 39, VLDL Cholesterol 16, HDL Cholesterol 29 L, TSH 0.543, Free T4 1.24 Rhythm Strip Rhythm Strip: Sinus Rhythm Cardiology Labs/Tests 06/18/24 19:43: WBC 18.1 H, RBC 4.41 L, Hgb 13.9, Hct 40.1, MCV 90.9, MCH 31.5, MCHC 34.7, Plt Count 363, MPV 10.8, Immature Gran % (Auto) 0.600, Neut % (Auto) 68.8, Lymph % (Auto) 21.3, [place] % (Auto) 7.8, Eos % (Auto) 1.0, Baso % (Auto) 0.5, Absolute Neuts (auto) 12.5 H, Nucleated RBC % 0, PT 15.1 H, INR 1.2, APTT 172.5 H*, Sodium 140, Potassium 3.6, Chloride 109 H, Carbon Dioxide 25.0, Anion Gap 6, BUN 20 H, Creatinine 0.91, Est GFR (MDRD) Af Amer 103, Est GFR (MDRD) Non-Af 85, BUN/Creatinine Ratio 21.9 H, Glucose 176 H, Calcium 9.2 06/19/24 05:00: WBC 19.1 H, RBC 4.01 L, Hgb 12.5 L, Hct 36.2 L, MCV 90.3, MCH 31.2, MCHC 34.5, Plt Count 318, MPV 10.6, Sodium 138, Potassium 3.1 L, Chloride 106, Carbon Dioxide 26.0, Anion Gap 7, BUN 18, Creatinine 0.89, Est GFR (MDRD) Af Amer 105, Est GFR (MDRD) Non-Af 87, BUN/Creatinine Ratio 20.2 H, Glucose 151 H, Hemoglobin A1c 5.5, Calcium 8.8, Total Bilirubin 0.90, Triglycerides 78, Cholesterol 84, LDL Cholesterol 39, VLDL Cholesterol 16, HDL Cholesterol 29 L Rhythm: EKG: Sinus rhythm. Evolutionary changes consistent with recent anterior SD. ECHO: Stress Test: Cardiac Cath: PCI: CT Surgery: Holter monitor: EPS: PPM: CXR: Chest CT Scan: Radiography Diagnostic Testing: Radiology Impression Echocardiogram 06/18/24 21:20 Interpretation Summary The estimated ejection fraction is 20 %. Anterior, anteroseptal, inferior septal akinesis. Stage 2 diastolic dysfunction. tricuspid valve insufficiency. Mild focal aortic valve thickening. Mild (1+) aortic valve insufficiency. The study was technically difficult. Contrast injection was performed. Ordering Physician: Marilu Decker Referring Physician: Marilu Decker Performed By: Keyla Christo [facility], Mary and Student Physical Exam Narrative Heart sounds 1 and 2 normal. Chest clear to auscultation bilaterally. Alert oriented x 3. No ankle edema. Assessment & Plan Assessment/Plan (1) ST elevation (STEMI) myocardial infarction involving left anterior descending coronary artery: PLAN: Status post balloon angioplasty and IVUS to the previously deployed stent to proximal LAD. Continue aspirin indefinitely. Continue clopidogrel. If hematuria worsens, then may consider discontinuing clopidogrel. (2) CAD (coronary artery disease): PLAN: See #1 above. It is recommended that the patient continue at at least aspirin uninterrupted unless absolutely necessary. Continue clopidogrel. Risk factor modification. (3) Left ventricular systolic dysfunction (LVSD): PLAN: Secondary to #1 above. Patient has a dominant LAD which wraps around the apex and supplies the distal inferior wall as well as the inferior septum. Anterior wall, apex, inferior and anterior septum akinetic on echocardiogram. LVEF estimated at 20%. Beta-blockers, ACEI, Aldactone, SGLT2 inhibitors (4) Dyslipidemia: PLAN: Atorvastatin (5) Hematuria: PLAN: Status post ureteral stent placement. Monitor. PLAN: Plan May DC home in the morning if continues to be stable.
--- NOTE | 2024-06-19 12:17 | CASEMGMT ---
JOHNY QUIROZ Assessment Face to Face with patient for initial transition planning/care coordination assessment. RN GABRIELLA introduced self and role at [facility], pt voices understanding. Pt is A&Ox4 and is resting comfortably in bed and is calm. Care providers, pharmacy, and demographics verified. Admitting dx: STEMI Alert LACE Strata: 3 PCP: Maday Oneil Specialists: Cristobal (Pulm), Macario (Cardio) Preferred Pharmacy: [facility] Insurance: [employer] [facility] Prescription Benefit: Yes LNOK: Meliza Robles (Katie) Living Arrangements: Pt lives alone in a first floor apartment with a flat entrance ADLs/IADLs: Reports ind at baseline. Transportation: Self, daughter DME: Home oxygen through [employer]. Verified that the pt current order states 2L HS bleed through [employer]. Pt states that he also has a concentrator, pox, and cane. HHC/SNF: Denies history Pt?s goal: Return to PLOF Plan: TBD. Anticipate SNF vs Home with HH. There is no 6-Click score entered. PT/OT and ST are ordered and pending. Per the pt RN, the pt has not been eating or taking his medications as ordered at home. There has been discussion about an APS referral. SW notified and aware. At this time, the pt states that he would be willing to go to a SNF for further therapy prior to returning home, if recommended by PT. GABRIELLA and SW to follow therapy recommendations and f/u with the pt subsequently. Veronica Aquino RN, CM
--- NOTE | 2024-06-19 12:55 | PCM.PN.CARD ---
Subjective Subjective Patient denies any ongoing chest discomfort this morning. He is seated in the chair breathing normally. He does have multiple other somatic complaints that he was given to the nursing staff about multiple pains which he treats with narcotics in his home environment. The patient was oriented x 3 to me but the nurses report that just prior to me entering the room they had reoriented him as he did not know the time or date. Objective Data Vital Signs: Vital Signs Temp Pulse Resp BP Pulse Ox O2 Del Method O2 Flow Rate 98.0 F 71 11 L 112/66 99 Room Air 2 06/19/24 12:00 06/19/24 12:00 06/19/24 12:00 06/19/24 12:00 06/19/24 12:00 06/19/24 12:00 06/19/24 07:00 Oxygen Flow Rate (L/min) 2 Oxygen Delivery Method Room Air Weight: 167 lb 8.821 oz Body Mass Index (BMI) 26.9 Intake & Output: Intake and Output for Last 24 Hours 06/17/24 06/18/24 06/19/24 23:59 23:59 23:59 Intake Total 0 / 0 993.75 / 993.75 Output Total 1999 400 / 400 Balance -1999 593.75 / 593.75 Lab / Micro Data Attestation: I reviewed the patient's lab results. 06/19/24 05:00 06/19/24 05:00 Labs: Laboratory Results - last 24 hr 06/18/24 19:43: WBC 18.1 H, RBC 4.41 L, Hgb 13.9, Hct 40.1, MCV 90.9, MCH 31.5, MCHC 34.7, RDW Std Deviation 41.1, RDW Coeff of Suki 12.3, Plt Count 363, MPV 10.8, Immature Gran % (Auto) 0.600, Neut % (Auto) 68.8, Lymph % (Auto) 21.3, [place] % (Auto) 7.8, Eos % (Auto) 1.0, Baso % (Auto) 0.5, Absolute Neuts (auto) 12.5 H, Absolute Lymphs (auto) 3.86, Nucleated RBC % 0, PT 15.1 H, INR 1.2, APTT 172.5 H*, Sodium 140, Potassium 3.6, Chloride 109 H, Carbon Dioxide 25.0, Anion Gap 6, BUN 20 H, Creatinine 0.91, Estim Creat Clear Calc 64.91, Est GFR (MDRD) Af Amer 103, Est GFR (MDRD) Non-Af 85, BUN/Creatinine Ratio 21.9 H, Glucose 176 H, Calcium 9.2, Troponin I High Sens 93 H 06/18/24 20:16: Activated Clotting Time 195 H 06/18/24 20:57: Activated Clotting Time 220 H 06/19/24 05:00: WBC 19.1 H, RBC 4.01 L, Hgb 12.5 L, Hct 36.2 L, MCV 90.3, MCH 31.2, MCHC 34.5, RDW Std Deviation 40.3, RDW Coeff of Suki 12.2, Plt Count 318, MPV 10.6, Sodium 138, Potassium 3.1 L, Chloride 106, Carbon Dioxide 26.0, Anion Gap 7, BUN 18, Creatinine 0.89, Estim Creat Clear Calc 59.74, Est GFR (MDRD) Af Amer 105, Est GFR (MDRD) Non-Af 87, BUN/Creatinine Ratio 20.2 H, Glucose 151 H, Hemoglobin A1c 5.5, Calcium 8.8, Total Bilirubin 0.90, AST 503 H, ALT 108 H, Alkaline Phosphatase 78, Total Protein 7.2, Albumin 3.1 L, Globulin 4.1, Albumin/Globulin Ratio 0.8 L, Triglycerides 78, Cholesterol 84, LDL Cholesterol 39, VLDL Cholesterol 16, HDL Cholesterol 29 L, TSH 0.543, Free T4 1.24 Rhythm Strip Rhythm Strip: Sinus Rhythm Rate: 80 Cardiology Labs/Tests 06/18/24 19:43: WBC 18.1 H, RBC 4.41 L, Hgb 13.9, Hct 40.1, MCV 90.9, MCH 31.5, MCHC 34.7, Plt Count 363, MPV 10.8, Immature Gran % (Auto) 0.600, Neut % (Auto) 68.8, Lymph % (Auto) 21.3, [place] % (Auto) 7.8, Eos % (Auto) 1.0, Baso % (Auto) 0.5, Absolute Neuts (auto) 12.5 H, Nucleated RBC % 0, PT 15.1 H, INR 1.2, APTT 172.5 H*, Sodium 140, Potassium 3.6, Chloride 109 H, Carbon Dioxide 25.0, Anion Gap 6, BUN 20 H, Creatinine 0.91, Est GFR (MDRD) Af Amer 103, Est GFR (MDRD) Non-Af 85, BUN/Creatinine Ratio 21.9 H, Glucose 176 H, Calcium 9.2 06/19/24 05:00: WBC 19.1 H, RBC 4.01 L, Hgb 12.5 L, Hct 36.2 L, MCV 90.3, MCH 31.2, MCHC 34.5, Plt Count 318, MPV 10.6, Sodium 138, Potassium 3.1 L, Chloride 106, Carbon Dioxide 26.0, Anion Gap 7, BUN 18, Creatinine 0.89, Est GFR (MDRD) Af Amer 105, Est GFR (MDRD) Non-Af 87, BUN/Creatinine Ratio 20.2 H, Glucose 151 H, Hemoglobin A1c 5.5, Calcium 8.8, Total Bilirubin 0.90, Triglycerides 78, Cholesterol 84, LDL Cholesterol 39, VLDL Cholesterol 16, HDL Cholesterol 29 L Rhythm: EKG: ECHO: Stress Test: Cardiac Cath: PCI: CT Surgery: Holter monitor: EPS: PPM: CXR: Chest CT Scan: Radiography Diagnostic Testing: Radiology Impression Echocardiogram 06/18/24 21:20 Interpretation Summary The estimated ejection fraction is 20 %. Anterior, anteroseptal, inferior septal akinesis. Stage 2 diastolic dysfunction. tricuspid valve insufficiency. Mild focal aortic valve thickening. Mild (1+) aortic valve insufficiency. The study was technically difficult. Contrast injection was performed. Ordering Physician: Marilu Decker Referring Physician: Marilu Decker Performed By: Keyla DORSEY RDCS, Mary and Student Physical Exam Const alert and oriented x3 HEENT normocephalic Neck no JVD Carotids: Negative for bruit Chest inspection of chest normal Resp normal respiratory effort and clear to auscultation bilaterally Cardio Rate: regular rate Rhythm: regular rhythm Heart Sounds: S1 normal and S2 normal; Negative for click, gallop, murmur or rub Extremity no pedal edema Extremity Narrative: Right radial insertion site is healing well no evidence of hematoma. Neuro Neuro Narrative: Alert and oriented x 3. Psych mental status grossly normal Assessment & Plan Assessment/Plan (1) ST elevation (STEMI) myocardial infarction involving left anterior descending coronary artery: PLAN: Patient had a recurrent ST segment elevation microinfarction of his anterior wall. He had previously been stented earlier this spring but had stopped his antiplatelet agents due to hematuria. The patient came in with a thrombosed LAD stent which was revascularized last evening. The echocardiogram showed an ejection fraction of 20% with wall motion abnormality in the distribution of the LAD. The patient will be evaluated by social media project manager and assistance in his home environment will be required if he is able to return to living alone at home. The patient has had issues with medical compliance due to his inability to figure out his medications by his report. He lives alone in his own home. Patient has been reinstituted on Plavix and aspirin he is also on amlodipine as well as metoprolol 100 mg twice daily furosemide 40 mg daily Imdur 60 mg daily lisinopril 20 mg twice daily and spironolactone 12.5 mg daily. Will reevaluate the patient's LV function in 6 to 12 weeks after he has been on guideline directed medical therapy. (2) Left ventricular systolic dysfunction (LVSD): PLAN: Patient is currently on guideline directed medical therapy for LV recovery. The patient's previous LV function was estimated 65% at the time of his last cath October 2023. The plan will be to reevaluate his LV function with limited echocardiogram in 6 to 12 weeks. PLAN: Plan 1. Continue current guideline directed medical therapy for LV recovery. 2. Will need social media project manager input to assist with home health medications. 3. Patient should follow-up in the [place] [facility] office in 7 to 10 days following discharge. Charges/Coding Visit Charges Inpatient E&M: 88809 Subs Hosp L2
[2024-06-19] MEDS: Calcium Carbonate 500 MG Tablet PO (13:24)
--- NOTE | 2024-06-19 14:03 | CRPHASE1 ---
Patient Communication Patient Information Former Patient:: Phase I and Phase II PHII Cardiac Rehab Discussed with Patient:: Yes Guide to Cardiac Rehab Given to Patient:: Yes Communication to Cardiac Rehab Choice Program [facility] CR PHII:: Communication Given to CR Word Processing Specialist:: Marilu Decker Phase II Cardiac Rehab:: Yes Sessions:: 36 sessions - 3 days/wk, 12 weeks Cardiac Rehabilitation Info Program Information Cardiac Rehabilitation Program Information: Cardiac Rehab The cardiac rehab team at [facility] consists of highly skilled exercise physiologists, nurses, respiratory therapists and physicians working together with you. Our purpose is to help you have a full recovery and achieve the goals you set for yourself. Over the years many of our patients have returned to activities they assumed they would never do again! We can help restore your confidence and motivation to make lifestyle changes that can have a significant impact on your health and quality of life! We can help answer questions and concerns you may have about exercise, lifestyle, medications, diet, stress and anxiety which are common following a hospitalization. WE monitor ECG and vital signs during exercise and discuss your progress with you and report to your physician(s). Cardiac Rehab is proven to help reduce readmissions, improve functional capacity and lower recurrence of problems with your heart. Our Cardiac Rehab program is Certified by the [place] [employer] Cardio-Vascular and Pulmonary [employer] (AACVPR) and Accredited by the [place] [employer] through our [facility]. You can contact us at . We invite you to call us with your questions or to get started in our program. If you have other questions or concerns be sure to ask your physician/provider during your follow-up visit. WE look forward to seeing you!
--- NOTE | 2024-06-19 14:04 | CRPH1.INSTRU ---
General Education Discussed with Patient CAD and cardiac anatomy and function:: Patient communicates acknowledgment Explanation of diagnoses and procedures:: Patient communicates acknowledgment Sign/Symptoms of OR:: Patient communicates acknowledgment Antiplatelet therapy: Patient communicates acknowledgment Proper use of NTG-SL: Patient communicates acknowledgment Emergency procedures and activation of EMS: Patient communicates acknowledgment Compliance of all prescribed medications: Patient communicates acknowledgment Smoking Risk Factors Patient Nicotine/Smoking Risk Factors Are:: Cigarettes Recommendations Recommendations Include:: Second-hand smoke recommendation, Participation in a smoking cessation program and Previous smoker; encourage continued cessation Response Code Nicotine/Smoking Response Code:: Patient communicates acknowledgment Dyslipidemia Risk Factors Patient Dyslipidemia Risk Factors Are:: Total Cholesterol, Triglycerides, HDL and LDL Recommendations Recommendations Include:: Lipid profile provided, Reviewed NCEP/ATP guidelines and Therapeutic Lifestyle Change dietary guidelines Response Code Dyslipidemia Response Code:: Patient communicates acknowledgment Overweight/Obesity Risk Factors Patient Overweight/Obesity Risk Factors Are:: Overweight = 26-29 Recommendations Recommendations Include:: Weight loss of 5-10%, Reduced calorie diet and Exercise 5-7 times/week Response Code Overweight/Obesity:: Patient communicates acknowledgment Hypertension Recommendations Recommendations Include:: Maintain BP <130/85, DASH dietary guidelines, Decrease/maintain normal body weight and Moderation of ETOH Response Code Hypertension:: Patient communicates acknowledgment Diabetes Risk Factors Patient Diabetes Risk Factors Are:: No documented hx of diabetes Metabolic Syndrome Risk Factors Patient Metabolic Syndrome Risk Factors Are [3 of 5]:: Fasting blood sugar > 100 mg/dL, High triglyceride >150, Hypertension and Low HDL <40 [male] or < 50 [female] Recommendations Recommendations Include:: Reinforce compliance to risk factor modifications and Encouraged follow-up with Primary Care Physician Response Code Metabolic Syndrome Response Code:: Patient communicates acknowledgment Sedentary Risk Factors Patient Sedentary Risk Factors Are:: Lack of regular exercise Recommendations Recommendations Include:: Aerobic exercise 5-7 times/week for 20-30 minutes continuously, Benefits of regular exercise, Discussed home walking program and Monitored Outpatient Cardiac Rehab Response Code Sedentary Response Code:: Patient communicates acknowledgment Stress Recommendations Recommendations Include:: Identification of stressors, and assessment of coping skills and Stress management techniques Response Code Stress Response Code:: Patient communicates acknowledgment
--- NOTE | 2024-06-19 14:45 | CASEMGMT ---
Addendum entered by Lanny Aquino 06/19/24 15:23: [facility] returns call and states that they are able to accept for SOC on Tuesday. DC plan updated. Original Note: PT states to this RN CM that the pt did well and that the pt will be safe to return home at time of DC. Per the medical team, the pt has not been taking his medications as prescribed at home. This RN CM to pt room at this time. This RN CM inquired if the pt utilizes a pill organizer. The pt states that he does not and that he just lays his pills out on his counter the night before having to take them. The pt admits he does not have trustworthy system in place regarding his medications. This RN CM questioned the pt if he would be interested in a nurse coming out to his home to help him with this. This RN CM described that the nurse can help with getting his medication regimen under control and provide education as needed. Pt states that he is agreeable to this and that he declines wanting to review a list of local in-network [facility] companies and would like to go through [facility]. TC to Laquita at [facility] and referral made for SN. Awaiting return response.
--- NOTE | 2024-06-19 16:08 | PCM.PN.HOSP ---
Reason for Visit Reason for Visit: Diagnoses Hyperlipidemia, unspecified (06/18/24) ST elevation (STEMI) myocardial infarction involving left anterior descending coronary artery (06/18/24) Atherosclerotic heart disease of [place] coronary artery without angina pectoris (06/18/24) Other ill-defined heart diseases (06/18/24) Hematuria, unspecified (06/18/24) Subjective Subjective Patient was seen and examined today, he complained of chest pain right above his xiphoid process. Patient states he also has mid upper back pain. Was told by nursing today that discharge planning for the patient included temporary placement in a detention facility, I did not talk to the patient concerning this, however I did talk to the patient's daughter (she is an only child) and she states that she worries about the patient due to the fact that he does not eat properly at home and does not take his medication properly even though he seems to know that he should take the medication. I asked her if she was the power of immigration attorney for the patient and she said no and I told her that if the patient desired to go home, I was not able to prevent him from going home rather than go to a long term. I suggested that she talk with the patient concerning obtaining medical power of immigration attorney over the patient. I also told her that if the patient chooses to return home I would recommend Adult Protective Services check on the patient to make sure that he is taken care of. Objective Data Objective Data Vital Signs: Vital Signs Temp Pulse Resp BP Pulse Ox O2 Del Method O2 Flow Rate 98.0 F 82 16 103/65 98 Room Air 2 06/19/24 12:00 06/19/24 14:00 06/19/24 14:00 06/19/24 14:00 06/19/24 14:00 06/19/24 14:00 06/19/24 07:00 Oxygen Flow Rate (L/min) 2 Oxygen Delivery Method Room Air Weight: 76 kg Body Mass Index (BMI) 26.9 Intake & Output: Intake and Output for Last 24 Hours 06/17/24 06/18/24 06/19/24 23:59 23:59 23:59 Intake Total 0 / 0 993.75 / 993.75 Output Total 1999 400 / 400 Balance -1999 / 593.75 / 593.75 Lab / Micro Data 06/19/24 05:00 06/19/24 05:00 Labs: Laboratory Results - last 24 hr 06/18/24 19:43: WBC 18.1 H, RBC 4.41 L, Hgb 13.9, Hct 40.1, MCV 90.9, MCH 31.5, MCHC 34.7, RDW Std Deviation 41.1, RDW Coeff of [place]uki 12.3, Plt Count 363, MPV 10.8, Immature Gran % (Auto) 0.600, Neut % (Auto) 68.8, Lymph % (Auto) 21.3, [place] % (Auto) 7.8, Eos % (Auto) 1.0, Baso % (Auto) 0.5, Absolute Neuts (auto) 12.5 H, Absolute Lymphs (auto) 3.86, Nucleated RBC % 0, PT 15.1 H, INR 1.2, APTT 172.5 H*, Sodium 140, Potassium 3.6, Chloride 109 H, Carbon Dioxide 25.0, Anion Gap 6, BUN 20 H, Creatinine 0.91, Estim Creat Clear Calc 64.91, Est GFR (MDRD) Af Amer 103, Est GFR (MDRD) Non-Af 85, BUN/Creatinine Ratio 21.9 H, Glucose 176 H, Calcium 9.2, Troponin I High Sens 93 H 06/18/24 20:16: Activated Clotting Time 195 H 06/18/24 20:57: Activated Clotting Time 220 H 06/19/24 05:00: WBC 19.1 H, RBC 4.01 L, Hgb 12.5 L, Hct 36.2 L, MCV 90.3, MCH 31.2, MCHC 34.5, RDW Std Deviation 40.3, RDW Coeff of [place] 12.2, Plt Count 318, MPV 10.6, Sodium 138, Potassium 3.1 L, Chloride 106, Carbon Dioxide 26.0, Anion Gap 7, BUN 18, Creatinine 0.89, Estim Creat Clear Calc 59.74, Est GFR (MDRD) Af Amer 105, Est GFR (MDRD) Non-Af 87, BUN/Creatinine Ratio 20.2 H, Glucose 151 H, Hemoglobin A1c 5.5, Calcium 8.8, Total Bilirubin 0.90, AST 503 H, ALT 108 H, Alkaline Phosphatase 78, Total Protein 7.2, Albumin 3.1 L, Globulin 4.1, Albumin/Globulin Ratio 0.8 L, Triglycerides 78, Cholesterol 84, LDL Cholesterol 39, VLDL Cholesterol 16, HDL Cholesterol 29 L, TSH 0.543, Free T4 1.24 Radiography Diagnostic Testing: Radiology Impression Echocardiogram 06/18/24 21:20 Interpretation Summary The estimated ejection fraction is 20 %. Anterior, anteroseptal, inferior septal akinesis. Stage 2 diastolic dysfunction. tricuspid valve insufficiency. Mild focal aortic valve thickening. Mild (1+) aortic valve insufficiency. The study was technically difficult. Contrast injection was performed. Ordering Physician: Marilu Decker Referring Physician: Marilu Decker Performed By: Mary Ramires RVT, RDCS and Student Rhythm Strip Rhythm Strip: Sinus Rhythm Rate: 80 Physical Exam Const alert, oriented x3, no apparent distress and healthy appearing General Appearance: cooperative, well kempt and well developed Orientation / Consciousness: awake, oriented to person and oriented to place HEENT normocephalic, head/scalp atraumatic and moist oral mucous membranes Eyes PERRL, EOMs intact bilaterally and conjunctivae normal Neck supple, no JVD, thyroid normal and no carotid bruits General: trachea midline Resp normal respiratory effort and clear to auscultation bilaterally Auscultation: Negative for rales, rhonchi or wheezes Cardio regular rate, regular rhythm, no murmurs, no rub and no gallops GI normal to inspection, nondistended, normoactive bowel sounds, soft to palpation, non-tender and non-distended Extremity no clubbing, cyanosis or edema Skin no rashes or lesions noted General Skin Exam: no breakdown Neuro CN's II-XII intact bilaterally, no focal motor deficits and no sensory deficits noted Sensorium / Orientation: awake, alert, oriented to person, oriented to place and oriented to time Speech: speech normal Psych affect normal Assessment & Plan Assessment/Plan (1) ST elevation (STEMI) myocardial infarction involving left anterior descending coronary artery: PLAN: Plan 1. ST elevation TN secondary to occlusive coronary disease in the LAD-status post PCI on 06/18/2024-continue present medications, patient appears stable for transfer to PCU at this time, patient will have an echocardiogram today, I briefly talked with cardiology about his care. #2 essential hypertension-patient will remain on his present blood pressure medications, they will be adjusted as needed #3 [id number]-[id number] unclear, according to the daughter patient knows he should take his medication but chooses not to at times, it probably will be necessary to have Adult Protective Services check on the patient after he is discharged to home, patient will be seen by PT and OT to see if there is any need for temporary detention care. #4 glaucoma-patient is currently on several eyedrops, these will be continued Total clinical time spent by myself addressing the patient's medical issues, reviewing all of his data, and collaborating with patient's care team: 35 minutes Charges/Coding Visit Charges Inpatient E&M: 34614 Subs Hosp L2
[2024-06-19] MEDS: Timolol 0.5% 5ML OPTH.BTL 1 DRP EACH EYE (21:57)
[2024-06-19] MEDS: BRIMONIDINE 0.2% 5ML BOTTLE 1 DRP EACH EYE (21:58)
[2024-06-19] MEDS: Tamsulosin HCl 0.4 MG Capsule PO (22:00)
[2024-06-19] MEDS: Atorvastatin Calcium 40 MG Tablet PO (22:04)
[2024-06-19] MEDS: Metoprolol(XL)Succ 50 MG Tablet PO (22:04)
[2024-06-20 03:06] VITALS: BMI 27.0
[2024-06-20 03:09] VITALS: BP 110/62; PULSE 84; RESP 18; TEMP 36.9; O2SAT 94
[2024-06-20] MEDS: Dorzolamide 2% 10ml Bottle 1 DRP EACH EYE (05:34)
--- NOTE | 2024-06-20 08:12 | EKG12_ITS ---
Test Reason : AM EKG Blood Pressure : */* mmHG Vent. Rate : 89 BPM Atrial Rate : 89 BPM P-R Int : 196 ms QRS Dur : 88 ms QT Int : 410 ms P-R-T Axes : 62 16 181 degrees QTcB Int : 498 ms Normal sinus rhythm Anteroseptal infarct (cited on or before 18-Jun-2024) ST & T wave abnormality, consider lateral ischemia Abnormal ECG When compared with ECG of 19-Jun-2024 05:44, Serial changes of Anteroseptal infarct Present Confirmed by Ashok Mcbride ([id number]), greeting card editor ANA MURRY ([id number]) on 06/20/2024 9:42:31 AM Referred By: Marilu Decker Confirmed By: Ashok Mcbride
--- NOTE | 2024-06-20 08:40 | PCM.PN.CARD ---
Subjective Subjective Patient is resting flat in the bed but he does complain of pleuritic chest discomfort. It obviously changed was deep inspiration. An EKG was performed which showed no new changes compared to his previous one following his intervention. The patient seems to be confused and admits so to his medication regimen. He is requesting home health aides but he very well may need a transitional care unit admission or some other more intensive correction assistance. Objective Data Vital Signs: Vital Signs Temp Pulse Resp BP Pulse Ox O2 Del Method O2 Flow Rate 98.4 F 84 18 110/62 94 Room Air 2 06/20/24 03:09 06/20/24 03:09 06/20/24 03:09 06/20/24 03:09 06/20/24 03:09 06/20/24 03:09 06/19/24 07:00 Oxygen Flow Rate (L/min) 2 Oxygen Delivery Method Room Air Weight: 167 lb 8.821 oz Body Mass Index (BMI) 27.0 Intake & Output: Intake and Output for Last 24 Hours 06/18/24 06/19/24 06/20/24 23:59 23:59 23:59 Intake Total 0 / 0 993.75 / 993.75 Output Total 1999 / 1999 400 / 400 Balance -1999 / 593.75 / 593.75 Lab / Micro Data 06/19/24 05:00 06/19/24 05:00 Rhythm Strip Rhythm Strip: Sinus Rhythm Rate: 85 Cardiology Labs/Tests Rhythm: EKG: ECHO: Stress Test: Cardiac Cath: PCI: CT Surgery: Holter monitor: EPS: PPM: CXR: Chest CT Scan: Radiography Diagnostic Testing: Radiology Impression Echocardiogram 06/18/24 21:20 Interpretation Summary The estimated ejection fraction is 20 %. Anterior, anteroseptal, inferior septal akinesis. Stage 2 diastolic dysfunction. tricuspid valve insufficiency. Mild focal aortic valve thickening. Mild (1+) aortic valve insufficiency. The study was technically difficult. Contrast injection was performed. Ordering Physician: Marilu Decker Referring Physician: Marilu Decker Performed By: Mary Ramires RVT, RDCS and Student Physical Exam Const alert and oriented x3 HEENT normocephalic Eyes EOMs intact bilaterally Neck no JVD Chest inspection of chest normal Resp normal respiratory effort Auscultation: crackles bilateral base Cardio regular rate, regular rhythm, S1 normal heart sound, S2 normal heart sound, no murmurs, no rub and no gallops Extremity no pedal edema Neuro Neuro Narrative: Alert Psych mental status grossly normal Assessment & Plan Assessment/Plan (1) Left ventricular systolic dysfunction (LVSD): PLAN: Patient's LVEF is estimated to 20% range at the time of his acute intervention on this admission. This was a late thrombosis of an LAD stent placed in October 2023 due to the patient interrupting his dual antiplatelet therapy. Currently the patient is tolerating the atorvastatin aspirin and Plavix. He is also on furosemide 40 mg daily as well as Imdur 60 mg daily. He is on metoprolol succinate 50 mg daily and lisinopril 20 mg twice daily. He is also tolerating spironolactone 12.5 mg daily. The patient should be continued on these current medications and follow-up in the [facility] office in 7 to 10 days after discharge. Will repeat his echocardiogram after he is titrated on guideline directed medical therapy to maximum tolerated doses for 6 to 12 weeks. After his previous intervention in October 2023 the patient never followed up with the documentum consultant. business services manager and/or home health need to be involved and potentially the patient may need a transitional care more intensive skilled assistance. (2) ST elevation (STEMI) myocardial infarction involving left anterior descending coronary artery: PLAN: Patient's STEMI was precipitated by a late occlusion of his LAD stent. He was subsequently revascularized but now has an ejection fraction in the 20% range. PLAN: Plan 1. Continue current medical therapy blood pressure and heart rate are tolerating the medications appropriately. 2. Will need to arrange with social sciences department chair for appropriate home health and/or assisted living care. 3. Will follow-up with the [facility] office in 7 to 10 days after discharge. Charges/Coding Visit Charges Inpatient E&M: 89168 [facility] Hosp L3
[2024-06-20 09:04] VITALS: BP 119/75; PULSE 102; RESP 16; TEMP 36.8; O2SAT 96
[2024-06-20] MEDS: Timolol 0.5% 5ML OPTH.BTL 1 DRP EACH EYE (09:11)
[2024-06-20] MEDS: BRIMONIDINE 0.2% 5ML BOTTLE 1 DRP EACH EYE (09:11)
[2024-06-20 09:12] VITALS: BP 119/75; PULSE 102
[2024-06-20] MEDS: Metoprolol(XL)Succ 100 MG Tablet PO (09:12)
[2024-06-20] MEDS: Clopidogrel Bisulfate 75 MG Tablet PO (09:12)
[2024-06-20] MEDS: Enoxaparin 40 MG/0.4 ML Syringe SC (09:12)
[2024-06-20] MEDS: Spironolactone 25 MG Tablet 12.5 MG PO (09:12)
[2024-06-20] MEDS: Isosorbide Mononitrate 60 MG Tablet PO (09:13)
[2024-06-20] MEDS: Furosemide 40 MG Tablet PO (09:13)
[2024-06-20] MEDS: Aspirin E.C. 81 MG Tablet PO (09:13)
[2024-06-20] MEDS: Pantoprazole Sodium 40 MG Tablet PO (09:13)
[2024-06-20] MEDS: Empagliflozin 10 MG Tablet PO (09:13)
[2024-06-20] MEDS: Potassium Chloride Oral Tablet 20 MEQ PO ×2 (09:13→18:14)
[2024-06-20] MEDS: Lisinopril 20 MG Tablet PO (09:13)
--- NOTE | 2024-06-20 10:00 | EKG12_ITS ---
Test Reason : CP Blood Pressure : */* mmHG Vent. Rate : 94 BPM Atrial Rate : 94 BPM P-R Int : 196 ms QRS Dur : 84 ms QT Int : 390 ms P-R-T Axes : 54 25 180 degrees QTcB Int : 487 ms Normal sinus rhythm Anteroseptal infarct , age undetermined ST & T wave abnormality, consider inferolateral ischemia Abnormal ECG When compared with ECG of 20-Jun-2024 05:35, MANUAL COMPARISON REQUIRED DATA IS UNCONFIRMED Confirmed by Ashok Mcbride ([id number]), general expeditor ANA MURRY ([id number]) on 06/20/2024 2:15:09 PM Referred By: Marilu Decker Confirmed By: Ashok Mcbride
[2024-06-20 10:41] VITALS: O2SAT 95
--- NOTE | 2024-06-20 11:06 | CRPHASE1 ---
Patient Communication Patient Information Former Patient:: Phase I PHII Cardiac Rehab Discussed with Patient:: Yes Guide to Cardiac Rehab Given to Patient:: Yes Cardiac Rehab Facility Choice List Given to Patient:: Yes Communication to Cardiac Rehab Choice Program [facility] PHII:: Communication Given to CR Door Glass Installer:: Orville Ospina Sessions:: 36 sessions - 3 days/wk, 12 weeks Cardiac Rehabilitation Info Program Information Cardiac Rehabilitation Program Information: Cardiac Rehab The cardiac rehab team at [facility] consists of highly skilled exercise physiologists, nurses, respiratory therapists and physicians working together with you. Our purpose is to help you have a full recovery and achieve the goals you set for yourself. Over the years many of our patients have returned to activities they assumed they would never do again! We can help restore your confidence and motivation to make lifestyle changes that can have a significant impact on your health and quality of life! We can help answer questions and concerns you may have about exercise, lifestyle, medications, diet, stress and anxiety which are common following a hospitalization. WE monitor ECG and vital signs during exercise and discuss your progress with you and report to your physician(s). Cardiac Rehab is proven to help reduce readmissions, improve functional capacity and lower recurrence of problems with your heart. Our Cardiac Rehab program is Certified by the [place] [employer] Pulmonary [employer] (AACVPR) and Accredited by the [place] [employer] through our [facility]. You can contact us at . We invite you to call us with your questions or to get started in our program. If you have other questions or concerns be sure to ask your physician/provider during your follow-up visit. WE look forward to seeing you!
--- NOTE | 2024-06-20 11:07 | CRPH1.INST_ITS ---
General Education Discussed with Patient CAD and cardiac anatomy and function:: Patient communicates acknowledgment Explanation of diagnoses and procedures:: Patient communicates acknowledgment Sign/Symptoms of IA:: Patient communicates acknowledgment Antiplatelet therapy: Patient communicates acknowledgment Proper use of NTG-SL: Patient communicates acknowledgment Emergency procedures and activation of EMS: Patient communicates acknowledgment Compliance of all prescribed medications: Patient communicates acknowledgment Smoking Recommendations Recommendations Include:: Previous smoker; encourage continued cessation Response Code Nicotine/Smoking Response Code:: Patient communicates acknowledgment Dyslipidemia Recommendations Recommendations Include:: Lipid profile not available, Reviewed NCEP/ATP guidelines and Therapeutic Lifestyle Change dietary guidelines Response Code Dyslipidemia Response Code:: Patient communicates acknowledgment Overweight/Obesity Risk Factors Patient Overweight/Obesity Risk Factors Are:: BMI Normal [18-25 & < 65 years old] Recommendations Recommendations Include:: Exercise 5-7 times/week Response Code Overweight/Obesity:: Not instructed Hypertension Recommendations Recommendations Include:: Maintain BP <130/85, DASH dietary guidelines, Decre ase/maintain normal body weight and Moderation of ETOH Response Code Hypertension:: Patient communicates acknowledgment Heart Disease Risk Factors Patient Heart Disease Risk Factors Are:: Family history of heart disease < 65 years old and Previous cardiac event Recommendations Recommendations Include:: Educated family members of their risk and Educated family members of importance of prevention of heart disease Response Code Heart Disease Response Code:: Patient communicates acknowledgment Metabolic Syndrome Recommendations Recommendations Include:: Does not meet criteria Response Code Metabolic Syndrome Response Code:: Patient communicates acknowledgment Sedentary Risk Factors Patient Sedentary Risk Factors Are:: Lack of regular exercise Recommendations Recommendations Include:: Aerobic exercise 5-7 times/week for 20-30 minutes continuously, Benefits of regular exercise, Discussed home walking program and Monitored Outpatient Cardiac Rehab Response Code Sedentary Response Code:: Patient communicates acknowledgment Stress Risk Factors Patient Stress Risk Factors Are:: Patient denies stress as a risk factor Recommendations Recommendations Include:: Identification of stressors, and assessment of coping skills and Stress management techniques Response Code Stress Response Code:: Patient communicates acknowledgment
[2024-06-20 12:35] LABS: Anion Gap 7 (5-15); BUN 12 mg/dL (7-18); Calcium,Total 8.8 mg/dL (8.5-10.1); Chloride 105 mmol/L (98-107); Creatinine, Serum 1.09 mg/dL (0.70-1.30); EST Glomerular Filtration Rate 69 mL/min (>60); Est Glom Filt Rate - Afr Amer 84 mL/min (>60); Estimated Creatinine Clearance 48.78 ml/min; Glucose 130 mg/dL (74-106); Potassium 3.3 mmol/L (3.5-5.1); Sodium Level 137 mmol/L (136-145)
--- NOTE | 2024-06-20 12:59 | DCINST_ITS ---
Discharge Instructions Diet Discharge Diet: No restrictions DC O2, CPAP, BIPAP needs Additional Home O2 Discharge instructions: No Dressing / Incision Discharge Activity: Return to Normal Activity Weight Bearing Status: Full weight bearing Follow Up Care Test Results: Test results from this visit will be discussed in further detail at your follow- up appointment, if applicable. Discharge Plan Admission Admit Date/Time: 06/18/24 22:07 Primary Reason for Your Visit: STEMI Attending Provider: Yaw Yao Primary Care Provider: ENRICO BELLAMY Consulting Providers: Rudi Anne Instructions Additional Instructions / Restrictions: You may take your Atorvastatin every morning Discharge Orders/Prescriptions Prescriptions: New furosemide 40 mg Tablet 40 mg PO DAILY Qty: 30 0RF atorvastatin 40 mg Tablet 40 mg PO QHS Qty: 30 0RF clopidogrel 75 mg Tablet 75 mg PO DAILY Qty: 30 0RF aspirin 81 mg Tablet,Delayed Release (Dr/Ec) 81 mg PO DAILY@0800 Qty: 0 0RF isosorbide mononitrate 60 mg Tablet Extended Release 24 Hr 60 mg PO DAILY Qty: 30 0RF potassium chloride 20 mEq Tablet,Er Particles/Crystals 20 meq PO DAILYCM Qty: 30 0RF pantoprazole 40 mg Tablet,Delayed Release (Dr/Ec) 40 mg PO DAILY Qty: 30 0RF nitroglycerin 0.4 mg Tablet, Sublingual 0.4 mg sublingual Q5M PRN (Reason: Chest Pain) Qty: 25 0RF Jardiance 10 mg Tablet 10 mg PO DAILY Qty: 30 0RF tamsulosin 0.4 mg Capsule 0.4 mg PO QHS Qty: 30 0RF metoprolol succinate 50 mg tablet extended release 24 hr 150 mg PO DAILY Qty: 90 0RF Rx Instructions: three tablets every morning spironolactone [Aldactone] 25 mg tablet 25 mg PO DAILY Qty: 30 0RF lisinopril 40 mg tablet 40 mg PO DAILY Qty: 30 0RF donepezil [Aricept] 5 mg tablet 5 mg PO DAILY Qty: 30 0RF Rx Instructions: after one month, increase to 10 mg daily Continued timolol maleate [Timoptic-XE] 1 DROP gel forming solution 1 drp Each Eye QHS dorzolamide 2 % drops 1 drp ophthalmic (eye) TID Patient Comments: INSTILL 1 DROP INTO BOTH EYES 3 TIMES A DAY brimonidine-timolol 0.2-0.5 % drops 1 drp ophthalmic (eye) BID Vyzulta 0.024 % drops 1 drp ophthalmic (eye) DAILY Discontinued isosorbide mononitrate 60 mg tablet extended release 24 hr 60 mg PO DAILY Patient Comments: TAKE 1 TABLET BY MOUTH EVERY DAY IN THE MORNING pantoprazole 40 MG tablet 40 mg PO DAILY nitroglycerin 0.4 MG tablet 0.4 mg sublingual Q5M PRN (Reason: Chest Pain) tamsulosin [Flomax] 0.4 MG capsule 0.4 mg PO QHS benazepril 20 mg tablet 20 mg PO BID atorvastatin 40 mg Tablet 40 mg PO QHS 90 Days Qty: 90 3RF tramadol 50 mg tablet 50 mg PO Q6H PRN (Reason: pain) Qty: 14 0RF No Action metoprolol succinate 100 mg tablet extended release 24 hr 150 mg PO DAILY Rx Instructions: 100 mg QAM, 50 mg QHS oxycodone-acetaminophen 1 EACH tablet 10 mg PO BID PRN (Reason: Pain Score 1-10/10) Patient Comments: TAKE 1 TABLET BY MOUTH EVERY 12 HOURS amlodipine 10 mg tablet 10 mg PO DAILY Patient Comments: TAKE 1 TABLET BY MOUTH EVERY DAY cephalexin 500 mg capsule 500 mg PO TID Qty: 15 0RF oxycodone 5 mg tablet 5 mg PO Q6H PRN (Reason: pain) 3 Days Qty: 14 0RF Referrals / Follow Up: Ashok Mcbride MD [Med Staff - Active Staff] - 06/26/24 3:30 pm (Appointment is with Jarvis Ramires N.P.) ENRICO BELLAMY CRNP [Primary Care Provider] - Within 2 Weeks Disposition Disposition (needs filled in before D/C Order can be placed): Home Health Service
--- NOTE | 2024-06-20 13:32 | PCM.DC.SUM ---
Providers Date of Admission: 06/18/24 Date of Discharge: 06/20/24 Primary Care Physician: RAQUEL PACE Reason For Visit: STEMI ALERT Diagnosis Discharge Diagnosis (1) Left ventricular systolic dysfunction (LVSD): Status: Acute Code(s): I51.89 - Other ill-defined heart diseases (2) ST elevation (STEMI) myocardial infarction involving left anterior descending coronary artery: Status: Inactive Code(s): I21.02 - ST elevation (STEMI) myocardial infarction involving left anterior descending coronary artery Plan 1. ST elevation [place] secondary to occlusive coronary disease in the LAD-status post PCI on 06/18/2024-continue present medications, patient appears stable for transfer to PCU at this time, patient will have an echocardiogram today, I briefly talked with cardiology about his care. #2 essential hypertension-patient will remain on his present blood pressure medications, they will be adjusted as needed #3 [id number] unclear, according to the daughter patient knows he should take his medication but chooses not to at times, it probably will be necessary to have Adult Protective Services check on the patient after he is discharged to home, patient will be seen by PT and OT to see if there is any need for temporary custodial care. #4 glaucoma-patient is currently on several eyedrops, these will be continued #5 cognitive impairment-this appears to be chronic in nature, etiology unclear Total clinical time spent by myself addressing the patient's medical issues, reviewing all of his data, and collaborating with patient's care team: 35 minutes Medications at Discharge Home Medications timolol maleate 0.5 % eye gel forming solution (Timoptic-XE) 1 drp [facility] eye health 07/28/16 oxycodone-acetaminophen 10 mg-325 mg tablet 10 mg PO BID PRN Pain Score 1-05/0303/20/19 amlodipine 10 mg tablet 10 mg PO DAILY high blood pressure 06/30/23 dorzolamide 2 % eye drops 1 drp ophthalmic (eye) TID glaucoma 06/30/23 metoprolol succinate 100 mg tablet,extended release 24 hr 150 mg PO DAILY 07/14/23 brimonidine 0.2 %-timolol 0.5 % eye drops 1 drp ophthalmic (eye) BID 11/07/23 latanoprostene bunod 0.024 % eye drops (Vyzulta) 1 drp ophthalmic (eye) DAILY 11/07/23 cephalexin 500 mg capsule 500 mg PO TID #15 caps 06/15/24 aspirin 81 mg tablet,delayed release 81 mg PO DAILY@0800 #0 tabs 06/20/24 atorvastatin 40 mg tablet 40 mg PO QHS #30 tabs 06/20/24 clopidogrel 75 mg tablet 75 mg PO DAILY #30 tabs 06/20/24 donepezil 5 mg tablet (Aricept) 5 mg PO DAILY #30 tabs 06/20/24 empagliflozin 10 mg tablet (Jardiance) 10 mg PO DAILY #30 tabs 06/20/24 furosemide 40 mg tablet 40 mg PO DAILY #30 tabs 06/20/24 isosorbide mononitrate 60 mg tablet,extended release 24 hr 60 mg PO DAILY #30 tabs 06/20/24 lisinopril 40 mg tablet 40 mg PO DAILY #30 tabs 06/20/24 metoprolol succinate 50 mg tablet,extended release 24 hr 150 mg (3 x 50 mg) PO DAILY #90 tabs 06/20/24 nitroglycerin 0.4 mg sublingual tablet 0.4 mg sublingual Q5M PRN Chest Pain #25 tabs 06/20/24 pantoprazole 40 mg tablet,delayed release 40 mg PO DAILY #30 tabs 06/20/24 potassium chloride 20 mEq tablet,extended release(part/cryst) 20 meq PO DAILYCM #30 tabs 06/20/24 spironolactone 25 mg tablet (Aldactone) 25 mg PO DAILY #30 tabs 06/20/24 tamsulosin 0.4 mg capsule 0.4 mg PO QHS #30 caps 06/20/24 Hospital Course Operations None Procedures 2-D Echocardiogram and Cardiac catheterization Summary of Care Provided Minutes Spent on Discharge: 32 Hospital Course: This 79-year-old white male was seen in the emergency room at [facility] with complaints of acute chest pain. Patient was found to have an anterior STEMI and route to the ER and STEMI alert was activated he was taken emergently to the Director Of Financial Planning and a left heart catheterization was performed which showed a 99% in-stent stenosis of the proximal LAD, percutaneous intervention was performed and was successful. No new stent was placed patient was then admitted to ICU for further management, echocardiogram was obtained which showed his EF to be 20 to 25%. Patient's medications were adjusted by cardiology, it was noted that the patient had moderate cognitive impairment, the etiology of this was unknown but felt to possibly be secondary to undiagnosed dementia. Patient was seen by PT and OT and he was able to ambulate without difficulty, conversations were carried out with the patient's daughter who was an only child, it was explained to the daughter that the patient could not go to an extended care facility on the basis of cognitive impairment alone. Arrangements are made for the patient to be discharged home. On 06/20/2024, patient was seen and examined: On examination he appeared in good health and spirits. Vital signs as documented. Skin warm and dry and without overt rashes. Neck without JVD, neck was supple, trachea midline, thyroid was normal. Lungs clear bilaterally, normal air movement was noted. Heart exam notable for regular rhythm, normal sounds and absence of murmurs, rubs or gallops. Abdomen unremarkable and without evidence of organomegaly, masses, or abdominal aortic enlargement. Bowel sounds are present, abdomen is not distended. Extremities nonedematous, no cyanosis was noted, no clubbing was noted. Neuro: Cranial nerves II through XII are grossly intact, no focal motor deficits were noted, sensation to light touch and pinprick intact, motor exam 5/5 throughout. Psych: Patient is alert he was oriented x 3 but showed evidence of some mild to moderate cognitive impairment Patient was discharged home in stable condition on 06/20/2024 Weight / BMI Weight Weight: 76 kg Body Mass Index (BMI) 27.0 ABG / Lab / Microbiology Data 06/19/24 05:00 06/20/24 11:47 Laboratory: Laboratory Results - last 24 hr 06/20/24 11:47: Sodium 137, Potassium 3.3 L, Chloride 105, Carbon Dioxide 25.0, Anion Gap 7, BUN 12, Creatinine 1.09, Estim Creat Clear Calc 48.78, Est GFR (MDRD) Af Amer 84, Est GFR (MDRD) Non-Af 69, BUN/Creatinine Ratio 11.0, Glucose 130 H, Calcium 8.8 D/C Instructions Discharge Diet: No restrictions Weight Bearing Status: Full weight bearing DC O2, CPAP, BIPAP Needs Additional Home O2 Discharge instructions: No DC home with Oxygen: No Meaningful Use Info Meaningful Use Meaningful Use Diagnoses (Choose all that apply): AMI AMI/Post PCI/Angioplasty Aspirin given w/in 24hrs of arrival?: Yes ASA at discharge?: Yes Antiplatelet Therapy at Discharge:: Yes Statins at discharge?: Yes Emmanuel/ARB at discharge?: Yes Beta Vivien at discharge?: Yes Done w/ Acute [place] measure.: Yes Documented LVEF (%): 20 Ischemic Stroke Statin Dosing Therapy Reference: STATIN DOSE THERAPY REFERENCE: * Patients > 75 years receive moderate or high dose statin therapy. * Patients 75 years or YOUNGER should receive HIGH intensity statin dose unless contraindicated. You will be required to document reason for non-treatment if statin daily dose does not meet guidelines. HIGH DOSE STATIN THERAPY DAILY Atorvastatin > than or = to 40 mg Rosuvastatin > than or = to 20 mg Amlodipine + Atorvastatin > than or = to 2.5/40 mg Ezetimibe + Simvastatin 10/80 mg Simvastatin 80mg Discharge Plan Admission Admit Date/Time: 06/18/24 22:07 Primary Reason for Your Visit: STEMI Attending Provider: Yaw Yao Primary Care Provider: ENRICO BELLAMY Consulting Providers: Rudi Anne Instructions Additional Instructions / Restrictions: You may take your Atorvastatin every morning Discharge Orders/Prescriptions Prescriptions: New furosemide 40 mg Tablet 40 mg PO DAILY Qty: 30 0RF atorvastatin 40 mg Tablet 40 mg PO QHS Qty: 30 0RF clopidogrel 75 mg Tablet 75 mg PO DAILY Qty: 30 0RF aspirin 81 mg Tablet,Delayed Release (Dr/Ec) 81 mg PO DAILY@0800 Qty: 0 0RF isosorbide mononitrate 60 mg Tablet Extended Release 24 Hr 60 mg PO DAILY Qty: 30 0RF potassium chloride 20 mEq Tablet,Er Particles/Crystals 20 meq PO DAILYCM Qty: 30 0RF pantoprazole 40 mg Tablet,Delayed Release (Dr/Ec) 40 mg PO DAILY Qty: 30 0RF nitroglycerin 0.4 mg Tablet, Sublingual 0.4 mg sublingual Q5M PRN (Reason: Chest Pain) Qty: 25 0RF Jardiance 10 mg Tablet 10 mg PO DAILY Qty: 30 0RF tamsulosin 0.4 mg Capsule 0.4 mg PO QHS Qty: 30 0RF metoprolol succinate 50 mg tablet extended release 24 hr 150 mg PO DAILY Qty: 90 0RF Rx Instructions: three tablets every morning spironolactone [Aldactone] 25 mg tablet 25 mg PO DAILY Qty: 30 0RF lisinopril 40 mg tablet 40 mg PO DAILY Qty: 30 0RF donepezil [Aricept] 5 mg tablet 5 mg PO DAILY Qty: 30 0RF Rx Instructions: after one month, increase to 10 mg daily Continued timolol maleate [Timoptic-XE] 1 DROP gel forming solution 1 drp Each Eye QHS dorzolamide 2 % drops 1 drp ophthalmic (eye) TID Patient Comments: INSTILL 1 DROP INTO BOTH EYES 3 TIMES A DAY brimonidine-timolol 0.2-0.5 % drops 1 drp ophthalmic (eye) BID Vyzulta 0.024 % drops 1 drp ophthalmic (eye) DAILY Discontinued isosorbide mononitrate 60 mg tablet extended release 24 hr 60 mg PO DAILY Patient Comments: TAKE 1 TABLET BY MOUTH EVERY DAY IN THE MORNING pantoprazole 40 MG tablet 40 mg PO DAILY nitroglycerin 0.4 MG tablet 0.4 mg sublingual Q5M PRN (Reason: Chest Pain) tamsulosin [Flomax] 0.4 MG capsule 0.4 mg PO QHS benazepril 20 mg tablet 20 mg PO BID atorvastatin 40 mg Tablet 40 mg PO QHS 90 Days Qty: 90 3RF tramadol 50 mg tablet 50 mg PO Q6H PRN (Reason: pain) Qty: 14 0RF No Action metoprolol succinate 100 mg tablet extended release 24 hr 150 mg PO DAILY Rx Instructions: 100 mg QAM, 50 mg QHS oxycodone-acetaminophen 1 EACH tablet 10 mg PO BID PRN (Reason: Pain Score 1-10/10) Patient Comments: TAKE 1 TABLET BY MOUTH EVERY 12 HOURS amlodipine 10 mg tablet 10 mg PO DAILY Patient Comments: TAKE 1 TABLET BY MOUTH EVERY DAY cephalexin 500 mg capsule 500 mg PO TID Qty: 15 0RF Referrals / Follow Up: Ashok Mcbride MD [Med Staff - Active Staff] - 06/26/24 3:30 pm (Appointment is with Jarvis Ramires N.P.) ENRICO BELLAMY CRNP [Primary Care Provider] - 06/26/24 11:00 am () Disposition Disposition (needs filled in before D/C Order can be placed): Home Health Service Charges/Coding Visit Charges Inpatient E&M: 53034 Disch Hosp >30min
--- NOTE | 2024-06-20 14:18 | CASEMGMT ---
Patient has order for discharge. RN CM called and updated [facility], start of care planned for Tuesday, SW added to order and request for CCN referral when discharged from [facility]. Patient discharging on Jardiance, [facility] called copay $11.20. JOHNY QUIROZ called daughter Healther to discuss plans at discharge and updated regarding [facility] start of care and Jardiance copay. Meliza had no further questions or concerns. Discharge plan updated.
--- NOTE | 2024-06-20 16:24 | CASEMGMT ---
PENNY called Laquita at [facility] and asked that they call patient's daughter to set up home health appt. aMría Cox [employer] FARMERSGloria NANCE
[2024-06-20 16:42] VITALS: BP 126/64; PULSE 97; RESP 16; TEMP 36.9; O2SAT 94
== END 2024-06-20 18:32 | disposition home health service (06) | DRG 325 ==
LOC: ED 19:54 → ICU 20:23 → PCU 06-20 12:00 → ICU 06-20 13:30
PROVIDERS: Admitting Provider Hospitalist; Emergency Provider Emergency Medicine; PCP Nurse Practitioner Adult Health; Referring Provider Internal Medicine Cardiovascular Disease; Visit Provider Internal Medicine
DX: T82.867A Thrombosis due to cardiac prosthetic devices, implants and grafts, initial encounter (principal); I21.A9 Other myocardial infarction type; N13.30 Unspecified hydronephrosis; I11.0 Hypertensive heart disease with heart failure; J44.9 Chronic obstructive pulmonary disease, unspecified; T82.855A Stenosis of coronary artery stent, initial encounter; E78.5 Hyperlipidemia, unspecified; I25.10 Atherosclerotic heart disease of native coronary artery without angina pectoris; K21.9 Gastro-esophageal reflux disease without esophagitis; Z87.891 Personal history of nicotine dependence; Z79.891 Long term (current) use of opiate analgesic; Z79.02 Long term (current) use of antithrombotics/antiplatelets; H40.9 Unspecified glaucoma; Z86.16 Personal history of COVID-19; G89.29 Other chronic pain; Z95.5 Presence of coronary angioplasty implant and graft; R31.9 Hematuria, unspecified
CPT/HCPCS: 76000; 80048; 80053; 80061; 83036; 84439; 84443; 84484; 85025; 85027; 85347; 85610; 85730; 88108; 88313; 92610; 92941; 92972; 93005; 93306; 93458; 97110; 97161; 97166; 99285; C1761; J7030; J7040; J7120; Q9957; Q9967; A4216; C1725; C1769; C1874; C1887; C1894; C2617; C8929; C9606; J1940; J2405

== ENCOUNTER 2024-06-21 15:33 | Inpatient (IN) | payer MEDICARE, SELFPAY ==
[2024-06-21] VITALS (13 sets, daily range): BP systolic 70–105; BP diastolic 43–60; PULSE 83–99; RESP 12–23; TEMP 35.8–37.1; O2SAT 94–100; BMI 26.8; BMI 26.9
--- NOTE | 2024-06-21 15:42 | EX.ED.CRITCA ---
HPI History of Present Illness Chief Complaint: [facility] Medical History Wears dentures Wears glasses Cancer Arthritis High cholesterol Migraine headache Injury of head and neck History of IBS Gastric reflux Former smoker Sleep apnea History of stress test History of echocardiogram Hypertension Cardiology follow-up encounter History of irregular heartbeat Osteoarthritis Panic attack MARIE (dyspnea on exertion) MVP (mitral valve prolapse) Left carotid bruit Ganglion cyst Edema of both lower extremities CPAP (continuous positive airway pressure) dependence Chronic pain Cataract Bleeding nevus Back pain Aortic valve disease COVID-19 NSTEMI (non-ST elevated myocardial infarction) PAD (peripheral artery disease) Hyperlipidemia Glaucoma Near syncope Hyperglycemia Tobacco user Gastroesophageal reflux disease COPD (chronic obstructive pulmonary disease) Hx pulmonary embolism HTN (hypertension) Prostate cancer Home Medications ?Medication ?Instructions ?Recorded ?Last Taken ?Type timolol maleate 0.5 % eye gel 1 drp [facility] eye health 07/28/16 01/10/20 History forming solution (Timoptic-XE) oxycodone-acetaminophen 10 mg-325 10 mg PO BID PRN Pain Score 1-05/0303/20/19 01/08/20 History mg tablet amlodipine 10 mg tablet 10 mg PO DAILY high blood pressure 06/30/23 06/15/24 History dorzolamide 2 % eye drops 1 drp ophthalmic (eye) TID glaucoma 06/30/23 Unknown History metoprolol succinate 100 mg 150 mg PO DAILY 07/14/23 06/15/24 History tablet,extended release 24 hr brimonidine 0.2 %-timolol 0.5 % 1 drp ophthalmic (eye) BID 11/07/23 Unknown History eye drops latanoprostene bunod 0.024 % eye 1 drp ophthalmic (eye) DAILY 11/07/23 Unknown History drops (Vyzulta) cephalexin 500 mg capsule 500 mg PO TID #15 caps 06/15/24 Unknown Rx aspirin 81 mg tablet,delayed 81 mg PO DAILY@0800 #0 tabs 06/20/24 Unknown Rx release atorvastatin 40 mg tablet 40 mg PO QHS #30 tabs 06/20/24 Unknown Rx clopidogrel 75 mg tablet 75 mg PO DAILY #30 tabs 06/20/24 Unknown Rx donepezil 5 mg tablet (Aricept) 5 mg PO DAILY #30 tabs 06/20/24 Unknown Rx empagliflozin 10 mg tablet 10 mg PO DAILY #30 tabs 06/20/24 Unknown Rx (Jardiance) furosemide 40 mg tablet 40 mg PO DAILY #30 tabs 06/20/24 Unknown Rx isosorbide mononitrate 60 mg 60 mg PO DAILY #30 tabs 06/20/24 Unknown Rx tablet,extended release 24 hr lisinopril 40 mg tablet 40 mg PO DAILY #30 tabs 06/20/24 Unknown Rx metoprolol succinate 50 mg 150 mg (3 x 50 mg) PO DAILY #90 06/20/24 Unknown Rx tablet,extended release 24 hr tabs nitroglycerin 0.4 mg sublingual 0.4 mg sublingual Q5M PRN Chest 06/20/24 Unknown Rx tablet Pain #25 tabs pantoprazole 40 mg tablet,delayed 40 mg PO DAILY #30 tabs 06/20/24 Unknown Rx release potassium chloride 20 mEq 20 meq PO DAILYCM #30 tabs 06/20/24 Unknown Rx tablet,extended release(part/cryst) spironolactone 25 mg tablet 25 mg PO DAILY #30 tabs 06/20/24 Unknown Rx (Aldactone) tamsulosin 0.4 mg capsule 0.4 mg PO QHS #30 caps 06/20/24 Unknown Rx Allergy/AdvReac Type Severity Reaction Status Date / Time Penicillins Allergy Unknown Verified 06/21/24 15:34 Sulfa (Sulfonamide Allergy Unknown Verified 06/21/24 15:34 Antibiotics) carvedilol AdvReac Severe Respiratory Verified 06/21/24 15:34 distress hydralazine AdvReac Intermediate Dizziness Verified 06/21/24 15:34 hydrocodone (From Vicodin) AdvReac Intermediate Other Verified 06/21/24 15:34 morphine AdvReac Intermediate Shortness Verified 06/21/24 15:34 of breath lorazepam AdvReac Other Verified 06/21/24 15:34 Family History Mother COPD (chronic obstructive pulmonary disease) Father Cancer Myocardial infarction Surgical History History of PTCA (06/18/24) Hx of cardiac catheterization (~11/08/23) Stented coronary artery (~11/08/23) Hx of eye surgery Hx of tonsillectomy Social History household members: none housing: apartment number of children: 1 current occupational status: retired Smoking Status: Former smoker alcohol intake: never substance use type: does not use caffeine: Yes (all day) Type: coffee EXAM Physical Exam Const Vital Signs: 06/21/24 15:34 06/21/24 15:58 06/21/24 16:03 Temperature 96.4 F L 97.9 F Temperature Source Temporal Oral Pulse Rate 99 94 Respiratory Rate 15 20 H Blood Pressure 70/43 L 91/54 L Blood Pressure Mean 52 66 Pulse Ox 100 100 Oxygen Delivery Method Room Air Room Air Room Air 06/21/24 16:33 06/21/24 17:00 06/21/24 17:00 Temperature 97.8 F Temperature Source Oral Pulse Rate 90 94 89 Respiratory Rate 19 H 23 H 15 Blood Pressure 90/50 L 85/45 L 101/53 L Blood Pressure Mean 63 58 69 Pulse Ox 100 95 Oxygen Delivery Method Room Air Room Air 06/21/24 18:00 06/21/24 18:56 06/21/24 20:00 Temperature Temperature Source Pulse Rate 87 89 83 Respiratory Rate 21 H 22 H 21 H Blood Pressure 105/56 L 103/54 L 82/54 L Blood Pressure Mean 72 70 63 Pulse Ox 96 94 94 Oxygen Delivery Method Room Air Room Air Room Air 06/21/24 20:15 Temperature 98.7 F Temperature Source Pulse Rate 83 Respiratory Rate 18 Blood Pressure 96/59 L Blood Pressure Mean 71 Pulse Ox 96 Oxygen Delivery Method MDM MDM MDM Narrative Medical decision making narrative: HISTORY OF PRESENT ILLNESS: 79-year-old male presents with altered mental status. Per the patient's family they noted he had a heart attack on Tuesday. They state a balloon was placed open a block stent. Notes he was discharged last night. Family states he had decreased p.o. intake. Patient denies chest pain, shortness of breath. Denies leg swelling. No some constipation and some abdominal pain. Denies vomiting. REVIEW OF SYSTEMS: Pertinent positives: Weakness, malaise, left-sided flank pain Pertinent negatives: Chest pain, shortness of breath PHYSICAL EXAM: Nursing triage notes reviewed, Vital signs reviewed Constitutional: please see mdm HENT: MMM Eyes: Pupils equal round and reactive to light, Extraocular muscles intact Neck: No stridor, no JVD, full neck ROM Lungs: Clear to auscultation, No wheezing or rales. No increased work of breathing, no conversational dyspnea, no accessory muscle use, no nasal flaring. No respiratory distress noted Heart: Regular rate and rhythm, No murmurs, No rubs and No gallops, 2+ distal pulses (radial, femoral, posterior tibial) in all extremities Abdomen: Soft, there is no tenderness, rigidity, rebound or guarding, no obvious peritoneal signs, no palpable pulsatile abdominal masses, no auscultated abdominal bruit : No CVAT Extremities: No edema Neuro: No new focal neurological deficits, cranial nerves II through XII intact, 5/5 strength in all present extremities. Intact sensation to light touch in all present extremities, 2+ reflexes bilateral patella tendons. Skin: No rash or lesions noted MEDICAL DECISION MAKING: Chief Complaint: Altered mental status External records reviewed: Prior echocardiogram reviewed: Echocardiogram from June 18, 2024 subjective fraction 20% Factors affecting care: CAD, hyperlipidemia, PAD, COPD, PE Social determinants of health: none History obtained from others: Family, EMS Consults: Interventional cardiology (Dr. Decker), internal medicine (Dr. Anne) MDM Narrative: Patient was initially hypotensive with blood pressure 70/43, not tachycardic or febrile. No obvious focal cardiopulmonary maladies noted initial exam. I obtained a broad lab and imaging workup to further elucidate etiology of the patient's complaint. I considered the following differential diagnosis: ACS, anemia, arrhythmia, electrolyte disturbance, intra-abdominal pathology, UTI, infectious her metabolic encephalopathy, ICH ALL IMAGES (IF OBTAINED) HAVE BEEN PERSONALLY REVIEWED AND INTERPRETED BY MYSELF. Initial EKG showed ST elevations in V1, V2 and V3. CODE STEMI called. Spoke to the instant potato processor (Dr. Decker) at ~4:10pm Dr. Decker did not think the patient was suffering from a STEMI and recommended we cancel STEMI activation however he thought potentially the patient had an aneurysm secondary to low EF. Dr. Decker recommendation was to treat the patient medically with aspirin, heparin and obtain the usual workup. At 5:24 PM patient reassessed. Blood pressure 100/53 with a MAP of 60 after 500 cc NS fluid bolus. Heart rate remains in the 90s. Patient states he feels symptomatically better. He has no sign of fluid overload at this time. Still chest pain-free. CBC with marked leukocytosis suggestive of systemic inflammation, no anemia or thrombocytopenia noted Lactate elevated consistent with endorgan hypoperfusion consistent with low blood pressure CMP with hypokalemia similar to prior studies, no evidence of metabolic acidosis or endorgan hypoperfusion with a normal bicarb and anion gap, noted acute kidney injury concerning for dehydration Initial troponin consistent with severe myocardial ischemia as it was greater than 125,000 LFTs with hyperbilirubinemia concerning for shock liver The synthesis the patient's history, physical exam, labs images suggest multiple potential etiologies including STEMI, cardiogenic shock, urosepsis and septic shock. In favor of STEMI the patient had ST elevations in anterior leads. Activated STEMI protocol but veneer drier tailer not feel the patient's symptoms are related to STEMI. Could be related to LV aneurysm. He opted not to active track laborer to take the patient for definitive care. In terms of cardiogenic shock the patient's skin was warm, well-perfused, not cold or mottled. He improved with fluids rather than pressors which makes distributive shock more likely. Patient's urinalysis consistent with infection and he recently had manipulation which makes urosepsis more possible diagnosis in my opinion. In terms of sepsis he was treated with a 30 cc/kg bolus based on ideal body weight given broad-spectrum antibiotics initially. Given the patient's myriad of medical comorbidities, signs of STEMI, elevated troponin, hypotension, urosepsis patient will require admission. Discussed with the internal medicine physician Dr. Anne who agreed to admit the patient to the intensive care unit. The patient and/or family, caregivers express understanding. The patient and/or family, caregivers agrees with the plan. Shared decision making: I will have a discussion with the patient and or visitors regarding risk/benefits of further testing or admission. They will be made aware of of the risk/benefits inherent in this decision they will be given the opportunity to voice understanding. Total critical care time today provided was at least 60 minutes. This excludes separately billable procedures. Critical care time (if documented) is secondary to the patient having high probability of clinically significant/life threatening deterioration in the patient's condition which required my urgent intervention. Impression: 1. Altered mental status 2. Hypotension 3. STEMI 4. Urosepsis 5. Acute kidney injury 6. Hypokalemia 7. Hyperbilirubinemia Dispo: Admit to ICU This note was generated with [employer] dictation software. It may contain incorrect words, spelling, and punctuation that were not noted in review of the chart prior to signing. Lab Data Labs: Laboratory Results - last 24 hr 06/21/24 06/21/24 06/21/24 15:51 15:55 18:25 WBC 34.4 H* RBC 4.16 L Hgb 13.2 Hct 37.9 L MCV 91.1 MCH 31.7 MCHC 34.8 RDW Std Deviation 43.0 RDW Coeff of Suki 13.1 Plt Count 302 MPV 11.3 Immature Gran % (Auto) 1.000 H Neut % (Auto) 80.6 H Lymph % (Auto) 8.2 L [place] % (Auto) 10.0 Eos % (Auto) 0.0 Baso % (Auto) 0.2 Absolute Neuts (auto) 27.7 H Absolute Lymphs (auto) 2.82 Nucleated RBC % 0 Differential Comment SCANNED Diff Path Review May foll PT 16.7 H INR 1.4 APTT 36.6 H Sodium 137 Potassium 3.3 L Chloride 103 Carbon Dioxide 25.0 Anion Gap 9 BUN 30 H Creatinine 2.17 H Estim Creat Clear Calc 24.50 Est GFR (MDRD) Af Amer 38 L Est GFR (MDRD) Non-Af 31 L BUN/Creatinine Ratio 13.8 Glucose 116 H Lactic Acid 2.2 H* Calcium 8.7 Phosphorus 3.5 Magnesium 1.5 L Total Bilirubin 3.00 H AST 76 H ALT 53 Alkaline Phosphatase 72 Troponin I High Sens > 403934 H* Total Protein 7.4 Albumin 3.0 L Globulin 4.4 H Albumin/Globulin Ratio 0.7 L Urine Color Brown Urine Clarity Turbid Urine pH 6.5 Ur Specific [place] 1.020 Urine Protein 500 H Urine Glucose (UA) 250 H Urine Ketones 5 H Urine Occult Blood 250 H Urine Nitrite Negative Urine Bilirubin 1 H Urine Urobilinogen Normal Ur Leukocyte Esterase 500 H Urine RBC > 100 SEEN Urine WBC 10-25 SEEN Ur Squamous Epith Cells 0-5 SEEN Urine Bacteria 1+ Urine Mucus 0 SEEN 06/21/24 20:20 WBC RBC Hgb Hct MCV MCH MCHC RDW Std Deviation RDW Coeff of [place]uki Plt Count MPV Immature Gran % (Auto) Neut % (Auto) Lymph % (Auto) [place] % (Auto) Eos % (Auto) Baso % (Auto) Absolute Neuts (auto) Absolute Lymphs (auto) Nucleated RBC % Differential Comment Diff Path Review PT INR APTT Sodium Potassium Chloride Carbon Dioxide Anion Gap BUN Creatinine Estim Creat Clear Calc Est GFR (MDRD) Af Amer Est GFR (MDRD) Non-Af BUN/Creatinine Ratio Glucose Lactic Acid 1.3 Calcium Phosphorus Magnesium Total Bilirubin AST ALT Alkaline Phosphatase Troponin I High Sens Total Protein Albumin Globulin Albumin/Globulin Ratio Urine Color Urine Clarity Urine pH Ur Specific [place] Urine Protein Urine Glucose (UA) Urine Ketones Urine Occult Blood Urine Nitrite Urine Bilirubin Urine Urobilinogen Ur Leukocyte Esterase Urine RBC Urine WBC Ur Squamous Epith Cells Urine Bacteria Urine Mucus Radiography Diagnostic Testing: Clinical Impression(s) from Imaging Studies Abdomen/Pelvis CT 06/21/24 16:13 IMPRESSION: No acute findings in the abdomen or pelvis. Interval placement of a left ureteral stent without left hydronephrosis. Trace pericardial effusion. Electronically Signed: Charbel Villasenor MD at 17:45 EST , Brain CT 06/21/24 16:13 IMPRESSION: Volume loss with chronic white matter changes. No acute intracranial findings. Electronically Signed: Charbel Villasenor MD at 17:45 EST , Chest X-Ray 06/21/24 16:56 IMPRESSION: No radiographic evidence of acute cardiopulmonary disease. Electronically Signed: Charbel Villasenor MD at 17:30 EST , Discharge Plan Disposition Disposition: Acute Care Hospital [facility] Discharge Date/Time: 06/21/24 20:57
[2024-06-21 16:04] LABS: Absolute Lymphocyte Count 2.82 X10^3/uL (0.83-4.51); Absolute Neutrophil Count 27.7 X10^3/uL (2.0-7.7); Basophil# 0.08 X10^3/uL; Basophil% 0.2 % (0-1); Eosinophil# 0.01 X10^3/uL; Hematocrit 37.9 % (40-54); Hemoglobin 13.2 g/dL (13.0-16.5); Lymphocyte # 2.82 X10^3/ul (0.83-4.51); Lymphocyte % 8.2 % (19-41); Mean Corp Hgb Conc 34.8 g/dL (32-36); Mean Corpuscular Hgb 31.7 pg (27.0-32.0); Mean Corpuscular Volume 91.1 fL (80-94); Mean Platelet Vol. 11.3 fl (6.2-12.0); Monocyte# 3.43 X10^3/uL; NRBC Flagged by Analyzer 0 % (0-5); Neutrophil # 27.73 X10^3/uL (2.7-7.7); Neutrophil % 80.6 % (47-70); POSITIVE COUNT YES; POSITIVE DIFFERENTIAL YES; Platelet Count 302 K/mm3 (150-450); RBC Distribution Width CV 13.1 % (11.6-14.6); Red Blood Count 4.16 M/mm3 (4.6-6.2)
[2024-06-21] MEDS: 0.9% Normal Saline (500mL Bag) 500 ML 999 ML IV (16:08)
--- NOTE | 2024-06-21 16:13 | CT_ITS ---
INDICATION: AMS EXAMINATION: CT BRAIN - CT Head or Brain W/O Contrast Injection TECHNIQUE: Multiple axial images were obtained of the head without intravenous contrast. A radiation dose optimization technique was used for this scan. IV Contrast dosage and agent: None. COMPARISON: 06/01/2023 FINDINGS: BRAIN PARENCHYMA: No intra- or extra-axial hemorrhage. No evidence of acute infarct. No intracranial mass or mass effect. There is preservation of the church/white matter interface. Posterior fossa structures are unremarkable. Stable volume loss with low attenuation of the periventricular white matter typical of chronic small vessel disease. CSF SPACES: Stable. No hydrocephalus. Basal cisterns are patent. CALVARIUM, SKULL BASE, PARANASAL SINUSES AND MASTOID AIR CELLS: Clear. No discrete lytic or blastic abnormalities. CT/Brain/Head without Contrast IMPRESSION: Volume loss with chronic white matter changes. No acute intracranial findings. Electronically Signed: Charbel Villasenor MD at 17:45 EST ,
--- NOTE | 2024-06-21 16:13 | CT_ITS ---
INDICATION: LLQ abdominal pain EXAMINATION: CT ABDOMEN AND PELVIS WITHOUT CONTRAST - CT Abdomen And Pelvis W/O Contrast Injection TECHNIQUE: Helically acquired images were obtained of the abdomen and pelvis without oral or IV contrast. A radiation dose optimization technique was used for this scan. IV Contrast dosage and agent: None. Oral contrast: None. COMPARISON: 05/22/2024 FINDINGS: LOWER CHEST: Stable bibasilar dependent and/or fibrotic changes. No cardiomegaly. Trace pericardial effusion. LIVER: Homogeneous. No concerning focal mass. GALLBLADDER AND BILIARY TREE: No calcified gallstones. No gallbladder distension or wall edema. No intra- or extrahepatic biliary ductal dilation. PANCREAS: No focal cystic or solid mass. SPLEEN: Normal size without focal cystic or solid mass. ADRENAL GLANDS: No nodules. KIDNEYS AND URETERS: Stable bilateral cortical cysts. Nonobstructing right renal calculus. Interval placement left ureteral stent. No hydronephrosis or ureteral calculus along the course of left ureter. PERITONEUM: No ascites or free air. BOWEL: Normal appendix. No stomach or bowel distension. No focal inflammatory change. LYMPH NODES: No enlarged mesenteric or retroperitoneal lymph nodes. VESSELS: Aorta is non-dilated. URINARY BLADDER: Minimally distended. REPRODUCTIVE ORGANS: No pelvic masses. ABDOMINAL WALL: Small fat-containing umbilical hernia. BONES: No acute or aggressive abnormality. CT/Abdomen/Pelvis without Cont IMPRESSION: No acute findings in the abdomen or pelvis. Interval placement of a left ureteral stent without left hydronephrosis. Trace pericardial effusion. Electronically Signed: Charbel Villasenor MD at 17:45 EST ,
[2024-06-21 16:17] LABS: Differential Indicated SCAN CRITERIA MET; White Blood Count 34.4 K/mm3 (4.4-11.0)
[2024-06-21 16:18] LABS: International Normalized Ratio 1.4; Prothrombin Time (Protime)PT. 16.7 SECONDS (11.7-14.9)
[2024-06-21 16:20] LABS: Partial Thromboplast Time 36.6 Seconds (24.1-36.2)
[2024-06-21] MEDS: HEPARIN/D5w 25,000 UNITS 25,000 UNITS/250 ML IV.SOLN. 9 UNITS CONT INF (16:33)
[2024-06-21 16:37] LABS: Differential Comment SCANNED
[2024-06-21 16:43] LABS: Lactic Acid 2.2 mmol/L (0.4-1.9)
--- NOTE | 2024-06-21 16:56 | RAD_ITS ---
INDICATION: Altered mental status EXAMINATION/TECHNIQUE: X-RAY - portable upright AP chest x-ray COMPARISON: 11/07/2023 FINDINGS: LINES/DEVICES: None. LUNGS: No consolidation, edema or effusion. No pneumothorax. MEDIASTINUM AND CARDIOVASCULAR STRUCTURES: Cardiac silhouette stable within normal limits. BONES AND SOFT TISSUES: No acute changes. RAD/Chest 1 View (Portable) IMPRESSION: No radiographic evidence of acute cardiopulmonary disease. Electronically Signed: Charbel Villasenor MD at 17:30 EST ,
[2024-06-21] MEDS: Cefepime HCl 1 GM in 0.9% Normal Saline (50mL MB+) 50 ML IV (17:13)
[2024-06-21 17:17] LABS: ALB/GLOB Ratio 0.7 RATIO (0.9-2.4); AST(SGOT) 76 U/L (15-37); Alanine Aminotransfer ALT/SGPT 53 U/L (16-61); Alkaline Phosphatase 72 U/L (45-117); Anion Gap 9 (5-15); BUN 30 mg/dL (7-18); BUN/Creat Ratio 13.8 RATIO (10-20); Calcium,Total 8.7 mg/dL (8.5-10.1); Chloride 103 mmol/L (98-107); Creatinine, Serum 2.17 mg/dL (0.70-1.30); EST Glomerular Filtration Rate 31 mL/min (>60); Est Glom Filt Rate - Afr Amer 38 mL/min (>60); Globulin 4.4 g/dL (2.2-4.2); Glucose 116 mg/dL (74-106); Potassium 3.3 mmol/L (3.5-5.1); Protein, Total 7.4 g/dL (6.4-8.2); Sodium Level 137 mmol/L (136-145); Troponin-I HS > 125000 pg/mL (3.0-78.0)
[2024-06-21] MEDS: 0.9% Normal Saline (1000mL) 1,000 ML 999 ML IV (17:30)
[2024-06-21] MEDS: Vancomycin HCl 1,250 MG in 0.9% Normal Saline (250mL Bag) 250 ML 167 MG IV (17:32)
[2024-06-21 18:30] LABS: Mucous, Urine 0 SEEN /hpf (<or=2+)
[2024-06-21 18:36] LABS: Color, Urine Brown (Yellow); Glucose, Dipstick 250 mg/dl (Normal); Ketone-Dipstick 5 mg/dl (Negative); Leukocyte Esterase-Dipstick 500 /ul (Negative); Nitrite-Dipstick Negative (Negative); Occult Blood-Urine 250 /ul (Negative); Protein-Dipstick 500 mg/dl (Negative); Urine Clarity Turbid (Clear); Urine Urobilinogen Normal (Normal); Urine pH 6.5 (5.0 - 8.0)
[2024-06-21 19:10] LABS: Urine Bilirubin Dipstick 1 mg/dL (Negative)
[2024-06-21 19:17] LABS: Red Blood Cells-Urine > 100 SEEN /hpf (0-5)
[2024-06-21 19:18] LABS: Bacteria 1+ /hpf (None Seen); Squamous Epithelial Cells - UA 0-5 SEEN /hpf (0-5); White Blood Cells 10-25 SEEN /hpf (0-5)
[2024-06-21 19:58] LABS: Reflex Lactate? Y
--- NOTE | 2024-06-21 20:15 | PCM.HP.STD ---
HPI - General General Date of Admission: 06/21/24 Date of Service: 06/21/24 Chief Complaint: Lightheadedness/dizziness and confusion HPI Narrative TRI FRANK, is a 79 M who presented to [facility] ED on 06/21/2024 with lightheadedness/dizziness and confusion. Patient was hospitalized here from 06/18-06/20 for an anterior STEMI. Was found to have a 99% in-stent restenosis with thrombosis of proximal to mid LAD stent that was placed in October s/p balloon angioplasty. Echo on 06/19 showed newly reduced EF of 20% with anterior, anteroseptal and inferior septal akinesis and stage II diastolic function. Lasix, spironolactone and Jardiance were added to his home regimen prior to discharge. Patient notably had some confusion during that hospitalization and there was concern about him being discharged home, but he did well enough with therapy that he was not a significant that and was discharged home with home health care. Family noted this morning that he seemed more confused and yesterday and was having significant difficulty with any ambulation so they brought him back in for further evaluation. On arrival here his blood pressure was 70/43 and he was mildly tachycardic to the 90s. Labs were notable for WBC count 34, potassium 3.3, creatinine 2.17 (creatinine 1.09 on 06/20), lactate 2.2, total bilirubin 3.00. Troponin level was greater than 125,000. EKG showed ST elevations in anterior leads. STEMI alert was called at that time, however Dr. Pickering discussed with Dr. Decker who noted low concern for STEMI but some concern for LV aneurysm. STEMI was canceled and patient was given aspirin and started on a heparin drip, and hospitalist was contacted for admission. I saw the patient at bedside in the ED, daughter and son-in-law were present. Patient was fatigued appearing but otherwise laying back comfortably in bed and in no acute distress. He had been given 2 L of IV fluids in the ED with good improvement in his blood pressure. He notably had good warmth in his lower extremities on exam and there was no concern for cardiogenic shock. Patient noted that he felt slightly improved now compared to earlier today. He denied any lightheadedness or dizziness at rest. He was able to answer my questions appropriately. He denied any acute pain or discomfort. No other acute concerns. Will be admitted for further management. [facility] Medical History (Updated 06/22/24 @ 01:[address] Rudi Anne, DO) Wears dentures Wears glasses Cancer Arthritis High cholesterol Migraine headache Injury of head and neck History of IBS Gastric reflux Former smoker Sleep apnea History of stress test History of echocardiogram Hypertension Cardiology follow-up encounter History of irregular heartbeat Osteoarthritis Panic attack MARIE (dyspnea on exertion) MVP (mitral valve prolapse) Left carotid bruit Ganglion cyst Edema of both lower extremities CPAP (continuous positive airway pressure) dependence Chronic pain Cataract Bleeding nevus Back pain Aortic valve disease COVID-19 NSTEMI (non-ST elevated myocardial infarction) PAD (peripheral artery disease) Hyperlipidemia Glaucoma Near syncope Hyperglycemia Tobacco user Gastroesophageal reflux disease COPD (chronic obstructive pulmonary disease) Hx pulmonary embolism HTN (hypertension) Prostate cancer Home Medications ?Medication ?Instructions ?Recorded ?Last Taken ?Type timolol maleate 0.5 % eye gel 1 drp [facility] eye health 07/28/16 01/10/20 History forming solution (Timoptic-XE) oxycodone-acetaminophen 10 mg-325 10 mg PO BID PRN Pain Score 1-05/0303/20/19 01/08/20 History mg tablet amlodipine 10 mg tablet 10 mg PO DAILY high blood pressure 06/30/23 06/15/24 History dorzolamide 2 % eye drops 1 drp ophthalmic (eye) TID glaucoma 06/30/23 Unknown History metoprolol succinate 100 mg 150 mg PO DAILY 07/14/23 06/15/24 History tablet,extended release 24 hr brimonidine 0.2 %-timolol 0.5 % 1 drp ophthalmic (eye) BID 11/07/23 Unknown History eye drops latanoprostene bunod 0.024 % eye 1 drp ophthalmic (eye) DAILY 11/07/23 Unknown History drops (Vyzulta) cephalexin 500 mg capsule 500 mg PO TID #15 caps 06/15/24 Unknown Rx aspirin 81 mg tablet,delayed 81 mg PO DAILY@0800 #0 tabs 06/20/24 Unknown Rx release atorvastatin 40 mg tablet 40 mg PO QHS #30 tabs 06/20/24 Unknown Rx clopidogrel 75 mg tablet 75 mg PO DAILY #30 tabs 06/20/24 Unknown Rx donepezil 5 mg tablet (Aricept) 5 mg PO DAILY #30 tabs 06/20/24 Unknown Rx empagliflozin 10 mg tablet 10 mg PO DAILY #30 tabs 06/20/24 Unknown Rx (Jardiance) furosemide 40 mg tablet 40 mg PO DAILY #30 tabs 06/20/24 Unknown Rx isosorbide mononitrate 60 mg 60 mg PO DAILY #30 tabs 06/20/24 Unknown Rx tablet,extended release 24 hr lisinopril 40 mg tablet 40 mg PO DAILY #30 tabs 06/20/24 Unknown Rx metoprolol succinate 50 mg 150 mg (3 x 50 mg) PO DAILY #90 06/20/24 Unknown Rx tablet,extended release 24 hr tabs nitroglycerin 0.4 mg sublingual 0.4 mg sublingual Q5M PRN Chest 06/20/24 Unknown Rx tablet Pain #25 tabs pantoprazole 40 mg tablet,delayed 40 mg PO DAILY #30 tabs 06/20/24 Unknown Rx release potassium chloride 20 mEq 20 meq PO DAILYCM #30 tabs 06/20/24 Unknown Rx tablet,extended release(part/cryst) spironolactone 25 mg tablet 25 mg PO DAILY #30 tabs 06/20/24 Unknown Rx (Aldactone) tamsulosin 0.4 mg capsule 0.4 mg PO QHS #30 caps 06/20/24 Unknown Rx Allergy/AdvReac Type Severity Reaction Status Date / Time Penicillins Allergy Unknown Verified 06/21/24 15:34 Sulfa (Sulfonamide Allergy Unknown Verified 06/21/24 15:34 Antibiotics) carvedilol AdvReac Severe Respiratory Verified 06/21/24 15:34 distress hydralazine AdvReac Intermediate Dizziness Verified 06/21/24 15:34 hydrocodone (From Vicodin) AdvReac Intermediate Other Verified 06/21/24 15:34 morphine AdvReac Intermediate Shortness Verified 06/21/24 15:34 of breath lorazepam AdvReac Other Verified 06/21/24 15:34 Family History Mother COPD (chronic obstructive pulmonary disease) Father Cancer Myocardial infarction Surgical History History of PTCA (06/18/24) Hx of cardiac catheterization (~11/08/23) Stented coronary artery (~11/08/23) Hx of eye surgery Hx of tonsillectomy Social History household members: none housing: apartment number of children: 1 current occupational status: retired Smoking Status: Former smoker alcohol intake: never substance use type: does not use caffeine: Yes (all day) Type: coffee ROS Constitutional Constitutional: Reports fatigue; Denies chills, fever(s) or weakness Eyes Eyes: Denies change in vision Cardiovascular Cardiovascular: Denies chest pain or palpitations Respiratory/Chest Respiratory/Chest: Denies cough, shortness of breath at rest or shortness of breath with exertion Gastrointestinal Gastrointestinal: Denies abdominal pain Neurologic Neurologic: Denies dizziness or headache(s) Vital Signs Vital Signs Vital Signs: 06/21/24 15:34 06/21/24 15:58 06/21/24 16:03 Temperature 96.4 F L 97.9 F Temperature Source Temporal Oral Pulse Rate 99 94 Respiratory Rate 15 20 H Blood Pressure 70/43 L 91/54 L Blood Pressure Mean 52 66 Pulse Ox 100 100 Oxygen Delivery Method Room Air Room Air Room Air 06/21/24 16:33 06/21/24 17:00 06/21/24 17:00 Temperature 97.8 F Temperature Source Oral Pulse Rate 90 94 89 Respiratory Rate 19 H 23 H 15 Blood Pressure 90/50 L 85/45 L 101/53 L Blood Pressure Mean 63 58 69 Pulse Ox 100 95 Oxygen Delivery Method Room Air Room Air 06/21/24 18:00 06/21/24 18:56 06/21/24 20:00 Temperature Temperature Source Pulse Rate 87 89 83 Respiratory Rate 21 H 22 H 21 H Blood Pressure 105/56 L 103/54 L 82/54 L Blood Pressure Mean 72 70 63 Pulse Ox 96 94 94 Oxygen Delivery Method Room Air Room Air Room Air Weight Weight: 75.75 kg Body Mass Index (BMI) 26.8 Physical Exam Const alert, no apparent distress and average body habitus Constitutional Narrative: Elderly male, moderately fatigued, alert and oriented but answering questions with only short appropriate responses, laying back comfortably in bed, in no acute distress. General Appearance: cooperative and comfortable HEENT normocephalic, head/scalp atraumatic, hearing grossly normal bilaterally and nasal mucous membranes and turbinates normal Eyes PERRL, EOMs intact bilaterally and conjunctivae normal Neck full ROM Chest inspection of chest normal Resp normal respiratory effort, normal air movement, no use of accessory muscles and clear to auscultation bilaterally Cardio regular rate, regular rhythm, no murmurs and peripheral pulses 2+ throughout GI normal to inspection, nondistended, normoactive bowel sounds, soft to palpation, non-tender and non-distended Back/Spine normal ROM Extremity normal to inspection, full ROM and no pedal edema Skin no rashes or lesions noted Results Lab / Micro Data 06/21/24 15:51 06/21/24 15:51 Labs: Laboratory Results - last 24 hr 06/21/24 15:51: WBC 34.4 H*, RBC 4.16 L, Hgb 13.2, Hct 37.9 L, MCV 91.1, MCH 31.7, MCHC 34.8, RDW Std Deviation 43.0, RDW Coeff of Suki 13.1, Plt Count 302, MPV 11.3, Immature Gran % (Auto) 1.000 H, Neut % (Auto) 80.6 H, Lymph % (Auto) 8.2 L, [place] % (Auto) 10.0, Eos % (Auto) 0.0, Baso % (Auto) 0.2, Absolute Neuts (auto) 27.7 H, Absolute Lymphs (auto) 2.82, Nucleated RBC % 0, Differential Comment SCANNED, Diff Path Review November, PT 16.7 H, INR 1.4, APTT 36.6 H, Sodium 137, Potassium 3.3 L, Chloride 103, Carbon Dioxide 25.0, Anion Gap 9, BUN 30 H, Creatinine 2.17 H, Estim Creat Clear Calc 24.50, Est GFR (MDRD) Af Amer 38 L, Est GFR (MDRD) Non-Af 31 L, BUN/Creatinine Ratio 13.8, Glucose 116 H, Calcium 8.7, Total Bilirubin 3.00 H, AST 76 H, ALT 53, Alkaline Phosphatase 72, Troponin I High Sens > [id number] H*, Total Protein 7.4, Albumin 3.0 L, Globulin 4.4 H, Albumin/Globulin Ratio 0.7 L 06/21/24 15:55: Lactic Acid 2.2 H* 06/21/24 18:25: Urine Color Brown, Urine Clarity Turbid, Urine pH 6.5, Ur Specific [place] 1.020, Urine Protein 500 H, Urine Glucose (UA) 250 H, Urine Ketones 5 H, Urine Occult Blood 250 H, Urine Nitrite Negative, Urine Bilirubin 1 H, Urine Urobilinogen Normal, Ur Leukocyte Esterase 500 H, Urine RBC > 100 SEEN, Urine WBC 10-25 SEEN, Ur Squamous Epith Cells 0-5 SEEN, Urine Bacteria 1+, Urine Mucus 0 SEEN Imaging Radiology Impression Abdomen/Pelvis CT 06/21/24 16:13 IMPRESSION: No acute findings in the abdomen or pelvis. Interval placement of a left ureteral stent without left hydronephrosis. Trace pericardial effusion. Electronically Signed: Charbel Villasenor MD at 17:45 EST , Brain CT 06/21/24 16:13 IMPRESSION: Volume loss with chronic white matter changes. No acute intracranial findings. Electronically Signed: Charbel Villasenor MD at 17:45 EST , Chest X-Ray 06/21/24 16:56 IMPRESSION: No radiographic evidence of acute cardiopulmonary disease. Electronically Signed: Charbel Villasenor MD at 17:30 EST , Assessment & Plan Assessment/Plan (1) Hypotension: (2) ELLYN (acute kidney injury): PLAN: Plan Patient is an 79-year-old male who presented [facility] ED on 06/21/2024 with lightheadedness/dizziness and confusion. 1. Recent STEMI with concern for LV aneurysm, newly diagnosed HFrEF with hypotension ? Admit under inpatient status to ICU. Cardiology consulted. Suspect low blood pressure on arrival to ED was due to dehydration from recent poor p.o. intake and addition of new medications of Lasix, spironolactone and Jardiance. Very dry appearing on exam and BP improved with 2 L of IV fluid resuscitation. Notably had troponin of greater than 125,000 but troponin was not checked after STEMI and patient denies recurrent chest pain so minimal concern for active MS. Repeat echo ordered to evaluate for LV aneurysm. Will continue home aspirin, Plavix and statin. Holding all home BP medications, appreciate cardiology assistance in determining best medication regimen for patient moving forward. 2. ELLYN with dehydration ? Creatinine 2.17 on admit, up from 1.09 on 06/20. Presumed prerenal from dehydration as noted above. Given heavy IV fluid resuscitation in the ED. Follow-up a.m. BMP and monitor urine output. 3. Concern for UTI with significant leukocytosis ? WBC count 34,000 on admit, notably was 19,000 on 06/19. Suspect worsened WBC count is in part due to hemoconcentration from dehydration. Patient afebrile and no other infectious symptoms at this time. Chest x-ray and CT abdomen pelvis with no concerning findings. UA showed 500 leukocyte esterase, negative nitrites, 1+ bacteria so cannot rule out mild UTI. Has recent history of E faecalis UTI. Will treat with IV Levaquin for now, follow-up urine culture. 4. Elevated LFTs ? Total bilirubin 3.00, AST 76, ALT 53 on admit. Notably T. bili was 0.90 on 06/19. Suspect due to liver hypoperfusion in setting of hypotension as noted above. No liver issues noted on CT abdomen pelvis on admit. Follow-up a.m. LFTs. Treatment as above. 5. Chronic debility with cognitive impairment ? PT/OT/case management consulted. Patient was discharged home with home health care on 06/20. Notably daughter is POA and is very concerned about his ability to manage his medications on discharge. She was asking about possible SNF placement versus additional aid at home for this going forward. Noted that patient did not qualify for SNF given his ability to walk 50+ feet during this recent admission and home health care is only able to come in a few days per week, so they may need to consider additional private help versus help from family and friends for patient at home if he again does not qualify for SNF. Appreciate case management assistance. Continue home donepezil. Chronic medical conditions: ? History of CAD s/p stenting, hypertension, hyperlipidemia: Medication management as above. ? Recent history of left-sided hydronephrosis with ureteral stent placement with hematuria, history of prostate cancer, BPH with obstructive symptoms: Follows with Dr. Salguero. Had cystoscopy with left ureteral stent placement on 06/15. Hemoglobin stable at 13.2 on admit. Continue home Flomax. No inpatient needs, continue outpatient follow-up. ? Glaucoma: Continue home eyedrops. ? GERD: Continue home PPI. DVT prophylaxis: Heparin subcu CODE STATUS: Full code, verified. Verified this with patient and family on admission. Expected disposition: TBD Total clinical time spent by myself addressing the patient's medical issues, reviewing all the data, and collaborating with patient's care team: 75 minutes. Charges/Coding Visit Charges Inpatient E&M: 74418 Init Hosp L3
--- NOTE | 2024-06-21 20:37 | ECHOCS_ITS ---
Reason For Study: CHF Procedure This was a limited 2D transthoracic echocardiogram. The study was technically difficult. Contrast injection was performed. Exam performed portable in ICU/CCU. Left Ventricle Severe LV systolic dysfunction. Estimated LVEF 20 to 25%. Anterior, apical and inferior akinesis. Right Ventricle Normal RV size. Normal systolic function. Atria The left and right atria are normal. Mitral Valve There is Mild focal posterior mitral annular calcification. Trivial mitral valve insufficiency. Tricuspid Valve Normal tricuspid valve. Trivial tricuspid valve insufficiency. Aortic Valve Trisinus/trileaflet aortic valve. Mild focal aortic valve thickening. Pericardium/Pleural Trivial pericardial effusion. Medication Diluted definity 2ml given slow IV push to enhance endocardial definition. MMode/2D Measurements & Calculations LVIDd: 4.4 cm IVSd: 1.0 cm LVAd ap4: 34.3 cm2 LVIDs: 3.4 cm LVPWd: 1.1 cm LVLd ap4: 9.2 cm FS: 21.9 % EDV(MOD-sp4): 106.0 ml EDV(sp4-el): 108.6 ml LVAs ap4: 27.8 cm2 LVLs ap4: 8.9 cm ESV(MOD-sp4): 71.3 ml ESV(sp4-el): 73.6 ml EF(MOD-sp4): 32.7 % EF(sp4-el): 32.3 % SV(MOD-sp4): 34.7 ml SV(sp4-el): 35.0 ml LA dimension(2D): 3.9 cm SI(MOD-sp4): 18.7 ml/m2 ECHO/Echo Limited w/Contrast Interpretation Summary Severe LV systolic dysfunction. Estimated LVEF 20 to 25%. Anterior, apical and inferior akinesis. Mild focal aortic valve thickening. There is Mild focal posterior mitral annular calcification. Ordering Physician: Rudi Anne Referring Physician: Jaime Pickering Performed By: Miriam Bello and Student
--- NOTE | 2024-06-21 20:55 | ED.RN ---
Report called to TEMPLATE MAKERJOHNY Montero, questions/concerns answered
[2024-06-21 21:05] LABS: Magnesium 1.5 mg/dL (1.6-2.6); Phosphorus 3.5 mg/dL (2.5-4.9)
[2024-06-21 21:07] LABS: Lactic Acid 1.3 mmol/L (0.4-1.9)
[2024-06-21] MEDS: Magnesium Sulfate 2 GM in Dextrose 5%-Water (100mL Bag) 100 ML IV (21:45)
[2024-06-21] MEDS: Potassium Chloride Oral Tablet 20 MEQ 40 MEQ PO (22:03)
[2024-06-21] MEDS: Timolol 0.5% 5ML OPTH.BTL 1 DRP OPHTHALMIC (22:10)
[2024-06-21] MEDS: BRIMONIDINE 0.2% 5ML BOTTLE 1 DRP OPHTHALMIC (22:11)
[2024-06-21] MEDS: Atorvastatin Calcium 40 MG Tablet PO (22:11)
[2024-06-21] MEDS: Dorzolamide 2% 10ml Bottle 1 DRP OPHTHALMIC (22:12)
[2024-06-21 23:17] LABS: Partial Thromboplast Time 74.3 Seconds (24.1-36.2)
[2024-06-22] VITALS (25 sets, daily range): BP systolic 82–113; BP diastolic 50–69; PULSE 75–91; RESP 18–24; TEMP 36.4–36.7; O2SAT 93–100; BMI 26.9
[2024-06-22 05:41] LABS: Hematocrit 32.5 % (40-54); Mean Corp Hgb Conc 33.8 g/dL (32-36); Mean Corpuscular Hgb 30.9 pg (27.0-32.0); Mean Corpuscular Volume 91.3 fL (80-94); Mean Platelet Vol. 11.2 fl (6.2-12.0); Platelet Count 251 K/mm3 (150-450); RBC Distribution Width CV 13.1 % (11.6-14.6); RBC Distribution Width SD 43.9 fl (35.1-43.9); Red Blood Count 3.56 M/mm3 (4.6-6.2); White Blood Count 21.9 K/mm3 (4.4-11.0)
[2024-06-22 05:51] LABS: Partial Thromboplast Time 73.2 Seconds (24.1-36.2)
[2024-06-22 05:55] LABS: Anion Gap 8 (5-15); BUN 32 mg/dL (7-18); Calcium,Total 8.2 mg/dL (8.5-10.1); Chloride 109 mmol/L (98-107); Creatinine, Serum 1.23 mg/dL (0.70-1.30); EST Glomerular Filtration Rate 60 mL/min (>60); Est Glom Filt Rate - Afr Amer 73 mL/min (>60); Estimated Creatinine Clearance 43.22 ml/min; Glucose 109 mg/dL (74-106); Potassium 3.7 mmol/L (3.5-5.1); Sodium Level 139 mmol/L (136-145)
--- NOTE | 2024-06-22 07:07 | PN.HOSP_ITS ---
Reason for Visit Reason for Visit: Diagnoses Hypotension, unspecified (06/21/24) Acute kidney failure, unspecified (06/21/24) Subjective Subjective Feeling well presently. Blood pressure drops when he falls asleep but then when he wakes his MAP is around 65. He denies any chest pain, shortness of breath or abdominal pain. States that he has been having hematuria for some time though. Hematuria is been ongoing before his most recent hospitalizations. Objective Data Objective Data Vital Signs: Vital Signs Temp Pulse Resp BP Pulse Ox O2 Del Method O2 Flow Rate 36.4 C L 76 20 H 85/51 L 97 Nasal Cannula 2 06/22/24 04:00 06/22/24 07:00 06/22/24 07:00 06/22/24 07:00 06/22/24 07:00 06/22/24 07:00 06/22/24 07:00 Oxygen Flow Rate (L/min) 2 Oxygen Delivery Method Nasal Cannula Weight: 75.8 kg Body Mass Index (BMI) 26.9 Intake & Output: Intake and Output for Last 24 Hours 06/20/24 06/21/24 06/22/24 23:59 23:59 23:59 Intake Total 51.73 / 51.73 Balance 51.73 / 51.73 Lab / Micro Data 06/22/24 05:37 06/22/24 05:37 Labs: Laboratory Results - last 24 hr 06/21/24 15:51: WBC 34.4 H*, RBC 4.16 L, Hgb 13.2, Hct 37.9 L, MCV 91.1, MCH 31.7, MCHC 34.8, RDW Std Deviation 43.0, RDW Coeff of Suki 13.1, Plt Count 302, MPV 11.3, Immature Gran % (Auto) 1.000 H, Neut % (Auto) 80.6 H, Lymph % (Auto) 8.2 L, [place] % (Auto) 10.0, Eos % (Auto) 0.0, Baso % (Auto) 0.2, Absolute Neuts (auto) 27.7 H, Absolute Lymphs (auto) 2.82, Nucleated RBC % 0, Differential Comment SCANNED, Diff Path Review November, PT 16.7 H, INR 1.4, APTT 36.6 H, Sodium 137, Potassium 3.3 L, Chloride 103, Carbon Dioxide 25.0, Anion Gap 9, BUN 30 H, Creatinine 2.17 H, Estim Creat Clear Calc 24.50, Est GFR (MDRD) Af Amer 38 L, Est GFR (MDRD) Non-Af 31 L, BUN/Creatinine Ratio 13.8, Glucose 116 H, Calcium 8.7, Phosphorus 3.5, Magnesium 1.5 L, Total Bilirubin 3.00 H, AST 76 H, ALT 53, Alkaline Phosphatase 72, Troponin I High Sens > 816312 H*, Total Protein 7.4, A lbumin 3.0 L, Globulin 4.4 H, Albumin/Globulin Ratio 0.7 L 06/21/24 15:55: Lactic Acid 2.2 H* 06/21/24 18:25: Urine Color Brown, Urine Clarity Turbid, Urine pH 6.5, Ur Specific [place] 1.020, Urine Protein 500 H, Urine Glucose (UA) 250 H, Urine Ketones 5 H, Urine Occult Blood 250 H, Urine Nitrite Negative, Urine Bilirubin 1 H, Urine Urobilinogen Normal, Ur Leukocyte Esterase 500 H, Urine RBC > 100 SEEN, Urine WBC 10-25 SEEN, Ur Squamous Epith Cells 0-5 SEEN, Urine Bacteria 1+, Urine Mucus 0 SEEN 06/21/24 20:20: Lactic Acid 1.3 06/21/24 23:00: APTT 74.3 H 06/22/24 05:37: WBC 21.9 H, RBC 3.56 L, Hgb 11.0 L, Hct 32.5 L, MCV 91.3, MCH 30.9, MCHC 33.8, RDW Std Deviation 43.9, RDW Coeff of Suki 13.1, Plt Count 251, MPV 11.2, APTT 73.2 H, Sodium 139, Potassium 3.7, Chloride 109 H, Carbon Dioxide 22.0, Anion Gap 8, BUN 32 H, Creatinine 1.23, Estim Creat Clear Calc 43.22, Est GFR (MDRD) Af Amer 73, Est GFR (MDRD) Non-Af 60, BUN/Creatinine Ratio 26.0 H, G lucose 109 H, Calcium 8.2 L Radiography Diagnostic Testing: Radiology Impression Abdomen/Pelvis CT 06/21/24 16:13 IMPRESSION: No acute findings in the abdomen or pelvis. Interval placement of a left ureteral stent without left hydronephrosis. Trace pericardial effusion. Electronically Signed: Charbel Villasenor MD at 17:45 EST , Brain CT 06/21/24 16:13 IMPRESSION: Volume loss with chronic white matter changes. No acute intracranial findings. Electronically Signed: Charbel Villasenor MD at 17:45 EST , Chest X-Ray 06/21/24 16:56 IMPRESSION: No radiographic evidence of acute cardiopulmonary disease. Electronically Signed: Charbel Villasenor MD at 17:30 EST , Physical Exam Narrative Bedside POCUS: Discussed during bedside POCUS with the patient for his issues and patient was agreeable to proceeding. Indication is for heart failure as well as shock. Parasternal long axis and parasternal short axis were limited due to overlying lung obscuring the images. Substernal view shows hypokinetic LV. Evaluation of the IVC did show collapsibility during respirations. Const alert and no apparent distress HEENT head/scalp atraumatic Resp normal respiratory effort, no retractions, no use of accessory muscles and clear to auscultation bilaterally Cardio regular rate, regular rhythm, S1 normal heart sound and S2 normal heart sound GI normal to inspection, nondistended, normoactive bowel sounds, soft to palpation, non-tender and non-distended Extremity normal to inspection, full ROM and no clubbing, cyanosis or edema Neuro oriented x3 and no focal motor deficits Sensorium / Orientation: awake and alert Psych affect normal Assessment & Plan Assessment/Plan (1) Hypotension: (2) ELLYN (acute kidney injury): PLAN: Plan Shock * hypovolemic +/- septic shock * ongoing. Though his MAP is 65 when he is awake. * Bedside POCUS on the showed collapsibility of the IVC. I feel the patient could benefit from additional IV fluids but would be cautious in regards to giving him too much fluids given his HFrEF. Patient will receive additional 500 cc of normal saline at 150 cc/h. Can continue to evaluate to see my response to that and if he does require additional IV fluids or if he may need to be started on pressors. ELLYN * POA, now resolved * suspect prerenal as improved with IVF Recent STEMI * admission trops >125k. Only had 1 trop during last admission which was 93. * continue ASA, atorvastatin, clopidogrel. Hold lisiopril due to hypotension, ELLYN. hold metoprolol succinate due to hypotension * currently on heparin gtt. * cardiology consulted. HFrEF * echo 06/19 showed an EF 20% with anterior, anteroseptal and inferior septal akinesis. * diuretics held given hypotension, ELLYN. * concern for LV aneurysm, which is why another echo has been ordered. UTI * levofloxacin * follow up UCx. Chronic medical conditions: * Recent history of left-sided hydronephrosis with ureteral stent placement with hematuria, history of prostate cancer, BPH with obstructive symptoms: Follows with Dr. Salguero. Had cystoscopy with left ureteral stent placement on 06/15. Hemoglobin stable at 13.2 on admit. Continue home Flomax. No inpatient needs, continue outpatient follow-up. * Glaucoma: Continue home eyedrops. * GERD: Continue home PPI. DVT prophylaxis: Heparin subcu Greater than 50 minutes of which greater than for percent of time was evaluate the patient, performing bedside POCUS, discussing findings with nursing and plan for additional IV fluids, Charges/Coding Visit Charges Inpatient E&M: 79117 Subs Hosp L3
[2024-06-22] MEDS: Aspirin E.C. 81 MG Tablet PO (07:50)
[2024-06-22] MEDS: Dorzolamide 2% 10ml Bottle 1 DRP OPHTHALMIC ×3 (07:51→20:11)
[2024-06-22] MEDS: 0.9% Normal Saline (500mL Bag) 500 ML 150 ML IV (08:34)
--- NOTE | 2024-06-22 10:28 | CASEMGMT ---
Discharge Planning A list of?SNF providers including quality and resource use data and consistent with the patient's preferred geographic region, medical needs, and insurance network was created in [employer] Guide.? This list was provided to the SW. Jess Oliveira Discharge Planning Asst.
[2024-06-22] MEDS: levoFLOXacin IV 750 MG/150 ML BAG 100 MG IV (10:44)
[2024-06-22] MEDS: BRIMONIDINE 0.2% 5ML BOTTLE 1 DRP OPHTHALMIC ×2 (10:44→20:11)
[2024-06-22] MEDS: Timolol 0.5% 5ML OPTH.BTL 1 DRP OPHTHALMIC ×2 (10:45→20:12)
[2024-06-22] MEDS: Donepezil HCl 5 MG Tablet PO (10:45)
[2024-06-22] MEDS: Clopidogrel Bisulfate 75 MG Tablet PO (10:45)
[2024-06-22] MEDS: Pantoprazole Sodium 40 MG Tablet PO (10:45)
--- NOTE | 2024-06-22 12:14 | CASEMGMT ---
Readmission Chart Review Index: 06/18/24-06/20/24. Dx: STEMI Current Admission: 06/21/24. Dx: Concern for UTI with Sepsis This manager of health talked to the patient and the patient's daughter, Meliza. Meliza is the patient?s healthcare power of consumer attorney. On index admission, the patient was discharged home with [facility]. One of the main concerns regarding this patient is his compliance with taking his home medications. See manager of health's previous notes. This patient was set up with home healthcare to help educate and organize the patient?s medication regimen. However, the home healthcare team could not come to the home to see the patient because the home health did not start until this morning. This manager of health also inquired if the patient was able to get all of his new medications. The patient's daughter states that the patient was unable to get these due to not being discharged until late on Tuesday and then the pharmacy being closed on for Thanksgiving. The patient's daughter states that she went to check on him before this admission and she found the patient sitting in his recliner with increased confusion and mumbling. The patient's daughter states that the patient was having increased difficulty with ambulation as well. The patient's daughter states that the patient was unable to attend any of his follow-up appointments due to them not being until June 26. Moving forward, the patient's daughter would like the patient to go to a penitentiary facility for at least a short-term stay to be able to regain independence before returning home. See physical therapy notes. Per physical therapy and occupational therapy, they are recommending additional therapy for the patient. Per discussion with the patient and the patient's daughter, they are agreeable to a short-term penitentiary facility stay. The patient's daughter thinks that this will help the patient's mobility as well as medication management before returning home. The patient's daughter was also notified that home healthcare can be re-established through the penitentiary facility at the time of discharge. The patient's daughter states understanding and reports that she is comfortable with his plan moving forward. The patient also states that he is comfortable with his plan moving forward and denies any further questions or concerns at this time.
[2024-06-22] MEDS: Ensure Plus High Protein 120 ML LIQUID PO (12:21)
--- NOTE | 2024-06-22 13:09 | CON.PCM.CA_ITS ---
Assessment & Plan Assessment/Plan (1) Elevated troponin: PLAN: Very likely secondary to recent massive anterior ND with presentation on 06/18/2024. Continue medical management. Continue aspirin, clopidogrel. (2) CAD (coronary artery disease): PLAN: Reintroduce low-dose beta-blockers. Aspirin, clopidogrel. (3) Left ventricular systolic dysfunction (LVSD): PLAN: Reintroduce low-dose beta-blockers. Low-dose ACEI. SGLT2 inhibitors. Low-dose diuretics. Monitor creatinine. (4) Hypotension: PLAN: Adjust medications. (5) ELLYN (acute kidney injury): PLAN: Kidney function improved. Monitor. HPI Consult Data Date of Consult: 06/22/24 HPI Narrative Reason for Consultation: Elevated troponin; ECG changes HPI Narrative: This 79-year-old gentleman was admitted on 06/18/2024 with an acute anterior ST elevation myocardial infarction. He was noted to have subtotal occlusion of his previous stent to the proximal LAD. Percutaneous revascularization was performed with balloon angioplasty. His LVEF was noted to be severely impaired with an estimated LVEF of 15 to 20%. He was only discharged home 2 days ago. Patient was brought to the emergency room with concern for mental status changes by family. He also complained of lightheadedness. No chest pain or shortness of breath reported. In the emergency room, EKG showed changes concerning for NSTEMI. However these were more compatible with his recent anterior ND with LV aneurysmal formation. This morning patient is up in the chair. He is very confident that he did not have any recurrent chest discomfort since his discharge from the hospital. No shortness of breath. No orthopnea or PND. [facility] Medical History (Updated 06/22/24 @ 13:[address] Marilu Decker MD) Wears dentures Wears glasses Cancer Arthritis High cholesterol Migraine headache Injury of head and neck History of IBS Gastric reflux Former smoker Sleep apnea History of stress test History of echocardiogram Hypertension Cardiology follow-up encounter History of irregular heartbeat Osteoarthritis Panic attack MARIE (dyspnea on exertion) MVP (mitral valve prolapse) Left carotid bruit Ganglion cyst Edema of both lower extremities CPAP (continuous positive airway pressure) dependence Chronic pain Cataract Bleeding nevus Back pain Aortic valve disease COVID-19 NSTEMI (non-ST elevated myocardial infarction) PAD (peripheral artery disease) Hyperlipidemia Glaucoma Near syncope Hyperglycemia Tobacco user Gastroesophageal reflux disease COPD (chronic obstructive pulmonary disease) Hx pulmonary embolism HTN (hypertension) Prostate cancer Home Medications ?Medication ?Instructions ?Recorded ?Last Taken ?Type timolol maleate 0.5 % eye gel 1 drp [facility] eye health 07/28/16 01/10/20 History forming solution (Timoptic-XE) oxycodone-acetaminophen 10 mg-325 10 mg PO BID PRN Pain Score 1-05/0303/20/19 01/08/20 History mg tablet amlodipine 10 mg tablet 10 mg PO DAILY high blood pressure 06/30/23 06/15/24 History dorzolamide 2 % eye drops 1 drp ophthalmic (eye) TID glaucoma 06/30/23 Unknown History metoprolol succinate 100 mg 150 mg PO DAILY 07/14/23 06/15/24 History tablet,extended release 24 hr brimonidine 0.2 %-timolol 0.5 % 1 drp ophthalmic (eye) BID 11/07/23 Unknown History eye drops latanoprostene bunod 0.024 % eye 1 drp ophthalmic (eye) DAILY 11/07/23 Unknown History drops (Vyzulta) cephalexin 500 mg capsule 500 mg PO TID #15 caps 06/15/24 Unknown Rx aspirin 81 mg tablet,delayed 81 mg PO DAILY@0800 #0 tabs 06/20/24 Unknown Rx release atorvastatin 40 mg tablet 40 mg PO QHS #30 tabs 06/20/24 Unknown Rx clopidogrel 75 mg tablet 75 mg PO DAILY #30 tabs 06/20/24 Unknown Rx donepezil 5 mg tablet (Aricept) 5 mg PO DAILY #30 tabs 06/20/24 Unknown Rx empagliflozin 10 mg tablet 10 mg PO DAILY #30 tabs 06/20/24 Unknown Rx (Jardiance) furosemide 40 mg tablet 40 mg PO DAILY #30 tabs 06/20/24 Unknown Rx isosorbide mononitrate 60 mg 60 mg PO DAILY #30 tabs 06/20/24 Unknown Rx tablet,extended release 24 hr lisinopril 40 mg tablet 40 mg PO DAILY #30 tabs 06/20/24 Unknown Rx metoprolol succinate 50 mg 150 mg (3 x 50 mg) PO DAILY #90 06/20/24 Unknown Rx tablet,extended release 24 hr tabs nitroglycerin 0.4 mg sublingual 0.4 mg sublingual Q5M PRN Chest 06/20/24 Unknown Rx tablet Pain #25 tabs pantoprazole 40 mg tablet,delayed 40 mg PO DAILY #30 tabs 06/20/24 Unknown Rx release potassium chloride 20 mEq 20 meq PO DAILYCM #30 tabs 06/20/24 Unknown Rx tablet,extended release(part/cryst) spironolactone 25 mg tablet 25 mg PO DAILY #30 tabs 06/20/24 Unknown Rx (Aldactone) tamsulosin 0.4 mg capsule 0.4 mg PO QHS #30 caps 06/20/24 Unknown Rx Allergy/AdvReac Type Severity Reaction Status Date / Time Penicillins Allergy Unknown Verified 06/21/24 15:34 Sulfa (Sulfonamide Allergy Unknown Verified 06/21/24 15:34 Antibiotics) carvedilol AdvReac Severe Respiratory Verified 06/21/24 15:34 distress hydralazine AdvReac Intermediate Dizziness Verified 06/21/24 15:34 hydrocodone (From Vicodin) AdvReac Intermediate Other Verified 06/21/24 15:34 morphine AdvReac Intermediate Shortness Verified 06/21/24 15:34 of breath lorazepam AdvReac Other Verified 06/21/24 15:34 Family History Mother COPD (chronic obstructive pulmonary disease) Father Cancer Myocardial infarction Surgical History History of PTCA (06/18/24) Hx of cardiac catheterization (~11/08/23) Stented coronary artery (~11/08/23) Hx of eye surgery Hx of tonsillectomy Social History household members: none housing: apartment number of children: 1 current occupational status: retired Smoking Status: Former smoker alcohol intake: never substance use type: does not use caffeine: Yes (all day) Type: coffee Physical Exam Narrative Comfortable. No apparent distress. Heart sounds 1 and 2 noted. S3 gallop noted. Chest clear to auscultation. Alert oriented. No ankle edema. Risk Stratification Risk Stratification Applicable: No Objective Data Vital Signs: Vital Signs Temp Pulse Resp BP Pulse Ox O2 Del Method O2 Flow Rate 97.9 F 90 22 H 102/51 L 97 Room Air 2 06/22/24 08:00 06/22/24 10:00 06/22/24 10:00 06/22/24 10:00 06/22/24 10:00 06/22/24 12:26 06/22/24 10:00 Oxygen Flow Rate (L/min) 2 Oxygen Delivery Method Room Air Weight: 167 lb 1.766 oz Body Mass Index (BMI) 26.9 Intake & Output: Intake and Output for Last 24 Hours 06/20/24 06/21/24 06/22/24 23:59 23:59 23:59 Intake Total 51.73 / 51.73 Output Total 100 / 100 Balance -48.27 / -48.27 Lab / Micro Data Attestation: I reviewed the patient's lab results. 06/22/24 05:37 06/22/24 05:37 Labs: Laboratory Results - last 24 hr 06/21/24 15:51: WBC 34.4 H*, RBC 4.16 L, Hgb 13.2, Hct 37.9 L, MCV 91.1, MCH 31.7, MCHC 34.8, RDW Std Deviation 43.0, RDW Coeff of Suki 13.1, Plt Count 302, MPV 11.3, Immature Gran % (Auto) 1.000 H, Neut % (Auto) 80.6 H, Lymph % (Auto) 8.2 L, Vance % (Auto) 10.0, Eos % (Auto) 0.0, Baso % (Auto) 0.2, Absolute Neuts (auto) 27.7 H, Absolute Lymphs (auto) 2.82, Nucleated RBC % 0, Differential Comment SCANNED, Diff Path Review November, PT 16.7 H, INR 1.4, APTT 36.6 H, Sodium 137, Potassium 3.3 L, Chloride 103, Carbon Dioxide 25.0, Anion Gap 9, BUN 30 H, Creatinine 2.17 H, Estim Creat Clear Calc 24.50, Est GFR (MDRD) Af Amer 38 L, Est GFR (MDRD) Non-Af 31 L, BUN/Creatinine Ratio 13.8, Glucose 116 H, Calcium 8.7, Phosphorus 3.5, Magnesium 1.5 L, Total Bilirubin 3.00 H, AST 76 H, ALT 53, Alkaline Phosphatase 72, Troponin I High Sens > [id number] H*, Total Protein 7.4, A lbumin 3.0 L, Globulin 4.4 H, Albumin/Globulin Ratio 0.7 L 06/21/24 15:55: Lactic Acid 2.2 H* 06/21/24 18:25: Urine Color Brown, Urine Clarity Turbid, Urine pH 6.5, Ur Specific [place] 1.020, Urine Protein 500 H, Urine Glucose (UA) 250 H, Urine Ketones 5 H, Urine Occult Blood 250 H, Urine Nitrite Negative, Urine Bilirubin 1 H, Urine Urobilinogen Normal, Ur Leukocyte Esterase 500 H, Urine RBC > 100 SEEN, Urine WBC 10-25 SEEN, Ur Squamous Epith Cells 0-5 SEEN, Urine Bacteria 1+, Urine Mucus 0 SEEN 06/21/24 20:20: Lactic Acid 1.3 06/21/24 23:00: APTT 74.3 H 06/22/24 05:37: WBC 21.9 H, RBC 3.56 L, Hgb 11.0 L, Hct 32.5 L, MCV 91.3, MCH 30.9, MCHC 33.8, RDW Std Deviation 43.9, RDW Coeff of Suki 13.1, Plt Count 251, MPV 11.2, APTT 73.2 H, Sodium 139, Potassium 3.7, Chloride 109 H, Carbon Dioxide 22.0, Anion Gap 8, BUN 32 H, Creatinine 1.23, Estim Creat Clear Calc 43.22, Est GFR (MDRD) Af Amer 73, Est GFR (MDRD) Non-Af 60, BUN/Creatinine Ratio 26.0 H, G lucose 109 H, Calcium 8.2 L 06/22/24 12:15: APTT Cancelled Rhythm Strip Rhythm Strip: Sinus Rhythm Cardiology Labs/Tests 06/21/24 15:51: WBC 34.4 H*, RBC 4.16 L, Hgb 13.2, Hct 37.9 L, MCV 91.1, MCH 31.7, MCHC 34.8, Plt Count 302, MPV 11.3, Immature Gran % (Auto) 1.000 H, Neut % (Auto) 80.6 H, Lymph % (Auto) 8.2 L, Vance % (Auto) 10.0, Eos % (Auto) 0.0, Baso % (Auto) 0.2, Absolute Neuts (auto) 27.7 H, Nucleated RBC % 0, PT 16.7 H, INR 1.4, APTT 36.6 H, Sodium 137, Potassium 3.3 L, Chloride 103, Carbon Dioxide 25.0, Anion Gap 9, BUN 30 H, Creatinine 2.17 H, Est GFR (MDRD) Af Amer 38 L, Est GFR (MDRD) Non-Af 31 L, BUN/Creatinine Ratio 13.8, Glucose 116 H, Calcium 8.7, Phosphorus 3.5, Magnesium 1.5 L, Total Bilirubin 3.00 H 06/21/24 15:55: Lactic Acid 2.2 H* 06/21/24 18:25: Urine Color Brown, Urine Clarity Turbid, Urine pH 6.5, Ur Specific [place] 1.020, Urine Protein 500 H, Urine Glucose (UA) 250 H, Urine Ketones 5 H, Urine Occult Blood 250 H, Urine Nitrite Negative, Urine Bilirubin 1 H, Urine Urobilinogen Normal, Ur Leukocyte Esterase 500 H, Urine RBC > 100 SEEN, Urine WBC 10-25 SEEN 06/21/24 20:20: Lactic Acid 1.3 06/21/24 23:00: APTT 74.3 H 06/22/24 05:37: WBC 21.9 H, RBC 3.56 L, Hgb 11.0 L, Hct 32.5 L, MCV 91.3, MCH 30.9, MCHC 33.8, Plt Count 251, MPV 11.2, APTT 73.2 H, Sodium 139, Potassium 3.7, Chloride 109 H, Carbon Dioxide 22.0, Anion Gap 8, BUN 32 H, Creatinine 1.23, Est GFR (MDRD) Af Amer 73, Est GFR (MDRD) Non-Af 60, BUN/Creatinine Ratio 26.0 H, Glucose 109 H, Calcium 8.2 L 06/22/24 12:15: APTT Cancelled Rhythm: Sinus rhythm EKG: Sinus rhythm with changes compatible with his recent anterior ND with likely LV aneurysm. ECHO: Estimated LVEF 20 to 25%. Compared to the previous echocardiogram, the LVEF appears marginally improved. Stress Test: Cardiac Cath: PCI: CT Surgery: Holter monitor: EPS: PPM: CXR: Chest CT Scan: Radiography Diagnostic Testing: Radiology Impression Abdomen/Pelvis CT 06/21/24 16:13 IMPRESSION: No acute findings in the abdomen or pelvis. Interval placement of a left ureteral stent without left hydronephrosis. Trace pericardial effusion. Electronically Signed: Charbel Villasenor MD at 17:45 EST , Brain CT 06/21/24 16:13 IMPRESSION: Volume loss with chronic white matter changes. No acute intracranial findings. Electronically Signed: Charbel Villasenor MD at 17:45 EST , Chest X-Ray 06/21/24 16:56 IMPRESSION: No radiographic evidence of acute cardiopulmonary disease. Electronically Signed: Charbel Villasenor MD at 17:30 EST , Echocardiogram 06/21/24 20:37 Interpretation Summary Severe LV systolic dysfunction. Estimated LVEF 20 to 25%. Anterior, apical and inferior akinesis. Mild focal aortic valve thickening. There is Mild focal posterior mitral annular calcification. Ordering Physician: Rudi Anne Referring Physician: Jaime Pickering Performed By: Miriam Bello and Student
[2024-06-22] MEDS: Ondansetron 4 MG/2 ML Vial IV ×2 (13:42→22:49)
[2024-06-22 13:47] LABS: Pathologist Review Reviewed
[2024-06-22] MEDS: Empagliflozin 10 MG Tablet PO (14:34)
--- NOTE | 2024-06-22 15:25 | CASEMGMT ---
Addendum entered by Mendy Palomino 06/22/24 15:48: Social Work- SW met with pt who had just returned to bed from the restroom. Pt was feeling nauseous, but agreeable to meeting with SW. SW introduced self and role and shared conversation with pt dtr, providing education on SNF and insurance coverage. Pt agreeable to [facility]. SW will remain available to follow. FLORA Martinez Original Note: Social Work- SW spoke with pt dtr who reports that no SNF list is needed, as the FOC is [facility]. Pt dtr inquired about medicaid; SW completed referral to [facility]. SW provided information and education on SNF process and insurance coverage. Pt dtr reports that pt was set up a year ago with [facility] then refused services, stating that he did not need assistance. PENNY advised [facility] that [facility] is FOC. PENNY left SNF list in pt room in the vent that additional choices would be required. FLORA Martinez
--- NOTE | 2024-06-22 16:04 | CASEMGMT ---
Addendum entered by Jess Oliveira 06/25/24 09:14: Updates sent to [facility]. Jess Oliveira DC Planning Asst. Original Note: Discharge Planning Referral sent via [facility] to [facility]. Jess Oliveira DC Planning Asst.
[2024-06-22] MEDS: Tamsulosin HCl 0.4 MG Capsule PO (20:11)
[2024-06-22] MEDS: Atorvastatin Calcium 40 MG Tablet PO (20:11)
[2024-06-22] MEDS: oxyCODONE 5 MG Tablet 10 MG PO (22:49)
[2024-06-23] VITALS (17 sets, daily range): BP systolic 95–117; BP diastolic 55–82; PULSE 87–106; RESP 13–20; TEMP 36.2–36.9; O2SAT 93–99; BMI 27.2
[2024-06-23 03:29] LABS: Absolute Lymphocyte Count 1.93 X10^3/uL (0.83-4.51); Basophil# 0.03 X10^3/uL; Basophil% 0.2 % (0-1); Eosinophil# 0.44 X10^3/uL; Eosinophils% 2.6 % (0-5); Hematocrit 33.4 % (40-54); Hemoglobin 11.2 g/dL (13.0-16.5); Lymphocyte # 1.93 X10^3/ul (0.83-4.51); Lymphocyte % 11.4 % (19-41); Mean Corp Hgb Conc 33.5 g/dL (32-36); Mean Corpuscular Hgb 31.4 pg (27.0-32.0); Mean Corpuscular Volume 93.6 fL (80-94); Monocyte# 1.48 X10^3/uL; Monocyte% 8.7 % (0-10); NRBC Flagged by Analyzer 0 % (0-5); Neutrophil # 12.96 X10^3/uL (2.7-7.7); Neutrophil % 76.5 % (47-70); Platelet Count 267 K/mm3 (150-450); RBC Distribution Width CV 13.2 % (11.6-14.6); RBC Distribution Width SD 45.2 fl (35.1-43.9); Red Blood Count 3.57 M/mm3 (4.6-6.2)
[2024-06-23 03:49] LABS: Anion Gap 6 (5-15); BUN 25 mg/dL (7-18); BUN/Creat Ratio 27.6 RATIO (10-20); Chloride 108 mmol/L (98-107); Creatinine, Serum 0.91 mg/dL (0.70-1.30); EST Glomerular Filtration Rate 86 mL/min (>60); Est Glom Filt Rate - Afr Amer 104 mL/min (>60); Estimated Creatinine Clearance 58.42 ml/min; Glucose 101 mg/dL (74-106); Potassium 3.6 mmol/L (3.5-5.1); Sodium Level 137 mmol/L (136-145)
[2024-06-23] MEDS: Dorzolamide 2% 10ml Bottle 1 DRP OPHTHALMIC ×3 (06:39→22:27)
--- NOTE | 2024-06-23 07:03 | PN.HOSP_ITS ---
Reason for Visit Reason for Visit: Diagnoses Atherosclerotic heart disease of [place] coronary artery without angina pectoris (06/21/24) Other ill-defined heart diseases (06/21/24) Hypotension, unspecified (06/21/24) Acute kidney failure, unspecified (06/21/24) Other specified abnormal findings of blood chemistry (06/21/24) Subjective Subjective Feeling ok. BP has remained stable. Objective Data Objective Data Vital Signs: Vital Signs Temp Pulse Resp BP Pulse Ox O2 Del Method O2 Flow Rate 36.2 C L 92 18 106/57 L 95 Nasal Cannula 2 06/23/24 04:00 06/23/24 06:00 06/23/24 06:00 06/23/24 06:00 06/23/24 06:00 06/23/24 06:00 06/23/24 06:00 Oxygen Flow Rate (L/min) 2 Oxygen Delivery Method Nasal Cannula Weight: 76.5 kg Body Mass Index (BMI) 27.2 Intake & Output: Intake and Output for Last 24 Hours 06/21/24 06/22/24 06/23/24 23:59 23:59 23:59 Intake Total 756.21 / 966.21 210 / 210 Output Total 100 / 100 Balance 656.21 / 866.21 210 / 210 Lab / Micro Data 06/23/24 03:18 06/23/24 03:18 Labs: Laboratory Results - last 24 hr 06/21/24 15:51: Diff Path Review Reviewed 06/22/24 12:15: APTT Cancelled 06/22/24 13:30: APTT 59.0 H 06/23/24 03:18: WBC 17.0 H, RBC 3.57 L, Hgb 11.2 L, Hct 33.4 L, MCV 93.6, MCH 31.4, MCHC 33.5, RDW Std Deviation 45.2 H, RDW Coeff of Suki 13.2, Plt Count 267, MPV 11.0, Immature Gran % (Auto) 0.600, Neut % (Auto) 76.5 H, Lymph % (Auto) 11.4 L, [place] % (Auto) 8.7, Eos % (Auto) 2.6, Baso % (Auto) 0.2, Absolute Neuts (auto) 13.0 H, Absolute Lymphs (auto) 1.93, Nucleated RBC % 0, Sodium 137, Potassium 3.6, Chloride 108 H, Carbon Dioxide 23.0, Anion Gap 6, BUN 25 H, Creatinine 0.91, Estim Creat Clear Calc 58.42, Est GFR (MDRD) Af Amer 104, Est GFR (MDRD) Non-Af 86, BUN/Creatinine Ratio 27.6 H, Glucose 101, Calcium 8.0 L Radiography Diagnostic Testing: Radiology Impression Echocardiogram 06/21/24 20:37 Interpretation Summary Severe LV systolic dysfunction. Estimated LVEF 20 to 25%. Anterior, apical and inferior akinesis. Mild focal aortic valve thickening. There is Mild focal posterior mitral annular calcification. Ordering Physician: Rudi Anne Referring Physician: Jaime Pickering Performed By: Miriam Bello and Student Rhythm Strip Rhythm Strip: Sinus Rhythm Physical Exam Const alert and no apparent distress HEENT head/scalp atraumatic and moist oral mucous membranes Resp normal respiratory effort, no retractions, no use of accessory muscles and clear to auscultation bilaterally Cardio regular rate, regular rhythm, S1 normal heart sound, S2 normal heart sound and no murmurs GI normal to inspection, nondistended, normoactive bowel sounds, soft to palpation, non-tender and non-distended Neuro Sensorium / Orientation: awake, alert, oriented to person, oriented to place and oriented to time Assessment & Plan Assessment/Plan (1) Hypotension: (2) ELLYN (acute kidney injury): PLAN: Plan Shock * resolved * hypovolemic +/- septic shock +/- iatrogenic as patient was discharged with isosorbide 60/d, metoprolol succinate 50/d (admission MAR has 150/d), lisinopril 40/d. No action was taken on amlodipine 10/d (not continued nor discontinued) * Bedside POCUS on the showed collapsibility of the IVC. I feel the patient could benefit from additional IV fluids but would be cautious in regards to giving him too much fluids given his HFrEF. Patient will receive additional 500 cc of normal saline at 150 cc/h. Can continue to evaluate to see my response to that and if he does require additional IV fluids or if he may need to be started on pressors. * Infectious work up thus far has been negative, but highly concerning for a bacteria infection given severe leukocytosis upon presentation. * Will slowly add medications back, but at a lower dose. Though, I would not resume amlodipine at this time. Restarted on low doses of Metoprolol succinate and lisinopril (25 and 2.5, respectively) ELLYN * POA, now resolved * suspect prerenal as improved with IVF Recent STEMI * admission trops >125k. Only had 1 trop during last admission which was 93. * continue ASA, atorvastatin, clopidogrel. Hold lisiopril due to hypotension, ELLYN. hold metoprolol succinate due to hypotension * cardiology consulted felt troponins related with recent STEMI not a new event. Heparin gtt dc'd. HFrEF, chronic. * echo 06/19 showed an EF 20% with anterior, anteroseptal and inferior septal akinesis. * repeat echo on 06/22 shows an EF 20-25%. Anterior, apical and inferior akinesis * diuretics held given hypotension, ELLYN. UTI, suspected. * levofloxacin * UCx, thus far shows no organisms. Will dc abx and observe Chronic medical conditions: * Recent history of left-sided hydronephrosis with ureteral stent placement with hematuria, history of prostate cancer, BPH with obstructive symptoms: Follows with Dr. Salguero. Had cystoscopy with left ureteral stent placement on 06/15. Hemoglobin stable at 13.2 on admit. Continue home Flomax. No inpatient needs, continue outpatient follow-up. * Glaucoma: Continue home eyedrops. * GERD: Continue home PPI. DVT prophylaxis: enoxaparin (correction, was not on SQ heparin as mentioned previously, but was anticoaulated) Transfer to PCU. Charges/Coding Visit Charges Inpatient E&M: 66127 Subs Hosp L2
[2024-06-23] MEDS: Donepezil HCl 5 MG Tablet PO (09:09)
[2024-06-23] MEDS: Clopidogrel Bisulfate 75 MG Tablet PO (09:09)
[2024-06-23] MEDS: Potassium Chloride Oral Tablet 10 MEQ PO (09:09)
[2024-06-23] MEDS: Furosemide 20 MG Tablet PO (09:09)
[2024-06-23] MEDS: Aspirin E.C. 81 MG Tablet PO (09:10)
[2024-06-23] MEDS: Empagliflozin 10 MG Tablet PO (09:11)
[2024-06-23] MEDS: Pantoprazole Sodium 40 MG Tablet PO (09:11)
--- NOTE | 2024-06-23 10:17 | PN.CARD_ITS ---
Subjective Subjective Denies any complaints. No chest pains or shortness of breath. Objective Data Comfortable. Lying flat in the bed. No respiratory distress. No ankle edema. Vital Signs: Vital Signs Temp Pulse Resp BP Pulse Ox O2 Del Method O2 Flow Rate 97.9 F 106 H 13 95/72 97 Nasal Cannula 2 06/23/24 08:00 06/23/24 09:00 06/23/24 09:00 06/23/24 09:00 06/23/24 09:00 06/23/24 09:00 06/23/24 09:00 Oxygen Flow Rate (L/min) 2 Oxygen Delivery Method Nasal Cannula Weight: 168 lb 10.458 oz Body Mass Index (BMI) 27.2 Intake & Output: Intake and Output for Last 24 Hours 06/21/24 06/22/24 06/23/24 23:59 23:59 23:59 Intake Total 756.21 / 966.21 210 / 210 Output Total 100 / 100 Balance 656.21 / 866.21 210 / 210 Lab / Micro Data 06/23/24 03:18 06/23/24 03:18 Labs: Laboratory Results - last 24 hr 06/21/24 15:51: Diff Path Review Reviewed 06/22/24 12:15: APTT Cancelled 06/22/24 13:30: APTT 59.0 H 06/23/24 03:18: WBC 17.0 H, RBC 3.57 L, Hgb 11.2 L, Hct 33.4 L, MCV 93.6, MCH 31.4, MCHC 33.5, RDW Std Deviation 45.2 H, RDW Coeff of Suki 13.2, Plt Count 267, MPV 11.0, Immature Gran % (Auto) 0.600, Neut % (Auto) 76.5 H, Lymph % (Auto) 11.4 L, [place] % (Auto) 8.7, Eos % (Auto) 2.6, Baso % (Auto) 0.2, Absolute Neuts (auto) 13.0 H, Absolute Lymphs (auto) 1.93, Nucleated RBC % 0, Sodium 137, Potassium 3.6, Chloride 108 H, Carbon Dioxide 23.0, Anion Gap 6, BUN 25 H, Creatinine 0.91, Estim Creat Clear Calc 58.42, Est GFR (MDRD) Af Amer 104, Est GFR (MDRD) Non-Af 86, BUN/Creatinine Ratio 27.6 H, Glucose 101, Calcium 8.0 L Micro: Microbiology 06/21/24 18:25 Urine, Catheterized Urine Culture - Preliminary Culture exhibits no growth. Rhythm Strip Rhythm Strip: Sinus Rhythm Cardiology Labs/Tests 06/22/24 12:15: APTT Cancelled 06/22/24 13:30: APTT 59.0 H 06/23/24 03:18: WBC 17.0 H, RBC 3.57 L, Hgb 11.2 L, Hct 33.4 L, MCV 93.6, MCH 31.4, MCHC 33.5, Plt Count 267, MPV 11.0, Immature Gran % (Auto) 0.600, Neut % (Auto) 76.5 H, Lymph % (Auto) 11.4 L, [place] % (Auto) 8.7, Eos % (Auto) 2.6, Baso % (Auto) 0.2, Absolute Neuts (auto) 13.0 H, Nucleated RBC % 0, Sodium 137, Potassium 3.6, Chloride 108 H, Carbon Dioxide 23.0, Anion Gap 6, BUN 25 H, Creatinine 0.91, Est GFR (MDRD) Af Amer 104, Est GFR (MDRD) Non-Af 86, B UN/Creatinine Ratio 27.6 H, Glucose 101, Calcium 8.0 L Rhythm: EKG: ECHO: Stress Test: Cardiac Cath: PCI: CT Surgery: Holter monitor: EPS: PPM: CXR: Chest CT Scan: Radiography Diagnostic Testing: Radiology Impression Echocardiogram 06/21/24 20:37 Interpretation Summary Severe LV systolic dysfunction. Estimated LVEF 20 to 25%. Anterior, apical and inferior akinesis. Mild focal aortic valve thickening. There is Mild focal posterior mitral annular calcification. Ordering Physician: Rudi Anne Referring Physician: Jaime Pickering Performed By: Miriam Bello and Student Assessment & Plan Assessment/Plan (1) Elevated troponin: PLAN: Very likely secondary to recent massive anterior [place] with presentation on 06/18/2024. Continue medical management. Continue aspirin, clopidogrel. (2) CAD (coronary artery disease): PLAN: Beta-blockers, aspirin, clopidogrel. (3) Left ventricular systolic dysfunction (LVSD): PLAN: Reintroduce low-dose beta-blockers. Low-dose ACEI. SGLT2 inhibitors. Low-dose diuretics. Monitor creatinine. (4) Hypotension: PLAN: Adjust medications. (5) ELLYN (acute kidney injury): PLAN: Kidney function improved. Monitor. PLAN: Plan Restarting on beta-blockers, ALONDRA inhibitors and diuretics today. Monitor hemodynamics. If remains stable and creatinine also remains stable, then may discharge home in the morning from a cardiac standpoint.
[2024-06-23] MEDS: Metoprolol(XL)Succ 25 MG Tablet PO (10:22)
[2024-06-23] MEDS: BRIMONIDINE 0.2% 5ML BOTTLE 1 DRP OPHTHALMIC ×2 (10:22→22:25)
[2024-06-23] MEDS: Timolol 0.5% 5ML OPTH.BTL 1 DRP OPHTHALMIC ×2 (10:23→22:26)
[2024-06-23] MEDS: levoFLOXacin IV 750 MG/150 ML BAG 100 MG IV (10:25)
[2024-06-23] MEDS: Enoxaparin 40 MG/0.4 ML Syringe SC (10:30)
[2024-06-23] MEDS: Lisinopril 2.5 MG Tablet PO (13:08)
[2024-06-23] MEDS: Ensure Plus High Protein 120 ML LIQUID PO ×2 (13:08→17:26)
[2024-06-23] MEDS: 0.9% Saline Lock 10 ML Syringe IV (21:52)
[2024-06-23] MEDS: Tamsulosin HCl 0.4 MG Capsule PO (22:25)
[2024-06-23] MEDS: Atorvastatin Calcium 40 MG Tablet PO (22:26)
[2024-06-24] VITALS (7 sets, daily range): BP systolic 94–114; BP diastolic 61–69; PULSE 89–93; RESP 18; TEMP 36.4–36.8; O2SAT 92–100; BMI 27.2
[2024-06-24] MEDS: Dorzolamide 2% 10ml Bottle 1 DRP OPHTHALMIC ×3 (06:31→21:14)
[2024-06-24 07:02] LABS: Absolute Lymphocyte Count 1.76 X10^3/uL (0.83-4.51); Absolute Neutrophil Count 12.4 X10^3/uL (2.0-7.7); Basophil# 0.04 X10^3/uL; Basophil% 0.3 % (0-1); Eosinophil# 0.31 X10^3/uL; Eosinophils% 1.9 % (0-5); Hematocrit 34.3 % (40-54); Hemoglobin 11.6 g/dL (13.0-16.5); Lymphocyte # 1.76 X10^3/ul (0.83-4.51); Mean Corp Hgb Conc 33.8 g/dL (32-36); Mean Corpuscular Hgb 31.5 pg (27.0-32.0); Mean Corpuscular Volume 93.2 fL (80-94); Mean Platelet Vol. 11.5 fl (6.2-12.0); Monocyte# 1.37 X10^3/uL; Monocyte% 8.6 % (0-10); NRBC Flagged by Analyzer 0 % (0-5); Neutrophil # 12.42 X10^3/uL (2.7-7.7); Neutrophil % 77.6 % (47-70); Platelet Count 267 K/mm3 (150-450); RBC Distribution Width SD 44.5 fl (35.1-43.9); Red Blood Count 3.68 M/mm3 (4.6-6.2)
[2024-06-24 08:04] LABS: Anion Gap 8 (5-15); BUN 20 mg/dL (7-18); BUN/Creat Ratio 24.6 RATIO (10-20); Calcium,Total 8.1 mg/dL (8.5-10.1); Chloride 106 mmol/L (98-107); Creatinine, Serum 0.81 mg/dL (0.70-1.30); EST Glomerular Filtration Rate 97 mL/min (>60); Est Glom Filt Rate - Afr Amer 117 mL/min (>60); Estimated Creatinine Clearance 65.64 ml/min; Glucose 99 mg/dL (74-106); Potassium 3.4 mmol/L (3.5-5.1); Sodium Level 137 mmol/L (136-145)
--- NOTE | 2024-06-24 08:14 | PN.HOSP_ITS ---
Reason for Visit Reason for Visit: Diagnoses Atherosclerotic heart disease of [place] coronary artery without angina pectoris (06/21/24) Other ill-defined heart diseases (06/21/24) Hypotension, unspecified (06/21/24) Acute kidney failure, unspecified (06/21/24) Other specified abnormal findings of blood chemistry (06/21/24) Subjective Subjective Feels well. No events. Objective Data Objective Data Vital Signs: Vital Signs Temp Pulse Resp BP Pulse Ox O2 Del Method O2 Flow Rate 36.4 C L 93 18 103/69 96 Nasal Cannula 2 06/24/24 06:28 06/24/24 06:28 06/24/24 06:28 06/24/24 06:28 06/24/24 07:47 06/24/24 07:47 06/24/24 07:47 Oxygen Flow Rate (L/min) 2 Oxygen Delivery Method Nasal Cannula Weight: 76.5 kg Body Mass Index (BMI) 27.2 Intake & Output: Intake and Output for Last 24 Hours 06/22/24 06/23/24 06/24/24 23:59 23:59 23:59 Intake Total 756.21 / 966.21 840 / 840 Output Total 100 / 100 Balance 656.21 / 866.21 840 / 840 Lab / Micro Data 06/24/24 05:25 06/24/24 05:25 Labs: Laboratory Results - last 24 hr 06/24/24 05:25: WBC 16.0 H, RBC 3.68 L, Hgb 11.6 L, Hct 34.3 L, MCV 93.2, MCH 31.5, MCHC 33.8, RDW Std Deviation 44.5 H, RDW Coeff of Suki 13.0, Plt Count 267, MPV 11.5, Immature Gran % (Auto) 0.600, Neut % (Auto) 77.6 H, Lymph % (Auto) 11.0 L, [place] % (Auto) 8.6, Eos % (Auto) 1.9, Baso % (Auto) 0.3, Absolute Neuts (auto) 12.4 H, Absolute Lymphs (auto) 1.76, Nucleated RBC % 0, Sodium 137, P otassium 3.4 L, Chloride 106, Carbon Dioxide 23.0, Anion Gap 8, BUN 20 H, Creatinine 0.81, Estim Creat Clear Calc 65.64, Est GFR (MDRD) Af Amer 117, Est GFR (MDRD) Non-Af 97, BUN/Creatinine Ratio 24.6 H, Glucose 99, Calcium 8.1 L Micro: Microbiology 06/21/24 16:20 Blood Culture (Wb) - Anticubital Right Blood Culture - Preliminary No growth in 48 hours. 06/21/24 15:51 Blood Culture (Wb) - Anticubital Right Blood Culture - Preliminary No growth in 48 hours. 06/21/24 18:25 Urine, Catheterized Urine Culture - Preliminary Culture exhibits no growth. Rhythm Strip Rhythm Strip: Sinus Rhythm Physical Exam Const alert and no apparent distress HEENT head/scalp atraumatic and moist oral mucous membranes Resp normal respiratory effort, no retractions, no use of accessory muscles and clear to auscultation bilaterally Cardio regular rate, regular rhythm, S1 normal heart sound and S2 normal heart sound GI normal to inspection, nondistended, normoactive bowel sounds, soft to palpation, non-tender and non-distended Extremity normal to inspection and full ROM Neuro Sensorium / Orientation: awake and alert Assessment & Plan Assessment/Plan (1) Hypotension: (2) ELLYN (acute kidney injury): PLAN: Plan Shock * resolved * hypovolemic +/- iatrogenic as patient was discharged with isosorbide 60/d, metoprolol succinate 50/d (admission MAR has 150/d), lisinopril 40/d. No action was taken on amlodipine 10/d (not continued nor discontinued). Septic shock ruled out. * Bedside POCUS on the showed collapsibility of the IVC. I feel the patient could benefit from additional IV fluids but would be cautious in regards to giving him too much fluids given his HFrEF. Patient will receive additional 500 cc of normal saline at 150 cc/h. Can continue to evaluate to see my response to that and if he does require additional IV fluids or if he may need to be started on pressors. * Infectious work up thus far has been negative, but highly concerning for a bacteria infection given severe leukocytosis upon presentation. * Will slowly add medications back, but at a lower dose. Though, I would not resume amlodipine at this time. Restarted on low doses of Metoprolol succinate and lisinopril (25 and 2.5, respectively) and furosemide 20/d ELLYN * POA, now resolved * suspect prerenal as improved with IVF Recent STEMI * admission trops >125k. Only had 1 trop during last admission which was 93. * continue ASA, atorvastatin, clopidogrel. Hold lisiopril due to hypotension, ELLYN. * cardiology consulted felt troponins related with recent STEMI not a new event. Heparin gtt dc'd. HFrEF, chronic. * echo 06/19 showed an EF 20% with anterior, anteroseptal and inferior septal akinesis. * repeat echo on 06/22 shows an EF 20-25%. Anterior, apical and inferior akinesis * continue empagliflozin, lisinopril, metoprolol, furosemide UTI, suspected. * levofloxacin * UCx, thus far shows no organisms. Will dc abx and observe Chronic medical conditions: * Recent history of left-sided hydronephrosis with ureteral stent placement with hematuria, history of prostate cancer, BPH with obstructive symptoms: Follows with Dr. Salguero. Had cystoscopy with left ureteral stent placement on 06/15. Hemoglobin stable at 13.2 on admit. Continue home Flomax. No inpatient needs, continue outpatient follow-up. * Glaucoma: Continue home eyedrops. * GERD: Continue home PPI. DVT prophylaxis: enoxaparin Disposition: looking at [facility]. awaiting on insurance approval. Charges/Coding Visit Charges Inpatient E&M: 24979 [facility] Hosp L2
[2024-06-24] MEDS: Ensure Plus High Protein 120 ML LIQUID PO ×3 (09:01→17:12)
[2024-06-24] MEDS: Potassium Chloride Oral Tablet 20 MEQ 40 MEQ PO (09:01)
[2024-06-24] MEDS: Donepezil HCl 5 MG Tablet PO (09:01)
[2024-06-24] MEDS: Potassium Chloride Oral Tablet 10 MEQ PO (09:02)
[2024-06-24] MEDS: Metoprolol(XL)Succ 25 MG Tablet PO (09:02)
[2024-06-24] MEDS: Furosemide 20 MG Tablet PO (09:02)
[2024-06-24] MEDS: Enoxaparin 40 MG/0.4 ML Syringe SC (09:02)
[2024-06-24] MEDS: Lisinopril 2.5 MG Tablet PO (09:02)
[2024-06-24] MEDS: Empagliflozin 10 MG Tablet PO (09:03)
[2024-06-24] MEDS: Clopidogrel Bisulfate 75 MG Tablet PO (09:03)
[2024-06-24] MEDS: Pantoprazole Sodium 40 MG Tablet PO (09:03)
[2024-06-24] MEDS: Aspirin E.C. 81 MG Tablet PO (09:03)
[2024-06-24] MEDS: Timolol 0.5% 5ML OPTH.BTL 1 DRP OPHTHALMIC ×2 (09:03→21:14)
[2024-06-24] MEDS: BRIMONIDINE 0.2% 5ML BOTTLE 1 DRP OPHTHALMIC ×2 (09:07→21:14)
[2024-06-24] MEDS: oxyCODONE 5 MG Tablet 10 MG PO (17:14)
[2024-06-24] MEDS: Acetaminophen 325 MG Tablet 650 MG PO (17:14)
[2024-06-24] MEDS: Tamsulosin HCl 0.4 MG Capsule PO (21:14)
[2024-06-24] MEDS: Atorvastatin Calcium 40 MG Tablet PO (21:14)
[2024-06-24] MEDS: LATANOPROSTENE BUNOD 0.024% 1 DRP OPHTHALMIC (21:14)
[2024-06-25] VITALS (8 sets, daily range): BP systolic 110–137; BP diastolic 63–72; PULSE 84–104; RESP 16–22; TEMP 36.3–36.9; O2SAT 93–100; BMI 27.1
[2024-06-25] MEDS: Acetaminophen 325 MG Tablet 650 MG PO ×2 (02:31→20:09)
[2024-06-25] MEDS: Dorzolamide 2% 10ml Bottle 1 DRP OPHTHALMIC ×3 (05:16→20:11)
[2024-06-25 06:44] LABS: Absolute Lymphocyte Count 1.87 X10^3/uL (0.83-4.51); Absolute Neutrophil Count 11.4 X10^3/uL (2.0-7.7); Basophil# 0.05 X10^3/uL; Basophil% 0.3 % (0-1); Eosinophils% 2.6 % (0-5); Hematocrit 35.9 % (40-54); Hemoglobin 11.6 g/dL (13.0-16.5); Lymphocyte # 1.87 X10^3/ul (0.83-4.51); Lymphocyte % 12.3 % (19-41); Mean Corp Hgb Conc 32.3 g/dL (32-36); Mean Corpuscular Hgb 30.1 pg (27.0-32.0); Mean Corpuscular Volume 93.2 fL (80-94); Monocyte# 1.38 X10^3/uL; Monocyte% 9.1 % (0-10); NRBC Flagged by Analyzer 0 % (0-5); Neutrophil # 11.36 X10^3/uL (2.7-7.7); Neutrophil % 75.1 % (47-70); Platelet Count 260 K/mm3 (150-450); RBC Distribution Width CV 12.8 % (11.6-14.6); RBC Distribution Width SD 43.6 fl (35.1-43.9); Red Blood Count 3.85 M/mm3 (4.6-6.2); White Blood Count 15.2 K/mm3 (4.4-11.0)
[2024-06-25 07:04] LABS: Anion Gap 6 (5-15); BUN 18 mg/dL (7-18); BUN/Creat Ratio 21.6 RATIO (10-20); Calcium,Total 8.5 mg/dL (8.5-10.1); Chloride 107 mmol/L (98-107); Creatinine, Serum 0.84 mg/dL (0.70-1.30); EST Glomerular Filtration Rate 94 mL/min (>60); Est Glom Filt Rate - Afr Amer 114 mL/min (>60); Estimated Creatinine Clearance 63.29 ml/min; Glucose 103 mg/dL (74-106); Potassium 3.4 mmol/L (3.5-5.1); Sodium Level 136 mmol/L (136-145)
[2024-06-25] MEDS: Potassium Chloride Oral Tablet 20 MEQ 40 MEQ PO (08:26)
[2024-06-25] MEDS: Ensure Plus High Protein 120 ML LIQUID PO ×3 (08:26→17:29)
[2024-06-25] MEDS: Lisinopril 2.5 MG Tablet PO (08:26)
[2024-06-25] MEDS: Empagliflozin 10 MG Tablet PO (08:27)
[2024-06-25] MEDS: Aspirin E.C. 81 MG Tablet PO (08:27)
[2024-06-25] MEDS: Clopidogrel Bisulfate 75 MG Tablet PO (08:27)
[2024-06-25] MEDS: Potassium Chloride Oral Tablet 10 MEQ PO (08:27)
[2024-06-25] MEDS: Pantoprazole Sodium 40 MG Tablet PO (08:28)
[2024-06-25] MEDS: Donepezil HCl 5 MG Tablet PO (08:28)
[2024-06-25] MEDS: Furosemide 20 MG Tablet PO (08:28)
[2024-06-25] MEDS: Metoprolol(XL)Succ 25 MG Tablet PO (08:29)
[2024-06-25] MEDS: BRIMONIDINE 0.2% 5ML BOTTLE 1 DRP OPHTHALMIC ×2 (08:31→20:11)
[2024-06-25] MEDS: Timolol 0.5% 5ML OPTH.BTL 1 DRP OPHTHALMIC ×2 (08:33→20:12)
[2024-06-25] MEDS: Enoxaparin 40 MG/0.4 ML Syringe SC (08:41)
--- NOTE | 2024-06-25 11:06 | CASEMGMT ---
PENNY spoke with Yolande from [employer] and she left a message for patient's daughter Meliza to call her regarding applying for Medicaid. María Cox BATH TESTER LEE ANN
--- NOTE | 2024-06-25 12:06 | CASEMGMT ---
Discharge Planning [facility] has accepted and will submit for precert. Jess Oliveira DC Planning Asst.
--- NOTE | 2024-06-25 12:22 | CASEMGMT ---
PENNY called patient's daughter Meliza and left her a voice mail letting her know [facility] can take patient. PENNY explained that insurance will need to approve patient first. Plan: d/c to [facility] pending insurance approval. María Cox NURSING AIDEGloria NANCE
--- NOTE | 2024-06-25 12:32 | CASEMGMT ---
PENNY spoke with Yolande from [employer] and patient will not qualify for Medicaid as he is over in resources. Patient has a life insurance policy that would need to be cashed out first. Plan: [facility] pending insurance approval. María Cox MOLDING FITTERGloria NANCE
--- NOTE | 2024-06-25 12:40 | PCM.PN.HOSP ---
Reason for Visit Reason for Visit: Diagnoses Atherosclerotic heart disease of [place] coronary artery without angina pectoris (06/21/24) Other ill-defined heart diseases (06/21/24) Hypotension, unspecified (06/21/24) Acute kidney failure, unspecified (06/21/24) Other specified abnormal findings of blood chemistry (06/21/24) Subjective Subjective Patient is a 79-year-old gentleman with recent diagnosis of ST segment elevation NE underwent successful left heart catheterization with PCI with balloon angioplasty and IVUS. Was discharged on 06/20/2024 presented back the following day With lightheadedness dizziness and confusion.was diagnosed with hypotension with ELLYN admitted to a monitored bed for subsequent management Objective Data Objective Data Vital Signs: Vital Signs Temp Pulse Resp BP Pulse Ox O2 Del Method O2 Flow Rate 97.9 F 84 17 116/70 97 Room Air 2 06/25/24 08:06 06/25/24 08:29 06/25/24 08:06 06/25/24 08:06 06/25/24 08:06 06/25/24 08:17 06/24/24 07:47 Oxygen Flow Rate (L/min) 2 Oxygen Delivery Method Room Air Weight: 76.3 kg Body Mass Index (BMI) 27.1 Intake & Output: Intake and Output for Last 24 Hours 06/23/24 06/24/24 06/25/24 23:59 23:59 23:59 Intake Total 840 / 840 720 / 720 760 / 760 Balance 840 / 840 720 / 720 760 / 760 Lab / Micro Data 06/25/24 06:18 06/25/24 06:18 Labs: Laboratory Results - last 24 hr 06/25/24 06:18: WBC 15.2 H, RBC 3.85 L, Hgb 11.6 L, Hct 35.9 L, MCV 93.2, MCH 30.1, MCHC 32.3, RDW Std Deviation 43.6, RDW Coeff of Suki 12.8, Plt Count 260, MPV 11.0, Immature Gran % (Auto) 0.600, Neut % (Auto) 75.1 H, Lymph % (Auto) 12.3 L, [place] % (Auto) 9.1, Eos % (Auto) 2.6, Baso % (Auto) 0.3, Absolute Neuts (auto) 11.4 H, Absolute Lymphs (auto) 1.87, Nucleated RBC % 0, Sodium 136, Potassium 3.4 L, Chloride 107, Carbon Dioxide 23.0, Anion Gap 6, BUN 18, Creatinine 0.84, Estim Creat Clear Calc 63.29, Est GFR (MDRD) Af Amer 114, Est GFR (MDRD) Non-Af 94, BUN/Creatinine Ratio 21.6 H, Glucose 103, Calcium 8.5 Micro: Microbiology 06/21/24 18:25 Urine, Catheterized Urine Culture - Final Culture exhibits no growth. 06/21/24 16:20 Blood Culture (Wb) - Anticubital Right Blood Culture - Preliminary No growth in 48 hours. 06/21/24 15:51 Blood Culture (Wb) - Anticubital Right Blood Culture - Preliminary No growth in 48 hours. Rhythm Strip Rhythm Strip: Sinus Rhythm Physical Exam Narrative GENERAL: cooperative HEENT: Atraumatic; normocephalic EYES; Anicteric, Normal Conjunctiva NECK; supple, normal thyroid, RESPIRATORY: Diminished to auscultation CARDIOVASCULAR: Regular S1 S2, GI: soft, normoactive bowel sounds, : No Renal angle tenderness; EXTREMITIES: No edema, no clubbing, MUSCULOSKELETAL: no muscle wasting NEURO: Awake; no lateralizing signs. SKIN: No Rash PSYCH; Flat affect Assessment & Plan Assessment/Plan (1) ELLYN (acute kidney injury): (2) Hypotension: PLAN: Plan Patient is a 79-year-old gentleman with recent diagnosis of ST segment elevation NE underwent successful left heart catheterization with PCI with balloon angioplasty and IVUS. Was discharged on 06/20/2024 presented back the following day With lightheadedness dizziness and confusion.was diagnosed with hypotension with ELLYN admitted to a monitored bed for subsequent management 1. Hypovolemia ? Secondary to recent adjustment of patient medications admitted to a monitored bed resuscitated with IV fluids septic shock was ruled out 2. Recent admission for acute STEMI ? Patient underwent left heart catheterization on 06/18/2024 which demonstrated 99% in-stent thrombosis of proximal LAD s/p successful percutaneous intervention with balloon angioplasty and IVUS. Patient was discharged home on guideline directed medical therapy 3. Leukocytosis ? Reactive. Cultures including urine and blood negative to date 4. Chronic congestive heart failure with reduced ejection fraction ? Secondary to recent STEMI. LV gram during cath showed estimated EF of 30%. A transthoracic echo ordered did show severe LV systolic dysfunction. Estimated LVEF 20 to 25%. Anterior, apical and inferior akinesis. Mild focal aortic valve thickening. There is Mild focal posterior mitral annular calcification 5. Coronary artery disease ? Patient is on guideline directed medical therapy 6. Essential hypertension ? Antihypertensives held given his presentation 7. Acute kidney injury ? Baseline creatinine from 06/20/2024 was 1.09 creatinine as of 06/21/2024 was 2.17 on admission rehydrated with subsequent monitoring of electrolytes ordered 8. Recent diagnosis of hematuria with left-sided hydronephrosis ? Patient underwent ureteral stent placement by on 06/15/2024 9. History of prostate CA ? Currently stable 10. GERD Is on PPI 11. Peripheral arterial disease ? Patient is on antiplatelet as well as atorvastatin continued 12. Glaucoma ? Patient is on brimonidine?timolol eyedrops continue 13. DVT prophylaxis ? On enoxaparin 14. Physical deconditioning ? Requested for PT OT eval and social media campaign manager to assist with discharge planning Time spent in the patient's overall evaluation,decision-making process, review of diagnostic data, adjustment of management, discussion with other providers, nursing nursing and ancillary staff involved in patient's care documentation, 52 Minutes Charges/Coding Visit Charges Inpatient E&M: 37822 Subs Hosp L3
[2024-06-25] MEDS: SimETHICONE 80 MG Chewable Tablet PO (14:18)
[2024-06-25] MEDS: oxyCODONE 5 MG Tablet 10 MG PO (17:29)
--- NOTE | 2024-06-25 17:37 | US_ITS ---
INDICATION: pain EXAMINATION: Ultrasound US Kidney(s) complete (eg, kidneys and bladder) TECHNIQUE: Pedraza scale and color doppler images were obtained of the kidneys. COMPARISON: Prior study dated: CT abdomen pelvis 06/21/2024 FINDINGS: RIGHT KIDNEY: 12.8 cm length. There is no hydronephrosis. Several cysts, largest is 2.7 x 2.2 x 2.6 cm at the upper pole, and 2.1 x 1.8 x 1.9 cm interpolar cyst. LEFT KIDNEY: 11.7 cm length. There is moderate hydronephrosis. Appears increased compared to the recent CT. The left ureteral stent seen on the CT is not clearly visualized. Several cysts, largest exophytic upper pole is 3.7 x 3.0 x 3.4 cm. URINARY BLADDER: Mildly distended. Bladder volume 81 mL. Mild thickened wall. Ureteral jets were not visualized. US/Kidney and Bladder IMPRESSION: Moderate left hydronephrosis. Appears increased compared to prior CT. No hydronephrosis on the right. Urinary bladder wall thickening. Electronically Signed: Mariah Min MD at 8:11 EST ,
[2024-06-25] MEDS: Tamsulosin HCl 0.4 MG Capsule PO (20:10)
[2024-06-25] MEDS: Atorvastatin Calcium 40 MG Tablet PO (20:10)
[2024-06-25] MEDS: LATANOPROSTENE BUNOD 0.024% 1 DRP OPHTHALMIC (20:12)
[2024-06-26 04:00] VITALS: BP 119/70; PULSE 82; RESP 20; TEMP 36.6; O2SAT 94
[2024-06-26] MEDS: oxyCODONE 5 MG Tablet 10 MG PO (04:41)
[2024-06-26] MEDS: Acetaminophen 325 MG Tablet 650 MG PO (04:41)
[2024-06-26 05:26] VITALS: BMI 27.6
[2024-06-26] MEDS: Dorzolamide 2% 10ml Bottle 1 DRP OPHTHALMIC ×3 (06:01→21:40)
--- NOTE | 2024-06-26 07:27 | PN.HOSP_ITS ---
Reason for Visit Reason for Visit: Diagnoses Atherosclerotic heart disease of [place] coronary artery without angina pectoris (06/21/24) Other ill-defined heart diseases (06/21/24) Hypotension, unspecified (06/21/24) Acute kidney failure, unspecified (06/21/24) Other specified abnormal findings of blood chemistry (06/21/24) Subjective Subjective Patient did develop flank pain as well as hematuria given his recent stent placement consult was placed to Dr Salguero with urology Objective Data Objective Data Vital Signs: Vital Signs Temp Pulse Resp BP Pulse Ox O2 Del Method O2 Flow Rate 97.9 F 82 20 H 119/70 94 CPAP 2 06/26/24 04:00 06/26/24 04:00 06/26/24 04:00 06/26/24 04:00 06/26/24 04:00 06/26/24 04:00 06/24/24 07:47 Oxygen Flow Rate (L/min) 2 Oxygen Delivery Method CPAP Weight: 77.6 kg Body Mass Index (BMI) 27.6 Intake & Output: Intake and Output for Last 24 Hours 06/24/24 06/25/24 06/26/24 23:59 23:59 23:59 Intake Total 720 / 720 1085 / 1085 400 / 400 Balance 720 / 720 1085 / 1085 400 / 400 Lab / Micro Data 06/25/24 06:18 06/25/24 06:18 Micro: Microbiology 06/21/24 18:25 Urine, Catheterized Urine Culture - Final Culture exhibits no growth. 06/21/24 16:20 Blood Culture (Wb) - Anticubital Right Blood Culture - Preliminary No growth in 48 hours. 06/21/24 15:51 Blood Culture (Wb) - Anticubital Right Blood Culture - Preliminary No growth in 48 hours. Rhythm Strip Rhythm Strip: Sinus Rhythm Physical Exam Narrative GENERAL: cooperative HEENT: Atraumatic; normocephalic EYES; Anicteric, Normal Conjunctiva NECK; supple, normal thyroid, RESPIRATORY: Diminished to auscultation CARDIOVASCULAR: Regular S1 S2, GI: soft, normoactive bowel sounds, : No Renal angle tenderness; EXTREMITIES: No edema, no clubbing, MUSCULOSKELETAL: no muscle wasting NEURO: Awake; no lateralizing signs. SKIN: No Rash PSYCH; Flat affect Assessment & Plan Assessment/Plan (1) ELLYN (acute kidney injury): (2) Hypotension: PLAN: Plan Patient is a 79-year-old gentleman with recent diagnosis of ST segment elevation [place] underwent successful left heart catheterization with PCI with balloon angioplasty and IVUS. Was discharged on 06/20/2024 presented back the following day With lightheadedness dizziness and confusion.was diagnosed with hypotension with ELLYN admitted to a monitored bed for subsequent management 1. Hypovolemia ? Secondary to recent adjustment of patient medications admitted to a monitored bed resuscitated with IV fluids septic shock was ruled out -06/26/2024; BP stable 2. Recent admission for acute STEMI ? Patient underwent left heart catheterization on 06/18/2024 which demonstrated 99% in-stent thrombosis of proximal LAD s/p successful percutaneous intervention with balloon angioplasty and IVUS. Patient was discharged home on guideline directed medical therapy 3. Leukocytosis ? Reactive. Cultures including urine and blood negative to date 4. Chronic congestive heart failure with reduced ejection fraction ? Secondary to recent STEMI. LV gram during cath showed estimated EF of 30%. A transthoracic echo ordered did show severe LV systolic dysfunction. Estimated LVEF 20 to 25%. Anterior, apical and inferior akinesis. Mild focal aortic valve thickening. There is Mild focal posterior mitral annular calcification 5. Coronary artery disease ? Patient is on guideline directed medical therapy 6. Essential hypertension ? Antihypertensives held given his presentation 7. Acute kidney injury ? Baseline creatinine from 06/20/2024 was 1.09 creatinine as of 06/21/2024 was 2.17 on admission rehydrated with subsequent monitoring of electrolytes ordered 8. Recent diagnosis of hematuria with left-sided hydronephrosis ? Patient underwent ureteral stent placement by on 06/15/2024 ? 06/26/2024;Patient did develop flank pain as well as hematuria USG did show Moderate left hydronephrosis. Appears increased compared to prior CT. No hydronephrosis on the right. Urinary bladder wall thickening.given his recent stent placement consult was placed to Dr Salguero with urology. 9. History of prostate CA ? Currently stable 10. GERD Is on PPI 11. Peripheral arterial disease ? Patient is on antiplatelet as well as atorvastatin continued 12. Glaucoma ? Patient is on brimonidine?timolol eyedrops continue 13. DVT prophylaxis ? On enoxaparin 14. Physical deconditioning ? Requested for PT OT eval and social services technician to assist with discharge planning Time spent in the patient's overall evaluation,decision-making process, review of diagnostic data, adjustment of management, discussion with other providers, nursing nursing and ancillary staff involved in patient's care documentation, 50 Minutes Charges/Coding Visit Charges Inpatient E&M: 89692 Subs Hosp L3
--- NOTE | 2024-06-26 07:47 | PCM.CONS.U ---
HPI Consult Data Date of Consult: 06/26/24 HPI Narrative Reason for Consultation: Ureteral stent HPI Narrative: TRI FRANK, is a 79 M who presents to the hospital with cardiac issues he recently had heart stent done and has been having coronary problems has been admitted to the hospital while he was here I been asked to see him because I put a stent in recently. At the time of the stent placement it was questionable what was causing the obstruction of his kidney on the left side I first it was possibly a stone but when I got in there to space to be found a dense stricture at the distal left ureter was very difficult to get in with a wire was able to get in with a wire and then finally placed a stent on the left side to alleviate obstruction. The stent can be left in for quite some time from my perspective I do not have any de la rosa to do anything we can leave the stent in and will 5 to change stent in 4 to 6 months he can follow-up with me after discharge from the hospital. [facility] Medical History (Updated 06/23/24 @ 00:03 by Jaqueline Jesus) ST elevation (STEMI) myocardial infarction involving left anterior descending coronary artery (~06/18/24) Wears dentures Wears glasses Cancer Arthritis High cholesterol Migraine headache Injury of head and neck History of IBS Gastric reflux Former smoker Sleep apnea History of stress test History of echocardiogram Hypertension Cardiology follow-up encounter History of irregular heartbeat Osteoarthritis Panic attack MARIE (dyspnea on exertion) MVP (mitral valve prolapse) Left carotid bruit Ganglion cyst Edema of both lower extremities CPAP (continuous positive airway pressure) dependence Chronic pain Cataract Bleeding nevus Back pain Aortic valve disease COVID-19 NSTEMI (non-ST elevated myocardial infarction) PAD (peripheral artery disease) Hyperlipidemia Glaucoma Near syncope Hyperglycemia Tobacco user Gastroesophageal reflux disease COPD (chronic obstructive pulmonary disease) Hx pulmonary embolism HTN (hypertension) Prostate cancer Home Medications ?Medication ?Instructions ?Recorded ?Last Taken ?Type timolol maleate 0.5 % eye gel 1 drp [facility] eye health 07/28/16 01/10/20 History forming solution (Timoptic-XE) oxycodone-acetaminophen 10 mg-325 10 mg PO BID PRN Pain Score 1-05/0303/20/19 01/08/20 History mg tablet amlodipine 10 mg tablet 10 mg PO DAILY high blood pressure 06/30/23 06/15/24 History dorzolamide 2 % eye drops 1 drp ophthalmic (eye) TID glaucoma 06/30/23 Unknown History metoprolol succinate 100 mg 150 mg PO DAILY 07/14/23 06/15/24 History tablet,extended release 24 hr brimonidine 0.2 %-timolol 0.5 % 1 drp ophthalmic (eye) BID 11/07/23 Unknown History eye drops latanoprostene bunod 0.024 % eye 1 drp ophthalmic (eye) DAILY 11/07/23 Unknown History drops (Vyzulta) cephalexin 500 mg capsule 500 mg PO TID #15 caps 06/15/24 Unknown Rx aspirin 81 mg tablet,delayed 81 mg PO DAILY@0800 #0 tabs 06/20/24 Unknown Rx release atorvastatin 40 mg tablet 40 mg PO QHS #30 tabs 06/20/24 Unknown Rx clopidogrel 75 mg tablet 75 mg PO DAILY #30 tabs 06/20/24 Unknown Rx donepezil 5 mg tablet (Aricept) 5 mg PO DAILY #30 tabs 06/20/24 Unknown Rx empagliflozin 10 mg tablet 10 mg PO DAILY #30 tabs 06/20/24 Unknown Rx (Jardiance) furosemide 40 mg tablet 40 mg PO DAILY #30 tabs 06/20/24 Unknown Rx isosorbide mononitrate 60 mg 60 mg PO DAILY #30 tabs 06/20/24 Unknown Rx tablet,extended release 24 hr lisinopril 40 mg tablet 40 mg PO DAILY #30 tabs 06/20/24 Unknown Rx metoprolol succinate 50 mg 150 mg (3 x 50 mg) PO DAILY #90 06/20/24 Unknown Rx tablet,extended release 24 hr tabs nitroglycerin 0.4 mg sublingual 0.4 mg sublingual Q5M PRN Chest 06/20/24 Unknown Rx tablet Pain #25 tabs pantoprazole 40 mg tablet,delayed 40 mg PO DAILY #30 tabs 06/20/24 Unknown Rx release potassium chloride 20 mEq 20 meq PO DAILYCM #30 tabs 06/20/24 Unknown Rx tablet,extended release(part/cryst) spironolactone 25 mg tablet 25 mg PO DAILY #30 tabs 06/20/24 Unknown Rx (Aldactone) tamsulosin 0.4 mg capsule 0.4 mg PO QHS #30 caps 06/20/24 Unknown Rx Allergy/AdvReac Type Severity Reaction Status Date / Time Penicillins Allergy Unknown Verified 06/21/24 15:34 Sulfa (Sulfonamide Allergy Unknown Verified 06/21/24 15:34 Antibiotics) carvedilol AdvReac Severe Respiratory Verified 06/21/24 15:34 distress hydralazine AdvReac Intermediate Dizziness Verified 06/21/24 15:34 hydrocodone (From Vicodin) AdvReac Intermediate Other Verified 06/21/24 15:34 morphine AdvReac Intermediate Shortness Verified 06/21/24 15:34 of breath lorazepam AdvReac Other Verified 06/21/24 15:34 Family History Mother COPD (chronic obstructive pulmonary disease) Father Cancer Myocardial infarction Surgical History (Updated 06/23/24 @ 00:03 by Background Dayehuda) History of PTCA (06/18/24) Hx of cardiac catheterization (~11/08/23) Stented coronary artery (~11/08/23) Hx of eye surgery Hx of tonsillectomy Social History household members: none housing: apartment number of children: 1 current occupational status: retired Smoking Status: Former smoker alcohol intake: never substance use type: does not use caffeine: Yes (all day) Type: coffee Lab / Micro Data 06/25/24 06:18 06/25/24 06:18 Rhythm Strip Rhythm Strip: Sinus Rhythm
[2024-06-26 09:24] VITALS: PULSE 90
[2024-06-26] MEDS: Metoprolol(XL)Succ 25 MG Tablet PO (09:24)
[2024-06-26] MEDS: Pantoprazole Sodium 40 MG Tablet PO (09:25)
[2024-06-26] MEDS: Donepezil HCl 5 MG Tablet PO (09:25)
[2024-06-26] MEDS: Potassium Chloride Oral Tablet 10 MEQ PO (09:25)
[2024-06-26] MEDS: Lisinopril 2.5 MG Tablet PO (09:25)
[2024-06-26] MEDS: Aspirin E.C. 81 MG Tablet PO (09:25)
[2024-06-26] MEDS: Furosemide 20 MG Tablet PO (09:25)
[2024-06-26] MEDS: Ensure Plus High Protein 120 ML LIQUID PO ×3 (09:26→17:49)
[2024-06-26] MEDS: Enoxaparin 40 MG/0.4 ML Syringe SC (09:26)
[2024-06-26] MEDS: Empagliflozin 10 MG Tablet PO (09:26)
[2024-06-26] MEDS: BRIMONIDINE 0.2% 5ML BOTTLE 1 DRP OPHTHALMIC ×2 (09:27→21:41)
[2024-06-26] MEDS: Timolol 0.5% 5ML OPTH.BTL 1 DRP OPHTHALMIC ×2 (09:27→21:40)
[2024-06-26] MEDS: Clopidogrel Bisulfate 75 MG Tablet PO (09:29)
[2024-06-26 10:00] VITALS: BP 113/75; PULSE 90; RESP 16; TEMP 35.9; O2SAT 100
[2024-06-26 14:59] VITALS: BP 100/52; PULSE 86; RESP 15; TEMP 36.4; O2SAT 97
[2024-06-26 21:31] VITALS: BP 108/70; PULSE 89; RESP 16; TEMP 36.9; O2SAT 94
[2024-06-26] MEDS: LATANOPROSTENE BUNOD 0.024% 1 DRP OPHTHALMIC (21:40)
[2024-06-26] MEDS: Tamsulosin HCl 0.4 MG Capsule PO (21:40)
[2024-06-26] MEDS: Atorvastatin Calcium 40 MG Tablet PO (21:40)
[2024-06-27] VITALS (7 sets, daily range): BP systolic 110–126; BP diastolic 62–71; PULSE 66–92; RESP 16–17; TEMP 35.9–37; O2SAT 93–99
[2024-06-27] MEDS: Dorzolamide 2% 10ml Bottle 1 DRP OPHTHALMIC ×3 (06:00→21:27)
[2024-06-27] MEDS: Lisinopril 2.5 MG Tablet PO (09:04)
[2024-06-27] MEDS: Metoprolol(XL)Succ 25 MG Tablet PO (09:04)
[2024-06-27] MEDS: Empagliflozin 10 MG Tablet PO (09:05)
[2024-06-27] MEDS: Aspirin E.C. 81 MG Tablet PO (09:05)
[2024-06-27] MEDS: Furosemide 20 MG Tablet PO (09:05)
[2024-06-27] MEDS: Potassium Chloride Oral Tablet 10 MEQ PO (09:05)
[2024-06-27] MEDS: Donepezil HCl 5 MG Tablet PO (09:05)
[2024-06-27] MEDS: Ensure Plus High Protein 120 ML LIQUID PO ×3 (09:05→15:44)
[2024-06-27] MEDS: Clopidogrel Bisulfate 75 MG Tablet PO (09:05)
[2024-06-27] MEDS: Pantoprazole Sodium 40 MG Tablet PO (09:05)
[2024-06-27] MEDS: Enoxaparin 40 MG/0.4 ML Syringe SC (09:05)
[2024-06-27] MEDS: Acetaminophen 325 MG Tablet 650 MG PO ×2 (09:19→21:44)
[2024-06-27] MEDS: oxyCODONE 5 MG Tablet 10 MG PO ×2 (09:20→21:44)
[2024-06-27] MEDS: Timolol 0.5% 5ML OPTH.BTL 1 DRP OPHTHALMIC ×2 (10:00→21:29)
[2024-06-27] MEDS: BRIMONIDINE 0.2% 5ML BOTTLE 1 DRP OPHTHALMIC ×2 (10:00→21:26)
--- NOTE | 2024-06-27 10:25 | PCM.PN.HOSP ---
Reason for Visit Reason for Visit: Diagnoses Atherosclerotic heart disease of [place] coronary artery without angina pectoris (06/21/24) Other ill-defined heart diseases (06/21/24) Hypotension, unspecified (06/21/24) Acute kidney failure, unspecified (06/21/24) Other specified abnormal findings of blood chemistry (06/21/24) Subjective Subjective Patient seen had a relatively uneventful day. Left flank pain improved patient does not report any further hematuria. Awaiting transfer to senior care facility Objective Data Objective Data Vital Signs: Vital Signs Temp Pulse Resp BP Pulse Ox O2 Del Method O2 Flow Rate 96.7 F L 90 17 123/69 H 94 Room Air 2 06/27/24 09:30 06/27/24 09:30 06/27/24 09:30 06/27/24 09:30 06/27/24 10:12 06/27/24 10:12 06/24/24 07:47 Oxygen Flow Rate (L/min) 2 Oxygen Delivery Method Room Air Weight: 77.6 kg Body Mass Index (BMI) 27.6 Intake & Output: Intake and Output for Last 24 Hours 06/25/24 06/26/24 06/27/24 23:59 23:59 23:59 Intake Total 1085 / 1085 1120 / 1120 Output Total 450 / 450 500 / 500 Balance 1085 / 1085 670 / 670 -500 / -500 Lab / Micro Data 06/25/24 06:18 06/25/24 06:18 Micro: Microbiology 06/21/24 16:20 Blood Culture (Wb) - Anticubital Right Blood Culture - Final No growth in 5 days. 06/21/24 15:51 Blood Culture (Wb) - Anticubital Right Blood Culture - Final No growth in 5 days. 06/21/24 18:25 Urine, Catheterized Urine Culture - Final Culture exhibits no growth. Rhythm Strip Rhythm Strip: Sinus Rhythm Physical Exam Narrative GENERAL: cooperative HEENT: Atraumatic; normocephalic EYES; Anicteric, Normal Conjunctiva NECK; supple, normal thyroid, RESPIRATORY: Diminished to auscultation CARDIOVASCULAR: Regular S1 S2, GI: soft, normoactive bowel sounds, : No Renal angle tenderness; EXTREMITIES: No edema, no clubbing, MUSCULOSKELETAL: no muscle wasting NEURO: Awake; no lateralizing signs. SKIN: No Rash PSYCH; Flat affect Assessment & Plan Assessment/Plan (1) ELLYN (acute kidney injury): (2) Hypotension: PLAN: Plan Patient is a 79-year-old gentleman with recent diagnosis of ST segment elevation [place] underwent successful left heart catheterization with PCI with balloon angioplasty and IVUS. Was discharged on 06/20/2024 presented back the following day With lightheadedness dizziness and confusion.was diagnosed with hypotension with ELLYN admitted to a monitored bed for subsequent management 1. Hypovolemia ? Secondary to recent adjustment of patient medications admitted to a monitored bed resuscitated with IV fluids septic shock was ruled out -06/26/2024; BP stable ? 06/27/2024 patient denies any lightheadedness no dizziness blood pressure remained stable 2. Recent admission for acute STEMI ? Patient underwent left heart catheterization on 06/18/2024 which demonstrated 99% in-stent thrombosis of proximal LAD s/p successful percutaneous intervention with balloon angioplasty and IVUS. Patient was discharged home on guideline directed medical therapy 3. Leukocytosis ? Reactive. Cultures including urine and blood negative to date 4. Chronic congestive heart failure with reduced ejection fraction ? Secondary to recent STEMI. LV gram during cath showed estimated EF of 30%. A transthoracic echo ordered did show severe LV systolic dysfunction. Estimated LVEF 20 to 25%. Anterior, apical and inferior akinesis. Mild focal aortic valve thickening. There is Mild focal posterior mitral annular calcification 5. Coronary artery disease ? Patient is on guideline directed medical therapy 6. Essential hypertension ? Antihypertensives held given his presentation 7. Acute kidney injury ? Baseline creatinine from 06/20/2024 was 1.09 creatinine as of 06/21/2024 was 2.17 on admission rehydrated with subsequent monitoring of electrolytes ordered 8. Recent diagnosis of hematuria with left-sided hydronephrosis ? Patient underwent ureteral stent placement by on 06/15/2024 ? 06/26/2024;Patient did develop flank pain as well as hematuria USG did show Moderate left hydronephrosis. Appears increased compared to prior CT. No hydronephrosis on the right. Urinary bladder wall thickening.given his recent stent placement consult was placed to Dr Salguero with urology. ? 06/27/2024 denies any further flank pain no hematuria 9. History of prostate CA ? Currently stable 10. GERD Is on PPI 11. Peripheral arterial disease ? Patient is on antiplatelet as well as atorvastatin continued 12. Glaucoma ? Patient is on brimonidine?timolol eyedrops continue 13. DVT prophylaxis ? On enoxaparin 14. Physical deconditioning ? Requested for PT OT eval and manager social responsibility to assist with discharge planning ? 06/27/2024; awaiting transfer to a senior care facility pending insurance approval Time spent in the patient's overall evaluation,decision-making process, review of diagnostic data, adjustment of management, discussion with other providers, nursing nursing and ancillary staff involved in patient's care documentation, 36 Minutes Charges/Coding Visit Charges Inpatient E&M: 47207 Subs Hosp L2
--- NOTE | 2024-06-27 10:33 | CASEMGMT ---
PENNY called patient's daughter Meliza and explained to her that it is a good possibility that patient may get denied as he is doing well with therapy. PENNY asked if she has spoken to patient about spending down his life insurance so he can get Medicaid. Meliza said she has not. Meliza said if he is denied he will go home with home health. PENNY told her SW will let her know when insurance responds. María Cxo SEWING MACHINE OPERATOR [employer] LEE ANN
[2024-06-27] MEDS: Atorvastatin Calcium 40 MG Tablet PO (21:24)
[2024-06-27] MEDS: Tamsulosin HCl 0.4 MG Capsule PO (21:24)
[2024-06-27] MEDS: 0.9% Saline Lock 10 ML Syringe IV (21:24)
[2024-06-27] MEDS: LATANOPROSTENE BUNOD 0.024% 1 DRP OPHTHALMIC (21:29)
[2024-06-28] VITALS (7 sets, daily range): BP systolic 115–132; BP diastolic 63–77; PULSE 79–91; RESP 12–18; TEMP 36.4–36.6; O2SAT 95–97; BMI 27.6
[2024-06-28] MEDS: Dorzolamide 2% 10ml Bottle 1 DRP OPHTHALMIC ×3 (05:47→21:03)
--- NOTE | 2024-06-28 08:52 | PCM.PN.HOSP ---
Reason for Visit Reason for Visit: Diagnoses Atherosclerotic heart disease of [place] coronary artery without angina pectoris (06/21/24) Other ill-defined heart diseases (06/21/24) Hypotension, unspecified (06/21/24) Acute kidney failure, unspecified (06/21/24) Other specified abnormal findings of blood chemistry (06/21/24) Subjective Subjective Patient seen still awaiting transfer to a fdc facility. Diagnostic data reviewed significant for potassium of 3.4 replacement given Objective Data Objective Data Vital Signs: Vital Signs Temp Pulse Resp BP Pulse Ox O2 Del Method O2 Flow Rate 97.9 F 91 14 132/77 H 97 CPAP 2 06/28/24 08:36 06/28/24 08:36 06/28/24 08:36 06/28/24 08:36 06/28/24 08:36 06/28/24 08:36 06/24/24 07:47 Oxygen Flow Rate (L/min) 2 Oxygen Delivery Method CPAP Weight: 77.5 kg Body Mass Index (BMI) 27.6 Intake & Output: Intake and Output for Last 24 Hours 06/26/24 06/27/24 06/28/24 23:59 23:59 23:59 Intake Total 1120 / 1120 480 / 480 Output Total 450 / 450 1120 / 1120 0 / 0 Balance 670 / 670 -640 / -640 0 / 0 Lab / Micro Data 06/28/24 10:30 06/28/24 10:30 Micro: Microbiology 06/21/24 16:20 Blood Culture (Wb) - Anticubital Right Blood Culture - Final No growth in 5 days. 06/21/24 15:51 Blood Culture (Wb) - Anticubital Right Blood Culture - Final No growth in 5 days. 06/21/24 18:25 Urine, Catheterized Urine Culture - Final Culture exhibits no growth. Rhythm Strip Rhythm Strip: Sinus Rhythm Physical Exam Narrative GENERAL: cooperative HEENT: Atraumatic; normocephalic EYES; Anicteric, Normal Conjunctiva NECK; supple, normal thyroid, RESPIRATORY: Diminished to auscultation CARDIOVASCULAR: Regular S1 S2, GI: soft, normoactive bowel sounds, : No Renal angle tenderness; EXTREMITIES: No edema, no clubbing, MUSCULOSKELETAL: no muscle wasting NEURO: Awake; no lateralizing signs. SKIN: No Rash PSYCH; Flat affect Assessment & Plan Assessment/Plan (1) ELLYN (acute kidney injury): (2) Hypotension: PLAN: Plan Patient is a 79-year-old gentleman with recent diagnosis of ST segment elevation [place] underwent successful left heart catheterization with PCI with balloon angioplasty and IVUS. Was discharged on 06/20/2024 presented back the following day With lightheadedness dizziness and confusion.was diagnosed with hypotension with ELLYN admitted to a monitored bed for subsequent management 1. Hypovolemia ? Secondary to recent adjustment of patient medications admitted to a monitored bed resuscitated with IV fluids septic shock was ruled out -06/26/2024; BP stable ? 06/27/2024 patient denies any lightheadedness no dizziness blood pressure remained stable 2. Recent admission for acute STEMI ? Patient underwent left heart catheterization on 06/18/2024 which demonstrated 99% in-stent thrombosis of proximal LAD s/p successful percutaneous intervention with balloon angioplasty and IVUS. Patient was discharged home on guideline directed medical therapy 3. Leukocytosis ? Reactive. Cultures including urine and blood negative to date 4. Chronic congestive heart failure with reduced ejection fraction ? Secondary to recent STEMI. LV gram during cath showed estimated EF of 30%. A transthoracic echo ordered did show severe LV systolic dysfunction. Estimated LVEF 20 to 25%. Anterior, apical and inferior akinesis. Mild focal aortic valve thickening. There is Mild focal posterior mitral annular calcification 5. Coronary artery disease ? Patient is on guideline directed medical therapy 6. Essential hypertension ? Antihypertensives held given his presentation 7. Acute kidney injury ? Baseline creatinine from 06/20/2024 was 1.09 creatinine as of 06/21/2024 was 2.17 on admission rehydrated with subsequent monitoring of electrolytes ordered 8. Recent diagnosis of hematuria with left-sided hydronephrosis ? Patient underwent ureteral stent placement by on 06/15/2024 ? 06/26/2024;Patient did develop flank pain as well as hematuria USG did show Moderate left hydronephrosis. Appears increased compared to prior CT. No hydronephrosis on the right. Urinary bladder wall thickening.given his recent stent placement consult was placed to Dr Salguero with urology. ? 06/27/2024 denies any further flank pain no hematuria 9. History of prostate CA ? Currently stable 10. GERD Is on PPI 11. Peripheral arterial disease ? Patient is on antiplatelet as well as atorvastatin continued 12. Glaucoma ? Patient is on brimonidine?timolol eyedrops continue 13. DVT prophylaxis ? On enoxaparin 14. Physical deconditioning ? Requested for PT OT eval and social sciences chair to assist with discharge planning ? 06/27/2024; awaiting transfer to a fdc facility pending insurance approval 15. Hypokalemia -Corrected per protocol Time spent in the patient's overall evaluation,decision-making process, review of diagnostic data, adjustment of management, discussion with other providers, nursing nursing and ancillary staff involved in patient's care documentation, 36 Minutes Charges/Coding Visit Charges Inpatient E&M: 41695 Subs Hosp L2
[2024-06-28] MEDS: Donepezil HCl 5 MG Tablet PO (10:11)
[2024-06-28] MEDS: Lisinopril 2.5 MG Tablet PO (10:11)
[2024-06-28] MEDS: Aspirin E.C. 81 MG Tablet PO (10:11)
[2024-06-28] MEDS: Metoprolol(XL)Succ 25 MG Tablet PO (10:11)
[2024-06-28] MEDS: Pantoprazole Sodium 40 MG Tablet PO (10:11)
[2024-06-28] MEDS: Potassium Chloride Oral Tablet 10 MEQ PO (10:11)
[2024-06-28] MEDS: Empagliflozin 10 MG Tablet PO (10:12)
[2024-06-28] MEDS: Furosemide 20 MG Tablet PO (10:12)
[2024-06-28] MEDS: Clopidogrel Bisulfate 75 MG Tablet PO (10:12)
[2024-06-28] MEDS: BRIMONIDINE 0.2% 5ML BOTTLE 1 DRP OPHTHALMIC ×2 (10:13→21:03)
[2024-06-28] MEDS: Timolol 0.5% 5ML OPTH.BTL 1 DRP OPHTHALMIC ×2 (10:13→21:02)
[2024-06-28 10:44] LABS: Absolute Lymphocyte Count 1.46 X10^3/uL (0.83-4.51); Absolute Neutrophil Count 10.6 X10^3/uL (2.0-7.7); Basophil# 0.06 X10^3/uL; Basophil% 0.4 % (0-1); Eosinophil# 0.33 X10^3/uL; Eosinophils% 2.5 % (0-5); Hematocrit 36.6 % (40-54); Hemoglobin 11.8 g/dL (13.0-16.5); Lymphocyte # 1.46 X10^3/ul (0.83-4.51); Lymphocyte % 10.9 % (19-41); Mean Corp Hgb Conc 32.2 g/dL (32-36); Mean Corpuscular Volume 93.1 fL (80-94); Mean Platelet Vol. 10.9 fl (6.2-12.0); Monocyte# 0.85 X10^3/uL; Monocyte% 6.3 % (0-10); NRBC Flagged by Analyzer 0 % (0-5); Neutrophil % 79.1 % (47-70); Platelet Count 326 K/mm3 (150-450); RBC Distribution Width CV 12.7 % (11.6-14.6); RBC Distribution Width SD 43.8 fl (35.1-43.9); Red Blood Count 3.93 M/mm3 (4.6-6.2); White Blood Count 13.4 K/mm3 (4.4-11.0)
[2024-06-28 11:08] LABS: Anion Gap 7 (5-15); BUN 17 mg/dL (7-18); BUN/Creat Ratio 19.3 RATIO (10-20); Calcium,Total 8.7 mg/dL (8.5-10.1); Chloride 103 mmol/L (98-107); Creatinine, Serum 0.88 mg/dL (0.70-1.30); EST Glomerular Filtration Rate 88 mL/min (>60); Est Glom Filt Rate - Afr Amer 107 mL/min (>60); Estimated Creatinine Clearance 65.61 ml/min; Glucose 115 mg/dL (74-106); Magnesium 2.2 mg/dL (1.6-2.6); Potassium 3.2 mmol/L (3.5-5.1); Sodium Level 135 mmol/L (136-145)
[2024-06-28 11:13] LABS: Phosphorus 2.5 mg/dL (2.5-4.9)
--- NOTE | 2024-06-28 12:38 | CASEMGMT ---
Discharge Planning Updates sent to [facility]. Precert remains pending. Jess Oliveira DC Planning Asst.
[2024-06-28] MEDS: Enoxaparin 40 MG/0.4 ML Syringe SC (13:14)
[2024-06-28] MEDS: Potassium Chloride Oral Tablet 20 MEQ PO ×2 (13:14→18:09)
[2024-06-28] MEDS: Ensure Plus High Protein 120 ML LIQUID PO ×2 (13:15→17:40)
--- NOTE | 2024-06-28 15:59 | CASEMGMT ---
Addendum entered by Kym Troy 06/29/24 15:02: JOHNY QUIROZ updated by [facility] that they are able to accept patient with planned start of care for Tuesday, discharge plan updated Original Note: JOHNY QUIROZ made referral to [facility] in preparation for SNF denial, awaiting acceptance. CM will continue to follow this patient and plan for a safe discharge.
[2024-06-28] MEDS: Senna/Docusate Sodium 1 Tablet PO ×2 (16:13→21:02)
[2024-06-28] MEDS: Polyethylene Glycol 3350 17 GM PACKET PO (16:13)
[2024-06-28] MEDS: Tamsulosin HCl 0.4 MG Capsule PO (21:02)
[2024-06-28] MEDS: Atorvastatin Calcium 40 MG Tablet PO (21:02)
[2024-06-28] MEDS: LATANOPROSTENE BUNOD 0.024% 1 DRP OPHTHALMIC (21:03)
[2024-06-29 03:04] VITALS: BP 124/71; PULSE 92; RESP 18; TEMP 36.4; O2SAT 97
[2024-06-29 03:46] VITALS: BMI 27.4
[2024-06-29 05:37] LABS: Anion Gap 5 (5-15); BUN 15 mg/dL (7-18); BUN/Creat Ratio 17.5 RATIO (10-20); Calcium,Total 8.4 mg/dL (8.5-10.1); Chloride 106 mmol/L (98-107); Creatinine, Serum 0.86 mg/dL (0.70-1.30); EST Glomerular Filtration Rate 91 mL/min (>60); Est Glom Filt Rate - Afr Amer 110 mL/min (>60); Estimated Creatinine Clearance 67.02 ml/min; Glucose 107 mg/dL (74-106); Potassium 4.3 mmol/L (3.5-5.1); Sodium Level 137 mmol/L (136-145)
[2024-06-29] MEDS: Dorzolamide 2% 10ml Bottle 1 DRP OPHTHALMIC ×2 (05:53→14:09)
--- NOTE | 2024-06-29 07:40 | PN.HOSP_ITS ---
Reason for Visit Reason for Visit: Diagnoses Atherosclerotic heart disease of [place] coronary artery without angina pectoris (06/21/24) Other ill-defined heart diseases (06/21/24) Hypotension, unspecified (06/21/24) Acute kidney failure, unspecified (06/21/24) Other specified abnormal findings of blood chemistry (06/21/24) Subjective Subjective Patient seen did complain of constipation the day prior was placed on a bowel regimen with good response Objective Data Objective Data Vital Signs: Vital Signs Temp Pulse Resp BP Pulse Ox O2 Del Method O2 Flow Rate 97.5 F L 92 18 124/71 H 97 CPAP 2 06/29/24 03:04 06/29/24 03:04 06/29/24 03:04 06/29/24 03:04 06/29/24 03:04 06/29/24 03:04 06/24/24 07:47 Oxygen Flow Rate (L/min) 2 Oxygen Delivery Method CPAP Weight: 77.2 kg Body Mass Index (BMI) 27.4 Intake & Output: Intake and Output for Last 24 Hours 06/27/24 06/28/24 06/29/24 23:59 23:59 23:59 Intake Total 480 / 480 400 / 400 500 / 500 Output Total 1120 / 1120 0 / 0 Balance -640 / -640 400 / 400 500 / 500 Lab / Micro Data 06/29/24 04:49 06/29/24 04:49 Labs: Laboratory Results - last 24 hr 06/28/24 10:30: WBC 13.4 H, RBC 3.93 L, Hgb 11.8 L, Hct 36.6 L, MCV 93.1, MCH 30.0, MCHC 32.2, RDW Std Deviation 43.8, RDW Coeff of [place] 12.7, Plt Count 326, MPV 10.9, Immature Gran % (Auto) 0.800, Neut % (Auto) 79.1 H, Lymph % (Auto) 10.9 L, [place] % (Auto) 6.3, Eos % (Auto) 2.5, Baso % (Auto) 0.4, Absolute Neuts (auto) 10.6 H, Absolute Lymphs (auto) 1.46, Nucleated RBC % 0, Sodium 135 L, P otassium 3.2 L, Chloride 103, Carbon Dioxide 25.0, Anion Gap 7, BUN 17, Creatinine 0.88, Estim Creat Clear Calc 65.61, Est GFR (MDRD) Af Amer 107, Est GFR (MDRD) Non-Af 88, BUN/Creatinine Ratio 19.3, Glucose 115 H, Calcium 8.7, Phosphorus 2.5, Magnesium 2.2 06/29/24 04:49: WBC 12.9 H, RBC 3.68 L, Hgb 11.1 L, Hct 34.2 L, MCV 92.9, MCH 30.2, MCHC 32.5, RDW Std Deviation 43.0, RDW Coeff of [place] 12.6, Plt Count 346, MPV 10.5, Immature Gran % (Auto) 0.600, Neut % (Auto) 72.8 H, Lymph % (Auto) 15.5 L, [place] % (Auto) 8.4, Eos % (Auto) 2.2, Baso % (Auto) 0.5, Absolute Neuts (auto) 9.4 H, Absolute Lymphs (auto) 2.00, Nucleated RBC % 0, Sodium 137, Potassium 4.3, Chloride 106, Carbon Dioxide 25.0, Anion Gap 5, BUN 15, Creatinine 0.86, Estim Creat Clear Calc 67.02, Est GFR (MDRD) Af Amer 110, Est GFR (MDRD) Non-Af 91, BUN/Creatinine Ratio 17.5, Glucose 107 H, Calcium 8.4 L Micro: Microbiology 06/21/24 16:20 Blood Culture (Wb) - Anticubital Right Blood Culture - Final No growth in 5 days. 06/21/24 15:51 Blood Culture (Wb) - Anticubital Right Blood Culture - Final No growth in 5 days. 06/21/24 18:25 Urine, Catheterized Urine Culture - Final Culture exhibits no growth. Rhythm Strip Rhythm Strip: Sinus Rhythm Physical Exam Narrative GENERAL: cooperative HEENT: Atraumatic; normocephalic EYES; Anicteric, Normal Conjunctiva NECK; supple, normal thyroid, RESPIRATORY: Diminished to auscultation CARDIOVASCULAR: Regular S1 S2, GI: soft, normoactive bowel sounds, : No Renal angle tenderness; EXTREMITIES: No edema, no clubbing, MUSCULOSKELETAL: no muscle wasting NEURO: Awake; no lateralizing signs. SKIN: No Rash PSYCH; Flat affect Assessment & Plan Assessment/Plan (1) ELLYN (acute kidney injury): (2) Hypotension: PLAN: Plan Patient is a 79-year-old gentleman with recent diagnosis of ST segment elevation [place] underwent successful left heart catheterization with PCI with balloon angioplasty and IVUS. Was discharged on 06/20/2024 presented back the following day With lightheadedness dizziness and confusion.was diagnosed with hypotension with ELLYN admitted to a monitored bed for subsequent management 1. Hypovolemia ? Secondary to recent adjustment of patient medications admitted to a monitored bed resuscitated with IV fluids septic shock was ruled out -06/26/2024; BP stable ? 06/27/2024 patient denies any lightheadedness no dizziness blood pressure remained stable 2. Recent admission for acute STEMI ? Patient underwent left heart catheterization on 06/18/2024 which demonstrated 99% in-stent thrombosis of proximal LAD s/p successful percutaneous intervention with balloon angioplasty and IVUS. Patient was discharged home on guideline directed medical therapy 3. Leukocytosis ? Reactive. Cultures including urine and blood negative to date 4. Chronic congestive heart failure with reduced ejection fraction ? Secondary to recent STEMI. LV gram during cath showed estimated EF of 30%. A transthoracic echo ordered did show severe LV systolic dysfunction. Estimated LVEF 20 to 25%. Anterior, apical and inferior akinesis. Mild focal aortic valve thickening. There is Mild focal posterior mitral annular calcification 5. Coronary artery disease ? Patient is on guideline directed medical therapy 6. Essential hypertension ? Antihypertensives held given his presentation 7. Acute kidney injury ? Baseline creatinine from 06/20/2024 was 1.09 creatinine as of 06/21/2024 was 2.17 on admission rehydrated with subsequent monitoring of electrolytes ordered 8. Recent diagnosis of hematuria with left-sided hydronephrosis ? Patient underwent ureteral stent placement by on 06/15/2024 ? 06/26/2024;Patient did develop flank pain as well as hematuria USG did show Moderate left hydronephrosis. Appears increased compared to prior CT. No hydronephrosis on the right. Urinary bladder wall thickening.given his recent stent placement consult was placed to Dr Salguero with urology. ? 06/27/2024 denies any further flank pain no hematuria 9. History of prostate CA ? Currently stable 10. GERD Is on PPI 11. Peripheral arterial disease ? Patient is on antiplatelet as well as atorvastatin continued 12. Glaucoma ? Patient is on brimonidine?timolol eyedrops continue 13. DVT prophylaxis ? On enoxaparin 14. Physical deconditioning ? Requested for PT OT eval and social work lecturer to assist with discharge planning ? 06/27/2024; awaiting transfer to a shelter facility pending insurance approval 15. Hypokalemia -Corrected per protocol 16. Constipation Responded to bowel regimen Time spent in the patient's overall evaluation,decision-making process, review of diagnostic data, adjustment of management, discussion with other providers, nursing nursing and ancillary staff involved in patient's care documentation, 36 Minutes Charges/Coding Visit Charges Inpatient E&M: 78751 Subs Hosp L2
[2024-06-29 09:18] VITALS: BP 132/74; PULSE 96; RESP 14; TEMP 36.4; O2SAT 100
[2024-06-29 09:20] VITALS: PULSE 96
[2024-06-29] MEDS: Pantoprazole Sodium 40 MG Tablet PO (09:20)
[2024-06-29] MEDS: Potassium Chloride Oral Tablet 10 MEQ PO (09:20)
[2024-06-29] MEDS: Furosemide 20 MG Tablet PO (09:20)
[2024-06-29] MEDS: Aspirin E.C. 81 MG Tablet PO (09:20)
[2024-06-29] MEDS: Donepezil HCl 5 MG Tablet PO (09:20)
[2024-06-29] MEDS: Metoprolol(XL)Succ 25 MG Tablet PO (09:20)
[2024-06-29] MEDS: Empagliflozin 10 MG Tablet PO (09:20)
[2024-06-29] MEDS: Lisinopril 2.5 MG Tablet PO (09:21)
[2024-06-29] MEDS: BRIMONIDINE 0.2% 5ML BOTTLE 1 DRP OPHTHALMIC (09:21)
[2024-06-29] MEDS: Enoxaparin 40 MG/0.4 ML Syringe SC (09:21)
[2024-06-29] MEDS: Clopidogrel Bisulfate 75 MG Tablet PO (09:21)
[2024-06-29] MEDS: Senna/Docusate Sodium 1 Tablet PO (09:22)
[2024-06-29] MEDS: Timolol 0.5% 5ML OPTH.BTL 1 DRP OPHTHALMIC (09:22)
[2024-06-29 14:02] VITALS: BP 118/70; PULSE 94; RESP 12; TEMP 36.6; O2SAT 99
[2024-06-29] MEDS: oxyCODONE 5 MG Tablet 10 MG PO (14:07)
[2024-06-29] MEDS: Acetaminophen 325 MG Tablet 650 MG PO (14:08)
--- NOTE | 2024-06-29 14:42 | CASEMGMT ---
Patient has been denied for [facility]. SW notified patient's daughter Meliza that patient was denied. The plan will be for patient to go home with [facility] and after home health is done a referral will be made to [facility]. PENNY notified physician. Plan: D/c home with [facility] Sn[facility], PT, OT, and Social Work. María Cox DIGITAL ART DIRECTOR LEE ANN
--- NOTE | 2024-06-29 14:44 | DS.PCM_ITS ---
Providers Date of Admission: 06/21/24 Date of Discharge: 06/29/24 Primary Care Physician: RAQUEL PACE Consultations 06/21/24 21:23 Consult: Cardiology Routine Consulting Provider: Marilu Decker Reason for Consult: recent STEMI w/ HFrEF and now concern for LV aneurysm EMERGENT Consult: No Notified: Yes Date Notified: 06/21/24 Time Notified: 07:30 Method of Notification: Text 06/25/24 18:14 Consult: Urology Routine Consulting Provider: Delgado Salguero Reason for Consult: hematuria hx stent placement EMERGENT Consult: No Notified: Yes Date Notified: 06/25/24 Time Notified: 20:38 Method of Notification: Verbal Reason For Visit: CONCERN FOR UTI W/ SEPSIS, RECENT ID AND HFREF Diagnosis Discharge Diagnosis (1) ELLYN (acute kidney injury): Status: Acute Code(s): N17.9 - Acute kidney failure, unspecified (2) Hypotension: Status: Acute Code(s): I95.9 - Hypotension, unspecified Plan Patient is a 79-year-old gentleman with recent diagnosis of ST segment elevation ID underwent successful left heart catheterization with PCI with balloon angioplasty and IVUS. Was discharged on 06/20/2024 presented back the following day With lightheadedness dizziness and confusion.was diagnosed with hypotension with ELLYN admitted to a monitored bed for subsequent management 1. Hypovolemia ? Secondary to recent adjustment of patient medications admitted to a monitored bed resuscitated with IV fluids septic shock was ruled out -06/26/2024; BP stable ? 06/27/2024 patient denies any lightheadedness no dizziness blood pressure remained stable 2. Recent admission for acute STEMI ? Patient underwent left heart catheterization on 06/18/2024 which demonstrated 99% in-stent thrombosis of proximal LAD s/p successful percutaneous intervention with balloon angioplasty and IVUS. Patient was discharged home on guideline directed medical therapy 3. Leukocytosis ? Reactive. Cultures including urine and blood negative to date 4. Chronic congestive heart failure with reduced ejection fraction ? Secondary to recent STEMI. LV gram during cath showed estimated EF of 30%. A transthoracic echo ordered did show severe LV systolic dysfunction. Estimated LVEF 20 to 25%. Anterior, apical and inferior akinesis. Mild focal aortic valve thickening. There is Mild focal posterior mitral annular calcification 5. Coronary artery disease ? Patient is on guideline directed medical therapy 6. Essential hypertension ? Antihypertensives held given his presentation 7. Acute kidney injury ? Baseline creatinine from 06/20/2024 was 1.09 creatinine as of 06/21/2024 was 2.17 on admission rehydrated with subsequent monitoring of electrolytes ordered 8. Recent diagnosis of hematuria with left-sided hydronephrosis ? Patient underwent ureteral stent placement by on 06/15/2024 ? 06/26/2024;Patient did develop flank pain as well as hematuria USG did show Moderate left hydronephrosis. Appears increased compared to prior CT. No hydronephrosis on the right. Urinary bladder wall thickening.given his recent stent placement consult was placed to Dr Salguero with urology. ? 06/27/2024 denies any further flank pain no hematuria 9. History of prostate CA ? Currently stable 10. GERD Is on PPI 11. Peripheral arterial disease ? Patient is on antiplatelet as well as atorvastatin continued 12. Glaucoma ? Patient is on brimonidine?timolol eyedrops continue 13. DVT prophylaxis ? On enoxaparin 14. Physical deconditioning ? Requested for PT OT eval and social media campaign manager to assist with discharge planning ? 06/27/2024; awaiting transfer to a half-way facility pending insurance approval, denied transfer to SNF, was discharged home with Home health 15. Hypokalemia -Corrected per protocol 16. Constipation Responded to bowel regimen Time spent in the patient's overall evaluation,decision-making process, review of diagnostic data, adjustment of management, discussion with other providers, nursing nursing and ancillary staff involved in patient's care documentation, 36 Minutes Medications at Discharge Home Medications timolol maleate 0.5 % eye gel forming solution (Timoptic-XE) 1 drp [facility] eye health 07/28/16 oxycodone-acetaminophen 10 mg-325 mg tablet 10 mg PO BID PRN Pain Score 1-05/0303/20/19 dorzolamide 2 % eye drops 1 drp ophthalmic (eye) TID glaucoma 06/30/23 brimonidine 0.2 %-timolol 0.5 % eye drops 1 drp ophthalmic (eye) BID 11/07/23 latanoprostene bunod 0.024 % eye drops (Vyzulta) 1 drp ophthalmic (eye) DAILY 11/07/23 aspirin 81 mg tablet,delayed release 81 mg PO DAILY@0800 #0 tabs 11/27/24 atorvastatin 40 mg tablet 40 mg PO QHS #30 tabs 06/20/24 clopidogrel 75 mg tablet 75 mg PO DAILY #30 tabs 06/20/24 donepezil 5 mg tablet (Aricept) 5 mg PO DAILY #30 tabs 06/20/24 empagliflozin 10 mg tablet (Jardiance) 10 mg PO DAILY #30 tabs 06/20/24 nitroglycerin 0.4 mg sublingual tablet 0.4 mg sublingual Q5M PRN Chest Pain #25 tabs 06/20/24 pantoprazole 40 mg tablet,delayed release 40 mg PO DAILY #30 tabs 06/20/24 potassium chloride 20 mEq tablet,extended release(part/cryst) 20 meq PO DAILYCM #30 tabs 06/20/24 tamsulosin 0.4 mg capsule 0.4 mg PO QHS #30 caps 06/20/24 furosemide 20 mg tablet 20 mg PO DAILY #90 tabs 06/29/24 lisinopril 2.5 mg tablet 2.5 mg PO DAILY #90 tabs 06/29/24 metoprolol succinate 25 mg tablet,extended release 24 hr 25 mg PO DAILY #90 tabs 06/29/24 Physical Exam Narrative GENERAL: cooperative HEENT: Atraumatic; normocephalic EYES; Anicteric, Normal Conjunctiva NECK; supple, normal thyroid, RESPIRATORY: Diminished to auscultation CARDIOVASCULAR: Regular S1 S2, GI: soft, normoactive bowel sounds, : No Renal angle tenderness; EXTREMITIES: No edema, no clubbing, MUSCULOSKELETAL: no muscle wasting NEURO: Awake; no lateralizing signs. SKIN: No Rash PSYCH; Flat affect Weight / BMI Weight Weight: 77.2 kg Body Mass Index (BMI) 27.4 ABG / Lab / Microbiology Data 06/29/24 04:49 06/29/24 04:49 Laboratory: Laboratory Results - last 24 hr 06/29/24 04:49: WBC 12.9 H, RBC 3.68 L, Hgb 11.1 L, Hct 34.2 L, MCV 92.9, MCH 30.2, MCHC 32.5, RDW Std Deviation 43.0, RDW Coeff of Suki 12.6, Plt Count 346, MPV 10.5, Immature Gran % (Auto) 0.600, Neut % (Auto) 72.8 H, Lymph % (Auto) 15.5 L, [place] % (Auto) 8.4, Eos % (Auto) 2.2, Baso % (Auto) 0.5, Absolute Neuts (auto) 9.4 H, Absolute Lymphs (auto) 2.00, Nucleated RBC % 0, Sodium 137, Potassium 4.3, Chloride 106, Carbon Dioxide 25.0, Anion Gap 5, BUN 15, Creatinine 0.86, Estim Creat Clear Calc 67.02, Est GFR (MDRD) Af Amer 110, Est GFR (MDRD) Non-Af 91, BUN/Creatinine Ratio 17.5, Glucose 107 H, Calcium 8.4 L Microbiology: Microbiology 06/21/24 16:20 Blood Culture (Wb) - Anticubital Right Blood Culture - Final No growth in 5 days. 06/21/24 15:51 Blood Culture (Wb) - Anticubital Right Blood Culture - Final No growth in 5 days. 06/21/24 18:25 Urine, Catheterized Urine Culture - Final Culture exhibits no growth. D/C Instructions Discharge Diet: No restrictions Discharge Activity: Return to Normal Activity Call your doctor if you observe: Fever of 101 or Higher, Shortness of breath, Fainting spells and Chest pain DC O2, CPAP, BIPAP Needs PSN CPAP & BiPAP: BiPAP & CPAP Settings per PSN Mode CPAP 06/28/24 21:35 Bipap Delivery Device Face Mask 06/28/24 21:35 BiPAP Expiratory Pressure 10 06/28/24 21:35 Additional Home O2 Discharge instructions: No DC home with Oxygen: No Meaningful Use Info Meaningful Use Meaningful Use Diagnoses (Choose all that apply): None applicable Ischemic Stroke Statin Dosing Therapy Reference: STATIN DOSE THERAPY REFERENCE: * Patients > 75 years receive moderate or high dose statin therapy. * Patients 75 years or YOUNGER should receive HIGH intensity statin dose unless contraindicated. You will be required to document reason for non-treatment if statin daily dose does not meet guidelines. HIGH DOSE STATIN THERAPY DAILY Atorvastatin > than or = to 40 mg Rosuvastatin > than or = to 20 mg Amlodipine + Atorvastatin > than or = to 2.5/40 mg Ezetimibe + Simvastatin 10/80 mg Simvastatin 80mg Discharge Plan Admission Admit Date/Time: 06/21/24 20:25 Attending Provider: Ulisses Meza Primary Care Provider: ENRICO BELLAMY Consulting Providers: Rudi Anne; Marilu Decker; Aldo Roy; Delgado Salguero Discharge Orders/Prescriptions Prescriptions: New furosemide 20 mg Tablet 20 mg PO DAILY Qty: 90 0RF metoprolol succinate 25 mg Tablet Extended Release 24 Hr 25 mg PO DAILY Qty: 90 0RF lisinopril 2.5 mg Tablet 2.5 mg PO DAILY Qty: 90 0RF Continued timolol maleate [Timoptic-XE] 1 DROP gel forming solution 1 drp Each Eye QHS oxycodone-acetaminophen 1 EACH tablet 10 mg PO BID PRN (Reason: Pain Score 1-10/10) Patient Comments: TAKE 1 TABLET BY MOUTH EVERY 12 HOURS dorzolamide 2 % drops 1 drp ophthalmic (eye) TID Patient Comments: INSTILL 1 DROP INTO BOTH EYES 3 TIMES A DAY brimonidine-timolol 0.2-0.5 % drops 1 drp ophthalmic (eye) BID Vyzulta 0.024 % drops 1 drp ophthalmic (eye) DAILY atorvastatin 40 mg Tablet 40 mg PO QHS Qty: 30 0RF clopidogrel 75 mg Tablet 75 mg PO DAILY Qty: 30 0RF aspirin 81 mg Tablet,Delayed Release (Dr/Ec) 81 mg PO DAILY@0800 Qty: 0 0RF potassium chloride 20 mEq Tablet,Er Particles/Crystals 20 meq PO DAILYCM Qty: 30 0RF pantoprazole 40 mg Tablet,Delayed Release (Dr/Ec) 40 mg PO DAILY Qty: 30 0RF nitroglycerin 0.4 mg Tablet, Sublingual 0.4 mg sublingual Q5M PRN (Reason: Chest Pain) Qty: 25 0RF Jardiance 10 mg Tablet 10 mg PO DAILY Qty: 30 0RF tamsulosin 0.4 mg Capsule 0.4 mg PO QHS Qty: 30 0RF donepezil [Aricept] 5 mg tablet 5 mg PO DAILY Qty: 30 0RF Rx Instructions: after one month, increase to 10 mg daily Discontinued metoprolol succinate 100 mg tablet extended release 24 hr 150 mg PO DAILY Rx Instructions: 100 mg QAM, 50 mg QHS amlodipine 10 mg tablet 10 mg PO DAILY Patient Comments: TAKE 1 TABLET BY MOUTH EVERY DAY furosemide 40 mg Tablet 40 mg PO DAILY Qty: 30 0RF isosorbide mononitrate 60 mg Tablet Extended Release 24 Hr 60 mg PO DAILY Qty: 30 0RF metoprolol succinate 50 mg tablet extended release 24 hr 150 mg PO DAILY Qty: 90 0RF Rx Instructions: three tablets every morning spironolactone [Aldactone] 25 mg tablet 25 mg PO DAILY Qty: 30 0RF lisinopril 40 mg tablet 40 mg PO DAILY Qty: 30 0RF cephalexin 500 mg capsule 500 mg PO TID Qty: 15 0RF Referrals / Follow Up: ENRICO BELLAMY CRNP [Primary Care Provider] - Within 2 Weeks Disposition Disposition (needs filled in before D/C Order can be placed): Home Health Service Charges/Coding Visit Charges Inpatient E&M: 87557 Disch Hosp >30min
== END 2024-06-29 19:15 | disposition home health service (06) | DRG 640 ==
LOC: ED 16:02 → ICU 20:42 → PCU 06-23 14:56
PROVIDERS: Admitting Provider Hospitalist; Emergency Provider Emergency Medicine; PCP Nurse Practitioner Adult Health; Referring Provider Emergency Medicine; Visit Provider Internal Medicine
DX: E86.1 Hypovolemia (principal); I21.3 ST elevation (STEMI) myocardial infarction of unspecified site; I50.22 Chronic systolic (congestive) heart failure; N17.9 Acute kidney failure, unspecified; N13.30 Unspecified hydronephrosis; I11.0 Hypertensive heart disease with heart failure; J44.9 Chronic obstructive pulmonary disease, unspecified; I73.9 Peripheral vascular disease, unspecified; I34.81 Nonrheumatic mitral (valve) annulus calcification; I95.9 Hypotension, unspecified; E87.6 Hypokalemia; E78.5 Hyperlipidemia, unspecified; I25.10 Atherosclerotic heart disease of native coronary artery without angina pectoris; E80.6 Other disorders of bilirubin metabolism; K21.9 Gastro-esophageal reflux disease without esophagitis; Z95.5 Presence of coronary angioplasty implant and graft; Z86.16 Personal history of COVID-19; Z79.891 Long term (current) use of opiate analgesic; Z79.82 Long term (current) use of aspirin; Z87.891 Personal history of nicotine dependence; R53.81 Other malaise; R41.82 Altered mental status, unspecified; G89.29 Other chronic pain; H40.9 Unspecified glaucoma; Z79.84 Long term (current) use of oral hypoglycemic drugs; Z79.02 Long term (current) use of antithrombotics/antiplatelets; Z85.46 Personal history of malignant neoplasm of prostate
CPT/HCPCS: 36415; 70450; 71045; 74176; 76770; 80048; 80053; 81001; 83605; 83735; 84100; 84484; 85025; 85027; 85610; 85730; 87040; 87086; 92526; 92610; 93005; 93306; 93308; 94003; 94660; 97116; 97163; 97166; 97530; 97535; 97803; 99285; J7030; J7040; J7050; Q9957; A4216; C8924; C8929; J2405

== ENCOUNTER → 2024-07-02 | Outpatient (CLI) | payer MEDICARE, SELFPAY ==
[2024-07-03 09:31] LABS: Color, Urine Brown (Yellow); Glucose, Dipstick 1000 mg/dl (Normal); Ketone-Dipstick Negative (Negative); Leukocyte Esterase-Dipstick Negative /ul (Negative); Nitrite-Dipstick Negative (Negative); Occult Blood-Urine 250 /ul (Negative); Protein-Dipstick 500 mg/dl (Negative); Specific Gravity, Urine 1.015 (1.002-1.030); Urine Bilirubin Dipstick Negative (Negative); Urine Clarity Cloudy (Clear); Urine Urobilinogen Normal (Normal)
== END | disposition home or self-care (01) ==
PROVIDERS: PCP Nurse Practitioner Adult Health; Referring Provider Nurse Practitioner Adult Health; Visit Provider Nurse Practitioner Adult Health
DX: N17.9 Acute kidney failure, unspecified (principal)
CPT/HCPCS: 81002; 87086

== ENCOUNTER → 2024-07-03 | Outpatient (CLI) | payer MEDICARE, SELFPAY ==
[2024-07-03 14:07] LABS: PSA,Total- Diagnostic 0.98 ng/mL (0.0-4.0)
== END | disposition home or self-care (01) ==
LOC: LAB 11:58
PROVIDERS: PCP Nurse Practitioner Adult Health; Referring Provider Urology; Visit Provider Urology
DX: C61 Malignant neoplasm of prostate (principal)
CPT/HCPCS: 36415; 84153

== ENCOUNTER 2024-11-02 09:22 | Day surgery (SDC) | payer MEDICARE, SELFPAY ==
--- NOTE | 2024-10-22 13:36 | PAT.ANESEVAL ---
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 When Was Last Pacemaker Check QUESTION #4 FULL TEXT: You/Your Family Experience fever (hyperthermia) with Anesthesia Last Oral Intake Last Oral intake: Last Oral Intake NPO since Meds taken in AM with sips of water? Meds patient instructed to take am of surgery PONV PONV - repairer recreational vehicle: PONV - repairer recreational vehicle Female No 10/22/24 11:22 HX of Motion Sickness No 10/22/24 11:22 HX of N/V After Surgery No 10/22/24 11:22 Non-Smoker Yes 10/22/24 11:22 Duration of Surgery greater No 10/22/24 11:22 than 60 minutes Number of Risk Factors 1 10/22/24 11:22 PONV Score Low Risk 10/22/24 11:22 Height & Weight Height & Weight: Anesthesia: Height & Weight Height 5 ft 6 in 06/28/24 14:49 Respiratory Assessment Respiratory Assessment - repairer recreational vehicle: Respiratory Tract Infection Hx - repairer recreational vehicle Hx Respiratory Tract Infection No 10/22/24 11:22 STOP Sleep Apnea STOP Sleep Apnea - repairer recreational vehicle: STOP Sleep Apnea - repairer recreational vehicle Hx Hypertension Yes: CONTROLLED WITH MED 10/22/24 11:22 Hx Sleep Apnea Yes 10/22/24 11:22 CPAP Yes 10/22/24 11:22 BIPAP No 10/22/24 11:22 Do you snore loudly (louder than talking or can be heard Do you often feel tired/ fatigued/ sleepy during daytime? Has anyone observed you stop breathing during sleep? STOP Results Positive 10/22/24 11:22 QUESTION #5 FULL TEXT : Do you snore loudly (louder than talking or can be heard through closed doors)? Tobacco Use History Tobacco Use History - repairer recreational vehicle: Tobacco Use History - repairer recreational vehicle Tobacco Use Non-smoker 08/18/21 15:25 Smoking Status Former smoker 10/22/24 11:22 Hx Tobacco Use No 10/22/24 11:22 Years Smoking Packs Smoked per Day Smoking Cessation Date was Yes - quit smoking within 15 10/22/24 11:22 within the last 15 years years Hx Smoking Cessation Date 01/11/12 10/22/24 11:22 Hx Smoking Cessation No 10/22/24 11:22 Counseling Hematologic Medial History Hematologic Hx - repairer recreational vehicle: Hematologic Medical Hx - senior manager creative services Hx of Blood Transfusion No 10/22/24 11:22 Hx of Transfusion in last 3 No 10/22/24 11:22 Months Date of Last Transfusion (if within last 3 months) Ever experience any problems No 10/22/24 11:22 with transfusion(s)? Specify any problems Hx of Preganancy in last 3 N/A 10/22/24 11:22 Months Nurse Filling Out Transfusion NBUCHER 10/22/24 11:22 & Questions: Date: 10/22/24 10/22/24 11:22 Time: 11:24 10/22/24 11:22 Patient unable to answer at this time (ie. confused, unrespo /Reproduction History /Reproductive History - repairer recreational vehicle: /Reproductive Hx- repairer recreational vehicle Hx Now No 10/22/24 11:22 Gestational Age (in weeks): EDC: Hx Hx Para Hx Section SAB No 10/22/24 11:22 [facility] Medical History (Updated 10/22/24 @ 11:32 by Kailey Streeter) ST elevation (STEMI) myocardial infarction involving left anterior descending coronary artery (~06/18/24) Wears dentures Wears glasses Cancer Arthritis High cholesterol Migraine headache Injury of head and neck History of IBS Gastric reflux Former smoker Sleep apnea History of stress test History of echocardiogram Hypertension Cardiology follow-up encounter History of irregular heartbeat Osteoarthritis Panic attack MARIE (dyspnea on exertion) MVP (mitral valve prolapse) Left carotid bruit Ganglion cyst Edema of both lower extremities CPAP (continuous positive airway pressure) dependence Chronic pain Cataract Bleeding nevus Back pain Aortic valve disease COVID-19 NSTEMI (non-ST elevated myocardial infarction) PAD (peripheral artery disease) Hyperlipidemia Glaucoma Near syncope Hyperglycemia Tobacco user Gastroesophageal reflux disease COPD (chronic obstructive pulmonary disease) Hx pulmonary embolism HTN (hypertension) Prostate cancer Home Medications ?Medication ?Instructions ?Recorded ?Last Taken ?Type timolol maleate 0.5 % eye gel 1 drp QHS eye health 07/28/16 01/10/20 History forming solution (Timoptic-XE) oxycodone-acetaminophen 10 mg-325 10 mg PO BID PRN Pain Score 1-05/0303/20/19 01/08/20 History mg tablet dorzolamide 2 % eye drops 1 drp ophthalmic (eye) TID glaucoma 06/30/23 Unknown History brimonidine 0.2 %-timolol 0.5 % 1 drp ophthalmic (eye) BID 11/07/23 Unknown History eye drops latanoprostene bunod 0.024 % eye 1 drp ophthalmic (eye) DAILY 11/07/23 Unknown History drops (Vyzulta) aspirin 81 mg tablet,delayed 81 mg PO DAILY@0800 #0 tabs 06/20/24 Unknown Rx release atorvastatin 40 mg tablet 40 mg PO QHS #30 tabs 06/20/24 Unknown Rx clopidogrel 75 mg tablet 75 mg PO DAILY #30 tabs 06/20/24 Unknown Rx donepezil 5 mg tablet (Aricept) 5 mg PO DAILY #30 tabs 06/20/24 Unknown Rx empagliflozin 10 mg tablet 10 mg PO DAILY #30 tabs 06/20/24 Unknown Rx (Jardiance) nitroglycerin 0.4 mg sublingual 0.4 mg sublingual Q5M PRN Chest 06/20/24 Unknown Rx tablet Pain #25 tabs pantoprazole 40 mg tablet,delayed 40 mg PO DAILY #30 tabs 06/20/24 Unknown Rx release potassium chloride 20 mEq 20 meq PO DAILYCM #30 tabs 06/20/24 Unknown Rx tablet,extended release(part/cryst) tamsulosin 0.4 mg capsule 0.4 mg PO QHS #30 caps 06/20/24 Unknown Rx furosemide 20 mg tablet 20 mg PO DAILY #90 tabs 06/29/24 Unknown Rx lisinopril 2.5 mg tablet 2.5 mg PO DAILY #90 tabs 06/29/24 Unknown Rx metoprolol succinate 25 mg 25 mg PO DAILY #90 tabs 06/29/24 Unknown Rx tablet,extended release 24 hr Allergy/AdvReac Type Severity Reaction Status Date / Time Penicillins Allergy Unknown Verified 10/22/24 11:19 Sulfa (Sulfonamide Allergy Unknown Verified 10/22/24 11:19 Antibiotics) carvedilol AdvReac Severe Respiratory Verified 10/22/24 11:19 distress hydralazine AdvReac Intermediate Dizziness Verified 10/22/24 11:19 hydrocodone (From Vicodin) AdvReac Intermediate Other Verified 10/22/24 11:19 morphine AdvReac Intermediate Shortness Verified 10/22/24 11:19 of breath lorazepam AdvReac Other Verified 10/22/24 11:19 Family History Mother COPD (chronic obstructive pulmonary disease) Father Cancer Myocardial infarction Surgical History History of PTCA (06/18/24) Hx of cardiac catheterization (~11/08/23) Stented coronary artery (~11/08/23) Hx of eye surgery Hx of tonsillectomy Social History household members: none housing: apartment number of children: 1 current occupational status: retired Smoking Status: Former smoker alcohol intake: never substance use type: does not use caffeine: Yes (all day) Type: coffee Audit: Pertinent Findings Pertinent Findings EKG Perinent findings: June 21, 2024. Normal sinus rhythm 87 bpm. Critical test result STEMI. Anterior septal infarct, possibly acute. T wave abnormality, consider lateral ischemia. Persistent ST elevation. Echo (EF%) pertinent findings: 06/21/2024 severe left ventricular system dysfunction. EF 20 to 25%. Anterior, apical and inferior akinesis. Heart catheterization pertinent findings: 06/18/2024. PTCA proximal LAD. Graft. Single-vessel. STEMI. Patient placed on 12 months of Plavix. Current Visit Impressions Current Visit Impressions: Patient is to have cystoscopy stent placement. May consider EKG on day of procedure for a baseline evaluation prior to MAC local. If patient is having symptoms may consider delay of procedure if needed. Chart reviewed late afternoon 10/22/2024. Recommendation Anesthesia Recommendation Anesthesia recommendation: OPTIMIZED for anesthesia
--- NOTE | 2024-11-02 09:28 | PCM.PRE.AN2 ---
ASA Classification* ASA Classification ASA Classification: 3 Assessment & Plan Anesthesia* Anesthesia Assessment Anesthesia Assessment: Discussed sedation and/or anesthesia options, risks, benefits, and alternatives with patient/parents/legal guardian/POA. Questions invited. The patient/parents/legal guardian/POA seems to understand and agrees to proceed with anesthesia plan. Reviewed the physical assessment, medical history, allergy history and patient home medications list prior to surgery/procedure/anesthetic and documented any changes. Performed airway and anesthesia risk assessments. Anesthesia Type Anesthesia Type: MAC (GA bkup) Anesthesia Focused Assessment* Airway Assessment Mouth opens: >3 cm Mallampati Score: II Focused Labs Anesthesia Preop lab: CBC WBC 13.4 K/mm3 (4.4-11.0) H 06/28/24 10:30 06/28/24 RBC 3.93 M/mm3 (4.6-6.2) L 06/28/24 10:30 06/28/24 Hgb 11.8 g/dL (13.0-16.5) L 06/28/24 10:30 06/28/24 Hct 36.6 % (40-54) L 06/28/24 10:30 06/28/24 Plt Count 326 K/mm3 (150-450) 06/28/24 10:30 06/28/24 CHEMISTRY Potassium 4.3 mmol/L (3.5-5.1) 06/29/24 04:49 06/29/24 Sodium 137 mmol/L (136-145) 06/29/24 04:49 06/29/24 Magnesium 2.2 mg/dL (1.6-2.6) 06/28/24 10:30 06/28/24 Phosphorus 2.5 mg/dL (2.5-4.9) 06/28/24 10:30 06/28/24 BUN 15 mg/dL (7-18) 06/29/24 04:49 06/29/24 Creatinine 0.86 mg/dL (0.70-1.30) 06/29/24 04:49 06/29/24 Glucose 107 mg/dL (74-106) H 06/29/24 04:49 06/29/24 TSH 0.543 uIU/mL (0.358-3.740) 06/19/24 05:00 06/19/24 COAG PT 16.7 SECONDS (11.7-14.9) H 06/21/24 15:51 06/21/24 Pre-Assessment Diagnosis/Proposed Procedure Planned Operative Procedure(s): LEFT CYSTO STENT Anesthesia History Anesthesia History - pharmacy assistant: Anesthesia History - pharmacy assistant Hx Hospitalization Yes: 06/2025 CHEST PAIN 10/22/24 11:22 Any Problems With Anesthesia No 10/22/24 11:22 Cholinesterase deficiency No 10/22/24 11:22 You/Your Family Experience No 10/22/24 11:22 fever (hyperthermia) with Relationship Recent Exposure to Contagious No 06/15/24 12:27 Disease Does patient have nerve No 10/22/24 11:22 stimulator Patient instructed to have device shut off --Does patient have Pacemaker or ICD? When Was Last Pacemaker Check QUESTION #4 FULL TEXT: You/Your Family Experience fever (hyperthermia) with Anesthesia Last Oral Intake Last Oral intake: Last Oral Intake NPO since Meds taken in AM with sips of water? Meds patient instructed to take am of surgery PONV PONV - pharmacy assistant: PONV - pharmacy assistant Female No 10/22/24 11:22 HX of Motion Sickness No 10/22/24 11:22 HX of N/V After Surgery No 10/22/24 11:22 Non-Smoker Yes 10/22/24 11:22 Duration of Surgery greater No 10/22/24 11:22 than 60 minutes Number of Risk Factors 1 10/22/24 11:22 PONV Score Low Risk 10/22/24 11:22 Height & Weight Height & Weight: Anesthesia: Height & Weight Height 5 ft 6 in 11/01/24 09:23 Weight: 88.451 kg 11/01/24 09:23 Respiratory Assessment Respiratory Assessment - pharmacy assistant: Respiratory Tract Infection Hx - pharmacy assistant Hx Respiratory Tract Infection No 10/22/24 11:22 STOP Sleep Apnea STOP Sleep Apnea - pharmacy assistant: STOP Sleep Apnea - pharmacy assistant Hx Hypertension Yes: CONTROLLED WITH MED 10/22/24 11:22 Hx Sleep Apnea Yes 10/22/24 11:22 CPAP Yes 10/22/24 11:22 BIPAP No 10/22/24 11:22 Do you snore loudly (louder than talking or can be heard Do you often feel tired/ fatigued/ sleepy during daytime? Has anyone observed you stop breathing during sleep? STOP Results Positive 10/22/24 11:22 QUESTION #5 FULL TEXT : Do you snore loudly (louder than talking or can be heard through closed doors)? Tobacco Use History Tobacco Use History - pharmacy assistant: Tobacco Use History - pharmacy assistant Tobacco Use Non-smoker 08/18/21 15:25 Smoking Status Former smoker 10/22/24 11:22 Hx Tobacco Use No 10/22/24 11:22 Years Smoking Packs Smoked per Day Smoking Cessation Date was Yes - quit smoking within 15 10/22/24 11:22 within the last 15 years years Hx Smoking Cessation Date 01/11/12 10/22/24 11:22 Hx Smoking Cessation No 10/22/24 11:22 Counseling Hematologic Medial History Hematologic Hx - pharmacy assistant: Hematologic Medical Hx - severity of illness coordinator Hx of Blood Transfusion No 10/22/24 11:22 Hx of Transfusion in last 3 No 10/22/24 11:22 Months Date of Last Transfusion (if within last 3 months) Ever experience any problems No 10/22/24 11:22 with transfusion(s)? Specify any problems Hx of Preganancy in last 3 N/A 10/22/24 11:22 Months Nurse Filling Out Transfusion NBUCHER 10/22/24 11:22 & Questions: Date: 10/22/24 10/22/24 11:22 Time: 11:24 10/22/24 11:22 Patient unable to answer at this time (ie. confused, unrespo /Reproduction History /Reproductive History - pharmacy assistant: /Reproductive Hx- pharmacy assistant Hx Now No 10/22/24 11:22 Gestational Age (in weeks): EDC: Hx Hx Para Hx Section SAB No 10/22/24 11:22 Active Medications Active Medications: Current Medications Generic Name Dose Route Start Last Admin Trade Name Freq PRN Reason Stop Dose Admin Cefazolin Sodium 2 gm/ N/A 20 mls @ 400 mls/hr 11/02/24 12:45 IV 11/02/24 12:47 X1 ONE [facility] Medical History ST elevation (STEMI) myocardial infarction involving left anterior descending coronary artery (~06/18/24) Wears dentures Wears glasses Cancer Arthritis High cholesterol Migraine headache Injury of head and neck History of IBS Gastric reflux Former smoker Sleep apnea History of stress test History of echocardiogram Hypertension Cardiology follow-up encounter History of irregular heartbeat Osteoarthritis Panic attack MARIE (dyspnea on exertion) MVP (mitral valve prolapse) Left carotid bruit Ganglion cyst Edema of both lower extremities CPAP (continuous positive airway pressure) dependence Chronic pain Cataract Bleeding nevus Back pain Aortic valve disease COVID-19 NSTEMI (non-ST elevated myocardial infarction) PAD (peripheral artery disease) Hyperlipidemia Glaucoma Near syncope Hyperglycemia Tobacco user Gastroesophageal reflux disease COPD (chronic obstructive pulmonary disease) Hx pulmonary embolism HTN (hypertension) Prostate cancer Home Medications ?Medication ?Instructions ?Recorded ?Last Taken ?Type timolol maleate 0.5 % eye gel 1 drp [facility] eye health 07/28/16 01/10/20 History forming solution (Timoptic-XE) oxycodone-acetaminophen 10 mg-325 10 mg PO BID PRN Pain Score 1-05/0303/20/19 01/08/20 History mg tablet dorzolamide 2 % eye drops 1 drp ophthalmic (eye) TID glaucoma 06/30/23 Unknown History brimonidine 0.2 %-timolol 0.5 % 1 drp ophthalmic (eye) BID 11/07/23 Unknown History eye drops latanoprostene bunod 0.024 % eye 1 drp ophthalmic (eye) DAILY 11/07/23 Unknown History drops (Vyzulta) aspirin 81 mg tablet,delayed 81 mg PO DAILY@0800 #0 tabs 06/20/24 Unknown Rx release atorvastatin 40 mg tablet 40 mg PO QHS #30 tabs 06/20/24 Unknown Rx clopidogrel 75 mg tablet 75 mg PO DAILY #30 tabs 06/20/24 Unknown Rx donepezil 5 mg tablet (Aricept) 5 mg PO DAILY #30 tabs 06/20/24 Unknown Rx empagliflozin 10 mg tablet 10 mg PO DAILY #30 tabs 06/20/24 Unknown Rx (Jardiance) nitroglycerin 0.4 mg sublingual 0.4 mg sublingual Q5M PRN Chest 06/20/24 Unknown Rx tablet Pain #25 tabs pantoprazole 40 mg tablet,delayed 40 mg PO DAILY #30 tabs 06/20/24 Unknown Rx release potassium chloride 20 mEq 20 meq PO DAILYCM #30 tabs 06/20/24 Unknown Rx tablet,extended release(part/cryst) tamsulosin 0.4 mg capsule 0.4 mg PO QHS #30 caps 06/20/24 Unknown Rx furosemide 20 mg tablet 20 mg PO DAILY #90 tabs 06/29/24 Unknown Rx lisinopril 2.5 mg tablet 2.5 mg PO DAILY #90 tabs 06/29/24 Unknown Rx metoprolol succinate 25 mg 25 mg PO DAILY #90 tabs 06/29/24 Unknown Rx tablet,extended release 24 hr Allergy/AdvReac Type Severity Reaction Status Date / Time Penicillins Allergy Unknown Verified 10/22/24 11:19 Sulfa (Sulfonamide Allergy Unknown Verified 10/22/24 11:19 Antibiotics) carvedilol AdvReac Severe Respiratory Verified 10/22/24 11:19 distress hydralazine AdvReac Intermediate Dizziness Verified 10/22/24 11:19 hydrocodone (From Vicodin) AdvReac Intermediate Other Verified 10/22/24 11:19 morphine AdvReac Intermediate Shortness Verified 10/22/24 11:19 of breath lorazepam AdvReac Other Verified 10/22/24 11:19 Family History Mother COPD (chronic obstructive pulmonary disease) Father Cancer Myocardial infarction Surgical History History of PTCA (06/18/24) Hx of cardiac catheterization (~11/08/23) Stented coronary artery (~11/08/23) Hx of eye surgery Hx of tonsillectomy Social History household members: none housing: apartment number of children: 1 current occupational status: retired Smoking Status: Former smoker alcohol intake: never substance use type: does not use caffeine: Yes (all day) Type: coffee Review of Systems (Anesthesia) ROS Narrative System reviewed and no additional complaints, except as documented.
[2024-11-02 10:03] VITALS: BP 145/58; PULSE 69; RESP 16; TEMP 37.4; O2SAT 100; BMI 26.3
[2024-11-02] MEDS: 0.9% Normal Saline (1000mL) 1,000 ML 15 ML IV (10:06)
--- NOTE | 2024-11-02 10:23 | HP.PCM_ITS ---
[facility] - General General Date of Service: 11/02/24 Chief Complaint: Left ureteral obstruction from radiation. 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 Manage just with the stent [facility] Narrative TRI FRANK, is a 79 M who presents presents for cystoscopy stent change left side [facility] Medical History ST elevation (STEMI) myocardial infarction involving left anterior descending coronary artery (~06/18/24) Wears dentures Wears glasses Cancer Arthritis High cholesterol Migraine headache Injury of head and neck History of IBS Gastric reflux Former smoker Sleep apnea History of stress test History of echocardiogram Hypertension Cardiology follow-up encounter History of irregular heartbeat Osteoarthritis Panic attack MARIE (dyspnea on exertion) MVP (mitral valve prolapse) Left carotid bruit Ganglion cyst Edema of both lower extremities CPAP (continuous positive airway pressure) dependence Chronic pain Cataract Bleeding nevus Back pain Aortic valve disease COVID-19 NSTEMI (non-ST elevated myocardial infarction) PAD (peripheral artery disease) Hyperlipidemia Glaucoma Near syncope Hyperglycemia Tobacco user Gastroesophageal reflux disease COPD (chronic obstructive pulmonary disease) Hx pulmonary embolism HTN (hypertension) Prostate cancer Home Medications ?Medication ?Instructions ?Recorded ?Last Taken ?Type timolol maleate 0.5 % eye gel 1 drp [facility] eye health 11/0811/01/24 History forming solution (Timoptic-XE) oxycodone-acetaminophen 10 mg-325 10 mg PO BID PRN Claudia n Score 1-05/0303/20/19 11/01/24 History mg tablet dorzolamide 2 % eye drops 1 drp ophthalmic (eye) TID g laucoma 06/30/23 11/01/24 History brimonidine 0.2 %-timolol 0.5 % 1 drp ophthalmic (eye) BID 11/07/23 11/01/24 History eye drops latanoprostene bunod 0.024 % eye 1 drp ophthalmic (eye ) DAILY 11/07/23 11/01/24 History drops (Vyzulta) aspirin 81 mg tablet,delayed 81 mg PO DAILY@0800 #0 ta bs 06/20/24 10/25/24 Rx release atorvastatin 40 mg tablet 40 mg PO QHS #30 tabs 11/01/24 Rx clopidogrel 75 mg tablet 75 mg PO DAILY #30 tabs 05/2610/25/24 Rx donepezil 5 mg tablet (Aricept) 5 mg PO DAILY #30 tabs 06/20/24 11/01/24 Rx empagliflozin 10 mg tablet 10 mg PO DAILY #30 tabs 10/29/24 Rx (Jardiance) nitroglycerin 0.4 mg sublingual 0.4 mg sublingual Q5M PRN Chest 06/20/24 11/01/24 Rx tablet Pain #25 tabs pantoprazole 40 mg tablet,delayed 40 mg PO DAILY #30 t abs 06/20/24 11/01/24 Rx release potassium chloride 20 mEq 20 meq PO DAILYCM #30 tabs 1 08/20/23 11/01/24 Rx tablet,extended release(part/cryst) tamsulosin 0.4 mg capsule 0.4 mg PO QHS #30 caps 06/2011/01/24 Rx furosemide 20 mg tablet 20 mg PO DAILY #90 tabs 01/1511/01/24 Rx lisinopril 2.5 mg tablet 2.5 mg PO DAILY #90 tabs 01/1511/01/24 Rx metoprolol succinate 25 mg 25 mg PO DAILY #90 tabs 01/1511/01/24 Rx tablet,extended release 24 hr Allergy/AdvReac Type Severity Reaction Status Date / Time Penicillins Allergy Unknown Verified 11/02/24 10:01 Sulfa (Sulfonamide Allergy Unknown Verified 11/02/24 10:01 Antibiotics) carvedilol AdvReac Severe Respiratory Verified 11/02/24 10:01 distress hydralazine AdvReac Intermediate Dizziness Verified 11/02/24 10:01 hydrocodone (From Vicodin) AdvReac Intermediate Other Verified 11/02/24 10:01 morphine AdvReac Intermediate Shortness Verified 11/02/24 10:01 of breath lorazepam AdvReac Other Verified 11/02/24 10:01 Family History Mother COPD (chronic obstructive pulmonary disease) Father Cancer Myocardial infarction Surgical History History of PTCA (06/18/24) Hx of cardiac catheterization (~11/08/23) Stented coronary artery (~11/08/23) Hx of eye surgery Hx of tonsillectomy Social History household members: none housing: apartment number of children: 1 current occupational status: retired Smoking Status: Former smoker alcohol intake: never substance use type: does not use caffeine: Yes (all day) Type: coffee Vital Signs Vital Signs Vital Signs: 11/02/24 10:03 11/02/24 10:03 Temperature 99.4 F H Temperature Source Temporal Pulse Rate 69 Respiratory Rate 16 Respiratory Pattern Normal Blood Pressure 145/58 H Blood Pressure Mean 87 Blood Pressure Source Monitor Blood Pressure Position Semi-Fowlers Blood Pressure Location Left Arm Pulse Ox 100 Oxygen Delivery Method Room Air Weight Weight: 71.849 kg Body Mass Index (BMI) 26.3
--- NOTE | 2024-11-02 10:24 | PCM.DC ---
Discharge Instructions Diet Discharge Diet: No restrictions DC O2, CPAP, BIPAP needs Home O2 Discharge instructions: No Dressing / Incision Discharge Activity: Return to Normal Activity and May Not Drive (while taking narcotic pain medications.) Dressing / Incision Call your doctor if you observe: Fever of 101 or Higher Follow Up Care Please Follow Up With: Delgado Salguero MD When: Call [phone] for an appointment Test Results: Test results from this visit will be discussed in further detail at your follow-up appointment, if applicable. Discharge Plan Admission Primary Reason for Your Visit: stent change Attending Provider: Delgado Salguero Primary Care Provider: ENRICO BELLAMY Instructions Print Language: Djib[place]ian Discharge Orders/Prescriptions Prescriptions: Continued timolol maleate [Timoptic-XE] 1 DROP gel forming solution 1 drp Each Eye QHS oxycodone-acetaminophen 1 EACH tablet 10 mg PO BID PRN (Reason: Pain Score 1-10/10) Patient Comments: TAKE 1 TABLET BY MOUTH EVERY 12 HOURS dorzolamide 2 % drops 1 drp ophthalmic (eye) TID Patient Comments: INSTILL 1 DROP INTO BOTH EYES 3 TIMES A DAY brimonidine-timolol 0.2-0.5 % drops 1 drp ophthalmic (eye) BID Vyzulta 0.024 % drops 1 drp ophthalmic (eye) DAILY atorvastatin 40 mg Tablet 40 mg PO QHS Qty: 30 0RF clopidogrel 75 mg Tablet 75 mg PO DAILY Qty: 30 0RF aspirin 81 mg Tablet,Delayed Release (Dr/Ec) 81 mg PO DAILY@0800 Qty: 0 0RF potassium chloride 20 mEq Tablet,Er Particles/Crystals 20 meq PO DAILYCM Qty: 30 0RF pantoprazole 40 mg Tablet,Delayed Release (Dr/Ec) 40 mg PO DAILY Qty: 30 0RF nitroglycerin 0.4 mg Tablet, Sublingual 0.4 mg sublingual Q5M PRN (Reason: Chest Pain) Qty: 25 0RF Jardiance 10 mg Tablet 10 mg PO DAILY Qty: 30 0RF tamsulosin 0.4 mg Capsule 0.4 mg PO QHS Qty: 30 0RF donepezil [Aricept] 5 mg tablet 5 mg PO DAILY Qty: 30 0RF Rx Instructions: after one month, increase to 10 mg daily furosemide 20 mg Tablet 20 mg PO DAILY Qty: 90 0RF metoprolol succinate 25 mg Tablet Extended Release 24 Hr 25 mg PO DAILY Qty: 90 0RF lisinopril 2.5 mg Tablet 2.5 mg PO DAILY Qty: 90 0RF Referrals / Follow Up: ENRICO BELLAMY CRNP [Primary Care Provider] - Disposition Disposition (needs filled in before D/C Order can be placed): Home, Self Care
--- NOTE | 2024-11-02 10:25 | PCM.OPRPT ---
Operative Report (Standard) Operative Information Date of Procedure: 11/02/24 Pre-Operative Diagnosis: Left ureteral stricture and stent, prostate cancer Post-Operative Diagnosis: Same Surgery/Procedure Performed: Cystoscopy and left stent change, left retrograde pyelogram microbiology technician: No Type of Anesthesia: General RN Documented Start/Stop Times: Operation Date: 11/02/24 11:25 Case Time Into Pre-Op 11/02/24 09:37 Out of Pre-Op 11/02/24 10:18 Procedure Start Time: 10:25 Procedure Stop Time: 10:36 Select all DRAINS/GRAFTS/IMPLANTS that apply: Drains Drain details: 6 x 26 stent left side Estimated Blood Loss: 0 Specimen collected: No Description of surgery: Patient was taken back to the operating room after induction of general anesthesia, the patient was placed in dorsolithotomy position. The urethra and genitals were prepped and draped in usual sterile fashion. Using a 21 [place] rigid cystourethroscope the entire length of the urethra was normal then went into the bladder. Identified the trigone the left and right ureteral orifice. I then cannulated the left ureteral orifice and advanced a wire up into the kidney. I then backloaded a 5 [place] open ended catheter over the wire and injected contrast to delineate the anatomy. After the retrograde was performed I then used fluoroscopic images and guidance to advanced a wire up into the kidney and over the 0.038 glidewire I advanced a 6 [place] by 26 cm double pigtail stent. I then pulled the 0.038 Glidewire off and the stent coiled in the kidney bladder good position. The bladder was then drained. We confirmed the position of the stent by fluoroscopy. Patient anesthetic was reversed and was taken back to the PACU in good condition. Surgical Findings: left stent changed Complications Complications: No
[2024-11-02] MEDS: Cefazolin 2 GM in Syringe IV (10:29)
[2024-11-02] MEDS: Lidocaine Jelly 2% 20 ML Syringe (URO-JET) 1 APPLIC (10:30)
[2024-11-02 10:41] VITALS: BP 140/71; BP 145/58; PULSE 92; RESP 18; TEMP 36.6; O2SAT 99
--- NOTE | 2024-11-02 10:44 | PCM.POST.ANE ---
Anesthesia: Postop Eval I Current Vital Signs Temperature: 97.9 F Pulse Rate: 90 Blood Pressure: 140/71 Respiratory Rate: 16 Pulse Ox: 98 Oxygen Delivery Method: Room Air Assessment Airway patent: Yes Spontaneous unlabored respirations: Yes Mental status: Awake and Calm nausea: No Vomiting: No Anesthesia Complication: No Fluid Hydration Crystalloid volume administer (ml): 200 Total IV fluid infused: 200 Progress Note Anesthesia document: Postop Eval 1 completed: Yes
[2024-11-02 10:45] VITALS: BP 140/71; BP 145/58; BP 145/82; PULSE 61; PULSE 90; RESP 16; TEMP 36.6; O2SAT 100; O2SAT 98
[2024-11-02 10:50] VITALS: BP 145/58; BP 168/98; PULSE 71; RESP 18; O2SAT 100
[2024-11-02 10:57] VITALS: BP 145/58; BP 154/61; PULSE 54; RESP 16; TEMP 37.1; O2SAT 99
--- NOTE | 2024-11-02 11:12 | POSTOPAN2_ITS ---
Anesthesia Postop Eval I Sum Postop Eval Completion status Anesthesia document: Postop Eval 1 completed: Yes Anesthesia Postop Eval I Summary Anesthesia Postop Eval I Summary: Anesthesia Postop Eval I: Assessment Summary Airway patent Yes 11/02/24 10:45 HEAVY DUTY TRUCK [email or web address] Spontaneous unlabored Yes 11/02/24 10:45 HEAVY DUTY TRUCK [email or web address] respirations Mental status Awake,Calm 11/02/24 10:45 HEAVY DUTY TRUCK [email or web address] nausea No 11/02/24 10:45 HEAVY DUTY TRUCK [email or web address] Vomiting No 11/02/24 10:45 HEAVY DUTY TRUCK [email or web address] Anesthesia Postop Eval I: Fluid Summary Crystalloid volume administer 200 11/02/24 10:45 HEAVY DUTY TRUCK [email or web address] (ml) Colloids volume administered ( ml) Blood Product volume administered (ml) Total IV fluid infused 200 11/02/24 10:45 HEAVY DUTY TRUCK [email or web address] Anesthesia Postop Eval I: Summary Notes Anesthesia Complication No 11/02/24 10:45 HEAVY DUTY TRUCK [email or web address] Anesthesia Complication Comment: Post-operative progress note Anesthesia: Postop Eval II Evaluation Mental status: Awake Pain Level: 0 nausea: No Vomiting: No
--- NOTE | 2024-11-02 11:12 | PCM.POSTANE2 ---
Anesthesia Postop Eval I Sum Postop Eval Completion status Anesthesia document: Postop Eval 1 completed: Yes Anesthesia Postop Eval I Summary Anesthesia Postop Eval I Summary: Anesthesia Postop Eval I: Assessment Summary Airway patent Yes 11/02/24 10:45 [email or web address] Spontaneous unlabored Yes 11/02/24 10:45 [email or web address] respirations Mental status Awake,Calm 11/02/24 10:45 [email or web address] nausea No 11/02/24 10:45 [email or web address] Vomiting No 11/02/24 10:45 [email or web address] Anesthesia Postop Eval I: Fluid Summary Crystalloid volume administer 200 11/02/24 10:45 [email or web address] (ml) Colloids volume administered ( ml) Blood Product volume administered (ml) Total IV fluid infused 200 11/02/24 10:45 [email or web address] Anesthesia Postop Eval I: Summary Notes Anesthesia Complication No 11/02/24 10:45 [email or web address] Anesthesia Complication Comment: Post-operative progress note Anesthesia: Postop Eval II Evaluation Mental status: Awake Pain Level: 0 nausea: No Vomiting: No
[2024-11-02 11:37] VITALS: BP 145/58
== END 2024-11-02 11:37 | disposition home or self-care (01) ==
LOC: SDC 09:26 → AC 09:28
PROVIDERS: PCP Nurse Practitioner Adult Health; Referring Provider Urology; Visit Provider Urology
PROC: (CPT 52332; principal; 2024-11-02 11:15)
DX: C61 Malignant neoplasm of prostate (principal); J44.9 Chronic obstructive pulmonary disease, unspecified; Z79.02 Long term (current) use of antithrombotics/antiplatelets; E78.00 Pure hypercholesterolemia, unspecified; N13.5 Crossing vessel and stricture of ureter without hydronephrosis; Z86.16 Personal history of COVID-19; K21.9 Gastro-esophageal reflux disease without esophagitis; I10 Essential (primary) hypertension; G89.29 Other chronic pain; Z87.891 Personal history of nicotine dependence; Z79.82 Long term (current) use of aspirin; I25.2 Old myocardial infarction; Z86.711 Personal history of pulmonary embolism; Z99.89 Dependence on other enabling machines and devices; Z95.5 Presence of coronary angioplasty implant and graft
CPT/HCPCS: 52332; 52351; 00910; 76000; C1769; C2617

== ENCOUNTER → 2025-05-13 | Outpatient (CLI) | payer MEDICARE, SELFPAY ==
[2025-05-13 09:14] LABS: PSA,Total- Diagnostic 0.21 ng/mL (0.00-4.00)
== END | disposition home or self-care (01) ==
LOC: LAB 08:11
PROVIDERS: PCP Nurse Practitioner Adult Health; Referring Provider Nurse Practitioner; Visit Provider Nurse Practitioner
DX: C61 Malignant neoplasm of prostate (principal)
CPT/HCPCS: 36415; 84153

== ENCOUNTER → 2025-05-20 | Outpatient (CLI) | payer MEDICARE, SELFPAY ==
[2025-05-20 10:24] LABS: Hematocrit 43.6 % (40-54); Hemoglobin 14.2 g/dL (13.0-16.5); Mean Corp Hgb Conc 32.6 g/dL (32-36); Mean Corpuscular Volume 95.0 fL (80-94); Mean Platelet Vol. 11.6 fl (6.2-12.0); Platelet Count 205 K/mm3 (150-450); RBC Distribution Width CV 12.7 % (11.6-14.6); RBC Distribution Width SD 44.2 fl (35.1-43.9); Red Blood Count 4.59 M/mm3 (4.6-6.2); White Blood Count 8.2 K/mm3 (4.4-11.0)
[2025-05-20 10:50] LABS: Anion Gap 5 (5-15); BUN 11 mg/dL (4-19); BUN/Creat Ratio 13.5 RATIO (10-20); Calcium,Total 9.1 mg/dL (7.6-11.0); Carbon Dioxide 27.2 mmol/L (21.0-32.0); Chloride 104 mmol/L (98-108); Glucose 102 mg/dL (70-99); Potassium 4.9 mmol/L (3.3-5.1)
== END | disposition home or self-care (01) ==
LOC: LAB 09:44
PROVIDERS: PCP Nurse Practitioner Adult Health; Referring Provider Urology; Visit Provider Urology
DX: Z01.812 Encounter for preprocedural laboratory examination (principal)
CPT/HCPCS: 36415; 80048; 85027

== ENCOUNTER 2025-06-07 07:52 | Day surgery (SDC) | payer MEDICARE, SELFPAY ==
--- NOTE | 2025-06-03 15:30 | PAT.ANE_ITS ---
Pre-Assessment Diagnosis/Proposed Procedure Planned Operative Procedure(s): (L) Cysto,Insertion Stent Anesthesia History Anesthesia History - secret code expert: Anesthesia History - secret code expert Hx Hospitalization No 06/03/25 14:07 Any Problems With Anesthesia No 06/03/25 14:07 Cholinesterase deficiency No 06/03/25 14:07 You/Your Family Experience No 06/03/25 14:07 fever (hyperthermia) with Relationship Recent Exposure to Contagious No 11/02/24 10:03 Disease Does patient have nerve No 06/03/25 14:07 stimulator Patient instructed to have device shut off --Does patient have Pacemaker or ICD? When Was Last Pacemaker Check QUESTION #4 FULL TEXT: You/Your Family Experience fever (hyperthermia) with Anesthesia Last Oral Intake Last Oral intake: Last Oral Intake NPO since Meds taken in AM with sips of water? Meds patient instructed to take am of surgery PONV PONV - secret code expert: PONV - secret code expert Female No 06/03/25 14:07 HX of Motion Sickness No 06/03/25 14:07 HX of N/V After Surgery No 06/03/25 14:07 Non-Smoker Yes 06/03/25 14:07 Duration of Surgery greater No 06/03/25 14:07 than 60 minutes Number of Risk Factors 1 06/03/25 14:07 PONV Score Low Risk 06/03/25 14:07 Height & Weight Height & Weight: Anesthesia: Height & Weight Height 5 ft 5 in 11/02/24 10:03 Respiratory Assessment Respiratory Assessment - secret code expert: Respiratory Tract Infection Hx - secret code expert Hx Respiratory Tract Infection No 06/03/25 14:07 STOP Sleep Apnea STOP Sleep Apnea - secret code expert: STOP Sleep Apnea - secret code expert Hx Hypertension Yes: CONTROLLED WITH MED 06/03/25 14:07 Hx Sleep Apnea Yes 06/03/25 14:07 CPAP Yes 06/03/25 14:07 BIPAP No 06/03/25 14:07 Do you snore loudly (louder than talking or can be heard Do you often feel tired/ fatigued/ sleepy during daytime? Has anyone observed you stop breathing during sleep? STOP Results Positive 06/03/25 14:07 QUESTION #5 FULL TEXT : Do you snore loudly (louder than talking or can be heard through closed doors)? 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 Specify any problems Hx of Preganancy in last 3 N/A 06/03/25 14:07 Months Nurse Filling Out Transfusion GEOVANNA 06/03/25 14:07 & Questions: Date: 06/03/25 06/03/25 14:07 Time: 14:11 06/03/25 14:07 Patient unable to answer at this time (ie. 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 (~06/18/24) Wears dentures Wears glasses Cancer Arthritis High cholesterol Migraine headache Injury of head and neck History of IBS Gastric reflux Former smoker Sleep apnea History of stress test History of echocardiogram Hypertension Cardiology follow-up encounter History of irregular heartbeat Osteoarthritis Panic attack MARIE (dyspnea on exertion) MVP (mitral valve prolapse) Left carotid bruit Ganglion cyst Edema of both lower extremities CPAP (continuous positive airway pressure) dependence Chronic pain Cataract Bleeding nevus Back pain Aortic valve disease COVID-19 NSTEMI (non-ST elevated myocardial infarction) PAD (peripheral artery disease) Hyperlipidemia Glaucoma Near syncope Hyperglycemia Tobacco user Gastroesophageal reflux disease COPD (chronic obstructive pulmonary disease) Hx pulmonary embolism HTN (hypertension) Prostate cancer Home Medications Medication Instructions Recorded Last Taken Type timolol maleate 0.5 % eye gel 1 drp QHS eye health 11/0811/01/24 History forming solution (Timoptic-XE) oxycodone-acetaminophen 10 mg-325 10 mg PO BID PRN Claudia n Score 1-05/0303/20/19 11/01/24 History mg tablet dorzolamide 2 % eye drops 1 drp ophthalmic (eye) TID g laucoma 06/30/23 11/01/24 History brimonidine 0.2 %-timolol 0.5 % 1 drp ophthalmic (eye) BID 11/07/23 11/01/24 History eye drops latanoprostene bunod 0.024 % eye 1 drp ophthalmic (eye ) DAILY 11/07/23 11/01/24 History drops (Vyzulta) aspirin 81 mg tablet,delayed 81 mg PO DAILY@0800 #0 ta bs 06/20/24 06/03/25 Rx release atorvastatin 40 mg tablet 40 mg PO QHS #30 tabs 11/01/24 Rx clopidogrel 75 mg tablet 75 mg PO DAILY #30 tabs 05/2606/03/25 Rx empagliflozin 10 mg tablet 10 mg PO DAILY #30 tabs 06/03/25 Rx (Jardiance) nitroglycerin 0.4 mg sublingual 0.4 mg sublingual Q5M PRN Chest 06/20/24 11/01/24 Rx tablet Pain #25 tabs pantoprazole 40 mg tablet,delayed 40 mg PO DAILY #30 t abs 06/20/24 11/01/24 Rx release potassium chloride 20 mEq 20 meq PO DAILYCM #30 tabs 1 08/20/23 11/01/24 Rx tablet,extended release(part/cryst) tamsulosin 0.4 mg capsule 0.4 mg PO QHS #30 caps 06/2011/01/24 Rx furosemide 20 mg tablet 20 mg PO DAILY #90 tabs 12/01/1511/01/24 Rx lisinopril 2.5 mg tablet 2.5 mg PO DAILY #90 tabs 01/1511/01/24 Rx metoprolol succinate 25 mg 25 mg PO DAILY #90 tabs 01/1511/01/24 Rx tablet,extended release 24 hr donepezil 5 mg tablet (Aricept) 10 mg PO QHS 06/03/25 Unknown History Allergy/AdvReac Type Severity Reaction Status Date / Time Penicillins Allergy Unknown Verified 06/03/25 13:56 Sulfa (Sulfonamide Allergy Unknown Verified 06/03/25 13:56 Antibiotics) carvedilol AdvReac Severe Respiratory Verified 06/03/25 13:56 distress hydralazine AdvReac Intermediate Dizziness Verified 06/03/25 13:56 hydrocodone (From Vicodin) AdvReac Intermediate Other Verified 06/03/25 13:56 morphine AdvReac Intermediate Shortness Verified 06/03/25 13:56 of breath lorazepam AdvReac Other Verified 06/03/25 13:56 Family History Mother COPD (chronic obstructive pulmonary disease) Father Cancer Myocardial infarction Surgical History (Updated 06/03/25 @ 14:07 by Lissa Pérez) History of cystoscopy History of PTCA (06/18/24) Hx of cardiac catheterization (~11/08/23) Stented coronary artery (~11/08/23) Hx of eye surgery Hx of tonsillectomy Social History household members: none housing: apartment number of children: 1 current occupational status: retired Smoking Status: Former smoker alcohol intake: never substance use type: does not use caffeine: Yes (all day) Type: coffee Audit: Pertinent Findings HISTORY of Pertinent Findings History of Pertinent Findings: ST elevation (STEMI) myocardial infarction involving left anterior descending coronary artery: PLAN: Patient's STEMI was precipitated by a late occlusion of his LAD stent. He was subsequently revascularized but now has an ejection fraction in the 20% Pertinent Findings EKG Perinent findings: 05/2024: NSR Echo (EF%) pertinent findings: Echocardiogram 06/21/24 20:37 Interpretation Summary Severe LV systolic dysfunction. Estimated LVEF 20 to 25%. Anterior, apical and inferior akinesis. Mild focal aortic valve thickening. There is Mild focal posterior mitral annular calcification. Recommendation Anesthesia Recommendation Anesthesia recommendation: Anesthesia NOT approved Reason NOT optimized for anesthesia: Patient REQUIRES cardiac clearance. It has been one year since the patient has seen cardiology, during which he presented with significantly decreased EF (20%) and has a hx of massive RI on 06/18/2024. I would recommend patient seeing cardiology in person prior to presenting for anesthesia, however cardiac clearance from Dr. Decker or Dr. Mcbride would be reasonable. As per Dr. Mcbride, patient had a late thrombosis of LAD stent due to patient interrupting DAPT 10/2024. During his latest RI 05/2024, the patient was asked to follow up with cardiology after discharge, and was supposed to have a repeat echocardiogram, which he did neither of. While the patient had an anesthetic on 10/2024, the case was a MAC and these follow ups should have taken place. Given that he is a year since his cardiac event, he must be seen by cardiology and cleared prior to any anesthetic taking place. Follow up Details Consult Recommendation: Yes Consult Rec Details: Cardiology
--- NOTE | 2025-06-03 16:30 | PAT.ANE_ITS ---
Pre-Assessment Diagnosis/Proposed Procedure Planned Operative Procedure(s): (L) Cysto,Insertion Stent Anesthesia History Anesthesia History - air pollution specialist: Anesthesia History - air pollution specialist Hx Hospitalization No 06/03/25 14:07 Any Problems With Anesthesia No 06/03/25 14:07 Cholinesterase deficiency No 06/03/25 14:07 You/Your Family Experience No 06/03/25 14:07 fever (hyperthermia) with Relationship Recent Exposure to Contagious No 11/02/24 10:03 Disease Does patient have nerve No 06/03/25 14:07 stimulator Patient instructed to have device shut off --Does patient have Pacemaker or ICD? When Was Last Pacemaker Check QUESTION #4 FULL TEXT: You/Your Family Experience fever (hyperthermia) with Anesthesia Last Oral Intake Last Oral intake: Last Oral Intake NPO since Meds taken in AM with sips of water? Meds patient instructed to take am of surgery PONV PONV - air pollution specialist: PONV - air pollution specialist Female No 06/03/25 14:07 HX of Motion Sickness No 06/03/25 14:07 HX of N/V After Surgery No 06/03/25 14:07 Non-Smoker Yes 06/03/25 14:07 Duration of Surgery greater No 06/03/25 14:07 than 60 minutes Number of Risk Factors 1 06/03/25 14:07 PONV Score Low Risk 06/03/25 14:07 Height & Weight Height & Weight: Anesthesia: Height & Weight Height 5 ft 5 in 11/02/24 10:03 Respiratory Assessment Respiratory Assessment - air pollution specialist: Respiratory Tract Infection Hx - air pollution specialist Hx Respiratory Tract Infection No 06/03/25 14:07 STOP Sleep Apnea STOP Sleep Apnea - air pollution specialist: STOP Sleep Apnea - air pollution specialist Hx Hypertension Yes: CONTROLLED WITH MED 06/03/25 14:07 Hx Sleep Apnea Yes 06/03/25 14:07 CPAP Yes 06/03/25 14:07 BIPAP No 06/03/25 14:07 Do you snore loudly (louder than talking or can be heard Do you often feel tired/ fatigued/ sleepy during daytime? Has anyone observed you stop breathing during sleep? STOP Results Positive 06/03/25 14:07 QUESTION #5 FULL TEXT : Do you snore loudly (louder than talking or can be heard through closed doors)? 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 Specify any problems Hx of Preganancy in last 3 N/A 06/03/25 14:07 Months Nurse Filling Out Transfusion GEOVANNA 06/03/25 14:07 & Questions: Date: 06/03/25 06/03/25 14:07 Time: 14:11 06/03/25 14:07 Patient unable to answer at this time (ie. 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 (~06/18/24) Wears dentures Wears glasses Cancer Arthritis High cholesterol Migraine headache Injury of head and neck History of IBS Gastric reflux Former smoker Sleep apnea History of stress test History of echocardiogram Hypertension Cardiology follow-up encounter History of irregular heartbeat Osteoarthritis Panic attack MARIE (dyspnea on exertion) MVP (mitral valve prolapse) Left carotid bruit Ganglion cyst Edema of both lower extremities CPAP (continuous positive airway pressure) dependence Chronic pain Cataract Bleeding nevus Back pain Aortic valve disease COVID-19 NSTEMI (non-ST elevated myocardial infarction) PAD (peripheral artery disease) Hyperlipidemia Glaucoma Near syncope Hyperglycemia Tobacco user Gastroesophageal reflux disease COPD (chronic obstructive pulmonary disease) Hx pulmonary embolism HTN (hypertension) Prostate cancer Home Medications Medication Instructions Recorded Last Taken Type timolol maleate 0.5 % eye gel 1 drp QHS eye health 11/0811/01/24 History forming solution (Timoptic-XE) oxycodone-acetaminophen 10 mg-325 10 mg PO BID PRN Claudia n Score 1-05/0303/20/19 11/01/24 History mg tablet dorzolamide 2 % eye drops 1 drp ophthalmic (eye) TID g laucoma 06/30/23 11/01/24 History brimonidine 0.2 %-timolol 0.5 % 1 drp ophthalmic (eye) BID 11/07/23 11/01/24 History eye drops latanoprostene bunod 0.024 % eye 1 drp ophthalmic (eye ) DAILY 11/07/23 11/01/24 History drops (Vyzulta) aspirin 81 mg tablet,delayed 81 mg PO DAILY@0800 #0 ta bs 06/20/24 06/03/25 Rx release atorvastatin 40 mg tablet 40 mg PO QHS #30 tabs 11/01/24 Rx clopidogrel 75 mg tablet 75 mg PO DAILY #30 tabs 05/2606/03/25 Rx empagliflozin 10 mg tablet 10 mg PO DAILY #30 tabs 06/03/25 Rx (Jardiance) nitroglycerin 0.4 mg sublingual 0.4 mg sublingual Q5M PRN Chest 06/20/24 11/01/24 Rx tablet Pain #25 tabs pantoprazole 40 mg tablet,delayed 40 mg PO DAILY #30 t abs 06/20/24 11/01/24 Rx release potassium chloride 20 mEq 20 meq PO DAILYCM #30 tabs 1 08/20/23 11/01/24 Rx tablet,extended release(part/cryst) tamsulosin 0.4 mg capsule 0.4 mg PO QHS #30 caps 06/2011/01/24 Rx furosemide 20 mg tablet 20 mg PO DAILY #90 tabs 12/01/1511/01/24 Rx lisinopril 2.5 mg tablet 2.5 mg PO DAILY #90 tabs 01/1511/01/24 Rx metoprolol succinate 25 mg 25 mg PO DAILY #90 tabs 01/1511/01/24 Rx tablet,extended release 24 hr donepezil 5 mg tablet (Aricept) 10 mg PO QHS 06/03/25 Unknown History Allergy/AdvReac Type Severity Reaction Status Date / Time Penicillins Allergy Unknown Verified 06/03/25 13:56 Sulfa (Sulfonamide Allergy Unknown Verified 06/03/25 13:56 Antibiotics) carvedilol AdvReac Severe Respiratory Verified 06/03/25 13:56 distress hydralazine AdvReac Intermediate Dizziness Verified 06/03/25 13:56 hydrocodone (From Vicodin) AdvReac Intermediate Other Verified 06/03/25 13:56 morphine AdvReac Intermediate Shortness Verified 06/03/25 13:56 of breath lorazepam AdvReac Other Verified 06/03/25 13:56 Family History Mother COPD (chronic obstructive pulmonary disease) Father Cancer Myocardial infarction Surgical History (Updated 06/03/25 @ 14:07 by Lissa Pérez) History of cystoscopy History of PTCA (06/18/24) Hx of cardiac catheterization (~11/08/23) Stented coronary artery (~11/08/23) Hx of eye surgery Hx of tonsillectomy Social History household members: none housing: apartment number of children: 1 current occupational status: retired Smoking Status: Former smoker alcohol intake: never substance use type: does not use caffeine: Yes (all day) Type: coffee Audit: Pertinent Findings HISTORY of Pertinent Findings History of Pertinent Findings: EKG Pertinent Findings EKG Perinent findings 05/2024: NSR 06/03/25 15:38 Echo Pertinent Findings Echo (EF%) pertinent findings Echocardiogram 06/21/24 20: 06/03/25 15:32 37 Interpretation Summary Severe LV systolic dysfunction. Estimated LVEF 20 to 25%. Anterior, apical and inferior akinesis. Mild focal aortic valve thickening. There is Mild focal posterior mitral annular calcification. Pertinent Findings Echo (EF%) pertinent findings: 03/2025: EF 50-55% (improved from EF of 20%). Wall thickness normal. Aortic valve sclerosis, mild, 1+ regurgiation. Mitral valve mildly calcified. Recommendation Anesthesia Recommendation Anesthesia recommendation: F/U recommended (Obtain cardiac clearance but should be optimized for anesthesia )
--- NOTE | 2025-06-04 08:11 | PAT.ANESEVAL ---
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 When Was Last Pacemaker Check QUESTION #4 FULL TEXT: You/Your Family Experience fever (hyperthermia) with Anesthesia Last Oral Intake Last Oral intake: Last Oral Intake NPO since Meds taken in AM with sips of water? Meds patient instructed to take am of surgery PONV PONV - american studies professor: PONV - american studies professor Female No 06/03/25 14:07 HX of Motion Sickness No 06/03/25 14:07 HX of N/V After Surgery No 06/03/25 14:07 Non-Smoker Yes 06/03/25 14:07 Duration of Surgery greater No 06/03/25 14:07 than 60 minutes Number of Risk Factors 1 06/03/25 14:07 PONV Score Low Risk 06/03/25 14:07 Height & Weight Height & Weight: Anesthesia: Height & Weight Height 5 ft 5 in 11/02/24 10:03 Respiratory Assessment Respiratory Assessment - american studies professor: Respiratory Tract Infection Hx - american studies professor Hx Respiratory Tract Infection No 06/03/25 14:07 STOP Sleep Apnea STOP Sleep Apnea - american studies professor: STOP Sleep Apnea - american studies professor Hx Hypertension Yes: CONTROLLED WITH MED 06/03/25 14:07 Hx Sleep Apnea Yes 06/03/25 14:07 CPAP Yes 06/03/25 14:07 BIPAP No 06/03/25 14:07 Do you snore loudly (louder than talking or can be heard Do you often feel tired/ fatigued/ sleepy during daytime? Has anyone observed you stop breathing during sleep? STOP Results Positive 06/03/25 14:07 QUESTION #5 FULL TEXT : Do you snore loudly (louder than talking or can be heard through closed doors)? 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 Specify any problems Hx of Preganancy in last 3 N/A 06/03/25 14:07 Months Nurse Filling Out Transfusion GEOVANNA 06/03/25 14:07 & Questions: Date: 06/03/25 06/03/25 14:07 Time: 14:11 06/03/25 14:07 Patient unable to answer at this time (ie. 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 (~06/18/24) Wears dentures Wears glasses Cancer Arthritis High cholesterol Migraine headache Injury of head and neck History of IBS Gastric reflux Former smoker Sleep apnea History of stress test History of echocardiogram Hypertension Cardiology follow-up encounter History of irregular heartbeat Osteoarthritis Panic attack MARIE (dyspnea on exertion) MVP (mitral valve prolapse) Left carotid bruit Ganglion cyst Edema of both lower extremities CPAP (continuous positive airway pressure) dependence Chronic pain Cataract Bleeding nevus Back pain Aortic valve disease COVID-19 NSTEMI (non-ST elevated myocardial infarction) PAD (peripheral artery disease) Hyperlipidemia Glaucoma Near syncope Hyperglycemia Tobacco user Gastroesophageal reflux disease COPD (chronic obstructive pulmonary disease) Hx pulmonary embolism HTN (hypertension) Prostate cancer Home Medications Medication Instructions Recorded Last Taken Type timolol maleate 0.5 % eye gel 1 drp QHS eye health 07/28/16 11/01/24 History forming solution (Timoptic-XE) oxycodone-acetaminophen 10 mg-325 10 mg PO BID PRN Pain Score 1-05/0303/20/19 11/01/24 History mg tablet dorzolamide 2 % eye drops 1 drp ophthalmic (eye) TID glaucoma 06/30/23 11/01/24 History brimonidine 0.2 %-timolol 0.5 % 1 drp ophthalmic (eye) BID 11/07/23 11/01/24 History eye drops latanoprostene bunod 0.024 % eye 1 drp ophthalmic (eye) DAILY 11/07/23 11/01/24 History drops (Vyzulta) aspirin 81 mg tablet,delayed 81 mg PO DAILY@0800 #0 tabs 06/20/24 06/03/25 Rx release atorvastatin 40 mg tablet 40 mg PO QHS #30 tabs 06/20/24 11/01/24 Rx clopidogrel 75 mg tablet 75 mg PO DAILY #30 tabs 06/20/24 06/03/25 Rx empagliflozin 10 mg tablet 10 mg PO DAILY #30 tabs 06/20/24 06/03/25 Rx (Jardiance) nitroglycerin 0.4 mg sublingual 0.4 mg sublingual Q5M PRN Chest 06/20/24 11/01/24 Rx tablet Pain #25 tabs pantoprazole 40 mg tablet,delayed 40 mg PO DAILY #30 tabs 06/20/24 11/01/24 Rx release potassium chloride 20 mEq 20 meq PO DAILYCM #30 tabs 06/20/24 11/01/24 Rx tablet,extended release(part/cryst) tamsulosin 0.4 mg capsule 0.4 mg PO QHS #30 caps 06/20/24 11/01/24 Rx furosemide 20 mg tablet 20 mg PO DAILY #90 tabs 06/29/24 11/01/24 Rx lisinopril 2.5 mg tablet 2.5 mg PO DAILY #90 tabs 06/29/24 11/01/24 Rx metoprolol succinate 25 mg 25 mg PO DAILY #90 tabs 06/29/24 11/01/24 Rx tablet,extended release 24 hr donepezil 5 mg tablet (Aricept) 10 mg PO QHS 06/03/25 Unknown History Allergy/AdvReac Type Severity Reaction Status Date / Time Penicillins Allergy Unknown Verified 06/03/25 13:56 Sulfa (Sulfonamide Allergy Unknown Verified 06/03/25 13:56 Antibiotics) carvedilol AdvReac Severe Respiratory Verified 06/03/25 13:56 distress hydralazine AdvReac Intermediate Dizziness Verified 06/03/25 13:56 hydrocodone (From Vicodin) AdvReac Intermediate Other Verified 06/03/25 13:56 morphine AdvReac Intermediate Shortness Verified 06/03/25 13:56 of breath lorazepam AdvReac Other Verified 06/03/25 13:56 Family History Mother COPD (chronic obstructive pulmonary disease) Father Cancer Myocardial infarction Surgical History (Updated 06/03/25 @ 14:07 by Lissa Pérez) History of cystoscopy History of PTCA (06/18/24) Hx of cardiac catheterization (~11/08/23) Stented coronary artery (~11/08/23) Hx of eye surgery Hx of tonsillectomy Social History household members: none housing: apartment number of children: 1 current occupational status: retired Smoking Status: Former smoker alcohol intake: never substance use type: does not use caffeine: Yes (all day) Type: coffee Audit: Pertinent Findings HISTORY of Pertinent Findings History of Pertinent Findings: EKG Pertinent Findings EKG Perinent findings 05/2024: NSR 06/03/25 15:38 Echo Pertinent Findings Echo (EF%) pertinent findings 03/2025: EF 50-55% (improved 06/03/25 16:32 from EF of 20%). Wall thickness normal. Aortic valve sclerosis, mild, 1+ regurgiation. Mitral valve mildly calcified. Echo (EF%) pertinent findings Echocardiogram 06/21/24 20: 06/03/25 15:32 37 Interpretation Summary Severe LV systolic dysfunction. Estimated LVEF 20 to 25%. Anterior, apical and inferior akinesis. Mild focal aortic valve thickening. There is Mild focal posterior mitral annular calcification. Recommendation Anesthesia Recommendation Anesthesia recommendation: F/U recommended (I do not see a cardiac clearance in the files uploaded; just cardiology note )
--- NOTE | 2025-06-04 10:45 | PAT.ANESEVAL ---
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 When Was Last Pacemaker Check QUESTION #4 FULL TEXT: You/Your Family Experience fever (hyperthermia) with Anesthesia Last Oral Intake Last Oral intake: Last Oral Intake NPO since Meds taken in AM with sips of water? 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 Has anyone observed you stop breathing during sleep? STOP Results Positive 06/03/25 14:07 QUESTION #5 FULL TEXT : Do you snore loudly (louder than talking or can be heard through closed doors)? 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 Specify any problems Hx of Preganancy in last 3 N/A 06/03/25 14:07 Months Nurse Filling Out Transfusion GEOVANNA 06/03/25 14:07 & Questions: Date: 06/03/25 06/03/25 14:07 Time: 14:11 06/03/25 14:07 Patient unable to answer at this time (ie. 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 (~06/18/24) Wears dentures Wears glasses Cancer Arthritis High cholesterol Migraine headache Injury of head and neck History of IBS Gastric reflux Former smoker Sleep apnea History of stress test History of echocardiogram Hypertension Cardiology follow-up encounter History of irregular heartbeat Osteoarthritis Panic attack MARIE (dyspnea on exertion) MVP (mitral valve prolapse) Left carotid bruit Ganglion cyst Edema of both lower extremities CPAP (continuous positive airway pressure) dependence Chronic pain Cataract Bleeding nevus Back pain Aortic valve disease COVID-19 NSTEMI (non-ST elevated myocardial infarction) PAD (peripheral artery disease) Hyperlipidemia Glaucoma Near syncope Hyperglycemia Tobacco user Gastroesophageal reflux disease COPD (chronic obstructive pulmonary disease) Hx pulmonary embolism HTN (hypertension) Prostate cancer Home Medications Medication Instructions Recorded Last Taken Type timolol maleate 0.5 % eye gel 1 drp QHS eye health 07/28/16 11/01/24 History forming solution (Timoptic-XE) oxycodone-acetaminophen 10 mg-325 10 mg PO BID PRN Pain Score 1-05/0303/20/19 11/01/24 History mg tablet dorzolamide 2 % eye drops 1 drp ophthalmic (eye) TID glaucoma 06/30/23 11/01/24 History brimonidine 0.2 %-timolol 0.5 % 1 drp ophthalmic (eye) BID 11/07/23 11/01/24 History eye drops latanoprostene bunod 0.024 % eye 1 drp ophthalmic (eye) DAILY 11/07/23 11/01/24 History drops (Vyzulta) aspirin 81 mg tablet,delayed 81 mg PO DAILY@0800 #0 tabs 06/20/24 06/03/25 Rx release atorvastatin 40 mg tablet 40 mg PO QHS #30 tabs 06/20/24 11/01/24 Rx clopidogrel 75 mg tablet 75 mg PO DAILY #30 tabs 06/20/24 06/03/25 Rx empagliflozin 10 mg tablet 10 mg PO DAILY #30 tabs 06/20/24 06/03/25 Rx (Jardiance) nitroglycerin 0.4 mg sublingual 0.4 mg sublingual Q5M PRN Chest 06/20/24 11/01/24 Rx tablet Pain #25 tabs pantoprazole 40 mg tablet,delayed 40 mg PO DAILY #30 tabs 06/20/24 11/01/24 Rx release potassium chloride 20 mEq 20 meq PO DAILYCM #30 tabs 06/20/24 11/01/24 Rx tablet,extended release(part/cryst) tamsulosin 0.4 mg capsule 0.4 mg PO QHS #30 caps 06/20/24 11/01/24 Rx furosemide 20 mg tablet 20 mg PO DAILY #90 tabs 06/29/24 11/01/24 Rx lisinopril 2.5 mg tablet 2.5 mg PO DAILY #90 tabs 06/29/24 11/01/24 Rx metoprolol succinate 25 mg 25 mg PO DAILY #90 tabs 06/29/24 11/01/24 Rx tablet,extended release 24 hr donepezil 5 mg tablet (Aricept) 10 mg PO QHS 06/03/25 Unknown History Allergy/AdvReac Type Severity Reaction Status Date / Time Penicillins Allergy Unknown Verified 06/03/25 13:56 Sulfa (Sulfonamide Allergy Unknown Verified 06/03/25 13:56 Antibiotics) carvedilol AdvReac Severe Respiratory Verified 06/03/25 13:56 distress hydralazine AdvReac Intermediate Dizziness Verified 06/03/25 13:56 hydrocodone (From Vicodin) AdvReac Intermediate Other Verified 06/03/25 13:56 morphine AdvReac Intermediate Shortness Verified 06/03/25 13:56 of breath lorazepam AdvReac Other Verified 06/03/25 13:56 Family History Mother COPD (chronic obstructive pulmonary disease) Father Cancer Myocardial infarction Surgical History (Updated 06/03/25 @ 14:07 by Lissa Pérez) History of cystoscopy History of PTCA (06/18/24) Hx of cardiac catheterization (~11/08/23) Stented coronary artery (~11/08/23) Hx of eye surgery Hx of tonsillectomy Social History household members: none housing: apartment number of children: 1 current occupational status: retired Smoking Status: Former smoker alcohol intake: never substance use type: does not use caffeine: Yes (all day) Type: coffee Audit: Pertinent Findings HISTORY of Pertinent Findings History of Pertinent Findings: EKG Pertinent Findings EKG Perinent findings 05/2024: NSR 06/03/25 15:38 Echo Pertinent Findings Echo (EF%) pertinent findings 03/2025: EF 50-55% (improved 06/03/25 16:32 from EF of 20%). Wall thickness normal. Aortic valve sclerosis, mild, 1+ regurgiation. Mitral valve mildly calcified. Echo (EF%) pertinent findings Echocardiogram 06/21/24 20: 06/03/25 15:32 37 Interpretation Summary Severe LV systolic dysfunction. Estimated LVEF 20 to 25%. Anterior, apical and inferior akinesis. Mild focal aortic valve thickening. There is Mild focal posterior mitral annular calcification. Recommendation Anesthesia Recommendation Anesthesia recommendation: OPTIMIZED for anesthesia
[2025-06-07] VITALS (9 sets, daily range): BP systolic 156–174; BP diastolic 64–80; PULSE 52–88; RESP 16; TEMP 36.6–36.9; O2SAT 98–99; BMI 25.7
--- NOTE | 2025-06-07 08:28 | PCM.PRE.AN2 ---
ASA Classification* ASA Classification ASA Classification: 3 Assessment & Plan Anesthesia* Anesthesia Assessment Anesthesia Assessment: Discussed sedation and/or anesthesia options, risks, benefits, and alternatives with patient/parents/legal guardian/POA. Questions invited. The patient/parents/legal guardian/POA seems to understand and agrees to proceed with anesthesia plan. Reviewed the physical assessment, medical history, allergy history and patient home medications list prior to surgery/procedure/anesthetic and documented any changes. Performed airway and anesthesia risk assessments. Anesthesia Type Anesthesia Type: MAC History Source History Obtained from:: Patient and Chart Anesthesia Focused Assessment* Temperature: 98.5 F Pulse Rate: 88 Blood Pressure: 171/64 Respiratory Rate: 16 Pulse Ox: 99 Oxygen Delivery Method: Room Air Airway Assessment Mouth opens: >3 cm Mallampati Score: II Teeth Condition: Dentures (Patient has full upper dentures which are currently out.) and Missing (Patient has multiple missing teeth on the lower jaw. Remaining teeth are tight.) Neck Range of motion (ROM): Limited ROM (Slight Decrease) Labs Anesthesia Preop lab: CBC WBC, (4.4-11.0) 8.2 K/mm3 05/20/25, 09:49 RBC, (4.6-6.2) 4.59 M/mm3 L 05/20/25, :49 Hgb, (13.0-16.5) 14.2 g/dL 05/20/25, 09:49 Hct, (40-54) 43.6 % 05/20/25, 09:49 Plt Count, (150-450) 205 K/mm3 05/20/25, 09:49 CHEMISTRY Potassium, (3.3-5.1) 4.9 mmol/L 05/20/25, 09:49 Sodium, (133-145) 137 mmol/L 05/20/25, 09:49 Magnesium, (1.6-2.6) 2.2 mg/dL 06/28/24, 10:30 Phosphorus, (2.5-4.9) 2.5 mg/dL 06/28/24, 10:30 BUN, (4-19) 11 mg/dL 05/20/25, 09:49 Creatinine, (0.70-1.20) 0.79 mg/dL 05/20/25, 09:49 Glucose, (70-99) 102 mg/dL H 05/20/25, 09:49 TSH, (0.358-3.740) 0.543 uIU/mL 06/19/24, 05:00 COAG PT, (11.7-14.9) 16.7 SECONDS H 06/21/24, 15:51 Pre-Assessment Diagnosis/Proposed Procedure Planned Operative Procedure(s): (L) Cysto, Insertion Stent Anesthesia History Anesthesia History - direct marketing representative: Anesthesia History - direct marketing representative Hx Hospitalization No 06/03/25 14:07 Any Problems With Anesthesia No 06/03/25 14:07 Cholinesterase deficiency No 06/03/25 14:07 You/Your Family Experience No 06/03/25 14:07 fever (hyperthermia) with Relationship Recent Exposure to Contagious No 11/02/24 10:03 Disease Does patient have nerve No 06/03/25 14:07 stimulator Patient instructed to have device shut off --Does patient have Pacemaker No 06/07/25 08:07 or ICD? When Was Last Pacemaker Check QUESTION #4 FULL TEXT: You/Your Family Experience fever (hyperthermia) with Anesthesia Last Oral Intake Last Oral intake: Last Oral Intake NPO since 07:00 06/07/25 08:07 Meds taken in AM with sips of Yes 06/07/25 08:07 water? Meds patient instructed to take am of surgery Any additional information?: Yes NPO since: 07:00 (Patient had applesauce with his medications at 7 AM.) PONV PONV - direct marketing representative: PONV - direct marketing representative Female No 06/03/25 14:07 HX of Motion Sickness No 06/03/25 14:07 HX of N/V After Surgery No 06/03/25 14:07 Non-Smoker Yes 06/03/25 14:07 Duration of Surgery greater No 06/03/25 14:07 than 60 minutes Number of Risk Factors 1 06/03/25 14:07 PONV Score Low Risk 06/03/25 14:07 Height & Weight Height & Weight: Anesthesia: Height & Weight Height 5 ft 5 in 06/07/25 08:07 Weight: 70 kg 06/07/25 08:07 Body Mass Index (BMI) 25.7 06/07/25 08:07 Respiratory Assessment Respiratory Assessment - direct marketing representative: Respiratory Tract Infection Hx - direct marketing representative Hx Respiratory Tract Infection No 06/03/25 14:07 STOP Sleep Apnea STOP Sleep Apnea - direct marketing representative: STOP Sleep Apnea - direct marketing representative Hx Hypertension Yes: CONTROLLED WITH MED 06/03/25 14:07 Hx Sleep Apnea Yes 06/03/25 14:07 CPAP Yes 06/03/25 14:07 BIPAP No 06/03/25 14:07 Do you snore loudly (louder than talking or can be heard Do you often feel tired/ fatigued/ sleepy during daytime? Has anyone observed you stop breathing during sleep? STOP Results Positive 06/03/25 14:07 QUESTION #5 FULL TEXT : Do you snore loudly (louder than talking or can be heard through closed doors)? Tobacco Use History Tobacco Use History - direct marketing representative: Tobacco Use History - direct marketing representative Tobacco Use Non-smoker 08/18/21 15:25 Smoking Status Former smoker 06/03/25 14:07 Hx Tobacco Use No 06/03/25 14:07 Years Smoking Packs Smoked per Day Smoking Cessation Date was No - quit smoking greater 06/03/25 14:07 within the last 15 years than 15 years ago Hx Smoking Cessation Date 06/03/25 14:07 Hx Smoking Cessation No 06/03/25 14:07 Counseling Hematologic Medial History Hematologic Hx - direct marketing representative: Hematologic Medical Hx - dredge master Hx of Blood Transfusion No 06/03/25 14:07 Hx of Transfusion in last 3 No 06/03/25 14:07 Months Date of Last Transfusion (if within last 3 months) Ever experience any problems No 06/03/25 14:07 with transfusion(s)? Specify any problems Hx of Preganancy in last 3 N/A 06/03/25 14:07 Months Nurse Filling Out Transfusion MGRIFFITH 06/03/25 14:07 & Questions: Date: 06/03/25 06/03/25 14:07 Time: 14:11 06/03/25 14:07 Patient unable to answer at this time (ie. confused, unrespo /Reproduction History /Reproductive History - direct marketing representative: /Reproductive Hx- direct marketing representative Hx Now Gestational Age (in weeks): EDC: Hx Hx Para Hx Section SAB No 10/22/24 11:22 Does the father of the baby or his family experience fever w Father of the baby Malignant Hypertension history comment Active Medications Active Medications: Current Medications Generic Name Dose Route Start Last Admin Trade Name Freq PRN Reason Stop Dose Admin Lactated Ringer's 1,000 mls @ 15 mls/hr 06/07/25 08:00 [facility] History Easy bruising Injury of back On home oxygen therapy ST elevation (STEMI) myocardial infarction involving left anterior descending coronary artery (~06/18/24) Wears dentures Wears glasses Cancer Arthritis High cholesterol Migraine headache Injury of head and neck History of IBS Gastric reflux Former smoker Sleep apnea History of stress test History of echocardiogram Hypertension Cardiology follow-up encounter History of irregular heartbeat Osteoarthritis Panic attack MARIE (dyspnea on exertion) MVP (mitral valve prolapse) Left carotid bruit Ganglion cyst Edema of both lower extremities CPAP (continuous positive airway pressure) dependence Chronic pain Cataract Bleeding nevus Back pain Aortic valve disease COVID-19 NSTEMI (non-ST elevated myocardial infarction) PAD (peripheral artery disease) Hyperlipidemia Glaucoma Near syncope Hyperglycemia Tobacco user Gastroesophageal reflux disease COPD (chronic obstructive pulmonary disease) Hx pulmonary embolism HTN (hypertension) Prostate cancer Home Medications Medication Instructions Recorded Last Taken Type timolol maleate 0.5 % eye gel 1 drp [facility] eye health 07/28/16 11/01/24 History forming solution (Timoptic-XE) oxycodone-acetaminophen 10 mg-325 10 mg PO BID PRN Pain Score 1-05/0303/20/19 11/01/24 History mg tablet dorzolamide 2 % eye drops 1 drp ophthalmic (eye) TID glaucoma 06/30/23 11/01/24 History brimonidine 0.2 %-timolol 0.5 % 1 drp ophthalmic (eye) BID 11/07/23 11/01/24 History eye drops latanoprostene bunod 0.024 % eye 1 drp ophthalmic (eye) DAILY 11/07/23 11/01/24 History drops (Vyzulta) aspirin 81 mg tablet,delayed 81 mg PO DAILY@0800 #0 tabs 06/20/24 06/03/25 Rx release atorvastatin 40 mg tablet 40 mg PO QHS #30 tabs 06/20/24 11/01/24 Rx clopidogrel 75 mg tablet 75 mg PO DAILY #30 tabs 06/20/24 06/03/25 Rx empagliflozin 10 mg tablet 10 mg PO DAILY #30 tabs 06/20/24 06/03/25 Rx (Jardiance) nitroglycerin 0.4 mg sublingual 0.4 mg sublingual Q5M PRN Chest 06/20/24 11/01/24 Rx tablet Pain #25 tabs pantoprazole 40 mg tablet,delayed 40 mg PO DAILY #30 tabs 06/20/24 11/01/24 Rx release potassium chloride 20 mEq 20 meq PO DAILYCM #30 tabs 06/20/24 11/01/24 Rx tablet,extended release(part/cryst) tamsulosin 0.4 mg capsule 0.4 mg PO QHS #30 caps 06/20/24 11/01/24 Rx furosemide 20 mg tablet 20 mg PO DAILY #90 tabs 06/29/24 11/01/24 Rx lisinopril 2.5 mg tablet 2.5 mg PO DAILY #90 tabs 06/29/24 11/01/24 Rx metoprolol succinate 25 mg 25 mg PO DAILY #90 tabs 06/29/24 11/01/24 Rx tablet,extended release 24 hr donepezil 5 mg tablet (Aricept) 10 mg PO QHS 06/03/25 Unknown History Allergy/AdvReac Type Severity Reaction Status Date / Time Penicillins Allergy Unknown Verified 06/07/25 08:05 Sulfa (Sulfonamide Allergy Unknown Verified 06/07/25 08:05 Antibiotics) carvedilol AdvReac Severe Respiratory Verified 06/07/25 08:05 distress hydralazine AdvReac Intermediate Dizziness Verified 06/07/25 08:05 hydrocodone (From Vicodin) AdvReac Intermediate Other Verified 06/07/25 08:05 morphine AdvReac Intermediate Shortness Verified 06/07/25 08:05 of breath lorazepam AdvReac Other Verified 06/07/25 08:05 Family History Mother COPD (chronic obstructive pulmonary disease) Father Cancer Myocardial infarction Surgical History History of cystoscopy History of PTCA (06/18/24) Hx of cardiac catheterization (~04/16/24) Stented coronary artery (~11/08/23) Hx of eye surgery Hx of tonsillectomy Social History household members: none housing: apartment number of children: 1 current occupational status: retired Smoking Status: Former smoker alcohol intake: never substance use type: does not use caffeine: Yes (all day) Type: coffee Review of Systems (Anesthesia) ROS Narrative System reviewed and no additional complaints, except as documented.
[2025-06-07] MEDS: Lidocaine 1% (5 ml sdv) 5 ML Vial IV (14:37)
[2025-06-07] MEDS: Cefazolin 1 GM/5 ML Vial 2 GM IV (14:38)
[2025-06-07] MEDS: fentaNYL 100 MCG/2 ML Ampul IV (14:45)
--- NOTE | 2025-06-07 14:53 | DCINST_ITS ---
Discharge Instructions DC O2, CPAP, BIPAP needs Home O2 Discharge instructions: No Dressing / Incision Discharge Activity: Return to Normal Activity and May Not Drive (while taking narcotic pain medications.) Dressing / Incision Call your doctor if you observe: Fever of 101 or Higher Follow Up Care Please Follow Up With: Delgado Salguero MD When: Call [phone] for an appointment Test Results: Test results from this visit will be discussed in further detail at your follow- up appointment, if applicable. Discharge Plan Admission Primary Reason for Your Visit: stent change Attending Provider: Delgado Salguero Primary Care Provider: ENRICO BELLAMY Instructions Print Language: Spanish Discharge Orders/Prescriptions Prescriptions: New ciprofloxacin HCl [Cipro] 500 mg tablet 500 mg PO BID Qty: 6 0RF Continued timolol maleate [Timoptic-XE] 1 DROP gel forming solution 1 drp Each Eye QHS oxycodone-acetaminophen 1 EACH tablet 10 mg PO BID PRN (Reason: Pain Score 1-10/10) Patient Comments: TAKE 1 TABLET BY MOUTH EVERY 12 HOURS dorzolamide 2 % drops 1 drp ophthalmic (eye) TID Patient Comments: INSTILL 1 DROP INTO BOTH EYES 3 TIMES A DAY brimonidine-timolol 0.2-0.5 % drops 1 drp ophthalmic (eye) BID Vyzulta 0.024 % drops 1 drp ophthalmic (eye) DAILY atorvastatin 40 mg Tablet 40 mg PO QHS Qty: 30 0RF clopidogrel 75 mg Tablet 75 mg PO DAILY Qty: 30 0RF aspirin 81 mg Tablet,Delayed Release (Dr/Ec) 81 mg PO DAILY@0800 Qty: 0 0RF potassium chloride 20 mEq Tablet,Er Particles/Crystals 20 meq PO DAILYCM Qty: 30 0RF pantoprazole 40 mg Tablet,Delayed Release (Dr/Ec) 40 mg PO DAILY Qty: 30 0RF nitroglycerin 0.4 mg Tablet, Sublingual 0.4 mg sublingual Q5M PRN (Reason: Chest Pain) Qty: 25 0RF Jardiance 10 mg Tablet 10 mg PO DAILY Qty: 30 0RF tamsulosin 0.4 mg Capsule 0.4 mg PO QHS Qty: 30 0RF donepezil [Aricept] 5 mg tablet 10 mg PO QHS Rx Instructions: after one month, increase to 10 mg daily furosemide 20 mg Tablet 20 mg PO DAILY Qty: 90 0RF metoprolol succinate 25 mg Tablet Extended Release 24 Hr 25 mg PO DAILY Qty: 90 0RF lisinopril 2.5 mg Tablet 2.5 mg PO DAILY Qty: 90 0RF Referrals / Follow Up: ENRICO BELLAMY CRNP [Primary Care Provider, Family Practice] Disposition Disposition (needs filled in before D/C Order can be placed): Home, Self Care
--- NOTE | 2025-06-07 14:53 | OP.PCM_ITS ---
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 Surgery/Procedure Performed: Cystoscopy left retrograde pyelogram left stent change sustainable systems analyst: No Type of Anesthesia: General RN Documented Start/Stop Times: Operation Date: 06/07/25 10:00 Case Time Into Pre-Op 06/07/25 07:56 Out of Pre-Op 06/07/25 14:28 Anesthesia Start 06/07/25 14:30 Into Room 06/07/25 14:30 Procedure Start 06/07/25 14:40 Procedure Start Time: 14:40 Procedure Stop Time: 14:53 Select all DRAINS/GRAFTS/IMPLANTS that apply: Drains Drain details: 6 Dominican by 26 cm stent new Estimated Blood Loss: None Specimen collected: No Description of surgery: Patient was taken back to the operating room after induction of general anesthesia, the patient was placed in dorsolithotomy position. The urethra and genitals were prepped and draped in usual sterile fashion. Using a 21 Dominican rigid cystourethroscope the entire length of the urethra was normal then went into the bladder. Identified the trigone the left and right ureteral orifice. Had a mass surrounding the left urereral orfice. I then cannulated the left ureteral orifice and advanced a wire up into the kidney. I then backloaded a 5 Dominican open ended catheter over the wire and injected contrast to delineate the anatomy. After the retrograde was performed I then used fluoroscopic images and guidance to advanced a wire up into the kidney and over the 0.038 glidewire I advanced a 6 Dominican by 26 cm double pigtail stent. I then pulled the 0.038 Glidewire off and the stent coiled in the kidney bladder good position. The bladder was then drained. We confirmed the position of the stent by fluoroscopy. Patient anesthetic was reversed and was taken back to the PACU in good condition. Surgical Findings: Still has obstruction of the left kidney from tumor Complications Complications: No Admit VTE Documentation VTE Present on Admission: No VTE Mechan Device Prophylaxis: SCD's VTE Pharm Prophylaxis ordered?: No
--- NOTE | 2025-06-07 15:01 | PCM.POST.ANE ---
Anesthesia: Postop Eval I Current Vital Signs Temperature: 97.8 F Pulse Rate: 71 Blood Pressure: 156/71 Respiratory Rate: 16 Pulse Ox: 98 Oxygen Delivery Method: Room Air Assessment Airway patent: Yes Spontaneous unlabored respirations: Yes Mental status: Awake and Calm nausea: No Vomiting: No Anesthesia Complication: No Fluid Hydration Crystalloid volume administer (ml): 1,100 Total IV fluid infused: 1,100 Progress Note Anesthesia document: Postop Eval 1 completed: Yes
--- NOTE | 2025-06-07 15:45 | POSTOPAN2_ITS ---
Anesthesia Postop Eval I Sum Postop Eval Completion status Anesthesia document: Postop Eval 1 completed: Yes Anesthesia Postop Eval I Summary Anesthesia Postop Eval I Summary: Anesthesia Postop Eval I: Assessment Summary Airway patent Yes 06/07/25 15:02 SLD INCLUSION [email or web address] Spontaneous unlabored Yes 06/07/25 15:02 SLD INCLUSION [email or web address] respirations Mental status Awake,Calm 06/07/25 15:02 SLD INCLUSION [email or web address] nausea No 06/07/25 15:02 SLD INCLUSION [email or web address] Vomiting No 06/07/25 15:02 SLD INCLUSION [email or web address] Anesthesia Postop Eval I: Fluid Summary Crystalloid volume administer 1,100 06/07/25 15:02 SLD INCLUSION [email or web address] (ml) Colloids volume administered ( ml) Blood Product volume administered (ml) Total IV fluid infused 1,100 06/07/25 15:02 SLD INCLUSION [email or web address] Anesthesia Postop Eval I: Summary Notes Anesthesia Complication No 06/07/25 15:02 SLD INCLUSION [email or web address] Anesthesia Complication Comment: Post-operative progress note Anesthesia: Postop Eval II Evaluation Mental status: Awake and Calm Pain Level: 0 nausea: No Vomiting: No Complications Anesthesia Complication: No
--- NOTE | 2025-06-07 15:45 | PCM.POSTANE2 ---
Anesthesia Postop Eval I Sum Postop Eval Completion status Anesthesia document: Postop Eval 1 completed: Yes Anesthesia Postop Eval I Summary Anesthesia Postop Eval I Summary: Anesthesia Postop Eval I: Assessment Summary Airway patent Yes 06/07/25 15:02 WARE [email or web address] Spontaneous unlabored Yes 06/07/25 15:02 WARE [email or web address] respirations Mental status Awake,Calm 06/07/25 15:02 WARE [email or web address] nausea No 06/07/25 15:02 WARE [email or web address].SHOF Vomiting No 06/07/25 15:02 WARE [email or web address].SHOF Anesthesia Postop Eval I: Fluid Summary Crystalloid volume administer 1,100 06/07/25 15:02 WARE [email or web address].SHOF (ml) Colloids volume administered ( ml) Blood Product volume administered (ml) Total IV fluid infused 1,100 06/07/25 15:02 WARE [email or web address] Anesthesia Postop Eval I: Summary Notes Anesthesia Complication No 06/07/25 15:02 WARE [email or web address] Anesthesia Complication Comment: Post-operative progress note Anesthesia: Postop Eval II Evaluation Mental status: Awake and Calm Pain Level: 0 nausea: No Vomiting: No Complications Anesthesia Complication: No
== END 2025-06-07 15:56 | disposition home or self-care (01) ==
LOC: SDC 07:54 → AC 07:56
PROVIDERS: PCP Nurse Practitioner Adult Health; Referring Provider Urology; Visit Provider Urology
DX: C61 Malignant neoplasm of prostate (principal); Z87.891 Personal history of nicotine dependence; N13.4 Hydroureter
CPT/HCPCS: 52332; 00910; 76000; C1769; C2617